=== PATIENT | female | born 1955 | race Caucasian/White ===

== ENCOUNTER 2022-11-21 10:38 | Outpatient (OUT) | payer MEDICARE, SELFPAY ==
[2022-11-21 11:11] LABS: Bilirubin Urine NEGATIVE (NEGATIVE); Blood Urine NEGATIVE (NEGATIVE); Clarity Urine CLEAR (CLEAR); Color Urine YELLOW (YELLOW); Glucose Urine UA NEGATIVE (NEGATIVE); Ketones Urine NEGATIVE (NEGATIVE); Leukocyte Esterase Urine NEGATIVE (NEGATIVE); Nitrite Urine NEGATIVE (NEGATIVE); Protein Urine NEGATIVE (NEG/TRACE); Specific Gravity Urine >=1.030 (1.005-1.025); Urobilinogen Urine 0.2 EU/dL (0.2-1.0); pH Urine 5.5 (5.0-9.0)
[2022-11-21 11:23] LABS: Microalbumin Urine Random 1.6 mg/dL (<=30.0)
[2022-11-21 11:30] LABS: Basophils Percent Auto 0.2 % (0.2-2.0); Eosinophils Absolute Auto 0.2 10^3/uL (0.0-0.7); Eosinophils Percent Auto 1.7 % (0.9-7.0); Hematocrit 41.3 % (36.0-48.0); Hemoglobin 13.3 g/dL (12.0-16.0); Immature Granulocytes Abs Auto 0.09 10^3/uL (0.00-0.03); Lymphocytes Absolute Auto 2.1 10^3/uL (1.2-3.8); Lymphocytes Percent Auto 22.1 % (20.5-60.0); Mean Corpuscular HGB Conc 32.2 g/dL (29.9-35.2); Mean Corpuscular Hemoglobin 29.4 pg (26.7-34.0); Mean Corpuscular Volume 91.4 fL (81.0-99.0); Mean Platelet Volume 10.3 fL (9.5-13.5); Monocytes Percent Auto 11.1 % (1.7-12.0); Neutrophils Percent Auto 63.9 % (43.0-75.0); Platelet Count 273 10^3/uL (150-450); Red Blood Count 4.52 10^6/uL (4.20-5.40); Red Cell Distribution Width 14.5 % (11.0-15.0); White Blood Count 9.4 10^3/uL (4.0-11.0)
[2022-11-21 11:54] LABS: Alanine Aminotransferase 32 U/L (14-59); Albumin Globulin Ratio 1.1; Albumin Level 3.5 g/dL (3.4-5.0); Alkaline Phosphatase 73 U/L (46-116); Anion Gap 9.8; Aspartate Amino Transferase 21 U/L (15-37); BUN Creatinine Ratio 21.2; Bilirubin Total 0.4 mg/dL (0.2-1.0); Calcium 8.8 mg/dL (8.5-10.1); Carbon Dioxide 30.5 mmol/L (21.0-32.0); Chloride 105 mmol/L (98-107); Estimated GFR (African America >60 (>=60); Estimated GFR (Non-African Ame >60 (>=60); Globulin 3.3 g/dL; Glucose 88 mg/dL (74-106); Potassium 4.3 mmol/L (3.5-5.1); Sodium 141 mmol/L (136-145); Total Protein 6.8 g/dL (6.4-8.2)
== END 2022-11-21 10:39 ==
LOC: LAB 10:42
PROVIDERS: PCP Internal Medicine; Visit Provider Internal Medicine
DX: N17.9 Acute kidney failure, unspecified (principal); Z98.84 Bariatric surgery status
CPT/HCPCS: 36415; 80053; 81003; 82043; 85025

== ENCOUNTER 2022-12-11 12:19 | Outpatient (OUT) | payer MEDICARE, SELFPAY ==
[2022-12-11 16:02] LABS: Basophils Percent Auto 0.3 % (0.2-2.0); Eosinophils Absolute Auto 0.2 10^3/uL (0.0-0.7); Eosinophils Percent Auto 1.7 % (0.9-7.0); Hematocrit 41.8 % (36.0-48.0); Hemoglobin 13.3 g/dL (12.0-16.0); Immature Granulocytes Abs Auto 0.23 10^3/uL (0.00-0.03); Immature Granulocytes Pct Auto 2.2 % (0.0-0.5); Lymphocytes Percent Auto 19.3 % (20.5-60.0); Mean Corpuscular HGB Conc 31.8 g/dL (29.9-35.2); Mean Corpuscular Hemoglobin 29.2 pg (26.7-34.0); Mean Corpuscular Volume 91.9 fL (81.0-99.0); Mean Platelet Volume 10.7 fL (9.5-13.5); Monocytes Percent Auto 9.4 % (1.7-12.0); Neutrophils Absolute Auto 7.1 10^3/uL (1.4-6.5); Neutrophils Percent Auto 67.1 % (43.0-75.0); Platelet Count 321 10^3/uL (150-450); Red Blood Count 4.55 10^6/uL (4.20-5.40); Red Cell Distribution Width 14.9 % (11.0-15.0); White Blood Count 10.6 10^3/uL (4.0-11.0)
[2022-12-11 16:10] LABS: Erythrocyte Sedimentation Rate 14 mm/hr (<=30)
[2022-12-11 17:07] LABS: Alanine Aminotransferase 21 U/L (14-59); Albumin Level 3.6 g/dL (3.4-5.0); Alkaline Phosphatase 72 U/L (46-116); Anion Gap 10.2; Aspartate Amino Transferase 21 U/L (15-37); BUN Creatinine Ratio 14.7; Bilirubin Total 0.4 mg/dL (0.2-1.0); Calcium 8.4 mg/dL (8.5-10.1); Chloride 106 mmol/L (98-107); Estimated GFR (African America >60 (>=60); Estimated GFR (Non-African Ame 50 (>=60); Globulin 3.5 g/dL; Glucose 98 mg/dL (74-106); Potassium 4.2 mmol/L (3.5-5.1); Sodium 141 mmol/L (136-145); Total Protein 7.1 g/dL (6.4-8.2)
[2022-12-11 17:11] LABS: C Reactive Protein <0.2 mg/dL (<=1.0)
== END 2022-12-11 12:20 | disposition home or self-care (01) ==
LOC: LAB 12:22
PROVIDERS: PCP Internal Medicine
DX: M31.5 Giant cell arteritis with polymyalgia rheumatica (principal); R76.0 Raised antibody titer; Z79.899 Other long term (current) drug therapy
CPT/HCPCS: 36415; 80053; 85025; 85652; 86140

== ENCOUNTER 2023-05-29 10:08 | Outpatient (OUT) | payer MEDICARE, SELFPAY ==
[2023-05-29 10:38] LABS: Basophils Percent Auto 0.1 % (0.2-2.0); Eosinophils Absolute Auto 0.2 10^3/uL (0.0-0.7); Eosinophils Percent Auto 2.4 % (0.9-7.0); Hematocrit 38.2 % (36.0-48.0); Hemoglobin 11.7 g/dL (12.0-16.0); Immature Granulocytes Abs Auto 0.08 10^3/uL (0.00-0.03); Immature Granulocytes Pct Auto 0.9 % (0.0-0.5); Lymphocytes Absolute Auto 2.4 10^3/uL (1.2-3.8); Lymphocytes Percent Auto 26.4 % (20.5-60.0); Mean Corpuscular HGB Conc 30.6 g/dL (29.9-35.2); Mean Corpuscular Hemoglobin 30.2 pg (26.7-34.0); Mean Corpuscular Volume 98.7 fL (81.0-99.0); Monocytes Absolute Auto 0.9 10^3/uL (0.3-0.8); Monocytes Percent Auto 10.1 % (1.7-12.0); Neutrophils Absolute Auto 5.5 10^3/uL (1.4-6.5); Neutrophils Percent Auto 60.1 % (43.0-75.0); Platelet Count 331 10^3/uL (150-450); Red Blood Count 3.87 10^6/uL (4.20-5.40); Red Cell Distribution Width 13.9 % (11.0-15.0); White Blood Count 9.2 10^3/uL (4.0-11.0)
[2023-05-29 11:13] LABS: Percent Iron Saturation 16.3 %
[2023-05-29 11:17] LABS: Alanine Aminotransferase 41 U/L (14-59); Albumin Level 3.5 g/dL (3.4-5.0); Alkaline Phosphatase 55 U/L (46-116); Anion Gap 12.4; Aspartate Amino Transferase 26 U/L (15-37); BUN Creatinine Ratio 22.8; Bilirubin Total 0.3 mg/dL (0.2-1.0); Calcium 8.7 mg/dL (8.5-10.1); Carbon Dioxide 32.5 mmol/L (21.0-32.0); Chloride 107 mmol/L (98-107); Estimated GFR (African America 53 (>=60); Estimated GFR (Non-African Ame 43 (>=60); Globulin 3.4 g/dL; Glucose 77 mg/dL (74-106); Potassium 3.9 mmol/L (3.5-5.1); Sodium 148 mmol/L (136-145); Total Protein 6.9 g/dL (6.4-8.2)
[2023-06-02 04:06] LABS: Vitamin B6, Plasma 16.3 ug/L (3.4-65.2)
== END 2023-05-29 10:09 | disposition home or self-care (01) ==
LOC: LAB 10:10
PROVIDERS: PCP Internal Medicine; Visit Provider Nurse Practitioner Family
DX: M31.5 Giant cell arteritis with polymyalgia rheumatica (principal); R76.0 Raised antibody titer; Z79.899 Other long term (current) drug therapy; Z98.84 Bariatric surgery status
CPT/HCPCS: 36415; 80053; 82306; 82607; 82728; 83540; 83550; 84207; 85025; 85652; 86140

== ENCOUNTER 2023-05-29 10:11 | Outpatient (OUT) | payer MEDICARE, SELFPAY ==
[2023-05-29 10:56] LABS: C Reactive Protein <0.50 mg/dL (<=0.50)
[2023-05-29 11:07] LABS: Erythrocyte Sedimentation Rate 37 mm/hr (<=30)
== END 2023-05-29 10:12 | disposition home or self-care (01) ==
PROVIDERS: PCP Internal Medicine; Visit Provider Registered Nurse
DX: M31.5 Giant cell arteritis with polymyalgia rheumatica (principal); R76.0 Raised antibody titer; Z79.899 Other long term (current) drug therapy
CPT/HCPCS: 36415; 85652; 86140

== ENCOUNTER 2023-11-20 06:46 | Outpatient (OUT) | payer MEDICARE, SELFPAY ==
[2023-11-20 07:08] LABS: Erythrocyte Sedimentation Rate 28 mm/hr (<=30)
[2023-11-20 07:22] LABS: C Reactive Protein 0.59 mg/dL (<=0.50)
== END 2023-11-20 06:47 | disposition home or self-care (01) ==
LOC: LAB 06:47
PROVIDERS: PCP Internal Medicine; Visit Provider Registered Nurse
DX: M31.5 Giant cell arteritis with polymyalgia rheumatica (principal); R76.0 Raised antibody titer; Z79.899 Other long term (current) drug therapy
CPT/HCPCS: 36415; 85652; 86140

== ENCOUNTER 2023-12-05 09:58 | Outpatient (OUT) | payer MEDICARE, SELFPAY ==
--- OUTSIDE RECORDS SUMMARY | 2023-12-05 10:08 | XMS_ITS | CCD ---
Author Organization [facility] Care Team Providers Care Reeling Operator Name Role Phone Jorge Luis Enriquez Unavailable MD Tamia France Primary Care Provider MD Tamia France Attending Provider TAMIA FRANCE Primary Care Unavailable JOSUÉ WOLFE Referring Unavailable JOSUÉ WOLFE Referring Unavailable TAMIA FRANCE Primary Care Unavailable JOSUÉ WOLFE Attending Unavailable TAMIA FRANCE Primary Care Unavailable MD Jorge Luis Enriquez Attending Provider [phone] JESUS, DR CANTRELL Primary Care Unavailable MISC, DR MONTOYA Attending Unavailable MISC, DR MONTOYA Consulting Unavailable MISC, DR MONTOYA Admitting Unavailable JESUS, DR CANTRELL Primary Care Unavailable MISC, DR MONTOYA Attending Unavailable MISC, DR MONTOYA Consulting Unavailable MISC, DR MONTOYA Admitting Unavailable JESUS, DR CANTRELL Attending Unavailable HILL, DR CANTRELL Consulting Unavailable HILL, DR CANTRELL Primary Care Unavailable HILL, DR CANTRELL Admitting Unavailable Tamia France MD Primary Care Provider MD Tamia France Primary Care Provider [phone] MD Tamia France Attending Provider MD Jorge Luis Enriquez Attending Provider MD Tamia France Primary Care Provider [phone] MD Tamia France Attending Provider MD Jorge Luis Enriquez Attending Provider Self, Referral Attending Provider Unavailable MD Tamia France Primary Care Provider MEG Palomares Attending Provider Tamia France MD Primary Care Provider Jr. Kalen Ramírez DO Unavailable Kaila Zaman DO Unavailable [phone] MD Tamia France Primary Care Provider MEG Palomares Attending Provider [phone] DO Gomez Hannah Emergency Provider MD Tamia France Attending Provider MD Tamia France Referring Provider [phone] MD Tamia France Primary Care Provider MD Jorge Luis Enriquez Attending Provider Tamia France Primary Care Unavailable Jesus, Tamia Attending Unavailable Hill, Tamia Referring Unavailable Hill, Tamia Admitting Unavailable Jorge Luis Enriquez Attending Unavailable Hill, Tamia Primary Care Unavailable Mina, Jorge Luis Admitting Unavailable Mina, Jorge Luis Admitting Unavailable Mina, Jorge Luis Attending Unavailable Hill, Tamia Primary Care Unavailable Gomez Hannah Admitting Unavailable Gomez Hannah Attending Unavailable Jesus, Tamia Primary Care Unavailable Self, Referral Admitting Unavailable Self, Referral Attending Unavailable Jesus, Tamia Primary Care Unavailable RisaliYessenia chi Admitting Unavailable Yessenia Palomares Attending Unavailable Hill, Tamia Primary Care Unavailable Hill, Tamia Attending Unavailable Hill, Tamia Admitting Unavailable Hill, Tamia Primary Care Unavailable RADHA SAPP Attending Unavailable HILL, TAMIA L Referring Unavailable HILL, TAMIA L Referring Unavailable DIDION, CANDY Metcalf Attending Unavailable WENGERD, COLTEN Attending Unavailable HILL, TAMIA L Referring Unavailable BROUSE, BETI Christiansen Attending Unavailable HILL, TAMIA L Referring Unavailable TESMONDGEORGE Attending Unavailable JUDD ROSS Attending Unavailable SATHISH SHIELDS Attending Unavailable HILL, TAMIA L Referring Unavailable BROUSE, BETI Christiansen Attending Unavailable HILL, TAMIA L Referring Unavailable GUDUY GRIFFIN Attending Unavailable HILL, TAMIA L Referring Unavailable WENGERD, COLTEN Attending Unavailable HILL, TAMIA L Referring Unavailable BROUSE, BETI Christiansen Attending Unavailable HILL, TAMIA L Referring Unavailable PETITTIRHONDA Attending Unavailable RADHA SAPP Attending Unavailable HILL, TAMIA L Referring Unavailable DIDION, CANDY Metcalf Attending Unavailable BROUSE, BETI Christiansen Attending Unavailable HILL, TAMIA L Referring Unavailable WENGERD, COLTEN Attending Unavailable HILL, TAMIA L Referring Unavailable DEREKABDULLAHI OMER Attending Unavailable HILL, TAMIA L Referring Unavailable HILL, TAMIA L Attending Unavailable HILL, TAMIA L Referring Unavailable Medications Current Medications Medication Drug Class(es) Dates Sig (Normalized) Sig (Original) ALPRAZolam 0.25 mg oral tablet (20 sources) Benzodiazepine Start: 11-22-2019 take 0.25 mg by mouth three times daily Alprazolam Active 0.25 MG PO Three times daily November 22, 2019 12:00am take 1 tablet by erin th every twenty-four hours Xanax 0.25 MG 1 tablet Orally once a day Active Comment on above: Take 0.25 mg by mout h three times daily as needed. Ascorbate Calcium-Bioflavonoid (10 sources) Vitamin C Start: 10-30-2017 take 500-550 mg by mouth once daily Ascorbate Calcium-Bioflavonoid (Colleen-C With Bioflavonoids) 500-200 mg Tablet Active 500 - 550 MG PO Daily October 29, 2017 11:00pm Start: 10-30-2017 take 500-550 mg by m outh once daily Ascorbate Calcium-Bioflavonoid (Colleen-C With Bioflavonoids) 500-200 mg Tablet Active 500 - 550 MG PO Daily October 30, 2017 12:00am ascorbic acid/bi oflavonoids (COLLEEN C ORAL) Take by mouth. 0 Active Comment on above: Take by mouth. 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 60 tablet 11 07/03/2023 08/02/2023 Active 24 hr buPROPion hydrochloride 300 mg extended release oral tablet (20 sources) Aminoketone Start: 05-15-20 17 End: 10-31-19 18 take 300 mg by mouth once daily Bupropion Hcl Active 300 MG PO Daily October 30, 2017 12:00am buPROPion HCl 30 0 mg Daily Active Comment on above: Take 300 mg by mouth once daily. Hnx-J1-Zkr53-Zinc-C op-Josiah-Bor (18 sources) Start: 10-30-2017 take 1 tablet by mouth once daily Snw-L1-Lji09-Zinc- Ekv-Icmh-Twc Active 1 TAB PO Daily October 29, 2017 11:00pm Start: 10-30-2017 End: 10-30-2017 Xgm-U8-[id number]-Aqxn-Bsf-Tiof-L or Discontinued TABLET October 29, 2017 11:00pm October 30, 2017 1:59pm Start: 10-30-2017 take 1 tablet by erin th once daily Zyd-D3-Tmn05Ahl54-Lizl-Aan-Gfsg-Jec Active 1 TAB PO Daily October 30, 2017 12:00am Start: 10-30-2017 End: 10-30-2017 Wrg-O4-[id number]-Kzlo-Wfs-Jifm-E or Discontinued TABLET October 30, 2017 12:00am October 30, 2017 2:59pm Calcium + D 500-1000-40 MG-U NT-MCG (13 sources) Calcium + D 500- 1000-40 MG-UNT-MCG Orally Active Calcium Carbonate-Vit D-Min (CALTRATE 600+D PLUS MINERALS PO) (3 sources) Calcium Carbonat e-Vit D-Min (CALTRATE 600+D PLUS MINERALS PO) Take by mouth. 0 Active cephalexin 500 mg oral capsule (2 sources) Cephalosporin Antibacterial Start: End: take 1 capsule by mouth in the morning cephalexin (Keflex) 500 MG capsule Indications: Acute cystitis with hematuria Take 1 capsule (500 mg) by mouth in the morning and 1 capsule (500 mg) before bedtime. Do all this for 5 days. 10 capsule 0 07/27/2023 08/01/2023 Active cholecalciferol 0.025 mg oral tablet (3 sources) Vitamin D cholecalciferol (Vitamin D3) 25 MCG (1000 UT) tablet 1 (one) time each day at the same time. 0 Active 1 ml denosumab 60 mg/ml prefilled syringe (20 sources) RANK Ligand Inhibitor Start: Denosumab (Prolia) 60 mg/mL Syringe Active 60 MG SUBCUT EVERY 6 MONTHS April 30, 2021 1:00am Colleen-C 500-550 MG (13 sources) Colleen-C 500-550 MG Orally Active ezetimibe 10 mg oral tablet (1 source) Dietary Cholesterol Absorption Inhibitor Start: 10-07-2023 take 10 mg by mouth once daily Ezetimibe Active 10 MG PO Daily October 07, 2023 12:00am gabapentin 300 mg oral capsule (20 sources) Anti-epileptic Agent Start: 03-18-2023 End: 09-09-2023 take 300 mg by mouth three times daily Gabapentin Active 300 MG PO Three times daily September 09, 2023 10:36am Start: 10-03-2021 End: 10-07-2023 take 300 mg by mouth once daily Gabapentin Active 300 MG PO Daily September 09, 2023 10:36am Comment on above: Take by mouth. lisinopril 10 mg oral tablet (4 sources) Angiotensin Converting Enzyme Inhibitor Start: 10-07-2023 take 10 mg by mouth once daily Lisinopril Active 10 MG PO Daily October 07, 2023 12:00am Start: 04-24-2023 take 1 tablet by erin th once daily in the morning lisinopril 10 MG tablet Indications: Primary hypertension (CMS/HCC) TAKE 1 TABLET BY MOUTH EVERY DAY IN THE MORNING 90 tablet 4 04/24/2023 Active Multiple Vitamins-Minerals (PRESERVISION AREDS 2 PO) (3 sources) Multiple Vitamins-Minerals (PRESERVISION AREDS 2 PO) 1 (one) time each day at the same time. 0 Active omeprazole 40 mg delayed release oral capsule (20 sources) Proton Pump Inhibitor Start: 024 take 40 mg by mouth once daily Omeprazole Active 40 MG PO Daily 30 30 September 22, 2023 12:00am Start: 03-18-2023 End: 09-22-2023 take 40 mg by mouth twice daily Omeprazole Discontinued 40 MG PO 2 times daily March 18, 2023 12:00am September 22, 2023 8:54am Start: 12-01-2018 End: 04-09-2022 Omeprazole Discontinued 40 M G PO As Directed December 01, 2019 2:12pm April 09, 2022 6:47am Start: 11-30-2018 End: 04-09-2022 take 40 mg by mouth twice daily Omeprazole Discontinued 40 MG PO Twice daily 180 November 30, 2018 12:00am December 01, 2019 2:12pm predniSONE 5 mg oral tablet (20 sources) Start: 12-09-2022 take 7.5 mg by mouth in the morning predniSONE (Deltasone) 5 MG tablet Take 7.5 mg by mouth in the morning. 0 12/09/2022 Active Start: 02-25-2022 predniSONE (DE LTASONE) 1 mg tablet Start: 11-12-2018 take 5 mg by mouth once daily Prednisone Active 5 MG PO Daily November 12, 2018 12:00am Start: 11-12-2018 take 10 mg by mouth once daily Prednisone Active 10 MG PO Daily November 12, 2018 12:00am Start: 11-12-2018 take 3 mg by mouth once daily Prednisone Active 3 MG PO Daily November 12, 2018 12:00am take 1 tablet by erin th once daily predniSONE 2 MG 1 tablet Orally Once a day for 30 day(s) Active Dl730-Pwin-Gqdjj Acid ( Multi) 27-800 mg-mcg Tablet (9 sources) Start: 10-30-2017 take 1 tablet by mouth once daily Wy980-Guwj-Lpzsy Acid ( Multi) 27-800 mg-mcg Tablet Active 1 TAB PO Daily October 29, 2017 11:00pm Start: 10-30-2017 take 1 tablet by erin th once daily Hb608-Vsrs-Tjydp Acid ( Multi) 27-800 mg-mcg Tablet Active 1 TAB PO Daily October 30, 2017 12:00am Vitamins 0.8 MG (13 sources) take 1 tablet by mouth once cristel y Vitamins 0.8 MG 1 tablet Orally Once a day Active PreserVision AREDS 2+Multi V it - (13 sources) PreserVision ARE DS 2+Multi Vit - Orally Active rosuvastatin calcium 10 mg oral tablet (3 sources) HMG-CoA Reductase Inhibitor Start: 05-12-2023 End: 11-08-2023 take 1 tablet by mouth at bedtime rosuvastatin (Crestor) 10 MG tablet Indications: Mixed hyperlipidemia (CMS/HCC) Take 1 tablet (10 mg) by mouth at bedtime. 30 tablet 5 05/12/2023 11/08/2023 Active Vit C,S-Bi-Hgjkc-Lutein -Zeaxan (Preservision Areds-2) 140-200-18-1 ov-sqgq-xx-mg Capsule (9 sources) Start: 10-30-2017 take 1 tablet by mouth once daily Vit C,C-Wi-Yepmc-Lutein- Zeaxan (Preservision Areds-2) 094-437-16-1 rb-nqag-wc-mg Capsule Active 1 TAB PO Daily October 29, 2017 11:00pm Start: 10-30-2017 take 1 tablet by erin th once daily Vit C,N-Tu-Ppubx-Lutein-Zeaxan (Preservision Areds-2) 059-780-28-1 uy-boqh-md-mg Capsule Active 1 TAB PO Daily October 30, 2017 12:00am Vitamin B-12 1000 MCG (2 sources) take 1 tablet by mouth once daily Vitamin B-12 1000 MCG 1 tablet Orally Once a day Active vitamin B12 (20 sources) Vitamin B12 Start: 08-12-2017 take 1 tablet by mouth once daily Cyanocobalamin (Vitamin B-12) (Vitamin B-12) 500 mcg Tablet Active 1 TAB PO Daily August 12, 2017 1:00am Start: 08-12-2017 take 1 tablet by erin th once daily Cyanocobalamin (Vitamin B-12) (Vitamin B-12) 500 mcg Tablet Active 1 TAB PO Daily August 12, 2017 1:00am Start: 02-16-2010 take 1 tablet under the tongue once daily CYANOCOBALAMIN (VITAMIN B-12) 1,000 MCG SUBLINGUAL TAB Take one(1) tablet daily. 0 02/16/2010 Active take 1 tablet by erin th every twenty-four hours Vitamin B-12 1000 MCG 1 tablet Orally Once a day Active Comment on above: Take one(1) tablet d aily. Completed/Discontinued Medications Medication Drug Class(es) Dates Sig (Normalized) Sig (Original) acetaminophen 325 mg / oxyCODONE hydrochloride 5 mg oral tablet (18 sources) Opioid Agonist Start: 12-01-2019 End: 12-01-2019 take 1 tablet by mouth every four to six hours Oxycodone-Acetamino phen (Percocet) 5-325 mg Tablet Discontinued 1 TAB PO EVERY 4-6 HOURS December 01, 2019 12:00am December 01, 2019 2:12pm Start: 05-15-2017 End: 06-28-2019 take 1 tablet by mouth every four to six hours Oxycodone-Acetaminophen (Percocet) 5-325 mg Tablet Discontinued 1 TAB PO EVERY 4-6 HOURS May 15, 2017 1:00am June 28, 2019 7:24am calcium carbonate 1500 mg / cholecalciferol 800 unt chewable tablet (10 sources) Vitamin D Start: 08-12-2017 End: 10-01-2017 take 1 tablet by mouth twice daily Calcium Carbonate-Vitamin D3 (Caltrate 600 Plus D) 600 mg (1,500 mg)-800 unit Tablet,Chewable Discontinued 1 TAB PO Twice daily August 12, 2017 1:00am October 01, 2017 9:58am Start: 02-16-2010 calcium carbon ate/vitamin d3(CALCIUM 600 + D(3) 600 MG (1,500)-200 UNIT TAB) Take one(1) tablet twice daily. 0 02/16/2010 Active Comment on above: Take one(1) tablet t wice daily. diclofenac sodium 0.01 mg/mg topical gel (9 sources) Nonsteroidal Anti-inflammatory Drug Start: 05-15-20 17 End: 10-02-19 18 Diclofenac Sodium Discontinued 1 APPLIC TOPICAL Daily May 15, 2017 1:00am October 01, 2017 9:58am estrogens, conjugated (longterm) 0.625 mg/ml vaginal cream (9 sources) Estrogen Start: 08-12-19 18 End: 10-02-19 18 Conjugated Estrogens Discontinued 0.625 MG Twice a Week August 12, 2017 1:00am October 01, 2017 9:58am folic acid 1 mg oral tablet (20 sources) Start: 11-13-19 End: 10-07-19 24 take 1 mg by mouth once daily Folic Acid Discontinued 1 MG PO Daily November 12, 2018 12:00am October 07, 2023 7:25am hydrocortisone 10 mg/ml / neomycin 3.5 mg/ml / polymyxin b 26607 unt/ml otic suspension (11 sources) Aminoglycoside Antibacterial, Polymyxin-class Antibacterial, Corticosteroid Start: 11-08-19 Ejhvfpcd-Ewbpoviby-X C 3.5-03912-7 3 drops right ear Three times a day for 7 days October, Not-Taking Start: 11-07-2021 methotrexate 2.5 mg oral tablet (20 sources) Folate Analog Metabolic Inhibitor Start: 11-12-2018 End: 10-07-2023 take 2.5 mg by mouth every week Methotrexate Sodium Discontinued 2.5 MG PO every week November 12, 2018 12:00am October 07, 2023 7:26am PNV Comb No.59/Iron/FA/DHA (-DHA ORAL) (1 source) PNV Comb No.59/Iron/FA/DHA (-DHA ORAL) Take by mouth. 0 Active Comment on above: Take by mouth. solifenacin succinate 10 mg oral tablet (9 sources) Cholinergic Muscarinic Antagonist Start: 05-15-2017 End: 08-12-2017 take 1 tablet by mouth once daily Solifenacin (Vesicare) 10 mg Tablet Discontinued 10 MG PO Daily May 15, 2017 1:00am August 12, 2017 11:09am traMADol hydrochloride 50 mg oral tablet (14 sources) Opioid Agonist Start: 01-04-2020 traMADol (ULTR AM) 50 mg tablet Take by mouth. 0 01/04/2020 Active Comment on above: Take by mouth. vit C/E/Zn/coppr/lutein/ zeaxan (PRESERVISION AREDS-2 ORAL) (1 source) vit C/E/Zn/coppr/lutei n/zeaxan (PRESERVISION AREDS-2 ORAL) Take by mouth. 0 Active Comment on above: Take by mouth. Problems Active Problems Problem Classification Problem Date Documented Da te Episodic/Chronic Abdominal pain (16 sources) Epigastric pain; Translations: [Epigastric pain] Onset: 09-07-2023 09-07-2023 Episodic Acute cerebrovascular disease (3 sources) Cerebral infarction due to thrombosis of middle cerebral artery; Translations: [Cerebral infarction due to thrombosis of left middle cerebral artery] Onset: 04-24-2023 07-07-2023 Chronic Anxiety disorders (6 sources) Generalized anxiety disorder; Translations: [Generalized anxiety disorder] Onset: 10-21-2022 Resolved: 05-28-2023 10-21-2022 Chronic Cancer of other female genital organs (1 source) Carcinoma in situ of vagina; Translations: [Carcinoma in situ of vagina] Onset: 01-23-2010 01-23-2010 Chronic Diabetes mellitus without complication (1 source) Diabetes mellitus; Translations: [Type 2 diabetes mellitus without complications] 02-16-2010 Chronic Disorders of lipid metabolism (4 sources) Hyperlipidemia; Translations: [Hyperlipidemia, unspecified] Onset: 04-01-2023 02-16-2010 Chronic Diverticulosis and diverticulitis (13 sources) Diverticular disease of colon; Translations: [Diverticulosis of intestine, part unspecified, without perforation or abscess without bleeding] Chronic Endometriosis (1 source) Endometriosis (clinical); Translations: [Endometriosis, unspecified] 02-16-2010 Chronic Gastroduodenal ulcer (except hemorrhage) (20 sources) Gastrojejunal ulcer; Translations: [Gastrojejunal ulcer, unspecified as acute or chronic, without hemorrhage or perforation] 01-27-2019 Chronic Genitourinary symptoms and ill-defined conditions (2 sources) Dysuria; Translations: [Dysuria] 07-27-2023 Episodic Hemorrhoids (13 sources) Hemorrhoids; Translations: [Unspecified hemorrhoids] Episodic Immunizations and screening for infectious disease (1 source) Raised antibody titer; Translations: [RAISED ANTIBODY TITER] Onset: 10-17-2022 Episodic Mood disorders (7 sources) Depressive disorder; Translations: [Depression] Onset: 10-21-2022 Resolved: 05-28-2023 02-16-2010 Chronic Osteoarthritis (15 sources) Unilateral primary osteoarthritis, left hip; Translations: [Localized, primary osteoarthritis] Onset: 12-30-2006 Resolved: 11-22-2022 Chronic Osteoporosis (9 sources) Age-related osteoporosis without current pathological fracture; Translations: [Senile osteoporosis] Onset: 12-31-2021 Resolved: 11-22-2022 10-21-2022 Chronic Other aftercare (1 source) 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; Translations: [OTH ARMED GUARD CURRENT DRUG THERAPY] Onset: 10-17-2022 Episodic Other circulatory disease (3 sources) History of cerebrovascular accident; Translations: [Personal history of transient ischemic attack (TIA), and cerebral infarction without residual deficits] Onset: 05-28-2023 05-28-2023 Episodic Other connective tissue disease (1 source) Polymyalgia rheumatica; Translations: [PMR (polymyalgia rheumatica) ([facility])] Onset: 02-26-2022 Chronic Other connective tissue disease (4 sources) Polymyalgia rheumatica; Translations: [Polymyalgia rheumatica] Onset: 10-21-2022 02-26-2022 Chronic Other connective tissue disease (1 source) Pain in right hand; Translations: [Bilateral hand pain] Onset: 02-26-2022 Episodic Other connective tissue disease (1 source) Pain in left hand; Translations: [Bilateral hand pain] Onset: 02-26-2022 Episodic Other connective tissue disease (1 source) Pain of bilateral hands; Translations: [Pain in right hand] 02-26-2022 Episodic Other gastrointestinal disorders (13 sources) Diarrhea; Translations: [Diarrhea, unspecified] Episodic Other gastrointestinal disorders (13 sources) Swollen abdomen; Translations: [Abdominal distension (gaseous)] Episodic Other gastrointestinal disorders (13 sources) History of bypass of stomach; Translations: [Bariatric surgery status] Episodic Other nervous system disorders (15 sources) Chronic pain; Translations: [Other chronic pain] 09-09-2023 Chronic Other nervous system disorders (11 sources) Other chronic pain; Translations: [Other chronic pain] Onset: 05-28-2021 Resolved: 02-07-2022 Chronic Other nervous system disorders (1 source) Other chronic pain; Translations: [Other chronic pain] Onset: 03-18-2023 Chronic Other non-traumatic joint disorders (1 source) Pain in right shoulder; Translations: [Pain of both shoulder joints] Onset: 02-26-2022 Episodic Other non-traumatic joint disorders (1 source) Pain in left shoulder; Translations: [Pain of both shoulder joints] Onset: 02-26-2022 Episodic Other non-traumatic joint disorders (1 source) Pain in right hip; Translations: [Hip pain, bilateral] Onset: 02-26-2022 Episodic Other non-traumatic joint disorders (1 source) Pain in left hip; Translations: [Hip pain, bilateral] Onset: 02-26-2022 Episodic Other non-traumatic joint disorders (1 source) Bilateral shoulder joint pain; Translations: [Pain in right shoulder] 02-26-2022 Episodic Other nutritional; endocrine; and metabolic disorders (13 sources) Body mass index 25-29 - overweight; Translations: [Body mass index (BMI) 28.0-28.9, adult] Episodic Spondylosis; intervertebral disc disorders; other back problems (20 sources) Lumbosacral spondylosis without myelopathy; Translations: [Spondylosis without myelopathy or radiculopathy, lumbosacral region] Onset: 05-28-2021 Resolved: 05-28-2023 Chronic Spondylosis; intervertebral disc disorders; other back problems (11 sources) Low back pain; Translations: [Other low back pain] Onset: 10-21-2022 10-21-2022 Episodic Systemic lupus erythematosus and connective tissue disorders (4 sources) Giant cell arteritis with polymyalgia rheumatica; Translations: [GIANT CELL ARTERIT POLYMYALG RHEUM] Onset: 10-11-2022 Chronic Unclassified (1 source) Cerebral infarction due to unspecified occlusion or stenosis of left vertebral artery; Translations: [Cerebral infarction due to unspecified occlusion or stenosis of left vertebral artery] Onset: 06-14-2023 Unclassified (1 source) Encounter for screening mammogram for malignant neoplasm of breast; Translations: [Encounter for screening mammogram for malignant neoplasm of breast] Onset: 04-22-2023 Urinary tract infections (2 sources) Acute cystitis; Translations: [Acute cystitis with hematuria] 07-27-2023 Episodic Past or Other Problems Problem Classification Problem Date Documented Da te Episodic/Chronic Cardiac dysrhythmias (1 source) Palpitations; Translations: [Palpitations] Onset: 06-14-2023 Episodic Diabetes mellitus without complication (1 source) Hyperglycemia, unspecified; Translations: [HYPERGLYCEMIA UNSPECIFIED] Onset: 12-31-2021 Episodic Joint disorders and dislocations; trauma-related (1 source) Tear of lateral meniscus of knee; Translations: [Other tear of lateral meniscus, current injury, unspecified knee, initial encounter] Onset: 03-17-2007 03-17-2007 Episodic Menopausal disorders (3 sources) Atrophy of vagina; Translations: [Postmenopausal atrophic vaginitis] Onset: 10-21-2022 Resolved: 11-22-2022 11-22-2022 Chronic Nonmalignant breast conditions (3 sources) Fibrocystic disease of breast; Translations: [Diffuse cystic mastopathy of unspecified breast] Onset: 10-21-2022 Resolved: 11-22-2022 11-22-2022 Chronic Other bone disease and musculoskeletal deformities (1 source) Other specified disorders of bone density and structure, unspecified site; Translations: [OTH D/O BONE DEN STRUCT UNS SITE] Onset: 06-13-2022 Episodic Other connective tissue disease (3 sources) History of total hip arthroplasty; Translations: [Presence of left artificial hip joint] Onset: 09-03-2022 Resolved: 06-01-2023 06-01-2023 Chronic Other connective tissue disease (1 source) Enthesopathy of hip region; Translations: [Other specified enthesopathies of unspecified lower limb, excluding foot] Onset: 12-30-2006 12-30-2006 Episodic Other connective tissue disease (3 sources) Pain in limb; Translations: [Pain in unspecified limb] Onset: 10-21-2022 Resolved: 11-22-2022 11-22-2022 Episodic Other gastrointestinal disorders (1 source) Bariatric surgery status; Translations: [BARIATRIC SURGERY STATUS] Onset: 12-31-2021 Episodic Other gastrointestinal disorders (3 sources) History of bariatric surgical procedure; Translations: [Bariatric surgery status] Onset: 11-22-2022 11-22-2022 Episodic Other nervous system disorders (3 sources) Carpal tunnel syndrome; Translations: [Carpal tunnel syndrome, unspecified upper limb] Onset: 10-21-2022 Resolved: 11-22-2022 11-22-2022 Chronic Other nervous system disorders (3 sources) General unsteadiness; Translations: [Unsteadiness on feet] Onset: 04-24-2023 04-24-2023 Episodic Other nervous system disorders (3 sources) Paresthesia of hand ; Translations: [Paresthesia of skin] Onset: 10-21-2022 Resolved: 11-22-2022 11-22-2022 Episodic Other screening for suspected conditions (not mental disorders or infectious disease) (4 sources) Encounter for screening for lipoid disorders; Translations: [ENC SCREENING FOR LIPOID DISORDERS] Onset: 12-28-2021 Episodic Unclassified (9 sources) Other low back pain; Translations: [Other low back pain] Unclassified (9 sources) Other low back pain M54.59 Onset: 05-28-2021 Resolved: 02-07-2022 Results Test Name Value Interpretation Reference Range Facility Activated partial thrombopla stin time (aPTT) in platelet poor plasma by coagulation aOrdered By: PROVIDER TEMP on 09-07-2023 aPTT Coag (PPP) [Time] 30.0 s 25.1-36.5 [facility] Comment on above: A hematocrit value g reater than 55% may lead to inaccurate results in coagulation testing. Patients having hematocrit values >55% require a special collection tube for coagulation studies. Please contact the laboratory at [phone] for redraw instructions. Alanine aminotransferase [En zymatic activity/volume] in Serum or PlasmaOrdered By: PROVIDER TEMP on 09-07-2023 ALT [Catalytic activity/Vol] 40 U/L 7-52 [facility] Albumin [Mass/volume] in Ser um or Plasma by Bromocresol green (BCG) dye binding methoOrdered By: PROVIDER TEMP on 09-07-2023 Albumin BCG dye [Mass/Vol] 4.8 g/dL 3.5-5.7 [facility] Alkaline phosphatase [Enzyma tic activity/volume] in Serum or PlasmaOrdered By: PROVIDER TEMP on 09-07-2023 ALP [Catalytic activity/Vol] 59 U/L 34-104 [facility] Aspartate aminotransferase [ Enzymatic activity/volume] in Serum or PlasmaOrdered By: PROVIDER TEMP on 09-07-2023 AST [Catalytic activity/Vol] 34 U/L 13-39 [facility] Automated erythrocytes count in urine sediment (number/area)Ordered By: PROVIDER TEMP on 09-07-2023 RBC Auto (Urine sed) [#/Area] 3-4 [HPF] 0-4 [facility] Automated leukocytes count i n urine sediment (number/area)Ordered By: PROVIDER TEMP on 09-07-2023 WBC Auto (Urine sed) [#/Area] 3-4 [HPF] 0-4 [facility] Basophils Auto (Bld) [#/Vol] Ordered By: PROVIDER TEMP on 09-07-2023 Basophils (Bld) [#/Vol] 0.0 10*3/uL 0.0-0.2 [facility] Basophils/100 WBC Auto (Bld) Ordered By: PROVIDER TEMP on 09-07-2023 Basophils/100 WBC (Bld) 0.3 % . [facility] Bilirubin Test strip Ql (U)O rdered By: PROVIDER TEMP on 09-07-2023 Bilirubin Ql (U) Negative Negative [facility] Bilirubin.total [Mass/volume ] in Serum or PlasmaOrdered By: PROVIDER TEMP on 03-24-2024 Bilirubin [Mass/Vol] 0.4 mg/dL 0.3-1.[address] [facility] CT abdomen pelvis w conon CT abdomen pelvis w con [facility] [address] [place] [address] [place], [place] [id number] CT Scan Report Signed Patient: Ameena Bae MR#: [id number] : 1955 Acct:[id number] Age/Sex: 68 / F ADM Date: 09/07/23 Loc: ER Room: Type: [facility] ER Attending Dr: Copies to: DO VALDO Arvizu, PROVIDER Ordering Provider: VALDO PROVIDER Date of Service: 09/07/23 CT/CT abdomen pelvis w con: PAIN CT Abdomen and Pelvis withcontrast TECHNIQUE: Axial imaging with 2-D reconstruction.90 cc of Isovue-300. The CT exam was performed using one or more the following dose reduction techniques: Automated exposure control, adjustment of the MA and/or Kv according to patient size, or use of the iterative reconstruction technique. COMPARISON: None History: Bilateral flank pain with radiation into the abdomen. LIMITATIONS: None LOWER THORAX Unremarkable LIVER: Unremarkable GALLBLADDER: Cholecystectomy clips identified. BILE DUCTS: No dilatation SPLEEN: Unremarkable PANCREAS: Unremarkable ADRENAL GLANDS: Unremarkable KIDNEYS:focal renal scarring. No focal renal lesion. No nephrolithiasis or obstructive uropathy. AORTA: No abdominal aortic aneurysm identified. RETROPERITONEUM: No significant retroperitoneal abnormalities identified. MESENTERY:Unremarkable SMALL BOWEL: The small bowel loops are nondistended. Gastric bypass changes. APPENDIX: The appendix is not seen. No pericecal inflammatory changes identified. COLON: Distal colonic diverticulosis. URINARY BLADDER: Urinary bladder is unremarkable. REPRODUCTIVE SYSTEM: The uterus is absent. PNEUMOPERITONEUM: None PERITONEAL FLUID:None BONY STRUCTURES: Bilateral hip arthroplasties. Limited assessment of the pelvis secondary to streak artifact. Lumbar fixation hardware. ABDOMINAL WALL: Unremarkable CT/CT abdomen pelvis w con IMPRESSION: No acute findings. Distal colonic diverticulosis. Limited assessment of the inferior portion of the pelvis. Impression dictated by: Samir Tucker M.D.09/07/2023 1:48 PM Dictation Location: [place] [address] Transcribed By: [facility] 09/07/23 1348 Dictated By: Samir Tucker DO 09/07/23 1341 Signed By: 09/07/23 1348 Normal [facility] Calcium [Mass/volume] in Ser um or PlasmaOrdered By: PROVIDER TEMP on 09-07-2023 Calcium [Mass/Vol] 9.6 mg/dL 8.6-10.3 [facility] Carbon dioxide, total [Moles /volume] in Serum or PlasmaOrdered By: PROVIDER TEMP on 09-07-2023 CO2 [Moles/Vol] 29.9 mmol/L 21.0-31.0 [facility] Chloride [Moles/volume] in S rolando or PlasmaOrdered By: PROVIDER TEMP on 09-07-2023 Chloride [Moles/Vol] 105 mmol/L 98-[address] [facility] Color Auto (U)Ordered By: [place] OVIDER TEMP on 09-07-2023 Color (U) Dark yellow Yellow [facility] Complete Blood Count Auto Di ffon 09-07-2023 Basophils (Bld) [#/Vol] 0.0 10*3/uL Normal 0.0-0.2 [facility] Comment on above: Result Comment: PERF ORMED BY: [facility] [address] [place] [address] PATHOLOGIST FLUX TUBE ATTENDANT FRANK DUQUE M.D. Performed By: #### C MP, FIB-C, CBC, PT, PTT, ADDONUAPLUS, DDIMER, LIPASE ####[address] Basophils/100 WBC (Bld) 0.3 % Normal . [facility] Comment on above: Performed By: #### C MP, FIB-C, CBC, PT, PTT, ADDONUAPLUS, DDIMER, LIPASE ####[address] Eosinophils (Bld) [#/Vol] 0.2 10*3/uL Normal 0.0-0.45 [facility] Comment on above: Performed By: #### C MP, FIB-C, CBC, PT, PTT, ADDONUAPLUS, DDIMER, LIPASE ####[address] Eosinophils/100 WBC (Bld) 2.2 % Normal . [facility] Comment on above: Performed By: #### C MP, FIB-C, CBC, PT, PTT, ADDONUAPLUS, DDIMER, LIPASE ####[address] Erythrocyte distribution width (RBC) [Ratio] 14.7 % Normal 11.9-15.3 [facility] Comment on above: Performed By: #### C MP, FIB-C, CBC, PT, PTT, ADDONUAPLUS, DDIMER, LIPASE ####[address] Hematocrit (Bld) [Volume fraction] 41.7 % Normal 34.0-46.4 [facility] Comment on above: Performed By: #### C MP, FIB-C, CBC, PT, PTT, ADDONUAPLUS, DDIMER, LIPASE ####[address] Hemoglobin (Bld) [Mass/Vol] 13.4 g/dL Normal 11.8-15.4 [facility] Comment on above: Performed By: #### C MP, FIB-C, CBC, PT, PTT, ADDONUAPLUS, DDIMER, LIPASE ####[address] Lymphocytes (Bld) [#/Vol] 1.7 10*3/uL Normal 1.00-4.8 [facility] Comment on above: Performed By: #### C MP, FIB-C, CBC, PT, PTT, ADDONUAPLUS, DDIMER, LIPASE ####[address] Lymphocytes/100 WBC (Bld) 17.6 % Normal . [facility] Comment on above: Performed By: #### C MP, FIB-C, CBC, PT, PTT, ADDONUAPLUS, DDIMER, LIPASE ####[address] MCH (RBC) [Entitic mass] 30.0 pg Normal 24.7-34.3 [facility] Comment on above: Performed By: #### C MP, FIB-C, CBC, PT, PTT, ADDONUAPLUS, DDIMER, LIPASE ####[address] MCV (RBC) [Entitic vol] 93.3 fL Normal 80-100 [facility] Comment on above: Performed By: #### C MP, FIB-C, CBC, PT, PTT, ADDONUAPLUS, DDIMER, LIPASE ####[address] Mean Corpuscular HGB Conc 32.2 g/dL Normal 32.0-35.0 [facility] Comment on above: Performed By: #### C MP, FIB-C, CBC, PT, PTT, ADDONUAPLUS, DDIMER, LIPASE ####[address] Monocytes (Bld) [#/Vol] 0.9 10*3/uL High 0.0-0.8 [facility] Comment on above: Performed By: #### C MP, FIB-C, CBC, PT, PTT, ADDONUAPLUS, DDIMER, LIPASE ####[address] Monocytes/100 WBC (Bld) 17.82 % Normal 0.00-20.00 [facility] Comment on above: Performed By: #### C MP, FIB-C, CBC, PT, PTT, ADDONUAPLUS, DDIMER, LIPASE ####[address] Monocytes/100 WBC (Bld) 9.7 % Normal . [facility] Comment on above: Performed By: #### C MP, FIB-C, CBC, PT, PTT, ADDONUAPLUS, DDIMER, LIPASE ####[address] Neutrophils (Bld) [#/Vol] 6.9 10*3/uL Normal 1.8-7.7 [facility] Comment on above: Performed By: #### C MP, FIB-C, CBC, PT, PTT, ADDONUAPLUS, DDIMER, LIPASE ####[address] Neutrophils/100 WBC (Bld) 70.2 % Normal . [facility] Comment on above: Performed By: #### C MP, FIB-C, CBC, PT, PTT, ADDONUAPLUS, DDIMER, LIPASE ####[address] NRBC% 0.0 /100{WBC} Normal 0-0.5 [facility] Comment on above: Performed By: #### C MP, FIB-C, CBC, PT, PTT, ADDONUAPLUS, DDIMER, LIPASE ####[address] Platelet mean volume (Bld) [Entitic vol] 8.2 fL Normal 6.3-10.7 [facility] Comment on above: Performed By: #### C MP, FIB-C, CBC, PT, PTT, ADDONUAPLUS, DDIMER, LIPASE ####[address] Platelets (Bld) [#/Vol] 278 10*3/uL Normal 150-450 [facility] Comment on above: Performed By: #### C MP, FIB-C, CBC, PT, PTT, ADDONUAPLUS, DDIMER, LIPASE ####[address] RBC (Bld) [#/Vol] 4.47 10*6/uL Normal 3.60-5.00 [facility] Comment on above: Performed By: #### C MP, FIB-C, CBC, PT, PTT, ADDONUAPLUS, DDIMER, LIPASE ####[address] WBC (Bld) [#/Vol] 9.8 10*3/uL Normal 3.8-11.6 [facility] Comment on above: Performed By: #### C MP, FIB-C, CBC, PT, PTT, ADDONUAPLUS, DDIMER, LIPASE ####[facility] Comprehensive Metabolic Pane smith 09-07-2023 Albumin [Mass/Vol] 4.8 g/dL Normal 3.5-5.7 [facility] Comment on above: Performed By: #### C MP, FIB-C, CBC, PT, PTT, ADDONUAPLUS, DDIMER, LIPASE #### [address] Albumin/Globulin [Mass ratio] 2.0 {ratio} Normal [facility] Comment on above: Performed By: #### C MP, FIB-C, CBC, PT, PTT, ADDONUAPLUS, DDIMER, LIPASE #### [address] ALP [Catalytic activity/Vol] 59 U/L Normal 34-104 [facility] Comment on above: Performed By: #### C MP, FIB-C, CBC, PT, PTT, ADDONUAPLUS, DDIMER, LIPASE #### [address] ALT [Catalytic activity/Vol] 40 U/L Normal 7-52 [facility] Comment on above: Performed By: #### C MP, FIB-C, CBC, PT, PTT, ADDONUAPLUS, DDIMER, LIPASE #### [address] Anion gap [Moles/Vol] 8.7 mmol/L Normal 6.0-15.0 [facility] Comment on above: Performed By: #### C MP, FIB-C, CBC, PT, PTT, ADDONUAPLUS, DDIMER, LIPASE #### [address] AST [Catalytic activity/Vol] 34 U/L Normal 13-39 [facility] Comment on above: Performed By: #### C MP, FIB-C, CBC, PT, PTT, ADDONUAPLUS, DDIMER, LIPASE #### [address] Bilirubin [Mass/Vol] 0.4 mg/dL Normal 0.3-1.0 [facility] Comment on above: Performed By: #### C MP, FIB-C, CBC, PT, PTT, ADDONUAPLUS, DDIMER, LIPASE #### [address] Calcium [Mass/Vol] 9.6 mg/dL Normal 8.6-10.3 [facility] Comment on above: Performed By: #### C MP, FIB-C, CBC, PT, PTT, ADDONUAPLUS, DDIMER, LIPASE #### [address] Chloride [Moles/Vol] 105 mmol/L Normal 98-107 [facility] Comment on above: Performed By: #### C MP, FIB-C, CBC, PT, PTT, ADDONUAPLUS, DDIMER, LIPASE #### [address] CO2 [Moles/Vol] 29.9 mmol/L Normal 21.0-31.0 [facility] Comment on above: Performed By: #### C MP, FIB-C, CBC, PT, PTT, ADDONUAPLUS, DDIMER, LIPASE #### [address] Creatinine [Mass/Vol] 1.11 mg/dL Normal 0.60-1.20 [facility] Comment on above: Performed By: #### C MP, FIB-C, CBC, PT, PTT, ADDONUAPLUS, DDIMER, LIPASE #### [address] GFR/1.73 sq M.predicted MDRD (S/P/Bld) [Vol rate/Area] 54.142 mL/min/{1.73_m2} Normal [facility] Comment on above: Performed By: #### C MP, FIB-C, CBC, PT, PTT, ADDONUAPLUS, DDIMER, LIPASE #### [address] Globulin (S) [Mass/Vol] 2.4 g/dL Normal [facility] Comment on above: Performed By: #### C MP, FIB-C, CBC, PT, PTT, ADDONUAPLUS, DDIMER, LIPASE #### [address] Glucose [Mass/Vol] 92 mg/dL Normal 70-100 [facility] Comment on above: Result Comment: [facility] Glucose Reference Range is dependent on time and content of last meal. Glucose of more than 200 mg/dL in a nonstressed, ambulatory subject supports the diagnosis of Diabetes Mellitus. ADA recommended reference range Performed By: #### C MP, FIB-C, CBC, PT, PTT, ADDONUAPLUS, DDIMER, LIPASE #### [address] Potassium [Moles/Vol] 3.6 mmol/L Normal 3.5-5.1 [facility] Comment on above: Performed By: #### C MP, FIB-C, CBC, PT, PTT, ADDONUAPLUS, DDIMER, LIPASE #### [address] Protein [Mass/Vol] 7.2 g/dL Normal 6.4-8.9 [facility] Comment on above: Performed By: #### C MP, FIB-C, CBC, PT, PTT, ADDONUAPLUS, DDIMER, LIPASE #### [address] Sodium [Moles/Vol] 140 mmol/L Normal 136-145 [facility] Comment on above: Performed By: #### C MP, FIB-C, CBC, PT, PTT, ADDONUAPLUS, DDIMER, LIPASE #### [address] Urea nitrogen [Mass/Vol] 19 mg/dL Normal 7-25 [facility] Comment on above: Performed By: #### C MP, FIB-C, CBC, PT, PTT, ADDONUAPLUS, DDIMER, LIPASE #### [place] [address] [place] Creatinine [Mass/volume] in Serum or PlasmaOrdered By: PROVIDER TEMHugo on 09-07-2023 Creatinine [Mass/Vol] 1.11 mg/dL 0.60-1.20 [facility] D-Dimer High Sensitivityon 0 09-07-2023 D-Dimer High Sensitivity 247 ng/mL High 0-243 [facility] Comment on above: Result Comment: The reference range for D-dimer is <243 ng/mL D-dimer units. D-dimer results must be used in conjunction with a clinical pretest probability (PTP) assessment model for deep vein thrombosis (DVT) and pulmonary embolism (PE). Results <230 ng/mL d-dimer units can be used as a negative predictor in patients with low or moderate probability for DVT/PE. Results above the exclusion threshold of 230 ng/ml D-dimer units for DVT/PE may indicate the need for further diagnostic testing. D-Dimer can be increased in hospitalized patients due to co-morbid conditions. A hematocrit value greater than 55% may lead to inaccurate results in coagulation testing. Patients having hematocrit values >55% require a special collection tube for coagulation studies. Please contact the laboratory at [phone] for redraw instructions. PERFORMED BY: [facility] [address] [place] [address] PATHOLOGIST FLUX TUBE ATTENDANT FRANK DUQUE M.D. Performed By: #### C MP, FIB-C, CBC, PT, PTT, ADDONUAPLUS, DDIMER, LIPASE #### [facility] [address] Dipstick and Microscopicon 0 09-07-2023 Appearance (U) Clear Normal Clear [facility] Comment on above: Order Comment: Name Collection Type:: Clean-Voided Midstream Performed By: #### C MP, FIB-C, CBC, PT, PTT, ADDONUAPLUS, DDIMER, LIPASE ####[facility] [id number] Bacteria,Urine None Seen Normal None Seen [facility] Comment on above: Order Comment: Name Collection Type:: Clean-Voided Midstream Performed By: #### C MP, FIB-C, CBC, PT, PTT, ADDONUAPLUS, DDIMER, LIPASE ####[place] [id number] [place] [address] [facility] Bilirubin,Urine Negative Normal Negative [facility] Comment on above: Order Comment: Name Collection Type:: Clean-Voided Midstream Performed By: #### C MP, FIB-C, CBC, PT, PTT, ADDONUAPLUS, DDIMER, LIPASE ####[address] [address] [facility] Color (U) Dark Yellow Critically abnormal Yellow [facility] Comment on above: Order Comment: Name Collection Type:: Clean-Voided Midstream Performed By: #### C MP, FIB-C, CBC, PT, PTT, ADDONUAPLUS, DDIMER, LIPASE ####[place] [id number] [facility] Glucose Ql (U) Normal Normal Normal [facility] Comment on above: Order Comment: Name Collection Type:: Clean-Voided Midstream Performed By: #### C MP, FIB-C, CBC, PT, PTT, ADDONUAPLUS, DDIMER, LIPASE ####[place] [id number] [facility] Hyaline Casts,Urine 0-8 Normal 0-8 [facility] Comment on above: Order Comment: Name Collection Type:: Clean-Voided Midstream Result Comment: PERF ORMED BY: [facility] [address] [place] [address] PATHOLOGIST FLUX TUBE ATTENDANT FRANK DUQUE M.D. Performed By: #### C MP, FIB-C, CBC, PT, PTT, ADDONUAPLUS, DDIMER, LIPASE ####[place] [id number] [facility] Ketones Ql (U) Trace High Negative [facility] Comment on above: Order Comment: Name Collection Type:: Clean-Voided Midstream Performed By: #### C MP, FIB-C, CBC, PT, PTT, ADDONUAPLUS, DDIMER, LIPASE ####[place] [id number] [facility] Leukocyte esterase Test strip Ql (U) 1+ High Negative [facility] Comment on above: Order Comment: Name Collection Type:: Clean-Voided Midstream Performed By: #### C MP, FIB-C, CBC, PT, PTT, ADDONUAPLUS, DDIMER, LIPASE ####[address] Nitrite,Urine Negative Normal Negative [facility] Comment on above: Order Comment: Name Collection Type:: Clean-Voided Midstream Performed By: #### C MP, FIB-C, CBC, PT, PTT, ADDONUAPLUS, DDIMER, LIPASE ####[address] Occult Blood,Urine Negative Normal Negative [facility] Comment on above: Order Comment: Name Collection Type:: Clean-Voided Midstream Result Comment: PERF ORMED BY: [facility] [address] [place] [address] PATHOLOGIST FLUX TUBE ATTENDANT FRANK DUQUE M.D. Performed By: #### C MP, FIB-C, CBC, PT, PTT, ADDONUAPLUS, DDIMER, LIPASE ####[place] [id number] [facility] pH (U) 5.5 [pH] Normal 5.0-9.0 [facility] Comment on above: Order Comment: Name Collection Type:: Clean-Voided Midstream Performed By: #### C MP, FIB-C, CBC, PT, PTT, ADDONUAPLUS, DDIMER, LIPASE ####[place] [id number] [facility] Protein,Urine Trace High Negative [facility] Comment on above: Order Comment: Name Collection Type:: Clean-Voided Midstream Performed By: #### C MP, FIB-C, CBC, PT, PTT, ADDONUAPLUS, DDIMER, LIPASE ####[address] RBC,Urine 3-4 Normal 0-4 [facility] Comment on above: Order Comment: Name Collection Type:: Clean-Voided Midstream Performed By: #### C MP, FIB-C, CBC, PT, PTT, ADDONUAPLUS, DDIMER, LIPASE ####[address] Specificy [place],Urine 1.023 Normal 1.001-1.03 0 [facility] Comment on above: Order Comment: Name Collection Type:: Clean-Voided Midstream Performed By: #### C MP, FIB-C, CBC, PT, PTT, ADDONUAPLUS, DDIMER, LIPASE ####[address] Squamous Epithelial Cell,Urine 0-1 Normal 0-2 [facility] Comment on above: Order Comment: Name Collection Type:: Clean-Voided Midstream Performed By: #### C MP, FIB-C, CBC, PT, PTT, ADDONUAPLUS, DDIMER, LIPASE ####[address] Urobilinogen,Urine Normal Normal Normal [facility] Comment on above: Order Comment: Name Collection Type:: Clean-Voided Midstream Performed By: #### C MP, FIB-C, CBC, PT, PTT, ADDONUAPLUS, DDIMER, LIPASE ####[address] WBC,Urine 3-4 Normal 0-4 [facility] Comment on above: Order Comment: Name Collection Type:: Clean-Voided Midstream Performed By: #### C MP, FIB-C, CBC, PT, PTT, ADDONUAPLUS, DDIMER, LIPASE ####[address] Eosinophils Auto (Bld) [#/Vo l]Ordered By: PROVIDER TEMP on 09-07-2023 Eosinophils (Bld) [#/Vol] 0.2 10*3/uL 0.0-0.45 [facility] Eosinophils/100 WBC Auto (Bl d)Ordered By: PROVIDER TEMP on 09-07-2023 Eosinophils/100 WBC (Bld) 2.2 % . [facility] Erythrocyte distribution wid th Auto (RBC) [Ratio]Ordered By: PROVIDER TEMP on 09-07-2023 Erythrocyte distribution width (RBC) [Ratio] 14.7 % 11.9-15.3 [facility] Fibrin D-dimer [Presence] in Platelet poor plasma by Latex agglutinationOrdered By: PROVIDER TEMP on 09-07-2023 Fibrin D-dimer LA Ql (PPP) 247 ng/mL 0-243 [facility] Comment on above: The reference range for D-dimer is <243 ng/mL D-dimer units.D-dimer results must be used in conjunction with a clinicalpretest probability (PTP) assessment model for deep veinthrombosis (DVT) and pulmonary embolism (PE). Results <230ng/mL d-dimer units can be used as a negative predictor inpatients with low or moderate probability for DVT/PE.Results above the exclusion threshold of 230 ng/ml D-dimerunits for DVT/PE may indicate the need for furtherdiagnostic testing.D-Dimer can be increased in hospitalized patients due toco-morbid conditions.A hematocrit value greater than 55% may lead to inaccurate results in coagulation testing. Patients having hematocrit values >55% require a special collection tube for coagulation studies. Please contact the laboratory at [phone] for redraw instructions. Fibrinogenon 09-07-2023 Fibrinogen 377 mg/dL Normal 200-393 [facility] Comment on above: Result Comment: A he matocrit value greater than 55% may lead to inaccurate results in coagulation testing. Patients having hematocrit values >55% require a special collection tube for coagulation studies. Please contact the laboratory at [phone] for redraw instructions. Performed By: #### C MP, FIB-C, CBC, PT, PTT, ADDONUAPLUS, DDIMER, LIPASE #### [address] Fibrinogen [Mass/volume] in Platelet poor plasma by Coagulation assayOrdered By: PROVIDER TEMP on 09-07-2023 Fibrinogen Coag (PPP) [Mass/Vol] 377 mg/dL 200-393 [facility] Comment on above: A hematocrit value g reater than 55% may lead to inaccurate results in coagulation testing. Patients having hematocrit values >55% require a special collection tube for coagulation studies. Please contact the laboratory at [phone] for redraw instructions. Globulin Calc (S) [Mass/Vol] Ordered By: PROVIDER TEMP on 09-07-2023 Globulin (S) [Mass/Vol] 2.4 g/dL [facility] Glucose [Mass/volume] in Ser um or PlasmaOrdered By: PROVIDER TEMP on 09-07-2023 Glucose [Mass/Vol] 92 mg/dL 70-100 [facility] Comment on above: ADA recommended refe rence rangeRandom Glucose Reference Range is dependent on time and content of last meal. Glucose of more than 200 mg/dL in a nonstressed, ambulatory subject supports the diagnosis of Diabetes Mellitus. Hematocrit Auto (Bld) [Volum e fraction]Ordered By: PROVIDER TEMP on 09-07-2023 Hematocrit (Bld) [Volume fraction] 41.7 % 34.0-46.4 [facility] Hemoglobin [Mass/volume] in BloodOrdered By: PROVIDER TEMP on 09-07-2023 Hemoglobin (Bld) [Mass/Vol] 13.4 g/dL 11.8-15.4 [facility] INR in Platelet poor plasma by Coagulation assayOrdered By: PROVIDER TEMP on 09-07-2023 INR Coag (PPP) [Relative time] 1.0 {INR} [facility] Comment on above: INR Therapeutic Rang e A) Pre- and Peroperative OAT started two weeks before surgery. NOT HIP SURGERY: 1.5 - 2.5 HIP SURGERY: 2 - 3B) Primary and secondary prevention of venous THROMBOSIS: 2 - 3C) Active venous thrombosis, pulmonary embolismand prevention of recurrent venous thrombosis: 2 - 3D) Prevention of arterial thromboembolismincluding patients with mechanical heart valves: 3 - 4.5 Ketones Auto test strip (U) [Mass/Vol]Ordered By: PROVIDER TEMP on 09-07-2023 Ketones (U) [Mass/Vol] Trace Negative [facility] - UrinalysisOrder ed By: PROVIDER TEMP on 09-07-2023 Hyaline casts LM Ql (Urine sed) 0-8 [LPF] 0-8 [facility] Leukocytes [#/volume] correc anita for nucleated erythrocytes in Blood by Automated counOrdered By: PROVIDER TEMP on 09-07-2023 WBC corrected for nucl RBC Auto (Bld) [#/Vol] 9.8 10*3/uL 3.8-11.6 [facility] Lipaseon 09-07-2023 Lipase [Catalytic activity/Vol] 56.0 U/L Normal 11.0-82.0 [facility] Comment on above: Result Comment: PERF ORMED BY: [place] [address] PATHOLOGIST FLUX TUBE ATTENDANT FRANK DUQUE M.D. Performed By: #### C MP, FIB-C, CBC, PT, PTT, ADDONUAPLUS, DDIMER, LIPASE #### [facility] [address] Lipase [Enzymatic activity/v olume] in Serum or PlasmaOrdered By: PROVIDER TEMP on 09-07-2023 Lipase [Catalytic activity/Vol] 56.0 U/L 11.0-82.0 [facility] Lymphocytes Auto (Bld) [#/Vo l]Ordered By: PROVIDER TEMP on 09-07-2023 Lymphocytes (Bld) [#/Vol] 1.7 10*3/uL 1.00-4.8 [facility] Lymphocytes/100 WBC Auto (Bl d)Ordered By: PROVIDER TEMP on 09-07-2023 Lymphocytes/100 WBC (Bld) 17.6 % . [facility] MCH Auto (RBC) [Entitic mass ]Ordered By: PROVIDER TEMP on 09-07-2023 MCH (RBC) [Entitic mass] 30.0 pg 24.7-34.3 [facility] MCHC Auto (RBC) [Mass/Vol]Or dered By: PROVIDER TEMP on 09-07-2023 MCHC (RBC) [Mass/Vol] 32.2 g/dL 32.0-35.0 [facility] MCV Auto (RBC) [Entitic vol] Ordered By: PROVIDER TEMP on 09-07-2023 MCV (RBC) [Entitic vol] 93.3 fL 80-100 [facility] Monocyte distribution width [Entitic volume] in Blood by AutomatedOrdered By: PROVIDER TEMP on 09-07-2023 Monocyte distribution width Auto (Bld) [Entitic vol] 17.82 % 0.00-20.00 [facility] Monocytes Auto (Bld) [#/Vol] Ordered By: PROVIDER TEMP on 09-07-2023 Monocytes (Bld) [#/Vol] 0.9 10*3/uL 0.0-0.8 [facility] Monocytes/100 WBC Auto (Bld) Ordered By: PROVIDER TEMP on 09-07-2023 Monocytes/100 WBC (Bld) 9.7 % . [facility] Neutrophils Auto (Bld) [#/Vo l]Ordered By: PROVIDER TEMP on 09-07-2023 Neutrophils (Bld) [#/Vol] 6.9 10*3/uL 1.8-7.7 [facility] Neutrophils/100 WBC Auto (Bl d)Ordered By: PROVIDER TEMP on 09-07-2023 Neutrophils/100 WBC (Bld) 70.2 % . [facility] Nitrite Test strip Ql (U)Ord ered By: PROVIDER TEMP on 09-07-2023 Nitrite Ql (U) Negative Negative [facility] No Panel InformationOrdered By: PROVIDER TEMP on 09-07-2023 Estimated GFR (CKD-EPI) 54.142 mL/Min [facility] Creatinine Clearance (Chem N/A [facility] Nucleated erythrocytes [Pres ence] in Blood by Automated countOrdered By: PROVIDER TEMP on 09-07-2023 Nucleated RBC Auto Ql (Bld) 0.0 /100{WBC} 0-0.5 [facility] Partial Thromboplastin Timeo n 09-07-2023 aPTT Coag (Bld) [Time] 30.0 s Normal 25.1-36.5 [facility] Comment on above: Result Comment: A he matocrit value greater than 55% may lead to inaccurate results in coagulation testing. Patients having hematocrit values >55% require a special collection tube for coagulation studies. Please contact the laboratory at [phone] for redraw instructions. Performed By: #### C MP, FIB-C, CBC, PT, PTT, ADDONUAPLUS, DDIMER, LIPASE #### [facility] [address] [place] [address] Platelet mean volume Auto (B ld) [Entitic vol]Ordered By: PROVIDER TEMP on 09-07-2023 Platelet mean volume (Bld) [Entitic vol] 8.2 fL 6.3-10.7 [facility] Platelets Auto (Bld) [#/Vol] Ordered By: PROVIDER TEMP on 09-07-2023 Platelets (Bld) [#/Vol] 278 10*3/uL 150-450 [facility] Potassium [Moles/volume] in Serum or PlasmaOrdered By: PROVIDER TEMP on 09-07-2023 Potassium [Moles/Vol] 3.6 mmol/L 3.5-5.1 [facility] Protein Auto test strip (U) [Mass/Vol]Ordered By: PROVIDER TEMP on 09-07-2023 Protein (U) [Mass/Vol] Trace mg/dL Negative [facility] Protein [Mass/volume] in Ser um or PlasmaOrdered By: PROVIDER TEMP on 09-07-2023 Protein [Mass/Vol] 7.2 g/dL 6.4-8.9 [facility] Prothrombin Time INRon 09-06 INR Coag (PPP) [Relative time] 1.0 {INR} Normal [facility] Comment on above: Result Comment: INR Therapeutic Range A) Pre- and Peroperative OAT started two weeks before surgery. NOT HIP SURGERY: 1.5 - 2.5 HIP SURGERY: 2 - 3 B) Primary and secondary prevention of venous THROMBOSIS: 2 - 3 C) Active venous thrombosis, pulmonary embolism and prevention of recurrent venous thrombosis: 2 - 3 D) Prevention of arterial thromboembolism including patients with mechanical heart valves: 3 - 4.5 Performed By: #### C MP, FIB-C, CBC, PT, PTT, ADDONUAPLUS, DDIMER, LIPASE #### [facility] [address] PT Coag (PPP) [Time] 11.2 s Normal 9.0-12.9 [facility] Comment on above: Result Comment: A he matocrit value greater than 55% may lead to inaccurate results in coagulation testing. Patients having hematocrit values >55% require a special collection tube for coagulation studies. Please contact the laboratory at [phone] for redraw instructions. Performed By: #### C MP, FIB-C, CBC, PT, PTT, ADDONUAPLUS, DDIMER, LIPASE #### [facility] [address] [place] [id number] [facility] Prothrombin time (PT)Ordered By: PROVIDER TEMP on 09-07-2023 PT Coag (PPP) [Time] 11.2 s 9.0-12.[address] [facility] Comment on above: A hematocrit value g reater than 55% may lead to inaccurate results in coagulation testing. Patients having hematocrit values >55% require a special collection tube for coagulation studies. Please contact the laboratory at [phone] for redraw instructions. RBC Auto (Bld) [#/Vol]Ordere d By: PROVIDER TEMP on 09-07-2023 RBC (Bld) [#/Vol] 4.47 10*6/uL 3.60-5.00 [facility] Serum or plasma albumin/glob ulin mass ratioOrdered By: PROVIDER TEMP on 09-07-2023 Albumin/Globulin [Mass ratio] 2.0 {ratio} [facility] Serum or plasma anion gap de terminationOrdered By: PROVIDER TEMP on 09-07-2023 Anion gap [Moles/Vol] 8.7 mmol/L 6.0-15.0 [facility] Sodium [Moles/volume] in Ser um or PlasmaOrdered By: PROVIDER TEMP on 09-07-2023 Sodium [Moles/Vol] 140 mmol/L 136-145 [facility] Specific gravity Auto test s trip (U) [Rel density]Ordered By: PROVIDER TEMP on 09-07-2023 Specific gravity (U) [Rel density] 1.023 1.001-1.03 0 [facility] Squamous epithelial cells de tection in urine sediment by light microscopyOrdered By: PROVIDER TEMP on 09-07-2023 Epithelial cells.squamous LM Ql (Urine sed) 0-1 [HPF] 0-2 [facility] Urea nitrogen [Mass/volume] in Serum or PlasmaOrdered By: PROVIDER TEMP on 09-07-2023 Urea nitrogen [Mass/Vol] 19 mg/dL 7-25 [facility] Urine bacteria detection by automated methodOrdered By: PROVIDER TEMP on 09-07-2023 Bacteria Auto Ql (U) None seen None Seen [facility] Urine clarity by refractomet ry automatedOrdered By: PROVIDER TEMP on 09-07-2023 Clarity Refractometry automated (U) Clear Clear [facility] Urine glucose measurement by automated test strip (mass/volume)Ordered By: PROVIDER TEMP on 09-07-2023 Glucose Auto test strip (U) [Mass/Vol] Normal mg/dL Normal [facility] Urine hemoglobin detection b y automated test stripOrdered By: PROVIDER TEMP on 09-07-2023 Hemoglobin Auto test strip Ql (U) Negative Negative [facility] Urine leukocyte esterase det ection by automated test stripOrdered By: PROVIDER TEMP on 09-07-2023 Leukocyte esterase Auto test strip Ql (U) 1+ Negative [facility] Urobilinogen Auto test strip (U) [Mass/Vol]Ordered By: PROVIDER TEMP on 09-07-2023 Urobilinogen (U) [Mass/Vol] Normal mg/dL Normal [facility] WBC Auto (Bld) [#/Vol]Ordere d By: PROVIDER TEMP on 09-07-2023 WBC (Bld) [#/Vol] 9.8 10*3/uL 3.8-11.6 [facility] pH Auto test strip (U)Ordere d By: PROVIDER TEMP on 09-07-2023 pH (U) 5.5 [pH] 5.0-9.0 [facility] No Panel Informationon 07-29 ACINETOBACTER BAUMANII 0 NO [facility] ACINETOBACTER BAUMANII Not detected [facility] ACT, ADÁN, LEWIS, ACC GROUPS 0 PPM [facility] ACT, ADÁN, LEWIS, ACC GROUPS Not detected [facility] JUDI ALBICANS, PARAPSILOSIS, TROPICALIS 0 [facility] JUDI ALBICANS, PARAPSILOSIS, TROPICALIS Not detected [facility] JUDI GLABRATA 0 [facility] JUDI GLABRATA Not detected [facility] JUDI KRUSEI 0 [facility] JUDI KRUSEI Not detected [facility] CITROBACTER FREUNDII 0 [facility] CITROBACTER FREUNDII Not detected NO [facility] CTX-M1 (15), M2 (2), M9 (9), M8-25 GROUPS 0 PPM [facility] CTX-M1 (15), M2 (2), M9 (9), M8-25 GROUPS Not detected [facility] DFR (A1, A5), SUL (1,2) 0 PPM [facility] DFR (A1, A5), SUL (1,2) Not detected [facility] ENTEROBACTER AEROGENES, CLOACAE 0 [facility] ENTEROBACTER AEROGENES, CLOACAE Not detected [facility] ENTEROCOCCUS FAECALIS, FAECIUM 0 [facility] ENTEROCOCCUS FAECALIS, FAECIUM Not detected [facility] ERMB, C; MEFA 0 PPM [facility] ERMB, C; MEFA Not detected [facility] ESCHERICHIA COLI 25.381 Abnormal [facility] ESCHERICHIA COLI Detected Abnormal [facility] IMP, NDM, VIM GROUPS 0 PPM [facility] IMP, NDM, VIM GROUPS Not detected [facility] Interpretation and review of laboratory results Abnormal [facility] KLEBSIELLA PNEUMONIAE, OXYTOCA 0 [facility] KLEBSIELLA PNEUMONIAE, OXYTOCA Not detected [facility] MECA 0 PPM [facility] MECA Not detected [facility] MORGANELLA MORGANII 0 [facility] MORGANELLA MORGANII Not detected [facility] OXA-48, 51 0 PPM [facility] OXA-48, 51 Not detected [facility] PROTEUS MIRABILIS, VULGARIS 0 [facility] PROTEUS MIRABILIS, VULGARIS Not detected [facility] PSEUDOMONAS AERUGINOSA 0 [facility] PSEUDOMONAS AERUGINOSA Not detected [facility] QNR A1, A2, B2 0 PPM [facility] QNR A1, A2, B2 Not detected [facility] SERRATIA MARCESCENS 0 [facility] SERRATIA MARCESCENS Not detected [facility] SHV, KPC GROUPS 0 PPM [facility] SHV, KPC GROUPS Not detected [facility] STAPHYLOCOCCUS AUREUS 0 [facility] STAPHYLOCOCCUS AUREUS Not detected [facility] STAPHYLOCOCCUS EPIDERMIDIS, HAEMOLYTICUS, LUGDUNENSIS, SAPROPHYTICUS (URINA 0 [facility] STAPHYLOCOCCUS EPIDERMIDIS, HAEMOLYTICUS, LUGDUNENSIS, SAPROPHYTICUS (URINA Not detected [facility] STREPTOCOCCUS AGALACTIAE (GROUP B STREP) 0 [facility] STREPTOCOCCUS AGALACTIAE (GROUP B STREP) Not detected [facility] STREPTOCOCCUS PYOGENES (GROUP A STREP) 0 [facility] STREPTOCOCCUS PYOGENES (GROUP A STREP) Not detected [facility] TET B, TET M 0 PPM [facility] TET B, TET M Not detected [facility] Davina, VanB 0 PPM [facility] Davina, VanB Not detected [facility] Laboratory - Chemistry and C hemistry - challengeon 07-27-2023 Bilirubin Ql (U) Negative [facility] Glucose [Mass/Vol] Negative [facility] Ketones Ql (U) Negative [facility] pH (U) 6.0 [pH] [facility] Specific gravity (U) [Rel density] 1.015 [facility] Urobilinogen (U) [Mass/Vol] Negative [facility] Laboratory - Hematology and Cell countson 07-27-2023 Hemoglobin Ql (U) 3+ [facility] Laboratory - Urinalysison Nitrite Ql (U) Negative [facility] Protein Ql (U) 2+ [facility] No Panel Informationon 07-27 Interpretation and review of laboratory results Abnormal [facility] LEUKOCYTES 3+ [facility] CA holter monitor recordingo n 06-18-2023 CA holter monitor recording [facility] [place] [address] Holter Monitor Report Signed Patient: Ameena Bae MR#: [id number] : 1955 Acct:[id number] Age/Sex: 68 / F ADM Date: 06/14/23 Loc: Room: Type: [facility] Attending Dr: Yessenia WEAVER Copies to: GERMAN Lagunas MD Ordering Provider: Yessenia Palomares NP Date of Service: 06/14/23 CA/CA holter monitor recording: Palpitations, i63.21 ORDERING: MEG Lagunas CLINICAL INFORMATION: Palpitation. The patient underwent 24-hour Holter monitoring for complaints of palpitation. The following observations were made: 1. Rhythm is sinus with heart rates ranging between 49 and 121 beats per minute. The average heart rate is 77 beats per minute. The longest pause was 1.5 seconds. 2. There were 141 ventricular ectopic beats noted. These were isolated beats and there were no couplets or runs. 3. There were 50 supraventricular ectopic beats noted. They were predominantly isolated beats, although there was one 3-beat run of SVT at a rate of 140 beats per minute. 4. On one occasion, the patient complained of chest heaviness. Rhythm is sinus and there was an isolated PVC noted. Correlation is suggested. Transcribed By: FAMILIA 06/18/23 2690 Dictated By: Jovany Olea MD 06/18/23 1045 Signed By: 06/19/23 0953 Normal [facility] MM screening mammo BI w/CADo n 04-22-2023 MM screening mammo BI w/CAD [facility] [place] [address] [place] [address] Mammography Report Signed Patient: Ameena Bae MR#: [id number] : 1955 Acct:[id number] Age/Sex: 67 / F ADM Date: 04/22/23 Loc: [place] Room: Type: [facility] Attending Dr: Referral Self Copies to: Tamia France MD SELF,REFERRAL Ordering Provider: SELF,REFERRAL Date of Service: 04/22/23 MM/MM screening mammo BI w/CAD: SCREENING BILATERAL Screening Full Field digital mammogram with 3-D imaging. Full field digital CC and MLO imaging performed. CAD utilized. COMPARISON: 02/19/2022 HISTORY: Annual screening BREAST COMPOSITION: The breast is almost entirely fatty. BENIGN BREAST CALCIFICATIONS: Present VASCULAR CALCIFICATIONS: Present DEVELOPING ARCHITECTURAL DISTORTION: None DEVELOPING BREAST NODULE: None DEVELOPING MALIGNANT CALCIFICATIONS: None AXILLARY LYMPH NODES: Normal POSTSURGICAL CHANGES: None MM/MM screening mammo BI w/CAD IMPRESSION: No mammographic evidence of malignancy. Routine follow-up recommended in one year. RESULT CODE: 2 Benign Findings(s) DENSITY CODE: 1 (<25% glandular) FOLLOW UP: 1YR THE FALSE-NEGATIVE RATE OF MAMMOGRAPHY IS APPROXIMATELY 10%. IMAGING OF A PALPABLE ABNORMALITY MUST BE BASED ON CLINICAL GROUNDS. PATIENT WAS ENTERED INTO A REMINDER SYSTEM WITH A TARGET DUE DATE FOR THE NEXT MAMMOGRAM. Impression dictated by: Samir Tucker M.D.04/22/2023 12:52 PM Dictation Location: [facility] Transcribed By: [facility] 04/22/23 1252 Dictated By: Samir Tucker DO 04/22/23 1251 Signed By: 04/22/23 1252 Normal [facility] MR BRAIN W AND WO CONTRAST ( ROUTINE)on 04-09-2023 MR BRAIN W AND WO CONTRAST (ROUTINE) EXAM: MR BRAIN W AND WO CONTRAST (ROUTINE) History: Short episode of slurred speech and facial droop that resolved. Rule out CVA Technique: Multiplanar multisequence MRI of the brain was performed without and with contrast. Comparison: MRI of the brain September 12, 2021 Findings: There are multiple small foci of cortical diffusion restriction of the left posterior frontal lobe and left parietal lobe with associated parenchymal edema. There is thin linear hyperintense T1 signal and postcontrast enhancement within the cortex compatible with cortical laminar necrosis. Areas of hyperintense T2/FLAIR signal within the bilateral supratentorial white matter are nonspecific but are most likely due to chronic small vessel ischemic changes in a patient of this age. Prominence of the sulci and ventricles compatible with mild generalized parenchymal volume loss. No acute hemorrhage, enhancing mass, mass effect, midline shift, or abnormal extra-axial fluid collection. Midline structures are within normal limits. The posterior fossa is within normal limits. No susceptibility artifact is identified on the gradient echo sequence. The major intracranial vascular flow voids are maintained. Cranial nerves 7/8 complexes appear grossly unremarkable. The visualized paranasal sinuses and bilateral mastoid air cells are clear. IMPRESSION: Subacute to chronic ischemia within the posterior left frontal lobe and left parietal lobe. Generalized parenchymal volume loss and nonspecific white matter findings most compatible with chronic small vessel ischemic changes in a patient of this age. ELECTRONICALLY SIGNED BY: Tamia Donald, DO Normal Not Available Calciumon 03-03-2023 Calcium [Mass/Vol] 9.4 mg/dL Normal 8.6-10.3 [facility] Comment on above: Result Comment: PERF ORMED BY: [place] [address] PATHOLOGIST FLUX TUBE ATTENDANT FRANK DUQUE M.D. Performed By: #### C A #### [address] Calcium [Mass/volume] in Ser um or PlasmaOrdered By: Tamia France on 03-03-2023 Calcium [Mass/Vol] 9.4 mg/dL 8.6-10.3 [facility] CBC AUTO DIFFon 10-11-2022 BASO # 0.0 103/ul Normal 0.0-0.1 [facility] Comment on above: Performed By: #### V ITAB6 #### [facility] [address] [address] [address] Bobby Thibodeaux Basophils/100 WBC (Bld) 0.1 % Critically low 0.2-2.0 [facility] Comment on above: Performed By: #### V ITAB6 #### [facility] [address] [place] [address] Dr. Bobby Thibodeaux EO # 0.2 103/ul Normal 0.0-0.7 [facility] Comment on above: Performed By: #### V ITAB6 #### [facility] [address] [place] [address] Dr. Bobby Thibodeaux Eosinophils/100 WBC (Bld) 2.6 % Normal 0.9-7.0 [facility] Comment on above: Performed By: #### V ITAB6 #### [facility] [address] [place] [address] Dr. Bobby Thibodeaux Erythrocyte distribution width (RBC) [Ratio] 13.7 % Normal 11.0-15.0 [facility] Comment on above: Performed By: #### V ITAB6 #### [facility] [address] [place] [address] Dr. Bobby Thibodeaux Hematocrit (Bld) [Volume fraction] 42.2 % Normal 36.0-48.0 [facility] Comment on above: Performed By: #### V ITAB6 #### [facility] [address] [place] [address] Dr. Bobby Thibodeaux Hemoglobin (Bld) [Mass/Vol] 13.3 g/dL Normal 12.0-16.0 [facility] Comment on above: Performed By: #### V ITAB6 #### [facility] [address] [place] [address] Dr. Bobby Thibodeaux IG # 0.03 10e3/ul Normal 0.00-0.03 [facility] Comment on above: Performed By: #### V ITAB6 #### [facility] [address] [place] [address] Dr. Bobby Thibodeaux IG % 0.4 % Normal 0.0-0.5 [facility] Comment on above: Performed By: #### V ITAB6 #### [facility] [address] [place] [address] Dr. Bobby Thibodeaux LYMPH # 1.9 103/ul Normal 1.2-3.8 [facility] Comment on above: Performed By: #### V ITAB6 #### [facility] [address] [place] [address] Dr. Bobby Thibodeaux Lymphocytes/100 WBC (Bld) 26.5 % Normal 20.5-60.0 [facility] Comment on above: Performed By: #### V ITAB6 #### [facility] [address] [place] [address] Dr. Bobby Thibodeaux MANUAL DIFF REQ NO Normal [facility] Comment on above: Performed By: #### V ITAB6 #### [facility] [address] [place] [address] Dr. Bobby Thibodeaux MCH (RBC) [Entitic mass] 29.4 pg Normal 26.7-34.0 [facility] Comment on above: Performed By: #### V ITAB6 #### [facility] [address] [place] [address] Dr. Bobby Thibodeaux MCHC (RBC) [Mass/Vol] 31.5 g/dL Normal 29.9-35.2 [facility] Comment on above: Performed By: #### V ITAB6 #### [facility] [address] [place] [address] Dr. Bobby Thibodeaux MCV (RBC) [Entitic vol] 93.4 fL Normal 81.0-99.0 [facility] Comment on above: Performed By: #### V ITAB6 #### [facility] [address] [place] [address] Dr. Bobby Thibodeaux MONO # 0.6 103/ul Normal 0.3-0.8 [facility] Comment on above: Performed By: #### V ITAB6 #### [facility] [address] [place] [address] Dr. Bobby Thibodeaux Monocytes/100 WBC (Bld) 8.7 % Normal 1.7-12.0 [facility] Comment on above: Performed By: #### V ITAB6 #### [facility] [address] [address] [address] Bobby Thibodeaux NEUT # 4.3 103/ul Normal 1.4-6.5 [facility] Comment on above: Performed By: #### V ITAB6 #### [facility] [address] [place] [address] Dr. Bobby Thibodeaux Neutrophils/100 WBC (Bld) 61.7 % Normal 43.0-75.0 [facility] Comment on above: Performed By: #### V ITAB6 #### [facility] [address] [place] [address] Dr. Bobby Thibodeaux Platelet mean volume (Bld) [Entitic vol] 9.8 fL Normal 9.5-13.5 [facility] Comment on above: Performed By: #### V ITAB6 #### [facility] [address] [place] [address] Dr. Bobby Thbiodeaux PLT 277 103/ul Normal 150-450 [facility] [facility] Comment on above: Performed By: #### V ITAB6 #### [facility] [address] [place] [address] Dr. Bobby Thibodeaux RBC 4.52 106/ul Normal 4.20-5.40 [facility] Comment on above: Performed By: #### V ITAB6 #### [facility] [address] [place] [address] Dr. Bobby Thibodeaux WBC 7.0 103/ul Normal 4.0-11.0 [facility] Comment on above: Performed By: #### V ITAB6 #### [facility] [address] [place] [address] Dr. Bobby Thibodeaux CRPon 10-11-2022 CRP 0.4 mg/dL Normal <=1.0 [facility] Comment on above: Performed By: #### V ITAB6 #### [facility] [address] [place] [address] Dr. Bobby Thibodeaux PROF 14(COMP METB)on 023 Albumin [Mass/Vol] 3.5 g/dL Normal 3.4-5.0 [facility] Comment on above: Performed By: #### V ITAB6 #### [facility] [address] [address] [address] Bobby Thibodeaux Albumin/Globulin [Mass ratio] 1.0 {ratio} Normal [facility] Comment on above: Performed By: #### V ITAB6 #### [facility] [address] [address] [address] Bobby Thibodeaux ALP [Catalytic activity/Vol] 76 U/L Normal 46-116 [facility] Comment on above: Performed By: #### V ITAB6 #### [facility] [address] [address] [address] Bobby Thibodeaux ALT [Catalytic activity/Vol] 24 U/L Normal 14-59 [facility] Comment on above: Performed By: #### V ITAB6 #### [facility] [address] [place] [address] Dr. Bobby Thibodeaux Anion gap [Moles/Vol] 14.0 mmol/L Normal [facility] Comment on above: Performed By: #### V ITAB6 #### [facility] [address] [place] [address] Dr. Bobby Thibodeaux AST [Catalytic activity/Vol] 21 U/L Normal 15-37 [facility] Comment on above: Performed By: #### V ITAB6 #### [facility] [address] [address] [address] Bobby Thibodeaux Bilirubin [Mass/Vol] 0.3 mg/dL Normal 0.2-1.0 [facility] Comment on above: Performed By: #### V ITAB6 #### [facility] [address] [address] [address] Bobby Thibodeaux Calcium [Mass/Vol] 9.3 mg/dL Normal 8.5-10.1 [facility] Comment on above: Performed By: #### V ITAB6 #### [facility] [address] [address] [address] Bobby Thibodeaux Chloride [Moles/Vol] 107 mmol/L Normal 98-107 [facility] Comment on above: Performed By: #### V ITAB6 #### [facility] [address] [address] [address] Bobby Thibodeaux CO2 [Moles/Vol] 29.6 mmol/L Normal 21.0-32.0 [facility] Comment on above: Performed By: #### V ITAB6 #### [facility] [address] [address] [address] Bobby Thibodeaux Creatinine [Mass/Vol] 0.95 mg/dL Normal 0.55-1.02 [facility] Comment on above: Performed By: #### V ITAB6 #### [facility] [address] [address] [address] Bobby Thibodeaux EGFR-AF CYMRAES >60 Normal >=60 [facility] Comment on above: Performed By: #### V ITAB6 #### [facility] [address] [address] [address] Bobby Thibodeaux EGFR-NON AF CYMRAES 59 mL/min/1.73m2 Critically low >=60 [facility] Comment on above: Performed By: #### V ITAB6 #### [facility] [address] [address] [address] Bobby Thibodeaux Globulin (S) [Mass/Vol] 3.4 g/dL Normal [facility] Comment on above: Performed By: #### V ITAB6 #### [facility] [address] [address] [address] Bobby Thibodeaux Glucose [Mass/Vol] 87 mg/dL Normal 74-106 [facility] Comment on above: Performed By: #### V ITAB6 #### [facility] [address] [address] [address] Bobby Thibodeaux Potassium [Moles/Vol] 4.6 mmol/L Normal 3.5-5.1 [facility] Comment on above: Performed By: #### V ITAB6 #### [facility] [address] [place] [address] Dr. Bobby Thibodeaux Protein [Mass/Vol] 6.9 g/dL Normal 6.4-8.2 [facility] Comment on above: Performed By: #### V ITAB6 #### [facility] [address] [address] [address] Bobby Thibodeaux Sodium [Moles/Vol] 146 mmol/L Critically high 136-145 [facility] Comment on above: Performed By: #### V ITAB6 #### [facility] [address] [place] [address] Dr. Bobby Thibodeaux Urea nitrogen [Mass/Vol] 16.0 mg/dL Normal 7.0-18.0 [facility] Comment on above: Performed By: #### V ITAB6 #### [facility] [address] [place] [address] Dr. Bobby Thibodeaux Urea nitrogen/Creatinine [Mass ratio] 16.8 mg/mg Normal [facility] Comment on above: Performed By: #### V ITAB6 #### [facility] [address] [place] [address] Dr. Bobby Thibodeaux SED [facility] 2022 SED RATE 24 mm/hr Normal <=30 [facility] Comment on above: Performed By: #### S EDR #### [facility] [address] [place] [address] Dr. Bobby Thibodeaux HEMOGRAM AND PLATELon 2021 Hematocrit (Bld) [Volume fraction] 38.5 % Normal 36.0-48.0 [facility] Comment on above: Performed By: #### H H #### [facility] [address] [place] [address] Dr. Bobby Thibodeaux Hemoglobin (Bld) [Mass/Vol] 12.4 g/dL Normal 12.0-16.0 [facility] Comment on above: Performed By: #### H H #### [facility] [address] [place] [address] Dr. Bobby Thibodeaux MCH (RBC) [Entitic mass] 31.9 pg Normal 26.7-34.0 [facility] Comment on above: Performed By: #### H H #### [facility] [address] [place] [address] Dr. Bobby Thibodeaux MCHC (RBC) [Mass/Vol] 32.2 g/dL Normal 29.9-35.2 [facility] Comment on above: Performed By: #### H H #### [facility] [address] [address] [address] Bobby Thibodeaux MCV (RBC) [Entitic vol] 99.0 fL Normal 81.0-99.0 [facility] Comment on above: Performed By: #### H H #### [facility] [address] [address] [address] Bobby Thibodeaux PLT 290 103/ul Normal 150-450 [facility] Comment on above: Performed By: #### H H #### [facility] [address] [address] [address] Bobby Thibodeaux RBC 3.89 106/ul Critically low 4.20-5.40 [facility] Comment on above: Performed By: #### H H #### [facility] [address] [place] [address] Dr. Bobby Thibodeaux WBC 8.0 103/ul Normal 4.0-11.0 [facility] Comment on above: Performed By: #### H H #### [facility] [address] [place] [address] Dr. Bobby Thibodeaux VITAMIN D 25 OHon 06-05-2022 VIT D 25-OH 66.3 ng/mL Normal [facility] Comment on above: Performed By: #### V ITAB6 #### [facility] [address] [place] [address] Dr. Bobby Thibodeaux VIT D RANGES SEE BELOW Normal [facility] Comment on above: Result Comment: <20 ng/mL Vit D deficient 20 - <30 ng/mL Vit D insufficient 30 - 100 ng/mL Vit D sufficient >100 ng/mL Potential Toxicity Performed By: #### V ITAB6 #### [facility] [address] [place] [address] Dr. Bobby Thibodeaux ANDERSON BY IFA WITH REFLEXon Nuclear Ab IF (S) [Titer] Negative Normal Negative [facility] Comment on above: Order Comment: Speci men Type: BLOOD SPECIMEN Ordering Facility: [facility] Address: [address] [place] [place] [phone] Result Comment: Anti -nuclear antibody test is used as an aid in diagnosis of systemic autoimmune diseases. Where positive and clinically warranted, follow-up using disease-specific testing is recommended. Low positive titers are not uncommon with advanced age, certain chronic infections, and malignancies among others. Test methodology: Indirect fluorescence immunoassay (IFA) using HEp-2 cells. Performed By: #### A NAIFR #### [facility] CLIA [id number] [address] [place], [place] [id number] [facility] CNOVon 02-26-2022 CNOV Office Visit ([facility] ) -- AMEENA BAE ([id number]) 1955 F Date Time Provider Department 02/26/22 8:00 AM JOSUÉ WOLFE During your visit today, we recorded the following information about you: Pulse Blood pressure Weight 66/minute 142/78 74.4 kg Josué Wolfe MD 02/27/2022 7:53 AM Signed Rheumatology CONSULTATION Referring Provider: Tamia France MD Date of Service: 02/26/2022 Gender: female Ethnicity: White Age: [age] year old Chief Complaint: New Patient and PMR (Second Opinion) Last Rheumatology visit: None at [facility] Ameena Bae is a 66 year old White female who presents on 02/26/2022 for in person visit for evaluation of New Patient and PMR (Second Opinion). Onset of symptoms began 2017. Ameena is RF negative - 9 (02/26/2022). There are no rheumatoid nodules present. She does not have any joint swelling. She reports morning stiffness and that it lasts for about 60 minutes . Morning stiffness Duration 02/26/2022 Minutes 60 HISTORY OF PRESENT ILLNESS NEW CONSULT February 26, 2022 Second Opinion Mrs. Bae is a very nice 66 y.o. lady seen at the request of her PCP for Second Opinion on PMR She is accompanied by her spouse Trevor Patient is under the care of an outside Energy Auditor, Dr. Canelo Villarreal in [place]; States they are seeking second opinion and is concerned as is still on prednisone, going into 5th yr and still on the prednisone and because of that has had to be on Prolia for osteoporosis. States her PCP recommended she sees me. She was diagnosed with Polymyalgia Rheumatica by her outside Energy Auditor. States he also told her that it could possibly be some rheumatoid starting She has history of osteoarthroses multiple jts, s/p rt THR from advanced, bone on bone osteoarthroses, DDD and spinal stenosis. Reports has spinal stenosis, and sometimes gets LE/calf pains after walking, describes pseudoclaudication Onset: little over 4 yrs ago States were camping, could not sit or lay down, shoulders were hurting, and left the camp Denies infections or tick or insect bite Saw her PCP who diagnosed her with Polymyalgia Rheumatica and referred to Rheumatology Main symptoms: shoulders across and the deltoids, back from hips up, hip pains, groin and lateral aspect, describing pelvic girdle. States had labs, and inflammation markers were elevated. I do not have records of that. 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 Pain was same with mvt and activity Denies jt swelling Am stiffness was all day Currently reports: Hips pain and states many times feels pain/ache in hands and shoulders, still notices, but is tolerable States has noticed soreness in the MCP's and PIP's, b/l, sometimes if doing too much feels it in wrists Does not report episodes of ulnar styloid involvement Denies current headaches, vision loss or blindness or scalp tenderness. Denies jaw tongue or limb claudication. Reports that rest is better than use and mvt of jts, of all, shoulders, back, hips, hands/wrists Am stiffness: yes, about an hour , back and states the hands and wrists resolve within half an hour Jt swelling: none Denies neck pains Reports chronic LB pains, sees Spine Surgeon and Pain Mgt. She is s/p spine surgery for scoliosis, L2-5 States will be having RFA for her back 03/26/2022 States her surgeon told her to avoid another surgery Denies having had PT Denies having had for the back Has not had x-rays of her shoulders Treatment to date : prednisone 3 mg daily (tapered on Friday), prior to that was on 4 mg daily States started on 40 mg daily and tapered over the yrs; When tapers to 2-3 mg daily, would flare. So she tapers by alternating (4 mg every other day with 3 mg for example, before taper from 4 to 3 mg) When flares dose is incr to 10 mg daily for 3-4 wks then tapers from there. Has been on prednisone since 2018; States she feels her current taper has been working methotrexate 25 mg/wk (every Fri), oral: I don't really feel different with it and denies benefit to jt pains, stiffness or with helping her taper the pred better. States has been on methotrexate for about 3 yrs Takes folic acid daily Reports well tolerate Denies any infections Giant Cell Arteritis ROS: States had on rt upper side, pointing to upper evangelical, about 6-8 months ago and her special needs nanny increased her dose to 10 mg daily and then tapered again. States the MUNOZ's resolve with incr pred dose. Has not had anymore MUNOZ's. States her eye would water at the time; reported pain pressure behind her eye; States saw her housing management representative and was told he did not see any concerning findings. States was gwendolyn (more content not included)... Normal [facility] CRP SerPl-mCncon 02-26-2022 CRP [Mass/Vol] mg/L Normal <0.9 [facility] Comment on above: Order Comment: Michael paul Type: BLOOD SPECIMEN Ordering Facility: [facility] Address: [address] [place] [phone] Performed By: #### 1 157-5, 1987-10 #### [facility] CLIA [id number] [address] [place] [address] [place] Cyclic citrullinated peptide IgG Qnon 02-26-2022 CCP ANTIBODY IGG QUALITATIVE Negative Normal Negative [facility] Comment on above: Order Comment: Michael paul Type: BLOOD SPECIMEN Ordering Facility: [facility] Address: [address] [place] [address] Performed By: #### 3 3935-8 #### [facility] CLIA [id number] [address] [place] [address] [place] ESR Westergren method (Bld) [Velocity]on 02-26-2022 ESR (Bld) [Velocity] 5 mm/h Normal 0-20 [facility] Comment on above: Order Comment: Speci men Type: BLOOD SPECIMENOrdering Facility: [facility] Address: [address] [place] [address] Performed By: #### 4 537-7 ####[facility] [id number] [place] [address] [place] HBV core Ab Ser Qlon 022 HBV core Ab Ql (S) Negative Normal Negative [facility] Comment on above: Order Comment: Speci men Type: BLOOD SPECIMEN Ordering Facility: [facility] Address: [address] [place] [address] Result Comment: No e vidence of current or past infection with Hepatitis B virus. Should recent infection be suspected, repeat testing may be considered 3-4 weeks after this draw. Performed By: #### 2 2322-2, 55632-1, 50804-8 #### [facility] CLIA [id number] [address] [place] [address] [place] HBV surface Ab IA Ql (S)on 0 02-26-2022 HBV surface Ag Ql (S) Negative Normal Negative [facility] Comment on above: Order Comment: Speci men Type: BLOOD SPECIMEN Ordering Facility: [facility] Address: [address] [place] [address] Performed By: #### 2 2322-2, 09021-2, 29979-8 #### [facility] CLIA [id number] [address] [place] [address] [place] HBV surface Ab Ser Qlon 02-14 HBV surface Ab Ql (S) Negative Normal Negative [facility] Comment on above: Order Comment: Michael paul Type: BLOOD SPECIMEN Ordering Facility: [facility] Address: [address] [place] [address] Result Comment: No e vidence of antibodies to Hepatitis B surface antigen. Performed By: #### 2 2322-2, 71448-7, 20642-9 #### [facility] CLIA [id number] [address] [place] [address] [place] HCV Ab Ser Qlon 02-26-2022 HCV Ab Ql (S) Negative Normal Negative [facility] Comment on above: Order Comment: Michael paul Type: BLOOD SPECIMENOrdering Facility: [facility] Address: [address] [place] [address] Result Comment: The result suggests no evidence of active infection with Hepatitis C virus. Should recent infection be suspected, repeat testing may be considered 4-6 weeks after this draw. Performed By: #### 1 6128-1 ####[facility] [id number] [address] [place] No Panel Informationon 02-26 [facility] Rheumatoid fact SerPl-aCncon 02-26-2022 Rheumatoid factor Qn [IU]/mL Normal <16 [facility] Comment on above: Order Comment: Michael paul Type: BLOOD SPECIMEN Ordering Facility: [facility] Address: [address] [place] [address] Performed By: #### 1 1572-5, 1987-10 #### [facility] CLIA [id number] [address] [place] [address] [place] XR HAND 3V PA/LAT/OBL BILon 02-26-2022 XR HAND 3V PA/LAT/OBL TERESO * * *Final Report* * * DATE OF EXAM: Feb 26 2022 10:47AM LNX [id number] - XR HAND 3V PA/LAT/OBL TERESO / PROCEDURE REASON: multiple diagnoses * * * * Physician Interpretation * * * * EXAMINATION: XR HAND 3V PA/LAT/OBL TERESO HISTORY: Chronic bilateral hand pain. No trauma. history of arthritis Bilateral hand pain Bilateral hand pain . TECHNIQUE: XR HAND 3V PA/LAT/OBL TERESO Laterality: BILATERAL Number of different views (projections): 3 each M: XB_1 COMPARISON: None RESULT: Left: No acute fracture. No dislocation. Mild degenerative changes with sclerosis and small osteophytes most pronounced at the first CMC joint and radiocarpal articulation. No bony erosions. Right: No acute fracture. No dislocation. Mild degenerative changes most pronounced at the first CMC joint and radiocarpal articulation with sclerosis and small osteophytes. No bony erosions. IMPRESSION: No acute radiographic findings. Mild degenerative changes, as described. Nuclear Medicine Officer: [facility] Transcribe Date/Time: Feb 27 2022 10:03A Dictated by : JOHN CHÁVEZ MD This examination was interpreted and the report reviewed and electronically signed by: JOHN CHÁVEZ MD on Feb 27 2022 10:04AM EST [id number] Normal [place] XR SHOULDER 2V AP/TRUE AP LT on 02-26-2022 XR SHOULDER 2V AP/TRUE AP LT * * *Final Report* * * DATE OF EXAM: Feb 26 2022 10:47AM [id number] [id number] - XR SHOULDER 2V AP/TRUE AP LT / PROCEDURE REASON: multiple diagnoses * * * * Physician Interpretation * * * * EXAMINATION: XR SHOULDER 2V AP/TRUE AP LT, XR SHOULDER 2V AP/TRUE AP RT HISTORY: Chronic Left shoulder pain. No trauma. history of arthritis (accession [id number]), Chronic Right shoulder pain. No trauma. history of arthritis (accession [id number]) PMR (polymyalgia rheumatica) (HCC) Pain of both shoulder joints Pain of both shoulder joints . TECHNIQUE: XR SHOULDER 2V AP/TRUE AP LT, XR SHOULDER 2V AP/TRUE AP RT Laterality: LEFT (accession [id number]), RIGHT (accession [id number]) Number of different views (projections): 3 (accession [id number]), 2 (accession [id number]) M: XB_1 COMPARISON: None RESULT: Left: No acute fracture. No dislocation. Moderate degenerative change present with sclerosis and small osteophytes involving the glenohumeral joint space and AC joint. No bony erosions. Right: No acute fracture. No dislocation. Moderate degenerative change present with sclerosis and small osteophytes involving the glenohumeral joint space and AC joint. No bony erosions. IMPRESSION: No acute radiographic findings. Moderate degenerative changes. Nuclear Medicine Officer: RIMMA Transcribe Date/Time: Feb 27 2022 10:05A Dictated by : JOHN CHÁVEZ MD This examination was interpreted and the report reviewed and electronically signed by: JOHN CHÁVEZ MD on Feb 27 2022 10:06AM EST [id number] Normal [place] XR SHOULDER 2V AP/TRUE AP RT on 02-26-2022 XR SHOULDER 2V AP/TRUE AP RT * * *Final Report* * * DATE OF EXAM: Feb 26 2022 10:47AM LNX [id number] - XR SHOULDER 2V AP/TRUE AP RT / PROCEDURE REASON: multiple diagnoses * * * * Physician Interpretation * * * * EXAMINATION: XR SHOULDER 2V AP/TRUE AP LT, XR SHOULDER 2V AP/TRUE AP RT HISTORY: Chronic Left shoulder pain. No trauma. history of arthritis (accession [id number]), Chronic Right shoulder pain. No trauma. history of arthritis (accession [id number]) PMR (polymyalgia rheumatica) ([facility]) Pain of both shoulder joints Pain of both shoulder joints . TECHNIQUE: XR SHOULDER 2V AP/TRUE AP LT, XR SHOULDER 2V AP/TRUE AP RT Laterality: LEFT (accession [id number]), RIGHT (accession [id number]) Number of different views (projections): 3 (accession [id number]), 2 (accession [id number]) M: XB_1 COMPARISON: None RESULT: Left: No acute fracture. No dislocation. Moderate degenerative change present with sclerosis and small osteophytes involving the glenohumeral joint space and AC joint. No bony erosions. Right: No acute fracture. No dislocation. Moderate degenerative change present with sclerosis and small osteophytes involving the glenohumeral joint space and AC joint. No bony erosions. IMPRESSION: No acute radiographic findings. Moderate degenerative changes. Nuclear Medicine Officer: [facility] Transcribe Date/Time: Feb 27 2022 10:05A Dictated by : JOHN CHÁVEZ MD This examination was interpreted and the report reviewed and electronically signed by: JOHN CHÁVEZ MD on Feb 27 2022 10:06AM EST [id number] Normal [place] cCP IgG SerPl-aCncon 022 Cyclic citrullinated peptide IgG Qn <15 Normal <20 [place] Comment on above: Order Comment: Speci men Type: BLOOD SPECIMEN Ordering Facility: [facility] Address: [address] [place] [address] Performed By: #### 3 3935-8 #### [facility] CLIA [id number] [address] [place] [address] [facility] VITAMIN B1 (THIAMINE)on 12-15 Vit. B1, Whole Blood 144.4 nmol/L Normal 66.5-200.0 [facility] Comment on above: Performed By: #### V ITAB6 #### [facility] [address] [place] [address] Dr. Bobby Thibodeaux VITAMIN B6on 01-01-2022 Vitamin B6 10.5 ug/L Normal 3.4-65.2 [facility] Comment on above: Result Comment: Defi ciency: <3.4 Marginal: 3.4 - 5.1 Adequate: >5.1 Performed By: #### V ITAB6 #### [facility] [address] [place] [address] Dr. Bobby Thibodeaux CBC AUTO DIFFon 12-28-2021 BASO # 0.0 103/ul Normal 0.0-0.1 [facility] Comment on above: Performed By: #### C BC #### [facility] [address] [place] [address] Dr. Bobby Thibodeaux Basophils/100 WBC (Bld) 0.3 % Normal 0.2-2.0 [facility] Comment on above: Performed By: #### C BC #### [facility] [address] [place] [address] Dr. Bobby Thibodeaux EO # 0.2 103/ul Normal 0.0-0.7 [facility] Comment on above: Performed By: #### C BC #### [facility] [address] [place] [address] Dr. Bobby Thibodeaux Eosinophils/100 WBC (Bld) 2.8 % Normal 0.9-7.0 [facility] Comment on above: Performed By: #### C BC #### [facility] [address] [place] [address] Dr. Bobby Thibodeaux Erythrocyte distribution width (RBC) [Ratio] 14.0 % Normal 11.0-15.0 [facility] Comment on above: Performed By: #### C BC #### [facility] [address] [place] [address] Dr. Bobby Thibodeaux Hematocrit (Bld) [Volume fraction] 38.6 % Normal 36.0-48.0 [facility] Comment on above: Performed By: #### C BC #### [facility] [address] [place] [address] Dr. Bobby Thibodeaux Hemoglobin (Bld) [Mass/Vol] 12.5 g/dL Normal 12.0-16.0 [facility] Comment on above: Performed By: #### C BC #### [facility] [address] [place] [address] Dr. Bobby Thibodeaux IG # 0.05 10e3/ul Critically high 0.00-0.03 [facility] Comment on above: Performed By: #### C BC #### [facility] [address] [place] [address] Dr. Bobby Thibodeaux IG % 0.7 % Critically high 0.0-0.5 [facility] Comment on above: Performed By: #### C BC #### [facility] [address] [place] [address] Dr. Bobby Thibodeaux LYMPH # 1.6 103/ul Normal 1.2-3.8 [facility] Comment on above: Performed By: #### C BC #### [facility] [address] [place] [address] Dr. Bobby Thibodeaux Lymphocytes/100 WBC (Bld) 22.2 % Normal 20.5-60.0 [facility] Comment on above: Performed By: #### C BC #### [facility] [address] [place] [address] Dr. Bobby Thibodeaux MANUAL DIFF REQ NO Normal [facility] Comment on above: Performed By: #### C BC #### [facility] [address] [place] [address] Dr. Bobby Thibodeaux MCH (RBC) [Entitic mass] 32.0 pg Normal 26.7-34.0 [facility] Comment on above: Performed By: #### C BC #### [facility] [address] [place] [address] Dr. Bobby Thibodeaux MCHC (RBC) [Mass/Vol] 32.4 g/dL Normal 29.9-35.2 [facility] Comment on above: Performed By: #### C BC #### [facility] [address] [place] [address] Dr. Bobby Thibodeaux MCV (RBC) [Entitic vol] 98.7 fL Normal 81.0-99.0 [facility] Comment on above: Performed By: #### C BC #### [facility] [address] [place] [address] Dr. Bobby Thibodeaux MONO # 0.6 103/ul Normal 0.3-0.8 [facility] Comment on above: Performed By: #### C BC #### [facility] [address] [place] [address] Dr. Bobby Thibodeaux Monocytes/100 WBC (Bld) 8.3 % Normal 1.7-12.0 [facility] Comment on above: Performed By: #### C BC #### [facility] [address] [place] [address] Dr. Bobby Thibodeaux NEUT # 4.7 103/ul Normal 1.4-6.5 [facility] Comment on above: Performed By: #### C BC #### [facility] [address] [place] [address] Dr. Bobby Thibodeaux Neutrophils/100 WBC (Bld) 65.7 % Normal 43.0-75.0 [facility] Comment on above: Performed By: #### C BC #### [facility] [address] [place] [address] Dr. Bobby Thibodeaux Platelet mean volume (Bld) [Entitic vol] 9.6 fL Normal 9.5-13.5 [facility] Comment on above: Performed By: #### C BC #### [facility] [address] [place] [address] Dr. Bobby Thibodeaux PLT 243 103/ul Normal 150-450 [facility] Comment on above: Performed By: #### C BC #### [facility] [address] [place] [address] Dr. Bobby Thibodeaux RBC 3.91 106/ul Critically low 4.20-5.40 [facility] Comment on above: Performed By: #### C BC #### [facility] [address] [place] [address] Dr. Bobby Thibodeaux WBC 7.2 103/ul Normal 4.0-11.0 [facility] Comment on above: Performed By: #### C BC #### [facility] [address] [place] [address] Dr. Bobby Thibodeaux FERRITINon 12-28-2021 Ferritin [Mass/Vol] 115.0 ng/mL Normal 8.0-252.0 [facility] Comment on above: Performed By: #### V ITAD, FERR, FETIBC, B12FOL #### [facility] [address] [place] [address] Dr. Bobby Thibodeaux IRON AND TIBCon 12-28-2021 % SATURATION 30.2 % Normal [facility] Comment on above: Performed By: #### V ITAD, FERR, FETIBC, B12FOL #### [facility] [address] [place] [address] Dr. Bobby Thibodeaux Iron [Mass/Vol] 78.0 ug/dL Normal 50.0-170.0 [facility] Comment on above: Performed By: #### V ITAD, FERR, FETIBC, B12FOL #### [facility] [address] [place] [address] Dr. Bobby Thibodeaux TIBC DIRECT 258.0 ug/dL Normal 250.0-450. 0 [facility] Comment on above: Performed By: #### V ITAD, FERR, FETIBC, B12FOL #### [facility] [address] [address] [address] Bobby Thibodeaux LIPID PROFILEon 12-28-2021 CHOL-HDL RATIO NORM SEE BELOW Normal [facility] Comment on above: Result Comment: 3.3 - 4.4 LOW RISK 4.4 - 7.1 AVERAGE RISK 7.1 - 11.0 MODERATE RISK >11.0 HIGH RISK Performed By: #### C MP, LIPID #### [facility] [address] [address] [address] Bobby Thibodeaux Cholesterol [Mass/Vol] 190 mg/dL Normal <=200 [facility] Comment on above: Performed By: #### C MP, LIPID #### [facility] [address] [address] [address] Bobby Thibodeaux Cholesterol in HDL [Mass/Vol] 71 mg/dL Critically high 40-60 [facility] Comment on above: Performed By: #### C MP, LIPID #### [facility] [address] [address] [address] Bobby Thibodeaux Cholesterol in LDL [Mass/Vol] 98.0 mg/dL Normal [facility] Comment on above: Performed By: #### C MP, LIPID #### [facility] [address] [address] [address] Bobby Thibodeaux Cholesterol.total/Chol esterol in HDL [Mass ratio] 2.7 {ratio} Normal [facility] Comment on above: Performed By: #### C MP, LIPID #### [facility] [address] [address] [address] Bobby Thibodeaux HDL NORMAL > or = 60 mg/dl - LO W CARDIOVASCULAR RISK <40 mg/dl - HIGH CARDIOVASCULAR RISK Normal [facility] Comment on above: Performed By: #### C MP, LIPID #### [facility] [address] [address] [address] Bobby Thibodeaux LDL CALC NORMAL SEE BELOW Normal [facility] Comment on above: Result Comment: <100 mg/dl OPTIMAL 100 - 129 mg/dl NEAR OR ABOVE OPTIMAL 130 - 159 mg/dl BORDERLINE HIGH 160 - 189 mg/dl HIGH >190 mg/dl VERY HIGH Performed By: #### C MP, LIPID #### [facility] [address] [place] [address] Dr. Bobby Thibodeaux Triglyceride [Mass/Vol] 105 mg/dL Normal <=150 [facility] Comment on above: Performed By: #### C MP, LIPID #### [facility] [address] [place] [address] Dr. Bobby Thibodeaux VLDL CALC 21.0 mg/dL Normal [facility] Comment on above: Performed By: #### C MP, LIPID #### [facility] [address] [place] [address] Dr. Bobby Thibodeaux PROF 14(COMP METB)on 022 Albumin [Mass/Vol] 3.5 g/dL Normal 3.4-5.0 [facility] Comment on above: Performed By: #### C MP, LIPID #### [facility] [address] [place] [address] Dr. Bobby Thibodeaux Albumin/Globulin [Mass ratio] 1.2 {ratio} Normal [facility] Comment on above: Performed By: #### C MP, LIPID #### [facility] [address] [place] [address] Dr. Bobby Thibodeaux ALP [Catalytic activity/Vol] 57 U/L Normal 46-116 [facility] Comment on above: Performed By: #### C MP, LIPID #### [facility] [address] [place] [address] Dr. Bobby Thibodeaux ALT [Catalytic activity/Vol] 39 U/L Normal 14-59 [facility] Comment on above: Performed By: #### C MP, LIPID #### [facility] [address] [place] [address] Dr. Bobby Thibodeaux Anion gap [Moles/Vol] 10.9 mmol/L Normal [facility] Comment on above: Performed By: #### C MP, LIPID #### [facility] [address] [place] [address] Dr. Bobby Thibodeaux AST [Catalytic activity/Vol] 33 U/L Normal 15-37 [facility] Comment on above: Performed By: #### C MP, LIPID #### [facility] [address] [place] [address] Dr. Bobby Thibodeaux Bilirubin [Mass/Vol] 0.5 mg/dL Normal 0.2-1.0 [facility] Comment on above: Performed By: #### C MP, LIPID #### [facility] [address] [place] [address] Dr. Bobby Thibodeaux Calcium [Mass/Vol] 8.9 mg/dL Normal 8.5-10.1 [facility] Comment on above: Performed By: #### C MP, LIPID #### [facility] [address] [place] [address] Dr. Bobby Thibodeaux Chloride [Moles/Vol] 107 mmol/L Normal 98-107 [facility] Comment on above: Performed By: #### C MP, LIPID #### [facility] [address] [place] [address] Dr. Bobby Thibodeaux CO2 [Moles/Vol] 30.0 mmol/L Normal 21.0-32.0 [facility] Comment on above: Performed By: #### C MP, LIPID #### [facility] [address] [place] [address] Dr. Bobby Thibodeaux Creatinine [Mass/Vol] 1.02 mg/dL Normal 0.55-1.02 [facility] Comment on above: Performed By: #### C MP, LIPID #### [facility] [address] [place] [address] Dr. Bobby Thibodeaux EGFR-AF CYMRAES >60 Normal >=60 [facility] Comment on above: Performed By: #### C MP, LIPID #### [facility] [address] [place] [address] Dr. Bobby Thibodeaux EGFR-NON AF CYMRAES 54 mL/min/1.73m2 Critically low >=60 [facility] Comment on above: Performed By: #### C MP, LIPID #### [facility] [address] [place] [address] Dr. Bobby Thibodeaux Globulin (S) [Mass/Vol] 2.9 g/dL Normal [facility] Comment on above: Performed By: #### C MP, LIPID #### [facility] [address] [address] [address] Bobby Thibodeaux Glucose [Mass/Vol] 83 mg/dL Normal 74-106 [facility] Comment on above: Performed By: #### C MP, LIPID #### [facility] [address] [place] [address] Dr. Bobby Thibodeaux Potassium [Moles/Vol] 3.9 mmol/L Normal 3.5-5.1 [facility] Comment on above: Performed By: #### C MP, LIPID #### [facility] [address] [place] [address] Dr. Bobby Thibodeaux Protein [Mass/Vol] 6.4 g/dL Normal 6.4-8.2 [facility] Comment on above: Performed By: #### C MP, LIPID #### [facility] [address] [place] [address] Dr. Bobby Thibodeaux Sodium [Moles/Vol] 144 mmol/L Normal 136-145 [facility] Comment on above: Performed By: #### C MP, LIPID #### [facility] [address] [place] [address] Dr. Bobby Thibodeaux Urea nitrogen [Mass/Vol] 20.0 mg/dL Critically high 7.0-18.0 [facility] Comment on above: Performed By: #### C MP, LIPID #### [facility] [address] [place] [address] Dr. Bobby Thibodeaux Urea nitrogen/Creatinine [Mass ratio] 19.6 mg/mg Normal [facility] Comment on above: Performed By: #### C MP, LIPID #### [facility] [address] [place] [address] Dr. Bobby Thibodeaux VIT B12 AND FOLATEon 022 Cobalamin (Vitamin B12) [Mass/Vol] 1137.0 pg/mL Critically high 193.0-986. 0 [facility] Comment on above: Performed By: #### V ITAD, FERR, FETIBC, B12FOL #### [facility] [address] [place], [place] [address] Dr. Bobby Thibodeaux FOLATE 25.80 ng/mL Normal 8.60-58.90 [facility] Comment on above: Performed By: #### V ITAD, FERR, FETIBC, B12FOL #### [facility] [address] [place], [place] [address] Dr. Bobby Thibodeaux VITAMIN D 25 OHon 12-28-2021 VIT D 25-OH 77.4 ng/mL Normal [facility] Comment on above: Performed By: #### V ITAD, FERR, FETIBC, B12FOL #### [facility] [address] [place], [place] [address] Dr. Bobby Thibodeaux VIT D RANGES SEE BELOW Normal [facility] Comment on above: Result Comment: <20 ng/mL Vit D deficient 20 - <30 ng/mL Vit D insufficient 30 - 100 ng/mL Vit D sufficient >100 ng/mL Potential Toxicity Performed By: #### V ITAD, FERR, FETIBC, B12FOL #### [facility] [address] [place], [place] [address] Dr. Bobby Thibodeaux MRI Wrist w/o Righton 2021 MRI Wrist w/o Right HISTORY: Fall with w rist pain. Technique: Routine MRI of the right wrist Comparison: Radiographs 07/23/2021 RESULT: Bone Marrow: There is no evidence of fracture, bone bruise or osteonecrosis. Ligaments: The scapholunate ligament and lunotriquetral ligament appear to be intact. Triangular Fibrocartilage: Degenerative central perforations, otherwise appears intact. Cartilage: Mild degenerative changes with scattered tiny osteophytes. Scattered tiny cysts. Tendons: Increase fluid within the second extensor compartment, consistent with tenosynovitis. Visualized tendons appear intact. Nerves: The visualized portions of the median and ulnar nerves appear to be within normal limits. Joint Fluid and Synovium: There is a physiological quantity of joint fluid. No evidence of synovitis. Other: No other significant abnormality. IMPRESSION: No evidence for fracture. Tenosynovitis involving the second extensor compartment. Mild osteoarthritis. Report reported and signed by Carlos Floyd on 08/09/2021 1404 Normal [facility] [employer] Consent for COVID Vaccineon 06-01-2021 SARS-CoV-2 (COVID-19) RNA HUBER+probe Ql (Unsp spec) [id number]:127 Normal [facility] Consent for Treatmenton 05-16 Consent for Treatment [id number]#[id number]:127 Normal [facility] Coding Summary.on 04-25-2021 Coding Summary. CD:[id number] Gh0bWw +PGhlYWQ+DP4KDQKxN50jrJHam Y4SG2yBBD5PMEAOLLUBOF2JPU5 pnSE3QOkdZ8JlbnQf ArlzdNOcAX17ZWa7JUO9bLmzQL fqoU9xgNJqI9h6MtKmMO06aW66 HZmwHUYzGmJ9EnLxvekbrHFs G5saSeGmaICbCqy+PHRhYmxlIH dvRWAxCZptDKPhUfWztOtqDI2a Ft1hVVNlZRDtvHutmXOzDxGa a4viVMStIBqqLA2ebQfwV0KtnG C1EBKpp7t3Wy87fKR+PHRkIHN0 cUqnDOkaa672ZlNkv0kpTUN0 vAGeHOwcNCY8M72pq1T5GMDfES UbUYT9rGA4xE2toCutzwmkG9Wn bBPmWpM5SAN7wHHxgT5zkFfc qzkcwD5oSre+P55TRF7SDQUFIC 3VCxs9N8OnTtkryFU+EH32CRIw QB15wNIsvAKwe3jtjWp3AeTi ZFYnLRF0iPtqMPkit9ZyAIByL7 0ldXGsy9C6RUXoeGfohEEqRjXs jRQ8mL5xIDjncatpl5yuyqyf Nvswx3nsfz08bQ12U19nVJaeYD SlLPQ1ITDnLPXtrPirrk5kcO0f Ii8+JElyb2brs3alqYu6SjUg PZQrkyWewVxtZSB1w9TgSz36Y0 AzzKemx6KmAcy0gh65cTOxl8L0 jBG4QNdzCGGemG5oWOecJfH6 KKIlYuXayG64kLBnKIyfIq7wxA gwyVcxRW0oAKNqouzzJRDvzG7y TIOodOYqbVchUV8zMHWhdkwj u448QgKaXIM1OGBnpNJuA0LnmE 5cPpRiSXKnUUHnU3JqaNBlWMvv L775WUupNnW6BWCjolVzY6Ww IPWffZtkXzO1o9F9Nq6Xk9Qcup emGLG1VTygWONeExQxCsYvQzU4 J5GeThi3WQXhdYyeTZ8wE0Io CNZijebozmowgRX0BLItWNGwsV 15sXLaFOvmSp5kz9U5g630ASBe HTXrrS66Dj2erIxrNSGqbKWC oZ2iwpipg8cvlobkDeOdAVDfVF c4ZRt4ZYRtbQtzTkXzDAF6LqA1 KJU7xUSrzW9ywSpaurnevE1u Oyc+E22cmZ1vZHD3BDX5gynpID GysnZrDC06MG56U9JsZprbcVIm bGU+FRUqykIfkBljPC0nSgCk g3uhz4FsZHtnY9TuNEYeRZdnIb o6ERHvAFT0yYB1eX5rTTUfFWaa s6M4dBX7N4JdhyPzdw6ps1ze GQJtRAdnL35aoLCeq8E9MVZafE Z4SCVtyFmvEbRcfS53Mtd+PGNv eZndd5NbWeymu8jqw9tdjKh6 FdRhCWTkfbTjwQaaHWG9e3LyYv 89H80kMZrrOQEmNSXmIAJfRRPg dAwhud9uhT2gYl2+PGNvbCB3 oTE7iU9cVOXpDeA8ZMikQ130Dj HmiXWtByuuh0xby0ncsMt3OoXv LVBosxLiwGjwVBK4j0GxQh90 S84uEVtfYIDrSZLnRURkGDYzvE vxcc1mmD8tYr6+JQ2xo4glaj86 kE95bGC+WYAgQHH1rXvtKQxn IARyhN4oSMimRqI5MZNePvChsU 97sYXmSYsgVi5eoQldgAgkZP7g GWVhhmhga463ToZmt0tmFQFg mATcIDruMQZ3P13nd9G2UCFnTP FeRKM3mYA9pW9irGjnwcogmYGh lTzxvvEylFdkWHduQEeaA848 IHRvcDsnPlBhdGllbnQgTmFtZT b8P7NwRmg7VRUwiJsnLL1siINv ATgkVh4flMzjcZvzXR7vVZUn rasxn110AdVvo8xcGLQswAQcDK hwDUO9N81cw2R9GKZqBQLfQMH0 lHB0oO4fgFtzvocghPYrzNcl fuXcaInlBZbrWWxgQ293TFGwzB xfZxHqebUjCMVdrUG9ZY95KU49 aDIhh3A9mQG0D9CtBNZzvgqv pwzaiFY4WNHjWCQyzM19Xg5owA awBw8rCBUuWYG5XWBjnAYgP0Zz hE1zDpQgQPZdWTSmG1ItaQXn TXmaD222SYhdPgO5TTNoueTiO2 IbMNKweWwjBgP4x7H1Jy7YP5E2 YF80HG22gBMhb7J1aYI3G3Oz XTThpevservugQU5LQXaHQSklA 71Pi0yjSfgRq9oDEBrZKK9SCRj uOVkJ6RehW1mDoXoPCAvFTWd S2HocJKlXArmL186IKugEsW9KB HrbcErH8TfBPOvbRvuVsH7s0R4 Iz6JXRz8XU95NU76nHYaa0U1 fJO4Z9KuMPQqhobuhlnujAP7YQ MwDUKpzK57Yz6izMsjEq0eKEJu PDJ1LELvqVVyX2CkyF6tTzVn LGViJIKkV9AakQYvRBajX420IK ptNpF0AXUqwcNtO7ApMYZstDqk MhY0c7C5Pe5GJHGmPK37XHF4 dST8BP86IP61W3FjHyqxwGFqgS U+PHRhYmxlIHdpZHRoPScxMDAl CpQsxXhnWV6bJt3qNYYqZEKn qBlinTKiNhDlv2tuNDQxWHnfOV 3cnHduP1QpcQJ8JZPhz7r7Ms50 T08wO0HonWV+FAHyjFE9yBM0 iO2rRmGsSlR2GQypZ597MkVyvI XqKkdtv4haz8thcMu6FmO6TFIc rfDzvGzkQNC2f6WzSz88O98g IHdpZHRoPSIxNSUiIHZhbGlnbj 1taO4eLa4+ZQJcgZG4lCF8vC8o AwNvUpK8EEtmQ425TmZmcJRd Fwuum0pgr7fofRk2FoVzJIQywk NcuScrIUG7y4BlXh80B7YygOvp b9NqBzf0vu73mWSyy5T7fPY4 K4VkVKMrwduxiIDrpNcmPP2hDG PkifanYHNjkU8dMPLbG8e6DaXy EuJ4APlwX9TsrrX3QIJgcCIj GBxcDJX0A22ta8J1DVTgWIDyLZ F4dFR0jO1agKwcnhxpnALjhFgu scCkjNimJBmwHAixK714TOBp fHidXYLquS4gDDNhjGUlkEqjJG 4wNTBpbjsnPkhBTUFOTiwgTUFS MFhEDtVVYO44JE03wSSbd4I3 jAM6M2EvZNIgpopqpyrdgZI2QV GhAXDjzV37eVEbPMqyGe4qe5I8 i030KYPwKNVenK19Nx4siAmt PGFexVZEjG5cwokhv9mcarqvPu KfIBWkNNy6LGh6CFFpwMseLaFp HIN9NrO6HAW2kRKftS5piKfe kklwlS8jQxi+AVHeQmqoTPw7FB wvdGQ+PLCyPYM2eYgvGGmnFFCw bC2lIKAjS0u9UmLjZyI6MKgq I3TqCECueawzDf65oF9xPxKjQw V6PSbuT6KpeoS7ALTfzDTlICei RCL4F64lz3Q2GLYjRHRsNFA6 pSX0qY1mlUtmppumiYMeyEdvej SgpVwnCPjuIHwaN356NYOgcJht YeF8WJjlXJMuGB43FJ99tZVo h5L2mYJ8F0XaGKLslunugymzpQ W5DKBcOVYnsG65eVAsVInzFp7a c1R3c388RGLhFBZlvR69Vl0c xZcqMDLhkZAAuY7hhzyou3aqug pzDlToEWOsJGq0UOb1HZVvpOld ZqCwDXD4EgF6QYK6cQZseS6d cGacexbrlT2uOsr+RmVtYWxlPC 29QT50tCWnj8M7wOX6H2GrPKRl evfuizyovGW5SYEqACRdmJ80 bSQxEJfxVn8ad1K8w579DRWxON SyfE92Sm8kjIetQLSmmBZOmR9s qbyru8zrnmffDtAcJMTwXIv7 NFj2GCLvbQgfJePgSGE0PkF8UJ R4hJWskM1ydPjgweyuxJ9bMcr+ ShLdjZUvcW6lNJ36LM13X3Oj PjwvdGFibGU+PHRhYmxlIHdpZH NhMQdxTEQuPdEepGoyRY4zRr8o ZLPkTTTgvLmqsXZoQqItd3di BZBrCXyiQC5iqMjiI7FhiAJ3EN Pvj3q9Dw38I50fJ4SixLH+PGNv oID3tHJ0xC1aNkYcUcP1SAlz J816TlDrbEZlRuaea7xbd7mepC g1ZpKdXXEqadHwkEvkRVX4i4Lo Yc24G87nTRrsMUWxRBZwAXGn VLOttJbaxc0knX2jSy5+PGNvbC I8yTN1oG3gPmLcJlP0CComX382 LoEfsFIxQsvnZ43pD9HzoKJ+ IODpBqi3ZKZxsKleIT8rpUBmNT zyQo9vZRN9NbCuVjEoBLciH2Nt RCVrtxtlktgwqEL9GMDgNRNk uG80Yn0drIwcIv2lVXKlCJZ9VW RosPMiV9SunM0mAaKfIDKzCIJw W5HqqBTmHAwoA004QOijJmT3 DQDqbfNmS4RnCZVyeRszMzF6q2 D7Tv1AoGygiJEmQS7dWiZwSFn9 Q5EcGpk7BGWayDdoZO0fkXRc TKdmSp0pkRbdmNpcCH5vCQOpdb rpi193LrIfl0geASGrzJFfVPrj RFI3K36sa3R4CETcGENrGZR9 bFE0qU4clIooxatykJXhpGdrum RtiKurKGoePJbpN990LCYkyDlp GcYOAba8L0YnSlb3BDXkdXuv FQ3kuVUwTBncTr6joKjtzUziXJ 0bWMOpzrzjf076ErWxs6zlAAMn eZXvXWncKZV5G82xl1P3OVMl IVVqPSD2fSN3dN5cdSpndaieeO KmmReckzRfoLzcEYxdLJfwU925 PIAjtKyjWc6PYuk1O4HgNbe0 CGJmxWlnXV0pfYIoGJuzYs8icY tkrGwdGX4vLVIyunuys096ZgTc l7lkWOCptLYvYIyvLBT1Z78l k8X9DWGsEXAoNLQ3kRP2hN8orA lnbjogbGVmdDsgdmVydGljYWwt MTjuZ150HCBnqZpxJyDooFJr OjwvdGQ+ZM63ft86R2BgXjhqSj q3OOOwMUF1pIW3fK1gHUFtDIfu i9Y4nMV2L0HiqbJfog8hc9ia YXBz (more content not included)... Normal [facility] Vital Signs Date Time Vital Sign Value Performing Clinician Facility 10-07-2023 08:38-0400 Diastolic blood pressure 52 mm[Hg] MD Tamia France Work Phone: [facility] 10-07-2023 08:38-0400 Heart rate 74 /min MD Tamia France Work Phone: [facility] 10-07-2023 08:38-0400 Respiratory rate 18 /min MD Tamia France Work Phone: [facility] 10-07-2023 08:38-0400 SaO2% (BldA) [Mass fraction] 98 % MD Tamia France Work Phone: [facility] 10-07-2023 08:38-0400 Systolic blood pressure 116 mm[Hg] MD Tamia France Work Phone: [facility] 10-07-2023 07:47-0400 Inhaled oxygen flow rate 3 L/min MD Tamia France Work Phone: [facility] 10-07-2023 07:07-0400 Body height 162.56 cm MD Tamia France Work Phone: [facility] 10-07-2023 07:07-0400 Body weight 0.15 kg MD Tamia France Work Phone: [facility] 09-10-2023 13:47-0400 Diastolic blood pressure 70 mm[Hg] MD Tamia France Work Phone: [facility] 09-10-2023 13:47-0400 Heart rate 92 /min MD Tamia France Work Phone: [facility] 09-10-2023 13:47-0400 Systolic blood pressure 144 mm[Hg] MD Tamia France Work Phone: [facility] 07-27-2023 12:09-0500 Body mass index (BMI) [Ratio] 27.12 kg/m2 George Tesmiranda SONG Work Phone: [facility] 07-27-2023 12:09-0500 Body temperature 97.5 [degF] George Hogue DO Work Phone: [facility] 07-27-2023 12:09-0500 Body weight 71.67 kg Georgemary Hogue DO Work Phone: [facility] 07-27-2023 12:09-0500 Diastolic blood pressure 80 mm[Hg] George Hogue DO Work Phone: [facility] 07-27-2023 12:09-0500 Heart rate 97 /min George Hogue DO Work Phone: [facility] 07-27-2023 12:09-0500 SaO2% (BldA) [Mass fraction] 99 % George Tesmiranda Work Phone: [facility] 07-27-2023 12:09-0500 Systolic blood pressure 116 mm[Hg] George Estellemiranda SONG Work Phone: [facility] 03-18-2023 10:36-0400 Diastolic blood pressure 64 mm[Hg] MD Tamia France Work Phone: [facility] 03-18-2023 10:36-0400 Heart rate 68 /min MD Tamia France Work Phone: [facility] 03-18-2023 10:36-0400 Respiratory rate 16 /min MD Tamia France Work Phone: [facility] 03-18-2023 10:36-0400 SaO2% (BldA) [Mass fraction] 97 % MD Tamia France Work Phone: [facility] 03-18-2023 10:36-0400 Systolic blood pressure 132 mm[Hg] MD Tamia France Work Phone: [facility] 03-18-2023 09:56-0400 Inhaled oxygen flow rate 3 L/min MD Tamia France Work Phone: [facility] 03-18-2023 09:31-0400 Body height 162.56 cm MD Tamia France Work Phone: [facility] 03-18-2023 09:31-0400 Body weight 72.12 kg MD Tamia France Work Phone: [facility] 03-12-2023 13:34-0400 Diastolic blood pressure 87 mm[Hg] MD Tamia France Work Phone: [facility] 03-12-2023 13:34-0400 Heart rate 65 /min MD Tamia France Work Phone: [facility] 03-12-2023 13:34-0400 Systolic blood pressure 144 mm[Hg] MD Tamia France Work Phone: [facility] 01-02-2023 10:45-0400 Body height 162.56 cm Jorge Luis Enriquez Other [facility] Other 01-02-2023 10:45-0400 Body mass index (BMI) [Ratio] 27.12 kg/m2 Jorge Luis Enriquez Other [facility] Other 01-02-2023 10:45-0400 Body weight 71.67 kg Jorge Luis Enriquez Other [facility] Other 04-09-2022 08:30-0400 Diastolic blood pressure 65 mm[Hg] MD Tamia France Work Phone: [facility] 04-09-2022 08:30-0400 Heart rate 78 /min MD Tamia France Work Phone: [facility] 04-09-2022 08:30-0400 Respiratory rate 16 /min MD Tamia France Work Phone: [facility] 04-09-2022 08:30-0400 SaO2% (BldA) [Mass fraction] 98 % MD Tamia France Work Phone: [facility] 04-09-2022 08:30-0400 Systolic blood pressure 111 mm[Hg] MD Tamia France Work Phone: [facility] 04-09-2022 07:44-0400 Inhaled oxygen flow rate 3 L/min MD Tamia France Work Phone: [facility] 04-09-2022 06:44-0400 Body height 162.56 cm MD Tamia France Work Phone: [facility] 04-09-2022 06:44-0400 Body weight 72.12 kg MD Tamia France Work Phone: [facility] 03-26-2022 08:20-0400 Diastolic blood pressure 78 mm[Hg] MD Tamia France Work Phone: [facility] 03-26-2022 08:20-0400 Heart rate 76 /min MD Tamia France Work Phone: [facility] 03-26-2022 08:20-0400 Respiratory rate 16 /min MD Tamia France Work Phone: [facility] 03-26-2022 08:20-0400 SaO2% (BldA) [Mass fraction] 96 % MD aTmia France Work Phone: [facility] 03-26-2022 08:20-0400 Systolic blood pressure 125 mm[Hg] MD Tamia France Work Phone: [facility] 03-26-2022 07:40-0400 Inhaled oxygen flow rate 3 L/min MD Tamia France Work Phone: [facility] 03-26-2022 06:49-0400 Body height 162.56 cm MD Tamia France Work Phone: [facility] 03-26-2022 06:49-0400 Body weight 72.57 kg MD Tamia France Work Phone: [facility] 11-06-2021 14:00-0400 Body height 162.56 cm Jorge Luis Horaner Other [facility] Other 11-06-2021 14:00-0400 Body mass index (BMI) [Ratio] 26.43 kg/m2 Jorge Luis Felter Other [facility] Other 11-06-2021 14:00-0400 Body weight 69.85 kg Jorge Luis Felter Other [facility] Other 05-28-2021 11:15-0500 Body height 162.56 cm Jorge Luis Felter Other [facility] Other 05-28-2021 11:15-0500 Body mass index (BMI) [Ratio] 27.8 kg/m2 Jorge Luis Felter Other [facility] Other 05-28-2021 11:15-0500 Body weight 73.48 kg Jorge Luis Felter Other [facility] Other Encounters Encounter Date Encounter Type Care Provider Facility Start: 10-22-2023 End: 10-22-2023 ambulatory TAMIA FRANCE Not Available Start: 10-07-2023 End: 10-07-2023 ambulatory Jorge Luis Enriquez Facility:[facility] Start: 10-07-2023 Non-patient / Non-visit MD Tamia France Work Phone: [facility] Work Phone: Start: 10-07-2023 End: 10-07-2023 Admission to same day surgery center MD Tamia France Work Phone: [facility] Work Phone: Start: 10-07-2023 End: 10-07-2023 ambulatory MD Tamia France Work Phone: [facility] Work Phone: Start: 10-06-2023 End: 10-06-2023 ambulatory RADHA Barrera BAUER Not Available Start: 09-16-2023 End: 09-16-2023 ambulatory RHONDA MESAREID Not Available Start: 09-11-2023 End: 09-11-2023 ambulatory MD Tamia France Work Phone: [facility] Work Phone: Start: 09-11-2023 End: 09-11-2023 Patient encounter procedure MD Tamia France Work Phone: [facility] Work Phone: Start: 09-10-2023 ambulatory Tamia France Facility:[facility] Start: 09-10-2023 Registered Recurring MD Tamia France Work Phone: [facility]-Infusion Therapy - O/P Work Phone: Start: 09-07-2023 End: 09-07-2023 Emergency department patient visit Gomez Hannah Facility:[facility] Start: 09-07-2023 End: 09-07-2023 Emergency department patient visit MD Tamia France Work Phone: [facility]-Emergency Room Work Phone: Start: 08-02-2023 End: 08-02-2023 ambulatory JUDD ROSS Not Available Start: 07-27-2023 Bamboo flowsheet George jean DO Work Phone: [facility] Start: 07-27-2023 Bamboo flowsheet George jean DO Work Phone: [facility] Start: 07-27-2023 End: 07-27-2023 ambulatory EGORGE HOGUE Not Available Start: 07-27-2023 End: 07-27-2023 Office outpatient visit 25 minutes George Hogue DO Work Phone: [facility] Comment on above: Acute cystitis with hematuria (Primary Dx); Dysuria Start: 07-09-2023 End: 07-09-2023 ambulatory TAMIA FRANCE Not Available Start: 07-03-2023 End: 07-03-2023 ambulatory RADHA SAPP Not Available Start: 06-14-2023 End: 06-14-2023 ambulatory Yessenia Risaliti Facility:[facility] Start: 06-14-2023 End: 06-14-2023 ambulatory MD Tamia France Work Phone: [facility] Work Phone: Start: 06-14-2023 End: 06-14-2023 Patient encounter procedure MD Tamia France Work Phone: [facility]Electrodiagnostics Work Phone: Start: 06-03-2023 End: 06-03-2023 ambulatory TAMIA FRANCE Not Available Start: 05-21-2023 End: 05-21-2023 ambulatory ABDULLAHI REED Not Available Start: 05-19-2023 End: 05-19-2023 ambulatory BETI RUELAS Not Available Start: 05-13-2023 End: 05-13-2023 ambulatory DUY REILLY Not Available Start: 05-12-2023 End: 05-12-2023 ambulatory BETI RUELAS [facility] Other Start: 05-12-2023 Telephone encounter Jorge Luis [facility] [place] Start: 05-05-2023 End: 05-05-2023 ambulatory SATHISH SHIELDS Not Available Start: 05-01-2023 End: 05-01-2023 ambulatory COLTEN REED Not Available Start: 04-29-2023 End: 04-29-2023 ambulatory COLTEN REED Not Available Start: 04-28-2023 End: 04-28-2023 ambulatory BETI RUELAS Not Available Start: 04-22-2023 End: 04-22-2023 ambulatory Referral Self Facility:[facility] Start: 04-22-2023 End: 04-22-2023 ambulatory MD Tamia France Work Phone: [facility] Work Phone: Start: 04-22-2023 End: 04-22-2023 Patient encounter procedure MD Tamia France Work Phone: [facility] Work Phone: Start: 04-01-2023 End: 04-01-2023 ambulatory Jorge Luis Enriquez Other [facility] Other Start: 04-01-2023 Office outpatient visit 15 minutes Jorge Luis Enriquez [facility] [place] Start: 03-18-2023 (Procedure) Short Jorge Luis Enriquez [facility] Start: 03-18-2023 End: 03-18-2023 ambulatory Jorge Luis Enriquez Facility:[facility] Start: 03-18-2023 End: 03-18-2023 Admission to same day surgery center MD Tamia France Work Phone: [facility] Work Phone: Start: 03-18-2023 End: 03-18-2023 ambulatory MD Tamia France Work Phone: [facility] Work Phone: Start: 03-12-2023 Registered Recurring MD Tamia France Work Phone: [facility]Infusion Therapy - [facility] Work Phone: Start: 03-10-2023 End: 03-10-2023 ambulatory Jorge Luis Enriquez Other [facility] Other Start: 03-10-2023 Office outpatient visit 25 minutes Jorge Luis Enriquez [facility] [place] Start: 03-03-2023 End: 03-03-2023 ambulatory Tamia France Facility:[facility] Start: 03-03-2023 End: 03-03-2023 ambulatory MD Tamia France Work Phone: [facility] Work Phone: Start: 03-03-2023 End: 03-03-2023 Patient encounter procedure MD Tamia France Work Phone: [facility] [place] Work Phone: Start: 01-02-2023 End: 01-02-2023 ambulatory Jorge Luis Enriquez Other [facility] Other Start: 01-02-2023 Office outpatient visit 15 minutes Jorge Luis Enriquez [facility] [place] Start: 10-11-2022 End: 10-12-[address] TAMIA FRANCE Facility:[facility] Start: 06-05-2022 End: 06-06-[address] TAMIA FRANCE Facility:[facility] Start: 04-24-2022 End: 04-24-2022 ambulatory Jorge Luis Enriquez Other [facility] Other Start: 04-24-2022 Office outpatient visit 25 minutes Jorge Luis Enriquez [facility] [place] Start: 04-24-2022 Telephone encounter Jorge Luis [facility] Start: 04-09-2022 (Procedure) Ember Enriquez [facility] Start: 04-09-2022 End: 04-09-2022 Admission to same day surgery center MD Tamia France Work Phone: [facility] Start: 04-09-2022 End: 04-09-2022 ambulatory MD Tamia France Work Phone: [facility] Work Phone: Start: 03-26-2022 (Procedure) Ember Enriquez [facility] Start: 03-26-2022 End: 03-26-2022 Admission to same day surgery center MD Tamia France Work Phone: [facility] Start: 03-26-2022 End: 03-26-2022 ambulatory MD Tamia France Work Phone: [facility] Work Phone: Start: 02-26-2022 End: 02-26-2022 Subsequent hospital visit by physician Xr [facility] Comment on above: PMR (polymyalgia rhe umatica) ([facility]) [M35.3] Start: 02-26-2022 End: 02-27-2022 ambulatory TAMIA FRANCE Facility:[facility] Start: 02-19-2022 End: 02-19-2022 Patient encounter procedure MD Tamia France Work Phone: [facility] Start: 02-07-2022 End: 02-07-2022 ambulatory Jorge Luis Enriquez Other [facility] Other Start: 02-07-2022 Office outpatient visit 25 minutes Jorge Luis Enriquez [facility] [place] Start: 12-28-2021 End: 12-29-[address] TAMIA FRANCE Facility: Start: 11-06-2021 End: 11-06-2021 ambulatory Jorge Luis Enriquez Other [facility] Other Start: 11-06-2021 Office outpatient visit 25 minutes Jorge Luis Horaner [facility] [place] Start: 10-03-2021 End: 10-03-2021 ambulatory Jorge Luis Enriquez Other [facility] Other Start: 10-03-2021 Office outpatient visit 25 minutes Jorge Luis Felter [facility] [place] Start: 05-28-2021 End: 05-28-2021 ambulatory Jorge Luis Enriquez Other [facility] Other Start: 05-28-2021 Office outpatient visit 25 minutes Jorge Luis Horaner [facility] [place] Procedures Date Procedure Procedure Detail Performing Clinician Start: 10-07-2023 Radiofrequency destruction of peripheral nerve MD Tamia France Work Phone: Start: 09-07-2023 Computed tomography of abdomen and pelvis with contrast MD Tamia France Work Phone: Start: 07-27-2023 URINARY TRACT INFECTION (HTRX) George Hogue DO Work Phone: Start: 07-27-2023 Urnls dip stick/tablet rgnt auto w/o microscopy George Hogue DO Work Phone: Start: 04-22-2023 Screening mammography of bilateral breasts MD Tamia France Work Phone: Start: 03-18-2023 Radiofrequency destruction of peripheral nerve MD Tamia France Work Phone: Start: 10-21-2022 End: 11-22-2022 H/O: hysterectomy Status post hysterectomy George Hogue DO Work Phone: Start: 04-09-2022 Radiofrequency destruction of peripheral nerve MD Tamia France Work Phone: Start: 03-26-2022 Radiofrequency destruction of peripheral nerve MD Tamai France Work Phone: Start: 02-26-2022 Radex shoulder complete minimum 2 views Josué Wolfe MD Work Phone: Start: 02-19-2022 End: 02-19-2022 Screening mammography of bilateral breasts MD Tamia France Work Phone: Start: 11-30-2018 Colonoscopy George Hogue DO Work Phone: Plan of Treatment Date Care Activity Detail Author Start: 11-30-2028 Screening for malignant neoplasm of colon [facility] Start: 04-15-2024 End: 04-15-2024 Patient encounter procedure 04/15/2024 10:15 AM EDT Office Visit [facility] [address] [place] [phone] Kaila Zaman DO [address] [place] [address] [facility] Start: 03-20-2024 Medicare Annual Wellness (AWV) Medicare Annual Wellness (AWV) [facility] Start: 12-10-2023 End: 12-10-2023 Patient encounter procedure 12/10/2023 10:15 AM EDT Office Visit [facility] [address] [place] [phone] Tamia France MD [address] [place] [address] [facility] Start: 10-07-2023 [facility] Start: 10-06-2023 End: 10-06-2023 Patient encounter procedure 10/06/2023 12:00 PM EDT Office Visit [facility] [address] [place] [phone] Radha Sapp MD [address] [facility] [address] [id number] [facility] Start: 03-18-2023 [facility] Start: 02-19-2023 Screening for malignant neoplasm of breast Mammogram [facility] Start: 02-14-2023 Influenza vaccination INFLUENZA (#1) [facility] Start: 06-16-2022 ADVANCE DIRECTIVE DISCUSSION ADVANCE DIRECTIVE DISCUSSION [facility] Start: 04-09-2022 [facility] Start: 03-26-2022 [facility] Start: 02-21-2022 COVID-19 VACCINE (5 - Booster for Moderna series) COVID-19 VACCINE (5 - Booster for Moderna series) [facility] Start: 2020 BONE DENSITY BONE DENSITY [facility] Start: 2000 COLOGUARD (FIT-DNA) COLOGUARD (FIT-DNA) [facility] Start: 2000 Colonoscopy COLONOSCOPY [facility] Start: 2000 COLORECTAL CANCER SCREENING COLORECTAL CANCER SCREENING [facility] Start: [address] COLONOGRAPHY [facility] Start: 2000 FECAL OCCULT BLOOD FECAL OCCULT BLOOD [facility] Start: 2000 SIGMOIDOSCOPY SIGMOIDOSCOPY [facility] Start: 1995 Mammography MAMMOGRAM [facility] Start: 1974 SHINGRIX VACCINE (1 of 2) SHINGRIX VACCINE (1 of 2) [facility] Start: 1974 Urine microalbumin profile DTAP,TDAP,TD (1 - Tdap) [facility] Start: 1973 ANNUAL PCP TEAM CHRONIC DISEASE VISIT ANNUAL PCP TEAM CHRONIC DISEASE VISIT [facility] Start: 1973 Hepatitis B surface antibody level LDL CHOLESTEROL [facility] Start: 1965 3 comp foot exam completed DIABETIC FOOT EXAM [facility] Start: 1965 Hepatitis B screening URINE ALBUMIN:CREATININE RATIO [facility] Start: 1965 Hepatitis C antibody, confirmatory test DILATED RETINAL EXAM [facility] Start: 1961 PNEUMOCOCCAL: 65+ (1 - PCV) PNEUMOCOCCAL: 65+ (1 - PCV) [facility] Start: 1960 Hemoglobin A1c/Hemoglobin.total in Blood HBA1C [facility] Start: 1955 Screening for malignant neoplasm of colon [facility] Patient Education [facility] Work Phone: Patient referral [facility] Work Phone: Immunizations Immunization Date Immunization Notes Care Provider Marry lee 04-18-2023 zoster vaccine recombinant A nthony Lennie DO Work Phone: [facility] 04-07-2023 Influenza, Seasonal, Quadrivalent, Adjuvanted George Hogue DO Work Phone: [facility] 02-14-2023 zoster vaccine recombinant A nthony Estellemond DO Work Phone: [facility] 11-25-2022 Pneumococcal Conjuga te PCV 20 George Lennie DO Work Phone: [facility] 03-20-2021 influenza, high dose seasonal, preservative-free George Hogue DO Work Phone: [facility] 04-10-2020 influenza, injectabl e, quadrivalent, preservative free George Hogue DO Work Phone: [facility] 04-24-2019 influenza, injectabl e, quadrivalent, contains preservative George Hogue DO Work Phone: [facility] 04-28-2017 seasonal influenza, intradermal, preservative free George Hogue DO Work Phone: [facility] 04-12-2016 influenza virus vacc ine, split virus (incl. purified surface antigen) George Hogue DO Work Phone: [facility] 04-16-2014 seasonal influenza, intradermal, preservative free George Hogue DO Work Phone: [facility] 07-02-2010 pneumococcal polysaccharide vaccine, 23 valent George Hogue DO Work Phone: [facility] 04-09-2001 pneumococcal polysaccharide vaccine, 23 valent George Hogue DO Work Phone: [facility] Payers Date Payer Category Payer Self-pay [id number] 2023 Self-pay [id number] 2022 Medicare [id number] 2020 Medicare [id number]. [id number] 2006 Unknown [employer] BLUE CARD PPO OOS [id number] 2006-Present [phone] [facility] [id number] [place] [address] PPO [id number] 1959 Blue Cross Blue Shield [id number] 2.16.840.1.152384.19 1959 Medicare [id number] 2.16.840.1.846193.19 1959 Medicare [id number] 1955 Unknown [id number] 2.16.840.1.417485.3.579.2.59 3 1955 Unknown [id number] 2.16.840.1.322525.3.579.2.59 3 1955 Unknown [id number] 2.16.840.1.222650.3.579.2.59 3 1955 Unknown [id number] 2.16.840.1.354569.3.579.2.12 59 1955 Unknown [id number] 2.16.840.1.180420.3.579.2.12 59 1955 Unknown [id number] 2.16.840.1.186638.3.579.2.12 59 1955 Unknown [id number] 2.16.840.1.415780.3.579.2.12 59 1955 Unknown [id number] 2.16.840.1.702267.3.579.2.12 59 1955 Unknown [id number] 2.16.840.1.373245.3.579.2.12 59 1955 Unknown [id number] 2.16.840.1.332784.3.579.2.12 59 1955 Unknown [id number] 2.16.840.1.455619.3.579.2.12 59 1955 Unknown [id number] 2.16.840.1.844194.3.579.2.12 59 1955 Unknown [id number] 2.16.840.1.141699.3.579.2.12 59 1955 Unknown [id number] 2.16.840.1.745711.3.579.2.12 59 1955 Unknown [id number] 2.16.840.1.271254.3.579.2.12 59 1955 Unknown [id number] 2.16.840.1.561710.3.579.2.12 59 1955 Unknown [id number] 2.16.840.1.507680.3.579.2.12 59 1955 Unknown [id number] 2.16.840.1.845710.3.579.2.12 59 1955 Unknown [id number] 2.16.840.1.548932.3.579.2.12 59 1955 Unknown [id number] 2.16.840.1.410178.3.579.2.12 59 1955 Unknown [id number] 2.16.840.1.011815.3.579.2.12 59 Unknown [employer] BC/BS [id number] Unknown [id number] 2.16.840.1.074713.3.579.2.53 1 Unknown [id number] 2.16.840.1.622741.3.579.2.53 1 Unknown [id number] 2.16.840.1.249499.3.579.2.53 1 Unknown [id number] 2.16.840.1.887626.3.579.2.53 1 Unknown [id number] 2.16.840.1.207463.3.579.2.53 1 Unknown [id number] 2.16.840.1.791856.3.579.2.53 1 Unknown [id number] 2.16.840.1.082448.3.579.2.53 1 Social History Date Type Detail Facility Unknown if ever smoked [facility] Other Start: 11-25-2022 End: 07-09-2023 Sex Assigned At [facility] Other Start: 2021 End: 09-07-2023 Tobacco smoking status RIIS Ex-smoker (finding) [facility] Start: 1955 Sex Assigned At Female F [facility] End: 10-20-2006 History of tobacco use Current smoker [facility] End: 10-20-2006 History of tobacco use Cigarette Smoker [facility] Start: 02-15-2011 End: 11-25-2022 Cigarettes smoked current (pack per day) - Reported 1.5 [facility] Start: 02-15-2011 End: 11-22-2022 Tobacco use and exposure Smokeless tobacco non-user [facility] Start: 01-06-2015 End: 07-27-2023 Alcohol intake Current drinker of alcohol (finding) [facility] Start: 1955 Sex Assigned At Not on file [facility] Start: 02-16-2022 End: 02-26-2022 Exposure to SARS-CoV-2 (event) Not sure [facility] Start: 12-27-2022 Alcohol Comment 6+ drinks carlos hly. Caffine intake: 1-2 cups per day [facility] Medical Equipment Procedure Code Equipment Code Equipment Origin al Text Equipment Identifier Dates [employer] FDA Start: 08-19-2017 [employer] HAL[employer] FDA Start: 08-19-2017 [employer] HAL[employer] FDA Start: 08-19-2017 [employer] HAL[employer] FDA Start: 08-19-2017 [employer] HAL[employer] FDA Start: 08-19-2017 [employer] HAL[employer] FDA Start: 08-19-2017 [employer] HAL[employer] FDA Start: 08-19-2017 OB[employer] HAL[employer] FDA Start: 08-19-2017 [employer] FDA Start: 08-19-2017 Goals Date Patient Goal Desired Activity /State Clinical Notes 07-12-2010 to 10-07-2023 George Hogue, DO - 07/27/2023 11:50 AM EST Note Date & Type Note Facility 10-07-2023 Procedure note [facility] 07-27-2023 History of Present illness Narrative HPI: Historian of HPI: patient Ameena Bae is a 68 y.o. female who presents today to the Urgent Care with the following complaints and denials which have been present for 3 day(s) C/O Denies Symptom Comments [x] [] Dysuria [] [x] hematuria [x] [] Urinary frequency [] [x] Urinary incontinence [x] [] Urinary urgency [] [x] Genital itching [] [x] Genital discharge [] [x] Back pain [] [x] Abd pain Additional Comments: pt has not taken any OTC medications ROS: A complete system ROS was performed and negative aside from the pertinent positives noted in the HPI and PE. IH Testing: An In-House UA has been obtianed: Collected by clean catch REFERENCE RANGE Leukocytes: 3+ Nitrite: Negative Protein: Negative PH: 6.0 Blood: 3+ Specific [place]: 1.015 Ketone: Negative Glucose: Negative Neg Neg Neg - Trace mg/dl 5.0-8.0 Neg 1.005-1.030 Neg Neg EXAMINATION: General: No acute distress. Awake and conversant. Eyes: Normal conjunctiva, anicteric. No discharge. CV: RRR without murmurs, rubs or gallops Respiratory: Respirations are non-labored. Lungs are clear to auscultation. Abdomen: soft, nontender, nondistended, no guarding or rebound. Back: b/l flanks nontender to palpation, negative miah's punch b/l Skin: No rashes or ulcers. Psych: Alert and oriented. Cooperative. Appropriate mood and affect. MSK: Moving all extremities appropriately. Extremities: No edema, clubbing or cyanosis. Neuro: Nonfocal 1. Acute cystitis with hematuria - cephalexin (Keflex) 500 MG capsule; Take 1 capsule (500 mg) by mouth in the morning and 1 capsule (500 mg) before bedtime. Do all this for 5 days. Dispense: 10 capsule; Refill: 0 Advised pt of dx and tx plan. Medications instructions and potential adverse effects discussed. Advised to finish whole course of abx even if the s/s improve. Recommended supportive care including pushing po fluids. Advised to return to care either PCP, UC or ER if s/s worsen, persist or develops fevers, chills, back/flank pain, inability to tolerate PO intake, n/v, urinary retention. F/u with PCP within next 7-10 days. 2. Dysuria - URINALYSIS ANALYZER TEST - URINARY TRACT INFECTION (HTRX) documented in this encounter 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 She attributes this to a recent right sacral lateral radiofrequency ablation. We will continue to monitor her symptoms in this region. In the meantime she will continue taking Gabapentin 300 mg once at bedtime. This medication was refilled today. Anatomy of spine discussed in detail with patient in regard to patients condition. Overall, patient believes their pain is reasonably well controlled, and she agrees with our treatment plan. Mar, Other chronic pain (ICD-10 - G89.29) Mar, Other Above note writ ten by Maurice Cook LPN, Cosmetologist. Edited and approved by Dr. Jorge Luis Enriquez MD. 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 She shows notable pain consistent with degenerative changes of the lumbar spine. Patient is a reasonable candidate for repeat right sacral lateral radiofrequency ablation. Risks and benefits of procedure explained to patient; patient verbalizes understanding. Patient was informed this procedure is no longer covered under insurance and would be [id number]. She wishes to proceed and self pay for this procedure. Anatomy of spine discussed in detail with patient in regard to patients condition. Feb, Other chronic pain (ICD-10 - G89.29) Feb, Other Above note writ ten by Maurice Cook LPN, Cosmetologist. Edited and approved by Dr. Jorge Luis Enriquez MD. [facility] Other 11-09-2022 Evaluation note* Encounter Date Diagnosis Assessment Notes Treatment Notes Treatment Clinical Notes Apr, Lumbosacral spondylosis without myelopathy (ICD-10 - M47.817) Patient is voicing minimal complaints of pain at this time. She attributes this to a recent sacrolateral radiofrequency ablation. We will continue to monitor her symptoms in this region. Anatomy of spine discussed in detail with patient in regards to patients condition. Overall, patient believes their pain is reasonably well controlled and she is in agreement with our treatment plan. Apr, Other low back pain (ICD-10 - M54.59) She continues to have need for her current Tramadol regimen, up to two times daily as needed for breakthrough pain and Gabapentin 300 mg once at night. Risks and side effects of this medication was discussed in detail with the patient who voiced understanding. An OARRS report was processed and reviewed. Also, an opioid risk assessment being completed without concerns. She denies any significant opioid related side effects and appears to be compliant with this medication. The patient was counseled and educated regarding the risks and benefits of boilermaker assembly and erection opioid use. She understands the associated risks with this medication and agrees that it provides reasonable benefit in regard to her pain control and level of function. This medication was refilled today. Anatomy of spine discussed in detail with patient in regard to patients condition. Apr, Other chronic pain (ICD-10 - G89.29) Apr, Other Above note writ ten by Maurice Cook LPN, Cosmetologist. Edited and approved by Dr. Jorge Luis Enriquez MD. [facility] Other 11-09-2022 Evaluation note* Encounter Date Diagnosis Assessment Notes Treatment Notes Treatment Clinical Notes Apr, Other low back pain (ICD-10 - M54.59) Apr, Lumbosacral spondylosis without myelopathy (ICD-10 - M47.817) [facility] Other 09-13-2022 NoteHNO ID: [id number] Author: RT Anyi(Aretha) Service: ? Author Type: Technologist Type: Progress Notes Filed: 02/26/2022 10:59 AM Note Text: Radiology Service Progress Note PATIENT NAME: Ameena Bae DATE OF SERVICE: February 26, 2022 TIME: 10:58 AM PATIENT IDENTITY VERIFICATION COMPLETED USING TWO (2) IDENTIFIERS: Name and Date of confirmed by patient verbally. FALL SCREENING: Has the patient had 2 falls in the last year or 1 fall with injury or currently using an Ambulatory Assistive Device (Walker, Cane, Wheelchair, Crutches, etc.)? No PATIENT GENDER DATA: Female. status: : No status: NO. PATIENT RELEVANT IMPLANT DATA REVIEWED: Not Applicable RADIOLOGY DEPARTMENT: General X-ray: Exam(s) Completed: Upper Extremity X-Ray(s): Shoulder, AP / TRUE AP bilateral and Hand, bilateral PERIPHERAL IV DATA: Not applicable SIGNED BY: RT Anyi(R) February 26, 2022 10:58 [facility]09-13-2022 NoteHNO ID: [id number] Author: Josué Wolfe MD Service: ? Author Type: Physician Type: Progress Notes Filed: 02/27/2022 7:53 AM Note Text: Rheumatology CONSULTATION Referring Provider: Tamia France MD Date of Service: 02/26/2022 Gender: female Ethnicity: White Age: [age] year old Chief Complaint: New Patient and PMR (Second Opinion) Last Rheumatology visit: None at [facility] Ameena Bae is a 66 year old White female who presents on 02/26/2022 for in person visit for evaluation of New Patient and PMR (Second Opinion). Onset of symptoms began 2017. Ameena is RF negative - 9 (02/26/2022). There are no rheumatoid nodules present. She does not have any joint swelling. She reports morning stiffness and that it lasts for about 60 minutes . Morning stiffness Duration 02/26/2022 Minutes 60 HISTORY OF PRESENT ILLNESS NEW CONSULT February 26, 2022 Second Opinion Mrs. Bae is a very nice 66 y.o. lady seen at the request of her PCP for Second Opinion on PMR She is accompanied by her spouse Trevor Patient is under the care of an outside Energy Auditor, Dr. Canelo Villarreal in [place]; States they are seeking second opinion and is concerned as is still on prednisone, going into 5th yr and still on the prednisone and because of that has had to be on Prolia for osteoporosis. States her PCP recommended she sees me. She was diagnosed with Polymyalgia Rheumatica by her outside Energy Auditor. States he also told her that it could possibly be some rheumatoid starting She has history of osteoarthroses multiple jts, s/p rt THR from advanced, bone on bone osteoarthroses, DDD and spinal stenosis. Reports has spinal stenosis, and sometimes gets LE/calf pains after walking, describes pseudoclaudication Onset: little over 4 yrs ago States were camping, could not sit or lay down, shoulders were hurting, and left the camp Denies infections or tick or insect bite Saw her PCP who diagnosed her with Polymyalgia Rheumatica and referred to Rheumatology Main symptoms: shoulders across and the deltoids, back from hips up, hip pains, groin and lateral aspect, describing pelvic girdle. States had labs, and inflammation markers were elevated. I do not have records of that. 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 Pain was same with mvt and activity Denies jt swelling Am stiffness was all day Currently reports: Hips pain and states many times feels pain/ache in hands and shoulders, still notices, but is tolerable States has noticed soreness in the MCP's and PIP's, b/l, sometimes if doing too much feels it in wrists Does not report episodes of ulnar styloid involvement Denies current headaches, vision loss or blindness or scalp tenderness. Denies jaw tongue or limb claudication. Reports that rest is better than use and mvt of jts, of all, shoulders, back, hips, hands/wrists Am stiffness: yes, about an hour , back and states the hands and wrists resolve within half an hour Jt swelling: none Denies neck pains Reports chronic LB pains, sees Spine Surgeon and Pain Mgt. She is s/p spine surgery for scoliosis, L2-5 States will be having RFA for her back 03/26/2022 States her surgeon told her to avoid another surgery Denies having had PT Denies having had for the back Has not had x-rays of her shoulders Treatment to date : prednisone 3 mg daily (tapered on Friday), prior to that was on 4 mg daily States started on 40 mg daily and tapered over the yrs; When tapers to 2-3 mg daily, would flare. So she tapers by alternating (4 mg every other day with 3 mg for example, before taper from 4 to 3 mg) When flares dose is incr to 10 mg daily for 3-4 wks then tapers from there. Has been on prednisone since 2018; States she feels her current taper has been working methotrexate 25 mg/wk (every Fri), oral: I don't really feel different with it and denies benefit to jt pains, stiffness or with helping her taper the pred better. has been on methotrexate for about 3 yrs Takes folic acid daily Reports well tolerate Denies any infections Giant Cell Arteritis ROS: had on rt upper side, pointing to upper evangelical, about 6-8 months ago and her special needs nanny increased her dose to 10 mg daily and then tapered again. States the MUNOZ's resolve with incr pred dose. Has not had anymore MUNOZ's. States her eye would water at the time; reported pain pressure behind her eye; saw her housing management representative and was told he did not see any concerning findings. was told had early cataract, but did not have glaucoma and told her retina was healthy. At that time, was having scalp tenderness at the top, denies vision loss or changes, denies jaw/tongue or successful balloon [employer] etc. limb claudication, no fe (more content not included)...[place] 02-07-2022 Evaluation note* Encounter Date Diagnosis Assessment Notes Treatment Notes Treatment Clinical Notes Jan, Lumbosacral spondylosis without myelopathy (ICD-10 - M47.817) Jan, Other low back pain (ICD-10 - M54.59) We discussed treatment options for the patient's persistent low bilateral sided lumbar/gluteal pain. She shows notable pain consistent with the sacroiliac joint. She has failed multiple previous conservative treatment options. Given location of pain and exam findings, patient is a candidate for repeat sacrolateral radiofrequency ablation, which we will proceed with. Risks and benefits of procedure explained to patient; patient verbalizes understanding. She continues to have need for her current Tramadol regimen, up to two times daily as needed for breakthrough pain and Gabapentin 300 mg once at night. Risks and side effects of this medication was discussed in detail with the patient who voiced understanding. An OARRS report was processed and reviewed. Also, an opioid risk assessment being completed without concerns. She denies any significant opioid related side effects and appears to be compliant with this medication. The patient was counseled and educated regarding the risks and benefits of prison opioid use. She understands the associated risks with this medication and agrees that it provides reasonable benefit in regard to her pain control and level of function. This medication was refilled today. Anatomy of spine discussed in detail with patient in regard to patients condition. Jan, Other chronic pain (ICD-10 - G89.29) Jan, Other Above note writ ten by Maurice Cook LPN, Cosmetologist. Edited and approved by Dr. Jorge Luis Enriquez MD. [employer] [facility] Other 05-24-2022 Evaluation note* Encounter Date Diagnosis Assessment Notes Treatment Notes Treatment Clinical Notes October, Lumbosacral spondylosis without myelopathy (ICD-10 - M47.817) October, Other low back pain (ICD-10 - M54.59) Patient has been doing reasonably well lately, she continues to have need for her current Tramadol regimen, up to two times daily as needed for breakthrough pain and Gabapentin 300 mg once at night. Risks and side effects of this medication was discussed in detail with the patient who voiced understanding. An OARRS report was processed and reviewed. Also, an opioid risk assessment being completed without concerns. She denies any significant opioid related side effects and appears to be compliant with this medication. The patient was counseled and educated regarding the risks and benefits of prison opioid use. She understands the associated risks with this medication and agrees that it provides reasonable benefit in regard to her pain control and level of function. This medication was refilled today. Anatomy of spine discussed in detail with patient in regard to patients condition. We will follow up with patient in three months, sooner if needed. October, Other chronic pain (ICD-10 - G89.29) October, Other Above note writ ten by Maurice Cook LPN, Cosmetologist. Edited and approved by Dr. Jorge Luis Enriquez MD. [employer] [facility] Other 04-20-2022 Evaluation note* Encounter Date Diagnosis Assessment Notes Treatment Notes Treatment Clinical Notes Sep, Lumbosacral spondylosis without myelopathy (ICD-10 - M47.817) Sep, Other low back pain (ICD-10 - M54.59) Patient has been doing reasonably well lately, she continues to have need for her current Tramadol regimen, up to two times daily as needed for breakthrough pain. Given some of her pain symptoms and difficulty sleeping at night due to pain, we will plan on trialing Gabapentin 300 mg once at night. Risks and side effects of this medication was discussed in detail with the patient who voiced understanding. An OARRS report was processed and reviewed. Also, an opioid risk assessment being completed without concerns. She denies any significant opioid related side effects and appears to be compliant with this medication. The patient was counseled and educated regarding the risks and benefits of boilermaker assembly and erection opioid use. She understands the associated risks with this medication and agrees that it provides reasonable benefit in regard to her pain control and level of function. This medication was refilled today. Anatomy of spine discussed in detail with patient in regard to patients condition. We will follow up with patient in one month, sooner if needed. Sep, Other chronic pain (ICD-10 - G89.29) Sep, Other Above note writ ten by Maurice Cook LPN, Cosmetologist. Edited and approved by Dr. Jorge Luis Enriquez MD. [place] [employer] Other 02-07-2022 NoteHISTORY: Bone density screening. COMPARISON: None PROCEDURE: Imaging of the lumbar spine and bilateral hips was obtained for bone density evaluation. FINDINGS: REGION BMD (g/cm??) YOUNG ADULT T-SCORE AGE-MATCHED Z-SCORE LEFT FOREARM 1/3 0.535 -2.6 -0.9 RIGHT FOREARM 1/3 0.623 -1.2 0.6 LEFT HIP???neck 0.740 -1.0 0.4 The mean BMD and corresponding T-score listed above indicate: Osteoporosis and thus places the patient at a significant increased risk for fracture. Recommend follow-up exam in 1 year, sooner as clinically necessary. Comment: The T-score is the primary focus of the interpretation of a patient???s bone mineral density measurement. The T-score is the number of standard deviations and individual is above or below the mean value for a young female having normal bone mass. The WHO defines osteoporosis based on the T-score value: +1.0 to -0.9 : Normal bone mass -1.0 to -2.5 : Osteopenia and thus may be at future risk of fracture. -2.6 to -5.0 : Osteoporosis and at significantly increased risk of fracture. IMPRESSION: OSTEOPOROSIS : RECOMMEND ONE YEAR FOLLOW-UP. Report reported and signed by Estela Dean Jules on 07/23/2021 [id number] Evaluation note* Encounter Date Diagnosis Assessment Notes Treatment Notes Treatment Clinical Notes May, Lumbosacral spondylosis without myelopathy (ICD-10 - M47.817) May, Other low back pain (ICD-10 - M54.59) Patient denies any complaints of pain at this time. She attributes this to recent bilateral sacroiliac radiofrequency ablations. We will continue to monitor and proceed with future alternative treatment as needed. In the meantime, patient has continued need for Tramadol 50 mg up to two times daily as needed. An OARRS report was processed and reviewed. Also, an opioid risk assessment being completed without concerns. She denies any significant opioid related side effects and appears to be compliant with this medication. The patient was counseled and educated regarding the risks and benefits of prison opioid use. She understands the associated risks with this medication and agrees that it provides reasonable benefit in regards to her pain control and level of function. This medication was refilled today. Anatomy of spine discussed in detail with patient in regards to patients condition. Overall, patient is doing well and in agreement with our treatment plan. May, Other chronic pain (ICD-10 - G89.29) May, Other Above note writ ten by Wesley Espinal MA, Cosmetologist. Edited and approved by Dr. Jorge Luis Enriquez MD. [facility] Other 01-27-2011 History of Past illness Narrative* Problem Noted Date Diagnosed Date Resolved Date Vaginal dysplasia 07/12/2010 documented as of this encounter (statuses as of 01/24/2023) [facility] available[facility] Work Phone: Evaluation noteNo InformationNort [employer] Other Evaluation noteNort [employer] Other Evaluation note* Diagnosis PMR (polymyalgia rheumatica) (HCC) Polymyalgia rheumatica Pain of both shoulder joints Bilateral hand pain Pain in limb [facility] Acute cystitis with hematuria- Primary Dysuria documented in this encounter [facility] HealthcareEvaluation note* Diagnosis Onset Date Resolution Status Degenerative joint disease of sacroiliac joint acute Other chronic pain acute Other low back pain acute [facility] Work Phone: History general Narrative - Reported* Type Description Date Medical History anxiety Medical History depression Medical History Polymyalgia Rheumatica Surgical History gastric bypass 2007 Surgical History laminectomy Surgical History hysterectomy Surgical History colonoscopy Surgical History wisdom teeth Surgical History tonsillectomy Surgical History back surgery 01/2014 Surgical History RT hip replacement 03/2016 Surgical History lower back nerve ablation- Dr. Enriquez 12-21-2018 Surgical History EGD-Healed marginal ulcer s/p g atric bypass 06/28/2019 Surgical History left wrist surgery 01/2021 Hospitalization History see above [facility] Other History general Narrative - ReportedNort [employer] Other Reason for referral (narrative)* Diagnostic Procedure Only (Routine) - Closed Specialty Diagnoses / Procedures Referred By Contac t Referred To Contact XR IMAGING Diagnoses Bilateral hand pain Procedures XR HAND GENERAL 3V PA/LAT/OBL BILATERAL RADEX HAND MINIMUM 3 VIEWS Josué Wolfe MD [address] [place] [address] Xr Imaging Referral ID Status Reason Start Date Expiration Date V isits Requested Visits Authorized [id number] Closed Auto-Generate d Referral 02/26/2022 03/28/2023 1 1 * Diagnostic Procedure Only (Routine) - Closed Specialty Diagnoses / Procedures Referred By Contac t Referred To Contact XR IMAGING Diagnoses PMR (polymyalgia rheumatica) (HCC) Pain of both shoulder joints Procedures XR SHOULDER [id number] AP/TRUE AP RIGHT RADEX SHOULDER COMPLETE MINIMUM 2 VIEWS Josué Wolfe MD [address] [place] [address] Xr Imaging Referral ID Status Reason Start Date Expiration Date V isits Requested Visits Authorized [id number] Closed Auto-Generate d Referral 02/26/2022 03/28/2023 1 1 * Diagnostic Procedure Only (Routine) - Closed Specialty Diagnoses / Procedures Referred By Contac t Referred To Contact XR IMAGING Diagnoses PMR (polymyalgia rheumatica) (HCC) Pain of both shoulder joints Procedures XR SHOULDER LIMITED 2V AP/TRUE AP LEFT RADEX SHOULDER COMPLETE MINIMUM 2 VIEWS Josué Wolfe MD [address] [place] [address] Xr Imaging Referral ID Status Reason Start Date Expiration Date V isits Requested Visits Authorized [id number] Closed Auto-Generate d Referral 02/26/2022 03/28/2023 1 1 [facility] Narrative* Diagnostic Procedure Only (Routine) - Closed Specialty Diagnoses / Procedures Referred By Contac t Referred To Contact XR IMAGING Diagnoses Bilateral hand pain Procedures XR HAND GENERAL 3V PA/LAT/OBL BILATERAL RADEX HAND MINIMUM 3 VIEWS Josué Wolfe MD [address] [place] [address] Xr Imaging Referral ID Status Reason Start Date Expiration Date V isits Requested Visits Authorized [id number] Closed Auto-Generate d Referral 02/26/2022 03/28/2023 1 1 [facility] Summary Purpose Family History No Family History Records Found Relationship Condition Age at Onset Recorded Date/T rikki father Malignant neoplasm Unknown brother Malignant neoplasm Unknown Not Specified Malignant neoplasm Unknown Relationship Condition Age at Onset Recorded Date/T rikki father Malignant neoplasm Unknown brother Malignant neoplasm Unknown Not Specified Malignant neoplasm Unknown brother Unknown father Unknown Malignant neoplasm Unknown family member Unknown Not Specified Unknown Relationship Condition Age at Onset Recorded Date/T rikki father Malignant neoplasm Unknown Malignant neoplasm of lung Unknown brother Malignant neoplasm Unknown Not Specified Malignant neoplasm Unknown brother Unknown father Unknown Malignant neoplasm Unknown family member Unknown Not Specified Unknown Advance Directives No Advanced Directives Records Found Advance Directive Response Recorded Date/ Time Advance Directives Yes April 2:42pm Advance Directive Response Recorded Date/ Time Advance Directives Yes April 1:42pm Chief Complaint and Reason for Visit Chief Complaint Z12.39 Chief Complaint Z12.39 Back Pain Chief Complaint Z12.39 Back Pain Back Pain Chief Complaint M81.0 Chief Complaint M81.0 M81.0. Back Pain Chief Complaint M81.0 M81.0. Back Pain Screening Chief Complaint Back Pain Screening I63.21 R00.2 Chief Complaint I63.21 R00.2 back and abd pain M81.0. 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 dical Specialist DATE CREATED AUTHOR AUTHOR'S ORGANIZ ATION 09/11/2021 [place] [facility] DATE CREATED AUTHOR AUTHOR'S ORGANIZ ATION 03/12/2022 [place] DATE CREATED AUTHOR AUTHOR'S ORGANIZ ATION 10/18/2022 [facility] DATE CREATED AUTHOR AUTHOR'S ORGANIZ ATION 10/14/2023 [facility] y[facility] DATE CREATED AUTHOR AUTHOR'S ORGANIZ ATION 10/24/[address] [facility] dical Specialists EPIC REASON FOR VISIT (unrecogniz ed section and content) FOLLOW UP AFTER TERESO SI RFASM ED REFILL6 MONTH FOLLOW UPMED REFILLLEFT SACRAL LATERAL BRANCH RFA L5 S1 S2 S3/VWRIGHT SACRAL LATERAL BRANCH RFA L5 S1 S2 S3/VWF/U TERESO SACRAL LATERAL BRANCH RFANo InformationBACK PAINRIGHT SACRAL LATERAL BRANCH RFA L5 S1 S2 S3 /VWF/U RIGHT SACARAL LATERAL BRANCH RFANo Information Care Teams (unrecognized sec tion and content) Team Status: Active Member Role Status Dates Tamia France MD Primary Care Provider Active Team Status: Inactive Member Role Status Dates Tamia France MD Primary Care Provider Active Referral Self Attending Provider Active Team Status: Active Member Role Status Dates Tamia France MD Primary Care Provider, Attending Prov ider Active Team Status: Inactive Member Role Status Dates Tamia France MD Primary Care Provider, Attending Prov ider Active Team Status: Inactive Member Role Status Dates Tamia France MD Primary Care Provider Active Jorge Luis Enriquez MD Attending Provider Active Reeling Operator Relationship Specialty Start Date End Date Tamia France MD [address] [place] [address] PCP - General 11/11/01 Team Status: Inactive Member Role Status Dates Tamia France MD Primary Care Provider Active Yessenia Palomares NP-C Attending Provider Active Reeling Operator Relationship Specialty Start Date End Date Tamia France MD [address] [place] [address] PCP - General Internal Medicine 11/07/22 Jr. Kalen Ramírez, DO [address] [place] [address] Consulting Physician Orthopaedic Surgery 11/25/22 Kaila Zaman, DO [address] [place] [address] Consulting Physician Obstetrics and Gynecology 11/25/22 Reeling Operator Relationship Specialty Start Date End Date Tamia France MD [address] [place] [address] PCP - General Internal Medicine 11/07/22 Jr. Kalen Ramírez, [address] [place] [address] Consulting Physician Orthopaedic Surgery 11/25/22 Kaila Zaman DO [address] [place] [address] Consulting Physician Obstetrics and Gynecology 6/12/23 Team Status: Inactive Member Role Status Dates Tamia Hill , MD Primary Care Provider Active St art: June 14, 2023 End: June 14, 2023 MEG Lagunas Attending Provider Active S tart: June 14, 2023 End: June 14, 2023 Team Status: Inactive Member Role Status Lola France MD Primary Care Provider Active St art: September 07, 2023 End: September 07, 2023 Gomez Hannah DO Emergency Provider Active Start: September 07, 2023 End: September 07, 2023 Team Status: Active Member Role Status Lola France MD Primary Care Provide r, Attending Provider, Referring Provider Active Start: September 10, 2023 Team Status: Inactive Member Role Status Lola France MD Primary Care Provider Active St art: September 11, 2023 End: September 11, 2023 Jorge Luis Enriquez MD Attending Provider Active Sta rt: September 11, 2023 End: September 11, 2023 Team Status: Inactive Member Role Status Lola France MD Primary Care Provider Active St art: October 07, 2023 End: October 07, 2023 Jorge Luis Enriquez MD Attending Provider Active Sta rt: October 07, 2023 End: October 07, 2023 Team Status: Active Member Role Status Lola France MD Primary Care Provider Active St art: October 07, 2023 Jorge Luis Enriquez MD Attending Provider, Other Provider Active Start: October 07, 2023 Goals (unrecognized section and content) Goals may be documented in a n alternate section Source Comments (unrecognize d section and content) In the event this informatio n is protected by the Federal Confidentiality of Alcohol and Drug Abuse Patient Records regulations: The Federal rules restrict any use of the information to criminally investigate or prosecute any alcohol or drug abuse patient.[facility] FOR RECORDS PERTAINING TO PATIENTS WHO ARE OR HAVE BEEN ENROLLED IN A CHEMICAL DEPENDENCY/SUBSTANCEABUSE PROGRAM, SOME INFORMATION MAY BE OMITTED. This clinical summary was aggregated from multiple sources. Caution should be exercised in using it in the provision of clinical care. This summary normalizes information from multiple sources, and as a consequence, information in this document may materially change the coding, format and clinical context of patient data. In addition, data may be omitted in some cases. CLINICAL DECISIONS SHOULD BE BASED ON THE PRIMARY CLINICAL RECORDS. [facility] [employer] [facility]. provides no warranty or guarantee of the accuracy or completeness of information in this document.
[2023-12-05 11:23] LABS: Anion Gap 12.2; BUN Creatinine Ratio 17.2; Calcium 9.4 mg/dL (8.5-10.1); Carbon Dioxide 29.5 mmol/L (21.0-32.0); Chloride 106 mmol/L (98-107); Estimated GFR (African America 50 (>=60); Estimated GFR (Non-African Ame 41 (>=60); Glucose 85 mg/dL (74-106); Potassium 4.7 mmol/L (3.5-5.1); Sodium 143 mmol/L (136-145)
== END 2023-12-05 09:59 | disposition home or self-care (01) ==
LOC: LAB 09:59
PROVIDERS: PCP Internal Medicine; Visit Provider Nurse Practitioner Family
DX: Z79.899 Other long term (current) drug therapy (principal)
CPT/HCPCS: 36415; 80048

== ENCOUNTER 2024-01-29 09:16 | Outpatient (OUT) | payer MEDICARE, SELFPAY ==
[2024-01-29 10:22] LABS: Bilirubin Urine NEGATIVE (NEGATIVE); Blood Urine NEGATIVE (NEGATIVE); Clarity Urine CLEAR (CLEAR); Color Urine YELLOW (YELLOW); Glucose Urine UA NEGATIVE (NEGATIVE); Ketones Urine NEGATIVE (NEGATIVE); Leukocyte Esterase Urine TRACE (NEGATIVE); Nitrite Urine NEGATIVE (NEGATIVE); Protein Urine NEGATIVE (NEG/TRACE); Specific Gravity Urine >=1.030 (1.005-1.025); Urobilinogen Urine 0.2 EU/dL (0.2-1.0); pH Urine 5.5 (5.0-9.0)
[2024-01-29 10:30] LABS: Bacteria Urine TRACE #/HPF (NONE SEEN); Cast Seen? NONE SEEN #/LPF (NONE SEEN); Crystals Seen? None Seen #/HPF (None Seen); Mucus Urine SMALL (NONE SEEN); RBC Urine 0-2 #/HPF (0-2); Squamous Epithelial Cell Urine FEW #/LPF (NONE/RARE)
[2024-01-29 10:41] LABS: Creatinine Urine Random 151.54 mg/dL (20.00-300.00); Microalbumin Urine Random <1.3 mg/dL (<=30.0)
[2024-01-29 11:00] LABS: Alanine Aminotransferase 37 U/L (14-59); Albumin Globulin Ratio 1.2; Albumin Level 3.6 g/dL (3.4-5.0); Alkaline Phosphatase 84 U/L (46-116); Anion Gap 10.5; Aspartate Amino Transferase 30 U/L (15-37); BUN Creatinine Ratio 20.2; Bilirubin Total 0.2 mg/dL (0.2-1.0); Calcium 8.5 mg/dL (8.5-10.1); Carbon Dioxide 29.4 mmol/L (21.0-32.0); Chloride 104 mmol/L (98-107); Estimated GFR (African America >60 (>=60); Estimated GFR (Non-African Ame 53 (>=60); Globulin 3.1 g/dL; Glucose 93 mg/dL (74-106); Potassium 3.9 mmol/L (3.5-5.1); Sodium 140 mmol/L (136-145); Total Protein 6.7 g/dL (6.4-8.2)
[2024-01-30 15:10] LABS: Free Lambda Lt Chains,S 14.8 mg/L (5.7-26.3); Immunoglobulin A, Qn, Serum 157 mg/dL (87-352); Immunoglobulin G, Qn, Serum 569 mg/dL (586-1602); Immunoglobulin M, Qn, Serum 55 mg/dL (26-217); Kappa/Lambda Ratio,S 1.76 (0.26-1.65)
[2024-02-02 13:09] LABS: Antinuclear Antibodies, IFA Negative (.)
== END 2024-01-29 09:17 | disposition home or self-care (01) ==
LOC: LAB 09:19
PROVIDERS: PCP Internal Medicine; Visit Provider Nurse Practitioner Family
DX: N17.9 Acute kidney failure, unspecified (principal); Z98.84 Bariatric surgery status
CPT/HCPCS: 36415; 80053; 81001; 82043; 82570; 83521; 86038

== ENCOUNTER 2025-01-29 08:30 | Outpatient (OUT) | payer MEDICARE, SELFPAY ==
--- OUTSIDE RECORDS SUMMARY | 2025-01-27 09:30 | XMS_ITS | Encounter Summary ---
Author Organization [facility] Address [id number] [address] [place] [address] Care Team Providers Care Penciller Name Role Phone Maurice Lee MD Primary Care Provider [phone] Encounter Details Date Type Department Care Team (Late st Contact Info) Description 01/27/2025 9:30 AM EDT Telemedicine [facility] Neurology, A Department of [facility] [address] [facility] [address] [place] [address] Social History Tobacco Use Types Packs/Day Years Used Date Smoking Tobacco: Former Cigarettes Smokeless Tobacco: Never Comments:quit 12 years Alcohol Use Standard Drinks/Week Comments Not Currently 0 (1 standard drink = 0.6 oz pur e alcohol) weekly [facility] Utilities Answer Date Recorded In the past 12 months has Ap[employer], gas, oil, or water [employer] threatened to shut off services in your home? No 04/24/2024 AUDIT-C Answer Date Recorded Q1: How often do you have a drink containing alc ohol? Monthly or less 04/24/2024 Q2: How many drinks containi ng alcohol do you have on a typical day when you are drinking? 1 or 2 04/24/2024 Q3: How often do you have si x or more drinks on one occasion? Never 04/24/2024 PHQ-2 Answer Date Recorded Total Score 2 08/05/2024 PRAPARE - Transportation Answer Date Re corded In the past 12 months, has l ack of transportation kept you from medical appointments or from getting medications? No 02/2024 In the past 12 months, has l ack of transportation kept you from meetings, work, or from getting things needed for daily living? No 04/24/2024 Housing Instability Answer Date Recorde d Are you worried or concerned that in the next two months you may not have stable housing that you own, rent or stay in as a part of a household? No 04/24/2024 Childcare Answer Date Recorded Childcare Unknown 11/25/2018 Employment Answer Date Recorded Employment Unknown 11/25/2018 Hunger Screening Answer Date Recorded Within the past 12 months we worried whether our food would run out before we got money to buy more. Never True 08/05/2024 Within the past 12 months th e food we bought just didn't last and we didn't have money to get more. Never True 08/05/2024 Purpose - Life Answer Date Recorded Purpose and direction in life Unknown Comments No Sex and Gender Information Value Date Recorded Sex Assigned at Not on file Legal Sex Female 3:25 PM EDT Gender Identity Not on file Sexual Orientation Not on file documented as of this encounter Patient Instructions * Patient Instructions* Chula Jacobson MD - 01/27/2025 9:30 AM EDT Continue eliquis, would recommend against stopping it in the near future. documented in this encounter Plan of Treatment Not on file documented as of this encounter Goals Goal Patient Goal Type Associated Problems Recent Progress Patient-Stated? Author <enter goal here> General Yes Romeo Valentino, TATIANA Note: Evaluation of progress towards goal: Patient will discharge to inpatient rehab. - Romeo Valentino RN 04/25/24 10:18 AM documented as of this encounter Visit Diagnoses Not on filedocumented in this encounter Additional Health Concerns Assessment Noted Time PHQ-9 Depression Total Score: 2 08/05/19 10:39 AM EST documented as of this encounter Care Teams Penciller Relationship Specialty Start Date End Date Maurice Lee MD [address] [place] [address], [address] [place] [address] PCP - General 05/07/16 documented as of this encounter
--- OUTSIDE RECORDS SUMMARY | 2025-01-29 08:36 | XMS_ITS | Clinical Summary ---
Author Organization [facility] Address [address] [place] [address] Care Team Providers Care Business Support Associate Name Role Phone Maurice Lee MD Primary Care Provider [phone] Allergies No known active allergies Medications Cobalamine Combinations (B-12) 100-5000 MCG SL SUBL 1 Tab by Sublingual route daily. 500 mcg daily. Active CALCIUM CARBONATE-VITAMIN D (CALTRATE 600+D) 600-400 MG-UNIT PO TABS take 1 Tab by mouth 2 times daily. Active Bioflavonoid Products (TOMMY C PO) take 1 Tab by mouth Daily. Active [place]-3 Fatty Acids (FISH OIL) 1000 MG PO CAPSIndications:Maln utrition following gastrointestinal surgery,NIDDM (non-insulin dependent diabetes mellitus),Hyperchole steremia take 1 Cap by mouth Daily. Active Vit-DSS-Fe Cbn-FA (VIRT-MERRILL GT) 90-1 MG Tab take 1 tablet by mouth daily. 30 tablet 0 10/06/19 16 Active Active Problems Problem Noted Date Diagnosed Date NIDDM (non-insulin dependent diabetes mellitus) Hypercholesteremia Family History Medical History Relation Name Comments Cancer- Other Brother throat Hypertension Brother Lung Cancer Father Heart Disease - Other Mother Hypertension Mother Diabetes Other Relation Name Status Comments Brother Father Mother Other Social History Tobacco Use Types Packs/Day Years Used Date Smoking Tobacco: Never Alcohol Use Standard Drinks/Week Comments Yes 0 (1 standard drink = 0.6 oz pur e alcohol) rarely Comments No Sex and Gender Information Value Date Recorded Sex Assigned at Not on file Legal Sex Female 4:58 PM EST Gender Identity Not on file Sexual Orientation Not on file Last Filed Vital Signs Vital Sign Reading Time Taken Comments Blood Pressure 126/74 07/07/2013 11:29 AM EST Pulse 69 07/07/2013 11:29 AM EST Temperature 36.5 C (97.7 F) 05/13/2012 11:22 AM EST Respiratory Rate 16 07/07/2013 11:29 AM EST Oxygen Saturation - - Inhaled Oxygen Concentration - - Weight 66.3 kg (146 lb 1.6 oz) 07/07/2013 11:29 AM EST Height 162.6 cm (5' 4 ) 05/13/2012 11:22 AM EST Body Mass Index 25.08 05/13/2012 11:22 AM EST Plan of Treatment Health Maintenance Due Date Last Done Comments DEXA SCAN DISCUSSION 1955 HEPATITIS C VIRUS SCREENING 1955 TETANUS 1955 TDAP (ADULT) 1974 CERVICAL CANCER SCREENING DISCUSSION 1976 MAMMOGRAM SCREENING DISCUSSION 1995 PNEUMOCOCCAL VACCINE SERIES (1 of 1 - PCV) 2005 ZOSTER (SHINGLES) VACCINE (1 of 2) 2005 COLORECTAL CANCER SCREENING DISCUSSION 04/07/2010 04/07/2009 LIPID SCREENING 07/07/2018 07/07/2013, 04/17, 03/20/2011, Additional history exists COVID-19 VACCINE (1 - 2023-25 season) 2024 INFLUENZA VACCINE (#1) 2025 RSV VACCINE (1 - 1-dose 75+ series) 2030 HEP B VACCINE Aged Out No longer elig ible based on patient's age to complete this topic Procedures Procedure Name Priority Date/Time Associated Diagnosis Comments LIPID PANEL W CALCULATED LDL Routine 07/07/2013 12:41 PM EST Malnutrition following gastrointestinal surgery Hypercholesteremia S/P gastric bypass COLONOSCOPY Routine 04/07/2009 11:30 AM EDT from Last 3 Months or Most Recently Relevant to Health Maintenance Results * LIPID PANEL W CALCULATED LDL (07/07/2013 12:41 PM EST) CHOLESTEROL 186 <200 mg/dL [facility] TRIGLYCERIDES-TR IGE 98 <150 mg/dL [facility] HDL CHOLESTEROL 67 >60.0 mg/dL [facility] LDL CHOLESTEROL, CALCULATED 99 0 - 99 mg/dL [facility] Comment: [<100 mg/dL: Optimal] [100-129 mg/dL: Near Optimal] [130-159 mg/dL: Borderline High] [160-189 mg/dL: High] [>189 mg/dL: Very High] CHOLESTEROL, TOTAL/HDL 2.8 <4.5 [facility] Comment:[<4.5: Low risk] NON-HDL CHOLESTEROL (CHOL-HDL) 119 <130 mg/dL [facility] 07/07/2013 12:4 1 PM EST 07/07/2013 3:26 PM EST Sabina Wolf DRUM STOCK CLERK-AIRPORT OPERATIONS DUTY MANAGER CHEMISTRY ORDERA BLES Final Result Performing Organization Address City/State/[facility] Co de Phone Number [facility] [address] [place] [address] * COLONOSCOPY (04/07/2009 11:30 AM EDT) URL GI Anatomical Region Laterality Modality Other 04/07/2009 11:3 0 AM EDT Narrative 04/07/2009 12:07 PM EDT Gastroenterology Patient Name: Ameena Bae Gender: F Procedure Date: 04/07/2009 11:30 AM Date of : 1955 Age: 53 Admit Type: Outpatient Room: [place] [address] Note Status: Finalized Attending MD: Carlos Alberto Ernst M.D. Procedure: Colonoscopy Indications: Epigastric abdominal pain Providers: Carlos Alberto Ernst M.D. (Doctor), Dana Meehan, RN (Nurse) Referring MD: Natalia Mota AIRPORT OPERATIONS DUTY MANAGER Medicines: Fentanyl IV 100 mcgs, Midazolam IV 5 mgs Complications: No immediate complications Requesting Provider: Procedure: - The risks and benefits of the procedure and the sedation options and risks were discussed with the patient. All questions were answered and informed consent was obtained. - Patient identification and proposed procedure were verified prior to the procedure by the physician. The procedure was verified in the procedure room. - The anesthesia plan was to use moderate sedation/analgesia (conscious sedation). After I obtained informed consent, the scope was passed under direct vision. Throughout the procedure, the patient's blood pressure, pulse, and oxygen saturations were monitored continuously. The Colonoscope was introduced through the anus and advanced to the terminal ileum, with identification of the ileocecal valve. The colonoscopy was performed without difficulty. Findings: The perianal exam was abnormal. Findings include thrombosed internal hemorrhoids and non-thrombosed external hemorrhoids. The colon (entire examined portion) appeared normal. Impression: - Thrombosed internal hemorrhoids. Non-thrombosed external hemorrhoids. - The colon is normal. Recommendation: - The findings and recommendations were discussed with the patient. CPT Code(s): 58044, Colonoscopy, flexible, proximal to splenic flexure; diagnostic, with or without collection of specimen(s) by brushing or washing, with or without colon decompression (separate procedure) ICD Code(s): 455.3, External hemorrhoids without mention of complication 455.1, Internal thrombosed hemorrhoids 789.06, Abdominal pain, epigastric CPT? 2007 [employer]. All Rights Reserved. No fee schedules, basic units, relative values or related listings are included in CPT. [facility] does not directly or indirectly practice medicine or dispense medical services. [facility] assumes no liability for data contained or not contained herein. CPT is a registered trademark of the [employer]. The codes documented in this report are preliminary and upon industrial engineering technician review may be revised to meet current compliance requirements. Attending Participation: Attending MD present for entire case. Carlos Alberto Ernst M.D. Signed Date: 04/07/2009 12:07 PM Number of Addenda: 0 This report has been signed electronically. Note initiated on 04/07/2009 11:32 AM Natalia Mota DRUM STOCK CLERK-AIRPORT OPERATIONS DUTY MANAGER GI/BRONCH PROCEDURE ORD ERABLES Final Result from Last 3 Months or Most Recently Relevant to Health Maintenance [facility] Care Teams Business Support Associate Relationship Specialty Start Date End Date Maurice Lee MD [address] [place] [address] PCP - General 03/04/08
--- OUTSIDE RECORDS SUMMARY | 2025-01-29 08:36 | XMS_ITS | Encounter Summary ---
Author Organization [facility] Address [address] [place] [address] Care Team Providers Care Assembly Stock Supervisor Name Role Phone Maurice Lee MD Primary Care Provider [phone] Source Comments In the event this information is protected by the Federal Confidentiality of Alcohol and Drug AbusePatient Records regulations: The Federal rules restrict any use of the information to criminally investigate or prosecute any alcohol or drug abuse patient.[facility] Encounter Details Date Type Department Care Team (Late st Contact Info) Description 11/13/2024 Telephone [facility] Provider Adult [address] [place] [id number] Leonid Melaraor, TRU [address] [place] [address] Social History Tobacco Use Types Packs/Day Years Used Date Smoking Tobacco: Former Cigarettes 1.5 28 0 06/16/1978 - 06/16/2006 Smokeless Tobacco: Never Alcohol Use Standard Drinks/Week Comments Yes 0 (1 standard drink = 0.6 oz pure alcohol) rare/ when out to dinner will have 1 glass of sangria PHQ-2 Answer Date Recorded PHQ-2 score 0 11/03/2024 Area Deprivation Index Answer Date Bridger rded National Score (1-100), lower number is lower ri sk 65 09/24/2024 State Score (1-10), lower number is lower risk 4 09/24/2024 Data from: https://www.neighborhoodatlas.medicine.[facility]/. Last address used for calculation [address] 09/24/2024 Comments No Sex and Gender Information Value Date Recorded Sex Assigned at Not on file Legal Sex Female 9:50 AM EST Gender Identity Not on file Sexual Orientation Not on file documented as of this encounter Plan of Treatment Upcoming Encounters Date Type Department Care Team (Late st Contact Info) Description 04/18/2025 1:15 PM EST Office Visit Orthopaedics [address] [place] [address] Trevor June DPM [address] [place] [address] 3 month f/u documented as of this encounter Visit Diagnoses Diagnosis S/P foot surgery, left- Primary documented in this encounter Care Teams Assembly Stock Supervisor Relationship Specialty Start Date End Date Maurice Lee MD [address] [place] [address] PCP - General 11/11/01 documented as of this encounter
--- OUTSIDE RECORDS SUMMARY | 2025-01-29 08:36 | XMS_ITS | Encounter Summary ---
Author Organization [facility] Address [address] [facility] [place] [address] Care Team Providers Care Roofing Apprentice Name Role Phone Maurice Lee MD Primary Care Provider [phone] Jr. Kalen Ramírez DO Unavailable [phone] Kaila Zaman DO Unavailable Moody Barbosa MD Unavailable Tony Sapp MD Unavailable [phone] Canelo Villarreal MD Unavailable [phone] Encounter Details Date Type Department Care Team (Late st Contact Info) Description 06/02/2023 Orders Only [facility] [place] [facility] [address] [facility] [place] [address] A, Unknown Practice [address] [place], [place] [address] Social History Tobacco Use Types Packs/Day Years Used Date Smoking Tobacco: Former Cigarettes Q uit: 10/20/2006 Smokeless Tobacco: Never Alcohol Use Standard Drinks/Week Comments Yes 3 (1 standard drink = 0.6 oz pure alcohol) 6+ drinks monthly. Caffine intake: 1-2 cups per day PHQ-2 Answer Date Recorded Patient Health Questionnaire-2 Score 0 11/25/2022 Comments Unknown Sex and Gender Information Value Date Recorded Sex Assigned at Not on file Legal Sex Female 6:53 PM EDT Gender Identity Not on file Sexual Orientation Not on file Occupation Industry Job Start Date Job End Date [employer], Retired Not on file Not on file Not on file documented as of this encounter Plan of Treatment Upcoming Encounters Date Type Department Care Team (Late st Contact Info) Description 01/31/2025 9:45 AM EDT Office Visit [facility] [place] [facility] [address] [facility] [address] [place] [address] 02/04/2025 10:30 AM EDT Office Visit [facility] [place] [facility] [address] [facility] [address] [place] [address] Tony Sapp MD [address] [facility] [address] [phone] documented as of this encounter Procedures Procedure Name Priority Date/Time Associated Diagnosis Comments SCANNED LABS Routine 05/29/2023 2:19 PM EST documented in this encounter Results * SCANNED LABS (05/29/2023 2:19 PM EST) us Unknown Practice A LAB CHG PERFORMABLES Final Re sult documented in this encounter Visit Diagnoses Not on filedocumented in this encounter Care Teams Roofing Apprentice Relationship Specialty Start Date End Date Maurice Lee MD [address] [facility] [address] [place] [address] PCP - General Internal Medicine 11/07/22 Jr. Kalen Ramírez DO [address] [place] [address] [address] [place] [address] Consulting Physician Orthopaedic Surgery 11/25/22 Kaila Zaman DO [address] [email or web address] [address] [place] [address] Consulting Physician Obstetrics and Gynecology 11/25/22 Moody Barbosa MD [address] [place] [address] Referring Physician Gastroenterology 01/05/24 Tony Sapp MD [address] [place] [address] Referring Physician Neurology 01/19/24 Canelo Villarreal MD [address] [place] [address] Referring Physician Rheumatology 01/19/24 Maikel Castillo Optometry 01/19/24 documented as of this encounter
--- OUTSIDE RECORDS SUMMARY | 2025-01-29 08:36 | XMS_ITS | Encounter Summary ---
Author Organization [facility] Address [address] [facility] [place] [address] Care Team Providers Care Telecom Network Manager Name Role Phone Maurice Lee MD Primary Care Provider [phone] Jr. Kalen Ramírez DO Unavailable [phone] Kaila Zaman DO Unavailable [phone] Moody Barbosa MD Unavailable Tony Sapp MD Unavailable [phone] Canelo Villarreal MD Unavailable [phone] Encounter Details Date Type Department Care Team (Late st Contact Info) Description 05/29/2023 Orders Only [facility] [place] [facility] [address] [facility] [address] A, Unknown Practice [address] [place], [place] [phone] Social History Tobacco Use Types Packs/Day Years [...] [address] [facility] [address] [place] [address] 02/04/2025 10:30 AM EDT Office Visit [facility] [place] [facility] [address] [facility] [address] [place] [address] Tony Sapp MD [address] [facility] [address] [phone] documented as of this encounter Procedures Procedure Name Priority Date/Time Associated Diagnosis Comments SCANNED LABS Routine 05/29/2023 11:20 AM EST documented in this encounter Results * SCANNED LABS (05/29/2023 11:20 AM EST) us Unknown Practice A LAB CHG PERFORMABLES Final Re sult documented in this encounter Visit Diagnoses Not on filedocumented in this encounter Care Teams Telecom Network Manager Relationship Specialty Start Date End Date Maurice Lee MD [address] [facility] [address] [place] [address] PCP - General Internal Medicine 11/07/22 Jr. Kalen Ramírez DO [address] [place] [address] [address] [place] [address] Consulting Physician Orthopaedic Surgery 11/25/22 Kaila Zaman DO [address] [facility] [address] [place] [address] Consulting Physician Obstetrics and Gynecology 11/25/22 Moody Barbosa MD [address] [place] [address] Referring Physician Gastroenterology 01/05/24 Tony Sapp MD [address] [place] [address] Referring Physician Neurology 01/19/24 Canelo Villarreal MD [address] [place] [address] Referring Physician Rheumatology 01/19/24 Maikel Castillo Optometry 01/19/24 documented as of this encounter
--- OUTSIDE RECORDS SUMMARY | 2025-01-29 08:36 | XMS_ITS | Encounter Summary ---
Author Organization [facility] Address [address] [facility] [place] [address] Care Team Providers Care Protein Specialist Name Role Phone Maurice Lee MD Primary Care Provider Jr. Kalen Ramírez DO Unavailable [phone] Kaila Zaman DO Unavailable [phone] Moody Barbosa MD Unavailable Tony Sapp MD Unavailable [phone] Canelo Villarreal MD Unavailable [phone] Encounter Details Date Type Department Care Team (Late st Contact Info) Description 04/22/2023 Orders Only [facility] [place] [facility] [address] [facility] [place] [address] A, Unknown Practice [address] [place], [place] [phone] Social History Tobacco Use Types Packs/Day Years [...] file Not on file Not on file COVID-19 Exposure Response Date Recorded In the last 10 days, have cristi u been in contact with someone who was confirmed or suspected to have Coronavirus/COVID-19? No / Unsure 04/23/2023 10:44 AM EST documented as of this encounter Miscellaneous Notes * Result Encounter Note - EMMIE Monsalve - 04/22/2023 4:32 PM EST Please call pt and let her know her mammogram looked good, plan to repeat in 1 year. documented in this encounter Plan of Treatment Upcoming Encounters Date Type Department Care Team (Late st Contact Info) Description 01/31/2025 9:45 AM EDT Office Visit [facility] [place] [facility] [address] [facility] [address] [place] [address] 02/04/2025 10:30 AM EDT Office Visit [facility] [place] [facility] [address] [facility] [address] [place] [address] Tony Sapp MD 53[address] [facility] [address] [address] documented as of this encounter Procedures Procedure Name Priority Date/Time Associated Diagnosis Comments MAMMO 3D,BILATERAL SCREENING MAMMOGRAM WITH TOMOSY Routine 04/22/2023 4:32 PM EST documented in this encounter Results * MAMMO 3D,BILATERAL SCREENING MAMMOGRAM WITH TOMOSY (04/22/2023 4:32 PM EST) Anatomical Region Laterality Modality Radiographic Shanita ging us Unknown Practice A IMG XR PROCEDURES Final Resul t documented in this encounter Visit Diagnoses Not on filedocumented in this encounter Care Teams Protein Specialist Relationship Specialty Start Date End Date Maurice Lee MD [address] [place] [address] PCP - General Internal Medicine 11/07/22 Jr. Kalen Ramírez DO [address] [place] [address] Consulting Physician Orthopaedic Surgery 11/25/22 Kaila Zaman DO [address] [place] [address] Consulting Physician Obstetrics and Gynecology 11/25/22 Moody Barbosa MD [address] [place] [address] Referring Physician Gastroenterology 01/05/24 Tony Sapp MD [address] [place] [address] Referring Physician Neurology 01/19/24 Canelo Villarreal MD [address] [place] [phone] Referring Physician Rheumatology 01/19/24 Maikel Castillo Optometry 01/19/24 documented as of this encounter
--- OUTSIDE RECORDS SUMMARY | 2025-01-29 08:36 | XMS_ITS | Encounter Summary ---
Author Organization [facility] Address [address] [facility] [place] [address] Care Team Providers Care Medical Center Representative Name Role Phone Maurice Lee MD Primary Care Provider [phone] Jr. Kalen Ramírez DO Unavailable Kaila Zaman DO Unavailable Moody Barbosa MD Unavailable Tony Sapp MD Unavailable [phone] Canelo Villarreal MD Unavailable [phone] Encounter Details Date Type Department Care Team (Late st Contact Info) Description 03/31/2023 [facility] [address] [facility] [address] [place] [address] Maurice Lee MD [address] [facility] 230 [place] [address] Social History Tobacco Use Types Packs/Day Years Used Date Smoking Tobacco: Former Cigarettes Q uit: 10/20/2006 Smokeless Tobacco: Never Tobacco Cessation:Counseling Given: Not Answered Alcohol Use Standard Drinks/Week Comments Yes 3 [...] Recorded In the last 10 days, have yo u been in contact with someone who was confirmed or suspected to have Coronavirus/COVID-19? No / Unsure 04/02/2023 8:07 PM EDT documented as of this encounter Plan of Treatment Upcoming Encounters Date Type Department Care Team (Late st Contact Info) Description 01/31/2025 9:45 AM EDT Office Visit [facility] [place] [facility] [address] [facility] 230 [place] [address] 02/04/2025 10:30 AM EDT Office Visit [facility] [address] [facility] [address] [place] [address] Tony Sapp MD 5[address] [facility] [address] [address] documented as of this encounter Visit Diagnoses Not on filedocumented in this encounter Care Teams Medical Center Representative Relationship Specialty Start Date End Date Maurice Lee MD [address] [facility] 230 [place] [address] PCP - General Internal Medicine 11/07/22 Jr. Kalen Ramírez DO [address] [place] [address] 150 [place] [address] Consulting Physician Orthopaedic Surgery 11/25/22 Kaila Zaman DO [address] [facility] [address] [place] [address] Consulting Physician Obstetrics and Gynecology 11/25/22 Moody Barbosa MD [address] [facility] 210 [place] [address] Referring Physician Gastroenterology 01/05/24 Tony Sapp MD [address] [place] [address] Referring Physician Neurology 01/19/24 Canelo Villarreal MD [address] [facility] [address] [place] [address] Referring Physician Rheumatology 01/19/24 Maikel Castillo Optometry 01/19/24 documented as of this encounter
--- OUTSIDE RECORDS SUMMARY | 2025-01-29 08:36 | XMS_ITS | Encounter Summary ---
Author Organization [facility] Address [address] [facility] [place] [address] Care Team Providers Care Vamp Marker Name Role Phone Maurice Lee MD Primary Care Provider [phone] Jr. Kalen Ramírez DO Unavailable [phone] Kaila Zaman DO Unavailable [phone] Moody Barbosa MD Unavailable Tony Sapp MD Unavailable [phone] Canelo Villarreal MD Unavailable [phone] Reason for Visit * Reason Onset Date Comments Med Refill 01/25/2025 Encounter Details Date Type Department Care Team (Late st Contact Info) Description 01/25/[address] [facility] Internal Medicine [address] [facility] 230 [place] [address] Amber Crowder LPN Moderate major depression (HCC) Social History Tobacco Use Types Packs/Day Years Used Date Smoking Tobacco: Former Cigarettes 1.5 15 Q uit: 10/20/2006 Smokeless Tobacco: Never Alcohol Use Standard Drinks/Week Comments Not Currently 3 (1 standard drink = 0.6 oz pure alcohol) 6+ drinks monthly. Caffine intake: 1-2 cups per day PHQ-2 Answer Date Recorded Patient Health Questionnaire-2 Score 6 01/14/2025 Comments Unknown Sex and Gender Information Value Date Recorded Sex Assigned at Not on file Legal Sex Female 6:53 PM EDT Gender Identity Not on file Sexual Orientation Not on file Occupation Industry Job Start Date Job End Date [employer], Retired Not on file Not on file Not on file documented as of this encounter Miscellaneous Notes * Telephone Encounter - Amber Crowder LPN - 01/25/2025 9:07 AM EDT Pt called saying she can't find her Abilify. ( I don't think she ever picked up the new dose and the pharmacy isn't open to ask) new RX sent to [facility] documented in this encounter Plan of Treatment Upcoming Encounters Date Type Department Care Team (Late st Contact Info) Description 01/31/2025 9:45 AM EDT Office Visit [facility] [place] [facility] [address] [email or web address] 230 [place] [address] 02/04/2025 10:30 AM EDT [facility] [address] [facility] [address] [place] [address] Tony Sapp MD [address] [facility] [address] [address] documented as of this encounter Visit Diagnoses Diagnosis Moderate major depression (HCC) Major depressive disorder, single episode, moderate documented in this encounter Care Teams Vamp Marker Relationship Specialty Start Date End Date Maurice Lee MD [address] [facility] 230 [place] [address] PCP - General Internal Medicine 11/07/22 Jr. Kalen Ramírez DO [address] [place] [address] 150 [place] [address] Consulting Physician Orthopaedic Surgery 11/25/22 Kaila Zaman DO [address] [facility] 210 [place] [address] Consulting Physician Obstetrics and Gynecology 11/25/22 Moody Barbosa MD [address] [place] [address] [place] [address] Referring Physician Gastroenterology 01/05/24 Tony Sapp MD [address] [place] [address] Referring Physician Neurology 01/19/24 Canelo Villarreal MD [address] [facility] [address] [place] [address] Referring Physician Rheumatology 01/19/24 Maikel Castillo Optometry 01/19/24 documented as of this encounter
--- OUTSIDE RECORDS SUMMARY | 2025-01-29 08:36 | XMS_ITS | Encounter Summary ---
Author Organization [facility] Address [address] [place] [address] Care Team Providers Care Log Handling Equipment Operator Name Role Phone Maurice Lee MD Primary Care Provider [phone] Source Comments In the event this information is protected by the Federal Confidentiality of Alcohol and Drug AbusePatient Records regulations: The Federal rules restrict any use of the information to criminally investigate or prosecute any alcohol or drug abuse patient.[facility] Reason for Visit * Reason Comments Radiology XR Encounter Details Date Type Department Care Team (Late st Contact Info) Description 02/26/2022 Radiology Radiology [address] [place] [address] Ryan Workman, (R) Radiology XR Social History Tobacco Use Types Packs/Day Years Used Date Smoking Tobacco: Former Cigarettes 1.5 28 0 06/16/1978 - 06/16/2006 Smokeless Tobacco: Never Alcohol Use Standard Drinks/Week Comments Yes 0 (1 standard drink = 0.6 oz pur e alcohol) Comments No Sex and Gender Information Value Date Recorded Sex Assigned at Not on file Legal Sex Female 9:50 AM EST Gender Identity Not on file Sexual Orientation Not on file COVID-19 Exposure Response Date Recorded In the last 10 days, have yo u been in contact with someone who was confirmed or suspected to have Coronavirus/COVID-19? No / Unsure 02/26/2022 10:16 AM EDT documented as of this encounter Progress Notes * Ryan Workman RT(R) - 02/26/2022 10:58 AM EDT Radiology Service Progress Note PATIENT NAME: Danyell Bae DATE OF SERVICE: February 26, 2022 TIME: 10:58 AM PATIENT IDENTITY VERIFICATION COMPLETED USING TWO (2) IDENTIFIERS: Name and Date of confirmedby patient verbally. FALL SCREENING: Has the patient had 2 falls in the last year or 1 fall with injury or currently using an Ambulatory Assistive Device (Walker, Cane, Wheelchair, Crutches, etc.)? No PATIENT GENDER DATA: Female. status: : No status: NO. PATIENT RELEVANT IMPLANT DATA REVIEWED: Not Applicable RADIOLOGY DEPARTMENT: General X-ray: Exam(s) Completed: Upper Extremity X- Ray(s): Shoulder, AP / TRUE AP bilateral and Hand, bilateral PERIPHERAL IV DATA: Not applicable SIGNED BY: RT Anyi(R) February 26, 2022 10:58 AM documented in this encounter Plan of Treatment Upcoming Encounters Date Type Department Care Team (Late st Contact Info) Description 04/18/2025 1:15 PM EST Office Visit Orthopaedics [address] [place] [address] Trevor June DPM [address] [place] [address] 3 month f/u documented as of this encounter Visit Diagnoses Not on filedocumented in this encounter Care Teams Log Handling Equipment Operator Relationship Specialty Start Date End Date Maurice Lee MD [address] [facility] [address] [place] [address] PCP - General 11/11/01 documented as of this encounter
--- OUTSIDE RECORDS SUMMARY | 2025-01-29 08:36 | XMS_ITS | Encounter Summary ---
Author Organization [facility] Address [address] [facility] [place] [address] Care Team Providers Care Electrical Engineering Teacher Name Role Phone Maurice Lee MD Primary Care Provider [phone] Jr. Kalen Ramírez DO Unavailable [phone] Kaila Zaman DO Unavailable Moody Barbosa MD Unavailable Tony Sapp MD Unavailable [phone] Canelo Villarreal MD Unavailable [phone] Encounter Details Date Type Department Care Team (Late st Contact Info) Description 12/24/2023 Orders Only [facility] [address] [facility] [place] [address] A, Unknown Practice [address] [place], [place] [id number] Social History Tobacco Use Types Packs/Day Years [...] [place] [facility] [address] [place] [address] [place] [address] 02/04/2025 10:30 AM EDT Office Visit [facility] [place] [facility] [address] [place] [address] [place] [address] Tony Sapp MD [address] [facility] [address] [id number] documented as of this encounter Procedures Procedure Name Priority Date/Time Associated Diagnosis Comments ESOPHAGOSCOPY Routine 12/24/2023 1:23 PM EDT documented in this encounter Results * Esophagoscopy (12/24/2023 1:23 PM EDT) Anatomical Region Laterality Modality Endoscopy us Unknown Practice A ENDOSCOPY PROCEDURE ORDERABLE S Final Result documented in this encounter Visit Diagnoses Not on filedocumented in this encounter Care Teams Electrical Engineering Teacher Relationship Specialty Start Date End Date Maurice Lee MD [address] [place] [address] [place] [address] PCP - General Internal Medicine 11/07/22 Jr. Kalen Ramírez DO [address] [facility] 150 [place] [address] Consulting Physician Orthopaedic Surgery 11/25/22 Kaila Zaman DO [address] [place] [address] [place] [address] Consulting Physician Obstetrics and Gynecology 11/25/22 Moody Barbosa MD [address] [place] [address] [place] [address] Referring Physician Gastroenterology 01/05/24 Tony Sapp MD [address] [place] [address] Referring Physician Neurology 01/19/24 Canelo Villarreal MD [address] [facility] [address] [place] [address] Referring Physician Rheumatology 01/19/24 Maikel Castillo Optometry 01/19/24 documented as of this encounter
--- OUTSIDE RECORDS SUMMARY | 2025-01-29 08:36 | XMS_ITS | Encounter Summary ---
Author Organization [employer] Address [id number] [address] [place] [address] Care Team Providers Care Tower Excavator Operator Name Role Phone Maurice Lee MD Primary Care Provider [phone] Reason for Visit * Reason Onset Date Comments Med Refill 02/17/2024 Encounter Details Date Type Department Care Team (Late st Contact Info) Description 02/17/2024 Refill [facility] Orthopaedics [address] [place] [address] Joselo Voss CMA 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 (Primary Dx) Social History Tobacco Use Types Packs/Day Years Used Date Smoking Tobacco: Former Cigarettes Smokeless Tobacco: Never Comments:quit 12 years Alcohol Use Standard Drinks/Week Comments Yes 0 (1 standard drink = 0.6 oz pur e alcohol) weekly Housing Instability Answer Date Recorde d Are you worried or concerned that in the next two months you may not have stable housing that you own, rent or stay in as a part of a household? No 07/17/2022 Childcare Answer Date Recorded Childcare Unknown 11/25/2018 Employment Answer Date Recorded Employment Unknown 11/25/2018 Hunger Screening Answer Date Recorded Within the past 12 months we worried whether our food would run out before we got money to buy more. Never True 07/17/2022 Within the past 12 months th e food we bought just didn't last and we didn't have money to get more. Never True 07/17/2022 Purpose - Life Answer Date Recorded Purpose and direction in life Unknown Comments No Sex and Gender Information Value Date Recorded Sex Assigned at Not on file Legal Sex Female 3:25 PM EDT Gender Identity Not on file Sexual Orientation Not on file documented as of this encounter Miscellaneous Notes * Telephone Encounter - DION Rivera - 02/17/2024 9:57 AM EDT Already filled documented in this encounter Plan of Treatment Not on file documented as of this encounter Visit Diagnoses Diagnosis 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- Primary documented in this encounter Care Teams Tower Excavator Operator Relationship Specialty Start Date End Date Maurice Lee MD [address] [place] [address], [address] [place] [address] PCP - General 05/07/16 documented as of this encounter
--- OUTSIDE RECORDS SUMMARY | 2025-01-29 08:36 | XMS_ITS ---
Author Organization [employer] Address [id number] [address] [place] [address] Care Team Providers Care Attendant Child Activity Name Role Phone Maurice Lee MD Primary Care Provider [phone] Active Problems Problem Noted Date Diagnosed Date Osteoarthritis of hip 01/07/2025 Osteoarthritis 01/07/2025 Osteoarthritis 01/07/2025 Osteoarthritis of hip 01/07/2025 Type 2 diabetes mellitus 01/07/2025 Overview (01/07/2025): Type II Hyperlipidemia 01/07/2025 Hypercholesteremia 01/07/2025 Endometriosis 01/07/2025 Depression 01/07/2025 Arthralgia of hip 01/07/2025 Aftercare following joint replacement surgery Stroke 07/22/2024 Paroxysmal SVT (supraventricular tachycardia) Mixed hyperlipidemia 07/22/2024 Abnormal EKG 07/22/2024 Cerebrovascular accident (CVA), unspecified mech anism 04/24/2024 Acute pain of right shoulder 04/19/2024 Acute pain of left shoulder 04/19/2024 Globus sensation 02/04/2024 Dysphagia 02/04/2024 Dyspepsia 02/04/2024 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 02/04/2024 Other low back pain 10/06/2023 Marginal ulcer 10/06/2023 Degenerative joint disease of sacroiliac joint 0 10/06/2023 Pure hypercholesterolemia 04/01/2023 Degenerative disc disease, lumbar 03/06/2023 Aftercare following left hip joint replacement s urgery 03/06/2023 Lumbosacral radiculopathy at L3 03/06/2023 Multilevel degenerative disc disease 10/21/2022 Moderate major depression 10/21/2022 Generalized anxiety disorder 10/21/2022 Age-related osteoporosis wit hout current pathological fracture 10/21/2022 Status post total hip replacement, left 09/04/19 23 Arthritis 03/28/2022 Primary osteoarthritis of left knee 03/28/2022 PMR (polymyalgia rheumatica) 02/27/2022 DDD (degenerative disc disease), lumbosacral Spinal stenosis of lumbosacral region 02/27/2022 Primary osteoarthritis involving multiple joints 02/27/2022 Chondrocalcinosis of left knee 02/27/2022 Overview (01/07/2025): Outside x-rays 2017 Polymyalgia rheumatica 06/16/2017 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 Past Treatment and Therapy Plans No past plan information found. Lifetime Dose Tracking * Chemical Lifetime Dose Automatic Entry Manual Entr y Fluoroscopy 698 mGy 0 mGy 698 mGy
--- OUTSIDE RECORDS SUMMARY | 2025-01-29 08:36 | XMS_ITS | Encounter Summary ---
Author Organization [facility] Address [address] [facility] [place] [address] Care Team Providers Care Cupola Patcher Name Role Phone Maurice Lee MD Primary Care Provider [phone] Jr. Kalen Ramírez DO Unavailable [phone] Kaila Zaman DO Unavailable [phone] Moody Barbosa MD Unavailable Tony Sapp MD Unavailable [phone] Canelo Villarreal MD Unavailable [phone] Encounter Details Date Type Department Care Team (Late st Contact Info) Description 11/20/2023 Orders Only [facility] [place] [facility] [address] [facility] [place] [address] A, Unknown Practice [address] [place], [place] [id number] Social History Tobacco Use Types Packs/Day Years [...] Medicine [address] [place] [address] [place] [address] 02/04/2025 10:30 AM EDT Office Visit [facility] [place] [facility] [address] [place] [address] [place] [address] Tony Sapp MD [address] [facility] [address] [address] documented as of this encounter Procedures Procedure Name Priority Date/Time Associated Diagnosis Comments SED RATE BY MODIFIED WESTERGREN Routine 11/20/2023 9:51 AM EDT C-REACTIVE PROTEIN Routine 11/20/2023 9:51 AM EDT documented in this encounter Results * C-reactive protein (11/20/2023 9:51 AM EDT) Blood Venous blood specimen / Unknown Unknown Practice A LAB BLOOD ORDERABLES Final Re sult * Sedimentation rate, automated (11/20/2023 9:51 AM EDT) Blood Venous blood specimen / Unknown us Unknown Practice A LAB BLOOD ORDERABLES Final Re sult documented in this encounter Visit Diagnoses Not on filedocumented in this encounter Care Teams Cupola Patcher Relationship Specialty Start Date End Date Maurice Lee MD [address] [place] [address] [place] [address] PCP - General Internal Medicine 11/07/22 Jr. Kalen Ramírez DO [address] [place] [address] [address] [place] [address] Consulting Physician Orthopaedic Surgery 11/25/22 Kaila Zaman DO [address] [place] [address] [place] [address] Consulting Physician Obstetrics and Gynecology 11/25/22 Moody Barbosa MD [address] [place] [address] [place] [address] Referring Physician Gastroenterology 01/05/24 Tony Sapp MD [address] [place] [address] Referring Physician Neurology 01/19/24 Canelo Villarreal MD [address] [place] [address] Referring Physician Rheumatology 01/19/24 Maikel Castillo Optometry 01/19/24 documented as of this encounter
--- OUTSIDE RECORDS SUMMARY | 2025-01-29 08:36 | XMS_ITS | Clinical Summary ---
Author Organization [employer] tem Address [id number] [address] [place] [address] Care Team Providers Care Cane Flume Watchman Name Role Phone Maurice Lee MD Primary Care Provider [phone] Allergies No known active allergies Medications buPROPion XL (WELLBUTRIN XL) 300 mg 24 hr tabletIndicatio ns:anxiety with depression Take 1 tablet (300 mg total) by mouth in the morning. Indications: anxiousness associated with depression. Active CALCIUM CARBONATE/VITAM IN D3 (CALTRATE 600 + D ORAL) Take by mouth. A ctive CYANOCOBALAMIN, VITAMIN B-12, (VITAMIN B-12 ORAL) Take by mouth. Activ e CHOLECALCIFEROL , VITAMIN D3, (VITAMIN D3 ORAL) Take by mouth. Activ e gabapentin (NEURONTIN) 300 mg capsule Take 1 capsule (300 mg total) by mouth nightly. 2 Active ALPRAZolam (XANAX) 0.25 mg tabletIndicatio ns:anxiety Take 1 tablet (0.25 mg total) by mouth every 8 (eight) hours as needed Indications: anxious. 2 Active omeprazole (PriLOSEC) 40 mg capsule Take 1 capsule (40 mg total) by mouth in the morning and 1 capsule (40 mg total) before bedtime. Active CEPHalexin (KEFLEX) 500 mg capsuleIndicati ons: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,Afterca re following right hip joint replacement surgery Take 4 capsules one hour prior to dental procedure 12 capsule 2 5 01/15/20 Active Problems Problem Noted Date Diagnosed Date [...] Status post total hip replacement, left 09/04/19 Arthritis 03/28/2022 Primary osteoarthritis of left knee [...] 12/14 Enthesopathy of hip region 12/30/2006 Anxiety Encounters Date Type Department Care Team Description 01/27/2025 9:30 AM EDT Telemedicine [facility] Neurology, A Department of [facility] [address] [place] [address] 01/07/2025 Refill [facility] Orthopaedics [address] [place] [address] Umm Otoole 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 (Primary Dx); Aftercare following right hip joint replacement surgery 12/01/2024 Telephone [facility] Neu[facility], A Department of [facility] [address] [place] [phone] Irene Ambrocio RN from Last 3 Months Immunizations Immunization Administration Dates Next Due Covid-19,mrna, Lnp-s, Pf, 50 mcg/0.5ml 12+ Seasonal 04/07/2024 Influenza (IM) Preservative Free 04/20/2015 Influenza High Dose Preservative Free IM 021 Influenza Split Preservative Free ID 04/28/2017 Influenza Vaccine, Quadrivalent, Adjuvanted 03/17 Influenza, Im Trivalent Preservative 04/12/2016, 04/16/2014,04/14/2013 Influenza, Injectable, Quadrivalent 04/24/2019,1 ,03/21/2017 Influenza, Injectable, quadrivalent (PF) 022,04/10/2020 Influenza, Trivalent, Adjuvanted 04/07/2024 Pneumococcal Conjugate 20-valent 11/25/2022 Pneumococcal Polysaccharide 07/02/2010, 1 RSV, bivalent, protein subun it RSVpreF, diluent reconstituted, 0.5 mL, PF 04/07/2024 Zoster Vaccine Recombinant 04/18/2023,02/14/2023 Family History Medical History Relation Name Comments Cancer Brother 1 Cancer Brother 2 Lung cancer Father Anesthesia problems Neg Hx Relation Name Status Comments Brother 1 Brother 2 Father Social History Tobacco Use Types Packs/Day Years Used Date Smoking Tobacco: Former Cigarettes Smokeless Tobacco: Never Tobacco Cessation:Counseling Given: Not Answered Comments:quit 12 years Alcohol Use Standard Drinks/Week Comments Not Currently 0 (1 standard drink = 0.6 oz pur e alcohol) weekly [employer] Answer Date Recorded In the past 12 months has th e [employer], gas, oil, or water [employer] threatened to shut off services in your [...] Sign Reading Time Taken Comments Blood Pressure 161/69 08/05/2024 10:37 AM EST Pulse 78 08/05/2024 10:37 AM EST Temperature 37.1 C (98.8 F) 04/29/2024 3:20 PM EST Respiratory Rate 17 04/29/2024 8:03 AM EST Oxygen Saturation 97% 04/29/2024 3:20 PM EST Inhaled Oxygen Concentration - - Weight 63 kg (139 lb) 08/05/2024 10:37 AM EST Height 162.6 cm (5' 4 ) 04/26/2024 12:00 AM EST Body Mass Index 23.86 04/26/2024 12:00 AM EST Plan of Treatment Health Maintenance Due Date Last Done Comments Diabetic Ophthalmology Exam 1955 Statin Use: Cardiovascular 1955 Statin Use: Diabetic 1955 Diabetic Foot Exam 1973 DTaP,Tdap and Td Vaccines (1 - Tdap) 1974 Fall Risk Screening 2020 COVID-19 Vaccine (2023-2 5 season) 2024 04/07/2024, 04/07/2023, 04/22/2022, Additional history exists Influenza Vaccine 02/14/2025 04/07/2024, , 04/01/2022, Additional history exists Tobacco Screening 04/24/2025 04/24/2024 Adult BMI Screening 08/05/2025 08/05/2024 Depression Screening 08/05/2025 08/05/2024 Zoster (Shingles) Vaccine Completed 04/18/2023, 06/2022 Goals Goal Patient Goal Type Associated Problems Recent Progress Patient-Stated? Author <enter goal here> General Yes Romeo Valentino RN Note: Evaluation of progress towards goal: Patient will discharge to inpatient rehab. - Romeo Valentino RN 04/25/24 10:18 AM Medical Devices Implanted Type Area Yield Clerk Device Identifier Shelf Expiration Date Model / Serial / Lot Bearing Hip 38mm 28mm C Vivacit-E Lum Strl Lf - [id number] Implanted:Qt y: 1 on 07/17/2022 by Oneil Yen MD at [facility] Bearing Left: Hip [employer] 02/03/2027 [id number] / / [id number] Shell Actb 48mm Hip Lmt 3 Hl Fin Por G7 C Hmsphr Os - [id number] Implanted:Qt y: 1 on 07/17/2022 by Oneil Yen MD at [facility] Orthopedic Implant Left: Hip [employer] [id number] 04/24/2032 [id number] / / [id number] Liner Actb 38mm C Cocr 2 Mbl G7 Hip - [id number] Implanted:Qt y: 1 on 07/17/2022 by Oneil Yen MD at [facility] Orthopedic Implant Left: Hip [employer] [id number] 05/20/2032 [id number] / / [id number] Stem Fem 142mm 11mm 133d Hi Os Tpr Tprlk Pps Ti Hip Prft Rdc - [id number] Implanted:Qt y: 1 on 07/17/2022 by Oneil Yen MD at [facility] Orthopedic Implant Left: Hip [employer] [id number] 04/08/2032 [id number] / / [id number] Sleeve Hip -3mm Os Tpr G7 Blx D Opt Ti Centering Ty 1 Rpl [id number] - [id number] Implanted:Qt y: 1 on 07/17/2022 by Oneil Yen MD at [facility] Orthopedic Implant Left: Hip [employer] 10/04/2031 [id number] / / [id number] Head Fem 28mm Blx D Opt Hip Rpl 650-8235 - [id number] Implanted:Qt y: 1 on 07/17/2022 by Oneil Yen MD at [facility] Other Implant Left: Hip [employer] 02/14/2032 [id number] / / [id number] Insurance [employer] MEDICARE Advance Directives * Full Code (Latest Code Status on File) Date Activated Date Inactivated Comments 07/15/2022 2:13 PM 07/17/2022 6:42 PM Care Teams Cane Flume Watchman Relationship Specialty Start Date End Date Maurice Lee MD [address] [place] [address], [address] [place] [address] PCP - General 05/07/16
--- OUTSIDE RECORDS SUMMARY | 2025-01-29 08:36 | XMS_ITS | Clinical Summary ---
Author Organization [facility] Address [address] [place] [id number] Care Team Providers Care Clinical Support Specialist Name Role Phone Maurice Lee MD Primary Care Provider [phone] Allergies No known active allergies Medications calcium carbonate/chely min d3(CALCIUM 600 + D(3) 600 MG (1,500)-200 UNIT TAB) Take one(1) tablet twice daily. 0 02/17/20 10 Active CYANOCOBALAMIN (VITAMIN B-12) 1,000 MCG SUBLINGUAL TAB Take one(1) tablet daily. 0 02/17/20 10 Active ALPRAZolam (XANAX) 0.25 mg tablet Take 0.25 mg by mouth three times daily as needed. 01/30/20 22 Active folic acid 1 mg tablet 12/23/19 22 Active ascorbic acid/bioflavon oids (TOMMY C ORAL) Take by mouth. Activ e vit C/E/Zn/coppr/l utein/zeaxan (PRESERVISION AREDS-2 ORAL) Take by mouth. A ctive PNV Comb No.59/Iron/FA/ DHA (-DHA ORAL) Take by mouth. Activ e apixaban (ELIQUIS) 5 mg tab(s) Take 5 mg by mouth two times a day. Active Cholecalcifero l, Vitamin D3, 25 mcg (1,000 unit) cap Take 1,000 Units by mouth once daily. Active ezetimibe (ZETIA) 10 mg tablet Take 10 mg by mouth once daily. 06/03/20 24 Active omeprazole (PRILOSEC) 40 mg capsule Take 40 mg by mouth two times a day. Active buPROPion XL (WELLBUTRIN XL) 300 mg 24 hr tablet Take 300 mg by mouth. 02/17/20 24 Active denosumab (PROLIA) 60 mg/mL Inject 60 mg subcutaneously once every 6 months. Active cyclobenzaprin e (FLEXERIL) 10 mg tablet TAKE 1 TABLET BY MOUTH THREE TIMES A DAY NEEDED FOR MUSCLE SPASM 90 tablet 12/30/19 25 025 Active Problems Problem Noted Date Diagnosed Date Hemiparesis of left nondominant side 01/11/2025 Left foot drop 01/11/2025 Foot contracture, left 01/11/2025 Difficulty walking 01/11/2025 Former smoker 07/22/2024 Assessment & Plan (10/05/2024 11:06 AM EDT): Assessment: 1.5 packs/day, for 28 years. Quit 06/16/2006. 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 PMR (polymyalgia rheumatica) 02/27/2022 Chondrocalcinosis of left knee 02/27/2022 Overview (02/27/2022): Outside x-rays 2016 Primary osteoarthritis involving multiple joints 02/27/2022 DDD (degenerative disc disease), lumbosacral Spinal stenosis of lumbosacral region 02/27/2022 History of gastric bypass 12/31/2021 Assessment & Plan (10/06/2024 8:39 AM EDT): Assessment: History of Gastric Bypass in 2007 Body mass index is 24.22 kg/m . Severe vaginal dysplasia 01/23/2010 Tear of lateral cartilage or meniscus of knee, c urrent 03/17/2007 Enthesopathy of hip region 12/30/2006 OA (OSTEOARTHRITIS) LOCALIZED, PRIMARY( [place]) 12/30/2006 Endometriosis Arthritis Hyperlipidemia Depression Assessment & Plan (10/05/2024 11:28 AM EDT): Assessment: stable on medication Denies any suicidal ideation Diabetes Overview (02/16/2010): Type II Resolved Problems Problem Noted Date Diagnosed Date Resolved Date Vaginal dysplasia 07/12/2010 Encounters Date Type Department Care Team Description 01/11/2025 1:15 PM EDT Office Visit Podiatry [address] [place] [address] Trevor June DPM History of CVA (cerebrovascular accident) (Primary Dx); Left foot drop; Foot contracture, left; Hemiparesis of left nondominant side, unspecified hemiparesis etiology (HCC); Difficulty walking 01/11/2025 Travel 12/21/2024 Refill Orthopaedics [address] [place] [address] Trevor June DPM Refill Request 11/30/2024 3:15 PM EDT Office Visit Podiatry [address] [place] [address] Trevor June DPM Post-operative state (Primary Dx) 11/30/2024 3:00 PM EDT Office Visit Orthopaedics [address] [place] [address] Post-operative state (Primary Dx) 11/28/2024 Get Medical Advice Orthopaedics [address] [place] [phone] Trevor June DPM Pain 11/25/2024 1:15 PM EDT Office Visit Orthopaedics [address] [place] [phone] Trevor June DPM Post-operative state (Primary Dx) 11/25/2024 1:13 PM EDT - 11/25/2024 11:59 PM EDT Hospital Encounter Radiology [address] [place] [address] Post-operative state [Z98.890] Discharge Disposition: Home 11/25/2024 1:00 PM EDT Office Visit Orthopaedics [address] [place] [phone] Post-operative state (Primary Dx) 11/25/2024 Radiology Radiology [address] [place] [address] Charleen Berry, RT(R) Radiology XR 11/25/2024 Orders Only Orthopaedics [address] [place] [address] Trevor June DPM Post-operative state (Primary Dx) 11/13/2024 Telephone [facility] Provider Adult [address] [place] [address] Dustin Melara DPM 11/11/2024 Refill Orthopaedics [address] [place] [address] Trevor June DPM Refill Request 11/10/2024 3:00 PM EDT Office Visit Orthopaedics [address] [place] [address] Sobeida, Cast Tech Post-operative state (Primary Dx) 11/10/2024 3:00 PM EDT Office Visit Orthopaedics [address] [place] [address] Trevor June DPM Post-operative state (Primary Dx) 11/10/2024 Travel 11/03/2024 Travel from Last 3 Months Family History Medical History Relation Comments Cancer Brother Squamous cell sk in cancer Cancer Father Lung cancer Relation Status Comments Brother Father Social History Tobacco Use Types Packs/Day Years Used Date Smoking Tobacco: Former Cigarettes 1.5 28 0 06/16/1978 - 06/16/2006 Smokeless Tobacco: Never Tobacco Cessation:Counseling Given: Not Answered Alcohol Use Standard Drinks/Week Comments Yes 0 [...] is lower risk 4 09/24/2024 Data from: https://www.neighborhoodatlas.medicine.[facility].edu/. Last address used for calculation [address] 09/24/2024 Comments No Sex and Gender Information Value Date Recorded Sex Assigned at Not on file Legal Sex Female 9:50 AM EST Gender Identity Not on file Sexual Orientation Not on file Last Filed Vital Signs Vital Sign Reading Time Taken Comments Blood Pressure 128/59 10/20/2024 2:40 PM EDT Pulse 91 10/20/2024 2:40 PM EDT Temperature 36.7 C (98 F) 10/20/2024 2:06 PM EDT Respiratory Rate 16 10/20/2024 2:06 PM EDT Oxygen Saturation 96% 10/20/2024 2:4 0 PM EDT Inhaled Oxygen Concentration - - Weight 64 kg (141 lb 1.5 oz) 10/06/2024 8:05 AM EDT actual weight Height 162.6 cm (5' 4 ) 10/06/2024 8:05 AM EDT Body Mass Index 24.22 10/06/2024 8:05 AM EDT Plan of Treatment Upcoming Encounters Date Type Department Care Team (Late st Contact Info) Description 04/18/2025 1:15 PM EST Office Visit Orthopaedics [address] [place] [address] Trevor June DPM [address] [place] [address] 3 month f/u Health Maintenance Due Date Last Done Comments Diabetic Foot Exam 1965 Dilated Retinal Exam 1965 Urine Albumin:Creatinine Ratio 1965 Annual PCP Team Chronic Dise ase Visit 1973 Anxiety Screening 1973 LDL Cholesterol 1973 DTaP,Tdap,Td Vaccine (1 - Tdap) 1974 CT Colonography 2000 Cologuard (FIT-DNA) 2000 Fecal Occult Blood 2000 Sigmoidoscopy 2000 Colonoscopy 12/01/2019 11/30/2018 Colorectal Cancer Screening 12/01/2019 Mammogram Screening 02/19/2023 02/19/2022, 10/18/2020, 07/19/2019, Additional history exists Advance Directive Discussion 06/16/2024 Medicare Advantage Annual Wellness Visit 06/16/2024 HbA1C 10/22/2024 04/24/2024 Influenza Vaccine (#1) 2025 4, 04/07/2023, 04/01/2022, Additional history exists Cervical Cancer Screening Discontinued 2011, 02/15/2011, 08/31/2010 Hepatitis C Screening Completed 02/26/2022, 022 Pneumococcal Vaccine: 50+ Completed 2022, 07/02/2010, 04/09/2001 Shingrix Vaccine Completed 04/18/2023, 02/14/2023 Bone Density Screening Completed , 07/23/2021, 02/02/2019 RSV Vaccine Completed 04/07/2024 Medical Devices Implanted Type Area Senior Business Process Analyst Device Identifier Shelf Expiration Date Model / Serial / Lot Tenodensis Graft Sizing Kit [id number] Implanted:Qty: 1 on 10/20/2024 by Trevor June DPM at [facility] Implant Left: Bone - Foot [employer] 05/15/2029 [id number] / [id number] / [id number] Fhl Implant System 6.25mm Implanted:Qty: 1 on 10/20/2024 by Trevor June DPM at [facility] Implant Left: Bone - Foot [employer] 04/26/2028 [id number]- CP / [id number]- CP / [id number] Procedures Procedure Name Priority Date/Time Associated Diagnosis Comments PHOTO FOOT LEFT DORSAL 01/11/2025 1:59 PM EDT PHOTO FOOT LEFT PLANTAR 11/30/2024 3:18 PM EDT PHOTO ANKLE LEFT MEDIAL 11/30/2024 3:17 PM EDT PHOTO ANKLE LEFT LATERAL 11/30/2024 3:16 PM EDT PHOTO ANKLE LEFT ANTERIOR 11/30/2024 3:16 PM EDT XR FOOT GENERAL 3V AP/LAT/OBL LEFT Routine 11/25/2024 1:28 PM EDT Post-operative state HEPATITIS C ANTIBODY IA WITH CONFIRMATION Routine 02/26/2022 10:27 AM EDT PMR (polymyalgia rheumatica) (HCC) Pain of both shoulder joints Hip pain, bilateral Bilateral hand pain PAP FLUID VAGINAL VAULT DIAGNOSTIC Routine 09/25/2011 1:35 PM EDT Severe vaginal dysplasia Lichen sclerosus from Last 3 Months or Most Recently Relevant to Health Maintenance Results * PHOTO FOOT LEFT DORSAL (01/11/2025 1:59 PM EDT) Anatomical Region Laterality Modality Other 01/11/2025 1:59 PM EDT [facility] Provider IMAGES Final Result * PHOTO FOOT LEFT PLANTAR (11/30/2024 3:18 PM EDT) Anatomical Region Laterality Modality Other 11/30/2024 3:18 PM EDT [facility] Provider IMAGES Final Result * PHOTO ANKLE LEFT MEDIAL (11/30/2024 3:17 PM EDT) Anatomical Region Laterality Modality Other 11/30/2024 3:17 PM EDT [facility] Provider IMAGES Final Result * PHOTO ANKLE LEFT LATERAL (11/30/2024 3:16 PM EDT) Anatomical Region Laterality Modality Other 11/30/2024 3:16 PM EDT [facility] Provider IMAGES Final Result * PHOTO ANKLE LEFT ANTERIOR (11/30/2024 3:16 PM EDT) Anatomical Region Laterality Modality Other 11/30/2024 3:16 PM EDT [facility] Provider IMAGES Final Result * XR FOOT GENERAL 3V AP/LAT/OBL LEFT (11/25/2024 1:28 PM EDT) Anatomical Region Laterality Modality Foot Other 11/25/2024 1:28 PM EDT Impressions 11/30/2024 3:56 PM EDT IMPRESSION: Postoperative changes related to second toe arthrodesis Teletypesetter Operator: RIMMA Transcribe Date/Time: Nov 30 2024 3:53P Dictated by : HODA OLIVEIRA MD This examination was interpreted and the report reviewed and electronically signed by: HODA OLIVEIRA MD on Nov 30 2024 3:54PM EST Narrative 11/30/2024 3:56 PM EDT * * *Final Report* * * DATE OF EXAM: Nov 25 2024 1:28PM [id number] - XR FOOT 3V AP/LAT/OBL LT / PROCEDURE REASON: Post-operative state * * * * Physician Interpretation * * * * HISTORY: . Correction hammer toe deformity second toe with proximal interphalangeal joint arthrodesis TECHNIQUE: XR FOOT 3V AP/LAT/OBL LT Laterality: LEFT Number of different views (projections): 3 COMPARISON: October 24, 2024 RESULT: Changes of prior fifth metatarsal head resection. No acute fracture or dislocation. There has been interval with PIP arthrodesis. An orthopedic K wire traverses the second DIP, PIP and MTP joint. Joint spaces are preserved. Posterior calcaneal enthesophyte and foci of mineralization in the distal Achilles tendon. No soft tissue swelling. No other significant abnormality. Procedure Note Provider, [facility] - 11/30/2024 * * *Final Report* * * DATE OF EXAM: Nov 25 2024 1:28PM [id number] - XR FOOT 3V AP/LAT/OBL LT / PROCEDURE REASON: Post-operative state * * * * Physician Interpretation * * * * HISTORY: . Correction hammer toe deformity second toe with proximal interphalangeal joint arthrodesis TECHNIQUE: XR FOOT 3V AP/LAT/OBL LT Laterality: LEFT Number of different views (projections): 3 COMPARISON: October 24, 2024 RESULT: Changes of prior fifth metatarsal head resection. No acute fracture or dislocation. There has been interval with PIP arthrodesis. An orthopedic K wire traverses the second DIP, PIP and MTP joint. Joint spaces are preserved. Posterior calcaneal enthesophyte and foci of mineralization in the distal Achilles tendon. No soft tissue swelling. No other significant abnormality. IMPRESSION IMPRESSION: Postoperative changes related to second toe arthrodesis Teletypesetter Operator: RIMMA Transcribe Date/Time: Nov 30 2024 3:53P Dictated by : HODA OLIVEIRA MD This examination was interpreted and the report reviewed and electronically signed by: HODA OLIVEIRA MD on Nov 30 2024 3:54PM EST us Trevor June DPM RAD-PAMA Final Result * HEP C AB IA W/CONF SCRN (02/26/2022 10:27 AM EDT) Pathologist [facility] Hep C Antibody IA Negative Negative 02/26/2022 5:53 PM EDT [facility] Comment:The result suggests no evidence of active infection with Hepatitis C virus. Should recent infection be suspected, repeat testing may be considered 4-6 weeks after this draw. Blood BLOOD SPECIMEN / Unknown Venipuncture / Unknown 02/26/2022 10:27 AM EDT 02/26/2022 10:29 AM EDT Josué Pham MD LABORATORY Final Resul t [facility] [address] [place] [address], [place] * PAP FLUID VAGINAL VAULT DIAGNOSTIC (09/25/2011 1:35 PM EDT) Pathologist [facility] Canal Tender Specimen #: [id number] Submitting Physician: DEMETRIUS GARCIA ([id number]) SPECIMEN SUBMITTED A: VAGINAL VAULT,DIAGNOSTIC, FLUID FINAL DIAGNOSIS A. VAGINAL VAULT,DIAGNOSTIC, FLUID Satisfactory for interpretation. Negative for intraepithelial lesion or malignancy. This specimen has been analyzed by the [facility] System (DWNLD), an automated imaging and review system, which assists the laboratory in evaluating cells on ThinPrep Pap tests. Following automated imaging, selected echols from every slide are reviewed by a medicare biller. SHUBHAM Marr (ASCP) (Electronic Signature) CLINICAL DATA HIST MALIGNANCY Date of Last Menstrual Period: Hysterectomy Additional Testing: Reflex HPV testing for ASCUS STAINS A: VAGINAL VAULT,DIAGNOSTIC, FLUID THIN PREP CORRECTION LIEUTENANT x 1 Janessa Olguin M.D., Commercial Center Manager : 1955 (Age: 56) F Date of Report: 10/03/2011 Date of Procedure: 09/25/2011 Date of Receipt: 09/25/2011 Submitted by: DEMETRIUS GARCIA ([id number]) Location: A81 Test performed by: [facility], [address] [place] [address] CYTOLOGY Specimen from uterine cervix (specimen) VAGINAL SWAB / Unknown 09/25/2011 1:35 PM EDT 09/25/2011 3:01 PM EDT Demetrius Garcia MD CYTOLOGY Final Result Performing Organization Address City/State/[facility] de Phone Number CYTOLOGY from Last 3 Months or Most Recently Relevant to Health Maintenance Insurance [facility] MEDICARE ADVANTAGE PPO Care Teams Clinical Support Specialist Relationship Specialty Start Date End Date Maurice Lee MD [address] [place] [address] [facility] - General 11/11/01
--- OUTSIDE RECORDS SUMMARY | 2025-01-29 08:36 | XMS_ITS | Encounter Summary ---
Author Organization [facility] Address [address] [place] [address] Care Team Providers Care Correctional Treatment Specialist Name Role Phone Maurice Lee MD Primary Care Provider [phone] Jessica Christian MA Unavailable Unavailable Jr. Kalen Ramírez DO Unavailable [phone] Kaila Zaman DO Unavailable [phone] Moody Barbosa MD Unavailable Tony Sapp MD Unavailable [phone] Canelo Villarreal MD Unavailable [phone] Encounter Details Date Type Department Care Team (Late st Contact Info) Description 11/21/2022 Orders Only [facility] [address] [address] [place] [address] Provider, MD Vanessa [address] [place] [address] Social History Tobacco Use Types Packs/Day Years Used Date Smoking Tobacco: Former Cigarettes PHQ-2 Answer Date Recorded Patient Health Questionnaire-2 [...] suspected to have Coronavirus/COVID-19? No / Unsure 11/18/2022 10:23 AM EDT documented as of this encounter Functional Status * Over the past 2 weeks, how often have you been bothered by any of the following problems? Question Answer Date of Assessment Author Little interest or pleasure in doing things Not at all 11/22/2022 3:16 PM EDT Marylou Burk L PN Feeling down, depressed, or hopeless Not at all 11/22/2022 3:16 PM EDT Marylou Burk L PN Patient Health Questionnaire -2 Score 0 11/22/2022 3:16 PM EDT Marylou Burk L PN documented as of this encounter Plan of Treatment Upcoming Encounters Date Type Department Care Team (Late st Contact Info) Description 01/31/2025 9:45 AM EDT Office Visit [facility] [address] [place] [address] 02/04/2025 10:30 AM EDT Office Visit [facility] [address] [place] [address] Tony Sapp MD 2081 [facility] [address] [id number] documented as of this encounter Procedures Procedure Name Priority Date/Time Associated Diagnosis Comments SCANNED LABS Routine 11/21/2022 1:06 PM EDT documented in this encounter Results * SCANNED LABS (11/21/2022 1:06 PM EDT) us Historical Provider LAB CHG PERFORMABLES Edit ed Result - Final documented in this encounter Visit Diagnoses Not on filedocumented in this encounter Care Teams Correctional Treatment Specialist Relationship Specialty Start Date End Date Maurice Lee MD [address] [place] [address] PCP - General Internal Medicine 11/07/22 Jessica Christian MA Consulting Physician Internal Medicine 11/25/22 3 Jr. Kalen Ramírez DO [address] [facility] 150 [place] [address] Consulting Physician Orthopaedic Surgery 11/25/22 Kaila Zaman DO [address] [place] [address] Consulting Physician Obstetrics and Gynecology 11/25/22 Moody Barbosa MD [address] [place] [address] Referring Physician Gastroenterology 01/05/24 Tony Sapp MD [address] [place] [address] Referring Physician Neurology 01/19/24 Canelo Villarreal MD [address] Professional [address] [place] [address] Referring Physician Rheumatology 01/19/24 Maikel Castillo Optometry 01/19/24 documented as of this encounter
--- OUTSIDE RECORDS SUMMARY | 2025-01-29 08:36 | XMS_ITS | Encounter Summary ---
Author Organization [facility] Address [address] [facility] [place] [address] Care Team Providers Care Marketing Proposal Specialist Name Role Phone Maurice Lee MD Primary Care Provider [phone] Jr. Kalen Ramírez DO Unavailable [phone] Kaila Zaman DO Unavailable [phone] Moody Barbosa MD Unavailable Tony Sapp MD Unavailable [phone] Canelo Villarreal MD Unavailable Encounter Details Date Type Department Care Team (Late st Contact Info) Description 03/19/2023 Abstract [facility] [place] [facility] [address] [facility] [address] [place] [address] Kaila Zaman DO [address] [facility] [address] [place] [address] Social History Tobacco Use Types Packs/Day Years [...] [place] [facility] [address] [facility] 230 [place] [address] 02/04/2025 10:30 AM EDT Office Visit [facility] [place] [facility] [address] [facility] [address] [place] [address] Tony Sapp MD 5346 [facility] [address] [address] documented as of this encounter Visit Diagnoses Not on filedocumented in this encounter Care Teams Marketing Proposal Specialist Relationship Specialty Start Date End Date Maurice Lee MD [address] [facility] 230 [place] [address] PCP - General Internal Medicine 11/07/22 Jr. Kalen Ramírez DO [address] [place] [address] Consulting Physician Orthopaedic Surgery 11/25/22 Kaila Zaman DO [address] [facility] 210 [place] [address] Consulting Physician Obstetrics and Gynecology 11/25/22 Moody Barbosa MD [address] [facility] 210 [place] [address] Referring Physician Gastroenterology 01/05/24 Tony Spap MD [address] [place] [address] Referring Physician Neurology 01/19/24 Canelo Villarreal MD [address] [facility] Professional building [address] [place] [address] Referring Physician Rheumatology 01/19/24 Maikel Castillo Optometry 01/19/24 documented as of this encounter
--- OUTSIDE RECORDS SUMMARY | 2025-01-29 08:36 | XMS_ITS | Encounter Summary ---
Author Organization [facility] Address [id number] [address] [place] [address] Care Team Providers Care Vp Software Engineering Name Role Phone Maurice Lee MD Primary Care Provider [phone] Encounter Details Date Type Department Care Team (Late st Contact Info) Description 04/25/2024 Orders Only [facility] [address] [place] [phone] Transcribe, Orders Support User Pain (Primary Dx) Social History Tobacco Use Types Packs/Day Years Used Date Smoking Tobacco: Former Cigarettes Smokeless Tobacco: Never Comments:quit 12 years Alcohol Use Standard Drinks/Week Comments Not Currently 0 (1 standard drink = 0.6 oz pur e alcohol) weekly C Utilities Answer Date Recorded In the past 12 months has [employer], gas, oil, or water [employer] threatened to shut off services in your [...] 04/24/2024 PHQ-2 Answer Date Recorded Total Score 0 04/24/2024 PRAPARE - Transportation Answer Date Re corded [...] got money to buy more. Never True 04/24/2024 Within the past 12 months th e food we bought just didn't last and we didn't have money to get more. Never True 04/24/2024 Purpose - Life Answer Date Recorded Purpose and direction in life Unknown Comments No Sex and Gender Information Value Date Recorded Sex Assigned at Not on file Legal Sex Female 3:25 PM EDT Gender Identity Not on file Sexual Orientation Not on file documented as of this encounter Mental Status * Question Answer Entry Date Author Overall Cognitive Status WFL 04/26/2024 10:46 AM EST Minoo Bonilla, PT * Question Answer Entry Date Author Overall Cognitive Status X 04/25/2024 9:19 AM EST Chelo Rangel CCC-QUILL CLEANING MACHINE OPERATOR documented in this encounter Plan of Treatment Not on file documented as of this encounter Goals Goal Patient Goal Type Associated Problems Recent Progress Patient-Stated? Author <enter goal here> General Yes Romeo Valentino, TATIANA Note: Evaluation of progress towards goal: Patient will discharge to inpatient rehab. - Romeo Valentino RN 04/25/24 10:18 AM documented as of this encounter Results * X-ray chest 1 view (04/24/2024 4:10 PM EST) us Scanning Provider External IMG DIAGNOSTIC IMAGIN G ORDERABLES Final Result * CT angiogram carotid (04/24/2024 4:00 PM EST) us Scanning Provider External IMG CT ORDERABLES Fin al Result * CT brain without contrast (04/24/2024 3:10 PM EST) us Scanning Provider External IMG CT ORDERABLES Fin al Result documented in this encounter Visit Diagnoses Diagnosis Pain- Primary Generalized pain documented in this encounter Additional Health Concerns Assessment Noted Time PHQ-9 Depression Total Score: 0 04/24/20 24 9:37 PM EST documented as of this encounter Care Teams Vp Software Engineering Relationship Specialty Start Date End Date Maurice Lee MD [address] [place] [address], [address] [place] [address] PCP - General 05/07/16 documented as of this encounter
--- OUTSIDE RECORDS SUMMARY | 2025-01-29 08:36 | XMS_ITS | Encounter Summary ---
Author Organization [facility] Address [address] [facility] [place] [address] Care Team Providers Care Ammunition And Explosives Handler Name Role Phone Maurice Lee MD Primary Care Provider [phone] Jr. Kalen Ramírez DO Unavailable Kaila Zaman DO Unavailable Moody Barbosa MD Unavailable Tony Sapp MD Unavailable [phone] Canelo Villarreal MD Unavailable Encounter Details Date Type Department Care Team (Late st Contact Info) Description 06/25/2024 Orders Only [facility] [place] [facility] [address] [facility] [place] [phone] Unallocated, Noms Provider, [address] [place] [address] Social History Tobacco Use Types Packs/Day Years Used Date Smoking Tobacco: Former Cigarettes 1.5 15 Q uit: 10/20/2006 Smokeless Tobacco: Never Alcohol Use Standard Drinks/Week Comments Not Currently 3 (1 standard drink = 0.6 oz pure alcohol) 6+ drinks monthly. Caffine intake: 1-2 cups per day PHQ-2 Answer Date Recorded Patient Health Questionnaire-2 Score 0 01/19/2024 Comments Unknown Sex and Gender Information Value [...] [address] [place] [address] 02/04/2025 10:30 AM EDT Office Visit [facility] [place] [facility] [address] [place] [address] Tony Sapp MD [address] [facility] [address] [place] [address] documented as of this encounter Procedures Procedure Name Priority Date/Time Associated Diagnosis Comments CBC WITH AUTO DIFFERENTIAL Routine 06/01/2024 9:38 AM EST BASIC METABOLIC PANEL Routine 06/01/2024 9:38 AM EST URINE CULTURE Routine 05/25/2024 9:32 AM EST URINALYSIS, MANUAL ONLY Routine 05/25/20 9:32 AM EST XR HIP 2 OR 3 VW LEFT Routine 05/21/2024 9:47 AM EST HEMOGLOBIN A1C Routine 05/08/2024 9:30 AM EST US VENOUS DUPLEX BILATERAL Routine 04/30/2024 9:44 AM EST documented in this encounter Results * CBC auto differential (06/01/2024 9:38 AM EST) Blood Venous blood specimen / Unknown us Noms Provider Unallocated MD LAB BLOOD ORDERABLE S Final Result * Basic metabolic panel (06/01/2024 9:38 AM EST) Blood Venous blood specimen / Unknown us Noms Provider Unallocated MD LAB BLOOD ORDERABLE S Final Result * Urinalysis, manual only (05/25/2024 9:32 AM EST) Urine Urine specimen obtained by clean catch procedure / Unknown us Noms Provider Unallocated MD LAB URINE ORDERABLE S Final Result * URINE CULTURE (05/25/2024 9:32 AM EST) us Noms Provider Unallocated MD LAB BLOOD ORDERABLE S Final Result * XR hip left 2 or 3 views (05/21/2024 9:47 AM EST) Anatomical Region Laterality Modality Lower Extremities, Hip Left Radiograp hic Imaging us Noms Provider Unallocated MD IMG XR PROCEDURES F inal Result * Hemoglobin A1c (05/08/2024 9:30 AM EST) Blood Venous blood specimen / Unknown us Noms Provider Unallocated MD LAB BLOOD ORDERABLE S Final Result * US VENOUS DUPLEX BILATERAL (04/30/2024 9:44 AM EST) Anatomical Region Laterality Modality Radiographic Shanita ging us Noms Provider Unallocated MD IMG XR PROCEDURES F inal Result documented in this encounter Visit Diagnoses Not on filedocumented in this encounter Care Teams Ammunition And Explosives Handler Relationship Specialty Start Date End Date Maurice Lee MD [address] [place] [address] PCP - General Internal Medicine 11/07/22 Jr. Kalen Ramírez DO [address] [place] [address] [address] [place] [address] Consulting Physician Orthopaedic Surgery 11/25/22 Kaila Zaman DO [address] [place] [address] Consulting Physician Obstetrics and Gynecology 11/25/22 Moody Barbosa MD [address] [place] [address] Referring Physician Gastroenterology 01/05/24 Tony Sapp MD [address] [place] [address] Referring Physician Neurology 01/19/24 Canelo Villarreal MD [address] Professional [address] 1 [place] [address] Referring Physician Rheumatology 01/19/24 Maikel Castillo Optometry 01/19/24 documented as of this encounter
--- OUTSIDE RECORDS SUMMARY | 2025-01-29 08:36 | XMS_ITS | Encounter Summary ---
Author Organization [facility] Address [address] [facility] [place] [address] Care Team Providers Care Boss Dyer Name Role Phone Maurice Lee MD Primary Care Provider Jr. Kalen Ramírez DO Unavailable [phone] Kaila Zaman DO Unavailable [phone] Moody Barbosa MD Unavailable Tony Sapp MD Unavailable [phone] Canelo Villarreal MD Unavailable [phone] Encounter Details Date Type Department Care Team (Late st Contact Info) Description 06/19/2023 [facility] [address] [facility] [place] [phone] A, Unknown Practice [address] [place], [place] [phone] Social History Tobacco Use Types Packs/Day Years [...] Medicine [address] [place] [address] 02/04/2025 10:30 AM EDT Office Visit [facility] [place] [facility] [address] [place] [address] Tony Sapp MD [address] [facility] [address] [address] [place], [place] [phone] documented as of this encounter Procedures Procedure Name Priority Date/Time Associated Diagnosis Comments HOLTER MONITOR 48 HOUR Routine 06/14/2023 10:18 AM EST documented in this encounter Results * Holter monitor 48 hour (06/14/2023 10:18 AM EST) Anatomical Region Laterality Modality Other us Unknown Practice [facility] PROCEDURE S Final Result documented in this encounter Visit Diagnoses Not on filedocumented in this encounter Care Teams Boss Dyer Relationship Specialty Start Date End Date Maurice Lee MD [address] [place] [address] PCP - General Internal Medicine 11/07/22 Jr. Kalen Ramírez DO 112 [facility] 150 [place] [address] Consulting Physician Orthopaedic Surgery 11/25/22 Kaila Zaman DO [address] [place] [address] Consulting Physician Obstetrics and Gynecology 11/25/22 Moody Barbosa MD [address] [place] [address] Referring Physician Gastroenterology 01/05/24 Tony Sapp MD [address] [place] [address] Referring Physician Neurology 01/19/24 Canelo Villarreal MD [address] Professional [address] [place] [address] Referring Physician Rheumatology 01/19/24 Maikel Castillo Optometry 01/19/24 documented as of this encounter
--- OUTSIDE RECORDS SUMMARY | 2025-01-29 08:36 | XMS_ITS | Encounter Summary ---
Author Organization [facility] Address [id number] [address] [place] [address] Care Team Providers Care Gear Room Keeper Name Role Phone Maurice Lee MD Primary Care Provider [phone] Encounter Details Date Type Department Care Team (Late st Contact Info) Description 02/17/2024 Orders Only [facility] [address] [place] [address] Joselo Voss CMA Aftercare following [...] as of this encounter Plan of Treatment Not on file documented as of this encounter Visit Diagnoses Diagnosis 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- Primary documented in this encounter Care Teams Gear Room Keeper Relationship Specialty Start Date End Date Maurice Lee MD [address] [place] [address], [address] [place] [address] PCP - General 05/07/16 documented as of this encounter
--- OUTSIDE RECORDS SUMMARY | 2025-01-29 08:36 | XMS_ITS | Encounter Summary ---
Author Organization [facility] Address [id number] [address] [place] [address] Care Team Providers Care Repairer Auto Clocks Name Role Phone Maurice Lee MD Primary Care Provider [phone] Encounter Details Date Type Department Care Team (Late st Contact Info) Description 04/26/2024 Orders Only [facility] [address] [place] [phone] External, Scanning Provider Pain (Primary Dx) Social History Tobacco Use Types Packs/Day Years Used Date Smoking Tobacco: Former Cigarettes Smokeless Tobacco: Never Comments:quit 12 years Alcohol Use Standard Drinks/Week Comments Not Currently 0 (1 standard drink = 0.6 oz pur e alcohol) weekly [facility] Utilities Answer Date Recorded In the past 12 months has [employer], gas, oil, or water [employer] threatened to shut off services in your [...] medical appointments or from getting medications? No 11/0 02/2024 In the past 12 months, has [...] Status WFL 04/26/2024 10:46 AM EST Minoo Bonilla PT documented in this encounter Plan of Treatment Not on file documented as of this encounter Goals Goal Patient Goal Type Associated Problems Recent Progress Patient-Stated? Author <enter goal here> General Yes Rmoeo Valentino RN Note: Evaluation of progress towards goal: Patient will discharge to inpatient rehab. - Romeo Valentino RN 04/25/24 10:18 AM documented as of this encounter Results * CT angiogram head (04/24/2024 4:05 PM EST) us Scanning Provider External IMG CT ORDERABLES Fin al Result documented in this encounter Visit Diagnoses Diagnosis Pain- Primary Generalized pain documented in this encounter Additional Health Concerns Assessment Noted Time PHQ-9 Depression Total Score: 0 04/24/20 9:37 PM EST documented as of this encounter Care Teams Repairer Auto Clocks Relationship Specialty Start Date End Date Maurice Lee MD [address] [place] [address], [address] [place] [address] PCP - General 05/07/16 documented as of this encounter
--- OUTSIDE RECORDS SUMMARY | 2025-01-29 08:36 | XMS_ITS | Encounter Summary ---
Author Organization [facility] Address [address] [place] [address] Care Team Providers Care Termite Exterminator Name Role Phone Maurice Lee MD Primary Care Provider [phone] Jr. Kalen Ramírez DO Unavailable Kaila Zaman DO Unavailable Moody Barbosa MD Unavailable Tony Sapp MD Unavailable Canelo Villarreal MD Unavailable [phone] Encounter Details Date Type Department Care Team (Late st Contact Info) Description 12/06/2022 Abstract [facility] [address] [place] [address] Canelo Cedillo, PA [address] [place] [address] Social History Tobacco Use Types Packs/Day Years [...] suspected to have Coronavirus/COVID-19? No / Unsure 12/07/2022 9:42 AM EDT documented as of this encounter Plan of Treatment Upcoming Encounters Date Type Department Care Team (Late st Contact Info) Description 01/31/2025 9:45 AM EDT Office Visit [facility] [place] [facility] [address] [facility] [address] [place] [address] 02/04/2025 10:30 AM EDT Office Visit [facility] [address] [facility] 310 [place] [address] Tony Sapp MD 5344 [facility] [address] [address] documented as of this encounter Visit Diagnoses Not on filedocumented in this encounter Care Teams Termite Exterminator Relationship Specialty Start Date End Date Maurice Lee MD [address] [facility] 230 [place] [address] PCP - General Internal Medicine 11/07/22 Jr. Kalen Ramírez DO [address] [place] [address] [address] [place] [address] Consulting Physician Orthopaedic Surgery 11/25/22 Kaila Zaman DO [address] [place] [address] Consulting Physician Obstetrics and Gynecology 11/25/22 Moody Barbosa MD [address] [place] [address] Referring Physician Gastroenterology 01/05/24 Tony Sapp MD [address] [place] [address] Referring Physician Neurology 01/19/24 Canelo Villarreal MD [address] Professional [address] [place] [address] Referring Physician Rheumatology 01/19/24 Maikel Castillo Optometry 01/19/24 documented as of this encounter
--- OUTSIDE RECORDS SUMMARY | 2025-01-29 08:36 | XMS_ITS | Encounter Summary ---
Author Organization [facility] Address [address] [place] [address] Care Team Providers Care Patent Chemist Name Role Phone Maurice Lee MD Primary Care Provider [phone] Jr. Kalen Ramírez DO Unavailable Kaila Zaman DO Unavailable [phone] Moody Barbosa MD Unavailable Tony Sapp MD Unavailable [phone] Canelo Villarreal MD Unavailable [phone] Reason for Visit * Reason Onset Date Comments Med Refill 01/25/2025 Encounter Details Date Type Department Care Team (Late st Contact Info) Description 01/25/2025 Refill [facility] Internal Medicine [address] [facility] [address] [place] [address] Yessenia Palomares, STADIUM MANAGER [address] [facility] [address] [place] [address] Moderate major depression (HCC) Social History Tobacco [...] Visit [facility] [place] [facility] [address] [facility] 230 [place] [address] 02/04/2025 10:30 AM EDT Office Visit [facility] [place] [facility] [address] [facility] [address] [place] [address] Tony Sapp MD 7606 [facility] [address] [id number] documented as of this encounter Visit Diagnoses Diagnosis Moderate major depression (HCC) Major depressive disorder, single episode, moderate documented in this encounter Care Teams Patent Chemist Relationship Specialty Start Date End Date Maurice Lee MD [address] [facility] 230 [place] [address] PCP - General Internal Medicine 11/07/22 Jr. Kalen Ramírez DO [address] [place] [address] Consulting Physician Orthopaedic Surgery 11/25/22 Kaila Zaman DO [address] [facility] [address] [place] [address] Consulting Physician Obstetrics and Gynecology 11/25/22 Moody Barbosa MD [address] [facility] [address] [place] [address] Referring Physician Gastroenterology 01/05/24 Tony Sapp MD [address] [place] [address] Referring Physician Neurology 01/19/24 Canelo Villarreal MD [address] Professional [address] 1 [place] [address] Referring Physician Rheumatology 01/19/24 Maikel Castillo Optometry 01/19/24 documented as of this encounter
--- OUTSIDE RECORDS SUMMARY | 2025-01-29 08:36 | XMS_ITS | Encounter Summary ---
Author Organization [facility] Address [id number] [address] [place] [address] Care Team Providers Care Tooling Engineering Tech Name Role Phone Maurice Lee MD Primary Care Provider [phone] Encounter Details Date Type Department Care Team (Late st Contact Info) Description 02/19/2023 Orders Only [facility] [address] [place] [address] Мария Snyder CMA Aftercare following left hip joint replacement [...] on file documented as of this encounter Results * X-ray hip left 2-3 views with or without pelvis (03/06/2023 8:18 AM EDT) Anatomical Region Laterality Modality Hip Left Computed Radiogr aphy 03/06/2023 12:5 8 PM EDT Narrative 03/06/2023 12:58 PM EDT CLINICAL INFORMATION: 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 TECHNIQUE: XR HIP LT 2-3 VIEWS W OR WO PELVIS 2 views of the hip were obtained. Patient status post total hip arthroplasty. Alignment appears anatomic. Hardware is intact. No fracture or loosening. IMPRESSION: Satisfactory postoperative hip. Finalized by Roverto Sánchez MD on 03/06/2023 12:58 PM Procedure Note Roverto Sánchez MD - 03/06/2023 CLINICAL INFORMATION: 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 TECHNIQUE: XR HIP LT 2-3 VIEWS W OR WO PELVIS 2 views of the hip were obtained. Patient status post total hiparthroplasty. Alignment appears anatomic. Hardware is intact. No fractureor loosening. IMPRESSION: Satisfactory postoperative hip. Finalized by Roverto Sánchez MD on 03/06/2023 12:58 PM us Oneil Yen MD IMG DIAGNOSTIC IMAGING ORDERABLE S Final Result documented in this encounter Visit Diagnoses Diagnosis 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- Primary 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 documented in this encounter Care Teams Tooling Engineering Tech Relationship Specialty Start Date End Date Maurice Lee MD [address] [place] [address], [address] [place] [address] PCP - General 05/07/16 documented as of this encounter
--- OUTSIDE RECORDS SUMMARY | 2025-01-29 08:37 | XMS_ITS | Encounter Summary ---
Author Organization [facility] Address [address] [facility] [place] [address] Care Team Providers Care Pleating Machine Operator Name Role Phone Maurice Lee MD Primary Care Provider [phone] Jr. Kalen Ramírez DO Unavailable Kaila Zaman DO Unavailable Moody Barbosa MD Unavailable Tony Sapp MD Unavailable [phone] Canelo Villarreal MD Unavailable Encounter Details Date Type Department Care Team (Late st Contact Info) Description 08/12/2024 Orders Only [facility] [address] [facility] [place] [place] [phone] Unallocated, Noms Provider, [address] [place] [address] Social History Tobacco Use Types Packs/Day Years [...] Medicine [address] [place] [address] 02/04/2025 10:30 AM EDT Office Visit [facility] [place] [facility] [address] [place] [address] Tony Sapp MD [address] [facility] [address] [address] documented as of this encounter Procedures Procedure Name Priority Date/Time Associated Diagnosis Comments CT SPINE CERVICAL W/O CONTRAST Routine 07/22/2024 11:[address] HEAD OR BRAIN W/ & W/O CONTRAST Routine 07/22/2024 11:[address] SPINE CERVICAL W/O CONTRAST Routine 07/12/2024 11:41 AM EST XR SACRUM AND COCCYX MIN 2 VIEWS Routine 07/12/2024 11:39 AM EST documented in this encounter Results * CT SPINE CERVICAL W/O CONTRAST (07/22/2024 11:48 AM EST) Anatomical Region Laterality Modality Radiographic Shanita ging us Noms Provider Unallocated MD IMG XR PROCEDURES F inal Result * CT HEAD OR BRAIN W/ & W/O CONTRAST (07/22/2024 11:42 AM EST) Anatomical Region Laterality Modality Radiographic Shanita ging us Noms Provider Unallocated MD IMG XR PROCEDURES F inal Result * CT SPINE CERVICAL W/O CONTRAST (07/12/2024 11:41 AM EST) Anatomical Region Laterality Modality Radiographic Shanita ging us Noms Provider Unallocated MD IMG XR PROCEDURES F inal Result * XR SACRUM AND COCCYX MIN 2 VIEWS (07/12/2024 11:39 AM EST) Anatomical Region Laterality Modality Radiographic Shanita ging us Noms Provider Unallocated MD PAINTING XR PROCEDURES F inal Result documented in this encounter Visit Diagnoses Not on filedocumented in this encounter Care Teams Pleating Machine Operator Relationship Specialty Start Date End Date Maurice Lee MD [address] [place] [address] PCP - General Internal Medicine 11/07/22 Jr. Kalen Ramírez DO [address] [facility] [address] [place] [address] Consulting Physician Orthopaedic Surgery 11/25/22 Kaila Zaman DO [address] [place] [address] Consulting Physician Obstetrics and Gynecology 11/25/22 Moody Barbosa MD [address] [place] [address] Referring Physician Gastroenterology 01/05/24 Tony Sapp MD [address] [place] [address] Referring Physician Neurology 01/19/24 Canelo Villarreal MD [address] [place] [phone] Referring Physician Rheumatology 01/19/24 Maikel Castillo Optometry 01/19/24 documented as of this encounter
--- OUTSIDE RECORDS SUMMARY | 2025-01-29 08:37 | XMS_ITS | Encounter Summary ---
Author Organization [facility] Address [address] [place] [address] Phone Care Team Providers Care Restorative Aide Name Role Phone Maurice Lee MD Primary Care Provider [phone] Encounter Details Date Type Department Care Team (Late st Contact Info) Description 06/01/2024 Scanned Document [facility] [address] [place] [phone] Scanning, Generic Provider Social History Tobacco Use Types Packs/Day Years Used Date Smoking Tobacco: Never Assessed Comments Unknown Sex and Gender Information Value Date Recorded Sex Assigned at Not on file Legal Sex Female 10:31 AM EST Gender Identity Not on file Sexual Orientation Not on file documented as of this encounter Plan of Treatment Upcoming Encounters Date Type Department Care Team (Late Contact Info) Description 03/23/2025 10:00 AM EDT Office Visit [facility] [address] [facility] [address] [place] [phone] Kimmie Gaines MD [address] [facility] [address] [place] [address] documented as of this encounter Visit Diagnoses Not on filedocumented in this encounter Care Teams Restorative Aide Relationship Specialty Start Date End Date Maurice Lee MD [address] [place] [address] PCP - General Internal Medicine 07/22/24 documented as of this encounter
--- OUTSIDE RECORDS SUMMARY | 2025-01-29 08:37 | XMS_ITS | Clinical Summary ---
Author Organization [facility] Address [address] [place] [address] Care Team Providers Care Minesweeping Officer Name Role Phone Maurice Lee MD Primary Care Provider [phone] Jr. Kalen Ramírez DO Unavailable [phone] Kaila Zaman DO Unavailable [phone] Moody Barbosa MD Unavailable Tony Sapp MD Unavailable [phone] Canelo Villarreal MD Unavailable [phone] Allergies No known active allergies Medications Multiple Vitamins-Minerals (PRESERVISION AREDS 2 PO) 1 (one) time each day at the same time. Active cyanocobalamin (Vitamin B-12) 500 MCG tablet 1 (one) time each day at the same time. Active cholecalciferol (Vitamin D3) 25 MCG (1000 UT) tablet 1 (one) time each day at the same time. Active Calcium Carbonate-Vit D-Min (CALTRATE 600+D PLUS MINERALS PO) Take by mouth. Active denosumab (Prolia) 60 MG/ML solution prefilled syringeIndications:Age- related osteoporosis without current pathological fracture Inject 1 mL (60 mg) under the skin every 6 (six) months. 1 mL 1 023 Active omeprazole (PriLOSEC) [address] capsule Take 40 mg by mouth in the morning and 40 mg in the evening. Take before meals. Active cyclobenzaprine (Flexeril) 5 MG tabletIndications:Neck pain Take 1 tablet (5 mg) by mouth 3 (three) times a day as needed for muscle spasms 30 tablet 025 Active apixaban (Eliquis) 5 MG tabletIndications:Histo ry of CVA (cerebrovascular accident) Take 1 tablet (5 mg) by mouth in the morning and 1 tablet (5 mg) before bedtime. 60 tablet 5 025 Active ezetimibe (Zetia) 10 MG tabletIndications:Pure hypercholesterolemia TAKE 1 TABLET BY MOUTH DAILY 90 tablet 3 025 Active ALPRAZolam (Xanax) 0.25 MG tabletIndications:Gener alized anxiety disorder Take 1 tablet (0.25 mg) by mouth 3 (three) times a day as needed for anxiety 60 tablet 2 025 Active buPROPion XL (Wellbutrin XL) 150 MG 24 hr tabletIndications:Moder ate major depression (HCC) Take 1 tablet (150 mg) by mouth in the morning. Do not crush, chew, or split. 30 tablet 3 025 2024 Active ARIPiprazole (Abilify) 5 MG tabletIndications:Moder ate major depression (HCC) Take 1 tablet (5 mg) by mouth Daily 30 tablet 3 025 2024 Active buPROPion XL (Wellbutrin XL) 300 MG 24 hr tabletIndications:Gener alized anxiety disorder TAKE 1 TABLET (300 MG) BY MOUTH 1 (ONE) TIME EACH DAY AT THE SAME TIME. 90 tablet 3 024 2024 Discontinued ALPRAZolam (Xanax) 0.25 MG tabletIndications:Gener alized anxiety disorder Take 1 tablet (0.25 mg) by mouth 3 (three) times a day as needed for anxiety 60 tablet 2 025 2024 Discontinued(R eorder) buPROPion XL (Wellbutrin XL) 300 MG 24 hr tabletIndications:Gener alized anxiety disorder TAKE 1 TABLET (300 MG) BY MOUTH 1 (ONE) TIME EACH DAY AT THE SAME TIME. 90 tablet 3 025 2024 Discontinued(T herapy completed) ARIPiprazole (Abilify) 2 MG tabletIndications:Moder ate major depression (HCC) Take 1 tablet (2 mg) by mouth Daily for 7 days 7 tablet 025 2024 Discontinued ARIPiprazole (Abilify) 5 MG tabletIndications:Moder ate major depression (HCC) Take 1 tablet (5 mg) by mouth Daily Do not start before January 21, 2025. 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 02/04/2024 Globus sensation 02/04/2024 Dyspepsia 02/04/2024 Marginal ulcer 10/06/2023 Degenerative joint disease of sacroiliac joint 0 10/06/2023 History of CVA (cerebrovascular accident) 2022 Pure hypercholesterolemia 04/01/2023 History of bariatric surgery 11/22/2022 Age-related osteoporosis wit hout current pathological fracture 10/21/2022 Generalized anxiety disorder 10/21/2022 Moderate major depression 10/21/2022 Multilevel degenerative disc disease 10/21/2022 Polymyalgia rheumatica ([facility]) 10/21/2022 Primary osteoarthritis involving multiple joints 02/27/2022 Resolved Problems Problem Noted Date Diagnosed Date Resolved Date Acute right MCA stroke 12/27/202412/27 Anxiety 04/01/2023 05/28/2023 Depression 04/01/2023 05/28/2023 Degenerative disc disease, lumbar 03/06/2023 05/28/2023 Carpal tunnel syndrome 10/21/202211/22 CMC arthritis 10/21/2022 11/22/2022 Fibrocystic breast changes 10/21/2022 0 11/22/2022 Osteoporosis 10/21/2022 11/22/2022 Pain in limb 10/21/2022 11/22/2022 Paresthesias in right hand 10/21/2022 0 11/22/2022 Primary osteoarthritis of left hip 10/21/2022 11/22/2022 Status post hysterectomy 10/21/202202/2023 Vaginal atrophy 10/21/2022 11/22/2022 Status post total hip replacement, left 09/03/2022 06/01/2023 Encounters Date Type Department Care Team Description 01/25/2025 Refill [facility] [address] [place] [address] Yessenia Palomares, GERMAN Moderate major depression (HCC) 01/25/2025 Refill [facility] [address] [place] [phone] Amber Crowder LPN Moderate major depression (HCC) 01/14/2025 10:45 AM EDT Office Visit [facility] [address] [place] [phone] Yessenia Palomares NP Moderate major depression (HCC) (Primary Dx); History of CVA (cerebrovascular accident) 01/14/2025 Travel 01/09/2025 Refill [facility] [address] [place] [address] Maurice Lee MD Generalized anxiety disorder 01/07/2025 Refill [facility] [address] [place] [phone] Amber Crowder LPN Generalized anxiety disorder 01/07/2025 Telephone [facility] [address] [place] [address] Amber Crowder LPN 01/06/2025 Refill [facility] [address] [place] [address] Zenaida Frazier LPN Generalized anxiety disorder 12/28/2024 10:45 AM EDT Office Visit [facility] [address] [place] [address] Yessenia Palomares NP Cervicalgia (Primary Dx); Primary osteoarthritis involving multiple joints 12/28/2024 Travel 12/16/2024 Refill [facility] [place] [facility] [address] [place] [address] Maurice Lee MD Pure hypercholesterolemia 11/25/2024 Clinisync Result Encounter [facility] External Department Unsolicited Provider, Generic External Data 11/02/2024 Refill [facility] [place] [facility] [address] [place] [address] Amber Crowder LPN Generalized anxiety disorder from Last 3 Months Immunizations Immunization Administration Dates Next Due Influenza, High Dose Seasonal, Preservative Free 03/20/2021 Influenza, Seasonal, Quadrivalent, Adjuvanted Influenza, Split (incl. purified surface antigen ) 04/12/2016 Influenza, injectable, quadrivalent 04/24/2019 Influenza, injectable, quadrivalent, preservativ e free 04/10/2020 Influenza, seasonal, intradermal, preservative f ree 04/28/2017,04/16/2014 Pneumococcal Conjugate PCV 20 11/25/2022 Pneumococcal Polysaccharide PPSV23 07/02/2010, Zoster, Recombinant 04/18/2023,02/14/2023 Family History Medical History Relation Name Comments Cancer Brother 1 Maurice Ríos Cancer Brother 2 Wolfgang Ríos Cancer Father George Ríos Lung cancer Father George Ríos Cancer Mother Minoo Ríos Heart disease Mother Minoo Ríos Hypertension Mother Minoo Ríos Relation Name Status Comments Brother 1 Maurice Ríos Brother 2 Wolfgang Ríos Father George Ríos Mother Minoo Ríos Social History Tobacco Use Types Packs/Day Years Used Date Smoking Tobacco: Former Cigarettes 1.5 15 Q uit: 10/20/2006 Smokeless Tobacco: Never Tobacco Cessation:Counseling Given: Not Answered Alcohol Use Standard Drinks/Week Comments Not Currently [...] file Not on file Not on file Last Filed Vital Signs Vital Sign Reading Time Taken Comments Blood Pressure 132/82 01/14/2025 10:37 AM EDT Pulse 94 01/14/2025 10:37 AM EDT Temperature 36.3 C (97.3 F) 03/11/2024 2:43 PM EDT Respiratory Rate - - Oxygen Saturation 99% 01/14/2025 10:37 AM EDT Inhaled Oxygen Concentration - - Weight 63 kg (139 lb) 01/14/2025 10:37 AM EDT Height 162.6 cm (5' 4 ) 12/28/2024 10:41 AM EDT Body Mass Index 23.86 12/28/2024 10:41 AM EDT Plan of Treatment Upcoming Encounters Date Type Department Care Team (Late st Contact Info) Description 01/31/2025 9:45 AM EDT Office Visit [facility] [address] [facility] [address] [place] [phone] 02/04/2025 10:30 AM EDT Office Visit [facility] [address] [facility] [address] [place] [address] Tony Sapp MD [address] [facility] [address] [place] [id number] Health Maintenance Due Date Last Done Comments CT Colonography 1955 FIT-DNA 1955 FIT 1955 FOBT 1955 Sigmoidoscopy 1955 Medicare Annual Wellness (AWV) 03/20/2024 03/20/2023 , 06/18/2021 Mammogram 04/22/2024 04/22/2023, 11/2021, 10/18/2020, Additional history exists Influenza Vaccine (#1) 2025 , 04/07/2023, 03/20/2021, Additional history exists Colonoscopy 11/30/2028 11/30/2018, 04/07/2009 Colorectal Cancer Screening 11/30/2028 Pneumococcal Vaccine: 65+ Years Completed 11/25/2022, 07/02/2010, 04/09/2001 Procedures Procedure Name Priority Date/Time Associated Diagnosis Comments XR FOOT 3V AP/LAT/OBL LT 11/25/2024 1:28 PM EDT MAMMO 3D,BILATERAL SCREENING MAMMOGRAM WITH TOMOSY Routine 04/22/2023 4:32 PM EST COLONOSCOPY Routine 11/30/2018 12:00 PM EDT from Last 3 Months or Most Recently Relevant to Health Maintenance Results * XR FOOT 3V AP/LAT/OBL LT (11/25/2024 1:28 PM EDT) Anatomical Region Laterality Modality Other 11/25/2024 1:28 PM EDT Narrative 11/30/2024 3:56 PM EDT * * [...] soft tissue swelling. No other significant abnormality. IMPRESSION: Postoperative changes related to second toe arthrodesis Commodity Merchant: RIMMA Transcribe Date/Time: Nov 30 2024 3:53P Dictated by : HODA OLIVEIRA MD This examination was interpreted and the report reviewed and electronically signed by: HODA OLIVEIRA MD on Nov 30 2024 3:54PM EST [id number]^SI^ACN Procedure Note Radiology, Radiologist, - 11/30/2024 * * *Final Report* * [...] soft tissue swelling. No other significant abnormality. IMPRESSION: Postoperative changes related to second toe arthrodesis Commodity Merchant: RIMMA Transcribe Date/Time: Nov 30 2024 3:53P Dictated by : HODA OLIVEIRA MD This examination was interpreted and the report reviewed and electronically signed by: HODA OLIVEIRA MD on Nov 30 2024 3:54PM EST [id number]^SI^ACN us Generic External Data Provider [facility] Final Result * MAMMO 3D,BILATERAL SCREENING MAMMOGRAM WITH TOMOSY (04/22/2023 4:32 PM EST) Anatomical Region Laterality Modality Radiographic Shanita ging us Unknown Practice A IMG XR PROCEDURES Final Resul t * Colonoscopy (11/30/2018 12:00 PM EDT) Anatomical Region Laterality Modality Endoscopy 11/30/2018 12:0 0 PM EDT Narrative 11/30/2018 12:00 PM EDT PERFORMED [facility] LOCATION:[id number] hemorrhods, diverticulosis Procedure Note CONVERSION, GENERIC - 10/30/2022 PERFORMED [facility] LOCATION:[id number] hemorrhods, diverticulosis Maurice Lee MD ENDOSCOPY PROCEDURE ORDERABLES Final Result from Last 3 Months or Most Recently Relevant to Health Maintenance Insurance [employer] MEDICARE Care Teams Minesweeping Officer Relationship Specialty Start Date End Date Maurice Lee MD [address] [place] [address] PCP - General Internal Medicine 11/07/22 Jr. Kalen Ramírez DO [address] [place] [address] [address] [place] [address] Consulting Physician Orthopaedic Surgery 11/25/22 Kaila Zaman DO [address] [place] [address] Consulting Physician Obstetrics and Gynecology 11/25/22 Moody Barbosa MD [address] [place] [address] Referring Physician Gastroenterology 01/05/24 Tony Sapp MD [address] [place] [address] Referring Physician Neurology 01/19/24 Canelo Villarreal MD [address] [place] [phone] Referring Physician Rheumatology 01/19/24 Maikel Castillo Optometry 01/19/24
--- OUTSIDE RECORDS SUMMARY | 2025-01-29 08:37 | XMS_ITS | Encounter Summary ---
Author Organization [facility] Address [address] [place] [address] Phone Care Team Providers Care Business Management Specialist Name Role Phone Maurice Lee MD Primary Care Provider [phone] Encounter Details Date Type Department Care Team (Late st Contact Info) Description 06/29/2024 Scanned Document [facility] [address] [place] [phone] Scanning, Generic Provider Social History Tobacco Use [...] Care Team (Late st Contact Info) Description 03/23/2025 10:00 AM EDT Office Visit [facility] [address] [facility] [address] [place] [phone] Kimmie Gaines MD [address] [facility] [address] [place] [address] documented as of this encounter Visit Diagnoses Not on filedocumented in this encounter Care Teams Business Management Specialist Relationship Specialty Start Date End Date Maurice Lee MD [address] [place] [address] PCP - General Internal Medicine 07/22/24 documented as of this encounter
--- OUTSIDE RECORDS SUMMARY | 2025-01-29 08:37 | XMS_ITS | CCD ---
Author Organization [facility] Care Team Providers Care Third Rigger Name Role Phone Trip Enriquez Unavailable MD Tamia France Primary Care Provider [phone] MD Tamia France Attending Provider MD Trip Enriquez Attending Provider EDILMA, DR CANTRELL Primary Care Unavailable MISC, DR MONTOYA Attending Unavailable MISC, DR MONTOYA Consulting Unavailable MISC, DR MONTOYA Admitting Unavailable EDILMA, DR CANTRELL Primary Care Unavailable MISC, DR MONTOYA Attending Unavailable MISC, DR MONTOYA Consulting Unavailable MISC, DR MONTOYA Admitting Unavailable HILL, DR CANTRELL Attending Unavailable HILL, DR CANTRELL Consulting Unavailable HILL, DR CANTRELL Primary Care Unavailable HILL, DR CANTRELL Admitting Unavailable Tamia France MD Primary Care Provider [phone] MD Tamia France Primary Care Provider MD Tamia France Attending Provider [phone] MD Trip Enriquez Attending Provider MD Tamia France Primary Care Provider [phone] MD Tamia France Attending Provider MD Trip Enriquez Attending Provider Self, Referral Attending Provider Unavailable MD Tamia France Primary Care Provider [phone] MEG [place] Attending Provider [phone] Tamia France MD Primary Care Provider [phone] Jr. Kalen Ramírez DO Unavailable Kaila Zaman DO Unavailable MD Tamia France Primary Care Provider GERMAN [place]-Veronica Casas Attending Provider DO Gomez Ceron Emergency Provider MD Tamia France Attending Provider [phone] MD Tamia France Referring Provider MD Edilma Tamia Primary Care Provider MD Trip Enriquez Attending Provider [phone] MD Tamia France Primary Care Provider MD Tamia France Primary Care Provider [phone] MD Moody Barbosa Attending Provider [phone] MD Tamia France Primary Care Provider MD Trip Enriquez Attending Provider Familia MARTINEZ, Moody Unavailable Senait MARTINEZ, Tony Barrera Unavailable Cherelle MARTINEZ, Canelo Pacheco Unavailable [phone] TAMIA FRANCE Primary Care Physician [phone] Trevor Biswas Attending Unavailable Trevor Biswas Attending Unavailable PROVIDER, UNKNOWN Attending Unavailable PROVIDER, UNKNOWN Admitting Unavailable Edilma MARTINEZ, Tamia Primary Care Provider [phone] Tamia France MD Attending Provider Tamia France MD Referring Provider Trace Laughlin MD Admit Provider Trace Laughlin MD Attending Provider Donell SIMPSON, Sakshi Other Provider Unavailable Dustin SIMPSON, Shama Other Provider Unavailable aCsper SIMPSON, Paola Other Provider Unavailable Aidan SIMPSON, Makayla Other Provider Unavailable Sim RNBarbara Other Provider Unavailable Isabel Chairez MD Other Provider Luciana Hughes DO Other Provider Yusef Pereira MD Other Provider [phone] Manish Soliman DO Other Provider [phone] Kumar Roth MD Other Provider Krystal Andres MD Other Provider Mandi Kim DO Other Provider Lawrence MARTINEZ, Jonathan Other Provider Unavailable Parvin Santo APRN Other Provider Rony Diaz MD Other Provider Charlie Whitfield MD Other Provider Home MARTINEZ, Boyd Other Provider Kym Correia MD Other Provider Ravenmercedesmagdaleno DOMandi Other Provider Nay Maloney MD Other Provider Taylor MARTINEZ, Naun Other Provider Lincoln CONCRETE POURER-C, Rosa Stiles Other Provider Jens Szymanski APRN Other Provider Unavailable Deshawn MARTINEZ, Kyler Pacheco Other Provider Mega MARTINEZ, Godwin Other Provider Johnson Lucio MD Other Provider Zee MARTINEZ, Cassy Other Provider Unavailable Neto Tomlinson MD Other Provider Harriett Troncoso DO Other Provider OsmanEver bray DO Other Provider Juani Whalen APRN Other Provider Fawad Benavidez DO Other Provider [phone] Camille MARTINEZ, Mechelle Christiansen Other Provider Fanny Espinal APRN Other Provider Raiza Bauer APRN Other Provider Bartolo Ford MD Other Provider Carlos Champion MD Other Provider Sarwat Hernandez DO Other Provider Brysonsridhar SONG Yahamlet Other Provider Lucio MD, Dayo P Other Provider Darrell MARTINEZ, Jhonathan Arriaga Other Provider Мария Moralez APRN Other Provider Pablo MARTINEZ, Bernice Other Provider Garry Meza MD Other Provider Kelsea SIMPSON, Federica Other Provider Unavailable Bonnie MARTINEZ, Gonzalo Hays Attending Provider [phone] Edilma MARTINEZ, Tamia Davis Primary Care Provider Edilma MARTINEZ, Tamia Primary Care Provider [phone] Nancy Galvez DO Emergency Provider [phone] Edilma MARTINEZ, Tamia Buenrostro Primary Care Provider Boyd Bhat MD Other Provider Unavailable Lenard Chatterjee APRN Emergency Provider [phone] EDILMA, TAMIA Tea Referring Unavailable HILL, TAMIA L Primary Care Unavailable HILL, TAMIA L Referring Unavailable HILL, TAMIA L Primary Care Unavailable HILL, TAMIA L Referring Unavailable HILL, TAMIA L Primary Care Unavailable HILL, TAMIA L Referring Unavailable HILL, TAMIA L Primary Care Unavailable HILL, TAMIA L Referring Unavailable HILL, TAMIA L Primary Care Unavailable KIMMIE BEAVER Referring Unavailable HILL, TAMIA AGNES Primary Care Unavailable KIMMIE EBAVER Referring Unavailable HILL, TAMIA AGNES Primary Care Unavailable Edilma MARTINEZ, Tamia Buenrostro Primary Care Provider Familia MARTINEZ, Imad Unavailable KIMMIE BEAVER Attending Unavailable HILL, TAMIA AGNES Primary Care Unavailable Familia MARTINEZ, Imad Unavailable TREVOR LANCASTER Attending Unavailable HILL, TAMIA AGNES Primary Care Unavailable SELF Referring Unavailable TREVOR LANCASTER Referring Unavailable HILL, TAMIA AGNES Primary Care Unavailable SLADE, TREVOR Referring Unavailable SLADE, TREVOR Attending Unavailable HILL, TAMIA AGNES Primary Care Unavailable SLADE, TREVOR Referring Unavailable HILL, TAMIA AGNES Primary Care Unavailable SLADE, TREVOR Attending Unavailable SLADE, TREVOR Referring Unavailable SLADE, TREVOR Admitting Unavailable HILL, TAMIA AGNES Primary Care Unavailable SLADE, TREVOR Referring Unavailable SLADE, TREVOR Attending Unavailable HILL, TAMIA AGNES Primary Care Unavailable SELF Referring Unavailable SLADE, TREVOR Attending Unavailable HILL, TAMIA AGNES Primary Care Unavailable SLADE, TREVOR Referring Unavailable HILL, TAMIA AGNES Primary Care Unavailable SLADE, TREVOR Attending Unavailable SLADE, TREVOR Referring Unavailable HILL, TAMIA AGNES Primary Care Unavailable SLADE, TREVOR Referring Unavailable [facility] Primary Care Unavailable TREVOR LANCASTER Attending Unavailable SELF Referring Unavailable [facility] Primary Care Unavailable SELF Referring Unavailable [facility] Primary Care Unavailable SELF Referring Unavailable [facility], [facility] Primary Care Unavailable SELF Referring Unavailable [facility] Primary Care Unavailable [facility] Tamia [facility] Care Unavailable Trace Laughlin Admitting Unavailable Trace Laughlin Attending Unavailable Sakshi Marley Consulting Unavailable Shama Chan Consulting Unavailable Paola Shirley Consulting Unavailable Makayla Bermudez Consulting Unavailable Barbara Montemayor Consulting Unavailable Isabel Chairez Consulting Unavailable Luciana Hughes Consulting Unavailable Yusef Pereira Consulting Unavailable Manish Soliman Consulting UnavailKumar Humphries Consulting Unavailable Krystal Andres Consulting Unavailable Mandi Kim Consulting Unavailable Jonathan Bravo Consulting Unavailable Parvin Santo Consulting UnavailRony Sibley Consulting Unavailable Charlie Whitfield Consulting Unavailable Boyd Bhat Consulting Unavailable Kym Correia Consulting Unavailable Mandi Louise Consulting Unavailable Nay Maloney Consulting Unavailable Naun Vazquez Consulting Unavailable Rosa Stark Consulting Unavailable Jens Szymanski Consulting Unavailable Kyler Hess Consulting UnavailGodwin Schafer Consulting Unavailable Johnson Lucio Consulting Unavailable Cassy Koch Consulting Unavailable Neto Tomlinson Consulting Unavailable Harriett Troncoso Consulting Unavailable Ever Brewer Consulting Unavailable Juani Whalen Consulting Unavailable Fawad Benavidez Consulting Unavailable Mechelle Obrien Consulting Unavailable Fanny Espinal Consulting Unavailable Raiza Bauer Consulting Unavailable Liliana Alastephanie Consulting Unavailable Carlos Champion Consulting Unavailable Sarwat Hernandez Consulting Unavailable Phan Massey Consulting Unavailable Dayo Lucio Consulting Unavailable Jhonathan Ramírez Consulting Unava windyable Мария Moralez Consulting Unavailable Bernice Shah Consulting Unavailable Garry Meza Consulting Unavailable Federica Enamorado Consulting Unavailable Nancy Galvez Admitting Unavailable [facility] Tamia Primary Care Unavailable Nancy Galvez Attending Unavailable [facility] Tamia Primary Care Unavailable Lenard Chatterjee Attending Unavailable Lenard Chatterjee Admitting Unavailable Hill, Tamia Primary Care Unavailable Truman, Trace Attending Unavailable Truman, Trace Admitting Unavailable Hill, Tamia Primary Care Unavailable Bonnie, Gonzalo Hays Attending Unavailable Bonnie, Gonzalo Hays Admitting Unavailable Hill, Tamia Admitting Unavailable Hill, Tamia Primary Care Unavailable Hill, Tamia Attending Unavailable Hill, Tamia Referring Unavailable Hill, Tamia Primary Care Unavailable Risaliti, Cheryl Attending Unavailable Risaliti, Cheryl Admitting Unavailable Felter, Trip Attending Unavailable Felter, Trip Admitting Unavailable Hill, Tamia Primary Care Unavailable RISALITI, CHERYL R Attending Unavailable RISALITI, CHERYL R Attending Unavailable REJI, GORDON Davis Attending Unavailable HILL, TAMIA L Referring Unavailable REJI, GORDON Davis Referring Unavailable SOLOMON, MANDI Milan Attending Unavailable RISALITI, CHERYL R Attending Unavailable RISALITI, CHERYL R Attending Unavailable RISALITI, CHERYL R Referring Unavailable SAPP, TONY Barrera Attending Unavailable SOLOMON, MANDI Milan Attending Unavailable SOLOMON, MANDI Milan Referring Unavailable SOLOMON, MANDI Milan Attending Unavailable RISALITI, CHERYL Carias Attending Unavailable RISALITI, CHERYL R Referring Unavailable HILL, TAMIA L Referring Unavailable MARCIO, EAGLE Pacheco Attending Unavailable DIDION, MARILOU Davis Attending Unavailable DIDION, MARILOU Davis Referring Unavailable FINNERAN, DANIELA Attending Unavailable HILL, TAMIA L Referring Unavailable RISALITI, CHERYL R Attending Unavailable HILL, TAMIA L Referring Unavailable BONNIE, GONZALO F Admitting Unavailable BONNIE, GONZALO F Attending Unavailable TREVOR BISWAS Referring Unavailable HILL, TAMIA L Primary Care Unavailable MARIA DEL CARMEN PELAYO Consulting UnavailTREVIN [place] Referring Unavailable HILL, TAMIA L Primary Care Unavailable GHARAIBEH, KHALED Referring Unavailable HILL, TAMIA L Primary Care Unavailable GHARAIBEH, KHALED Referring Unavailable HILL, TAMIA L Primary Care Unavailable HILL, TAMIA L Referring Unavailable HILL, TAMIA L Primary Care Unavailable Medications Current Medications Medication Drug Class(es) Dates Sig (Normalized) Sig (Original) acetaminophen 500 mg oral tablet (9 sources) Start: 06-01-2024 End: 07-23-2024 take 1 tablet by mouth every six hours as needed for pain Acetaminophen 500 mg Tablet Active 500 MG PO Q6H as needed for Pain 0 June 01, 2024 12:00am acetaminophen 325 mg / HYDROcodone bitartrate 5 mg oral tablet (13 sources) Opioid Agonist Start: 09-20-2024 End: 12-28-2024 take 1-2 tablets by mouth every six hours for pain HYDROcodone-acetamin ophen ([place]) 5-325 MG tablet Indications: Primary osteoarthritis involving multiple joints Take 1-2 tablets by mouth every 6 (six) hours if needed for moderate pain 42 tablet 10/15/2024 12/28/2024 Discontinued (Therapy completed) acetaminophen 325 mg / oxyCODONE hydrochloride 5 mg oral tablet (20 sources) Opioid Agonist Start: 10-20-2024 End: 10-27-2024 take 1 tablet by mouth every six hours as needed for pain oxyCODONE-acetaminop hen (PERCOCET) 5-325 mg tablet Indications: pain Take 1 tablet by mouth every 6 hours as needed for pain for up to 7 days. 28 tablet 10/20/2024 10/27/2024 Active Start: 12-01-2019 End: 12-01-2019 take 1 tablet by mouth every four to six hours as needed for pain Oxycodone-Acetaminophen (Percocet) 5-325 mg Tablet Discontinued 1 TAB PO EVERY 4-6 HOURS as needed for Pain November 30, 2019 11:00pm December 01, 2019 1:12pm Start: 05-15-2017 End: 06-28-2019 take 1 tablet by mouth every four to six hours as needed for pain Oxycodone-Acetaminophen (Percocet) 5-325 mg Tablet Discontinued 1 TAB PO EVERY 4-6 HOURS as needed for Pain May 15, 2017 12:00am June 28, 2019 6:24am ALPRAZolam 0.25 mg oral tablet (20 sources) Benzodiazepine Start: 06-01-2024 take 1 tablet by mouth twice daily as needed for anxiety Alprazolam 0.25 mg Tablet Active 0.25 MG PO BID@0900,1400 as needed for Anxiety 0 June 01, 2024 12:00am Start: 01-29-2022 take 1 tablet by erin th every eight hours as needed ALPRAZolam (XANAX) 0.25 mg tablet Indications: anxiety Take 1 tablet (0.25 mg total) by mouth every 8 (eight) hours as needed Indications: anxious. 01/29/2022 Active Start: 11-22-2019 End: 07-24-2025 take 1 tablet by mouth three times daily as needed for anxiety ALPRAZolam (Xanax) 0.25 MG tablet Indications: Generalized anxiety disorder Take 1 tablet (0.25 mg) by mouth 3 (three) times a day as needed for anxiety 60 tablet 2 01/06/2025 Active take 1 tablet by erin th every twenty-four hours Xanax 0.25 MG 1 tablet Orally once a day Active Comment on above: Take 0.25 mg by mout h three times daily as needed. apixaban 5 mg oral tablet (20 sources) Factor Xa Inhibitor Start: 04-29-20 End: 10-28-19 take 1 tablet by mouth in the morning apixaban (Eliquis) 5 MG tablet Indications: History of CVA (cerebrovascular accident) Take 1 tablet (5 mg) by mouth in the morning and 1 tablet (5 mg) before bedtime. 60 tablet 5 09/13/2024 Active ARIPiprazole 5 mg oral tablet (4 sources) Atypical Antipsychotic Start: 01-22-20 End: 05-21-20 ARIPiprazole (Abilify) 5 MG tablet Indications: Moderate major depression (HCC) Take 1 tablet (5 mg) by mouth Daily Do not start before January 21, 2025. 30 tablet 3 01/21/2025 05/21/2025 Active Start: 01-14-2025 End: 01-21-2025 take 1 tablet by mouth once daily ARIPiprazole (Abilify) 2 MG tablet Indications: Moderate major depression (HCC) Take 1 tablet (2 mg) by mouth Daily for 7 days 7 tablet 01/14/2025 01/21/2025 Active ascorbate calcium-bioflavonoid (Colleen-C with Bioflavonoids) 1,000-200 mg tablet (6 sources) take 1 tablet by mouth in the morning ascorbate calcium-bioflavonoid (Colleen-C with Bioflavonoids) 1,000-200 mg tablet Take 1 tablet by mouth early in the morning.. Active aspirin 81 mg delayed release oral tablet (20 sources) Platelet Aggregation Inhibitor, Nonsteroidal Anti-inflammatory Drug Start : 07-13 take 1 tablet by mouth once daily in the morning Aspirin Low Dose 81 MG EC tablet Indications: Slurred speech TAKE 1 TABLET BY MOUTH EVERY DAY IN THE MORNING 90 tablet 4 07/13/2024 Active Start: 04-24-2023 take 1 tablet by erin th once daily in the morning [facility] Aspirin Low Dose 81 MG EC tablet Indications: Slurred speech TAKE 1 TABLET BY MOUTH EVERY MORNING 90 tablet 4 04/24/2023 Active Start: 07-17-2022 aspirin 81 mg Indications: Primary osteoarthritis of left hip 1 tab twice daily at 7:00 A.M. and 7:00 P.M. 84 tablet 07/17/2022 Active End: 07-23-2024 take 1 tablet by mouth once daily in the morning ASPIRIN 81 PO Take 1 tablet by mouth Daily in the Morning 07/23/2024 Discontinued (Therapy completed) take 1 tablet by erin th once daily in the morning ASPIRIN 81 PO Take 1 tablet by mouth Daily in the Morning Active baclofen 10 mg oral tablet (6 sources) gamma-Aminobutyric Acid-ergic Agonist Start: 04-29-2024 End: 06-18-2024 take 1 tablet by mouth three times daily as needed for muscle spasms baclofen (LIORESAL) 10 mg tablet Indications: TIA (transient ischemic attack) Take 1 tablet (10 mg total) by mouth 3 (three) times a day as needed for muscle spasms for up to 30 days. 45 tablet 05/19/2024 06/18/2024 Active Bioflavonoid Products (COLLEEN C PO) (14 sources) Bioflavonoid Products (COLLEEN C PO) Orally Active Bioflavonoid Pro ducts (COLLEEN C PO) Orally 0 Active biotin 10 mg oral tablet (14 sources) Start: 08-26-2023 take 1 tablet by mouth in the morning Biotin Maximum Strength 52461 MCG tablet Take 1 tablet by mouth in the morning. 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 60 tablet 11 07/03/2023 08/02/2023 Active 24 hr buPROPion hydrochloride 150 mg extended release oral tablet (20 sources) Aminoketone Start: 01-14-2025 End: 2025 take 1 tablet by mouth every twenty-four hours in the morning buPROPion XL (Wellbutrin XL) 150 MG 24 hr tablet Indications: Moderate major depression (HCC) Take 1 tablet (150 mg) by mouth in the morning. Do not crush, chew, or split. 30 tablet 3 01/14/2025 2025 Active Start: 01-10-2025 End: 01-14-2025 take 1 tablet by mouth once daily buPROPion XL (Wellbutrin XL) 300 MG 24 hr tablet Indications: Generalized anxiety disorder TAKE 1 TABLET (300 MG) BY MOUTH 1 (ONE) TIME EACH DAY AT THE SAME TIME. 90 tablet 3 01/10/2025 01/14/2025 Discontinued (Therapy completed) Start: 02-17-2024 take 1 tablet by erin th every twenty-four hours buPROPion XL (WELLBUTRIN XL) 300 mg 24 hr tablet Take 300 mg by mouth. 02/17/2024 Active Start: 11-09-2021 End: 10-06-2024 take 1 tablet by mouth once daily buPROPion XL (Wellbutrin XL) 300 MG 24 hr tablet Indications: Generalized anxiety disorder TAKE 1 TABLET (300 MG) BY MOUTH 1 (ONE) TIME EACH DAY AT THE SAME TIME. 90 tablet 3 02/17/2024 Active Start: 05-15-2017 End: 10-30-2017 take 1 tablet by mouth once daily buPROPion XL (Wellbutrin XL) 300 MG 24 hr tablet Indications: Generalized anxiety disorder (CMS/HCC) TAKE 1 TABLET (300 MG) BY MOUTH 1 (ONE) TIME EACH DAY AT THE SAME TIME. 90 tablet 3 02/17/2024 Active buPROPion HCl 30 0 mg Daily Active Comment on above: Take 300 mg by mouth once daily. [id number]-Zinc-C op-Josiah-Bor (20 sources) Start: 10-30-2017 take 1 tablet by mouth once daily Wti-[id number]-Zinc- Vvy-Byqk-Yrw Active 1 TAB PO Daily October 29, 2017 11:00pm Start: 10-30-2017 End: 10-30-2017 [id number]-Mwb-Ovve-I or Discontinued TABLET October 29, 2017 11:00pm October 30, 2017 1:59pm Start: 10-30-2017 take 1 tablet by erin th once daily [id number]-Obeu-Hyj-Rnqi-Ysx Active 1 TAB PO Daily October 30, 2017 12:00am Start: 10-30-2017 End: 10-30-2017 [id number]-Hmeo-Emr-Jryi-O or Discontinued TABLET October 30, 2017 12:00am October 30, 2017 2:59pm Calcium (6 sources) Phosphate Binder, Calcium Start: 10-30-2017 take 1 tablet by mouth once daily [id number]-Fyyk-Zyv-Veji-Mwn 600 mg calcium- 800 unit-50 mg Tablet Active 1 TAB PO Daily October 29, 2017 11:00pm Start: 10-30-2017 End: 10-30-2017 Lmy-B7-[id number]-Elst-Nub-Vetu-C or 600 mg calcium- 800 unit-50 mg Tablet Discontinued TABLET October 29, 2017 11:00pm October 30, 2017 1:59pm Calcium + D 500-1000-40 MG-U NT-MCG (13 sources) Calcium + D 500- 1000-40 MG-UNT-MCG Orally Active Calcium Carbonate / vitamin D3 (14 sources) take 1 tablet by erin th once daily calcium carbonate/vitamin D3 (CALTRATE WITH VITAMIN D3 ORAL) Take 1 tablet by mouth once daily. Active CALCIUM CARBONAT E/VITAMIN D3 (CALTRATE 600 + D ORAL) Take by mouth. Active Calcium Carbonate-Vit D-Min (CALTRATE 600+D PLUS MINERALS PO) (20 sources) Calcium Carbonat e-Vit D-Min (CALTRATE 600+D PLUS MINERALS PO) Take by mouth. Active Calcium Carbonat e-Vit D-Min (CALTRATE 600+D PLUS MINERALS PO) Take by mouth. 0 Active camphor 40 mg/ml / menthol 100 mg/ml / methyl salicylate 300 mg/ml topical cream (3 sources) Start: 06-01-2024 Camphor-Methyl Salicyl-Menthol (Muscle Rub Ultra-Strength) 4-30-10 % cream Active 1 APPLIC TOPICAL Three times daily as needed for pain 113 June 01, 2024 12:00am cephalexin 500 mg oral capsule (4 sources) Cephalosporin Antibacterial Start: 01-10-2025 End: 01-14-2025 CEPHalexin (KEFLEX) 500 mg capsule Indications: 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 , Aftercare following right hip joint replacement surgery Take 4 capsules one hour prior to dental procedure 12 capsule 2 01/10/2025 01/14/2025 Active Start: 02-17-2024 End: 02-17-2024 take 4 capsules by mouth once, then take 4 capsules by mouth every hour CEPHalexin (KEFLEX) 500 mg capsule Indications: Aftercare following right hip joint replacement surgery Take 4 capsules (2,000 mg total) by mouth once for 1 dose. Take four capsules one hour prior to dental procedure. 12 capsule 02/17/2024 02/17/2024 Active Start: 07-27-2023 End: 08-01-2023 take 1 capsule by mouth in the morning cephalexin (Keflex) 500 MG capsule Indications: Acute cystitis with hematuria Take 1 capsule (500 mg) by mouth in the morning and 1 capsule (500 mg) before bedtime. Do all this for 5 days. 10 capsule 0 07/27/2023 08/01/2023 Active cholecalciferol 0.025 mg oral capsule (20 sources) Vitamin D Start: 04-29-2024 take 1 capsule by mouth once daily Cholecalciferol (Vitamin D3) (Vitamin D3) 25 mcg (1,000 unit) capsule Active 25 MCG PO Daily April 29, 2024 12:00am cholecalciferol (Vitamin D3) 25 MCG (1000 UT) tablet 1 (one) time each day at the same time. Active take 1 capsule by mouth once kylee ly Cholecalciferol, Vitamin D3, 25 mcg (1,000 unit) cap Take 1,000 Units by mouth once daily. Active take 1 tablet by mouth once cristel y cholecalciferol (Vitamin D3) 50 MCG (2000 UT) tablet Take 1 tablet (50 mcg) by mouth once daily. Active CHOLECALCIFEROL, VITAMIN D3, (VITAMIN D3 ORAL) (8 sources) CHOLECALCIFEROL, VITAMIN D3, (VITAMIN D3 ORAL) Take by mouth. Active CYANOCOBALAMIN, VITAMIN B-12, (VITAMIN B-12 ORAL) (8 sources) CYANOCOBALAMIN, VITAMIN B-12, (VITAMIN B-12 ORAL) Take by mouth. Active cyclobenzaprine hydrochloride 10 mg oral tablet (20 sources) Muscle Relaxant Start: 11-24-19 End: 01-29-20 take 1 tablet by mouth every eight hours as needed cyclobenzaprine (FLEXERIL) 10 mg tablet TAKE 1 TABLET BY MOUTH THREE TIMES A DAY NEEDED FOR MUSCLE SPASM 90 tablet 12/29/2024 01/28/2025 Active Start: 11-13-2024 End: 11-27-2024 take 1 tablet by mouth twice daily as needed cyclobenzaprine (FLEXERIL) 10 mg tablet Indications: S/P foot surgery, left Take 1 tablet by mouth two times a day as needed for up to 14 days. 28 tablet 11/13/2024 11/27/2024 Active Start: 10-20-2024 End: 11-10-2024 take 1 tablet by mouth every eight hours as needed cyclobenzaprine (FLEXERIL) 10 mg tablet Take 1 tablet by mouth three times a day as needed for muscle spasm. 20 tablet 1 10/20/2024 11/10/2024 Discontinued Start: 08-11-2024 take 1 tablet by erin three times daily as needed for muscle spasms cyclobenzaprine (Flexeril) 5 MG tablet Indications: Neck pain Take 1 tablet (5 mg) by mouth 3 (three) times a day as needed for muscle spasms 30 tablet 08/11/2024 Active Start: 07-12-2024 take 1 tablet by erin twice daily as needed Cyclobenzaprine 5 mg tablet Active 5 MG PO Twice daily as needed for muscle cramp July 12, 2024 12:00am Start: 04-02-2024 End: 04-09-2024 take 1 tablet by mouth in the morning, then take 1 tablet by mouth in the evening, then take 1 tablet by mouth at bedtime cyclobenzaprine (Flexeril) 10 MG tablet Indications: Acute pain of right shoulder , Acute pain of left shoulder , Spasm of muscle of lower back Take 1 tablet (10 mg) by mouth in the morning and 1 tablet (10 mg) in the evening and 1 tablet (10 mg) before bedtime. Do all this for 7 days. 20 tablet 04/02/2024 Active 1 ml denosumab 60 mg/ml prefilled syringe (20 sources) RANK Ligand Inhibitor Start: 04-30-2021 End: 04-29-2024 denosumab (Prolia) 60 MG/ML solution prefilled syringe Indications: Age-related osteoporosis without current pathological fracture Inject 1 mL (60 mg) under the skin every 6 (six) months. 1 mL 1 01/07/2023 Active Colleen-C 500-550 MG (13 sources) Colleen-C 500-550 MG Orally Active ezetimibe 10 mg oral tablet (20 sources) Dietary Cholesterol Absorption Inhibitor Start: 12-16-2024 take 1 tablet by mouth once daily ezetimibe (Zetia) 10 MG tablet Indications: Pure hypercholesterolemia TAKE 1 TABLET BY MOUTH DAILY 90 tablet 3 12/16/2024 Active Start: 10-07-2023 End: 11-30-2024 take 1 tablet by mouth once daily ezetimibe (Zetia) 10 MG tablet Indications: Pure hypercholesterolemia TAKE 1 TABLET BY MOUTH DAILY 90 tablet 3 12/16/2024 Active folic acid 1 mg oral tablet (20 sources) Start: 11-12-2018 End: 10-07-2023 folic acid 1 mg tablet 12/22/2021 Active gabapentin 300 mg oral capsule (20 sources) Anti-epileptic Agent Start: 06-01-2024 take 1 capsule by mouth at bedtime Gabapentin 100 mg Capsule Active 100 MG PO Bedtime 90 June 01, 2024 12:00am Start: 10-03-2021 End: 12-28-2024 take 1 capsule by mouth at bedtime gabapentin (Neurontin) 300 MG capsule Take 300 mg by mouth at bedtime 08/09/2024 12/28/2024 Discontinued (Therapy completed) Start: 10-03-2021 End: 10-05-2024 take 1 capsule by mouth at bedtime gabapentin (Neurontin) 300 MG capsule Take 300 mg by mouth at bedtime 08/09/2024 Active Comment on above: Take by mouth. lidocaine 0.04 mg/mg medicated patch (2 sources) Antiarrhythmic, Amide Local Anesthetic Start: 07-12-19 apply 1 dose topically once daily as needed for pain Lidocaine 4 % adhesive patch,medicated Active 1 PATCH TOPICAL Daily as needed for pain July 12, 2024 12:00am methocarbamol 500 mg oral tablet (5 sources) Muscle Relaxant Start: 06-01-20 End: 06-23-19 25 take 1 tablet by mouth every six hours as needed for muscle spasms Methocarbamol 500 mg Tablet Active 500 MG PO Q6H as needed for Muscle Spasm 120 June 01, 2024 12:00am Multiple Vitamins-Minerals (PRESERVISION AREDS 2 PO) (20 sources) Multiple Vitamins-Minerals (PRESERVISION AREDS 2 PO) 1 (one) time each day at the same time. Active Multiple Vitamin s-Minerals (PRESERVISION AREDS 2 PO) 1 (one) time each day at the same time. 0 Active omeprazole 40 mg delayed release oral capsule (20 sources) Proton Pump Inhibitor Start: 06-23-2024 take 1 capsule by mouth twice daily Omeprazole 40 mg capsule,delayed release(DR/EC) Active 40 MG PO Twice daily 60 June 23, 2024 12:00am Start: 01-01-2024 End: 06-01-2024 take 1 capsule by mouth twice daily Omeprazole 40 mg capsule,delayed release(DR/EC) Discontinued 40 MG PO Twice daily 60 January 01, 2024 7:01am June 01, 2024 9:29am Start: 09-22-2023 End: 01-01-2024 take 1 capsule by mouth once daily Omeprazole 40 mg capsule,delayed release(DR/EC) Discontinued 40 MG PO Daily 30 September 21, 2023 11:00pm January 01, 2024 7:03am Start: 03-18-2023 End: 09-22-2023 take 1 capsule by mouth twice daily Omeprazole 40 mg Capsule,Delayed Release(Dr/Ec) Discontinued 40 MG PO 2 times daily March 17, 2023 11:00pm September 22, 2023 7:54am Start: 12-01-2018 End: 04-09-2022 Omeprazole Discontinued 40 M G PO As Directed December 01, 2019 2:12pm April 09, 2022 6:47am Start: 11-30-2018 End: 04-09-2022 Omeprazole 40 mg capsule,del ayed release(DR/EC) Discontinued 40 MG PO As Directed December 01, 2019 1:12pm April 09, 2022 5:47am pantoprazole 40 mg delayed release oral tablet (3 sources) Proton Pump Inhibitor Start: 06-01-2024 take 1 tablet by mouth twice daily Pantoprazole 40 mg Tablet,Delayed Release (Dr/Ec) Active 40 MG PO Twice daily 60 June 01, 2024 12:00am PNV Comb No.59/Iron/FA/DHA (-DHA ORAL) (20 sources) PNV Comb No.59/Iron/FA/DHA (-DHA ORAL) Take by mouth. Active PNV Comb No.59/I patty/FA/DHA (-DHA ORAL) Take by mouth. 0 Active Comment on above: Take by mouth. predniSONE 20 mg oral tablet (20 sources) Start: 04-02-2024 predniSONE (Deltasone) 20 MG tablet Indications: Acute pain of right shoulder , Acute pain of left shoulder Take two tablets once a day for 5 days 10 tablet 04/02/2024 Active Start: 12-09-2022 take 7.5 mg by mouth in the morning predniSONE (Deltasone) 5 MG tablet Take 7.5 mg by mouth in the morning. 0 12/09/2022 Active Start: 02-25-2022 End: 10-05-2024 predniSONE (DELTASONE) 1 mg tablet 02/25/2022 10/05/2024 Discontinued Start: 11-12-2018 End: 04-29-2024 take 3 mg by mouth once daily Prednisone 10 mg tablet Discontinued 3 MG PO Daily November 11, 2018 11:00pm April 29, 2024 5:33pm Start: 11-12-2018 take 3 mg by mouth once daily Prednisone Active 3 MG PO Daily November 12, 2018 12:00am Start: 11-12-2018 take 4 mg by mouth once daily Prednisone Active 4 MG PO Daily November 12, 2018 12:00am Start: 11-12-2018 take 5 mg by mouth once daily Prednisone Active 5 MG PO Daily November 12, 2018 12:00am Start: 11-12-2018 take 10 mg by mouth once daily Prednisone Active 10 MG PO Daily November 12, 2018 12:00am take 2 tablets by mo ut once daily predniSONE (Deltasone) 1 MG tablet Take 2 tablets by mouth Daily Active take 3 tablets by mo uth once daily predniSONE (Deltasone) 1 MG tablet Take 3 tablets by mouth Daily Active take 1 tablet by erin th once daily predniSONE 2 MG 1 tablet Orally Once a day for 30 day(s) Active vit 91/iron/folic/d gutierrez ( + DHA ORAL) (6 sources) take 1 tablet by mouth in the morning vit 91/iron/folic/dha ( + DHA ORAL) Take 1 tablet by mouth early in the morning.. Active Vitamins 0.8 MG (13 sources) take 1 [...] bedtime. 30 tablet 5 05/12/2023 11/08/2023 Active vit A/vit C/vit E/zinc/copper (PRESERVISION AREDS ORAL) (6 sources) take 1 tablet by mouth once daily vit A/vit C/vit E/zinc/copper (PRESERVISION AREDS ORAL) Take 1 tablet by mouth once daily. Active vit C/E/Zn/coppr/lutein /zeaxan (PRESERVISION AREDS-2 ORAL) (20 sources) vit C/E/Zn/coppr/lutein/ zeaxan (PRESERVISION AREDS-2 ORAL) Take by mouth. Active vit C/E/Zn/coppr /lutein/zeaxan (PRESERVISION AREDS-2 ORAL) Take by mouth. 0 Active Comment on above: Take by mouth. Vitamin B-12 1000 MCG (2 sources) take [...] 1 TAB PO Daily August 12, 2017 12:00am Start: 08-12-2017 take 1 tablet by erin th once daily Cyanocobalamin (Vitamin B-12) (Vitamin B-12) 500 mcg Tablet Active 1 TAB PO Daily August 12, 2017 1:00am Start: 02-16-2010 take 1 tablet under the tongue once daily CYANOCOBALAMIN (VITAMIN B-12) 1,000 MCG SUBLINGUAL TAB Take one(1) tablet daily. 0 02/16/2010 Active take 1 tablet by erin th every other day cyanocobalamin (Vitamin B-12) 500 mcg tablet Take 1 tablet (500 mcg) by mouth every other day. Active take 1 tablet by erin th every twenty-four hours Vitamin B-12 1000 MCG 1 tablet Orally Once a day Active Comment on above: Take one(1) tablet d aily. Completed/Discontinued Medications Medication Drug Class(es) Dates Sig (Normalized) Sig (Original) ascorbic acid 500 mg chewable tablet (6 sources) Vitamin C End: 07-23-2024 take 1 tablet by mouth once daily ascorbic acid (Vitamin C) 500 MG tablet Take 500 mg by mouth Daily 07/23/2024 Discontinued (Therapy completed) Ascorbate Calcium-Bioflavono id (20 sources) Vitamin C Start: 10-30-2017 End: 04-29-2024 take 500-550 mg by mouth once daily Ascorbate Calcium-Bioflavonoi d (Colleen-C With Bioflavonoids) 500-200 mg Tablet Discontinued 500 - 550 MG PO Daily October 29, 2017 11:00pm April 29, 2024 5:33pm Start: 10-30-2017 take 500-550 mg by m [...] oflavonoids (COLLEEN C ORAL) Take by mouth. Active ascorbic acid/bi oflavonoids (COLLEEN C ORAL) Take by mouth. 0 Active Comment on above: Take by mouth. betamethasone 3 mg/ml / betamethasone acetate 3 mg/ml injectable suspension (4 sources) Corticosteroid Start: 09-28-2024 End: 09-28-2024 betamethasone acetate-betamethasone sodium phosphate (Celestone) injection 3 mg Start: 09-28-2024 End: 09-28-2024 3 mg, Intra-articular, Once PRN Procedure, Starting on Fri09/28/24 at 1049, For 1 dose calcium carbonate 1500 mg / cholecalciferol 800 unt chewable tablet (20 sources) Vitamin D Start: 08-12-2017 End: 10-01-2017 take 1 tablet by mouth twice daily Calcium Carbonate-Vitamin D3 (Caltrate 600 Plus D) 600 mg (1,500 mg)-800 unit Tablet,Chewable Discontinued 1 TAB PO Twice daily August 12, 2017 12:00am October 01, 2017 8:58am Start: 02-16-2010 calcium carbon ate/vitamin d3(CALCIUM 600 + D(3) 600 MG (1,500)-200 UNIT TAB) Take one(1) tablet twice daily. 0 02/16/2010 Active Comment on above: Take one(1) tablet t wice daily. diclofenac sodium 0.01 mg/mg topical gel (18 sources) Nonsteroidal Anti-inflammatory Drug Start: 05-15-2017 End: 10-01-2017 Diclofenac Sodium 1 % gel Discontinued 1 APPLIC TOPICAL Daily as needed for knee pain May 15, 2017 12:00am October 01, 2017 8:58am estrogens, conjugated ([facility]) 0.625 mg/ml vaginal cream (18 sources) Estrogen Start: 08-12-2017 End: 10-01-2017 Conjugated Estrogens 0.625 mg/gram cream Discontinued 0.625 MG Twice a Week August 12, 2017 12:00am October 01, 2017 8:58am hydrocortisone 10 mg/ml / neomycin 3.5 mg/ml / polymyxin b 45450 unt/ml otic suspension (11 sources) Aminoglycoside Antibacterial, Polymyxin-class Antibacterial, Corticosteroid Start: 11-07-2021 Aatfoyvt-Tisqjuaaw-VW [id number] 3 drops right ear Three times a day for 7 days October, Not-Taking Start: 11-07-2021 lisinopril 10 mg oral tablet (19 sources) Angiotensin Converting Enzyme Inhibitor Start: 04-24-2023 End: 04-29-2024 take 1 tablet by mouth once daily Lisinopril 10 mg tablet Discontinued 10 MG PO Daily October 06, 2023 11:00pm April 29, 2024 5:33pm methotrexate 2.5 mg oral tablet (20 sources) Folate Analog Metabolic Inhibitor Start: 11-12-2018 End: 10-05-2024 methotrexate 2.5 mg tablet 12/07/2021 10/05/2024 Discontinued [id number]-Nbfye Acid ( Multi) 27-800 mg-mcg Tablet (18 sources) Start: 10-30-2017 End: 04-29-2024 take 1 tablet by mouth once daily Xp582-Ppug-Nqyea Acid ( Multi) 27-800 mg-mcg Tablet Discontinued 1 TAB PO Daily October 29, 2017 11:00pm April 29, 2024 5:33pm Start: 10-30-2017 take 1 tablet by erin th once daily Al286-Zxgz-Yceur Acid ( Multi) 27-800 mg-mcg Tablet Active 1 TAB PO Daily October 29, 2017 11:00pm Start: 10-30-2017 take 1 tablet by erin th once daily Mu519-Pymq-Cxtdc Acid ( Multi) 27-800 mg-mcg Tablet Active 1 TAB PO Daily October 30, 2017 12:00am regadenoson (Lexiscan) injection 0.4 mg (1 source) Start: 08-12-2024 End: 08-12-2024 0.4 mg, intravenous, Once, On Naomie 08/12/24 at 1400, For 1 dose solifenacin succinate 10 mg oral tablet (18 sources) Cholinergic Muscarinic Antagonist Start: 05-15-2017 End: 08-12-2017 take 1 tablet by mouth once daily Solifenacin (Vesicare) 10 mg Tablet Discontinued 10 MG PO Daily May 15, 2017 12:00am August 12, 2017 10:09am Tc-99m tetrofosmin (Myoview) injection 10 millicurie (1 source) Start: 08-12-2024 End: 08-12-2024 10 millicurie, intravenous, Once in imaging, Starting on Naomie 08/12/24 at 1300, For 1 dose, Administer 45 to 90 minutes prior to imaging unless otherwise indicated. Tc-99m tetrofosmin (Myoview) injection 30 millicurie (1 source) Start: 08-12-2024 End: 08-12-2024 30 millicurie, intravenous, Once in imaging, Starting on Naomie 08/12/24 at 1444, For 1 dose, Administer 45 to 90 minutes prior to imaging unless otherwise indicated. traMADol hydrochloride 50 mg oral tablet (20 sources) Opioid Agonist Start: 01-04-2020 End: 10-06-2024 traMADol (ULTRAM) 50 mg tablet Take by mouth. 01/04/2020 10/06/2024 Discontinued (Course of therapy completed) Start: 01-04-2020 traMADol (ULTR AM) 50 mg tablet Take by mouth. 0 01/04/2020 Active Comment on above: Take by mouth. Vit C,Y-Eq-Ztqps-Lutein -Zeaxan (Preservision Areds-2) [id number] ii-mdre-tj-mg Capsule (18 sources) Start: 10-30-2017 End: 04-29-2024 take 1 tablet by mouth once daily Vit C,Z-Ok-Ppnza-Lutein-Pauly janina (Preservision Areds-2) 101-572-84-1 ic-ukjb-pn-mg Capsule Discontinued 1 TAB PO Daily October 29, 2017 11:00pm April 29, 2024 5:33pm Start: 10-30-2017 take 1 tablet by erin th once daily Vit C,X-Qw-Irgif-Lutein-Zeaxan (Preservision Areds-2) [phone] md-rzam-ry-mg Capsule Active 1 TAB PO Daily October 29, 2017 11:00pm Start: 10-30-2017 take 1 tablet by erin th once daily Vit C,G-Nt-Ldmcj-Lutein-Zeaxan (Preservision Areds-2) [id number] cv-zakk-ou-mg Capsule Active 1 TAB PO Daily October 30, 2017 12:00am Problems Active Problems Problem Classification Problem Date Documented Da te Episodic/Chronic Acquired foot deformities (6 sources) Tailor's bunion of left foot; Translations: [Bunionette of left foot] Onset: 5 09-24-2024 Episodic Acute cerebrovascular disease (20 sources) Cerebral infarction due to thrombosis of middle cerebral artery; Translations: [Cerebral infarction due to thrombosis of left middle cerebral artery] Onset: 3 Resolved: 5 07-07-2023 Chronic Anxiety disorders (20 sources) Generalized anxiety disorder; Translations: [Generalized anxiety disorder] Onset: 3 Resolved: 3 10-21-2022 Chronic Cancer of other female genital organs (20 sources) Carcinoma in situ of vagina; Translations: [Carcinoma in situ of vagina] Onset: 0 01-23-2010 Chronic Cardiac dysrhythmias (12 sources) Paroxysmal supraventricular tachycardia; Translations: [Paroxysmal SVT (supraventricular tachycardia)] Onset: 5 07-22-2024 Chronic Diabetes mellitus without complication (20 sources) Diabetes mellitus; Translations: [Type 2 diabetes mellitus without complications] Onset: 5 02-16-2010 Chronic Disorders of lipid metabolism (20 sources) Hyperlipidemia; Translations: [Hyperlipidemia, unspecified] Onset: 3 02-16-2010 Chronic Diverticulosis and diverticulitis (13 sources) Diverticular disease of colon; Translations: [Diverticulosis of intestine, part unspecified, without perforation or abscess without bleeding] Chronic E Codes: Fall (4 sources) Fall; Translations: [Unspecified fall, initial encounter] 07-12-2024 Episodic Endometriosis (20 sources) Endometriosis (clinical); Translations: [Endometriosis, unspecified] Onset: 5 02-16-2010 Chronic Gastroduodenal ulcer (except hemorrhage) (20 sources) Gastrojejunal ulcer; Translations: [Gastrojejunal ulcer, unspecified as acute or chronic, without hemorrhage or perforation] Onset: 4 01-27-2019 Chronic Genitourinary symptoms and ill-defined conditions (2 sources) Dysuria; Translations: [Dysuria] 07-27-2023 Episodic Gout and other crystal arthropathies (20 sources) Chondrocalcinosis of joint of left knee; Translations: [Other chondrocalcinosis, left knee] Onset: 2 02-27-2022 Chronic Hemorrhoids (13 sources) Hemorrhoids; Translations: [Unspecified hemorrhoids] Episodic Immunizations and screening for infectious disease (1 source) Raised antibody titer; Translations: [RAISED ANTIBODY TITER] Onset: Episodic Inflammation; infection of eye (except that caused by tuberculosis or sexually transmitteddisease) (2 sources) Viral conjunctivitis; Translations: [Viral conjunctivitis, unspecified] 03-11-2024 Episodic Late effects of cerebrovascular disease (3 sources) 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; Translations: [Hemiplegia and hemiparesis following unspecified cerebrovascular disease affecting left non-dominant side] Onset: 5 09-24-2024 Chronic Mood disorders (20 sources) Depressive disorder; Translations: [Depression] Onset: 3 Resolved: 3 02-16-2010 Chronic Mood disorders (8 sources) Mood disorders; Translations: [Depression, unspecified depression type] Onset: 0 Resolved: 5 04-24-2024 Osteoarthritis (20 sources) Unilateral primary osteoarthritis, left hip; Translations: [Localized, primary osteoarthritis] Onset: 7 Resolved: 3 Chronic Osteoporosis (20 sources) Age-related osteoporosis without current pathological fracture; Translations: [Senile osteoporosis] Onset: 2 Resolved: 3 10-21-2022 Chronic Other acquired deformities (4 sources) Contracture of joint of left foot; Translations: [Contracture, left foot] Onset: 5 09-24-2024 Chronic Other acquired deformities (1 source) Contracture, left foot; Translations: [Foot contracture, left] Onset: 5 Chronic Other aftercare (11 sources) Patient encounter status; Translations: [Aftercare following joint replacement surgery] Onset: 3 03-06-2023 Chronic Other aftercare (1 source) Other [facility] (current) drug therapy; Translations: [OTH [facility] CURRENT DRUG THERAPY] Onset: 3 Episodic Other aftercare (1 source) Taking high risk medication; Translations: [Other medical terminologist (current) drug therapy] 07-22-2024 Episodic Other aftercare (2 sources) Patient encounter status; Translations: [Other medical terminologist (current) drug therapy] 07-26-2024 Episodic Other aftercare (2 sources) Removal of sutures done; Translations: [Encounter for removal of sutures] 07-30-2024 Episodic Other circulatory disease (20 sources) History of cerebrovascular accident; Translations: [Personal history of transient ischemic attack (TIA), and cerebral infarction without residual deficits] Onset: 3 05-28-2023 Episodic Other circulatory disease (10 sources) History of transient ischemic attack; Translations: [Personal history of transient ischemic attack (TIA), and cerebral infarction without residual deficits] Onset: 5 07-22-2024 Episodic Other congenital anomalies (2 sources) Left metatarsus adductus; Translations: [Congenital metatarsus adductus, left foot] 09-24-2024 Chronic Other connective tissue disease (20 sources) Polymyalgia rheumatica; Translations: [Polymyalgia rheumatica] Onset: 8 02-26-2022 Chronic Other connective tissue disease (2 sources) Polymyalgia rheumatica; Translations: [Polymyalgia rheumatica (Multi)] Onset: 5 Chronic Other connective tissue disease (1 source) Pain of bilateral hands; Translations: [Pain in right hand] 02-26-2022 Episodic Other connective tissue disease (2 sources) Pain of right upper arm; Translations: [Pain in right upper arm] 08-11-2024 Episodic Other connective tissue disease (6 sources) Pain in right thumb; Translations: [Pain in right finger(s)] 09-10-2024 Episodic Other connective tissue disease (2 sources) Deformity of lower limb; Translations: [Contracture of muscle, left lower leg] 09-24-2024 Episodic Other connective tissue disease (1 source) Contracture of muscle, left lower leg; Translations: [Gastrocnemius equinus of left lower extremity] Onset: 5 Episodic Other diseases of bladder and urethra (10 sources) Neurogenic bladder; Translations: [Neuromuscular dysfunction of bladder, unspecified] Onset: 5 06-22-2024 Chronic Other diseases of bladder and urethra (4 sources) Neuromuscular dysfunction of bladder, unspecified; Translations: [Neurogenic bladder NOS] Onset: 4 06-02-2024 Chronic Other gastrointestinal disorders (13 sources) Diarrhea; Translations: [Diarrhea, unspecified] Episodic Other gastrointestinal disorders (13 sources) Swollen abdomen; Translations: [Abdominal distension (gaseous)] Episodic Other injuries and conditions due to external causes (1 source) Injury of head; Translations: [Unspecified injury of head, initial encounter] 07-22-2024 Episodic Other lower respiratory disease (18 sources) Dyspnea; Translations: [Dyspnea, unspecified] Onset: 4 12-08-2023 Episodic Other nervous system disorders (20 sources) Chronic pain; Translations: [Other chronic pain] 09-09-2023 Chronic Other nervous system disorders (20 sources) Other chronic pain; Translations: [Other chronic pain] Onset: 1 Resolved: 2 Chronic Other nervous system disorders (4 sources) Difficulty walking; Translations: [Difficulty in walking, not elsewhere classified] Onset: 5 09-24-2024 Chronic Other nervous system disorders (1 source) Difficulty in walking, not elsewhere classified; Translations: [Difficulty walking] Onset: 5 Chronic Other nervous system disorders (1 source) Other acute postprocedural pain; Translations: [Post-op pain] Onset: 5 Episodic Other non-traumatic joint disorders (1 source) Bilateral shoulder joint pain; Translations: [Pain in right shoulder] 02-26-2022 Episodic Other non-traumatic joint disorders (2 sources) Decreased range of shoulder movement; Translations: [Stiffness of unspecified shoulder, not elsewhere classified] 08-11-2024 Episodic Other non-traumatic joint disorders (1 source) Pain in unspecified hip; Translations: [Pain in joint, pelvic region and thigh] Onset: 5 01-07-2025 Episodic Other nutritional; endocrine; and metabolic disorders (13 sources) Body mass index 25-29 - overweight; Translations: [Body mass index (BMI) 28.0-28.9, adult] Episodic Other skin disorders (2 sources) Localized swelling of right hand; Translations: [Localized swelling, mass and lump, right upper limb] 08-11-2024 Episodic Paralysis (14 sources) Left hemiplegia; Translations: [Hemiplegia, unspecified affecting left nondominant side] Onset: 4 06-22-2024 Chronic Residual codes; unclassified (8 sources) Body mass index 20-24 - normal; Translations: [Body mass index (BMI) 24.0-24.9, adult] Onset: 5 07-22-2024 Episodic Residual codes; unclassified (4 sources) Body mass index (BMI) 24.0-24.9, adult; Translations: [Body mass index (BMI) 24.0-24.9, adult] Onset: 5 Episodic Residual codes; unclassified (2 sources) Pain; Translations: [Pain, unspecified] 09-24-2024 Episodic Residual codes; unclassified (11 sources) Postoperative state; Translations: [Other specified postprocedural states] 10-26-2024 Episodic Residual codes; unclassified (1 source) Other specified postprocedural states; Translations: [Post-operative state] Onset: 5 Episodic Spondylosis; intervertebral disc disorders; other back problems (20 sources) Lumbosacral spondylosis without myelopathy; Translations: [Spondylosis without myelopathy or radiculopathy, lumbosacral region] Onset: 1 Resolved: 3 Chronic Systemic lupus erythematosus and connective tissue disorders (4 sources) Giant cell arteritis with polymyalgia rheumatica; Translations: [GIANT CELL ARTERIT POLYMYALG RHEUM] Onset: 3 Chronic Transient cerebral ischemia (3 sources) Transient cerebral ischemia; Translations: [Transient cerebral ischemic attack, unspecified] Onset: 4 06-28-2024 Chronic Unclassified (2 sources) Body mass index 20-24 - normal 07-22-2024 Unclassified (1 source) Congenital metatarsus adductus, left foot; Translations: [Metatarsus adductus of left foot] Onset: 5 Urinary tract infections (2 sources) Acute cystitis; Translations: [Acute cystitis with hematuria] 07-27-2023 Episodic Past or Other Problems Problem Classification Problem Date Documented Da te Episodic/Chronic Abdominal pain (20 sources) Epigastric pain; Translations: [Epigastric pain] Onset: 02-04-2024 09-07-2023 Episodic Administrative/social admission (9 sources) Impaired mobility; Translations: [Other reduced mobility] Onset: 04-29-2024 06-22-2024 Episodic Diabetes mellitus without complication (1 source) Hyperglycemia, unspecified; Translations: [HYPERGLYCEMIA UNSPECIFIED] Onset: 12-31-2021 Episodic Joint disorders and dislocations; trauma-related (20 sources) Tear of lateral meniscus of knee; Translations: [Other tear of lateral meniscus, current injury, unspecified knee, initial encounter] Onset: 03-17-2007 03-17-2007 Episodic Menopausal disorders (20 sources) Atrophy of vagina; Translations: [Postmenopausal atrophic vaginitis] Onset: 10-21-2022 Resolved: 11-22-2022 11-22-2022 Chronic Nonmalignant breast conditions (20 sources) Fibrocystic disease of breast; Translations: [Diffuse cystic mastopathy of unspecified breast] Onset: 10-21-2022 Resolved: 11-22-2022 11-22-2022 Chronic Open wounds of head; neck; and trunk (4 sources) Scalp laceration; Translations: [Laceration without foreign body of scalp, initial encounter] Onset: 07-22-2024 07-22-2024 Episodic Other bone disease and musculoskeletal deformities (1 source) Other specified disorders of bone density and structure, unspecified site; Translations: [OTH D/O BONE DEN STRUCT UNS SITE] Onset: 06-13-2022 Episodic Other circulatory disease (5 sources) Personal history of transient ischemic attack (TIA), and cerebral infarction without residual deficits; Translations: [Personal history of transient ischemic attack (TIA), and cerebral infarction without residual deficits] Onset: 07-22-2024 Episodic Other connective tissue disease (20 sources) History of total hip arthroplasty; Translations: [Presence of left artificial hip joint] Onset: 09-03-2022 Resolved: 06-01-2023 06-01-2023 Chronic Other connective tissue disease (20 sources) Enthesopathy of hip region; Translations: [Other specified enthesopathies of unspecified lower limb, excluding foot] Onset: 12-30-2006 12-30-2006 Episodic Other connective tissue disease (20 sources) Pain in limb; Translations: [Pain in unspecified limb] Onset: 10-21-2022 Resolved: 11-22-2022 11-22-2022 Episodic Other female genital disorders (20 sources) Dysplasia of vagina; 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, unspecified] Resolved: 07-12-2010 07-12-2010 Episodic Other gastrointestinal disorders (20 sources) History of bypass of stomach; Translations: [Bariatric surgery status] Onset: 12-31-2021 10-05-2024 Episodic Other gastrointestinal disorders (2 sources) Bariatric surgery status; Translations: [BARIATRIC SURGERY STATUS] Onset: 12-31-2021 Episodic Other gastrointestinal disorders (20 sources) History of bariatric surgical procedure; Translations: [Bariatric surgery status] Onset: 11-22-2022 11-22-2022 Episodic Other gastrointestinal disorders (20 sources) Dysphagia; Translations: [Dysphagia, unspecified] Onset: 02-04-2024 12-08-2023 Episodic Other gastrointestinal disorders (8 sources) Dysphagia, unspecified; Translations: [Dysphagia, unspecified] Onset: 04-29-2024 12-08-2023 Episodic Other injuries and conditions due to external causes (1 source) Other specified injuries of head, initial encounter; Translations: [Other specified injuries of head, initial encounter] Onset: 07-12-2024 Episodic Other nervous system disorders (20 sources) Carpal tunnel syndrome; Translations: [Carpal tunnel syndrome, unspecified upper limb] Onset: 10-21-2022 Resolved: 11-22-2022 11-22-2022 Chronic Other nervous system disorders (3 sources) General unsteadiness; Translations: [Unsteadiness on feet] Onset: 04-24-2023 04-24-2023 Episodic Other nervous system disorders (20 sources) Paresthesia of hand ; Translations: [Paresthesia of skin] Onset: 10-21-2022 Resolved: 11-22-2022 11-22-2022 Episodic Other nervous system disorders (1 source) Other lack of coordination; Translations: [Other lack of coordination] Onset: 10-04-2024 Episodic Other non-traumatic joint disorders (20 sources) Pain in right shoulder; Translations: [Pain in joint, shoulder region] Onset: 04-19-2024 04-02-2024 Episodic Other non-traumatic joint disorders (20 sources) Pain in left shoulder; Translations: [Pain in joint, shoulder region] Onset: 04-19-2024 04-02-2024 Episodic Other screening for suspected conditions (not mental disorders or infectious disease) (20 sources) Encounter for screening for lipoid disorders; Translations: [Cardiovascular measurement - finding] Onset: 12-28-2021 Episodic Other upper respiratory disease (20 sources) Feeling of lump in throat; Translations: [Globus sensation] Onset: 02-04-2024 12-08-2023 Episodic Residual codes; unclassified (2 sources) Pain, unspecified; Translations: [Pain, unspecified] Onset: 04-25-2024 Episodic Residual codes; unclassified (1 source) Other specified health status; Translations: [Other specified health status] Onset: 04-29-2024 Episodic Screening and history of mental health and substance abuse codes (20 sources) Ex-smoker; Translations: [Personal history of nicotine dependence] Onset: 07-22-2024 07-22-2024 Episodic Spondylosis; intervertebral disc disorders; other back problems (20 sources) Low back pain; Translations: [Other low back pain] Onset: 02-27-2022 10-21-2022 Episodic Unclassified (9 sources) Other low back pain; Translations: [Other low back pain] Unclassified (9 sources) Other low back pain M54.59 Onset: 05-28-2021 Resolved: 02-07-2022 Unclassified (1 source) Cardiovascular measurement - finding 06-29-2024 Unclassified (6 sources) Onset: 07-22-2024 07-22-2024 Unclassified (2 sources) Acute pain of right shoulder 08-11-2024 Results Test Name Value Interpretation Reference Range Facility [facility] 01-11-2025 CNOV Office Visit (PDAVON ) -- DELORIS BAE ([id number]) 1955 F Date Time Provider Department 01/11/25 1:15 PM TREVOR LANCASTER During your visit today, we recorded the following information about you: Trevor Lancaster DPM 01/11/2025 2:11 PM Signed Deloris Bae 69 year old female January 11, 2025 Pain Scales: Verbal (Numeric Rating or Visual Analog Scale) Pain Level: 0 Pain Location: Foot-Left Description: Tenderness Duration Amount of Time: 12 Duration Units: Weeks (post op) Frequency: Intermittent Comments: She is here for a 12 week post op of the left foot. Surgery performed on 10/20/24. HPI: Patient presents for postop follow up. Patient has been doing well with minimal discomfort. Denies nausea, vomiting, fever, chills, sweats, shortness of breath. No new complaints. Wearing regular street shoes today Use cane O: No pain out of proportion. Calf soft nontender, no signs of Deep Venous thrombosis. Good range of motion of the ankle and midfoot. Anterior tibial tendon transfer functioning well Gait with significant improvement / near neutral Steppage gait with drop foot ,however, significant improvement from pre operative A: Progressing well post operative Z86.73 History of CVA (cerebrovascular accident) (primary encounter diagnosis) M21.372 Left foot drop M24.575 Foot contracture, left G81.94 Hemiparesis of left nondominant side, unspecified hemiparesis etiology (HCC) R26.2 Difficulty walking P: activity as tolerated if no symptoms with or without CAM walker boot Medically necessary for custom ankle foot orthosis (AFO) Type of brace or insert requested: custom ankle foot orthosis (AFO) with hinge ankle dorsiflexion assist How it will help with ADL (activities of daily living) : brace will provide mechanical support and assist with ambulation and ADL (activities of daily living) specifically will help patient to community ambulate Length of time needed for durable medical equipment device : Medically necessary Duration of Need for custom ankle foot orthosis : LIFETIME Diagnosis codes that support the medically necessity of brace: Z86.73 History of CVA (cerebrovascular accident) (primary encounter diagnosis) M21.372 Left foot drop M24.575 Foot contracture, left G81.94 Hemiparesis of left nondominant side, unspecified hemiparesis etiology (HCC) R26.2 Difficulty walking I gave out my personal mobile telephone number [phone] to call at anytime if needed Trevor Lancaster DPM Referring Provider: TREVOR LANCASTER [[id number]] Allergies As of Date: 01/11/2025 (No Known Allergies) Date Reviewed: 01/11/2025 Reviewed by: Jose Roberts OCCA - Fully Assessed Reason for Visit: Established Patient [175] Post Op [174] Primary Visit Diagnosis:History of CVA (cerebrovascular accident) [Z86.73] Other Visit Diagnoses:Left foot drop [M21.372] Foot contracture, left [M24.575] Hemiparesis of left nondominant side, unspecified hemiparesis etiology (HCC) [G81.94] Difficulty walking [R26.2] Order(s):CONSULT TO ORTHOTIC/PROSTHETIC [[id number]] Order #: [id number] Prescriptions as of 01/11/2025 - cyclobenzaprine (FLEXERIL) 10 mg tablet TAKE 1 TABLET BY MOUTH THREE TIMES A DAY NEEDED FOR MUSCLE SPASM - Cholecalciferol, Vitamin D3, 25 mcg (1,000 unit) cap Take 1,000 Units by mouth once daily. - ezetimibe (ZETIA) 10 mg tablet Take 10 mg by mouth once daily. - omeprazole (PRILOSEC) 40 mg capsule Take 40 mg by mouth two times a day. - buPROPion XL (WELLBUTRIN XL) 300 mg 24 hr tablet Take 300 mg by mouth. - denosumab (PROLIA) 60 mg/mL Inject 60 mg subcutaneously once every 6 months. - apixaban (ELIQUIS) 5 mg tab(s) Take 5 mg by mouth two times a day. - ALPRAZolam (XANAX) 0.25 mg tablet Take 0.25 mg by mouth three times daily as needed. - folic acid 1 mg tablet - ascorbic acid/bioflavonoids (COLLEEN C ORAL) Take by mouth. - vit C/E/Zn/coppr/lutein/zeaxan (PRESERVISION AREDS-2 ORAL) Take by mouth. - PNV Comb No.59/Iron/FA/DHA (-DHA ORAL) Take by mouth. - calcium carbonate/vitamin d3(CALCIUM 600 + D(3) 600 MG (1,500)-200 UNIT TAB) Take one(1) tablet twice daily. - CYANOCOBALAMIN (VITAMIN B-12) 1,000 MCG SUBLINGUAL TAB Take one(1) tablet daily. Problem List As Of Date 01/11/2025 Noted Resolved ENTHESOPATHY OF HIP [M76.899] 12/30/2006 OA (OSTEOARTHRITIS) LOCALIZED, PRIMARY( Lower L*12/30/2006 TEAR LAT MENISC KNEE-CURRENT [S83.289A] 03/17/2007 Severe Vaginal Dysplasia [D07.2] 01/23/2010 Endometriosis [N80.9] Vaginal dysplasia [N89.3] 07/12/2010 Arthritis [M19.90] Hyperlipidemia [E78.5] Depression [F32.A] Diabetes [E11.9] PMR (polymyalgia rheumatica) ([facility]) [M35.3] 02/27/2022 Chondrocalcinosis of left knee [M11.262] 02/27/2022 Primary osteoarthritis involving multiple joint*02/27/2022 DDD (degenerative disc disease), lumbosacral [M*02/27/[address] (more content not included)... [facility] CNOVon 11-30-2024 CNOV Office Visit (PDAVON ) -- DELORIS BAE ([id number]) 1955 F Date Time Provider Department 11/30/24 3:15 PM TREVOR LANCASTER During your visit today, we recorded the following information about you: Trevor Lancaster DPM 11/30/2024 3:47 PM Signed This 69 year old female presents today for post-op visit. Deloris Christiansen Catalino Date of service: November 30, 2024 HPI: Patient presents for postop follow up. Short leg neutral fiberglass cast removed Patient has been doing well with minimal discomfort. Denies nausea, vomiting, fever, chills, sweats, shortness of breath. No new complaints. O: Neurovascular status is grossly intact. Surgical site without signs of infection, no dehisence. Minimal residual edema consistent with surgical intervention. Incisions healed. No pain out of proportion. Alignment good. ROM as expected. Calf soft nontender, no signs of Deep Venous thrombosis. See Epic photo uploaded today: November 30, 2024 A: Progressing well post op P: Continue protective measures with support. Fit and dispense tall CAM walker boot to allow very limited weight bearing. I discussed with the patient home rehabilitation Will begin formal physical therapy in 6 weeks Return to the office in 6 weeks for reevaluation or sooner should problems arise. Call if any problems arise prior to next visit. I gave out my personal mobile telephone number [phone] to call at anytime if needed. Instructed that if I am not available should contact the solutions operator block breaker operator or go to the emergency room. Trevor Lancaster D.P.M. Referring Provider: TREVRO LANCASTER [[id number]] Allergies As of Date: 11/30/2024 (No Known Allergies) Date Reviewed: 11/10/2024 Reviewed by: Jose Roberts OCCA - Fully Assessed Primary Visit Diagnosis:Post-operative state [Z98.890] Prescriptions as of 11/30/2024 - cyclobenzaprine (FLEXERIL) 10 mg tablet Take 1 tablet by mouth three times a day as needed for muscle spasm. - Cholecalciferol, Vitamin D3, 25 mcg (1,000 unit) cap Take 1,000 Units by mouth once daily. - ezetimibe (ZETIA) 10 mg tablet Take 10 mg by mouth once daily. - omeprazole (PRILOSEC) 40 mg capsule Take 40 mg by mouth two times a day. - buPROPion XL (WELLBUTRIN XL) 300 mg 24 hr tablet Take 300 mg by mouth. - denosumab (PROLIA) 60 mg/mL Inject 60 mg subcutaneously once every 6 months. - apixaban (ELIQUIS) 5 mg tab(s) Take 5 mg by mouth two times a day. - ALPRAZolam (XANAX) 0.25 mg tablet Take 0.25 mg by mouth three times daily as needed. - folic acid 1 mg tablet - ascorbic acid/bioflavonoids (COLLEEN C ORAL) Take by mouth. - vit C/E/Zn/coppr/lutein/zeaxan (PRESERVISION AREDS-2 ORAL) Take by mouth. - PNV Comb No.59/Iron/FA/DHA (-DHA ORAL) Take by mouth. - calcium carbonate/vitamin d3(CALCIUM 600 + D(3) 600 MG (1,500)-200 UNIT TAB) Take one(1) tablet twice daily. - CYANOCOBALAMIN (VITAMIN B-12) 1,000 MCG SUBLINGUAL TAB Take one(1) tablet daily. Problem List As Of Date 11/30/2024 Noted Resolved ENTHESOPATHY OF HIP [M76.899] 12/30/2006 OA (OSTEOARTHRITIS) LOCALIZED, PRIMARY( Lower L*12/30/2006 TEAR LAT MENISC KNEE-CURRENT [S83.289A] 03/17/2007 Severe Vaginal Dysplasia [D07.2] 01/23/2010 Endometriosis [N80.9] Vaginal dysplasia [N89.3] 07/12/2010 Arthritis [M19.90] Hyperlipidemia [E78.5] Depression [F32.A] Diabetes [E11.9] PMR (polymyalgia rheumatica) ([facility]) [M35.3] 02/27/2022 Chondrocalcinosis of left knee [M11.262] 02/27/2022 Primary osteoarthritis involving multiple joint*02/27/2022 DDD (degenerative disc disease), lumbosacral [M*02/27/2022 Spinal stenosis of lumbosacral region [M48.07] 02/27/2022 Former smoker [Z87.891] 07/22/2024 History of CVA (cerebrovascular accident) [Z86.*05/28/2023 History of gastric bypass [Z98.84] 12/31/2021 Encounter Status:Closed by TREVOR LANCASTER on 11/30/24 [facility] CNOV Office Visit (ORAVON ) -- DELORIS BAE ([id number]) 1955 F Date Time Provider Department 11/30/24 3:00 PM CAST TECH SADE ORAVON During your visit today, we recorded the following information about you: Trip Carlson OCCA 11/30/2024 3:36 PM Signed PT ASSESSMENT - CASTING ROOM Deloris presents for cast removal and Application of boot. Examined by Dr. Lancaster. Ermelinda with David Johnson/Krissy applied pneumatic aircast walker to Left leg. Device will be billed by David Johnson/Krissy. Patient has been instructed in Care of boot. SARAH Porras Referring Provider: TREVOR LANCASTER [[id number]] Allergies As of Date: 11/30/2024 (No Known Allergies) Date Reviewed: 11/10/2024 Reviewed by: Jose Roberts OCCA - Fully Assessed Primary Visit Diagnosis:Post-operative state [Z98.890] Prescriptions as of 11/30/2024 - cyclobenzaprine (FLEXERIL) 10 mg tablet Take 1 tablet by mouth three times a day as needed for muscle spasm. - Cholecalciferol, Vitamin D3, 25 mcg (1,000 unit) cap Take 1,000 Units by mouth once daily. - ezetimibe (ZETIA) 10 mg tablet Take 10 mg by mouth once daily. - omeprazole (PRILOSEC) 40 mg capsule Take 40 mg by mouth two times a day. - buPROPion XL (WELLBUTRIN XL) 300 mg 24 hr tablet Take 300 mg by mouth. - denosumab (PROLIA) 60 mg/mL Inject 60 mg subcutaneously once every 6 months. - apixaban (ELIQUIS) 5 mg tab(s) Take 5 mg by mouth two times a day. - ALPRAZolam (XANAX) 0.25 mg tablet Take 0.25 mg by mouth three times daily as needed. - folic acid 1 mg tablet - ascorbic acid/bioflavonoids (COLLEEN C ORAL) Take by mouth. - vit C/E/Zn/coppr/lutein/zeaxan (PRESERVISION AREDS-2 ORAL) Take by mouth. - PNV Comb No.59/Iron/FA/DHA (-DHA ORAL) Take by mouth. - calcium carbonate/vitamin d3(CALCIUM 600 + D(3) 600 MG (1,500)-200 UNIT TAB) Take one(1) tablet twice daily. - CYANOCOBALAMIN (VITAMIN B-12) 1,000 MCG SUBLINGUAL TAB Take one(1) tablet daily. Problem List As Of Date 11/30/2024 Noted Resolved ENTHESOPATHY OF HIP [M76.899] 12/30/2006 OA (OSTEOARTHRITIS) LOCALIZED, PRIMARY( Lower L*12/30/2006 TEAR LAT MENISC KNEE-CURRENT [S83.289A] 03/17/2007 Severe Vaginal Dysplasia [D07.2] 01/23/2010 Endometriosis [N80.9] Vaginal dysplasia [N89.3] 07/12/2010 Arthritis [M19.90] Hyperlipidemia [E78.5] Depression [F32.A] Diabetes [E11.9] PMR (polymyalgia rheumatica) (HCC) [M35.3] 02/27/2022 Chondrocalcinosis of left knee [M11.262] 02/27/2022 Primary osteoarthritis involving multiple joint*02/27/2022 DDD (degenerative disc disease), lumbosacral [M*02/27/2022 Spinal stenosis of lumbosacral region [M48.07] 02/27/2022 Former smoker [Z87.891] 07/22/2024 History of CVA (cerebrovascular accident) [Z86.*05/28/2023 History of gastric bypass [Z98.84] 12/31/2021 Encounter Status:Closed by TRIP CARLSON on 11/30/24 [facility] XR FOOT 3V AP/LAT/OBL LTon 0 11-30-2024 * * *Final Report* * * DATE [...] Postoperative changes related to second toe arthrodesis Fiber Optics Supervisor: RIMMA Transcribe Date/Time: Nov 30 2024 3:53P Dictated by : HODA OLIVEIRA MD This examination was interpreted and the report reviewed and electronically signed by: HODA OLIVEIRA MD on Nov 30 2024 3:54PM EST [id number] [facility], Radiologi MD vivian - 11/30/2024 * * *Final Report* * [...] Postoperative changes related to second toe arthrodesis Fiber Optics Supervisor: RIMMA Transcribe Date/Time: Nov 30 2024 3:53P Dictated by : HODA OLIVEIRA MD This examination was interpreted and the report reviewed and electronically signed by: HODA OLIVEIRA MD on Nov 30 2024 3:54PM EST [id number] [facility] XR FOOT 3V AP/LAT/OBL LTOrde red By: Radiologist Radiology on 11-30-2024 [facility] Office Visit (AMIRAH ) -- DELORIS BAE ([id number]) 1955 F Date Time Provider Department 11/25/24 1:15 PM TREVOR LANCASTER During your visit today, we recorded the following information about you: Trevor Lancaster DPM 11/25/2024 1:45 PM Signed This 69 year old female presents today for post-op visit. Date of service: November 25, 2024 No chief complaint on file. /Pain Level: 4 Pain Location: Foot-Left Description: Aching, Cramping, Pulsating, Spasm, Tenderness Duration Units: Days Frequency: Continuous Intervention/Comfort measure: Medication, Reposition, Relaxation Comments: Elevates HPI: Patient presents for postop follow up. Patient has been doing well with minimal discomfort. Denies nausea, vomiting, fever, chills, sweats, shortness of breath. No new complaints. O: Neurovascular status is grossly intact. Surgical site without signs of infection, no dehisence. Moderate residual edema consistent with surgical intervention. Incisions well coapted. No pain out of proportion. Alignment good. ROM as expected. Calf soft nontender, no signs of Deep Venous thrombosis. A: Progressing well post op P: Continue protective measures with support. K-wire second toe removed NWB cast applied with cast shoe to allow very limited weight bearing. Return to the office in 3 weeks for reevaluation or sooner should problems arise. Call if any problems arise prior to next visit. Probable convert to CAM walker boot and begin physical therapy next visit I gave out my personal mobile telephone number [phone] to call at anytime if needed. Instructed that if I am not available should contact the solutions operator block breaker operator or go to the emergency room. Trevor Lancaster D.P.M. Referring Provider: SELF [[id number]] Allergies As of Date: 11/25/2024 (No Known Allergies) Date Reviewed: 11/10/2024 Reviewed by: Jose Roberts OCCA - Fully Assessed Primary Visit Diagnosis:Post-operative state [Z98.890] Order(s):XR FOOT GENERAL 3V AP/LAT/OBL LEFT [[id number]] Order #: [id number] FUTURE Prescriptions as of 11/25/2024 - cyclobenzaprine (FLEXERIL) 10 mg tablet Take 1 tablet by mouth three times a day as needed for muscle spasm. - cyclobenzaprine (FLEXERIL) 10 mg tablet Take 1 tablet by mouth two times a day as needed for up to 14 days. - Cholecalciferol, Vitamin D3, 25 mcg (1,000 unit) cap Take 1,000 Units by mouth once daily. - ezetimibe (ZETIA) 10 mg tablet Take 10 mg by mouth once daily. - omeprazole (PRILOSEC) 40 mg capsule Take 40 mg by mouth two times a day. - buPROPion XL (WELLBUTRIN XL) 300 mg 24 hr tablet Take 300 mg by mouth. - denosumab (PROLIA) 60 mg/mL Inject 60 mg subcutaneously once every 6 months. - apixaban (ELIQUIS) 5 mg tab(s) Take 5 mg by mouth two times a day. - ALPRAZolam (XANAX) 0.25 mg tablet Take 0.25 mg by mouth three times daily as needed. - folic acid 1 mg tablet - ascorbic acid/bioflavonoids (COLLEEN C ORAL) Take by mouth. - vit C/E/Zn/coppr/lutein/zeaxan (PRESERVISION AREDS-2 ORAL) Take by mouth. - PNV Comb No.59/Iron/FA/DHA (-DHA ORAL) Take by mouth. - calcium carbonate/vitamin d3(CALCIUM 600 + D(3) 600 MG (1,500)-200 UNIT TAB) Take one(1) tablet twice daily. - CYANOCOBALAMIN (VITAMIN B-12) 1,000 MCG SUBLINGUAL TAB Take one(1) tablet daily. Problem List As Of Date 11/25/2024 Noted Resolved ENTHESOPATHY OF HIP [M76.899] 12/30/2006 OA (OSTEOARTHRITIS) LOCALIZED, PRIMARY( Lower L*12/30/2006 TEAR LAT MENISC KNEE-CURRENT [S83.289A] 03/17/2007 Severe Vaginal Dysplasia [D07.2] 01/23/2010 Endometriosis [N80.9] Vaginal dysplasia [N89.3] 07/12/2010 Arthritis [M19.90] Hyperlipidemia [E78.5] Depression [F32.A] Diabetes [E11.9] PMR (polymyalgia rheumatica) ([facility]) [M35.3] 02/27/2022 Chondrocalcinosis of left knee [M11.262] 02/27/2022 Primary osteoarthritis involving multiple joint*02/27/2022 DDD (degenerative disc disease), lumbosacral [M*02/27/2022 Spinal stenosis of lumbosacral region [M48.07] 02/27/2022 Former smoker [Z87.891] 07/22/2024 History of CVA (cerebrovascular accident) [Z86.*05/28/2023 History of gastric bypass [Z98.84] 12/31/2021 Encounter Status:Closed by TREVOR LANCASTER on 11/25/24 [facility] CN Office Visit ([facility] ) -- DELORIS BAE ([id number]) 1955 F Date Time Provider Department 11/25/24 1:00 PM CAST [facility] During your visit today, we recorded the following information about you: Jose Roberts OCCA 11/25/2024 1:59 PM Signed Applied a short leg weight bearing cast to the left leg. Instruction given on care. Patient will follow up as scheduled/prn. SARAH Carolina Referring Provider: SELF [200] Allergies As of Date: 11/25/2024 (No Known Allergies) Date Reviewed: 11/10/2024 Reviewed by: Jose Roberts OCCA - Fully Assessed Primary Visit Diagnosis:Post-operative state [Z98.890] Prescriptions as of 11/25/2024 - cyclobenzaprine (FLEXERIL) 10 mg tablet Take 1 tablet by mouth three times a day as needed for muscle spasm. - cyclobenzaprine (FLEXERIL) 10 mg tablet Take 1 tablet by mouth two times a day as needed for up to 14 days. - Cholecalciferol, Vitamin D3, 25 mcg (1,000 unit) cap Take 1,000 Units by mouth once daily. - ezetimibe (ZETIA) 10 mg tablet Take 10 mg by mouth once daily. - omeprazole (PRILOSEC) 40 mg capsule Take 40 mg by mouth two times a day. - buPROPion XL (WELLBUTRIN XL) 300 mg 24 hr tablet Take 300 mg by mouth. - denosumab (PROLIA) 60 mg/mL Inject 60 mg subcutaneously once every 6 months. - apixaban (ELIQUIS) 5 mg tab(s) Take 5 mg by mouth two times a day. - ALPRAZolam (XANAX) 0.25 mg tablet Take 0.25 mg by mouth three times daily as needed. - folic acid 1 mg tablet - ascorbic acid/bioflavonoids (COLLEEN C ORAL) Take by mouth. - vit C/E/Zn/coppr/lutein/zeaxan (PRESERVISION AREDS-2 ORAL) Take by mouth. - PNV Comb No.59/Iron/FA/DHA (-DHA ORAL) Take by mouth. - calcium carbonate/vitamin d3(CALCIUM 600 + D(3) 600 MG (1,500)-200 UNIT TAB) Take one(1) tablet twice daily. - CYANOCOBALAMIN (VITAMIN B-12) 1,000 MCG SUBLINGUAL TAB Take one(1) tablet daily. Problem List As Of Date 11/25/2024 Noted Resolved ENTHESOPATHY OF HIP [M76.899] 12/30/2006 OA (OSTEOARTHRITIS) LOCALIZED, PRIMARY( Lower L*12/30/2006 TEAR LAT MENISC KNEE-CURRENT [S83.289A] 03/17/2007 Severe Vaginal Dysplasia [D07.2] 01/23/2010 Endometriosis [N80.9] Vaginal dysplasia [N89.3] 07/12/2010 Arthritis [M19.90] Hyperlipidemia [E78.5] Depression [F32.A] Diabetes [E11.9] PMR (polymyalgia rheumatica) ([facility]) [M35.3] 02/27/2022 Chondrocalcinosis of left knee [M11.262] 02/27/2022 Primary osteoarthritis involving multiple joint*02/27/2022 DDD (degenerative disc disease), lumbosacral [M*02/27/2022 Spinal stenosis of lumbosacral region [M48.07] 02/27/2022 Former smoker [Z87.891] 07/22/2024 History of CVA (cerebrovascular accident) [Z86.*05/28/2023 History of gastric bypass [Z98.84] 12/31/2021 Encounter Status:Closed by JOSE ROBERTS on 11/25/24 [facility] XR FOOT 3V AP/LAT/OBL LTon 0 11-25-2024 XR FOOT 3V AP/LAT/OBL LT * * *Final Report* * * [...] Postoperative changes related to second toe arthrodesis Fiber Optics Supervisor: RIMMA Transcribe Date/Time: Nov 30 2024 3:53P Dictated by : HODA OLIVEIRA MD This examination was interpreted and the report reviewed and electronically signed by: HODA OLIVEIRA MD on Nov 30 2024 3:54PM EST [id number] [facility] -- DELORIS BAE ([id number]) 1955 F Date Time Provider Department 11/10/24 3:00 PM CAST ALEJANDRO ZAMBRANO During your visit today, we recorded the following information about you: Evens Mckeon Cast Tech 11/10/2024 4:10 PM Signed Patient in today for scheduled appointment. Cast removed. Left leg cleansed with sea-clens and debrisoft. Examined by Dr. Lancaster. Applied A Short Leg Non-Weightbearing Cast to the left leg. Instructions on cast care given. A large Cast Shoe was dispensed for protection only. Will f/u as scheduled/prn. SHUBHAM Duarte Referring Provider: SELF [200] Allergies As of Date: 11/10/2024 (No Known Allergies) Date Reviewed: 11/10/2024 Reviewed by: Jose Roberts OCCA - Fully Assessed Primary Visit Diagnosis:Post-operative state [Z98.890] Prescriptions as of 11/10/2024 - cyclobenzaprine (FLEXERIL) 10 mg tablet Take 1 tablet by mouth three times a day as needed for muscle spasm. - Cholecalciferol, Vitamin D3, 25 mcg (1,000 unit) cap Take 1,000 Units by mouth once daily. - ezetimibe (ZETIA) 10 mg tablet Take 10 mg by mouth once daily. - omeprazole (PRILOSEC) 40 mg capsule Take 40 mg by mouth two times a day. - buPROPion XL (WELLBUTRIN XL) 300 mg 24 hr tablet Take 300 mg by mouth. - denosumab (PROLIA) 60 mg/mL Inject 60 mg subcutaneously once every 6 months. - apixaban (ELIQUIS) 5 mg tab(s) Take 5 mg by mouth two times a day. - ALPRAZolam (XANAX) 0.25 mg tablet Take 0.25 mg by mouth three times daily as needed. - folic acid 1 mg tablet - ascorbic acid/bioflavonoids (COLLEEN C ORAL) Take by mouth. - vit C/E/Zn/coppr/lutein/zeaxan (PRESERVISION AREDS-2 ORAL) Take by mouth. - PNV Comb No.59/Iron/FA/DHA (-DHA ORAL) Take by mouth. - calcium carbonate/vitamin d3(CALCIUM 600 + D(3) 600 MG (1,500)-200 UNIT TAB) Take one(1) tablet twice daily. - CYANOCOBALAMIN (VITAMIN B-12) 1,000 MCG SUBLINGUAL TAB Take one(1) tablet daily. Problem List As Of Date 11/10/2024 Noted Resolved ENTHESOPATHY OF HIP [M76.899] 12/30/2006 OA (OSTEOARTHRITIS) LOCALIZED, PRIMARY( Lower L*12/30/2006 TEAR LAT MENISC KNEE-CURRENT [S83.289A] 03/17/2007 Severe Vaginal Dysplasia [D07.2] 01/23/2010 Endometriosis [N80.9] Vaginal dysplasia [N89.3] 07/12/2010 Arthritis [M19.90] Hyperlipidemia [E78.5] Depression [F32.A] Diabetes [E11.9] PMR (polymyalgia rheumatica) (HCC) [M35.3] 02/27/2022 Chondrocalcinosis of left knee [M11.262] 02/27/2022 Primary osteoarthritis involving multiple joint*02/27/2022 DDD (degenerative disc disease), lumbosacral [M*02/27/2022 Spinal stenosis of lumbosacral region [M48.07] 02/27/2022 Former smoker [Z87.891] 07/22/2024 History of CVA (cerebrovascular accident) [Z86.*05/28/2023 History of gastric bypass [Z98.84] 12/31/2021 Encounter Status:Closed by EVENS MCKEON on 11/10/24 [facility] Office Visit (FRANKIEM ) -- DELORIS BAE ([id number]) 1955 F Date Time Provider Department 11/10/24 3:00 PM TREVOR LANCASTER During your visit today, we recorded the following information about you: Trevor Lancaster DPM 11/10/2024 4:24 PM Addendum This 69 year old female presents today for post-op visit. Date of service: November 10, 2024 Patient presents with: Left Foot - Established Patient, Post Op /Pain Scales: Verbal (Numeric Rating or Visual Analog Scale) Pain Level: 1 Pain Location: Foot-Left Description: Spasm Duration Amount of Time: 3 Duration Units: Weeks (post op) Frequency: Intermittent Intervention/Comfort measure: Medication (cast) Comments: She is here for a 3 week post op of the left foot. Surgery performed on 10/20/24. HPI: Patient presents for postop follow up. Patient has been doing well with minimal discomfort. Denies nausea, vomiting, fever, chills, sweats, shortness of breath. Complains of cramps Improved with Cyclobenzaprine ( Flexeril ) 10mg O: Surgical site without signs of infection, no dehisence. Moderate residual edema consistent with surgical intervention. Incisions well coapted. No pain out of proportion. ROM as expected. Calf soft nontender, no signs of Deep Venous thrombosis. Anterior tibial tendon transfer appears to be working with active ROM (Range of Motion) LEFT ANKLE A: Progressing well post op P: Continue protective measures with support. Sutures removed NWB neutral cast applied with cast shoe to allow very limited weight bearing. Return to the office in 2 weeks for planned cast change reevaluation or sooner should problems arise. Call if any problems arise prior to next visit. Rx Cyclobenzaprine ( Flexeril ) 10mg Side effects of medication discussed, warned of risks I gave out my personal mobile telephone number [phone] to call at anytime if needed. Instructed that if I am not available should contact the solutions operator block breaker operator or go to the emergency room. Trevor Lancaster D.P.M. Trevor Lancaster DPM 11/10/2024 4:25 PM Signed Addended by: TREVOR LANCASTER on: 11/10/2024 04:25 PM Modules accepted: Orders Referring Provider: SELF [200] Allergies As of Date: 11/10/2024 (No Known Allergies) Date Reviewed: 11/10/2024 Reviewed by: Jose Roberts OCCA - Fully Assessed Reason for Visit: Established Patient [175] Post Op [174] Primary Visit Diagnosis:Post-operative state [Z98.890] Prescriptions as of 11/10/2024 - Cholecalciferol, Vitamin D3, 25 mcg (1,000 unit) cap Take 1,000 Units by mouth once daily. - ezetimibe (ZETIA) 10 mg tablet Take 10 mg by mouth once daily. - omeprazole (PRILOSEC) 40 mg capsule Take 40 mg by mouth two times a day. - buPROPion XL (WELLBUTRIN XL) 300 mg 24 hr tablet Take 300 mg by mouth. - denosumab (PROLIA) 60 mg/mL Inject 60 mg subcutaneously once every 6 months. - apixaban (ELIQUIS) 5 mg tab(s) Take 5 mg by mouth two times a day. - ALPRAZolam (XANAX) 0.25 mg tablet Take 0.25 mg by mouth three times daily as needed. - folic acid 1 mg tablet - ascorbic acid/bioflavonoids (COLLEEN C ORAL) Take by mouth. - vit C/E/Zn/coppr/lutein/zeaxan (PRESERVISION AREDS-2 ORAL) Take by mouth. - PNV Comb No.59/Iron/FA/DHA (-DHA ORAL) Take by mouth. - calcium carbonate/vitamin d3(CALCIUM 600 + D(3) 600 MG (1,500)-200 UNIT TAB) Take one(1) tablet twice daily. - CYANOCOBALAMIN (VITAMIN B-12) 1,000 MCG SUBLINGUAL TAB Take one(1) tablet daily. Problem List As Of Date 11/10/2024 Noted Resolved ENTHESOPATHY OF HIP [M76.899] 12/30/2006 OA (OSTEOARTHRITIS) LOCALIZED, PRIMARY( Lower L*12/30/2006 TEAR LAT MENISC KNEE-CURRENT [S83.289A] 03/17/2007 Severe Vaginal Dysplasia [D07.2] 01/23/2010 Endometriosis [N80.9] Vaginal dysplasia [N89.3] 07/12/2010 Arthritis [M19.90] Hyperlipidemia [E78.5] Depression [F32.A] Diabetes [E11.9] PMR (polymyalgia rheumatica) ([facility]) [M35.3] 02/27/2022 Chondrocalcinosis of left knee [M11.262] 02/27/2022 Primary osteoarthritis involving multiple joint*02/27/2022 DDD (degenerative disc disease), lumbosacral [M*02/27/2022 Spinal stenosis of lumbosacral region [M48.07] 02/27/2022 Former smoker [Z87.891] 07/22/2024 History of CVA (cerebrovascular accident) [Z86.*05/28/2023 History of gastric bypass [Z98.84] 12/31/2021 Prescriptions ordered this encounter Disp Refills Start End CYCLOBENZAPRINE 10 MG TABLET 90 t* 0 11/10/2024 11/10/2024 Route: PO Sig: Take 1 tablet by mouth three times a day as needed for muscle spasm. Medications Discontinued During This Encounter Prescriptions - cyclobenzaprine (FLEXERIL) 10 mg tablet (Discontinued) Take 1 tablet by mouth three times a day as needed for muscle spasm. - cyclobenzaprine (FLEXERIL) 10 mg tablet (Discontinued) Take 1 tablet by mouth three times a day as needed for muscle spasm. Encount (more content not included)... Normal [facility] 10-28-2024 DANIA Telephone (BELIA) -- DELORIS BAE ([id number]) 1955 F Date Time Provider Department 10/28/24 TREVOR LANCASTER During your visit today, we recorded the following information about you: Trevor Lancaster DPM 10/28/2024 4:58 PM Signed Patient requests additional pain medication Rx sent for post operative pain medication Trevor Lancaster DPM Allergies As of Date: 10/28/2024 (No Known Allergies) Date Reviewed: 10/28/2024 Reviewed by: Mela Lomeli RN - Fully Assessed Primary Visit Diagnosis:Post-operative state [Z98.890] Order(s):HYDROcodone-aceta minophen (NORCO) 5-325 mg per tabletTake 1 tablet by mouth every 6 hours as needed for pain for up to 7 days.Disp: 28 tabletRfl: 0 Prescriptions as of 10/28/2024 - HYDROcodone-acetaminophen (NORCO) 5-325 mg per tablet Take 1 tablet by mouth every 6 hours as needed for pain for up to 7 days. - cyclobenzaprine (FLEXERIL) 10 mg tablet Take 1 tablet by mouth three times a day as needed for muscle spasm. - Cholecalciferol, Vitamin D3, 25 mcg (1,000 unit) cap Take 1,000 Units by mouth once daily. - ezetimibe (ZETIA) 10 mg tablet Take 10 mg by mouth once daily. - omeprazole (PRILOSEC) 40 mg capsule Take 40 mg by mouth two times a day. - buPROPion XL (WELLBUTRIN XL) 300 mg 24 hr tablet Take 300 mg by mouth. - denosumab (PROLIA) 60 mg/mL Inject 60 mg subcutaneously once every 6 months. - apixaban (ELIQUIS) 5 mg tab(s) Take 5 mg by mouth two times a day. - ALPRAZolam (XANAX) 0.25 mg tablet Take 0.25 mg by mouth three times daily as needed. - folic acid 1 mg tablet - ascorbic acid/bioflavonoids (COLLEEN C ORAL) Take by mouth. - vit C/E/Zn/coppr/lutein/zeaxan (PRESERVISION AREDS-2 ORAL) Take by mouth. - PNV Comb No.59/Iron/FA/DHA (-DHA ORAL) Take by mouth. - calcium carbonate/vitamin d3(CALCIUM 600 + D(3) 600 MG (1,500)-200 UNIT TAB) Take one(1) tablet twice daily. - CYANOCOBALAMIN (VITAMIN B-12) 1,000 MCG SUBLINGUAL TAB Take one(1) tablet daily. Problem List As Of Date 10/28/2024 Noted Resolved ENTHESOPATHY OF HIP [M76.899] 12/30/2006 OA (OSTEOARTHRITIS) LOCALIZED, PRIMARY( Lower L*12/30/2006 TEAR LAT MENISC KNEE-CURRENT [S83.289A] 03/17/2007 Severe Vaginal Dysplasia [D07.2] 01/23/2010 Endometriosis [N80.9] Vaginal dysplasia [N89.3] 07/12/2010 Arthritis [M19.90] Hyperlipidemia [E78.5] Depression [F32.A] Diabetes [E11.9] PMR (polymyalgia rheumatica) ([facility]) [M35.3] 02/27/2022 Chondrocalcinosis of left knee [M11.262] 02/27/2022 Primary osteoarthritis involving multiple joint*02/27/2022 DDD (degenerative disc disease), lumbosacral [M*02/27/2022 Spinal stenosis of lumbosacral region [M48.07] 02/27/2022 Former smoker [Z87.891] 07/22/2024 History of CVA (cerebrovascular accident) [Z86.*05/28/2023 History of gastric bypass [Z98.84] 12/31/2021 Prescriptions ordered this encounter Disp Refills Start End HYDROCODONE 5 MG-ACETAMINOPHEN 325 M* 28 t* 0 10/28/2024 11/04/2024 Route: ORAL Sig: Take 1 tablet by mouth every 6 hours as needed for pain for up to 7 days. Medications Discontinued During This Encounter Prescriptions - HYDROcodone-acetaminophen (NORCO) 5-325 mg per tablet (Discontinued) Take 1 tablet by mouth every 6 hours as needed for pain. Encounter Status:Closed by TREVOR LANCASTER on 10/28/24 [facility] CNPN Telephone (PDAVON) -- DELORIS BAE ([id number]) 1955 F Date Time Provider Department 10/28/24 TREVOR LANCASTER PDAYIMI During your visit today, we recorded the following information about you: Mela Lomeli RN 10/28/2024 9:36 AM Signed Patient calling. She is out of Percocet now and the pain is terrible. States that Tylenol doesn't touch the pain. Flexeril helps the muscle spasms/cramps, she only has 4 of those left. Cast seems fine. She asks for a refill of pain medication as well as flexeril. Pharmacy and nkda verified. Cell, detailed message please Karol Unger RN 10/28/2024 2:31 PM Signed Pt called to follow up on below. Made aware that office is still waiting for Provider to respond. No further needs raised. Pj JoseSARAH 10/29/2024 9:39 AM Signed Provider notified yesterday and medication refilled. Allergies As of Date: 10/28/2024 (No Known Allergies) Date Reviewed: 10/28/2024 Reviewed by: Mela Lomeli RN - Fully Assessed Reason for Visit: Patient Update - Pain [Other] Prescriptions as of 10/29/2024 - HYDROcodone-acetaminophen (NORCO) 5-325 mg per tablet Take 1 tablet by mouth every 6 hours as needed for pain for up to 7 days. - cyclobenzaprine (FLEXERIL) 10 mg tablet Take 1 tablet by mouth three times a day as needed for muscle spasm. - Cholecalciferol, Vitamin D3, 25 mcg (1,000 unit) cap Take 1,000 Units by mouth once daily. - ezetimibe (ZETIA) 10 mg tablet Take 10 mg by mouth once daily. - omeprazole (PRILOSEC) 40 mg capsule Take 40 mg by mouth two times a day. - buPROPion XL (WELLBUTRIN XL) 300 mg 24 hr tablet Take 300 mg by mouth. - denosumab (PROLIA) 60 mg/mL Inject 60 mg subcutaneously once every 6 months. - apixaban (ELIQUIS) 5 mg tab(s) Take 5 mg by mouth two times a day. - ALPRAZolam (XANAX) 0.25 mg tablet Take 0.25 mg by mouth three times daily as needed. - folic acid 1 mg tablet - ascorbic acid/bioflavonoids (COLLEEN C ORAL) Take by mouth. - vit C/E/Zn/coppr/lutein/zeaxan (PRESERVISION AREDS-2 ORAL) Take by mouth. - PNV Comb No.59/Iron/FA/DHA (-DHA ORAL) Take by mouth. - calcium carbonate/vitamin d3(CALCIUM 600 + D(3) 600 MG (1,500)-200 UNIT TAB) Take one(1) tablet twice daily. - CYANOCOBALAMIN (VITAMIN B-12) 1,000 MCG SUBLINGUAL TAB Take one(1) tablet daily. Problem List As Of Date 10/28/2024 Noted Resolved ENTHESOPATHY OF HIP [M76.166] 12/30/2006 OA (OSTEOARTHRITIS) LOCALIZED, PRIMARY( Lower L*12/30/2006 TEAR LAT MENISC KNEE-CURRENT [S83.289A] 03/17/2007 Severe Vaginal Dysplasia [D07.2] 01/23/2010 Endometriosis [N80.9] Vaginal dysplasia [N89.3] 07/12/2010 Arthritis [M19.90] Hyperlipidemia [E78.5] Depression [F32.A] Diabetes [E11.9] PMR (polymyalgia rheumatica) (HCC) [M35.3] 02/27/2022 Chondrocalcinosis of left knee [M11.262] 02/27/2022 Primary osteoarthritis involving multiple joint*02/27/2022 DDD (degenerative disc disease), lumbosacral [M*02/27/2022 Spinal stenosis of lumbosacral region [M48.07] 02/27/2022 Former smoker [Z87.891] 07/22/2024 History of CVA (cerebrovascular accident) [Z86.*05/28/2023 History of gastric bypass [Z98.84] 12/31/2021 Encounter Status:Closed by JOSE ROBERTS on 10/29/24 [facility] CNOVon 10-26-2024 CNOV Office Visit (SUKI ) -- DELORIS BAE ([id number]) 1955 F Date Time Provider Department 10/26/24 1:30 PM CAST TECH SADE COHN During your visit today, we recorded the following information about you: Trip Carlson OCCA 10/26/2024 3:54 PM Signed PT ASSESSMENT - CASTING ROOM Deloris presents for Application of cast. Padding applied to pin in left 2nd toe. Applied short leg cast: to Left leg non-weight bearing Patient has been instructed in Care of cast. SARAH Porras Referring Provider: SELF [200] Allergies As of Date: 10/26/2024 (No Known Allergies) Date Reviewed: 10/26/2024 Reviewed by: Jose Roberts OCCA - Fully Assessed Primary Visit Diagnosis:Post-operative state [Z98.890] Prescriptions as of 10/26/2024 - cyclobenzaprine (FLEXERIL) 10 mg tablet Take 1 tablet by mouth three times a day as needed for muscle spasm. - oxyCODONE-acetaminophen (PERCOCET) 5-325 mg tablet Take 1 tablet by mouth every 6 hours as needed for pain for up to 7 days. - Cholecalciferol, Vitamin D3, 25 mcg (1,000 unit) cap Take 1,000 Units by mouth once daily. - ezetimibe (ZETIA) 10 mg tablet Take 10 mg by mouth once daily. - omeprazole (PRILOSEC) 40 mg capsule Take 40 mg by mouth two times a day. - HYDROcodone-acetaminophen (NORCO) 5-325 mg per tablet Take 1 tablet by mouth every 6 hours as needed for pain. - buPROPion XL (WELLBUTRIN XL) 300 mg 24 hr tablet Take 300 mg by mouth. - denosumab (PROLIA) 60 mg/mL Inject 60 mg subcutaneously once every 6 months. - apixaban (ELIQUIS) 5 mg tab(s) Take 5 mg by mouth two times a day. - ALPRAZolam (XANAX) 0.25 mg tablet Take 0.25 mg by mouth three times daily as needed. - folic acid 1 mg tablet - ascorbic acid/bioflavonoids (COLLEEN C ORAL) Take by mouth. - vit C/E/Zn/coppr/lutein/zeaxan (PRESERVISION AREDS-2 ORAL) Take by mouth. - PNV Comb No.59/Iron/FA/DHA (-DHA ORAL) Take by mouth. - calcium carbonate/vitamin d3(CALCIUM 600 + D(3) 600 MG (1,500)-200 UNIT TAB) Take one(1) tablet twice daily. - CYANOCOBALAMIN (VITAMIN B-12) 1,000 MCG SUBLINGUAL TAB Take one(1) tablet daily. Problem List As Of Date 10/26/2024 Noted Resolved ENTHESOPATHY OF HIP [M76.899] 12/30/2006 OA (OSTEOARTHRITIS) LOCALIZED, PRIMARY( Lower L*12/30/2006 TEAR LAT MENISC KNEE-CURRENT [S83.289A] 03/17/2007 Severe Vaginal Dysplasia [D07.2] 01/23/2010 Endometriosis [N80.9] Vaginal dysplasia [N89.3] 07/12/2010 Arthritis [M19.90] Hyperlipidemia [E78.5] Depression [F32.A] Diabetes [E11.9] PMR (polymyalgia rheumatica) (HCC) [M35.3] 02/27/2022 Chondrocalcinosis of left knee [M11.262] 02/27/2022 Primary osteoarthritis involving multiple joint*02/27/2022 DDD (degenerative disc disease), lumbosacral [M*02/27/2022 Spinal stenosis of lumbosacral region [M48.07] 02/27/2022 Former smoker [Z87.891] 07/22/2024 History of CVA (cerebrovascular accident) [Z86.*05/28/2023 History of gastric bypass [Z98.84] 12/31/2021 Encounter Status:Closed by TRIP CARLSON on 10/26/24 [facility] CNOV Office Visit (PDAVON ) -- DELORIS BAE ([id number]) 1955 F Date Time Provider Department 10/26/24 1:15 PM TREVOR LANCASTER During your visit today, we recorded the following information about you: Trevor Lancaster DPM 10/26/2024 1:43 PM Signed This 69 year old female presents today for post-op visit. Date of service: October 26, 2024 Patient presents with: Left Foot - Established Patient, Post Op /Pain Scales: Verbal (Numeric Rating or Visual Analog Scale) Pain Level: 4 Pain Location: Foot-Left Description: Throbbing Duration Amount of Time: 1 Duration Units: Weeks (post op) Frequency: Continuous Intervention/Comfort measure: Medication Comments: She is here for a 1 week post op of the left foot. Surgery performed on 10/20/24. HPI: Patient presents for postop follow up. Patient has been doing well with minimal discomfort. Denies nausea, vomiting, fever, chills, sweats, shortness of breath. No new complaints. O: Surgical site without signs of infection, no dehisence. Moderate residual edema consistent with surgical intervention. Incisions well coapted. No pain out of proportion. Alignment good. ROM as expected. Calf soft nontender, no signs of Deep Venous thrombosis. A: Progressing well post op P: Continue protective measures with support. New sterile dressings applied NWB cast applied with cast shoe to allow very limited weight bearing. Return to the office in 2 weeks for reevaluation or sooner should problems arise. Call if any problems arise prior to next visit. I gave out my personal mobile telephone number [phone] to call at anytime if needed. Instructed that if I am not available should contact the solutions operator block breaker operator or go to the emergency room. Trevor Lancaster D.P.M. Referring Provider: SELF [200] Allergies As of Date: 10/26/2024 (No Known Allergies) Date Reviewed: 10/26/2024 Reviewed by: Jose Roberts OCCA - Fully Assessed Reason for Visit: Established Patient [175] Post Op [174] Primary Visit Diagnosis:Post-operative state [Z98.890] Prescriptions as of 10/26/2024 - cyclobenzaprine (FLEXERIL) 10 mg tablet Take 1 tablet by mouth three times a day as needed for muscle spasm. - oxyCODONE-acetaminophen (PERCOCET) 5-325 mg tablet Take 1 tablet by mouth every 6 hours as needed for pain for up to 7 days. - Cholecalciferol, Vitamin D3, 25 mcg (1,000 unit) cap Take 1,000 Units by mouth once daily. - ezetimibe (ZETIA) 10 mg tablet Take 10 mg by mouth once daily. - omeprazole (PRILOSEC) 40 mg capsule Take 40 mg by mouth two times a day. - HYDROcodone-acetaminophen (NORCO) 5-325 mg per tablet Take 1 tablet by mouth every 6 hours as needed for pain. - buPROPion XL (WELLBUTRIN XL) 300 mg 24 hr tablet Take 300 mg by mouth. - denosumab (PROLIA) 60 mg/mL Inject 60 mg subcutaneously once every 6 months. - apixaban (ELIQUIS) 5 mg tab(s) Take 5 mg by mouth two times a day. - ALPRAZolam (XANAX) 0.25 mg tablet Take 0.25 mg by mouth three times daily as needed. - folic acid 1 mg tablet - ascorbic acid/bioflavonoids (COLLEEN C ORAL) Take by mouth. - vit C/E/Zn/coppr/lutein/zeaxan (PRESERVISION AREDS-2 ORAL) Take by mouth. - PNV Comb No.59/Iron/FA/DHA (-DHA ORAL) Take by mouth. - calcium carbonate/vitamin d3(CALCIUM 600 + D(3) 600 MG (1,500)-200 UNIT TAB) Take one(1) tablet twice daily. - CYANOCOBALAMIN (VITAMIN B-12) 1,000 MCG SUBLINGUAL TAB Take one(1) tablet daily. Problem List As Of Date 10/26/2024 Noted Resolved ENTHESOPATHY OF HIP [M76.899] 12/30/2006 OA (OSTEOARTHRITIS) LOCALIZED, PRIMARY( Lower L*12/30/2006 TEAR LAT MENISC KNEE-CURRENT [S83.289A] 03/17/2007 Severe Vaginal Dysplasia [D07.2] 01/23/2010 Endometriosis [N80.9] Vaginal dysplasia [N89.3] 07/12/2010 Arthritis [M19.90] Hyperlipidemia [E78.5] Depression [F32.A] Diabetes [E11.9] PMR (polymyalgia rheumatica) ([facility]) [M35.3] 02/27/2022 Chondrocalcinosis of left knee [M11.262] 02/27/2022 Primary osteoarthritis involving multiple joint*02/27/2022 DDD (degenerative disc disease), lumbosacral [M*02/27/2022 Spinal stenosis of lumbosacral region [M48.07] 02/27/2022 Former smoker [Z87.891] 07/22/2024 History of CVA (cerebrovascular accident) [Z86.*05/28/2023 History of gastric bypass [Z98.84] 12/31/2021 Encounter Status:Closed by TREVOR LANCASTER on 10/26/24 Normal [facility] TISS PATH BX REPORTon 2024 AP DISCLAIMER [facility] Comment on above: Laboratory Developed Test (LDT) Disclaimer: Performance characteristics of immunohistochemical, immunofluorescent, and chromogenic in-situ hybridization tests have been determined by the performing laboratory within [facility] Pathology and Laboratory Medicine Department ([facility], [facility], [facility], [facility], [facility], [facility], or [facility]) in a manner consistent with CLIA requirements. One or more of these tests may not have been cleared or approved by the FDA. [facility] is regulated under CLIA as qualified to perform high-complexity testing. These tests are used for clinical purposes. These should not be regarded as investigational or for research. Positive and negative controls stain appropriately. [facility] CASE REPORT [facility] Comment on above: Surgical Pathology R eport Case: [id number] Authorizing Provider: Trevor Lancaster DPM Collected: 10/20/2024 12:30 PM Ordering Location: Ambulatory Surgery Received: 10/20/2024 03:19 PM Pathologist: Luz Elena Rojas MD Specimen: Bone and Soft Tissue, left foot [facility] CLINICAL HISTORY [facility] Comment on above: Pre-op diagnosis: Hemiparesis of left nondominant side as late effect of cerebrovascular disease, unspecified cerebrovascular disease type (HCC) [I69.954] Foot contracture, left [M24.575] Gastrocnemius equinus of left lower extremity [M62.462] 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 Bone, left fifth metatarsal head, excision: - Osteocartilaginous tissue with degenerative changes. at 1206 EDT [facility] FINAL PERFORMING LAB [facility] Comment on above: Diagnostic interpret ation performed at: [facility], [facility], Desk [place] [address] CLIA# [id number] National Sales Associate: Pepito Thayer MD [facility] GROSS DESCRIPTION [facility] Comment on above: A. Bone and Soft Tis joanna Received in formalin labeled left foot is an irregularly-shaped, firm bone excision measuring 1.5 x 0.9 x 0.5 cm. The external surface is markedly roughened. The cut surfaces are hobbs and trabeculated. Entirely submitted in cassette A1 after light decalcification in formic acid. [facility] October 21, 2024 9:56 AM Gross examination performed at [facility], [address] [place] [address] Specimen Type: TISSU E SPECIMEN Ordering Facility: [facility] Address: [address] [place] [address] Original Ordering Provider: TREVOR JEROME [facility] ANE POSTPROC EVALon 025 ANE POSTPROC EVAL HNO ID: [id number] Author: EVERETT SAMUEL MD Service: Anesthesiology Author Type: Physician Type: Anesthesia Postprocedure Evaluation Filed: 10/20/2024 15:12 Note Text: POST ANESTHESIA EVALUATION NOTE : 1955 Procedure Summary Date: 10/20/24 Room / Location: [address] Anesthesia Start: 1154 Anesthesia Stop: 1404 Procedures: TRANSFER TENDON EXTREMITY LOWER (Left: Foot) RECESSION GASTROCNEMIUS (Left: Foot) OSTECTOMY COMPLETE EXCISION METATARSAL HEAD FIFTH (Left: Foot) CAPSULOTOMY MIDFOOT WITH TENDON LENGTHENING (Left: Foot) Diagnosis: Hemiparesis of left nondominant side as late effect of cerebrovascular disease, unspecified cerebrovascular disease type (HCC) Foot contracture, left Gastrocnemius 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 Difficulty walking Tailor's bunion of left foot (Hemiparesis of left nondominant side as late effect of cerebrovascular disease, unspecified cerebrovascular disease type (HCC) [I69.954]) (Foot contracture, left [M24.575]) (Gastrocnemius equinus of left lower extremity [M62.462]) (Metatarsus adductus of left foot [Q66.222]) (Difficulty walking [R26.2]) (Tailor's bunion of left foot [M21.622]) Surgeons: Trevor Lancaster DPM Responsible Provider: Everett Samuel MD Anesthesia Type: general ASA Status: 3 Anesthesia Type: general Airway Type: LMA Last Vitals Vitals Value Taken Time BP 128/59 10/20/24 1440 Temp 36.7 ?C (98 ?F) 10/20/24 1406 Pulse 91 10/20/24 1448 Resp 16 10/20/24 1406 SpO2 97 % 10/20/24 1448 Vitals shown include unfiled device data. Post Anesthesia Patient Status Patient Evaluation: PACU. PACU/ICU Patient Condition: stable. Anticipated Disposition: phase 2 then home. Neurological Status: aware and responsive. Pulmonary Status: breathing comfortably on room air Airway Control: returned to baseline unsupported. Cardiovascular Status: stable. Pain Management: clinically adequate - multimodal analgesia pain management approach Postoperative Hydration: acceptable. Intraoperative Events: no significant anesthesia events Recommendation: continue current plan of care. Anesthesia Observations No Documentation SIGNATURE: Everett Samule MD PATIENT NAME: Deloris Bae DATE: October 20, 2024 TIME: 3:12 PM CSN: [id number] [facility] ANES PRE-OPon 10-20-2024 ANES PRE-OP HNO ID: [id number] Author: EVERETT SAMEUL MD Service: Anesthesiology Author Type: Physician Type: Anesthesia Preprocedure Evaluation Filed: 10/20/2024 09:45 Note Text: ANESTHESIOLOGY DAY OF SURGERY NOTE : 1955 Procedure Information Date/Time: 10/20/24 1030 Procedures: TRANSFER TENDON EXTREMITY LOWER (Left: Foot) RECESSION GASTROCNEMIUS (Left: Foot) OSTECTOMY COMPLETE EXCISION METATARSAL HEAD FIFTH (Left: Foot) CAPSULOTOMY MIDFOOT WITH TENDON LENGTHENING (Left: Foot) Location: [place] [address] / [facility] Surgeons: Trevor Lancaster DPM Estimated body mass index is 24.22 kg/m? as calculated from the following: Height as of 10/06/24: 162.6 cm (5' 4 ). Weight as of 10/06/24: 64 kg (141 lb 1.5 oz). Most recent hematocrit and potassium results: Hematocrit 37.7 02/16/2010 Potassium 4.6 02/16/2010 Relevant Problems NEURO-PSYCH (+) History of CVA (cerebrovascular accident) Other (+) Arthritis (+) Primary osteoarthritis involving multiple joints I - PHYSICAL EVALUATION AIRWAY Patient intubated: No. Tracheostomy tube not present Mallampati: II. TM distance: >3 FB. Neck ROM: full ROM without neurological symptoms. Mouth opening: adequate. Short neck: no. Thick neck: no DENTAL Dental findings: teeth intact. Additional exam findings: no II - ANESTHESIA PLAN ASA Score: 3 Anesthetic Plan: general Airway type: ETT NPO Status: adequate Anesthetic plan additional comments: Pop/Adductor PSR. Beta Juan Monitoring Plan Monitoring plan: Standard ASA. Post Procedure Analgesic Plan Postoperative analgesic plan: parenteral or oral opioids, multimodal analgesia and peripheral nerve block. Informed Consent Anesthetic risks, benefits, alternatives, personnel and consent discussed: yes. Patient / Responsible Libertarian agrees to proceed: yes Patient / Surrogate agrees to blood products: yes DNR status not reviewed with patient and/or family prior to surgery. Significant changes in the patient condition since the History and Physical, not otherwise documented in primary service progress note: no. Potential Anesthesia issues that may suggest increased risk of complications or contraindication to planned procedure: none. Vitals Value Taken Time BP 146/65 10/20/24 0933 Pulse Resp 16 10/20/24932 Temp 36.4 ?C (97.5 ?F) 10/20/24 09 SpO2 98 % 10/20/24932 Facility-Administered Medications as of 10/20/2024 Medication Dose Route Frequency lidocaine (PF) 10 mg/mL (1 %) 1-2 mg injection (XYLOCAINE) 0.1-0.2 mL INTRADERMAL PRN lactated ringers iv infusion 5-30 mL/hr INTRAVENOUS CONTINUOUS NaCl 0.9% iv flush bag 20 mL INTRAVENOUS PRN ceFAZolin 2 g in dextrose (iso-osmotic) 50 mL (ANCEF,KEFZOL) 2 g INTRAVENOUS Pre-Op Once Outpatient Medications as of 10/20/2024 Medication Sig buPROPion XL (WELLBUTRIN XL) 300 mg 24 hr tablet Take 300 mg by mouth. ezetimibe (ZETIA) 10 mg tablet Take 10 mg by mouth once daily. HYDROcodone-acetaminophen (NORCO) 5-325 mg per tablet Take 1 tablet by mouth every 6 hours as needed for pain. apixaban (ELIQUIS) 5 mg tab(s) Take 5 mg by mouth two times a day. ALPRAZolam (XANAX) 0.25 mg tablet Take 0.25 mg by mouth three times daily as needed. folic acid 1 mg tablet ascorbic acid/bioflavonoids (COLLEEN C ORAL) Take by mouth. vit C/E/Zn/coppr/lutein/zeaxan (PRESERVISION AREDS-2 ORAL) Take by mouth. PNV Comb No.59/Iron/FA/DHA (-DHA ORAL) Take by mouth. calcium carbonate/vitamin d3(CALCIUM 600 + D(3) 600 MG (1,500)-200 UNIT TAB) Take one(1) tablet twice daily. CYANOCOBALAMIN (VITAMIN B-12) 1,000 MCG SUBLINGUAL TAB Take one(1) tablet daily. I have interviewed and examined the patient. I have reviewed the medical record and/or the pre-anesthesia evaluation, pertinent labs, and test results. This contains updated information obtained within 48 hours of Surgery/Procedure. SIGNATURE: Everett Samuel MD PATIENT NAME: Deloris Bae DATE: October 20, 2024 TIME: 9:44 AM CSN: [id number] [facility] BRIEF OP NOTon 10-20-2024 BRIEF OP NOT HNO ID: [id number] Author: TREVOR LANCASTER DPM Service: Podiatry Author Type: Physician Type: Brief Op Note Filed: 10/20/2024 13:57 Note Text: BRIEF OPERATIVE / PROCEDURE NOTE LOG ID: [id number] SURGERY/PROCEDURE DATE: 10/20/2024 INCISION/PROCEDURE START TIME: 12:17 PM INCISION CLOSE/PROCEDURE END TIME: 1:52 PM SURGEON(S)/PROCEDURALIST(S ) AND PAN PUSHER(S): Surgeons and Role: * Trevor Lancaster DPM - Primary * Ashely Hicks DPM - Resident - Assisting * Dutsin Melara DPM - Resident - Assisting No Additional Staff SURGERY/PROCEDURE(S): LEFT ANKLE lower extremity Gastrocnemius recession Resection fifth metatarsal head Correction hammer toe deformity second toe with proximal interphalangeal joint arthrodesis Mid tarsal joint talo navicular joint posterior tibial tendon and plantar calcaneal navicular ( spring ) ligament Deep tendon transfer anterior tibial tendon to tarsal cuboid ANESTHESIA: [facility] - Other FINDINGS: consistent with pre operative diagnosis ESTIMATED BLOOD LOSS: minimal - less than 30 mls SPECIMENS: bone and soft tissue fifth metatarsal head COMPLICATIONS: None IMPLANTS: Implant Name Type Inv. Item Serial No. Corporate Administrator Lot No. LRB No. Used Action TENODENSIS GRAFT SIZING KIT [id number] Implant [id number] Kaleidoscope [id number] Left 1 Implanted FHL IMPLANT SYSTEM 6.25MM Implant [id number] Kaleidoscope [id number] Left 1 Implanted CLOSURE TECHNIQUE: Primary PRE-OP/PRE-PROCEDURE DIAGNOSIS: LEFT lower extremity gastrocnemius equinus , Hemiparesis involving LEFT side, muscle imbalance, hammer toe second toe , prominence of bone fifth metatarsal head, equino varus foot and ankle POST-OP/POST-PROCEDURE DIAGNOSIS: Same as Preop SIGNATURE: Trevor Lancaster DPM PATIENT NAME: Deloris Bae DATE: October 20, 2024 TIME: 1:35 PM [facility] OPERATIVE NOon 10-20-2024 OPERATIVE NO HNO ID: [id number] Author: TREVOR LANCASTER DPM Service: Podiatry Author Type: Physician Type: Operative Report Filed: 10/20/2024 18:01 Note Text: OPERATIVE/PROCEDURE REPORT LOG ID: [id number] SURGERY/PROCEDURE DATE: 10/20/2024 INCISION/PROCEDURE START TIME: 12:17 PM INCISION CLOSE/PROCEDURE END TIME: 1:52 PM SURGEON(S)/PROCEDURALIST(S ) AND PAN PUSHER(S): Surgeons and Role: * Trevor Lancaster DPM - Primary * Ashely Hicks DPM - Resident - Assisting * Dustin Melara DPM - Resident - Assisting No Additional Staff SURGERY/PROCEDURE(S): LEFT ANKLE lower extremity Gastrocnemius recession Resection fifth metatarsal head Correction hammer toe deformity second toe with proximal interphalangeal joint arthrodesis Mid tarsal joint talo navicular joint posterior tibial tendon and plantar calcaneal navicular ( spring ) ligament Transfer anterior tibial tendon to tarsal cuboid ANESTHESIA: [facility] - Other SURGERY/PROCEDURE DETAILS: The patient was identified in the preoperative holding area. The correct operative site was marked and the consent was confirmed. A multidisciplinary huddle was completed to ensure preparedness for the upcoming procedure. The patient was brought to the operating room by anesthesia staff. All monitors were applied per anesthesia. All dependent bony prominences were carefully padded. Popliteal and distal femoral / saphenous nerve regional local anesthetic block per anesthesia After induction with general anesthesia the skin was formally prepped with Hibiclens and the patient was draped in the standard sterile fashion. A supplemental local field block was performed to the LEFT ankle utilizing approximately 10ccs of a 1:1 mix of 2% Lidocaine plain and 0.5% Marcaine plain. Prophylaxis was obtained with IV antibiotic administered within 30 minutes prior to the incision. A multidisciplinary timeout was called to confirm the patient's name and date of , procedure to be performed, correct operative site and laterality, all necessary equipment in the room, proper radiographic images, and delivery of perioperative antibiotics/medications. No tourniquet was utilized. All procedures LEFT lower extremity : Farzana type gastrocnemius recession: The hip was flexed and externally rotated with the knee extended to allow for visualization of the posterior lower leg. Attention was directed just distal to the myotendinous junction of the gastrocnemius aponeurosis. A vertical linear 2 cm incision was made with a #15 blade medial from midline. Utilizing a Mosquito hemostat blunt dissection was carried to the level of the paratenon of the gastrocnemius aponeurosis. The paratenon was incised with Metzenbaum scissors and from medial to lateral from the underlying aponeurosis. A blunt retractor was then passed from medial to lateral deep to the paratenon protecting the more superficial neurovascular structures and in particular preventing injury to the sural nerve. The gastrocnemius aponeurosis was then hooked lateral and pulled medial with a Ragnell retractor. The gastrocnemius aponeurosis was fully visualized and placed under tension with knee extension and ankle dorsiflexed. The gastrocnemius aponeurosis was then incised with a #15 blade creating a Farzana type gastrocnemius recession. Underlying soleus muscle was easily visualized. Excellent hemostasis noted. Following the gastrocnemius recession there appeared to be significant reduction in the mechanical stress on the mid foot. Dorsiflexion of the ankle with the knee extended revealed significant improvement of the ankle joint range of motion from negative 15 degrees to approximately 10 degrees positive dorsiflexion. The skin was closed with 4-0 Monocryl. Range of motion of the ankle revealed no evidence of adhesion. The wound was dressed with a small occlusive adhesive dressing. Correction tailors bunion resection prominence of bone distal fifth metatarsal Attention was directed to the lateral aspect of the fifth metatarsophalangeal joint of foot. A lateral incision was made with #15 blade. Dissection was carried deep. Great care was taken to prevent injury to underlying neurovascular structures. Capsular tissue was incised distal fifth metatarsal. Prominent bone, lateral fifth metatarsal head was resected with sagittal bone saw, rongeur and smoothed with Reciprocating rasp plantar. Good clinical and radiographic alignment was noted. No residual plantar prominence of bone noted. Wounds were irrigated. Capsular tissue was repaired with 4-0 Vicryl suture. Skin was closed with 4-0 Monocryl. Correction Hammer second toe LEFT foot Attention was directed to the operative toe. Linear dorsal incision was performed with a #15 scalpel blade at the level of the proximal interphalangeal joint. Dissection was carried deep through skin and subcutaneous tissue. Great care was taken to prevent injur (more content not included)... [facility] Pathology biopsy report Marcos (Tiss)on 10-20-2024 AP DISCLAIMER [facility] Comment on above: Order Comment: Speci men Type: TISSUE SPECIMEN Ordering Facility: [facility] Address: [address] [place] [address] Result Comment: Carmen nguyen Developed Test (LDT) Disclaimer: Performance characteristics of immunohistochemical, immunofluorescent, and chromogenic in-situ hybridization tests have been determined by the performing laboratory within [facility] and Laboratory Medicine Department ([facility], [facility], [facility], [facility], [facility], [facility], or [facility]) in a manner consistent with CLIA requirements. One or more of these tests may not have been cleared or approved by the FDA. [facility] is regulated under CLIA as qualified to perform high-complexity testing. These tests are used for clinical purposes. These should not be regarded as investigational or for research. Positive and negative controls stain appropriately. Performed By: #### 6 6121-5 #### [facility] CLIA [id number] [address] [place] [address] [place] CASE REPORT [facility] Comment on above: Order Comment: Speci men Type: TISSUE SPECIMEN Ordering Facility: [facility] Address: [address] [place] [address] Result Comment: [facility] Pathology Report Case: [id number] Authorizing Provider: Trevor Lancaster DPM Collected: 10/20/2024 12:30 PM Ordering Location: Ambulatory Surgery Received: 10/20/2024 03:19 PM Pathologist: Luz Elena Rojas MD Specimen: Bone and Soft Tissue, left foot Performed By: #### 6 6121-5 #### [facility] CLIA [id number] [address] [place] [address] STATES OF [facility] CLINICAL HISTORY Normal [facility] Comment on above: Order Comment: Speci humberto Type: TISSUE SPECIMEN Ordering Facility: [facility] Address: [address] [place] [address] Result Comment: Pre- op diagnosis: Hemiparesis of left nondominant side as late effect of cerebrovascular disease, unspecified cerebrovascular disease type (HCC) [I69.954] Foot contracture, left [M24.575] Gastrocnemius equinus of left lower extremity [M62.462] Metata rsus adductus of left foot [Q66.222] Difficulty walking [R26.2] Tailor's bunion of left foot [M21.622] Performed By: #### 6 6121-5 #### [facility] CLIA [id number] [address] [place] [address] FINAL DIAGNOSIS [facility] Comment on above: Order Comment: Speci men Type: TISSUE SPECIMEN Ordering Facility: [facility] Address: [address] [place] [address] Result Comment: A. B one, left fifth metatarsal head, excision: - Osteocartilaginous tissue with degenerative changes. at 1206 EDT Performed By: #### 6 6121-5 #### [facility] CLIA [id number] [address] [place] [address] OF [place] FINAL PERFORMING LAB Normal [facility] Comment on above: Order Comment: Speci men Type: TISSUE SPECIMEN Ordering Facility: [facility] Address: [address] [place] [address] Result Comment: Diag nostic interpretation performed at: [facility], [address] [place] [address] CLIA# [id number] National Sales Associate: Pepito Thayer MD Performed By: #### 6 6121-5 #### [facility] CLIA [id number] [address] [place] [address] STATES OF [place] GROSS DESCRIPTION [facility] Comment on above: Order Comment: Speci men Type: TISSUE SPECIMEN Ordering Facility: [facility] Address: [address] [place] [address] Result Comment: A. B one and Soft Tissue Received in formalin labeled left foot is an irregularly-shaped, firm bone excision measuring 1.5 x 0.9 x 0.5 cm. The external surface is markedly roughened. The cut surfaces are hobbs and trabeculated. Entirely submitted in cassette A1 after light decalcification in formic acid. KIMANI October 21, 2024 9:56 AM Gross examination performed at [facility], [address] [place] [address] Performed By: #### 6 6121-5 #### [facility] CLIA [id number] [address] [place] [address] [place] HISTORY PHYSICALon HISTORY PHYSICAL HNO ID: [id number] Author: MONICA LUU APRN.DISPLAYER MERCHANDISE Service: ? Author Type: Nurse Practitioner Type: H&P Filed: 10/06/2024 08:47 Note Text: [facility] HISTORY AND PHYSICAL EXAMINATION SERVICE DATE: 10/06/2024 SERVICE TIME: 8:11 AM PRIMARY CARE PHYSICIAN: Tamia France MD REASON FOR VISIT: Deloris Bae is a 69 year old female who is scheduled for Left - TRANSFER TENDON EXTREMITY LOWER Left - RECESSION GASTROCNEMIUS Left - OSTECTOMY COMPLETE EXCISION METATARSAL HEAD FIFTH Left - CAPSULOTOMY MIDFOOT WITH TENDON LENGTHENING at the request of Dr. Trevor Lancaster for consultation. My final recommendation will be communicated back to the requesting physician by way of shared medical record or letter. Assessment Patient has the following medical conditions which may affect kelsey-operative course: Former smoker Assessment: 1.5 packs/day, for 28 years. Quit 06/16/2006. History of CVA (cerebrovascular accident) Assessment: (04/2024) for ischemic stroke secondary to cryptogenic. History of gastric bypass Assessment: History of Gastric Bypass in 2007 Body mass index is 24.22 kg/m?. Depression Assessment: stable on medication Denies any suicidal ideation I - PHYSICAL EVALUATION AIRWAY Patient intubated: No. Tracheostomy tube not present Mallampati: I. TM distance: >3 FB. Neck ROM: full ROM without neurological symptoms. Mouth opening: adequate. Short neck: no. Thick neck: no Tinoco present: no Lip Bite Test: II Microretrognathia/Micronag thia/Recessed Chin: No DENTAL Dental findings: teeth intact. Additional comments: Permanent bridge upper . II - ANESTHESIA PLAN Anesthetic plan additional comments: *PACC/TCI - anesthesia choice. Beta Juan Monitoring Plan Post Procedure Analgesic Plan ANESTHESIA FINDINGS: Intubation History: No history of difficult intubation. No abnormal airway history Significant Anesthesia Considerations: none Airway History: No history of difficult airway No abnormal airway history Montaño Activity Status Index: METS: Walk indoors, such as around the house (1.75 METs) Do light work around the house, such as dusting or washing dishes (2.70 METs) Take care of self; that is eating, dressing, bathing, using the toilet (2.75 METs) Walk a block or two on level ground (2.75 METs) Do moderate work around the house, such as vacuuming, sweeping floors, or carrying in groceries (3.50 METs) Climb a flight of stairs or walk up a hill (5.50 METs) DASI Score: 18.95 Patient denies any chest pain or undue shortness of breath with the above physical activity. Clinical Frailty Scale: 3. Well, with treated comorbid disease STOP-Bang Score: Patient over 50 years old Denies snoring loudly Denies feeling tired, fatigued, or sleepy during the daytime Has not been observed to stop breathing or choking/gasping during sleep Denies having high blood pressure BMI less than or equal to 35 kg/m2 Does not have a large neck Non-male patient STOP-Bang Score: 1 [id number] Score: Age: 65-74 Sex: female CHF history: No Hypertension history: No Stroke/TIA/thromboembolism history: Yes Vascular disease history: No Diabetes history: No [id number] Score: 4 ARISCAT Score: Age: 51-80 Preoperative SpO2: >=96% Respiratory infection in the last month: No Preoperative anemia: Yes Surgical incision: peripheral Duration of surgery: 2-3 hrs Emergency procedure: No ARISCAT Score: 30 Prepared for surgery: This patient is optimally prepared for surgery. Patient was told by Dr. Beaver to stop Eliquis two days Prior to surgery CONSULTS: Patient does not require consults for optimization at this time. The Following Tests/Procedures Have Been Initiated: Labs not indicated per PACC protocol, EKG not indicated per PACC protocol Planned Anesthetic: Per anesthesia choice Subjective CHIEF COMPLAINT: Left foot pain HPI: 69 year old female with left foot pain that has been ongoing for months. Patient is s/p CVA with partial hemiparesis and states she has left foot contracture with difficulty walking and difficulty wearing AFO . Patient states pain is 7/10 REVIEW OF SYSTEMS: PAIN ASSESSMENT: Pain Pain Level: 0 Pain Location: Foot-Left General: No weight loss, malaise or fevers. Neuro: Positive for CVA with left hemiparesis 04/2024 Respiratory: Positive for Tobacco Use 1.5 packs/day, for 28 years. Quit 06/16/2006., Negative for No history of current cough or dyspnea, or pneumonia in the past 6 weeks. No history of respiratory/pulmonary symptoms or problems Cardiovascular: No history of HTN requiring medication, no history of angina, CHF, NC, cardiac surgery or stents. Denies rest pain, gangrene or revascularization/amputati on for PVD. No history of cardiovascular symptoms or problems. GI: No history of GI symptoms or problems. No history of es (more content not included)... [facility] Basic metabolic 1998 panelon 10-05-2024 Calcium [Mass/Vol] 9.6 mg/dL 8.7 - 10. 3 mg/dL [facility] Chloride [Moles/Vol] 104 mmol/L 96 - 10 6 mmol/L [facility] CO2 [Moles/Vol] 24 mmol/L 20 - 29 mmol/L [facility] Creatinine [Mass/Vol] 0.8 mg/dL 0.57 - 1.00 mg/dL [facility] GFR/1.73 sq M.predicted among non-blacks MDRD (S/P/Bld) [Vol rate/Area] 80 mL/min/{1.73_m2} 59 - PINF mL/min/1.7 3 [facility] Glucose [Mass/Vol] 89 mg/dL 70 - 99 mg/dL [facility] Potassium [Moles/Vol] 4.5 mmol/L 3.5 - 5.2 mmol/L [facility] Sodium [Moles/Vol] 141 mmol/L 134 - 144 mmol/L [facility] Urea nitrogen [Mass/Vol] 18 mg/dL 8 - 27 mg/dL [facility] Urea nitrogen/Creatinine [Mass ratio] 23 mg/mg 12 - 28 [facility] No Panel Informationon 10-05 Performed at: 01 - L [facility] [address], [address], [place], [place] [id number] Leadership Coach: Modesta Gerardo MD, Phone: [phone] [facility] Specimen Status Reporton Clindamycin Disk diffusion (KB) [[facility]] Comment [facility] Comment on above: Tavon Carter BMP8 De fault Tavon BONE8 Default A hand-written panel/profile was received from your office. In accordance with the [facility] Ambiguous Test Code Policy dated December 2002, we have completed your order by using the closest currently or formerly recognized AMA panel. We have assigned Basic Metabolic Panel (8), Test Code #001748 to this request. If this is not the testing you wished to receive on this specimen, please contact the [facility] Client Inquiry/Technical Services Department to clarify the test order. We appreciate your business. No Panel Informationon 09-28 Merary Espinal MA 09/14 2:03 PM S Inj/Asp: Aretha gerard MCP on 09/28/2024 10:49 AM Indications: diagnostic evaluation Details: 25 G needle, ultrasound-guided Medications: 3 mg betamethasone acetate-betamethasone sodium phosphate 6 (3-3) MG/ML Outcome: tolerated well, no immediate complications Consent was given by the patient. [facility] 09-24-2024 [facility] Office Visit (LOORRM ) -- DELORIS BAE ([id number]) 1955 F Date Time Provider Department 09/24/24 10:30 AM TREVOR [facility]CA[facility] During your visit today, we recorded the following information about you: Trevor Lancaster DPM 09/24/2024 2:39 PM Signed Patient Visit for Deloris Bae 1955 69 year old female SUBJECTIVE: Chief Complaint: Patient presents with: Left Foot - New Pain Scales: Verbal (Numeric Rating or Visual Analog Scale) Pain Level: (6 to 8) Pain Location: Foot-Left Description: Sharp Duration Amount of Time: (UNKNOWN, QUITE AWHILE) Duration Units: Unknown Frequency: Intermittent (MOST OF THE TIME) Intervention/Comfort measure: Splinting Additional HPI: LEFT FOOT contracture with difficulty walking and difficulty wearing AFO (Ankle Foot Orthosis) status post CVA (Cerebral Vascular Accident - Stroke) with partial Hemiparesis PCP: Tamia France MD PAST MEDICAL HISTORY Diagnosis Date Arthritis Depression Diabetes (HCC) Type II Endometriosis Enthesopathy of hip region 12/30/2006 Hyperlipidemia Severe vaginal dysplasia 01/23/2010 Tear of lateral cartilage or meniscus of knee, current 03/17/2007 Vaginal dysplasia Current Outpatient Medications Medication Sig apixaban (ELIQUIS) 5 mg tab(s) Take 5 mg by mouth two times a day. gabapentin (NEURONTIN) 300 mg capsule Take by mouth. ALPRAZolam (XANAX) 0.25 mg tablet Take 0.25 mg by mouth three times daily as needed. folic acid 1 mg tablet methotrexate 2.5 mg tablet predniSONE (DELTASONE) 1 mg tablet traMADol (ULTRAM) 50 mg tablet Take by mouth. buPROPion XL (WELLBUTRIN XL) 300 mg 24 hr tablet Take 300 mg by mouth once daily. ascorbic acid/bioflavonoids (COLLEEN C ORAL) Take by mouth. vit C/E/Zn/coppr/lutein/zeaxan (PRESERVISION AREDS-2 ORAL) Take by mouth. PNV Comb No.59/Iron/FA/DHA (-DHA ORAL) Take by mouth. calcium carbonate/vitamin d3(CALCIUM 600 + D(3) 600 MG (1,500)-200 UNIT TAB) Take one(1) tablet twice daily. CYANOCOBALAMIN (VITAMIN B-12) 1,000 MCG SUBLINGUAL TAB Take one(1) tablet daily. No current facility-administered medications for this visit. ALLERGIES No Known Allergies PAST SURGICAL HISTORY Procedure Laterality Date APPENDECTOMY 1971 BACK SURGERY HX 2000 CHOLECYSTECTOMY 1981 DANDC, DIAG AND/OR THERAPEUTIC 1987 x2 DESTR LES VAGINA SIMPLE ANY METH 02/23/10 Performed by WENDY SHARMA at [facility] GASTRIC BYPASS 2007 KNEE ARTHROSCOPY 2006 LASER VAGINA LESION EXTEN LIGATE FALLOPIAN TUBE PAST SURGICAL HISTORY OF 2007 Finger surgery REDUCTION OF LARGE BREAST 1979 REMOVE VAGINA WALL, PARTIAL 02/23/10 Performed by WENDY SHARMA at [facility] TONSILLECTOMY HX 1971 TOTAL ABDOM HYSTERECTOMY 1988 and RSO FAMILY HISTORY Problem Relation Age of Onset Cancer Father Lung cancer Cancer Brother Squamous cell skin cancer Social History Tobacco Use Smoking status: Former Current packs/day: 0.00 Average packs/day: 1.5 packs/day for 28.0 years (42.0 ttl pk-yrs) Types: Cigarettes Start date: 06/16/1978 Quit date: 06/16/2006 Years since quittin.2 Smokeless tobacco: Never Substance Use Topics Alcohol use: Yes Tobacco Use: 1.5 packs/day, for 28 years. Quit 06/16/2006. Types: Cigarettes REVIEW OF SYSTEMS: The remainder of the ROS was reviewed with the patient and is negative except as noted. OBJECTIVE: General: Pleasant in no acute distress Lower extremity exam: Vascular exam: Normal vascular exam, palpable pluses with brisk capillary fill Neurological exam: gross epicritic sensation intact LEFT lower extremity loss of motor function peroneals Dermatological exam: Normal exam without rashes or lesions of skin. No evidence of evidence of petechiae, purpura, telangiectasia Musculoskeletal exam: Prominence of bone distal fifth metatarsal LEFT FOOT Diminished plantar adipose thin fat pad Medial midfoot contracture , posterior tibial tendon 5/5 Loss of motor function peroneals Anterior tibial tendon 4+/5 Gastrocnemius equinus LABS: Most recent labs reviewed LABORATORY STUDIES: Recent Labs 02/26/22 1027 WSR 5 CRP <0.3 CCPABG <15 RF <10 X-ray evidence of previous fifth metatarsal head resection Metatarsus adductus ASSESSMENT: I69.954 Hemiparesis of left nondominant side as late effect of cerebrovascular disease, unspecified cerebrovascular disease type (HCC) (primary encounter diagnosis) M24.575 Foot contracture, left M62.462 Gastrocnemius equinus of left lower extremity Q66.222 Metatarsus adductus of left foot R26.2 Difficulty walking M21.622 Tailor's bunion of left foot PLAN: Explained to the patient etiology and treatment plan. Treatment options discussed at length Risks Benefits Alternatives relative to procedure discussed Surgical Plan: LEFT FOOT Anterior tibial tendon transfer to tarsa (more content not included)... Normal [facility] Zhang 09-24-2024 [facility] Telephone ([facility] -- DELORIS BAE ([id number]) 1955 F Date Time Provider Department 09/24/24 TREVOR LANCASTER During your visit today, we recorded the following information about you: Henna Coleman 09/24/2024 5:04 PM Signed ----- Message from Trevor Lancaster DPM sent at 09/24/2024 2:39 PM EDT ----- ASSESSMENT: I69.954 Hemiparesis of left nondominant side as late effect of cerebrovascular disease, unspecified cerebrovascular disease type (HCC) (primary encounter diagnosis) M24.575 Foot contracture, left M62.462 Gastrocnemius equinus of left lower extremity Q66.222 Metatarsus adductus of left foot R26.2 Difficulty walking M21.622 Tailor's bunion of left foot PLAN: Explained to the patient etiology and treatment plan. Treatment options discussed at length Risks Benefits Alternatives relative to procedure discussed Surgical Plan: LEFT FOOT Anterior tibial tendon transfer to tarsal cuboid 40312 Mid tarsal joint tenotomy and capsulotomy posterior tibial tendon 27379 Gastrocnemius recession 10294 Partial excision bone fifth metatarsal head LEFT 63579 Popliteal and distal femoral / saphenous nerve regional local anesthetic block General anesthesia Supine 2.5 hour Special equipment needed Arthrex endobutton or equivalent for anterior tibial tendon transfer to tarsal cuboid Tendon passer Henna Coleman 09/27/2024 11:47 AM Signed Spoke to patient and she is scheduled for surgery of left foot with Dr. Lancaster for his soonest opening of 10/20/24. She would like sooner, so is on our surgical wait list in case a cancellation opens a sooner opportunity. Henna Coleman 09/27/2024 12:04 PM Signed Allergies As of Date: 09/24/2024 (No Known Allergies) Date Reviewed: 02/26/2022 Reviewed by: Rod Figueroa MA - Fully Assessed Reason for Visit: Surgical Followup [104] Prescriptions as of 09/27/2024 - apixaban (ELIQUIS) 5 mg tab(s) Take 5 mg by mouth two times a day. - gabapentin (NEURONTIN) 300 mg capsule Take by mouth. - ALPRAZolam (XANAX) 0.25 mg tablet Take 0.25 mg by mouth three times daily as needed. - folic acid 1 mg tablet - methotrexate 2.5 mg tablet - predniSONE (DELTASONE) 1 mg tablet - traMADol (ULTRAM) 50 mg tablet Take by mouth. - buPROPion XL (WELLBUTRIN XL) 300 mg 24 hr tablet Take 300 mg by mouth once daily. - ascorbic acid/bioflavonoids (COLLEEN C ORAL) Take by mouth. - vit C/E/Zn/coppr/lutein/zeaxan (PRESERVISION AREDS-2 ORAL) Take by mouth. - PNV Comb No.59/Iron/FA/DHA (-DHA ORAL) Take by mouth. - calcium carbonate/vitamin d3(CALCIUM 600 + D(3) 600 MG (1,500)-200 UNIT TAB) Take one(1) tablet twice daily. - CYANOCOBALAMIN (VITAMIN B-12) 1,000 MCG SUBLINGUAL TAB Take one(1) tablet daily. Problem List As Of Date 09/24/2024 Noted Resolved ENTHESOPATHY OF HIP [M76.899] 12/30/2006 OA (OSTEOARTHRITIS) LOCALIZED, PRIMARY( Lower L*12/30/2006 TEAR LAT MENISC KNEE-CURRENT [S83.289A] 03/17/2007 Severe Vaginal Dysplasia [D07.2] 01/23/2010 Endometriosis [N80.9] Vaginal dysplasia [N89.3] 07/12/2010 Arthritis [M19.90] Hyperlipidemia [E78.5] Depression [F32.A] Diabetes [E11.9] PMR (polymyalgia rheumatica) ([facility]) [M35.3] 02/27/2022 Chondrocalcinosis of left knee [M11.262] 02/27/2022 Primary osteoarthritis involving multiple joint*02/27/2022 DDD (degenerative disc disease), lumbosacral [M*02/27/2022 Spinal stenosis of lumbosacral region [M48.07] 02/27/2022 Encounter Status:Closed by HENNA COLEMAN on 09/24/24 Normal [facility] No Panel InformationOrdered By: Radiologist Radiology on 09-24-2024 [facility] [employer] Work Phone: XR FOOT 3V AP/LAT/OBL LTon 0 09-24-2024 * * *Final Report* * * DATE OF EXAM: Sep 24 2024 10:04AM LZX 5336 - XR FOOT 3V AP/LAT/OBL LT / PROCEDURE REASON: Pain * * * * Physician Interpretation * * * * HISTORY: Pain . TECHNIQUE: XR FOOT 3V AP/LAT/OBL LT Laterality: LEFT Number of different views (projections): 3 COMPARISON: None available. RESULT: Changes of prior fifth metatarsal head resection. No acute fracture or dislocation. Joint spaces are preserved. Posterior calcaneal enthesophyte and foci of mineralization in the distal Achilles tendon. No soft tissue swelling. No other significant abnormality. IMPRESSION: No acute findings. Fiber Optics Supervisor: RIMMA Transcribe Date/Time: Sep 24 2024 11:11A Dictated by : CORINNE MAYNARD MD This examination was interpreted and the report reviewed and electronically signed by: CORINNE MAYNARD MD on Sep 24 2024 11:12AM EST [id number] [facility], Radiologi MD vivian - 09/24/2024 * * *Final Report* * * DATE OF EXAM: Sep 24 2024 10:04AM LZX 5336 - XR FOOT 3V AP/LAT/OBL LT / PROCEDURE REASON: Pain * * * * Physician Interpretation * * * * HISTORY: Pain . TECHNIQUE: XR FOOT 3V AP/LAT/OBL LT Laterality: LEFT Number of different views (projections): 3 COMPARISON: None available. RESULT: Changes of prior fifth metatarsal head resection. No acute fracture or dislocation. Joint spaces are preserved. Posterior calcaneal enthesophyte and foci of mineralization in the distal Achilles tendon. No soft tissue swelling. No other significant abnormality. IMPRESSION: No acute findings. Fiber Optics Supervisor: [employer] Transcribe Date/Time: Sep 24 2024 11:11A Dictated by : CORINNE MAYNARD MD This examination was interpreted and the report reviewed and electronically signed by: CORINNE MAYNARD MD on Sep 24 2024 11:12AM EST [id number]^ACN [facility] XR FOOT 3V AP/LAT/OBL LT * * *Final Report* * * DATE OF EXAM: Sep 24 2024 10:04AM LZX 5336 - XR FOOT 3V AP/LAT/OBL LT / PROCEDURE REASON: Pain * * * * Physician Interpretation * * * * HISTORY: Pain . TECHNIQUE: XR FOOT 3V AP/LAT/OBL LT Laterality: LEFT Number of different views (projections): 3 COMPARISON: None available. RESULT: Changes of prior fifth metatarsal head resection. No acute fracture or dislocation. Joint spaces are preserved. Posterior calcaneal enthesophyte and foci of mineralization in the distal Achilles tendon. No soft tissue swelling. No other significant abnormality. IMPRESSION: No acute findings. Fiber Optics Supervisor: RIMMA Transcribe Date/Time: Sep 24 2024 11:11A Dictated by : CORINNE MAYNARD MD This examination was interpreted and the report reviewed and electronically signed by: CORINNE MAYNARD MD on Sep 24 2024 11:12AM EST [id number] Normal [facility] Radiology Study observation (narrative) [facility] XR Foot - left AP and Latera l and obliqueon 09-24-2024 IMPRESSION: No acute findings. Fiber Optics Supervisor: [facility] Transcribe Date/Time: Sep 24 2024 11:11A Dictated by : CORINNE MAYNARD MD This examination was interpreted and the report reviewed and electronically signed by: CORINNE MAYNARD MD on Sep 24 2024 11:12AM EST DIVISION OF RADIOLOGY * * *Final Report* * * DATE OF EXAM: Sep 24 2024 10:04AM LZX 5336 - XR FOOT 3V AP/LAT/OBL LT / PROCEDURE REASON: Pain * * * * Physician Interpretation * * * * HISTORY: Pain . TECHNIQUE: XR FOOT 3V AP/LAT/OBL LT Laterality: LEFT Number of different views (projections): 3 COMPARISON: None available. RESULT: Changes of prior fifth metatarsal head resection. No acute fracture or dislocation. Joint spaces are preserved. Posterior calcaneal enthesophyte and foci of mineralization in the distal Achilles tendon. No soft tissue swelling. No other significant abnormality. DIVISION OF RADIOLOGY [facility]24 * * *Final Report* * * DATE OF EXAM: Sep 24 2024 10:04AM LZX 5336 - XR FOOT 3V AP/LAT/OBL LT / PROCEDURE REASON: Pain * * * * Physician Interpretation * * * * HISTORY: Pain . TECHNIQUE: XR FOOT 3V AP/LAT/OBL LT Laterality: LEFT Number of different views (projections): 3 COMPARISON: None available. RESULT: Changes of prior fifth metatarsal head resection. No acute fracture or dislocation. Joint spaces are preserved. Posterior calcaneal enthesophyte and foci of mineralization in the distal Achilles tendon. No soft tissue swelling. No other significant abnormality. IMPRESSION IMPRESSION: No acute findings. Fiber Optics Supervisor: [facility] Transcribe Date/Time: Sep 24 2024 11:11A Dictated by : CORINNE MAYNARD MD This examination was interpreted and the report reviewed and electronically signed by: CORINNE MAYNARD MD on Sep 24 2024 11:12AM EST [facility] Radiology Study observation (narrative) [facility] MR SHOULDER RIGHT WO IV CONT RASTon 09-21-2024 MR SHOULDER RIGHT WO IV CONTRAST EXAMINATION/TECHNIQUE: MR SHOULDER RIGHT WO IV CONTRAST HISTORY: Right shoulder pain with decreased range of motion. Multiple falls. Denies prior right shoulder surgery. COMPARISON: Radiograph 08/11/2024. RESULT: Some limitations from motion. Rotator Cuff Tendons: There appears to be full-thickness tearing near the junction of distal supraspinatus and subscapularis near insertions, probably involving the anterior fibers of supraspinatus and some superior fibers of subscapularis, with other intact appearing other fibers of supraspinatus and subscapularis, with underlying tendinosis. Mild tendinosis involving infraspinatus, without tear. Teres minor appears intact. Long Head Biceps Tendon: Appears intact with mild intra-articular tendinosis. Muscle: Muscle bulk and signal intensity are within normal limits. Labrum: Areas of fraying and/or tearing. Bones and Marrow: No evidence of fracture or bone marrow replacing process. Glenohumeral Joint: No measurable full-thickness chondral defect. No joint effusion. Some thickening of the joint capsule with increased signal, associated with adhesive capsulitis. Acromioclavicular Joint: Mild to moderate degenerative changes. Undersurface osteophytes. Other: Mild subacromial-subdeltoid bursal thickening/fluid. IMPRESSION: Rotator cuff tendinosis with findings suspicious for full-thickness tearing near the junction of distal supraspinatus and subscapularis. ELECTRONICALLY SIGNED BY: Carlos Floyd MD Normal Not Available Comment on above: Order Comment: B/L t otal hips Back surgery- 2 cages [facility] Heart Perfusion W stress and W radionuclide Jamison 08-12-2024 Normal Lexiscan Myov iew cardiac perfusion stress test. No evidence of ischemia or myocardial infarction by perfusion imaging. Normal left ventricular systolic function, ejection fraction 69%. No previous study available for comparison. Signed by: Lyric Villatoro 08/12/2024 5:27 PM Dictation workstation: [id number] MMODAL Interpreted By: Lyric Villatoro, and Hanna Costa STUDY: MYOCARDIAL PERFUSION STRESS TEST WITH LEXISCAN Performing facility: [facility], [address] [place] [address], [address], [address] Provider: Kim[facility] Beaver MD, [facility] PCP: Dr. Josh France Supervising provider: Lyric Villatoro MD INDICATION: ,R94.31 Abnormal electrocardiogram (ECG) (EKG),I63.9 Cerebral infarction, unspecified,Z86.73 Personal history of transient ischemic attack (TIA), and cerebral infarction without residual deficits,E78.2 Mixed hyperlipidemia,Z68.24 Body mass index (BMI) 24.0-24.9, adult HISTORY: Gender: F; Age: 69 y/o ; Height: HT 162.6 cm cm; Weight: WT 63.594 kg kg. Abnormal EKG; CVA TIA MHLD Quit smoking 18 years ago. COMPARISON: No comparison. ACCESSION NUMBER(S): [id number] ORDERING CLINICIAN: KIMMIE BEAVER TECHNIQUE: ONE DAY protocol. Stress injection: Date:08-12-24, 31.6 mCi of Myoview IV 20 seconds after rapid injection of Lexiscan. Rest injection: Date: 08-12-24, 11.4 mCi of Myoview IV at rest. The patient had a rapid injection of 0.4 mg of Lexiscan IV over 10 seconds. Imaging was performed by gated tomographic technique. Reason for Lexiscan: uses walker/cane STRESS TEST DATA: Resting heart rate was 73 BPM. Resting blood pressure was 128/78 mmHg. Peak blood pressure was 126/76 mmHg. Peak heart rate was 109 BPM. TEST TERMINATED DUE TO: Protocol completed FINDINGS: STRESS TEST RESULTS: Resting electrocardiogram revealed normal sinus rhythm. There were no significant ischemic ECG changes or dysrhythmias. The patient did not have chest pains/symptoms during procedure. There was a normal recovery phase. IMAGING RESULTS: Image quality was good. Rest and stress tomographic images were reviewed and revealed normal perfusion without evidence of ischemia, myocardial infarction, or left ventricular dilatation with stress. Overall left ventricular systolic function appeared to be normal without regional wall motion abnormalities. Ejection fraction was 69%. TID is 0.9 and is normal. There were no evidence of attenuation artifact. MMODAL Lyric Villatoro MD - 08/12/2024 Interpreted By: Lyric Villatoro and Giannuzzi Michael STUDY: MYOCARDIAL PERFUSION STRESS TEST WITH LEXISCAN Performing facility: [facility], [address] [place] [address], [address], [address] Provider: Kimmie Beaver MD, FACC PCP: Dr. Josh France Supervising provider: Lyric Villatoro MD INDICATION: ,R94.31 Abnormal electrocardiogram (ECG) (EKG),I63.9 Cerebral infarction, unspecified,Z86.73 Personal history of transient ischemic attack (TIA), and cerebral infarction without residual deficits,E78.2 Mixed hyperlipidemia,Z68.24 Body mass index (BMI) 24.0-24.9, adult HISTORY: Gender: F; Age: 69 y/o ; Height: HT 162.6 cm cm; Weight: WT 63.594 kg kg. Abnormal EKG; CVA TIA MHLD Quit smoking 18 years ago. COMPARISON: No comparison. ACCESSION NUMBER(S): [id number] ORDERING CLINICIAN: KIMMIE BEAVER TECHNIQUE: ONE DAY protocol. Stress injection: Date:08-12-24, 31.6 mCi of Myoview IV 20 seconds after rapid injection of Lexiscan. Rest injection: Date: 08-12-24, 11.4 mCi of Myoview IV at rest. The patient had a rapid injection of 0.4 mg of Lexiscan IV over 10 seconds. Imaging was performed by gated tomographic technique. Reason for Lexiscan: uses walker/cane STRESS TEST DATA: Resting heart rate was 73 BPM. Resting blood pressure was 128/78 mmHg. Peak blood pressure was 126/76 mmHg. Peak heart rate was 109 BPM. TEST TERMINATED DUE TO: Protocol completed FINDINGS: STRESS TEST RESULTS: Resting electrocardiogram revealed normal sinus rhythm. There were no significant ischemic ECG changes or dysrhythmias. The patient did not have chest pains/symptoms during procedure. There was a normal recovery phase. IMAGING RESULTS: Image quality was good. Rest and stress tomographic images were reviewed and revealed normal perfusion without evidence of ischemia, myocardial infarction, or left ventricular dilatation with stress. Overall left ventricular systolic function appeared to be normal without regional wall motion abnormalities. Ejection fraction was 69%. TID is 0.9 and is normal. There were no evidence of attenuation artifact. IMPRESSION: Normal Lexiscan Myoview cardiac perfusion stress test. No evidence of ischemia or myocardial infarction by perfusion imaging. Normal left ventricular systolic function, ejection fraction 69%. No previous study available for comparison. Signed by: Lyric Villatoro 08/12/2024 5:27 PM Dictation workstation: [id number] [facility] Work Phone: Radiology Study observation (narrative) [facility] Work Phone: NM Heart Perfusion W stress and W radionuclide IVOrdered By: Lyric Villatoro on 08-12-2024 [facility] Work Phone: NUCLEAR STRESS TESTon 2024 NUCLEAR STRESS TEST Interpreted By: Lyric Villatoro and Giannuzzi Michael STUDY: MYOCARDIAL PERFUSION STRESS TEST WITH LEXISCAN Performing facility: [facility], [address] [place] [address], [address], [place] [id number] [facility] Provider: Kimmie Beaver MD, [facility] PCP: Dr. Josh France Supervising provider: Lyric Villatoro MD INDICATION: ,R94.31 Abnormal electrocardiogram (ECG) (EKG),I63.9 Cerebral infarction, unspecified,Z86.73 Personal history of transient ischemic attack (TIA), and cerebral infarction without residual deficits,E78.2 Mixed hyperlipidemia,Z68.24 Body mass index (BMI) 24.0-24.9, adult HISTORY: Gender: F; Age: 69 y/o ; Height: HT 162.6 cm cm; Weight: WT 63.594 kg kg. Abnormal EKG; CVA TIA MHLD Quit smoking 18 years ago. COMPARISON: No comparison. ACCESSION NUMBER(S): [id number] ORDERING CLINICIAN: KIMMIE BEAVER TECHNIQUE: ONE DAY protocol. Stress injection: Date:08-12-24, 31.6 mCi of Myoview IV 20 seconds after rapid injection of Lexiscan. Rest injection: Date: 08-12-24, 11.4 mCi of Myoview IV at rest. The patient had a rapid injection of 0.4 mg of Lexiscan IV over 10 seconds. Imaging was performed by gated tomographic technique. Reason for Lexiscan: uses walker/cane STRESS TEST DATA: Resting heart rate was 73 BPM. Resting blood pressure was 128/78 mmHg. Peak blood pressure was 126/76 mmHg. Peak heart rate was 109 BPM. TEST TERMINATED DUE TO: Protocol completed FINDINGS: STRESS TEST RESULTS: Resting electrocardiogram revealed normal sinus rhythm. There were no significant ischemic ECG changes or dysrhythmias. The patient did not have chest pains/symptoms during procedure. There was a normal recovery phase. IMAGING RESULTS: Image quality was good. Rest and stress tomographic images were reviewed and revealed normal perfusion without evidence of ischemia, myocardial infarction, or left ventricular dilatation with stress. Overall left ventricular systolic function appeared to be normal without regional wall motion abnormalities. Ejection fraction was 69%. TID is 0.9 and is normal. There were no evidence of attenuation artifact. IMPRESSION: Normal Lexiscan Myoview cardiac perfusion stress test. No evidence of ischemia or myocardial infarction by perfusion imaging. Normal left ventricular systolic function, ejection fraction 69%. No previous study available for comparison. Signed by: Lyric Villatoro 08/12/2024 5:27 PM Dictation workstation: [id number] [facility] NUCLEAR STRESS TEST EXERCISE (CARD)on 08-12-2024 Source Facility: [facility] Interpreted By: Lyric Villatoro and Giannuzzi Michael STUDY: MYOCARDIAL PERFUSION STRESS TEST WITH LEXISCAN Performing facility: [facility], [address] [place] [address], [address], [place] [address] [facility] Provider: Kimmie Beaver MD, FACC PCP: Dr. Josh France Supervising provider: Lyric Villatoro MD INDICATION: ,R94.31 Abnormal electrocardiogram (ECG) (EKG),I63.9 Cerebral infarction, unspecified,Z86.73 Personal history of transient ischemic attack (TIA), and cerebral infarction without residual deficits,E78.2 Mixed hyperlipidemia,Z68.24 Body mass index (BMI) 24.0-24.9, adult HISTORY: Gender: F; Age: 69 y/o ; Height: HT 162.6 cm cm; Weight: WT 63.594 kg kg. Abnormal EKG; CVA TIA MHLD Quit smoking 18 years ago. COMPARISON: No comparison. ACCESSION NUMBER(S): [id number] ORDERING CLINICIAN: KIMMIE BEAVER TECHNIQUE: ONE DAY protocol. Stress injection: Date:08-12-24, 31.6 mCi of Myoview IV 20 seconds after rapid injection of Lexiscan. Rest injection: Date: 08-12-24, 11.4 mCi of Myoview IV at rest. The patient had a rapid injection of 0.4 mg of Lexiscan IV over 10 seconds. Imaging was performed by gated tomographic technique. Reason for Lexiscan: uses walker/cane STRESS TEST DATA: Resting heart rate was 73 BPM. Resting blood pressure was 128/78 mmHg. Peak blood pressure was 126/76 mmHg. Peak heart rate was 109 BPM. TEST TERMINATED DUE TO: Protocol completed FINDINGS: STRESS TEST RESULTS: Resting electrocardiogram revealed normal sinus rhythm. There were no significant ischemic ECG changes or dysrhythmias. The patient did not have chest pains/symptoms during procedure. There was a normal recovery phase. IMAGING RESULTS: Image quality was good. Rest and stress tomographic images were reviewed and revealed normal perfusion without evidence of ischemia, myocardial infarction, or left ventricular dilatation with stress. Overall left ventricular systolic function appeared to be normal without regional wall motion abnormalities. Ejection fraction was 69%. TID is 0.9 and is normal. There were no evidence of attenuation artifact. IMPRESSION: Normal Lexiscan Myoview cardiac perfusion stress test. No evidence of ischemia or myocardial infarction by perfusion imaging. Normal left ventricular systolic function, ejection fraction 69%. No previous study available for comparison. Signed by: Lyric Villatoro 08/12/2024 5:27 PM Dictation workstation: [id number] Radiology, Radiologi MD vivian - 08/12/2024 Source Facility: [facility] Interpreted By: Lyric Villatoro and Giannuzzi Michael STUDY: MYOCARDIAL PERFUSION STRESS TEST WITH LEXISCAN Performing facility: [facility], [address] , [address], [place] [address] [facility] Provider: Kimmie Beaver MD, FACC PCP: Dr. Josh France Supervising provider: Lyric Villatoro MD INDICATION: ,R94.31 Abnormal electrocardiogram (ECG) (EKG),I63.9 Cerebral infarction, unspecified,Z86.73 Personal history of transient ischemic attack (TIA), and cerebral infarction without residual deficits,E78.2 Mixed hyperlipidemia,Z68.24 Body mass index (BMI) 24.0-24.9, adult HISTORY: Gender: F; Age: 69 y/o ; Height: HT 162.6 cm cm; Weight: WT 63.594 kg kg. Abnormal EKG; CVA TIA MHLD Quit smoking 18 years ago. COMPARISON: No comparison. ACCESSION NUMBER(S): [id number] ORDERING CLINICIAN: KIMMIE BEAVER TECHNIQUE: ONE DAY protocol. Stress injection: Date:08-12-24, 31.6 mCi of Myoview IV 20 seconds after rapid injection of Lexiscan. Rest injection: Date: 08-12-24, 11.4 mCi of Myoview IV at rest. The patient had a rapid injection of 0.4 mg of Lexiscan IV over 10 seconds. Imaging was performed by gated tomographic technique. Reason for Lexiscan: uses walker/cane STRESS TEST DATA: Resting heart rate was 73 BPM. Resting blood pressure was 128/78 mmHg. Peak blood pressure was 126/76 mmHg. Peak heart rate was 109 BPM. TEST TERMINATED DUE TO: Protocol completed FINDINGS: STRESS TEST RESULTS: Resting electrocardiogram revealed normal sinus rhythm. There were no significant ischemic ECG changes or dysrhythmias. The patient did not have chest pains/symptoms during procedure. There was a normal recovery phase. IMAGING RESULTS: Image quality was good. Rest and stress tomographic images were reviewed and revealed normal perfusion without evidence of ischemia, myocardial infarction, or left ventricular dilatation with stress. Overall left ventricular systolic function appeared to be normal without regional wall motion abnormalities. Ejection fraction was 69%. TID is 0.9 and is normal. There were no evidence of attenuation artifact. IMPRESSION: Normal Lexiscan Myoview cardiac perfusion stress test. No evidence of ischemia or myocardial infarction by perfusion imaging. Normal left ventricular systolic function, ejection fraction 69%. No previous study available for comparison. Signed by: Lyric Villatoro 08/12/2024 5:27 PM Dictation workstation: [id number] [facility] Radiology Study observation (narrative) [facility] NUCLEAR STRESS TEST EXERCISE (CARD)Ordered By: Radiologist Radiology on 08-12-2024 [facility] [employer] Work Phone: XR HAND 1-2 VIEWS RIGHTon XR HAND 1-2 VIEWS RIGHT EXAM: XR HAND 1-2 VIEWS RIGHT REASON FOR STUDY: Fall COMPARISON: None FINDINGS: 2 views The bones are demineralized. Osseous alignment of the hand is anatomic. There is an acute fracture with cortical buckling along the distal shaft of the thumb proximal phalanx. Soft tissue swelling of the proximal thumb is seen. IMPRESSION: Acute buckling fracture of the proximal phalanx of the thumb Dictated on: 08/11/2024 1:29 PM This report has been electronically signed and approved by the interpreting Radiologist. Normal Not Available XR HUMERUS RIGHTon XR HUMERUS RIGHT EXAM: XR HUMERUS RIG HT REASON FOR STUDY: Fall three weeks ago landing on right side, right arm soreness COMPARISON: None FINDINGS: 3 views Alignment: Appropriate Joint spaces: Preserved Fractures: None Soft Tissues: There is some soft tissue swelling at the olecranon. IMPRESSION: Mild olecranon soft tissue swelling. No visible humerus fracture. Dictated on: 08/11/2024 1:31 PM This report has been electronically signed and approved by the interpreting Radiologist. Normal Not Available XR SHOULDER 2+ VIEWS RIGHTon 08-11-2024 XR SHOULDER 2+ VIEWS RIGHT EXAM: XR SHOULDER 2+ VIEWS RIGHT REASON FOR STUDY: Fall three weeks ago landing on right side, right arm soreness COMPARISON: None FINDINGS: 4 views Alignment: Appropriate Joint spaces: Glenohumeral joint is maintained. There is joint space narrowing of the acromioclavicular joint with soft tissue calcifications and capsular hypertrophy superiorly. Fractures: None Soft Tissues: Minimal calcifications in the region of the distal rotator cuff are visible. There are several smooth round calcified granulomas in the visible right lung. IMPRESSION: AC joint capsular hypertrophy suggested. Minimal calcific tendinopathy suggested. Dictated on: 08/11/2024 1:27 PM This report has been electronically signed and approved by the interpreting Radiologist. Normal Not Available CT cervical spine wo conon 0 07-22-2024 CT cervical spine wo con [facility] Main [place] [id number] CT Scan Report Signed Patient: Deloris Bae MR#: [id number] : 1955 Acct:[id number] Age/Sex: 69 / F ADM Date: 07/22/24 Loc: ER Room: Type: [facility] ER Attending Dr: Copies to: Lenard Chatterjee APRN Ordering Provider: Lenard Chatterjee APRN Date of Service: 07/22/24 CT/CT cervical spine wo con: fall CT Cervical Spine withoutcontrast TECHNIQUE: Axial imaging with 2-D and 3-D reconstruction. The CT exam was performed using one or more the following dose reduction techniques: Automated exposure control, adjustment of the MA and/or Kv according to patient size, or use of the iterative reconstruction technique. COMPARISON: None HISTORY: Fell backwards. Head injury. POST SURGERY CHANGES: None BONY ALIGNMENT: Straightening with mild degenerative listhesis BONY SPINAL CANAL: Patent central bony canal FRACTURE: None BONY LESIONS: None SOFT TISSUES: Unremarkable DEGENERATIVE CHANGES: Considerable multilevel spondylosis and facet degeneration. LUNG APICES: Unremarkable ADDITIONAL FINDINGS: Atherosclerosis. CT/CT cervical spine wo con IMPRESSION: No acute process Impression dictated by: Samir Tucker M.D.07/22/2024 3:33 PM Dictation Location: [place] [address] Transcribed By: [facility] 07/22/24 1533 Dictated By: Samir Tucker DO 07/22/24 1531 Signed By: 07/22/24 1533 Normal [facility] CT head/brain wo conon 07-22 CT head/brain wo con [facility] Main [address] [address] [address] Scan Report Signed Patient: Deloris Bae MR#: [id number] : 1955 Acct:[id number] Age/Sex: 69 / F ADM Date: 07/22/24 Loc: ER Room: Type: REG ER Attending Dr: Copies to: Lenard Chatterjee APRN Ordering Provider: Lenard Chatterjee APRN Date of Service: 07/22/24 CT/CT head/brain wo con: fall backward, anticoag Unenhanced head CT TECHNIQUE: Contiguous axial imaging of the head. The CT exam was performed using one or more the following dose reduction techniques: Automated exposure control, adjustment of the MA and/or Kv according to patient size, or use of the iterative reconstruction technique. COMPARISON: 07/12/2024 HISTORY: Fell backwards. Head injury. Patient on blood thinners. VENTRICLES: Within normal limits ATROPHY: Diffuse atrophy BRAIN PARENCHYMA: Decreased density of the white matter is most consistent with chronic small vessel disease. Redemonstration of remote left posterior infarction. HEMORRHAGE: None HERNIATION: No mass effect or herniation INFARCTION: No recent vascular distribution infarction is seen. EXTRA-AXIAL FLUID COLLECTIONS None MIDBRAIN: Unremarkable CORNELIA: Unremarkable MEDULLA: Unremarkable SINUSES: Unremarkable ORBITS: Grossly unremarkable MASTOIDS: Unremarkable BONY STRUCTURES Intact ADDITIONAL FINDINGS: CT/CT head/brain wo con IMPRESSION: No acute findings. Impression dictated by: Samir Tucker M.D.07/22/2024 3:30 PM Dictation Location: [place] [address] Transcribed By: [facility] 07/22/24 1530 Dictated By: Samir Tucker DO 07/22/24 1526 Signed By: 07/22/24 1530 Normal [facility] ECG 12 Leadon 07-22-2024 ECG revealed normal sinus rhythm, cannot rule out anterior myocardial infarction undetermined age, abnormal ECG [facility] Work Phone: CT cervical spine wo conon 0 07-12-2024 CT cervical spine wo con [place] [address] CT Scan Report Signed Patient: Deloris Bae MR#: [id number] : 1955 Acct:[id number] Age/Sex: 69 / F ADM Date: 07/12/24 Loc: ER Room: Type: PRE ER Attending Dr: Copies to: Gomez Ceron DO TEMP, PROVIDER Ordering Provider: Gomez Ceron DO Date of Service: 07/12/24 CT/CT cervical spine wo con: fall ([id number]) CT/CT head/brain wo con: fall Unenhanced head CT TECHNIQUE: Contiguous axial imaging of the head. The CT exam was performed using one or more the following dose reduction techniques: Automated exposure control, adjustment of the MA and/or Kv according to patient size, or use of the iterative reconstruction technique. COMPARISON: None HISTORY: Head injury. Patient on blood thinners. VENTRICLES: Within normal limits ATROPHY: Diffuse atrophy BRAIN PARENCHYMA: Decreased density of the white matter is most consistent with chronic small vessel disease. Remote left posterior infarction. HEMORRHAGE: None HERNIATION: No mass effect or herniation INFARCTION: No recent vascular distribution infarction is seen. EXTRA-AXIAL FLUID COLLECTIONS None MIDBRAIN: Unremarkable CORNELIA: Unremarkable MEDULLA: Unremarkable SINUSES: Unremarkable ORBITS: Grossly unremarkable MASTOIDS: Unremarkable BONY STRUCTURES Intact ADDITIONAL FINDINGS: CT/CT head/brain wo con IMPRESSION: No acute findings. CT Cervical Spine withoutcontrast TECHNIQUE: Axial imaging with 2-D and 3-D reconstruction. The CT exam was performed using one or more the following dose reduction techniques: Automated exposure control, adjustment of the MA and/or Kv according to patient size, or use of the iterative reconstruction technique. COMPARISON: None HISTORY: As above POST SURGERY CHANGES: None BONY ALIGNMENT: Straightening with mild degenerative listhesis BONY SPINAL CANAL: Patent central bony canal FRACTURE: None BONY LESIONS: None SOFT TISSUES: Unremarkable DEGENERATIVE CHANGES: Extensive C4-T1 spondylosis. Multilevel facet degeneration. LUNG APICES: Unremarkable ADDITIONAL FINDINGS: IMPRESSION: No acute process Impression dictated by: Samir Tucker M.D.07/12/2024 4:39 PM Dictation Location: [place] [address] Transcribed By: [facility] 07/12/24 2702 Dictated By: Samir Tucker DO 07/12/24 1630 Signed By: 07/12/24 163 Normal [facility] ECG 12 lead ECGon 07-12-2024 ECG 12 lead ECG [facility] [address] Electrocardiograph Report Signed Patient: Deloris Bae MR#: [id number] : 1955 Acct:[id number] Age/Sex: 69 / F ADM Date: 07/12/24 Loc: ER Room: Type: PRE ER Attending Dr: Ordering Provider: Nancy Galvez DO Date of Service: 07/12/24 ECG/ECG 12 lead ECG: Fall Copies to: Test Reason : Blood Pressure : 186/81 mmHG Vent. Rate : 90 BPM Atrial Rate : 90 BPM P-R Int : 122 ms QRS Dur : 80 ms QT Int : 366 ms P-R-T Axes : 75 0 60 degrees QTcB Int : 447 ms Normal sinus rhythm Confirmed by Gomez CERON DO ([id number]) on 07/12/2024 6:24:07 PM Referred By: Electronically Signed By: Gomez CERON DO Transcribed By: MUS Signed By Gomez Ceron DO 0 07/12/24 1824 Normal [facility] X-ray reportOrdered By: Rod Tucker on 07-12-2024 Study report [facility] [address] XRay Report Signed Patient: Deloris Bae MR#: [id number] : 1955 Acct:[id number] Age/Sex: 69 / F ADM Date: 5 Loc: ER Room: Type: PRE ER Attending Dr: Copies to: Gomez Ceron DO TEMP, PROVIDER~ Ordering Provider: Gomez Ceron DO Date of Service: 07/12/24 XR/XR lumbar spine 2-3V*: Fall ([id number]) XR/XR sacrum coccyx min 2V: Fall 2 views Lumbar Spine HISTORY: Fell. Back pain. COMPARISON: None POSTSURGICAL CHANGES: Lumbar fixation. No hardware failure. Bilateral hip arthroplasties upper abdominal surgical clips BONY ALIGNMENT: Adequate HYPERMOBILITY:No bending imaging. LISTHESIS:None FRACTURE: None DEGENERATIVE CHANGES: Extensive L5-S1 spondylosis. Extensive L5-3 spondylosis. SOFT TISSUES: Unremarkable BONY MINERALIZATION:Adequate XR/XR lumbar spine 2-3V* IMPRESSION: No acute fracture 4 views of sacrum and coccyx No sacral fracture. Extensive SI joint degeneration. Postsurgical change. IMPRESSION: No acute displaced fracture. Impression dictated by: Samir Tucker M.D.07/12/2024 4:43 PM Dictation Location: [employer] Transcribed By: BRANDEN 07/12/24 1643 Dictated By: Samir Tucker DO 07/12/24 1639 Signed By: 07/12/24 1643 [facility] XR sacrum coccyx min 2Von XR sacrum coccyx min 2V [facility] [place] [address] [place] [address] XRay Report Signed Patient: Deloris Bae MR#: [id number] : 1955 Acct:[id number] Age/Sex: 69 / F ADM Date: 07/12/24 Loc: ER Room: Type: PRE ER Attending Dr: Copies to: Gomez Ceron DO TEM, PROVIDER Ordering Provider: Gomez Ceron DO Date of Service: 07/12/24 XR/XR lumbar spine 2-3V*: Fall ([id number]) XR/XR sacrum coccyx min 2V: Fall 2 views Lumbar Spine HISTORY: Fell. Back pain. COMPARISON: None POSTSURGICAL CHANGES: Lumbar fixation. No hardware failure. Bilateral hip arthroplasties upper abdominal surgical clips BONY ALIGNMENT: Adequate HYPERMOBILITY:No bending imaging. LISTHESIS:None FRACTURE: None DEGENERATIVE CHANGES: Extensive L5-S1 spondylosis. Extensive L5-3 spondylosis. SOFT TISSUES: Unremarkable BONY MINERALIZATION:Adequate XR/XR lumbar spine 2-3V* IMPRESSION: No acute fracture 4 views of sacrum and coccyx No sacral fracture. Extensive SI joint degeneration. Postsurgical change. IMPRESSION: No acute displaced fracture. Impression dictated by: Samir Tucker M.D.07/12/2024 4:43 PM Dictation Location: [employer] Transcribed By: BRANDEN 07/12/24 1643 Dictated By: Samir Tucker DO 07/12/24 1639 Signed By: 07/12/24 1643 Normal [facility] 25-hydroxyvitamin D3 [Mass/V ol]on 06-27-2024 25-hydroxyvitamin D [Mass/Vol] 49.8 ng/mL 30.0 - 100.0 ng/mL [facility] Comment on above: Vitamin D deficiency has been defined by the [place] of [employer] and an Endocrine Society practice guideline as a level of serum 25-OH vitamin D less than 20 ng/mL (1,2). The Endocrine Society went on to further define vitamin D insufficiency as a level between 21 and 29 ng/mL (2). 1. IOM ([place] of Medicine). 2010. Dietary reference intakes for calcium and D. [place]: The [employer]. 2. Sukhjinder MF, Ankita RUFFIN, Mee GUTIERREZ, et al. Evaluation, treatment, and prevention of vitamin D deficiency: an Endocrine Society clinical practice guideline. JCEM. 2010; 96(7):1911-30. ANAon 06-27-2024 Nuclear Ab Ql (S) Negative Negative [facility] CBC W Auto Differential pane l (Bld)on 06-27-2024 Basophils (Bld) [#/Vol] 0 10*3/uL [facility] Basophils/100 WBC (Bld) 0 % Not Estab. [facility] Eosinophils (Bld) [#/Vol] 0.3 10*3/uL [facility] Eosinophils/100 WBC (Bld) 4 % Not Estab. [facility] Erythrocyte distribution width (RBC) [Ratio] 13 % 11.7 - 15.4 % [facility] Hematocrit (Bld) [Volume fraction] 39.2 % 34.0 - 46.6 % [facility] Hemoglobin (Bld) [Mass/Vol] 12.7 g/dL 11.1 - 15.9 g/dL [facility] Immature granulocytes (Bld) [#/Vol] 0 10*3/uL [facility] Immature granulocytes/100 WBC (Bld) 0 % Not Estab. [facility] Lymphocytes (Bld) [#/Vol] 2.4 10*3/uL [facility] Lymphocytes/100 WBC (Bld) 33 % Not Estab. [facility] MCH (RBC) [Entitic mass] 28.6 pg 26.6 - 33.0 pg [facility] MCHC (RBC) [Mass/Vol] 32.4 g/dL 31.5 - 35.7 g/dL [facility] MCV (RBC) [Entitic vol] 88 fL 79 - 97 fL [facility] Monocytes (Bld) [#/Vol] 0.8 10*3/uL [facility] Monocytes/100 WBC (Bld) 11 % Not Estab. [facility] Neutrophils (Bld) [#/Vol] 3.9 10*3/uL [facility] Neutrophils/100 WBC (Bld) 52 % Not Estab. [facility] Platelets (Bld) [#/Vol] 374 10*3/uL [facility] RBC (Bld) [#/Vol] 4.44 10*6/uL [facility] WBC (Bld) [#/Vol] 7.4 10*3/uL [facility] Comprehensive metabolic pane smith 06-27-2024 Albumin [Mass/Vol] 4.3 g/dL 3.9 - 4.9 g/dL [facility] ALP [Catalytic activity/Vol] 57 U/L [facility] ALT [Catalytic activity/Vol] 15 U/L [facility] AST [Catalytic activity/Vol] 23 U/L [facility] Bilirubin [Mass/Vol] 0.3 mg/dL 0.0 - 1 .2 mg/dL [facility] Calcium [Mass/Vol] 9.5 mg/dL 8.7 - 10. 3 mg/dL [facility] Chloride [Moles/Vol] 107 mmol/L High 96 - 10 6 mmol/L [facility] CO2 [Moles/Vol] 24 mmol/L 20 - 29 mmol/L [facility] Creatinine [Mass/Vol] 0.97 mg/dL 0.57 - 1.00 mg/dL [facility] GFR/1.73 sq M.predicted among non-blacks MDRD (S/P/Bld) [Vol rate/Area] 63 mL/min/{1.73_m2} 59 - PINF mL/min/1.7 3 [facility] Globulin (S) [Mass/Vol] 2.2 g/dL 1.5 - 4.5 g/dL [facility] Glucose [Mass/Vol] 85 mg/dL 70 - 99 mg/dL [facility] Potassium [Moles/Vol] 4.4 mmol/L 3.5 - 5.2 mmol/L [facility] Protein [Mass/Vol] 6.5 g/dL 6.0 - 8.5 g/dL [facility] Sodium [Moles/Vol] 145 mmol/L High 134 - 144 mmol/L [facility] Urea nitrogen [Mass/Vol] 13 mg/dL 8 - 27 mg/dL [facility] Urea nitrogen/Creatinine [Mass ratio] 13 mg/mg 12 - 28 [facility] Lipid 1996 panelon Cholesterol [Mass/Vol] 176 mg/dL 100 - 199 mg/dL [facility] Cholesterol in HDL [Mass/Vol] 59 mg/dL 39 - PINF mg/dL [facility] Cholesterol in LDL [Mass/Vol] 94 mg/dL 0 - 99 mg/dL [facility] Cholesterol in VLDL [Mass/Vol] 23 mg/dL 5 - 40 mg/dL [facility] Triglyceride [Mass/Vol] 133 mg/dL 0 - 149 mg/dL [facility] No Panel Informationon 06-27 Interpretation and review of laboratory results Abnormal [facility] Performed at: [address] [id number] Leadership Coach: Roverto Rodriguez PhD, Phone: [phone] [facility] Specimen Status Reporton Clindamycin Disk diffusion (KB) [[facility]] Comment [facility] Comment on above: Ambig Abbrev CMP14 D efault Ambig Abbrev CMP14 Default A hand-written panel/profile was received from your office. In accordance with the [facility] Ambiguous Test Code Policy dated December 2002, we have completed your order by using the closest currently or formerly recognized AMA panel. We have assigned Comprehensive Metabolic Panel (14), Test Code #265849 to this request. If this is not the testing you wished to receive on this specimen, please contact the [facility] Client Inquiry/Technical Services Department to clarify the test order. We appreciate your business. Ambig Abbrev LP Default Ambig Abbrev LP Default A hand-written panel/profile was received from your office. In accordance with the [facility] Ambiguous Test Code Policy dated December 2002, we have completed your order by using the closest currently or formerly recognized AMA panel. We have assigned Lipid Panel, Test Code #976022 to this request. If this is not the testing you wished to receive on this specimen, please contact the [facility] Client Inquiry/Technical Services Department to clarify the test order. We appreciate your business. Vitamin B12on 06-27-2024 Cobalamin (Vitamin B12) [Mass/Vol] 1958 pg/mL High 232 - 1245 pg/mL [facility] Vitamin B6on 06-27-2024 Pyridoxal phosphate [Mass/Vol] 14.6 ug/L 3.4 - 65.2 ug/L [facility] Comment on above: Deficiency: <3.4 Marginal: 3.4 - 5.1 Adequate: >5.1 Test(s) 705309-Wzrol in B6 was developed and its performance characteristics determined by [facility]. It has not been cleared or approved by the Food and Drug Administration. Performed at: - [facility] [address] [id number] Leadership Coach: Ciaran Esparza MD, Phone: [phone] [employer] [place] Event [employer] Technician Monitorin judy 06-24-2024 [place] Event [employer] Checkout Technician Monitoring [facility] [address] Cardiac Event Monitor Signed Patient: Deloris Bae MR#: [id number] : 1955 Acct:[id number] Age/Sex: 69 / F ADM Date: 06/02/24 Loc: Room: Type: [facility] Attending Dr: Gonzalo Nicole MD Copies to: MD Gonzalo Montgomery MD Ordering Provider: Gonzalo Nicole MD Date of Service: 06/02/24 [place] Event [facility] Monitoring: stroke,unspecified REFERRING PHYSICIAN: Gonzalo Nicole MD REASON FOR STUDY: Unexplained stroke. PROCEDURE: The patient underwent 14-day event monitor. Baseline rhythm sinus with average heart rate of 84 beats per minute, ranging from 57 up to 133 beats per minute. Rare premature atrial contractions and premature ventricular contractions were noted. Several brief runs of narrow complex tachycardia, suggestive of possible atrial tachycardia or SVT, longest was 16 beats. No atrial fibrillation was seen. No patient symptoms were reported. CONCLUSION: 1. Normal sinus rhythm. 2. Rare isolated ventricular and supraventricular ectopic beats. 3. A few very brief runs of narrow complex tachycardia suggestive of atrial tachycardia or supraventricular tachycardia, longest 16 beats. 4. No atrial fibrillation. 5. No symptoms entered by the patient. Transcribed By: NTS 06/25/24 0642 Dictated By: Lyric Villatoro MD 06/24/24 1441 Signed By: 06/25/24 1452 Normal [facility] Basic Metabolic Panelon 12- Anion gap [Moles/Vol] 11.1 mmol/L Normal 6.0-15.0 [facility] Comment on above: Performed By: #### C UU, ADDONUAPLUS #### [address] Calcium [Mass/Vol] 8.6 mg/dL Normal 8.6-10.3 [facility] [facility] Comment on above: Performed By: #### C UU, ADDONUAPLUS #### [address] Chloride [Moles/Vol] 107 mmol/L Normal 98-107 [facility] Comment on above: Performed By: #### C UU, ADDONUAPLUS #### [address] CO2 [Moles/Vol] 25.6 mmol/L Normal 21.0-31.0 [facility] Comment on above: Performed By: #### C UU, ADDONUAPLUS #### [address] Creatinine [Mass/Vol] 0.87 mg/dL Normal 0.60-1.20 [facility] Comment on above: Performed By: #### C UU, ADDONUAPLUS #### [place] [address] [place] Creatinine Clr Calc Pharmacy 59.10 Normal [facility] Comment on above: Result Comment: PERF ORMED BY: [place] [address] PATHOLOGIST MARITIME ENGINEER CLAUDIA SKY M.D. Performed By: #### C UU, ADDONUAPLUS #### [place] [address] [place] GFR/1.73 sq M.predicted MDRD (S/P/Bld) [Vol rate/Area] mL/min/{1.73_m2} Normal [facility] Comment on above: Performed By: #### C LAURENT ADDONUAPLUS #### [address] Glucose [Mass/Vol] 92 mg/dL Normal 70-100 [facility] Comment on above: Result Comment: [facility] Glucose Reference Range is dependent on time and content of last meal. Glucose of more than 200 mg/dL in a nonstressed, ambulatory subject supports the diagnosis of Diabetes Mellitus. ADA recommended reference range Performed By: #### C UCate ADDONUAPLUS #### [address] Potassium [Moles/Vol] 3.7 mmol/L Normal 3.5-5.1 [facility] Comment on above: Performed By: #### Veronica MANCILLA, ADDONUAPLUS #### [address] Sodium [Moles/Vol] 140 mmol/L Normal 136-145 [facility] Comment on above: Performed By: #### C LAURENT, ADDONUAPLUS #### [address] Urea nitrogen [Mass/Vol] 18 mg/dL Normal 7-25 [facility] Comment on above: Performed By: #### Veronica UCate, ADDONUAPLUS #### [place] [address] [place] Basophils Auto (Bld) [#/Vol] Ordered By: Amelie Childress on 06-01-2024 Basophils (Bld) [#/Vol] Automated basophil count 0.0-0.2 [facility] Basophils/100 WBC Auto (Bld) Ordered By: Amelie Childress on 06-01-2024 Basophils/100 WBC (Bld) Automated basophil % . [facility] Calcium [Mass/volume] in Ser um or PlasmaOrdered By: Amelie Childress on 06-01-2024 Calcium [Mass/Vol] Calcium [Mass/volume ] in Serum or Plasma 8.6-10.3 [facility] Carbon dioxide, total [Moles /volume] in Serum or PlasmaOrdered By: Amelie Childress on 06-01-2024 CO2 [Moles/Vol] Carbon dioxide, tota l [Moles/volume] in Serum or Plasma 21.0-31.0 [facility] Chloride [Moles/volume] in S [place] or PlasmaOrdered By: Amelie Childress on 06-01-2024 Chloride [Moles/Vol] Chloride [Moles/vol ume] in Serum or Plasma 98-107 [facility] Complete Blood Count Auto Di ffon 06-01-2024 Basophils (Bld) [#/Vol] 0.0 10*3/uL Normal 0.0-0.2 [facility] Comment on above: Result Comment: PERF ORMED BY: [address] [place] [address] PATHOLOGIST MARITIME ENGINEER CLAUDIA SKY M.D. Performed By: #### C UU, ADDONUAPLUS #### [address] Basophils/100 WBC (Bld) 0.3 % Normal . [facility] Comment on above: Performed By: #### C UU, ADDONUAPLUS #### [address] Eosinophils (Bld) [#/Vol] 0.3 10*3/uL Normal 0.0-0.45 [facility] Comment on above: Performed By: #### C UU, ADDONUAPLUS #### [address] Eosinophils/100 WBC (Bld) 5.2 % Normal . [facility] Comment on above: Performed By: #### C UU, ADDONUAPLUS #### [address] Erythrocyte distribution width (RBC) [Ratio] 15.4 % High 11.9-15.3 [facility] Comment on above: Performed By: #### C UU, ADDONUAPLUS #### [address] Hematocrit (Bld) [Volume fraction] 30.8 % Low 34.0-46.4 [facility] Comment on above: Performed By: #### C UU, ADDONUAPLUS #### [address] Hemoglobin (Bld) [Mass/Vol] 10.1 g/dL Low 11.8-15.4 [facility] Comment on above: Performed By: #### C UU, ADDONUAPLUS #### [address] Lymphocytes (Bld) [#/Vol] 1.8 10*3/uL Normal 1.00-4.8 [facility] Comment on above: Performed By: #### C UU, ADDONUAPLUS #### [address] Lymphocytes/100 WBC (Bld) 28.6 % Normal . [facility] Comment on above: Performed By: #### C UU, ADDONUAPLUS #### [address] MCH (RBC) [Entitic mass] 28.8 pg Normal 24.7-34.3 [facility] Comment on above: Performed By: #### C UU, ADDONUAPLUS #### [address] MCV (RBC) [Entitic vol] 87.8 fL Normal 80-100 [facility] Comment on above: Performed By: #### C UU, ADDONUAPLUS #### [address] Mean Corpuscular HGB Conc 32.9 g/dL Normal 32.0-35.0 [facility] Comment on above: Performed By: #### C UU, ADDONUAPLUS #### [address] Monocytes (Bld) [#/Vol] 1.0 10*3/uL High 0.0-0.8 [facility] Comment on above: Performed By: #### C UU, ADDONUAPLUS #### [address] Monocytes/100 WBC (Bld) 15.6 % Normal . [facility] Comment on above: Performed By: #### C UU, ADDONUAPLUS #### [address] Neutrophils (Bld) [#/Vol] 3.1 10*3/uL Normal 1.8-7.7 [facility] Comment on above: Performed By: #### C UU, ADDONUAPLUS #### [address] Neutrophils/100 WBC (Bld) 50.3 % Normal . [facility] Comment on above: Performed By: #### C UU, ADDONUAPLUS #### [address] NRBC% 0.0 /100{WBC} Normal 0-0.5 [facility] Comment on above: Performed By: #### C UU, ADDONUAPLUS #### [address] Platelet mean volume (Bld) [Entitic vol] 8.4 fL Normal 6.3-10.7 [facility] Comment on above: Performed By: #### C UU, ADDONUAPLUS #### [address] Platelets (Bld) [#/Vol] 263 10*3/uL Normal 150-450 [facility] Comment on above: Performed By: #### C UU, ADDONUAPLUS #### [address] RBC (Bld) [#/Vol] 3.52 10*6/uL Low 3.60-5.00 [facility] Comment on above: Performed By: #### C UU, ADDONUAPLUS #### [place] [address] WBC (Bld) [#/Vol] 6.2 10*3/uL Normal 3.8-11.6 [facility] Comment on above: Performed By: #### C UU, ADDONUAPLUS #### [facility] [address] Creatinine [Mass/volume] in Serum or PlasmaOrdered By: Amelie Childress on 06-01-2024 Creatinine [Mass/Vol] Creatinine [Mass/v olume] in Serum or Plasma 0.60-1.20 [facility] Eosinophils Auto (Bld) [#/Vo l]Ordered By: Amelie Childress on 06-01-2024 Eosinophils (Bld) [#/Vol] Automated eosinophil count 0.0-0.45 [facility] Eosinophils/100 WBC Auto (Bl d)Ordered By: Amelie Childress on 06-01-2024 Eosinophils/100 WBC (Bld) Automated eosinophil % . [facility] Erythrocyte distribution wid th Auto (RBC) [Ratio]Ordered By: Amelie Childress on 06-01-2024 Erythrocyte distribution width (RBC) [Ratio] Erythrocyte distribution width [Ratio] by Automated count High 11.9-15.3 [facility] Glucose [Mass/volume] in Ser um or PlasmaOrdered By: Amelie Childress on 06-01-2024 Glucose [Mass/Vol] Glucose [Mass/volume ] in Serum or Plasma 70-100 [facility] Comment on above: ADA recommended refe rence rangeRandom Glucose Reference Range is dependent on time and content of last meal. Glucose of more than 200 mg/dL in a nonstressed, ambulatory subject supports the diagnosis of Diabetes Mellitus. Hematocrit Auto (Bld) [Volum e fraction]Ordered By: Amelie Childress on 06-01-2024 Hematocrit (Bld) [Volume fraction] Hematocrit [Volume Fraction] of Blood by Automated count Low 34.0-46.4 [facility] Hemoglobin [Mass/volume] in BloodOrdered By: Amelie Childress on 06-01-2024 Hemoglobin (Bld) [Mass/Vol] Hemoglobin [Mass/volume] in Blood Low 11.8-15.4 [facility] Leukocytes [#/volume] correc anita for nucleated erythrocytes in Blood by Automated counOrdered By: Amelie Childress on 06-01-2024 WBC corrected for nucl RBC Auto (Bld) [#/Vol] Leukocytes [#/volume] corrected for nucleated erythrocytes in Blood by Automated coun 3.8-11.6 [facility] Lymphocytes Auto (Bld) [#/Vo l]Ordered By: Amelie Childress on 06-01-2024 Lymphocytes (Bld) [#/Vol] Lymphocytes [#/volume] in Blood by Automated count 1.00-4.8 [facility] Lymphocytes/100 WBC Auto (Bl d)Ordered By: Amelie Childress on 06-01-2024 Lymphocytes/100 WBC (Bld) Lymphocytes/100 leukocytes in Blood by Automated count . [facility] MCH Auto (RBC) [Entitic mass ]Ordered By: Amelie Childress on 06-01-2024 MCH (RBC) [Entitic mass] MCH [Entitic mass] by Automated count 24.7-34.3 [facility] MCHC Auto (RBC) [Mass/Vol]Or dered By: Amelie Childress on 06-01-2024 MCHC (RBC) [Mass/Vol] MCHC [Mass/volume] by Automated count 32.0-35.0 [facility] MCV Auto (RBC) [Entitic vol] Ordered By: Amelie Chidlress on 06-01-2024 MCV (RBC) [Entitic vol] MCV [Entitic volume] by Automated count 80-100 [facility] Monocytes Auto (Bld) [#/Vol] Ordered By: Amelie Childress on 06-01-2024 Monocytes (Bld) [#/Vol] Automated blood monocyte count High 0.0-0.8 [facility] Monocytes/100 WBC Auto (Bld) Ordered By: Amelie Childress on 06-01-2024 Monocytes/100 WBC (Bld) Automated monocyte % . [facility] Neutrophils Auto (Bld) [#/Vo l]Ordered By: Amelie Childress on 06-01-2024 Neutrophils (Bld) [#/Vol] Neutrophils [#/volume] in Blood by Automated count 1.8-7.7 [facility] Neutrophils/100 WBC Auto (Bl d)Ordered By: Amelie Childress on 06-01-2024 Neutrophils/100 WBC (Bld) Automated neutrophil % . [facility] No Panel InformationOrdered By: Amelie Childress on 06-01-2024 Estimated GFR (CKD-EPI) > 60.0 mL/Min [facility] Creatinine Clearance (Chem 59.10 [facility] Nucleated erythrocytes [Pres ence] in Blood by Automated countOrdered By: Amelie Childress on 06-01-2024 Nucleated RBC Auto Ql (Bld) Nucleated erythrocytes [Presence] in Blood by Automated count 0-0.5 [facility] Platelet mean volume Auto (B ld) [Entitic vol]Ordered By: Amelie Childress on 06-01-2024 Platelet mean volume (Bld) [Entitic vol] Platelet mean volume [Entitic volume] in Blood by Automated count 6.3-10.7 [facility] Platelets Auto (Bld) [#/Vol] Ordered By: Amelie Childress on 06-01-2024 Platelets (Bld) [#/Vol] Platelets [#/volume] in Blood by Automated count 150-450 [facility] Potassium [Moles/volume] in Serum or PlasmaOrdered By: Amelie Childress on 06-01-2024 Potassium [Moles/Vol] Potassium [Moles/v olume] in Serum or Plasma 3.5-5.1 [facility] RBC Auto (Bld) [#/Vol]Ordere d By: Amelie Childress on 06-01-2024 RBC (Bld) [#/Vol] Erythrocytes [#/volu me] in Blood by Automated count Low 3.60-5.00 [facility] Serum or plasma anion gap de terminationOrdered By: Amelie Childress on 06-01-2024 Anion gap [Moles/Vol] Serum or plasma an ion gap determination 6.0-15.0 [facility] Sodium [Moles/volume] in Ser um or PlasmaOrdered By: Amelie Childress on 06-01-2024 Sodium [Moles/Vol] Sodium [Moles/volume ] in Serum or Plasma 136-145 [facility] Urea nitrogen [Mass/volume] in Serum or PlasmaOrdered By: Amelie Childress on 06-01-2024 Urea nitrogen [Mass/Vol] Urea nitrogen [Mass/volume] in Serum or Plasma 7-25 [facility] WBC Auto (Bld) [#/Vol]Ordere d By: Amelie Childress on 06-01-2024 WBC (Bld) [#/Vol] Leukocytes [#/volume ] in Blood by Automated count 3.8-11.6 [facility] Appearance of UrineOrdered B y: Fanny Espinal on 05-25-2024 Appearance (U) Urine appearance Clear [facility] Bacteria [Presence] in Urine by AutomatedOrdered By: Fanny Espinal on 05-25-2024 Bacteria Auto Ql (U) Bacteria [Presence] in Urine by Automated None Seen [facility] Bilirubin Test strip Ql (U)O rdered By: Fanny Espinal on 05-25-2024 Bilirubin Ql (U) Bilirubin.total [Pre sence] in Urine by Test strip Negative [facility] Color Auto (U)Ordered By: Elijah Espinal on 05-25-2024 Color (U) Color of Urine by Auto Yellow Fi relaFormerly [facility] Dipstick and Microscopicon 1 07-26-2023 Appearance (U) Clear Normal Clear [facility] Comment on above: Order Comment: Name Collection Type:: Voided Performed By: #### C UU, ADDONUAPLUS #### [facility] [address] [place] [address] [place] Bacteria,Urine Rare Normal None Seen [facility] Comment on above: Order Comment: Name Collection Type:: Voided Performed By: #### C UU, ADDONUAPLUS #### [facility] [address] [place] [address] [place] Bilirubin,Urine Negative Normal Negative [facility] Comment on above: Order Comment: Name Collection Type:: Voided Performed By: #### C UU, ADDONUAPLUS #### [facility] [address] [place] [address] [place] Color (U) Colorless Normal Yellow [facility] Comment on above: Order Comment: Name Collection Type:: Voided Performed By: #### C UU, ADDONUAPLUS #### [place] [address] [place] Glucose Ql (U) Normal Normal Normal [facility] Comment on above: Order Comment: Name Collection Type:: Voided Performed By: #### C UU, ADDONUAPLUS #### [place] [address] [place] Hyaline Casts,Urine 0 [LPF] Normal 0-8 [facility] Comment on above: Order Comment: Name Collection Type:: Voided Result Comment: PERF ORMED BY: [place] [address] PATHOLOGIST MARITIME ENGINEER CLAUDIA SKY M.D. Performed By: #### C UU, ADDONUAPLUS #### [address] Ketones Ql (U) Negative Normal Negative [facility] Comment on above: Order Comment: Name Collection Type:: Voided Performed By: #### C UU, ADDONUAPLUS #### [place] [address] [place] Leukocyte esterase Test strip Ql (U) 2+ High Negative [facility] Comment on above: Order Comment: Name Collection Type:: Voided Performed By: #### C UU, ADDONUAPLUS #### [place] [address] [place] Nitrite,Urine Negative Normal Negative [facility] Comment on above: Order Comment: Name Collection Type:: Voided Performed By: #### C UU, ADDONUAPLUS #### [place] [address] [place] Occult Blood,Urine Negative Normal Negative [facility] Comment on above: Order Comment: Name Collection Type:: Voided Result Comment: PERF ORMED BY: [place] [address] PATHOLOGIST MARITIME ENGINEER CLAUDIA SKY M.D. Performed By: #### C UU, ADDONUAPLUS #### [address] pH (U) 6.0 [pH] Normal 5.0-9.0 [facility] Comment on above: Order Comment: Name Collection Type:: Voided Performed By: #### C UU, ADDONUAPLUS #### [address] Protein,Urine Negative Normal Negative [facility] Comment on above: Order Comment: Name Collection Type:: Voided Performed By: #### C UU, ADDONUAPLUS #### [address] RBC,Urine 1 [HPF] Normal 0-4 [facility] Comment on above: Order Comment: Name Collection Type:: Voided Performed By: #### C UU, ADDONUAPLUS #### [address] Specificy [place],Urine 1.011 Normal 1.001-1.03 0 [facility] Comment on above: Order Comment: Name Collection Type:: Voided Performed By: #### C UU, ADDONUAPLUS #### [address] Squamous Epithelial Cell,Urine 1 [HPF] Normal 0-2 [facility] Comment on above: Order Comment: Name Collection Type:: Voided Performed By: #### C UU, ADDONUAPLUS #### [address] Urobilinogen,Urine Normal Normal Normal [facility] Comment on above: Order Comment: Name Collection Type:: Voided Performed By: #### C UU, ADDONUAPLUS #### [address] WBC,Urine 5 [HPF] High 0-4 [facility] Comment on above: Order Comment: Name Collection Type:: Voided Performed By: #### C UU, ADDONUAPLUS #### [address] Epithelial cells.squamous [# /area] in Urine sediment by Automated countOrdered By: Fanny Espinal on 05-25-2024 Epithelial cells.squamous Auto (Urine sed) [#/Area] Epithelial cells.squamous [#/area] in Urine sediment by Automated count 0-2 [facility] Erythrocytes [#/area] in Uri ne sediment by Automated countOrdered By: Fanny Espinal on 05-25-2024 RBC Auto (Urine sed) [#/Area] Erythrocytes [#/area] in Urine sediment by Automated count 0-4 [facility] Glucose [Mass/volume] in Uri ne by Test stripOrdered By: Fanny Espinal on 05-25-2024 Glucose Test strip (U) [Mass/Vol] Glucose [Mass/volume] in Urine by Test strip Normal [facility] Hemoglobin Test strip Ql (U) Ordered By: Fanny Espinal on 05-25-2024 Hemoglobin Ql (U) Hemoglobin [Presence ] in Urine by Test strip Negative [facility] Hyaline casts [#/area] in Ur ine sediment by Automated countOrdered By: Fanny Espinal on 05-25-2024 Hyaline casts Auto (Urine sed) [#/Area] Hyaline casts [#/area] in Urine sediment by Automated count 0-8 [facility] Ketones Test strip Ql (U)Ord ered By: Fanny Espinal on 05-25-2024 Ketones Ql (U) Ketones [Presence] i n Urine by Test strip Negative [facility] Leukocyte esterase [Presence ] in Urine by Test stripOrdered By: Fanny Espinal on 05-25-2024 Leukocyte esterase Test strip Ql (U) Leukocyte esterase [Presence] in Urine by Test strip High Negative [facility] Leukocytes [#/area] in Urine sediment by Automated countOrdered By: Fanny Espinal on 05-25-2024 WBC Auto (Urine sed) [#/Area] Leukocytes [#/area] in Urine sediment by Automated count High 0-4 [facility] Nitrite Test strip Ql (U)Ord ered By: Fanny Espinal on 05-25-2024 Nitrite Ql (U) Nitrite [Presence] i n Urine by Test strip Negative [facility] Protein Test strip (U) [Mass /Vol]Ordered By: Fanny Espinal on 05-25-2024 Protein (U) [Mass/Vol] Protein [Mass/vol ume] in Urine by Test strip Negative [facility] Specific gravity Test strip (U) [Rel density]Ordered By: Fanny Espinal on 05-25-2024 Specific gravity (U) [Rel density] Specific gravity of Urine by Test strip 1.001-1.03 0 [facility] Urine Cultureon 05-25-2024 Bacteria identified Cx Nom (U) <10,000 colonies/ml mixed bacterial skin contaminants including mixed gram negative bacilli - 2 Days PERFORMED BY: [place] [address] PATHOLOGIST MARITIME ENGINEER CLAUDIA SKY M.D. Normal [facility] Comment on above: Performed By: #### C UU, ADDONUAPLUS #### [address] Urine cultureOrdered By: Shahrzad Duncan on 05-25-2024 Bacteria identified Cx Nom (U) Urine culture [facility] Urobilinogen Test strip (U) [Mass/Vol]Ordered By: Fanny Espinal on 05-25-2024 Urobilinogen (U) [Mass/Vol] Urobilinogen [Mass/volume] in Urine by Test strip Normal [facility] pH Test strip (U)Ordered By: Fanny Espinal on 05-25-2024 pH (U) pH of Urine by Test strip 5.0-9.0 [facility] Basic Metabolic Panelon Anion gap [Moles/Vol] 8.7 mmol/L Normal 6.0-15.0 [facility] Comment on above: Performed By: #### B MP, CBC #### [facility] [address] [place] [address] Calcium [Mass/Vol] 8.2 mg/dL Low 8.6-10.3 [facility] Comment on above: Performed By: #### B MP, CBC #### [address] Chloride [Moles/Vol] 108 mmol/L High 98-107 [facility] Comment on above: Performed By: #### B MP, CBC #### [place] [address] [place] CO2 [Moles/Vol] 25.6 mmol/L Normal 21.0-31.0 [facility] Comment on above: Performed By: #### B MP, CBC #### [address] Creatinine [Mass/Vol] 0.88 mg/dL Normal 0.60-1.20 [facility] Comment on above: Performed By: #### B MP, CBC #### [place] [address] [place] Creatinine Clr Calc Pharmacy 58.39 Normal [facility] Comment on above: Result Comment: PERF ORMED BY: [place] [address] PATHOLOGIST MARITIME ENGINEER CLAUDIA SKY M.D. Performed By: #### B MP, CBC #### [place] [address] [place] GFR/1.73 sq M.predicted MDRD (S/P/Bld) [Vol rate/Area] mL/min/{1.73_m2} Normal [facility] Comment on above: Performed By: #### B MP, CBC #### [place] [address] [place] Glucose [Mass/Vol] 127 mg/dL High 70-100 [facility] Comment on above: Result Comment: [place] Glucose Reference Range is dependent on time and content of last meal. Glucose of more than 200 mg/dL in a nonstressed, ambulatory subject supports the diagnosis of Diabetes Mellitus. ADA recommended reference range Performed By: #### B MP, CBC #### [place] [address] [place] Potassium [Moles/Vol] 4.3 mmol/L Normal 3.5-5.1 [facility] Comment on above: Performed By: #### B MP, CBC #### [place] [address] [place] Sodium [Moles/Vol] 138 mmol/L Normal 136-145 [facility] Comment on above: Performed By: #### B MP, CBC #### [address] Urea nitrogen [Mass/Vol] 20 mg/dL Normal 7-25 [facility] Comment on above: Performed By: #### B MP, CBC #### [address] Complete Blood Count Auto Di ffon 05-24-2024 Basophils (Bld) [#/Vol] 0.0 10*3/uL Normal 0.0-0.2 [facility] Comment on above: Result Comment: PERF ORMED BY: [place] [address] PATHOLOGIST MARITIME ENGINEER CLAUDIA SKY M.D. Performed By: #### B MP, CBC #### [address] Basophils/100 WBC (Bld) 0.3 % Normal . [facility] Comment on above: Performed By: #### B MP, CBC #### [address] Eosinophils (Bld) [#/Vol] 0.3 10*3/uL Normal 0.0-0.45 [facility] Comment on above: Performed By: #### B MP, CBC #### [address] Eosinophils/100 WBC (Bld) 5.9 % Normal . [facility] Comment on above: Performed By: #### B MP, CBC #### [address] Erythrocyte distribution width (RBC) [Ratio] 15.6 % High 11.9-15.3 [facility] Comment on above: Performed By: #### B MP, CBC #### [address] Hematocrit (Bld) [Volume fraction] 30.9 % Low 34.0-46.4 [facility] Comment on above: Performed By: #### B MP, CBC #### [address] Hemoglobin (Bld) [Mass/Vol] 10.0 g/dL Low 11.8-15.4 [facility] Comment on above: Performed By: #### B MP, CBC #### [address] Lymphocytes (Bld) [#/Vol] 2.0 10*3/uL Normal 1.00-4.8 [facility] Comment on above: Performed By: #### B MP, CBC #### [address] Lymphocytes/100 WBC (Bld) 35.6 % Normal . [facility] Comment on above: Performed By: #### B MP, CBC #### [address] MCH (RBC) [Entitic mass] 28.9 pg Normal 24.7-34.3 [facility] Comment on above: Performed By: #### B MP, CBC #### [address] MCV (RBC) [Entitic vol] 89.0 fL Normal 80-100 [facility] Comment on above: Performed By: #### B MP, CBC #### [address] Mean Corpuscular HGB Conc 32.4 g/dL Normal 32.0-35.0 [facility] Comment on above: Performed By: #### B MP, CBC #### [address] Monocytes (Bld) [#/Vol] 0.9 10*3/uL High 0.0-0.8 [facility] Comment on above: Performed By: #### B MP, CBC #### [address] Monocytes/100 WBC (Bld) 15.5 % Normal . [facility] Comment on above: Performed By: #### B MP, CBC #### [address] [place] [address] [place] Neutrophils (Bld) [#/Vol] 2.4 10*3/uL Normal 1.8-7.7 [facility] Comment on above: Performed By: #### B MP, CBC #### [place] [address] [place] Neutrophils/100 WBC (Bld) 42.7 % Normal . [facility] Comment on above: Performed By: #### B MP, CBC #### [address] NRBC% 0.1 /100{WBC} Normal 0-0.5 [facility] Comment on above: Performed By: #### B MP, CBC #### [address] Platelet mean volume (Bld) [Entitic vol] 8.2 fL Normal 6.3-10.7 [facility] Comment on above: Performed By: #### B MP, CBC #### [place] [address] [place] Platelets (Bld) [#/Vol] 267 10*3/uL Normal 150-450 [facility] Comment on above: Performed By: #### B MP, CBC #### [place] [address] [place] RBC (Bld) [#/Vol] 3.47 10*6/uL Low 3.60-5.00 [facility] Comment on above: Performed By: #### B MP, CBC #### [place] [address] [place] WBC (Bld) [#/Vol] 5.6 10*3/uL Normal 3.8-11.6 [facility] Comment on above: Performed By: #### B MP, CBC #### [place] [address] [place] Glucose Glucometer (BldC) [M ass/Vol]Ordered By: Trace Laughlin on 05-24-2024 Glucose [Mass/Vol] Capillary blood gluc ose measurement by glucometer (mass/volume) [facility] Comment on above: Random Glucose Refer ence Range is dependent on time and content of last meal. Glucose of more than 200 mg/dL in a nonstressed, ambulatory subject supports the diagnosis of Diabetes Mellitus. Glucose Poct Glucometerson 1 07-25-2023 Glucose [Mass/Vol] 147 mg/dL Normal [facility] Comment on above: Result Comment: [place] om Glucose Reference Range is dependent on time and content of last meal. Glucose of more than 200 mg/dL in a nonstressed, ambulatory subject supports the diagnosis of Diabetes Mellitus. PERFORMED BY: [place] [address] PATHOLOGIST MARITIME ENGINEER CLAUDIA SKY M.D. Performed By: #### C UU ADDONUAPLUS #### [address] Basic Metabolic Panelon 12-0 Anion gap [Moles/Vol] 8.5 mmol/L Normal 6.0-15.0 [facility] Comment on above: Performed By: #### C UU, ADDONUAPLUS #### [address] Calcium [Mass/Vol] 8.4 mg/dL Low 8.6-10.3 [facility] Comment on above: Performed By: #### C UU, ADDONUAPLUS #### [place] [address] [place] Chloride [Moles/Vol] 111 mmol/L High 98-107 [facility] Comment on above: Performed By: #### C UU, ADDONUAPLUS #### [place] [address] [place] CO2 [Moles/Vol] 25.4 mmol/L Normal 21.0-31.0 [facility] Comment on above: Performed By: #### C UU, ADDONUAPLUS #### [place] [address] [place] Creatinine [Mass/Vol] 0.85 mg/dL Normal 0.60-1.20 [facility] Comment on above: Performed By: #### C UU, ADDONUAPLUS #### [place] [address] [place] Creatinine Clr Calc Pharmacy 60.49 Normal [facility] Comment on above: Result Comment: PERF ORMED BY: [place] [address] PATHOLOGIST MARITIME ENGINEER CLAUDIA SKY M.D. Performed By: #### C UU, ADDONUAPLUS #### [place] [address] [place] GFR/1.73 sq M.predicted MDRD (S/P/Bld) [Vol rate/Area] mL/min/{1.73_m2} Normal [facility] Comment on above: Performed By: #### C UU, ADDONUAPLUS #### [place] [address] [place] Glucose [Mass/Vol] 98 mg/dL Normal 70-100 [facility] Comment on above: Result Comment: [place] Glucose Reference Range is dependent on time and content of last meal. Glucose of more than 200 mg/dL in a nonstressed, ambulatory subject supports the diagnosis of Diabetes Mellitus. ADA recommended reference range Performed By: #### C UCate ADDONUAPLUS #### [place] [address] [place] Potassium [Moles/Vol] 3.9 mmol/L Normal 3.5-5.1 [facility] Comment on above: Performed By: #### C UU ADDONUAPLUS #### [place] [address] [place] Sodium [Moles/Vol] 141 mmol/L Normal 136-145 [facility] Comment on above: Performed By: #### C UU ADDONUAPLUS #### [place] [address] [place] Urea nitrogen [Mass/Vol] 13 mg/dL Normal 7-25 [facility] Comment on above: Performed By: #### C UU ADDONUAPLUS #### [facility] [address] Complete Blood Count Auto Di ffon 05-22-2024 Basophils (Bld) [#/Vol] 0.0 10*3/uL Normal 0.0-0.2 [facility] Comment on above: Result Comment: PERF ORMED BY: [place] [address] PATHOLOGIST MARITIME ENGINEER CLAUDIA SKY M.D. Performed By: #### C UU, ADDONUAPLUS #### [address] Basophils/100 WBC (Bld) 0.3 % Normal . [facility] Comment on above: Performed By: #### C UU, ADDONUAPLUS #### [address] Eosinophils (Bld) [#/Vol] 0.2 10*3/uL Normal 0.0-0.45 [facility] Comment on above: Performed By: #### C UU, ADDONUAPLUS #### [address] Eosinophils/100 WBC (Bld) 4.3 % Normal . [facility] Comment on above: Performed By: #### C UU, ADDONUAPLUS #### [address] Erythrocyte distribution width (RBC) [Ratio] 15.9 % High 11.9-15.3 [facility] Comment on above: Performed By: #### C UU, ADDONUAPLUS #### [address] Hematocrit (Bld) [Volume fraction] 31.7 % Low 34.0-46.4 [facility] Comment on above: Performed By: #### C UU, ADDONUAPLUS #### [address] Hemoglobin (Bld) [Mass/Vol] 10.3 g/dL Low 11.8-15.4 [facility] Comment on above: Performed By: #### C UU, ADDONUAPLUS #### [address] Lymphocytes (Bld) [#/Vol] 1.9 10*3/uL Normal 1.00-4.8 [facility] Comment on above: Performed By: #### C UU, ADDONUAPLUS #### [address] Lymphocytes/100 WBC (Bld) 37.6 % Normal . [facility] Comment on above: Performed By: #### C UU, ADDONUAPLUS #### [address] MCH (RBC) [Entitic mass] 29.1 pg Normal 24.7-34.3 [facility] Comment on above: Performed By: #### C UU, ADDONUAPLUS #### [address] MCV (RBC) [Entitic vol] 89.3 fL Normal 80-100 [facility] Comment on above: Performed By: #### C UU, ADDONUAPLUS #### [address] Mean Corpuscular HGB Conc 32.6 g/dL Normal 32.0-35.0 [facility] Comment on above: Performed By: #### C UU, ADDONUAPLUS #### [address] Monocytes (Bld) [#/Vol] 0.8 10*3/uL Normal 0.0-0.8 [facility] Comment on above: Performed By: #### C UU, ADDONUAPLUS #### [address] Monocytes/100 WBC (Bld) 15.8 % Normal . [facility] Comment on above: Performed By: #### C UU, ADDONUAPLUS #### [address] Neutrophils (Bld) [#/Vol] 2.1 10*3/uL Normal 1.8-7.7 [facility] Comment on above: Performed By: #### C UU, ADDONUAPLUS #### [address] Neutrophils/100 WBC (Bld) 42.0 % Normal . [facility] Comment on above: Performed By: #### C UU, ADDONUAPLUS #### [address] NRBC% 0.1 /100{WBC} Normal 0-0.5 [facility] Comment on above: Performed By: #### C UU, ADDONUAPLUS #### [address] Platelet mean volume (Bld) [Entitic vol] 8.1 fL Normal 6.3-10.7 [facility] Comment on above: Performed By: #### C UU, ADDONUAPLUS #### [address] Platelets (Bld) [#/Vol] 288 10*3/uL Normal 150-450 [facility] Comment on above: Performed By: #### C UU, ADDONUAPLUS #### [address] RBC (Bld) [#/Vol] 3.55 10*6/uL Low 3.60-5.00 [facility] Comment on above: Performed By: #### C UU, ADDONUAPLUS #### [address] WBC (Bld) [#/Vol] 4.9 10*3/uL Normal 3.8-11.6 [facility] Comment on above: Performed By: #### C UU, ADDONUAPLUS #### [place] [address] [place] Dipstick and Microscopicon 1 07-22-2023 Appearance (U) Clear Normal Clear [facility] Comment on above: Order Comment: Name Collection Type:: Clean-Voided Midstream Performed By: #### C UU, ADDONUAPLUS #### [address] Bacteria,Urine None Seen Normal None Seen [facility] Comment on above: Order Comment: Name Collection Type:: Clean-Voided Midstream Performed By: #### C UU, ADDONUAPLUS #### [address] Bilirubin,Urine Negative Normal Negative [facility] Comment on above: Order Comment: Name Collection Type:: Clean-Voided Midstream Performed By: #### C UU, ADDONUAPLUS #### [address] Color (U) Light-Yellow Normal Yellow [facility] Comment on above: Order Comment: Name Collection Type:: Clean-Voided Midstream Performed By: #### C UU, ADDONUAPLUS #### [address] Glucose Ql (U) Normal Normal Normal [facility] Comment on above: Order Comment: Name Collection Type:: Clean-Voided Midstream Performed By: #### C UU, ADDONUAPLUS #### [address] Hyaline Casts,Urine 0 [LPF] Normal 0-8 [facility] Comment on above: Order Comment: Name Collection Type:: Clean-Voided Midstream Performed By: #### C UU, ADDONUAPLUS #### [address] Ketones Ql (U) Negative Normal Negative [facility] Comment on above: Order Comment: Name Collection Type:: Clean-Voided Midstream Performed By: #### C UU, ADDONUAPLUS #### [address] Leukocyte esterase Test strip Ql (U) 4+ High Negative [facility] Comment on above: Order Comment: Name Collection Type:: Clean-Voided Midstream Performed By: #### C UU, ADDONUAPLUS #### [place] [address] [place] Mucus,Urine Rare Normal [facility] Comment on above: Order Comment: Name Collection Type:: Clean-Voided Midstream Result Comment: PERF ORMED BY: [place] [address] PATHOLOGIST MARITIME ENGINEER CLAUDIA SKY M.D. Performed By: #### C UU, ADDONUAPLUS #### [address] Nitrite,Urine Negative Normal Negative [facility] Comment on above: Order Comment: Name Collection Type:: Clean-Voided Midstream Performed By: #### C UU, ADDONUAPLUS #### [address] Occult Blood,Urine Trace High Negative [facility] Comment on above: Order Comment: Name Collection Type:: Clean-Voided Midstream Result Comment: PERF ORMED BY: [place] [address] PATHOLOGIST MARITIME ENGINEER CLAUDIA SKY M.D. Performed By: #### C UU, ADDONUAPLUS #### [address] pH (U) 5.5 [pH] Normal 5.0-9.0 [facility] Comment on above: Order Comment: Name Collection Type:: Clean-Voided Midstream Performed By: #### C UU, ADDONUAPLUS #### [place] [address] [place] Protein,Urine Negative Normal Negative [facility] Comment on above: Order Comment: Name Collection Type:: Clean-Voided Midstream Performed By: #### C UU, ADDONUAPLUS #### [address] RBC,Urine 5 [HPF] High 0-4 [facility] Comment on above: Order Comment: Name Collection Type:: Clean-Voided Midstream Performed By: #### C UU, ADDONUAPLUS #### [facility] [address] [place] [address] Specificy [place],Urine 1.017 Normal 1.001-1.03 0 [facility] Comment on above: Order Comment: Name Collection Type:: Clean-Voided Midstream Performed By: #### C UU, ADDONUAPLUS #### [facility] [address] [place] [address] Squamous Epithelial Cell,Urine 1 [HPF] Normal 0-2 [facility] Comment on above: Order Comment: Name Collection Type:: Clean-Voided Midstream Performed By: #### C UU, ADDONUAPLUS #### [address] Urobilinogen,Urine Normal Normal Normal [facility] Comment on above: Order Comment: Name Collection Type:: Clean-Voided Midstream Performed By: #### C UU, ADDONUAPLUS #### [address] WBC CLUMP, Urine Few High None Seen [facility] Comment on above: Order Comment: Name Collection Type:: Clean-Voided Midstream Performed By: #### C UU, ADDONUAPLUS #### [address] WBC,Urine 50 [HPF] High 0-4 [facility] Comment on above: Order Comment: Name Collection Type:: Clean-Voided Midstream Performed By: #### C UU, ADDONUAPLUS #### [address] Leukocyte clumps [Presence] in Urine by AutomatedOrdered By: Trace Laughlin on 05-21-2024 Leukocyte clumps Auto Ql (U) Leukocyte clumps [Presence] in Urine by Automated High None Seen [facility] Mucus [Presence] in Urine by AutomatedOrdered By: Trace Laughlin on 05-21-2024 Mucus Auto Ql (U) Mucus [Presence] in Urine by Automated [facility] Urine Cultureon 05-21-2024 Bacteria identified Cx Nom (U) No Growth 2 Days PERFORMED BY: [place] [address] PATHOLOGIST MARITIME ENGINEER CLAUDIA SKY M.D. Normal [facility] Comment on above: Performed By: #### C UU, HANNA #### [address] Urine cultureOrdered By: Kurt Laughlin on 05-21-2024 Bacteria identified Cx Nom (U) Urine culture [facility] XR hip LT min 2V(w/wo pelvis )*on 05-21-2024 XR hip LT min 2V(w/wo pelvis)* [facility] [place] [address] [place] [address] XRay Report Signed Patient: Deloris Bae MR#: [id number] : 1955 Acct:[id number] Age/Sex: 69 / F ADM Date: 04/29/24 Loc: Room: [address] [place] [address] Type: ADM IN Attending Dr: Trace Laughlin MD Copies to: LEO Montes MD Ordering Provider: Amelie Childress APRN Date of Service: 05/21/24 XR/XR hip LT min 2V(w/wo pelvis)*: fall, left hip pain 2 views left plain film COMPARISON: None HISTORY: Fell. Left hip pain. ACUTE FINDINGS: None DEGENERATIVE CHANGE: Unremarkable SOFT TISSUE FINDINGS: Unremarkable JOINT EFFUSION: None POSTOP CHANGES: Adequate left hip arthroplasty hardware. BONY MINERALIZATION: Adequate XR/XR hip LT min 2V(w/wo pelvis)* IMPRESSION: Uncomplicated left hip arthroplasty. No acute displaced fracture. Impression dictated by: Samir Tucker M.D.05/21/2024 8:47 PM Dictation Location: [place] [address] Transcribed By: [facility] 05/21/242046 Dictated By: Samir Tucker DO 05/21/242045 Signed By: 05/21/242046 Normal [facility] Basic Metabolic Panelon 11-2 Anion gap [Moles/Vol] 9.0 mmol/L Normal 6.0-15.0 [facility] Comment on above: Performed By: #### B MP, CBC #### [address] Calcium [Mass/Vol] 7.9 mg/dL Low 8.6-10.3 [facility] Comment on above: Performed By: #### B MP, CBC #### [address] Chloride [Moles/Vol] 111 mmol/L High 98-107 [facility] Comment on above: Performed By: #### B MP, CBC #### [address] CO2 [Moles/Vol] 25.9 mmol/L Normal 21.0-31.0 [facility] Comment on above: Performed By: #### B MP, CBC #### [address] Creatinine [Mass/Vol] 0.86 mg/dL Normal 0.60-1.20 [facility] Comment on above: Performed By: #### B MP, CBC #### [place] [address] [place] Creatinine Clr Calc Pharmacy 60.63 Normal [facility] Comment on above: Result Comment: PERF ORMED BY: [place] [address] PATHOLOGIST MARITIME ENGINEER CLAUDIA SKY M.D. Performed By: #### B MP, CBC #### [address] GFR/1.73 sq M.predicted MDRD (S/P/Bld) [Vol rate/Area] mL/min/{1.73_m2} Normal [facility] Comment on above: Performed By: #### B MP, CBC #### [address] Glucose [Mass/Vol] 73 mg/dL Normal 70-100 [facility] Comment on above: Result Comment: [place] Glucose Reference Range is dependent on time and content of last meal. Glucose of more than 200 mg/dL in a nonstressed, ambulatory subject supports the diagnosis of Diabetes Mellitus. ADA recommended reference range Performed By: #### B MP, CBC #### [address] Potassium [Moles/Vol] 3.9 mmol/L Normal 3.5-5.1 [facility] Comment on above: Performed By: #### B MP, CBC #### [place] [address] [place] Sodium [Moles/Vol] 142 mmol/L Normal 136-145 [facility] Comment on above: Performed By: #### B MP, CBC #### [address] Urea nitrogen [Mass/Vol] 14 mg/dL Normal 7-25 [facility] Comment on above: Performed By: #### B MP, CBC #### [place] [address] [place] Dipstick and Microscopicon 1 07-11-2023 Appearance (U) Turbid Critically abnormal Clear [facility] Comment on above: Order Comment: Name Collection Type:: Clean-Voided Midstream Performed By: #### C UU, ADDONUAPLUS #### [place] [address] [place] Bacteria,Urine 1+ High None Seen [facility] Comment on above: Order Comment: Name Collection Type:: Clean-Voided Midstream Performed By: #### C UU, ADDONUAPLUS #### [place] [address] [place] Bilirubin,Urine Negative Normal Negative [facility] Comment on above: Order Comment: Name Collection Type:: Clean-Voided Midstream Performed By: #### C UU, ADDONUAPLUS #### [place] [address] [place] Color (U) Yellow Normal Yellow [facility] Comment on above: Order Comment: Name Collection Type:: Clean-Voided Midstream Performed By: #### C UU, ADDONUAPLUS #### [place] [address] [place] Glucose Ql (U) Normal Normal Normal [facility] Comment on above: Order Comment: Name Collection Type:: Clean-Voided Midstream Performed By: #### C UU, ADDONUAPLUS #### [place] [address] [place] Hyaline Casts,Urine None Normal 0-8 [facility] Comment on above: Order Comment: Name Collection Type:: Clean-Voided Midstream Performed By: #### C UU, ADDONUAPLUS #### [address] Ketones Ql (U) Negative Normal Negative [facility] Comment on above: Order Comment: Name Collection Type:: Clean-Voided Midstream Performed By: #### C UU, ADDONUAPLUS #### [address] Leukocyte esterase Test strip Ql (U) 4+ High Negative [facility] Comment on above: Order Comment: Name Collection Type:: Clean-Voided Midstream Performed By: #### C UU, ADDONUAPLUS #### [place] [address] [place] Mucus,Urine 3+ Critically abnormal [facility] Comment on above: Order Comment: Name Collection Type:: Clean-Voided Midstream Result Comment: PERF ORMED BY: [place] [address] PATHOLOGIST MARITIME ENGINEER CLAUDIA SKY M.D. Performed By: #### C UU, ADDONUAPLUS #### [place] [address] [place] Nitrite,Urine Positive High Negative [facility] Comment on above: Order Comment: Name Collection Type:: Clean-Voided Midstream Performed By: #### C UU, ADDONUAPLUS #### [address] Occult Blood,Urine 1+ High Negative [facility] Comment on above: Order Comment: Name Collection Type:: Clean-Voided Midstream Result Comment: PERF ORMED BY: [place] [id number] PATHOLOGIST MARITIME ENGINEER CLAUDIA SKY M.D. Performed By: #### C UU, ADDONUAPLUS #### [address] pH (U) 6.0 [pH] Normal 5.0-9.0 [facility] Comment on above: Order Comment: Name Collection Type:: Clean-Voided Midstream Performed By: #### C UU, ADDONUAPLUS #### [address] Protein (U) [Mass/Vol] 50 mg/dL High Negative [facility] Comment on above: Order Comment: Name Collection Type:: Clean-Voided Midstream Performed By: #### C UU, ADDONUAPLUS #### [address] RBC,Urine 50 [HPF] High 0-4 [facility] Comment on above: Order Comment: Name Collection Type:: Clean-Voided Midstream Performed By: #### C UU, ADDONUAPLUS #### [address] Specificy [place],Urine 1.017 Normal 1.001-1.03 0 [facility] Comment on above: Order Comment: Name Collection Type:: Clean-Voided Midstream Performed By: #### C UU, ADDONUAPLUS #### [address] Urobilinogen,Urine Normal Normal Normal [facility] Comment on above: Order Comment: Name Collection Type:: Clean-Voided Midstream Performed By: #### C UU, ADDONUAPLUS #### [address] WBC CLUMP, Urine Many High None Seen [facility] Comment on above: Order Comment: Name Collection Type:: Clean-Voided Midstream Performed By: #### C UU, ADDONUAPLUS #### [address] WBC,Urine Innumerable High 0-4 [facility] Comment on above: Order Comment: Name Collection Type:: Clean-Voided Midstream Performed By: #### C KASSIE MANCILLAPLUS #### [address] Urine Cultureon 05-11-2024 Bacteria identified Cx Nom (U) ORGANISM: Escherichia coli (O:ESCCOL) [place] Count >100,000 Aerobic SETH Charge (NMIC56) SUSCEPTIBILITY ORGANISM: O:ESCCOL ANTIBIOTIC INTERPRETATION SETH Amikacin S <16 Amoxacillin/K Clavulanate S <8 Ampicillin S <8 Ampicillin/Sulbactam S <4 Aztreonam S <4 Cefazolin S <2 Cefepime S <2 Ceftazidime S <1 Ceftazidime/Avibactam S <4 Ceftolozane/Tazobactam S <2 Ceftriaxone S <1 Cefuroxime S <4 Ciprofloxacin S <0.25 Ertapenem S <0.5 Gentamicin S <2 Levofloxacin S <0.5 Meropenem S <1 Meropenem/Vaborbactam S <2 Nitrofurantoin S <32 Piperacillin/Tazobactam S <8 Tetracycline S <4 Tigecycline S <2 Tobramycin S <2 Trimethoprim/Sulfamethoxaz ole S <0.5 S = SUSCEPTIBLE I = INTERMEDIATE R = RESISTANT BLANK = DATA NOT AVAILABLE, OR DRUG NOT ADVISABLE OR TESTED R* = RESISTANCE DUE TO EXTENDED SPECTRUM BETA-LACTAMASES ESBL = EXTENDED SPECTRUM BETA-LACTAMASE TFG = THYMIDINE-DEPENDENT STRAIN ROB = BETA-LACTAMASE POSITIVE IB = INDUCIBLE BETA-LACTAMASE. APPEARS IN PLACE OF 'S' WITH SPECIES KNOWN TO POSSESS INDUCIBLE BETA-LACTAMASES. POTENTIALLY THEY MAY BECOME RESISTANT TO ALL B-LACTAM DRUGS. PERFORMED BY: [place] [address] PATHOLOGIST MARITIME ENGINEER CLAUDIA Adame [facility] Comment on above: Performed By: #### C SHAYNE MANCILLAONUAPLUS #### [facility] [address] [place], [place] [id number] [facility] Urine cultureOrdered By: Kurt Laughlin on 05-11-2024 Bacteria identified Cx Nom (U) Escherichia coli Abnormal [facility] US venous duplex LE LTon US venous duplex LE LT [facility] [place] [address] [place] [address] Ultrasound Report Signed Patient: Deloris Bae MR#: [id number] : 1955 Acct:[id number] Age/Sex: 68 / F ADM Date: 04/29/24 Loc: Room: [address] [place] [address] Type: ADM IN Attending Dr: Trace Laughlin MD Ordering Provider: Amelie Childress APRN Date of Service: 05/09/24 US/US venous duplex LE LT: swelling Copies to: LEO Montes MD LEFT LOWER EXTREMITY VENOUS DUPLEX INDICATION: Left leg edema. Unilateral left lower extremity venous duplex Doppler study was obtained utilizing B-mode, color- flow and spectral Doppler. FINDINGS: The left common femoral, femoral, and popliteal veins showed adequate compressibility, color-flow and augmentation. The left posterior tibial and peroneal veins were compressible, as well as proximal greater saphenous vein. The contralateral right common femoral vein was compressible with color-flow and augmentation. US/US venous duplex LE LT IMPRESSION: NO EVIDENCE OF DEEP VENOUS THROMBOSIS IN THE LEFT LOWER EXTREMITY. NO SUPERFICIAL THROMBOPHLEBITIS WAS NOTED. Impression dictated by: Canelo Schwartz MD05/10/2024 2:56 PM Dictation Location: [facility] Tech: Liane Bains Transcribed By: BRANDEN 05/10/241455 Dictated By: Canelo Schwartz MD 05/10/241455 Signed By: 05/10/241455 Normal [facility] Basic Metabolic Panelon 04-17 Anion gap [Moles/Vol] 9.4 mmol/L Normal 6.0-15.0 [facility] Comment on above: Performed By: #### B MP, CBC #### [address] Calcium [Mass/Vol] 7.8 mg/dL Low 8.6-10.3 [facility] [facility] Comment on above: Performed By: #### B MP, CBC #### [address] Chloride [Moles/Vol] 109 mmol/L High 98-107 [facility] Comment on above: Performed By: #### B MP, CBC #### [address] CO2 [Moles/Vol] 27.9 mmol/L Normal 21.0-31.0 [facility] Comment on above: Performed By: #### B MP, CBC #### [address] Creatinine [Mass/Vol] 0.87 mg/dL Normal 0.60-1.20 [facility] Comment on above: Performed By: #### B MP, CBC #### [address] Creatinine Clr Calc Pharmacy 58.84 Normal [facility] Comment on above: Result Comment: PERF ORMED BY: [place] [address] PATHOLOGIST MARITIME ENGINEER CLAUDIA SKY M.D. Performed By: #### B MP, CBC #### [address] GFR/1.73 sq M.predicted MDRD (S/P/Bld) [Vol rate/Area] mL/min/{1.73_m2} Normal [facility] Comment on above: Performed By: #### B MP, CBC #### [address] Glucose [Mass/Vol] 81 mg/dL Normal 70-100 [facility] Comment on above: Result Comment: [place] Glucose Reference Range is dependent on time and content of last meal. Glucose of more than 200 mg/dL in a nonstressed, ambulatory subject supports the diagnosis of Diabetes Mellitus. ADA recommended reference range Performed By: #### B MP, CBC #### [address] Potassium [Moles/Vol] 4.3 mmol/L Normal 3.5-5.1 [facility] Comment on above: Performed By: #### B MP, CBC #### [address] Sodium [Moles/Vol] 142 mmol/L Normal 136-145 [facility] Comment on above: Performed By: #### B MP, CBC #### [address] Urea nitrogen [Mass/Vol] 17 mg/dL Normal 7-25 [facility] Comment on above: Performed By: #### B MP, CBC #### [address] Complete Blood Count Auto Di ffon 05-09-2024 Basophils (Bld) [#/Vol] 0.0 10*3/uL Normal 0.0-0.2 [facility] Comment on above: Result Comment: PERF ORMED BY: [place] [address] PATHOLOGIST MARITIME ENGINEER CLAUDIA SKY M.D. Performed By: #### B MP, CBC #### [address] Basophils/100 WBC (Bld) 0.3 % Normal . [facility] Comment on above: Performed By: #### B MP, CBC #### [place] [address] [place] Eosinophils (Bld) [#/Vol] 0.3 10*3/uL Normal 0.0-0.45 [facility] Comment on above: Performed By: #### B MP, CBC #### [address] Eosinophils/100 WBC (Bld) 4.9 % Normal . [facility] Comment on above: Performed By: #### B MP, CBC #### [place] [address] [place] Erythrocyte distribution width (RBC) [Ratio] 14.5 % Normal 11.9-15.3 [facility] Comment on above: Performed By: #### B MP, CBC #### [address] Hematocrit (Bld) [Volume fraction] 31.9 % Low 34.0-46.4 [facility] Comment on above: Performed By: #### B MP, CBC #### [address] Hemoglobin (Bld) [Mass/Vol] 10.3 g/dL Low 11.8-15.4 [facility] Comment on above: Performed By: #### B MP, CBC #### [address] Lymphocytes (Bld) [#/Vol] 1.9 10*3/uL Normal 1.00-4.8 [facility] Comment on above: Performed By: #### B MP, CBC #### [address] Lymphocytes/100 WBC (Bld) 27.7 % Normal . [facility] Comment on above: Performed By: #### B MP, CBC #### [address] MCH (RBC) [Entitic mass] 28.4 pg Normal 24.7-34.3 [facility] Comment on above: Performed By: #### B MP, CBC #### [address] MCV (RBC) [Entitic vol] 88.3 fL Normal 80-100 [facility] Comment on above: Performed By: #### B MP, CBC #### [address] Mean Corpuscular HGB Conc 32.1 g/dL Normal 32.0-35.0 [facility] Comment on above: Performed By: #### B MP, CBC #### [address] Monocytes (Bld) [#/Vol] 1.0 10*3/uL High 0.0-0.8 [facility] Comment on above: Performed By: #### B MP, CBC #### [address] Monocytes/100 WBC (Bld) 15.2 % Normal . [facility] Comment on above: Performed By: #### B MP, CBC #### [address] Neutrophils (Bld) [#/Vol] 3.5 10*3/uL Normal 1.8-7.7 [facility] Comment on above: Performed By: #### B MP, CBC #### [address] Neutrophils/100 WBC (Bld) 51.9 % Normal . [facility] Comment on above: Performed By: #### B MP, CBC #### [address] NRBC% 0.0 /100{WBC} Normal 0-0.5 [facility] Comment on above: Performed By: #### B MP, CBC #### [address] Platelet mean volume (Bld) [Entitic vol] 7.3 fL Normal 6.3-10.7 [facility] Comment on above: Performed By: #### B MP, CBC #### [place] [address] [place] Platelets (Bld) [#/Vol] 535 10*3/uL High 150-450 [facility] Comment on above: Performed By: #### B MP, CBC #### [place] [address] [place] RBC (Bld) [#/Vol] 3.62 10*6/uL Normal 3.60-5.00 [facility] Comment on above: Performed By: #### B MP, CBC #### [address] WBC (Bld) [#/Vol] 6.7 10*3/uL Normal 3.8-11.6 [facility] Comment on above: Performed By: #### B MP, CBC #### [facility] [address] [place] [address] A1C with Estimated Average G tommyn 05-08-2024 Glucose [Mass/Vol] 128 mg/dL Normal [facility] Comment on above: Result Comment: PERF ORMED BY: [place] [address] PATHOLOGIST MARITIME ENGINEER CLAUDIA SKY M.D. Performed By: #### C UU, ADDONUAPLUS #### [address] HbA1c (Bld) [Mass fraction] 6.1 % High 4.3-5.6 [facility] Comment on above: Result Comment: Incr eased risk for diabetes: 5.7 - 6.4 diabetes: >6.4 glycemic control for adults with diabetes: <7.0 Performed By: #### C UU, ADDONUAPLUS #### [address] Blood estimated average gluc ose determination by estimation from glycated hemoglobinOrdered By: Juani Whalen on 05-08-2024 Average glucose Estimated from glycated hemoglobin (Bld) [Mass/Vol] Glucose mean value [Mass/volume] in Blood Estimated from glycated hemoglobin [facility] Hemoglobin A1c/Hemoglobin.to home in BloodOrdered By: Juani Whalen on 05-08-2024 HbA1c (Bld) [Mass fraction] Hemoglobin A1c percentage High 4.3-5.[address] [facility] Comment on above: Increased risk for d iabetes: 5.7 - 6.4diabetes: >6.4glycemic control for adults with diabetes: <7.0 US venous duplex LE on US venous duplex [facility] Main [place] [address] [place] [address] Ultrasound Report Signed Patient: Deloris Bae MR#: [id number] : 1955 Acct:[id number] Age/Sex: 68 / F ADM Date: 04/29/24 Loc: Room: 4E1372-7 Type: ADM IN Attending Dr: Trace Laughlin MD Ordering Provider: Trace Laughlin MD Date of Service: 04/30/24 US/US venous duplex LE LT: pain,spasms r/o DVT Copies to: Trace Laughlin MD LEFT LOWER EXTREMITY VENOUS DUPLEX INDICATION: Left leg pain Unilateral left lower extremity venous duplex Doppler study was obtained utilizing B-mode, color- flow and spectral Doppler. FINDINGS: The left common femoral, femoral, and popliteal veins showed adequate compressibility, color-flow and augmentation. The left posterior tibial and peroneal veins were compressible, as well as proximal greater saphenous vein. The contralateral right common femoral vein was compressible with color-flow and augmentation. US/US venous duplex LE LT IMPRESSION: NO EVIDENCE OF DEEP VENOUS THROMBOSIS IN THE LEFT LOWER EXTREMITY. NO SUPERFICIAL THROMBOPHLEBITIS WAS NOTED. Impression dictated by: Samir Peck M.D.05/04/2024 3:54 PM Dictation Location: [place] [address] Tech: Liane Bains Transcribed By: BRANDEN 05/04/241553 Dictated By: Samir Peck MD 05/04/241553 Signed By: 05/04/241553 Normal [facility] Basic Metabolic Panelon 04-16 Anion gap [Moles/Vol] 13.0 mmol/L Normal 6.0-15.0 Th e [facility] Comment on above: Performed By: #### C KASSIE MANCILLAPLUS #### [facility] [address] [place] [address] [place] Calcium [Mass/Vol] 8.9 mg/dL Normal 8.6-10.3 [facility] Comment on above: Performed By: #### C KASSIE MANCILLAPLUS #### [facility] [address] [place] [id number] [place] Chloride [Moles/Vol] 99 mmol/L Normal 98-107 [facility] Comment on above: Performed By: #### KASSIE KAISERPLUS #### [address] CO2 [Moles/Vol] 25.2 mmol/L Normal 21.0-31.0 [facility] Comment on above: Performed By: #### C UU, ADDONUAPLUS #### [address] Creatinine [Mass/Vol] 1.06 mg/dL Normal 0.60-1.20 [facility] Comment on above: Performed By: #### C UU, ADDONUAPLUS #### [address] Creatinine Clr Calc Pharmacy 48.29 Normal [facility] Comment on above: Result Comment: PERF ORMED BY: [place] [address] PATHOLOGIST MARITIME ENGINEER CLAUDIA SKY M.D. Performed By: #### C UU ADDONUAPLUS #### [address] Estimated GFR 57.221 mL/Min Normal [facility] Comment on above: Performed By: #### C UU ADDONUAPLUS #### [address] Glucose [Mass/Vol] 147 mg/dL High 70-100 [facility] Comment on above: Result Comment: [place] Glucose Reference Range is dependent on time and content of last meal. Glucose of more than 200 mg/dL in a nonstressed, ambulatory subject supports the diagnosis of Diabetes Mellitus. ADA recommended reference range Performed By: #### C UU, ADDONUAPLUS #### [address] Potassium [Moles/Vol] 4.2 mmol/L Normal 3.5-5.1 [facility] Comment on above: Performed By: #### C UU, ADDONUAPLUS #### [address] Sodium [Moles/Vol] 133 mmol/L Low 136-145 [facility] Comment on above: Performed By: #### C LAURENT ADDONUAPLUS #### [facility] [address] Urea nitrogen [Mass/Vol] 41 mg/dL High 01-07 [facility] Comment on above: Performed By: #### C SHAYNE MANCILLAONUAPLUS #### [facility] [address] [place] [address] ECG 12 lead ECGon 05-02-2024 ECG 12 lead ECG [facility] Main [place] [address] [place] [address] Electrocardiograph Report Signed Patient: Deloris Bae MR#: [id number] : 1955 Acct:[id number] Age/Sex: 68 / F ADM Date: 04/29/24 Loc: Room: [address] [place] [address] Type: ADM IN Attending Dr: Trace Laughlin MD Ordering Provider: Trace Laughlin MD Date of Service: 05/02/24 ECG/ECG 12 lead ECG: qt check Copies to: Test Reason : Blood Pressure : */* mmHG Vent. Rate : 98 BPM Atrial Rate : 98 BPM P-R Int : 116 ms QRS Dur : 100 ms QT Int : 350 ms P-R-T Axes : 5 62 29 degrees QTcB Int : 446 ms Normal sinus rhythm Normal ECG When compared with ECG of 12-Aug-2017 09:54, Vent. rate has increased by 33 bpm Confirmed by LYRIC VILLATORO MD ([id number]) on 05/02/2024 12:24:39 PM Referred By: Electronically Signed By: LYRIC VILLATORO MD Transcribed By: MUS Signed By Lyric Villatoro MD 1 07/02/23 1224 Normal [facility] Alanine aminotransferase [En zymatic activity/volume] in Serum or PlasmaOrdered By: Trace Laughlin on 04-30-2024 ALT [Catalytic activity/Vol] Alanine aminotransferase [Enzymatic activity/volume] in Serum or Plasma [facility] Albumin [Mass/volume] in Ser um or Plasma by Bromocresol green (BCG) dye binding methoOrdered By: Trace Laughlin on 04-30-2024 Albumin BCG dye [Mass/Vol] Albumin [Mass/volume] in Serum or Plasma by Bromocresol green (BCG) dye binding metho 3.5-5.7 [facility] Alkaline phosphatase [Enzyma tic activity/volume] in Serum or PlasmaOrdered By: Trace Laughlin on 04-30-2024 ALP [Catalytic activity/Vol] Alkaline phosphatase [Enzymatic activity/volume] in Serum or Plasma 34-104 [facility] Aspartate aminotransferase [ Enzymatic activity/volume] in Serum or PlasmaOrdered By: Trace Laughlin on 04-30-2024 AST [Catalytic activity/Vol] Aspartate aminotransferase [Enzymatic activity/volume] in Serum or Plasma 13-39 [facility] Bilirubin.total [Mass/volume ] in Serum or PlasmaOrdered By: Trace Laughlin on 04-30-2024 Bilirubin [Mass/Vol] Bilirubin.total [Mass/volume] in Serum or Plasma 0.3-1.0 [facility] Comprehensive Metabolic Pane smith 04-30-2024 Albumin [Mass/Vol] 3.8 g/dL Normal 3.5-5.7 [facility] Comment on above: Performed By: #### B MP, CBC #### [address] Albumin/Globulin [Mass ratio] 1.2 {ratio} Normal [facility] Comment on above: Performed By: #### B MP, CBC #### [facility] [address] [place] [id number] [facility] ALP [Catalytic activity/Vol] 43 U/L Normal 34-104 [facility] Comment on above: Performed By: #### B MP, CBC #### [facility] [address] [place] [id number] [place] ALT [Catalytic activity/Vol] 13 U/L Normal 7-52 [facility] Comment on above: Performed By: #### B MP, CBC #### [facility] [address] [place] [id number] [facility] Anion gap [Moles/Vol] 14.3 mmol/L Normal 6.0-15.0 Th e [facility] Comment on above: Performed By: #### B MP, CBC #### [facility] [address] [place] [address] AST [Catalytic activity/Vol] 21 U/L Normal 13-39 [facility] Comment on above: Performed By: #### B MP, CBC #### [address] Bilirubin [Mass/Vol] 0.7 mg/dL Normal 0.3-1.0 [facility] Comment on above: Performed By: #### B MP, CBC #### [address] Calcium [Mass/Vol] 9.0 mg/dL Normal 8.6-10.3 [facility] Comment on above: Performed By: #### B LOVE, CBC #### [address] Chloride [Moles/Vol] 96 mmol/L Low 98-107 [facility] Comment on above: Performed By: #### B LOVE, CBC #### [address] CO2 [Moles/Vol] 25.0 mmol/L Normal 21.0-31.0 [facility] Comment on above: Performed By: #### B LOVE, CBC #### [address] Creatinine [Mass/Vol] 0.82 mg/dL Normal 0.60-1.20 [facility] Comment on above: Performed By: #### B LOVE, CBC #### [address] Creatinine Clr Calc Pharmacy 61.51 Normal [facility] Comment on above: Performed By: #### B MP, CBC #### [address] GFR/1.73 sq M.predicted MDRD (S/P/Bld) [Vol rate/Area] mL/min/{1.73_m2} Normal [facility] Comment on above: Performed By: #### B MP, CBC #### [address] Globulin (S) [Mass/Vol] 3.1 g/dL Normal [facility] Comment on above: Performed By: #### B MP, CBC #### [address] Glucose [Mass/Vol] 132 mg/dL High 70-100 [facility] Comment on above: Result Comment: [facility] Glucose Reference Range is dependent on time and content of last meal. Glucose of more than 200 mg/dL in a nonstressed, ambulatory subject supports the diagnosis of Diabetes Mellitus. ADA recommended reference range Performed By: #### B MP, CBC #### [address] Potassium [Moles/Vol] 4.3 mmol/L Normal 3.5-5.1 [facility] Comment on above: Performed By: #### B MP, CBC #### [address] Protein [Mass/Vol] 6.9 g/dL Normal 6.4-8.9 [facility] Comment on above: Performed By: #### B MP, CBC #### [address] Sodium [Moles/Vol] 131 mmol/L Low 136-145 [facility] Comment on above: Performed By: #### B MP, CBC #### [address] Urea nitrogen [Mass/Vol] 23 mg/dL Normal 7-25 [facility] Comment on above: Performed By: #### B MP, CBC #### [address] Erythrocyte morphology findi ng [Identifier] in BloodOrdered By: Trace Laughlin on 04-30-2024 RBC morphology finding Nom (Bld) RBC morphology Normal [facility] Globulin Calc (S) [Mass/Vol] Ordered By: Trace Laughlin on 04-30-2024 Globulin (S) [Mass/Vol] Serum globulin measurement by calculation (mass/volume) [facility] Platelet adequacy [Presence] in Blood by Light microscopyOrdered By: Trace Laughlin on 11-15-2024 Platelets LM Ql (Bld) Platelet adequacy [Presence] in Blood by Light microscopy Normal [facility] Platelet morphology finding [Identifier] in BloodOrdered By: Trace Laughlin on 04-30-2024 Platelet morphology finding Nom (Bld) Platelet morphology finding [Identifier] in Blood Normal [facility] Prealbuminon 04-30-2024 Prealbumin [Mass/Vol] 10.8 mg/dL Low 17.0-34.0 [facility] Comment on above: Result Comment: PERF ORMED BY: [place] [address] PATHOLOGIST MARITIME ENGINEER CLAUDIA SKY M.D. Performed By: #### B MP, CBC #### [facility] [address] [place] [address] Prealbumin [Mass/volume] in Serum or PlasmaOrdered By: Trace Laughlin on 04-30-2024 Prealbumin [Mass/Vol] Prealbumin [Mass/v olume] in Serum or Plasma Low 17.0-34.0 [facility] Protein [Mass/volume] in Ser um or PlasmaOrdered By: Trace Laughlin on 04-30-2024 Protein [Mass/Vol] Protein [Mass/volume ] in Serum or Plasma 6.4-8.9 [facility] Scan and CBCon 04-30-2024 Basophils (Bld) [#/Vol] 0.0 10*3/uL Normal 0.0-0.2 [facility] Comment on above: Result Comment: PERF ORMED BY: [place] [address] PATHOLOGIST MARITIME ENGINEER CLAUDIA SKY M.D. Performed By: #### B MP, CBC #### [facility] [address] [place] [address] [place] Basophils/100 WBC (Bld) 0.2 % Normal . [facility] Comment on above: Performed By: #### B MP, CBC #### [facility] [address] [place] [address] [place] Eosinophils (Bld) [#/Vol] 0.0 10*3/uL Normal 0.0-0.45 [facility] Comment on above: Performed By: #### B MP, CBC #### [place] [address] [place] Eosinophils/100 WBC (Bld) 0.2 % Normal . [facility] Comment on above: Performed By: #### B MP, CBC #### [address] Erythrocyte distribution width (RBC) [Ratio] 14.2 % Normal 11.9-15.3 [facility] Comment on above: Performed By: #### B MP, CBC #### [address] Hematocrit (Bld) [Volume fraction] 37.3 % Normal 34.0-46.4 [facility] Comment on above: Performed By: #### B MP, CBC #### [address] Hemoglobin (Bld) [Mass/Vol] 12.2 g/dL Normal 11.8-15.4 [facility] Comment on above: Performed By: #### B MP, CBC #### [place] [address] [place] Lymphocytes (Bld) [#/Vol] 1.5 10*3/uL Normal 1.00-4.8 [facility] Comment on above: Performed By: #### B MP, CBC #### [address] Lymphocytes/100 WBC (Bld) 13.0 % Normal . [facility] Comment on above: Performed By: #### B MP, CBC #### [address] MCH (RBC) [Entitic mass] 28.8 pg Normal 24.7-34.3 [facility] Comment on above: Performed By: #### B MP, CBC #### [address] MCV (RBC) [Entitic vol] 88.1 fL Normal 80-100 [facility] Comment on above: Performed By: #### B MP, CBC #### [address] Mean Corpuscular HGB Conc 32.7 g/dL Normal 32.0-35.0 [facility] Comment on above: Performed By: #### B MP, CBC #### [address] Monocytes (Bld) [#/Vol] 2.4 10*3/uL High 0.0-0.8 [facility] Comment on above: Performed By: #### B MP, CBC #### [address] Monocytes/100 WBC (Bld) 20.7 % Normal . [facility] Comment on above: Performed By: #### B MP, CBC #### [address] Neutrophils (Bld) [#/Vol] 7.7 10*3/uL Normal 1.8-7.7 [facility] Comment on above: Performed By: #### B MP, CBC #### [address] Neutrophils/100 WBC (Bld) 65.9 % Normal . [facility] Comment on above: Performed By: #### B MP, CBC #### [address] NRBC% 0.0 /100{WBC} Normal 0-0.5 [facility] Comment on above: Performed By: #### B MP, CBC #### [address] Platelet Estimate Normal Normal Normal [facility] Comment on above: Performed By: #### B MP, CBC #### [address] Platelet mean volume (Bld) [Entitic vol] 8.1 fL Normal 6.3-10.7 [facility] Comment on above: Performed By: #### B MP, CBC #### [address] Platelet Morphology Normal Normal Normal [facility] Comment on above: Result Comment: PERF ORMED BY: [place] [address] PATHOLOGIST MARITIME ENGINEER CLAUDIA SKY M.D. Performed By: #### B MP, CBC #### [place] [address] [place] Platelets (Bld) [#/Vol] 312 10*3/uL Normal 150-450 [facility] Comment on above: Performed By: #### B MP, CBC #### [address] RBC (Bld) [#/Vol] 4.23 10*6/uL Normal 3.60-5.00 [facility] Comment on above: Performed By: #### B MP, CBC #### [address] RBC morphology finding Nom (Bld) Normal Normal Normal [facility] Comment on above: Performed By: #### B MP, CBC #### [place] [address] [place] WBC (Bld) [#/Vol] 11.7 10*3/uL High 3.8-11.6 [facility] Comment on above: Performed By: #### B MP, CBC #### [place] [address] [place] Serum or plasma albumin/glob ulin mass ratioOrdered By: Trace Laughlin on 04-30-2024 Albumin/Globulin [Mass ratio] Serum or plasma albumin/globulin mass ratio [facility] BASIC METABOLIC PANLon 04-29 Anion gap [Moles/Vol] 11 mmol/L Normal 5-15 [facility] Comment on above: Performed By: #### C BCA, BMP ####[facility] ([id number] [facility], [address], [place] [address] Calcium [Mass/Vol] 9.6 mg/dL Normal 8.5-10.5 [facility] Comment on above: Performed By: #### C BCA, BMP ####[facility] ([id number] [address], [place] [address] Chloride [Moles/Vol] 98 mmol/L Normal 98-[address] [facility] Comment on above: Performed By: #### C BCA, BMP ####[facility] ([id number] [address], [place] [address] CO2 [Moles/Vol] 26 mmol/L Normal 22-32 [facility] Comment on above: Performed By: #### C BCA, BMP ####[facility] ([id number])[address] [address], [place] [address] Creatinine [Mass/Vol] 0.71 mg/dL Normal 0.40-1.00 [facility] Comment on above: Result Comment: METH OD TRACEABLE TO IDMS STANDARD Performed By: #### C BCA, BMP ####[facility] ([id number] [address], [place] [address] eGFR (CKD-EPI) NON-RACE DEPENDENT >90 Normal >59 [facility] Comment on above: Result Comment: Reported eGFR is based on the CKD-EPI 2020 equation that does not use a race coefficient. Performed By: #### C BCA, BMP ####[facility] ([id number] [address], [place] [address] Glucose [Mass/Vol] 135 mg/dL High 65-99 [facility] Comment on above: Performed By: #### C BCA, BMP ####[facility] ([id number] [address], [place] [address] Potassium [Moles/Vol] 4.3 mmol/L Normal 3.5-5.0 [facility] Comment on above: Performed By: #### C BCA, BMP ####[facility] ([id number])[address], [place] [address] Sodium [Moles/Vol] 135 mmol/L Normal 134-146 [facility] Comment on above: Performed By: #### C MINA, BMP ####[facility] ([id number])[address], [place] [address] Urea nitrogen [Mass/Vol] 21 mg/dL Normal 5-27 [facility] Comment on above: Performed By: #### C MINA, BMP ####[facility] ([id number])[address], [address], [place] [address] CBC AND AUTO DIFFon 04-29-20 24 ABSOLUTE BASOPHIL 0.0 X10E9/L Normal 0.0-0.2 [facility] Comment on above: Performed By: #### C MINA, BMP ####[facility] ([id number])[address], [address], [place] [address] ABSOLUTE NEUTROPHIL 6.2 X10E9/L Normal 1.5-6.[address] [facility] Comment on above: Performed By: #### C MINA, BMP ####[facility] ([id number])[address], [address], [place] [address] Basophils/100 WBC (Bld) 0.3 % Normal [facility] Comment on above: Performed By: #### C MINA, BMP ####[facility] ([id number])[address] [address], [place] [address] Eosinophils (Bld) [#/Vol] 0.0 10*3/uL Normal 0.0-0.4 [facility] Comment on above: Performed By: #### C MINA, BMP ####[facility] ([id number])[address], [address], [place] [address] Eosinophils/100 WBC (Bld) 0.5 % Normal [facility] Comment on above: Performed By: #### C MINA, BMP ####[facility] ([id number])[address], [address] [place] [address] Erythrocyte distribution width (RBC) [Ratio] 15.0 % Normal 11.5-15.0 [facility] Comment on above: Performed By: #### C BCA, BMP ####[facility] ([id number])[address], [address] [place] [address] Hematocrit (Bld) [Volume fraction] 39.3 % Normal 35-47 [facility] Comment on above: Performed By: #### C BCA, BMP ####[facility] ([id number])[address], [address], [place] [address] Hemoglobin (Bld) [Mass/Vol] 13.2 g/dL Normal 11.7-15.5 [facility] Comment on above: Performed By: #### C MINA, BMP ####[facility] ([id number])[address], [address], [place] [address] Lymphocytes (Bld) [#/Vol] 1.4 10*3/uL Normal 1.0-3.5 [facility] Comment on above: Performed By: #### C BCA, BMP ####[facility] ([id number])[address], [address], [place] [address] Lymphocytes/100 WBC (Bld) 14.9 % Normal [facility] Comment on above: Performed By: #### C BCA, BMP ####[facility] ([id number])[address], [address] [place] [address] MCH (RBC) [Entitic mass] 29.7 pg Normal 27-34 [facility] Comment on above: Performed By: #### C BCA, BMP ####[facility] ([id number])[address], [address], [place] [address] MCHC (RBC) [Mass/Vol] 33.6 g/dL Normal 32-36 [facility] Comment on above: Performed By: #### C BCA, BMP ####[facility] ([id number])[address], [address], [place] [address] MCV (RBC) [Entitic vol] 88 fL Normal 80-100 [facility] Comment on above: Performed By: #### C BCA, BMP ####[facility] ([id number])[address], [address] [place] [address] Monocytes (Bld) [#/Vol] 1.5 10*3/uL High 0-0.9 [facility] Comment on above: Performed By: #### C BCA, BMP ####[facility] ([id number])[address] [place] [address] Monocytes/100 WBC (Bld) 16.5 % Normal [facility] Comment on above: Performed By: #### C BCA, BMP ####[facility] ([id number])[address], [address] [place] [address] Neutrophils/100 WBC (Bld) 67.8 % Normal [facility] Comment on above: Performed By: #### C BCA, BMP ####[facility] ([id number])[address], [address], [place] [address] Platelet mean volume (Bld) [Entitic vol] 8.6 fL Normal 7-12 [facility] Comment on above: Performed By: #### C BCA, BMP ####[facility] ([id number])[address], [address], [place] [address] Platelets (Bld) [#/Vol] 305 10*3/uL Normal 150-450 [facility] Comment on above: Performed By: #### C BCA, BMP ####[facility] ([id number])[address], [address] [address] RBC COUNT 4.45 X10E12/L Normal 3.80-5.20 [facility] Comment on above: Performed By: #### C BCA, BMP ####[facility] ([id number])[address], [address], [place] [address] WBC (Bld) [#/Vol] 9.2 10*3/uL Normal 4.0-11.0 [facility] Comment on above: Performed By: #### C BCA, BMP ####[facility] ([id number])[address], [address], [place] [address] BASIC METABOLIC PANLon 04-28 Anion gap [Moles/Vol] 9 mmol/L Normal 5-15 [facility] Comment on above: Performed By: #### B MP, CBCA ####[facility] ([id number])[address], [address] [place] [address] Calcium [Mass/Vol] 9.3 mg/dL Normal 8.5-10.5 [facility] Comment on above: Performed By: #### B MP, CBCA ####[facility] ([id number])[address], [address], [place] [address] Chloride [Moles/Vol] 100 mmol/L Normal 98-[address] [facility] Comment on above: Performed By: #### B MP, CBCA ####[facility] ([id number])[address], [address] [place] [address] CO2 [Moles/Vol] 27 mmol/L Normal 22-32 [facility] Comment on above: Performed By: #### B MP, CBCA ####[facility] ([id number])[address], [address], [place] [address] Creatinine [Mass/Vol] 0.89 mg/dL Normal 0.40-1.00 [facility] Comment on above: Result Comment: METH OD TRACEABLE TO IDMS STANDARD Performed By: #### B NAEL ALEMANA ####[facility] ([id number])[address] [address] GFR/1.73 sq M.predicted among non-blacks MDRD (S/P/Bld) [Vol rate/Area] 71 mL/min/{1.73_m2} Normal >59 [facility] Comment on above: Result Comment: Reported eGFR is based on the CKD-EPI 2020 equation that does not use a race coefficient. Performed By: #### B JERSEY ALEMAN ####[facility] ([id number])[address] [address] [place] [address] Glucose [Mass/Vol] 117 mg/dL High 65-99 [facility] Comment on above: Performed By: #### B LOVE CBCA ####[facility] ([id number])[address] [address] Potassium [Moles/Vol] 3.9 mmol/L Normal 3.5-5.0 [facility] Comment on above: Performed By: #### Charmaine ALEMAN CBCA ####[facility] ([id number])[address] [address] Sodium [Moles/Vol] 136 mmol/L Normal 134-146 [facility] Comment on above: Performed By: #### Charmaine ALEMAN CBCA ####[facility] ([id number])[address] [address] Urea nitrogen [Mass/Vol] 19 mg/dL Normal 5-27 [facility] Comment on above: Performed By: #### Charmaine ALEMAN CBCA ####[facility] ([id number])[address] [address] CBC AND AUTO DIFFon 04-28-20 24 ABSOLUTE BASOPHIL 0.0 X10E9/L Normal 0.0-0.2 [facility] Comment on above: Performed By: #### B MP, CBCA ####[facility] ([id number])[address], [address], [place] [address] ABSOLUTE NEUTROPHIL 4.9 X10E9/L Normal 1.5-6.[address] [facility] Comment on above: Performed By: #### B MP, CBCA ####[facility] ([id number])[address] [address], [place] [address] Basophils/100 WBC (Bld) 0.2 % Normal [facility] Comment on above: Performed By: #### B MP, CBCA ####[facility] ([id number])[address] [address], [place] [address] Eosinophils (Bld) [#/Vol] 0.1 10*3/uL Normal 0.0-0.4 [facility] Comment on above: Performed By: #### B MP, CBCA ####[facility] ([id number])[address] [address] [place] [address] Eosinophils/100 WBC (Bld) 1.7 % Normal [facility] Comment on above: Performed By: #### B MP, CBCA ####[facility] ([id number])[address] [address], [place] [address] Erythrocyte distribution width (RBC) [Ratio] 14.7 % Normal 11.5-15.0 [facility] Comment on above: Performed By: #### B MP, CBCA ####[facility] ([id number])[address] [address] [place] [address], [place] [address] Hematocrit (Bld) [Volume fraction] 40.0 % Normal 35-47 [facility] Comment on above: Performed By: #### B MP, CBCA ####[facility] ([id number])[address] [place] [address] Hemoglobin (Bld) [Mass/Vol] 13.4 g/dL Normal 11.7-15.5 [facility] Comment on above: Performed By: #### B MP, CBCA ####[facility] ([id number])[address], [address] [place] [address] Lymphocytes (Bld) [#/Vol] 1.5 10*3/uL Normal 1.0-3.5 [facility] Comment on above: Performed By: #### B LOVE, CBCA ####[facility] ([id number])[address], [address], [place] [address] Lymphocytes/100 WBC (Bld) 19.7 % Normal [facility] Comment on above: Performed By: #### B LOVE, CBCA ####[facility] ([id number])[address], [address], [place] [address] MCH (RBC) [Entitic mass] 29.8 pg Normal 27-34 [facility] Comment on above: Performed By: #### B LOVE, CBCA ####[facility] ([id number])[address] [address] [place] [address] MCHC (RBC) [Mass/Vol] 33.6 g/dL Normal 32-36 [facility] Comment on above: Performed By: #### B MP, CBCA ####[facility] ([id number])[address] [address], [place] [address] MCV (RBC) [Entitic vol] 89 fL Normal 80-100 [facility] Comment on above: Performed By: #### B MP, CBCA ####[facility] ([id number])[address] [address] [place] [address] Monocytes (Bld) [#/Vol] 1.1 10*3/uL High 0-0.9 [facility] Comment on above: Performed By: #### B MP, CBCA ####[facility] ([id number])[address], [address], [place] [address] Monocytes/100 WBC (Bld) 14.7 % Normal [facility] Comment on above: Performed By: #### B MP, CBCA ####[facility] ([id number])[address], [address], [place] [address] Neutrophils/100 WBC (Bld) 63.7 % Normal [facility] Comment on above: Performed By: #### B MP, CBCA ####[facility] ([id number])[address], [address], [place] [address] Platelet mean volume (Bld) [Entitic vol] 8.0 fL Normal 7-12 [facility] Comment on above: Performed By: #### B MP, CBCA ####[facility] ([id number])[address], [address] [place] [address] Platelets (Bld) [#/Vol] 262 10*3/uL Normal 150-450 [facility] Comment on above: Performed By: #### B MP, CBCA ####[facility] ([id number])[address], [address], [place] [address] RBC COUNT 4.51 X10E12/L Normal 3.80-5.20 [facility] Comment on above: Performed By: #### B MP, CBCA ####[facility] ([id number])[address], [place] [address] WBC (Bld) [#/Vol] 7.8 10*3/uL Normal 4.0-11.0 [facility] Comment on above: Performed By: #### B MP, CBCA ####[facility] ([id number])[address], [place] [address] BASIC METABOLIC PANLon 04-26 Anion gap [Moles/Vol] 13 mmol/L Normal 5-15 [facility] Comment on above: Performed By: #### B MP ####[facility] ([id number])[address] [address], [place] [address] Calcium [Mass/Vol] 9.7 mg/dL Normal 8.5-10.5 [facility] Comment on above: Performed By: #### B MP ####[facility] ([id number])[address] [address] Chloride [Moles/Vol] 104 mmol/L Normal 98-[address] [facility] Comment on above: Performed By: #### B MP ####[facility] ([id number])[address] [address] CO2 [Moles/Vol] 24 mmol/L Normal 22-32 [facility] Comment on above: Performed By: #### B MP ####[facility] ([id number])[address] [address] Creatinine [Mass/Vol] 0.83 mg/dL Normal 0.40-1.00 [facility] Comment on above: Result Comment: METH OD TRACEABLE TO IDMS STANDARD Performed By: #### B MP ####[facility] ([id number])[address] [address] GFR/1.73 sq M.predicted among non-blacks MDRD (S/P/Bld) [Vol rate/Area] 77 mL/min/{1.73_m2} Normal >59 [facility] Comment on above: Result Comment: Reported eGFR is based on the CKD-EPI 2020 equation that does not use a race coefficient. Performed By: #### B MP ####[facility] ([id number])[address] [address] Glucose [Mass/Vol] 95 mg/dL Normal 65-99 [facility] Comment on above: Performed By: #### B MP ####[facility] ([id number])[address], [place] [address] Potassium [Moles/Vol] 4.8 mmol/L Normal 3.5-5.0 [facility] Comment on above: Result Comment: SPEC IMEN HEMOLYZED, RESULTS INCREASED MODERATELY HEMOLYZED Performed By: #### B MP ####[facility] ([id number])[address], [address], [place] [address] Sodium [Moles/Vol] 141 mmol/L Normal 134-146 [facility] Comment on above: Performed By: #### B MP ####[facility] ([id number])[address], [address] [place] [address] Urea nitrogen [Mass/Vol] 15 mg/dL Normal 5-27 [facility] Comment on above: Performed By: #### B MP ####[facility] ([id number])[address], [address] [address] MR BRAIN WO CONTon MR BRAIN WO CONT MR BRAIN WO CONT MR BRAIN WO CONT 04/25/2024 2:10 PM INDICATION: Neuro deficit, acute, stroke suspected COMPARISON: CT perfusion 04/24/2024, CTA 04/24/2024 TECHNIQUE: Multiplanar multisequence MR images of the brain were obtained without intravenous contrast. FINDINGS: BRAIN: Area of predominantly cortical diffusion restriction and increased FLAIR signal of the right high medial frontal cortex, slightly sitting to the right perirolandic region. Cephalization and surrounding increased FLAIR signal of the left parietal lobe. Susceptibility signal and area of encephalomalacia likely due to remote blood products. Additional mild burden of nonspecific focal areas of increased FLAIR signal white matter. Due to chronic small vessel ischemic change. VENTRICLES: Normal ventricular size. VASCULATURE: Decreased left internal carotid artery flow void likely relates to near-complete occlusion seen on prior CT. ORBITS: Unremarkable. PARANASAL SINUSES: Mild paranasal sinus mucosal thickening. TEMPORAL BONE: Well-aerated middle ears and visualized mastoid air cells. SOFT TISSUES: The visualized head and neck soft tissues are unremarkable. OSSEOUS STRUCTURES: Degenerative changes of the visualized upper cervical spine is at least moderate spinal canal stenosis. IMPRESSION: 1. Acute to early subacute cortical ischemia of the high medial right frontal and perirolandic regions. 2. Redemonstration of diminished flow within the intracranial left internal carotid artery. 3. Additional findings as described. THIS REPORT CONTAINS A SIGNIFICANT RESULT AND/OR RECOMMENDATION, WHICH REQUIRES THE ATTENTION OF THE LICENSED CAREGIVER RESPONSIBLE FOR THIS PATIENT. THEREFORE, I SPECIFICALLY DESIGNATED THIS REPORT TO BE TELEPHONED BY THE RADIOLOGY DEPARTMENT. FINDINGS WERE INSTRUCTED TO BE CALLED TO THE CLINICAL SERVICE ON 04/26/2024 AT 4:39 PM. Approved by Resident Yovani Simeon DO on 04/25/2024 5:35 PM Ryan Grover DO have personally reviewed the image(s) and agree with and/or edited the report Finalized by Ryan Chase DO on 04/26/2024 4:39 AM Normal [facility] BASIC METABOLIC PANLon 04-25 Anion gap [Moles/Vol] 8 mmol/L Normal 5-15 [facility] Comment on above: Performed By: #### 2 4331-1SMITHA CBCA #### [facility] ([id number]) [address], [address] [place] [address] Calcium [Mass/Vol] 8.6 mg/dL Normal 8.5-10.5 [facility] Comment on above: Performed By: #### 2 4331-1, SMITHA, CBCA #### [facility] ([id number]) [address], [address] [place] [address] Chloride [Moles/Vol] 109 mmol/L Normal 98-[address] [facility] Comment on above: Performed By: #### 2 4331-1, SMITHA, CBCA #### [facility] ([id number]) [address], [address] [place] [address] CO2 [Moles/Vol] 26 mmol/L Normal 22-32 [facility] Comment on above: Performed By: #### 2 4331-1SMITHA, CBCA #### [facility] ([id number]) [address], [address] [place] [address] Creatinine [Mass/Vol] 0.93 mg/dL Normal 0.40-1.00 [facility] Comment on above: Result Comment: METH OD TRACEABLE TO IDMS STANDARD Performed By: #### 2 4331-1SMITHA CBCA #### [facility] ([id number]) [address], [address] [address] GFR/1.73 sq M.predicted among non-blacks MDRD (S/P/Bld) [Vol rate/Area] 67 mL/min/{1.73_m2} Normal >59 [facility] Comment on above: Result Comment: Reported eGFR is based on the CKD-EPI 2020 equation that does not use a race coefficient. Performed By: #### 2 4331-1SMITHA, CBCA #### [facility] ([id number]) [address], [address] [place] [address] Glucose [Mass/Vol] 94 mg/dL Normal 65-99 [facility] Comment on above: Performed By: #### 2 4331-1SMITHA, CBCA #### [facility] ([id number]) [address], [address] [place] [address] Potassium [Moles/Vol] 3.9 mmol/L Normal 3.5-5.0 [facility] Comment on above: Performed By: #### 2 4331-1, SMITHA, CBCA #### [facility] ([id number]) [address], [address] [place] [address] Sodium [Moles/Vol] 143 mmol/L Normal 134-146 [facility] Comment on above: Performed By: #### 2 4331-1, SMITHA, CBCA #### [facility] ([id number]) [address], [address] [place] [address] Urea nitrogen [Mass/Vol] 18 mg/dL Normal 5-27 [facility] Comment on above: Performed By: #### 2 4331-1, BMP, CBCA #### [facility] ([id number]) [address], [facility] [address] [place] [address] CBC AND AUTO DIFFon 11-20 24 ABSOLUTE BASOPHIL 0.0 X10E9/L Normal 0.0-0.2 [facility] Comment on above: Performed By: #### 2 4331-1, BMP, CBCA #### [facility] ([id number]) [address], [address] [place] [address] ABSOLUTE NEUTROPHIL 4.7 X10E9/L Normal 1.5-6.[address] [facility] Comment on above: Performed By: #### 2 4331-1, BMP, CBCA #### [facility] ([id number]) [address], [address] [place] [address] Basophils/100 WBC (Bld) 0.2 % Normal [facility] Comment on above: Performed By: #### 2 4331-1, BMP, CBCA #### [facility] ([id number]) [address], [address] [place] [address] Eosinophils (Bld) [#/Vol] 0.2 10*3/uL Normal 0.0-0.4 [facility] Comment on above: Performed By: #### 2 4331-1, BMP, CBCA #### [facility] ([id number]) [address], [address] [address] Eosinophils/100 WBC (Bld) 2.8 % Normal [facility] Comment on above: Performed By: #### 2 4331-1, BMP, CBCA #### [facility] ([id number]) [address] [address] Erythrocyte distribution width (RBC) [Ratio] 14.6 % Normal 11.5-15.0 [facility] Comment on above: Performed By: #### 2 4331-1, BMP, CBCA #### [facility] ([id number]) [address] [address] Hematocrit (Bld) [Volume fraction] 35.5 % Normal 35-47 [facility] Comment on above: Performed By: #### 2 4331-1, BMP, CBCA #### [facility] ([id number]) [address] [address] Hemoglobin (Bld) [Mass/Vol] 11.7 g/dL Normal 11.7-15.5 [facility] Comment on above: Performed By: #### 2 4331-1, BMP, CBCA #### [facility] ([id number]) [address] [address] Lymphocytes (Bld) [#/Vol] 1.9 10*3/uL Normal 1.0-3.5 [facility] Comment on above: Performed By: #### 2 4331-1, BMP, CBCA #### [facility] ([id number]) [address] [address] Lymphocytes/100 WBC (Bld) 24.2 % Normal [facility] Comment on above: Performed By: #### 2 4331-1, BMP, CBCA #### [facility] ([id number]) [address] [address] MCH (RBC) [Entitic mass] 29.4 pg Normal 27-34 [facility] Comment on above: Performed By: #### 2 4331-1, BMP, CBCA #### [facility] ([id number]) [address] [place] [address] MCHC (RBC) [Mass/Vol] 33.1 g/dL Normal 32-36 [facility] Comment on above: Performed By: #### 2 4331-1, BMP, CBCA #### [facility] ([id number]) [address], [address] [place] [address] MCV (RBC) [Entitic vol] 89 fL Normal 80-100 [facility] Comment on above: Performed By: #### 2 4331-1, BMP, CBCA #### [facility] ([id number]) [address], [facility] [address] [place] [address] Monocytes (Bld) [#/Vol] 1.0 10*3/uL High 0-0.9 [facility] Comment on above: Performed By: #### 2 4331-1, BMP, CBCA #### [facility] ([id number]) [address], [address] [place] [address] Monocytes/100 WBC (Bld) 12.3 % Normal [facility] Comment on above: Performed By: #### 2 4331-1, BMP, CBCA #### [facility] ([id number]) [address], [address] [place] [address] Neutrophils/100 WBC (Bld) 60.5 % Normal [facility] Comment on above: Performed By: #### 2 4331-1, BMP, CBCA #### [facility] ([id number]) [address], [address] [place] [address] Platelet mean volume (Bld) [Entitic vol] 9.0 fL Normal 7-12 [facility] Comment on above: Performed By: #### 2 4331-1, BMP, CBCA #### [facility] ([id number]) [address], [address] [place] [address] Platelets (Bld) [#/Vol] 230 10*3/uL Normal 150-450 [facility] Comment on above: Performed By: #### 2 4331-1, BMP, CBCA #### [facility] ([id number]) [address], [address] [place] [address] RBC COUNT 3.99 X10E12/L Normal 3.80-5.20 [facility] Comment on above: Performed By: #### 2 4331-1, BMP, CBCA #### [facility] ([id number]) [address], [address] [place] [address] WBC (Bld) [#/Vol] 7.8 10*3/uL Normal 4.0-11.0 [facility] Comment on above: Performed By: #### 2 4331-1, BMP, CBCA #### [facility] ([id number]) [address], [facility] [address] [place] [address] CT Head or Brain w/o Contras ton 04-25-2024 CT Head or Brain w/o Contrast Exam Date/Time: 04/24/2024 15:17 EST Reason for Exam: Neuro deficit, acute, stroke suspected;Stroke Report IMPRESSION: NO ACUTE INTRACRANIAL HEMORRHAGE. EXAMINATION: CT of the brain without contrast HISTORY: Slurred speech. Left arm weakness. COMPARISON: None available TECHNIQUE: Multiple axial images were obtained of the brain from the skull base through the vertex. Multiplanar reformats were obtained. FINDINGS: Prominence of the sulci and ventricles compatible with mild generalized parenchymal volume loss. Ware-white matter differentiation is preserved. Areas of bilateral supratentorial white matter hypoattenuation are nonspecific but most likely due to chronic small vessel ischemic changes in a patient of this age. Left parietal lobe encephalomalacia. No acute hemorrhage or abnormal extra-axial fluid collection. Basal cisterns are patent. No mass effect or midline shift. The visualized paranasal sinuses and mastoid air cells are clear. Calvarium is intact. All CT scans at this facility use dose modulation, iterative reconstruction, and/or weight based dosing when appropriate to reduce radiation dose to as low as reasonably achievable. Ordering Provider: Trevor Biswas FINAL REPORT Dictated: 04/25/2024 7:33 am Tamia Donald DO Signed (Electronic Signature): 04/25/2024 7:33 am Signed by: Tamia Donald DO Transcribed by: PEGGY Technologist: UBALDO Normal [facility] CTA Headon 04-25-2024 CTA Head Exam Date/Time: 04/24/2024 16:19 EST Reason for Exam: NEURO DEFICIT, ACUTE, STROKE SUSPECTED;Other (please specify) Report Please see CTA neck report. Ordering Provider: Trevor Biswas FINAL REPORT Dictated: 04/25/2024 8:11 am Tamia Donald DO Signed (Electronic Signature): 04/25/2024 8:11 am Signed by: Tamia Donald DO Transcribed by: PEGGY Technologist: MARVA Technical Comments GFR (mL/min/1/73m2) 61 Contrast: Isovue 370 Contrast amount in ml's: 100 Normal [facility] CTA Neckon 04-25-2024 CTA Neck Exam Date/Time: 04/24/2024 16:19 EST Reason for Exam: NEURO DEFICIT, ACUTE, STROKE SUSPECTED;Other (please specify) Report IMPRESSION: CTA HEAD: GREATER THAN 70% STENOSIS OF THE LEFT PETROUS AND CAVERNOUS INTERNAL CAROTID ARTERY WITH OCCLUSION OF THE LEFT INTERNAL CAROTID ARTERY AT THE SUPRACLINOID LEVEL. RECONSTITUTION OF FLOW AT THE LEFT INTERNAL CAROTID ARTERY TERMINUS. FOCAL STENOSIS OF A RIGHT M2 BRANCH WITHIN THE SYLVIAN FISSURE WHERE THERE IS A TINY FOCAL CALCIFICATION. THE DEGREE OF STENOSIS CANNOT BE ACCURATELY ASSESS SECONDARY TO THE SMALL SIZE OF THIS VESSEL AND THE CALCIFICATION HOWEVER BLOOD FLOW DISTAL TO THIS STENOSIS IS MAINTAINED. CTA NECK: GRADUAL NARROWING OF THE LEFT INTERNAL CAROTID ARTERY RESULTING IN APPROXIMATELY 60% STENOSIS OF THE DISTAL CERVICAL INTERNAL CAROTID ARTERY. Exam: CT angiography of the head CT angiography of the neck History: Left-sided weakness Technique: Axial images were obtained from the thoracic inlet through the [place] of Mast after administration of intravenous contrast. Multiplanar reformatted images and multiplanar maximum intensity projection images were obtained, as were postprocessed 3-D volume rendered images. Luminal narrowings are estimated using NASCET criteria. Comparison: None available Findings: CTA neck: Normal appearance of the aortic arch and is branches. The bilateral common carotid arteries are of normal course and caliber. There is gradual narrowing of the left internal carotid artery resulting in approximately 60% stenosis of the distal cervical internal carotid artery. Approximately 20% stenosis of the proximal right internal carotid artery. The bilateral external carotid arteries are of normal course and caliber. Report The vertebral arteries are normal in course and caliber. No dissection, high grade stenosis or aneurysm. CTA head: There is greater than 70% stenosis of the left petrous and cavernous internal carotid artery with occlusion of the left internal carotid artery at the supraclinoid level. There is reconstitution of flow at the left internal carotid artery terminus. The right internal carotid artery through the skull base is patent. The left middle cerebral artery through the trifurcation and opercular branches is patent. There is focal stenosis of a right M2 branch within the sylvian fissure where there is a tiny focal calcification. The degree of stenosis cannot be accurately assess secondary to the small size of this vessel and the calcification however blood flow distal to this stenosis is maintained. The basilar artery and posterior cerebellar arteries are patent. origin of the right posterior cerebral artery. The left posterior communicating artery is patent. The bilateral anterior cerebral arteries and anterior communicating artery are patent. No aneurysm or high-grade stenosis. Dural venous sinuses are patent. 8 mm hypodense nodule of the right lobe of the thyroid gland. All CT scans at this facility use dose modulation, iterative reconstruction, and/or weight based dosing when appropriate to reduce radiation dose to as low as reasonably achievable. Ordering Provider: Trevor Biswas FINAL REPORT Dictated: 04/25/2024 8:11 am Tamia Donald DO Signed (Electronic Signature): 04/25/2024 8:11 am Signed by: Tamia Donald DO Transcribed by: PEGGY Technologist: MARVA Technical Comments GFR (mL/min/1/73m2) 61 Contrast: Isovue 370 Contrast amount in ml's: 100 Normal [facility] Glucose Glucometer (dC) [M ass/Vol]on 04-25-2024 Glucose [Mass/Vol] 113 mg/dL High 65-99 [facility] Glucose [Mass/Vol] 90 mg/dL Normal 65-99 [facility] Glucose [Mass/Vol] 108 mg/dL High 65-99 [facility] Lipid 1996 panelon 4 Cholesterol [Mass/Vol] 138 mg/dL Low 150-200 [facility] Comment on above: Performed By: #### 2 4331-1SMITHA CBCA #### [facility] ([id number]) [address], [address] [place] [address] Cholesterol in HDL [Mass/Vol] 51 mg/dL Normal >39 [facility] Comment on above: Result Comment: HDL <40 mg/dL - High Risk HDL > or = 40mg/dL- Desirable HDL >60 mg/dL - Negative Risk Performed By: #### 2 4331-1SMITHA CBCA #### [facility] ([id number]) [address], [address] [place] [address] Cholesterol in LDL [Mass/Vol] 51 mg/dL Normal <130 [facility] Comment on above: Result Comment: LDL <100 mg/dL - Desirable LDL >160 mg/dL - High Risk Performed By: #### 2 4331-1, JERSEY BONE #### [facility] ([id number]) [address], [address] [place] [address] Cholesterol in VLDL [Mass/Vol] 36 mg/dL High 0-30 [facility] Comment on above: Performed By: #### 2 4331-1SMITHA CBCA #### [facility] ([id number]) [address], [address] [place] [address] CHOLESTEROL:HDL 2.7 Normal 1.0-5.0 [facility] Comment on above: Performed By: #### 2 4331-1, SMITHA CBCStephanie #### [facility] ([id number]) [address], [address] [place] [address] Triglyceride [Mass/Vol] 178 mg/dL High 27-150 [facility] Comment on above: Performed By: #### 2 4331-1, BMP, CBCA #### [facility] ([id number]) [address], [address] [place] [address] XR Chest Single Viewon 04-25 XR Chest Single View Exam Date/Time: 04/24/2024 16:13 EST Reason for Exam: Chest pain Report IMPRESSION: NO RADIOGRAPHIC EVIDENCE OF ACUTE INTRATHORACIC PROCESS. EXAM: XR Chest Single View History: Chest pain Technique: Portable AP view of the chest. Comparison: None available Findings: The cardiomediastinal silhouette is within normal limits. No pneumothorax, pleural effusion, or consolidation. No acute osseous abnormality. Ordering Provider: Trevor Bsiwas FINAL REPORT Dictated: 04/25/2024 7:14 am Tamia Donald DO Signed (Electronic Signature): 04/25/2024 7:14 am Signed by: Tamia Donald DO Transcribed by: PEGGY Technologist: KENNEY Technical Comments Radiation Dose: Ka,r in mGy = na DAP = na Normal [facility] ABO/Rhon 04-24-2024 ABO/Rh Positive Invalid Interpretation Code [facility] Comment on above: Performed By: #### 2 [id number] #### [facility] [address] [place] [address] ABO/Rh History Checkon 04-24 ABO/Rh History Check Patient discharged prior Normal [facility] Comment on above: Performed By: #### 1 [id number] #### [facility] [address] [place] [address] ABSCon 04-24-2024 ABSC Gel Interp Negative Normal [facility] Comment on above: Performed By: #### 1 [id number] #### [facility] [address] [place] [address] BASIC METABOLIC PANLon 04-24 Anion gap [Moles/Vol] 9 mmol/L Normal 5-15 [facility] Comment on above: Performed By: #### C MINA HA1C, BMP #### [facility] ([id number]) [address] [address] Calcium [Mass/Vol] 8.8 mg/dL Normal 8.5-10.5 [facility] Comment on above: Performed By: #### C MINA HA1C, BMP #### [facility] ([id number]) [address] [address] Chloride [Moles/Vol] 106 mmol/L Normal 98-[address] [facility] Comment on above: Performed By: #### C MINA HA1C, BMP #### [facility] ([id number]) [address] [address] CO2 [Moles/Vol] 26 mmol/L Normal 22-32 [facility] Comment on above: Performed By: #### C MINA HA1C, BMP #### [facility] ([id number]) [address] [address] Creatinine [Mass/Vol] 0.93 mg/dL Normal 0.40-1.00 [facility] Comment on above: Result Comment: METH OD TRACEABLE TO IDMS STANDARD Performed By: #### C MINA HA1C, BMP #### [facility] ([id number]) [address] [address] GFR/1.73 sq M.predicted among non-blacks MDRD (S/P/Bld) [Vol rate/Area] 67 mL/min/{1.73_m2} Normal >59 [facility] Comment on above: Result Comment: Reported eGFR is based on the CKD-EPI 2020 equation that does not use a race coefficient. Performed By: #### C BCA, HA1C, BMP #### [facility] ([id number]) [address] [place] [address] Glucose [Mass/Vol] 71 mg/dL Normal 65-99 [facility] Comment on above: Performed By: #### C REKHA ENRIQUEZ, BMP #### [facility] ([id number]) [address], [address] [place] [address] Potassium [Moles/Vol] 4.0 mmol/L Normal 3.5-5.0 [facility] Comment on above: Performed By: #### C REKHA ENRIQUEZ, BMP #### [facility] ([id number]) [address], [address] [place] [address] Sodium [Moles/Vol] 141 mmol/L Normal 134-146 [facility] Comment on above: Performed By: #### C REKHA ENRIQUEZ, BMP #### [facility] ([id number]) [address], [address] [place] [address] Urea nitrogen [Mass/Vol] 15 mg/dL Normal 5-27 [facility] Comment on above: Performed By: #### C REKHA ENRIQUEZ, BMP #### [facility] ([id number]) [address], [facility] [address] [place] [address] BLOOD BANKOrdered By: Reina Gómez on 04-24-2024 ABO/Rh Interp Positive Invalid Interpretation Code [facility] BB Subsection ABSC Gel Interp Negative (04/24/24 3:16 PM) Normal [facility] BB Subsection Blood Bank ID#on 04-24-2024 BBID# [id number] Invalid Interpretation Code [facility] Comment on above: Performed By: #### 1 [id number] #### [facility] [address] [place] [address] CBC AND AUTO DIFFon 04-24-20 ABSOLUTE BASOPHIL 0.0 X10E9/L Normal 0.0-0.2 [facility] Comment on above: Performed By: #### C REKHA ENRIQUEZ, BMP #### [facility] ([id number]) [address], [address] [place] [address] ABSOLUTE NEUTROPHIL 4.8 X10E9/L Normal 1.5-6.[address] [facility] Comment on above: Performed By: #### REKHA Martin BCA, BMP #### [facility] ([id number]) [address], [address] [place] [address] Basophils/100 WBC (Bld) 0.3 % Normal [facility] Comment on above: Performed By: #### REKHA Martin BCA, BMP #### [facility] ([id number]) [address], [address] [place] [address] Eosinophils (Bld) [#/Vol] 0.2 10*3/uL Normal 0.0-0.4 [facility] Comment on above: Performed By: #### REKHA Martin BCA, BMP #### [facility] ([id number]) [address], [address] [place] [address] Eosinophils/100 WBC (Bld) 2.9 % Normal [facility] Comment on above: Performed By: #### REKHA Martin BCA BMP #### [facility] ([id number]) [address], [address] [place] [address] Erythrocyte distribution width (RBC) [Ratio] 14.6 % Normal 11.5-15.0 [facility] Comment on above: Performed By: #### REKHA Martin BCA, BMP #### [facility] ([id number]) [address], [address] [place] [address] Hematocrit (Bld) [Volume fraction] 37.6 % Normal 35-47 [facility] Comment on above: Performed By: #### REKHA Martin BCA, BMP #### [facility] ([id number]) [address], [address] [place] [address] Hemoglobin (Bld) [Mass/Vol] 12.6 g/dL Normal 11.7-15.5 [facility] Comment on above: Performed By: #### C REKHA ENRIQUEZ, BMP #### [facility] ([id number]) [address], [address] [place] [address] Lymphocytes (Bld) [#/Vol] 2.2 10*3/uL Normal 1.0-3.5 [facility] Comment on above: Performed By: #### C REKHA ENRIQUEZ, BMP #### [facility] ([id number]) [address], [address] [place] [address] Lymphocytes/100 WBC (Bld) 26.9 % Normal [facility] Comment on above: Performed By: #### C REKHA ENRIQUEZ, BMP #### [facility] ([id number]) [address], [address] [place] [address] MCH (RBC) [Entitic mass] 29.8 pg Normal 27-34 [facility] Comment on above: Performed By: #### C REKHA ENRIQUEZ, BMP #### [facility] ([id number]) [address], [address] [place] [address] MCHC (RBC) [Mass/Vol] 33.6 g/dL Normal 32-36 [facility] Comment on above: Performed By: #### C REKHA ENRIQUEZ, BMP #### [facility] ([id number]) [address], [address] [place] [address] MCV (RBC) [Entitic vol] 89 fL Normal 80-100 [facility] Comment on above: Performed By: #### C REKHA ENRIQUEZ, BMP #### [facility] ([id number]) [address] [place] [address] Monocytes (Bld) [#/Vol] 0.9 10*3/uL Normal 0-0.9 [facility] Comment on above: Performed By: #### C REKHA ENRIQUEZ, BMP #### [facility] ([id number]) [address], [address] [place] [address] Monocytes/100 WBC (Bld) 11.1 % Normal [facility] Comment on above: Performed By: #### REKHA Martin BCA, BMP #### [facility] ([id number]) [address], [address] [place] [address] Neutrophils/100 WBC (Bld) 58.8 % Normal [facility] Comment on above: Performed By: #### REKHA Martin BCA, BMP #### [facility] ([id number]) [address], [address] [place] [address] Platelet mean volume (Bld) [Entitic vol] 8.8 fL Normal 7-12 [facility] Comment on above: Performed By: #### REKHA Martin BCA, BMP #### [facility] ([id number]) [address], [address] [place] [address] Platelets (Bld) [#/Vol] 257 10*3/uL Normal 150-450 [facility] Comment on above: Performed By: #### REKHA Martin BCA, BMP #### [facility] ([id number]) [address] [place] [address] RBC COUNT 4.23 X10E12/L Normal 3.80-5.20 [facility] Comment on above: Performed By: #### REKHA Martin BCA, BMP #### [facility] ([id number]) [address], [address] [place] [address] WBC (Bld) [#/Vol] 8.2 10*3/uL Normal 4.0-11.0 [facility] Comment on above: Performed By: #### REKHA Martin BCA, BMP #### [facility] ([id number]) [address], [address] [place] [address] CBC w/ Auto Diffon 4 Basophils/100 WBC (Bld) 0.7 % Normal 0.0-2.0 [facility] Comment on above: Performed By: #### 2 [id number] #### [facility] [address] [place] [address] Basophils/Leukocytes Auto (Bld) [Pure # fraction] 0.1 E9/L Normal 0.0-0.2 [facility] Comment on above: Performed By: #### 2 [id number] #### [facility] [address] [place] [address] Eosinophils (Bld) [#/Vol] 0.2 E9/L Normal 0.0-0.5 [facility] Comment on above: Performed By: #### 2 [id number] #### [facility] [address] [place] [address] Eosinophils/100 WBC (Bld) 2.6 % Normal 0.0-8.0 [facility] Comment on above: Performed By: #### 2 [id number] #### [facility] [address] [place] [address] Erythrocyte distribution width (RBC) [Ratio] 14.5 % High 10.9-14.2 [facility] Comment on above: Performed By: #### 2 [id number] #### [facility] [address] [place] [address] Hematocrit (Bld) [Volume fraction] 40.3 % Normal 34.0-46.0 [facility] Comment on above: Performed By: #### 2 [id number] #### [facility] [address] [place] [address] Hemoglobin (Bld) [Mass/Vol] 13.4 g/dL Normal 12.0-16.0 [facility] Comment on above: Performed By: #### 2 [id number] #### [facility] [address] [place] [address] Lymphocytes (Bld) [#/Vol] 1.7 E9/L Normal 1.0-4.0 [facility] Comment on above: Performed By: #### 2 [id number] #### [facility] [address] [place] [address] Lymphocytes/100 WBC (Bld) 21.7 % Normal 14.0-50.0 [facility] Comment on above: Performed By: #### 2 101801 #### [facility] [address] [place] [address] MCH (RBC) [Entitic mass] 29.3 pg Normal 27.0-34.0 [facility] Comment on above: Performed By: #### 2 [id number] #### [facility] [address] [place] [address] MCHC (RBC) [Mass/Vol] 33.2 g/dL Normal 31.4-36.0 [facility] Comment on above: Performed By: #### 2 [id number] #### [facility] [address] [place] [address] MCV (RBC) [Entitic vol] 88.4 fL Normal 80.0-100.0 [facility] Comment on above: Performed By: #### 2 955215 #### [facility] [address] [place] [address] Monocytes (Bld) [#/Vol] 0.9 E9/L Normal 0.2-1.0 [facility] Comment on above: Performed By: #### 2 317115 #### [facility] [address] [place] [address] Neutrophils (Bld) [#/Vol] 5.1 E9/L Normal 2.0-7.5 [facility] Comment on above: Performed By: #### 2 [id number] #### [facility] [address] [place] [address] Neutrophils/100 WBC (Bld) 64.0 % Normal 36.0-75.0 [facility] Comment on above: Performed By: #### 2 [id number] #### [facility] [address] [place] [address] Platelet 281.0 E9/L Normal 150.0-500. 0 [facility] Comment on above: Performed By: #### 2 [id number] #### [facility] [address] [place] [address] Platelet mean volume (Bld) [Entitic vol] 8.0 fL Normal 6.4-10.8 [facility] Comment on above: Performed By: #### 2 186454 #### [facility] [address] [place] [address] RBC (Bld) [#/Vol] 4.6 E12/L Normal 4.3-5.9 [facility] Comment on above: Performed By: #### 2 [id number] #### [facility] [address] [place] [address] WBC corrected for nucl RBC Auto (Bld) [#/Vol] 8.0 E9/L Normal 4.0-11.0 [facility] Comment on above: Performed By: #### 2 [id number] #### [facility] [address] [place] [address] CHEMISTRYOrdered By: SYSTEM SYSTEM on 04-24-2024 Albumin [Mass/Vol] 4.3 g/dL Normal 3.3 - 5.0 gm/dL Rem[facility] Albumin/Globulin [Mass ratio] 1.7 {ratio} Normal 1.1 - 2.2 [facility] ALP [Catalytic activity/Vol] 69 [iU]/d Normal 21 - 98 Int._Unit/ L [facility] ALT No additional P-5'-P [Catalytic activity/Vol] 28 [iU]/d Normal 6 - 46 Int._Unit/ L [facility] Anion gap [Moles/Vol] 10 mmol/L Normal 6 - 16 mEq/L [facility] AST [Catalytic activity/Vol] 29 [iU]/d Normal 5 - 43 Int._Unit/ L [facility] Bilirubin [Mass/Vol] 0.3 mg/dL Normal 0.0 - 1 .1 mg/dL [facility] Calcium [Mass/Vol] 9.3 mg/dL Normal 8.9 - 11. 1 mg/dL [facility] Chloride [Moles/Vol] 108 mmol/L Normal 101 - 1 11 mmol/L [facility] CO2 [Moles/Vol] 27 mmol/L Normal 21 - 31 mmol/L [facility] Creatinine [Mass/Vol] 1.0 mg/dL Normal 0.5 - 1.3 mg/dL [facility] eGFR 61 mL/min/1.73 m2 Normal >=59mL/min /1.73 m2 [facility] Globulin (S) [Mass/Vol] 2.5 g/dL Normal 1.4 - 4.0 gm/dL [facility] Glucose [Mass/Vol] 103 mg/dL Normal 55 - 199 mg/dL [facility] Potassium [Moles/Vol] 4.3 mmol/L Normal 3.5 - 5.3 mmol/L [facility] Protein [Mass/Vol] 6.8 g/dL Normal 6.0 - 7.8 gm/dL [facility] Sodium [Moles/Vol] 141 mmol/L Normal 135 - 145 mmol/L [facility] Troponin HS 5.30 pg/mL Low 10.10 - 27.10 pg/mL [facility] Comment on above: Interpretive Data: T he 95% CI (Confidence Interval) PPV (Positive Predictive Value) for myocardial infarction in females is 38 pg/mL, in males 51 pg/mL. The results should be used in conjunction with clinical conditions of myocardial infarction. (Access High Sensitivity Troponin I Instructions For Use, [place], January 2018) Urea nitrogen [Mass/Vol] 19 mg/dL Normal 5 - 21 mg/dL [facility] Urea nitrogen/Creatinine [Mass ratio] 19 mg/mg Normal 10 - 20 [facility] CMPon 04-24-2024 Albumin [Mass/Vol] 4.3 g/dL Normal 3.3-5.0 [facility] Comment on above: Performed By: #### 2 [id number] #### [facility] [address] [place] [address] Albumin/Globulin (S) [Mass conc ratio] 1.7 Normal 1.1-2.2 [facility] Comment on above: Performed By: #### 2 [id number] #### [facility] [address] [place] [address] ALP [Catalytic activity/Vol] 69 Int._Unit/L Normal 21-98 [facility] Comment on above: Performed By: #### 2 [id number] #### [facility] [address] [place] [address] ALT No additional P-5'-P [Catalytic activity/Vol] 28 Int._Unit/L Normal 6-46 [facility] Comment on above: Performed By: #### 2 [id number] #### [facility] [address] [place] [address] Anion gap [Moles/Vol] 10 mmol/L Normal 6-16 [facility] Comment on above: Performed By: #### 2 [id number] #### [facility] [address] [place] [address] AST [Catalytic activity/Vol] 29 Int._Unit/L Normal 5-43 [facility] Comment on above: Performed By: #### 2 [id number] #### [facility] [address] [place] [address] Bilirubin [Mass/Vol] 0.3 mg/dL Normal 0.0-1.1 [facility] Comment on above: Performed By: #### 2 [id number] #### [facility] [address] [place] [address] Calcium [Mass/Vol] 9.3 mg/dL Normal 8.9-11.1 [facility] Comment on above: Performed By: #### 2 [id number] #### [facility] [address] [place] [address] Chloride [Moles/Vol] 108 mmol/L Normal 101-111 [facility] Comment on above: Performed By: #### 2 [id number] #### [facility] [address] [place] [address] CO2 [Moles/Vol] 27 mmol/L Normal 21-31 [facility] Comment on above: Performed By: #### 2 [id number] #### [facility] [address] [place] [address] Creatinine [Mass/Vol] 1.0 mg/dL Normal 0.5-1.3 [facility] Comment on above: Performed By: #### 2 [id number] #### [facility] [address] [place] [address] Globulin (S) [Mass/Vol] 2.5 g/dL Normal 1.4-4.0 [facility] Comment on above: Performed By: #### 2 [id number] #### [facility] [address] [place] [address] Glucose [Mass/Vol] 103 mg/dL Normal 55-199 [facility] Comment on above: Performed By: #### 2 [id number] #### [facility] [address] [place] [address] Potassium [Moles/Vol] 4.3 mmol/L Normal 3.5-5.3 [facility] Comment on above: Performed By: #### 2 [id number] #### [facility] [address] [place] [address] Protein [Mass/Vol] 6.8 g/dL Normal 6.0-7.8 [facility] Comment on above: Performed By: #### 2 [id number] #### [facility] [address] [place] [address] Sodium [Moles/Vol] 141 mmol/L Normal 135-145 [facility] Comment on above: Performed By: #### 2 [id number] #### [facility] [address] [place] [address] Urea nitrogen [Mass/Vol] 19 mg/dL Normal 5-21 [facility] Comment on above: Performed By: #### 2 [id number] #### [facility] [address] [place] [address] Urea nitrogen/Creatinine [Mass ratio] 19 No Units Normal 10-20 [facility] Comment on above: Performed By: #### 2 [id number] #### [facility] [address] [place] [address] COAGULATIONOrdered By: Francine Barboza on 04-24-2024 aPTT Coag (PPP) [Time] 35.6 s Normal 25.1 - 36.5 second(s) [facility] Comment on above: Interpretive Data: P arameter 15 days - 4 weeks 1 - 5 months 6 - 11 months 1 - 5 years 6 - 10 years 11 - 17 years PTT Mean: 35.4 (27.6-45.6) Mean: 33.5 (24.8-40.7) Mean: 32.4 (25.1-40.7) Mean: 31.6 (24.0-39.2) Mean: 31.6 (26.9-38.7) Mean: 31.0 (24.6-38.4) Pediatric Reference ranges were obtained from a study by alyssia Anglin prepared from 1437 samples obtained at 7 different centers using the same coagulation reagent and instrumentation as [facility]. Currently there are no coagulation studies available worldwide for children to 14 days, and no normal ranges. Heparin therapeutic range (represented by Anti-Factor Xa activity of 0.2 - 0.4 U/mL) corresponds to PTT of 56.6 - 109.0 sec. INR Coag (PPP) [Relative time] 0.96 {INR} Invalid Interpretation Code [facility] Comment on above: Interpretive Data: I NR results are specifically intended to assess patients stabilized on long-term Anticoagulation therapy suggested INR s Less Intensive Anticoagulation 2.0 3.0 Conventional Range 3.0 4.5 PT Coag (PPP) [Time] 10.8 s Normal 9.4 - 1 2.5 second(s) [facility] Comment on above: Interpretive Data: 1 5 days - 4 weeks 1 - 5 months 6 -11 months 1-5 years 6-10 years 11 -17 years Mean: 11.2 (9.5-12.6) Mean: 11.0 (9.7-12.8) Mean: 11.0 (9.8-13.0) Mean: 11.3 (9.9-13.4) Mean: 11.7 (10.0-14.6) Mean: 11.8 (10.0 - 14.1) Pediatric Reference ranges were obtained from a study by alyssia Anglin prepared from 1437 samples obtained at 7 different centers using the same coagulation reagent and instrumentation as [facility]. Currently there are no coagulation studies available worldwide for children to 14 days, and no normal ranges. CT BRAIN WO CONTon CT BRAIN WO CONT CT BRAIN WO CONT CLINICAL INFORMATION: Neuro deficit, acute, stroke suspected TECHNIQUE: CT BRAIN WO CONT CT images of the brain were obtained. 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 No obvious acute loss of ware-white differentiation or sulcal effacement. No acute hemorrhage is seen. No mass or midline shift. Few dural based calcifications appreciated. Sinuses are clear. No calvarial abnormality. IMPRESSION: No acute intracranial findings. All CT scans at this facility use dose modulation, iterative reconstruction, and/or weight based dosing when appropriate to reduce radiation dose to as low as reasonably achievable. Finalized by Roverto Sánchez MD on 04/24/2024 6:12 PM [facility] CT CEREBRAL PERF ANALYSISon 04-24-[address] CEREBRAL PERF ANALYSIS CT BRAIN PERFUSION IMAGING: HISTORY: Stroke TECHNIQUE: Axial CT brain perfusion was performed during intravenous administration of 40 mL Omnipaque 350. Postprocessing with RAPID and/or [employer] Via software was used. Specifically, maps of cerebral blood flow, cerebral blood volume, mean transit time and Tmax were calculated by using the perfusion source data. COMPARISON: Noncontrast CT from earlier today. Mild to moderate patient motion. Arterial input function [place] selected: Right MCA Venous outflow function [place]: [place] of sinuses FINDINGS: CT Perfusion Characteristics: CBF<30% volume: 4 mL Tmax>6.0s volume: 30 mL Mismatch volume: 26 mL Mismatch ratio: 7.5 Tmax>4.0s volume: 140 Comment: Low density within the affected left superior parietal distribution more resembles subacute infarct. Acute on chronic difficult to differentiate. Additional prolonged Tmax superior right frontal lobe without evidence of core infarct. IMPRESSION: * Suspected subacute insult superior left parietal lobe and additional small focus of prolonged Tmax superior right frontal lobe without associated core infarct. Note: Perfusion-CT was required in this patient because it: - assesses brain perfusion, - allows to screen for brain ischemia even before morphological damage can be seen, - can confirm or rule out the presence of a large, hemispheric, ischemic stroke and/or look at the presence of at risk tissue. All CT scans at this facility use dose modulation, iterative reconstruction, and/or weight based dosing when appropriate to reduce radiation dose to as low as reasonably achievable. Finalized by Teja Kennedy DO on 04/24/2024 6:35 PM Normal [facility] ED Clinical Summaryon 2023 ED Clinical Summary ED Clinical Summary [place] [id number] ED Clinical Summary Person Information Name: DELORIS BAE Alix/[facility] Age: 68 Years : 1955 Sex: Female Language: Ivorian PCP: TAMIA FRANCE MD Marital Status: Visit Id: Visit Reason: Focal motor weakness; Potential stroke; poss. stroke Speciality: Acuity: 1 Enc Type: Emergency Med Service: Emergency Arrival: 04/24/2024 15:07:09 Discharge: 04/24/2024 17:21:25 LOS: 000 02:14 Checkin: 04/24/2024 15:07:09 Checkout: 04/24/2024 17:21:25 Dispo Type: Short-Term Hosp as IP EVENTS: Event Name Event Status Request Date/Time Start Date/Time Complete Date/Time Arrive Complete 04/24/2024 15:07:09 04/24/2024 15:07:09 04/24/2024 15:07:09 Document Home Meds Request 04/24/2024 15:07:09 Triage Complete 04/24/2024 15:07:09 04/24/2024 15:19:19 04/24/2024 15:19:19 Dr Exam Complete 04/24/2024 15:07:51 04/24/2024 15:07:51 04/24/2024 15:07:51 Registration Complete 04/24/2024 15:07:51 04/24/2024 15:07:54 04/24/2024 15:51:25 Bed Assign Complete 04/24/2024 15:07:54 04/24/2024 15:07:54 04/24/2024 15:07:54 RN Exam Complete 04/24/2024 15:07:54 04/24/2024 15:27:02 04/24/2024 15:27:02 EKG Complete 04/24/2024 15:08:32 04/24/2024 15:47:32 Pending Labs Request 04/24/2024 15:08:32 Blood Collect Request 04/24/2024 15:08:32 Lab Complete 04/24/2024 15:08:32 04/24/2024 15:42:14 Patient Care Request 04/24/2024 15:08:32 CT Complete 04/24/2024 15:08:32 04/24/2024 15:15:47 04/24/2024 15:17:32 X-Ray Complete 04/24/2024 15:08:32 04/24/2024 15:45:10 04/24/2024 16:13:57 RT Request 04/24/2024 15:08:32 Pending Labs Complete 04/24/2024 15:17:31 04/24/2024 15:17:31 04/24/2024 15:42:14 Lab Complete 04/24/2024 15:17:31 04/24/2024 15:17:31 04/24/2024 15:42:14 Patient Care Request 04/24/2024 15:22:13 Patient Care Request 04/24/2024 15:25:58 Patient Care Request 04/24/2024 15:25:59 Pending Labs Request 04/24/2024 15:25:59 Lab Request 04/24/2024 15:25:59 Blood Collect Request 04/24/2024 15:25:59 Pending Labs Complete 04/24/2024 15:26:00 04/24/2024 16:00:01 Meds Admin Complete 04/24/2024 15:26:39 04/24/2024 15:38:48 NPO Request 04/24/2024 15:27:02 Fall Risk Request 04/24/2024 15:27:03 RR Stroke Request 04/24/2024 15:27:03 CT Complete 04/24/2024 15:45:23 04/24/2024 15:49:36 04/24/2024 16:19:33 Reg Complete Request 04/24/2024 15:51:25 Reg Bed Request Complete 04/24/2024 15:51:25 04/24/2024 15:51:25 04/24/2024 15:51:25 Wet Read Complete 04/24/2024 16:13:57 04/24/2024 16:16:37 04/24/2024 16:16:37 Patient Care Request 04/24/2024 16:36:04 Transfer Complete 04/24/2024 16:36:04 04/24/2024 17:21:57 04/24/2024 17:21:57 Discharge Complete 04/24/2024 17:21:57 04/24/2024 17:21:57 04/24/2024 17:21:57 ADDRESS: [id number] [facility] [id number] PHYS DOC NOTES: MEDICAL INFORMATION: Prescriptions Given: PATIENT EDUCATION INFORMATION: Instructions: Follow up: DIAGNOSIS: Stroke Normal [facility] ED Note-Physicianon 04-24-20 ED Note-Physician ED Note-Physician Basic Information Time Seen: Trevor Biswas DO 04/24/2024 15:07 Chief Complaint was watching the [employer] game and said she felt funny and couldn't move her left carlotta History of Present Illness 68 female presents emergency department by EMS with strokelike symptoms. Last known well and symptom onset at 1430. Patient states that she was feeling funny could not feel or move the left side of her body. She is never had this before denies any associated pain no headache no chest pain no abdominal pain with this. No cough fevers no shortness of breath. Patient denies any prior history of stroke. No history of diabetes blood sugar checked by EMS was noncontributory prior to arrival. She is not on any blood thinners no anticoagulation she does take daily baby aspirin. No other aggravating or relieving factors no other associated symptoms no other prior treatments or complaints. Family: Reviewed and noncontributory Social: lives at home Review of systems negative unless otherwise specified in the HPI. Physical Exam Vitals & Measurements T: 36.2 ???C(Oral) HR: 78(Peripheral) RR: 20 BP: 176/78 SpO2: 99% HT: 162.56 cm WT: 71.4 kg BMI: 27.02 General: The patient appears well and in no apparent distress. Patient is resting comfortably on cart. Skin: Warm, dry, no pallor noted. Head: Normocephalic, atraumatic Neck: No JVD Eye: PERRLA, EOMI ENT: Moist mucus membranes Cardiovascular: Regular rate normal peripheral perfusion Respiratory: No respiratory distress no accessory muscle use no obvious audible wheezing Chest Wall: no deformity Musculoskeletal: No external signs of injury no deformity no edema GI: Soft no obvious distention. No rebound or rigidity. No guarding. No tenderness. Neurological: A&O. Please see stroke scale score for full details with patient does have severe weakness and near paralysis to the left arm and left leg she has some left-sided facial droop as well as severe loss of sensation on the left side of the body. Mild dysarthria mild aphasia. Psychiatric: Cooperative and appropriate Medical Decision Making CT read by stat read as no acute pathology. Patient does meet criteria for tenecteplase and this is ordered here in the emergency department. Patient is agreeable to this and does consent to this. She is treated here in the emergency department after no contraindications. Case was discussed with Neurologist from [facility] in [place] and CT angiogram was performed. They did find large vessel occlusion therefore did arrange for transfer by [facility] to [place] for possible intervention. This was discussed with family and they are updated and supportive of this disposition as well. Critical care time 30 minutes exclusive from separate billable procedures Assessment/Plan Stroke (I63.9: Cerebral infarction, unspecified) Orders: tenecteplase, 18 mg = 3.6 mL, Injection, IV Push, Once, Stop date 04/24/24 15:26:00 EST, STAT, Start date 04/24/24 15:26:00 EST, Rapid IV Push over 5 seconds, 04/24/24 15:26:00 EST ABO/Rh ABO/Rh History Check Antibody Screen Bedrest Below the Knee Intermittent Pneumatic Compression Device Blood Bank ID# Cardiac Monitoring CBC w/ Auto Diff Communication Order Communication Order Communication Order Physician to Nursing Communication Order Physician to Nursing Communication Order Physician to Nursing Communication Order Physician to Nursing Communication Order Physician to Nursing Communication Order Physician to Nursing Communication Order Physician to Nursing Comprehensive Metabolic Panel Continuous Pulse Oximetry CT Head or Brain w/o Contrast CTA Head CTA Neck CVA/TIA Inclusion/Exclusion Criteria CVA/TIA Inclusion/Exclusion Criteria Dysphagia Screen ECG 12 Lead Adult eGFR Focused Assessment - Neurological Focused Assessment - Neurological Focused Assessment - Neurological NIH Stroke Scale Notify Provider Vital Signs Obtain consent Oxygen Protocol PT & PTT PTT PTT PTT Rapid Response Form Routine Capillary Glucose POC Saline Lock Insert Stroke Quality Measures Stroke Quality Measures Troponin 0 Hr. UA with Cult Rflx Urinary Catheter Insertion Vital Signs Vital Signs Vital Signs Vital Signs XR Chest Single View Medications Administered Given tenecteplase 50 mg IV Inj, 18 mg, IV Push Disposition Plan Discharge Prescription List Prescriptions No active prescription medications Follow-up No qualifying data available Problem List/Past Medical History Ongoing No qualifying data Historical No qualifying data Medications Inpatient No active inpatient medications Home No active home medications Allergies No Known Allergies Social History Alcohol - Low Risk, 04/24/2024 Substance Abuse - Denies Substance Abuse, 04/24/2024 Tobacco - No Risk, 04/24/2024 Lab Results WBC: 8 E9/L (04/24/24 15:16:00) RBC: 4.6 E12/L (04/24/24 15:16:00) HGB: 13.4 gm/dL (04/24/24 (more content not included)... Normal [facility] Comment on above: Result Comment: Elec tronically Signed By: Trevor Biswas DO\.br\Date and Time Signed: 04/24/24 16:35 EST ED Patient Education Noteon 04-24-2024 ED Patient Education Note ED Patient Education Note Normal [facility] ED Patient Summaryon 024 ED Patient Summary ED Patient Summary [place] [id number] Patient Discharge Instructions Person Information Name: LUCIANO BAEN Елена Age: 68 Years Arrival Date: 04/24/2024 15:07:09 Discharge Diagnosis: Stroke Primary Care Physician: TAMIA FRANEC MD Provider Information Primary Provider: Trevor Biswas DO [employer] Order Filler:None The exam and treatment you received in the Emergency Department were for an urgent problem and are not intended as complete care. It is important that you follow up with a doctor, nurse practitioner, or physician???s assistant federal public defender for ongoing care. If your symptoms become worse or you do not improve as expected and you are unable to reach your usual health care provider, you should return to the Emergency Department. We are available 24 hours a day. DELORIS BAE has been given the following list of patient education materials, prescriptions and follow-up instructions: Follow-up Instructions: In the event that this physician does not participate in your insurance network, please consult with your insurance company to find a nearby participating provider. Patient Education Materials: A MESSAGE TO ALL PATIENTS REGARDING OPIOIDS PRESCRIPTION OPIOIDS: WHAT YOU NEED TO KNOW Prescription opioids can be used to help relieve [id number] pain and are often prescribed following a surgery or injury, or for certain health conditions. These medications can be an important part of the treatment but also come with serious risks. It is important to work with your healthcare provider to make sure you are getting the safest, most effective care. WHAT ARE THE RISKS AND SIDE EFFECTS OF OPIOID USE? Prescription opioids carry serious risks of addiction and overdose, especially with prolonged use. An opioid overdose, often marked by slowed breathing, can cause sudden . The use of prescription opioids can have a number of side effects as well, even when taken as directed: ??? Tolerance???meaning you might need to take more of the medication for the same pain relief ??? Physical dependence???meaning you have symptoms of withdrawal when a medication is stopped ??? Increased sensitivity to pain ??? Constipation ??? Nausea, vomiting, and dry mouth ??? Sleepiness and dizziness ??? Confusion ??? Depression ??? Low levels of testosterone that can result in lower sex drive, energy, and strength ??? Itching and sweating RISKS ARE GREATER WITH: ??? History of drug misuse, substance use disorder, or overdose ??? Mental health conditions (such as depression or anxiety) ??? Sleep apnea ??? Older age (65 years and older) ??? Avoid alcohol while taking prescription opioids. Also, unless specifically advised by your health care provider, medications to avoid include: ??? Benzodiazepines (such as Xanax or Valium) ??? Muscle relaxants (such as Soma or Flexeril) ??? Hypnotics (such as Ambien or Lunesta) ??? Other prescription opioids KNOW YOUR OPTIONS Talk to your health care provider about ways to manage your pain that don???t involve prescription opioids. Some of these options may actually work better and have fewer risks and side effects. Options may include: ??? Pain relievers such as acetaminophen, ibuprofen, and naproxen ??? Some medication that are also used for depression or seizures ??? Physical therapy and exercise ??? Cognitive behavioral therapy, a psychological, goal-directed approach, in which patients learn how to modify physical, behavioral, and emotional triggers of pain and stress. IF YOU ARE PRESCRIBED OPIOIDS FOR PAIN: ??? Never take opioids in greater amounts or more often than prescribed. ??? Follow up with your primary health care provider. o Work together to create a plan on how to manage your pain. o Talk about ways to help manage your pain that don???t involve prescription opioids. o Talk about any and all concerns and side effects. ??? Help prevent misuse and abuse o Never sell or share prescription opioids. o Never use another person???s prescription opioids. ??? Store prescription opioids in a secure place and out of reach of others (this may include visitors, children, friends, and family). ??? Safely dispose of unused prescription opioids: Find your community drug take-back program or your pharmacy mail-back program, or flush them down the toilet, following guidance from the Food and Drug Administration (www.fda.gov/Drugs/Resourc esForYou). ??? Visit www.cdc.gov/drugoverdose to learn about the risks of opioids abuse and overdose. ??? If you believe you may be struggling with addiction, tell your health care management assistant and ask for guidance or call [facility]???S National Helpline at 6-250-636-HELP. v Source: US Department of Health and Human Services/Center for Disease Control & Prevention Sen Dasilva (more content not included)... Normal [facility] Glucose Glucometer (BldC) [M ass/Vol]on 04-24-2024 Glucose [Mass/Vol] 72 mg/dL Normal 65-99 [facility] HEMATOLOGYOrdered By: SYSTEM SYSTEM on 04-24-2024 Basophils/100 WBC (Bld) 0.7 % Normal 0.0 - 2.0 % Remisol Heme Basophils/Leukocytes Auto (Bld) [Pure # fraction] 0.1 E9/L Normal 0.0 - 0.2 E9/L Remisol Heme Eosinophils (Bld) [#/Vol] 0.2 E9/L Normal 0.0 - 0.5 E9/L Remisol Heme Eosinophils/100 WBC (Bld) 2.6 % Normal 0.0 - 8.0 % Remisol Heme Erythrocyte distribution width (RBC) [Ratio] 14.5 % High 10.9 - 14.2 % Remisol Heme Hematocrit (Bld) [Volume fraction] 40.3 % Normal 34.0 - 46.0 % Remisol Heme Hemoglobin (Bld) [Mass/Vol] 13.4 g/dL Normal 12.0 - 16.0 gm/dL Remisol Heme Lymphocytes (Bld) [#/Vol] 1.7 E9/L Normal 1.0 - 4.0 E9/L Remisol Heme Lymphocytes/100 WBC (Bld) 21.7 % Normal 14.0 - 50.0 % Remisol Heme MCH (RBC) [Entitic mass] 29.3 pg Normal 27.0 - 34.0 pg Remisol Heme MCHC (RBC) [Mass/Vol] 33.2 g/dL Normal 31.4 - 36.0 gm/dL Remisol Heme MCV (RBC) [Entitic vol] 88.4 fL Normal 80.0 - 100.0 fL Remisol Heme Monocytes (Bld) [#/Vol] 0.9 E9/L Normal 0.2 - 1.0 E9/L Remisol Heme Monocytes/100 WBC (Bld) 11.0 % Normal 4.0 - 14.0 % Remisol Heme Neutrophils (Bld) [#/Vol] 5.1 E9/L Normal 2.0 - 7.5 E9/L Remisol Heme Neutrophils/100 WBC (Bld) 64.0 % Normal 36.0 - 75.0 % Remisol Heme Platelet 281.0 E9/L Normal 150.0 - 500.0 E9/L Remisol Heme Platelet mean volume (Bld) [Entitic vol] 8.0 fL Normal 6.4 - 10.8 fL Remisol Heme RBC (Bld) [#/Vol] 4.6 E12/L Normal 4.3 - 5.9 E12/L Remisol Heme WBC corrected for nucl RBC Auto (Bld) [#/Vol] 8.0 E9/L Normal 4.0 - 11.0 E9/L Remisol Heme HGB A1C (GLYCO-HGB)on 2023 Glucose [Mass/Vol] 114 mg/dL Normal [facility] Comment on above: Performed By: #### C REKHA ENRIQUEZ, SMITHA #### [facility] ([id number]) [address], [address] [place] [address] HbA1c (Bld) [Mass fraction] 5.6 % Normal 4.4-5.6 [facility] Comment on above: Result Comment: NOTE ADA Guidelines Result HgbA1c Normal : less than 5.7 % Prediabetes : 5.7 % to 6.4 % Diabetes : > 6.4 % Use with caution in patients with abnormal hemoglobin variants as the half-life of red blood cells and in vivo glycation rates are affected. Performed By: #### C REKHA ENRIQUEZ, SMITHA #### [facility] ([id number]) [address], [address] [place] [address] PT & PTTon 04-24-2024 aPTT Coag (PPP) [Time] 35.6 second(s) Normal 25.1-36.5 [facility] Comment on above: Result Comment: Para meter 15 days - 4 weeks 1 - 5 months 6 - 11 months 1 - 5 years 6 - 10 years 11 - 17 years PTT Mean: 35.4 (27.6-45.6) Mean: 33.5 (24.8-40.7) Mean: 32.4 (25.1-40.7) Mean: 31.6 (24.0-39.2) Mean: 31.6 (26.9-38.7) Mean: 31.0 (24.6-38.4) Pediatric Reference ranges were obtained from a study by Morteza Walter et al. prepared from 1437 samples obtained at 7 different centers using the same coagulation reagent and instrumentation as [facility]. Currently there are no coagulation studies available worldwide for children to 14 days, and no normal ranges. Heparin therapeutic range (represented by Anti-Factor Xa activity of 0.2 - 0.4 U/mL) corresponds to PTT of 56.6 - 109.0 sec. Performed By: #### 1 [id number] #### [facility] [address] [place] [address] INR Coag (PPP) [Relative time] 0.96 {INR} Invalid Interpretation Code [facility] Comment on above: Result Comment: INR results are specifically intended to assess patients stabilized on long-term Anticoagulation therapy suggested INR???s ???Less Intensive Anticoagulation??? 2.0 ??? 3.0 Conventional Range 3.0 ??? 4.5 Performed By: #### 1 [id number] #### [facility] [address] [place] [address] PT Coag (PPP) [Time] 10.8 second(s) Normal 9.4-12.5 [facility] Comment on above: Result Comment: 15 d ays - 4 weeks 1 - 5 months 6 -11 months 1- 5 years 6-10 years 11 -17 years Mean: 11.2 (9.5-12.6) Mean: 11.0 (9.7-12.8) Mean: 11.0 (9.8-13.0) Mean: 11.3 (9.9-13.4) Mean: 11.7 (10.0-14.6) Mean: 11.8 (10.0 - 14.1) Pediatric Reference ranges were obtained from a study by Morteza Walter et al. prepared from 1437 samples obtained at 7 different centers using the same coagulation reagent and instrumentation as [facility]. Currently there are no coagulation studies available worldwide for children to 14 days, and no normal ranges. Performed By: #### 1 [id number] #### [facility] [address] [place] [address] Pre-Arrival Noteon 4 Pre-Arrival Note Pre-Arrival Note Pre-Arrival Summary Name: , [facility] Current Date: 04/24/2024 15:16:12 EST Gender: Female Date of : Age: 68 Pre-Arrival Type: EMS ETA: 04/24/2024 15:32:00 EST Primary Care Physician: Presenting Problem: poss stroke Pre-Arrival User: Mary Munoz RN Referring Source: Location: Completion Date/Time: 04/24/2024 15:02:00 [facility] Emergency Department Pre-Hospital Report Form _ Vital Signs: Pre-Hospital Report: Treatment in Route: Response to Treatment: Misc. Issues: Normal [facility] Troponin 0 Hr.on 04-24-2024 Troponin HS 5.30 pg/mL Low 10.10-27.1 0 [facility] Comment on above: Result Comment: The 95% CI (Confidence Interval) PPV (Positive Predictive Value) for myocardial infarction in females is 38 pg/mL, in males 51 pg/mL. The results should be used in conjunction with clinical conditions of myocardial infarction. (Access High Sensitivity Troponin I Instructions For Use, Luisa [employer], January 2018) Performed By: #### 1 [id number] #### [facility] [address] [place] [address] URINALYSISOrdered By: SYSTEM SYSTEM on 04-24-2024 Bilirubin Ql (U) Negative Normal Negativemg /dL [facility] UA Auto SS Clarity (U) Clear (04/24/24 3:47 PM) Normal Clear [facility] UA Auto SS Color (U) Light-Yellow 1 (04/24/24 3:47 PM) Normal Yellow [facility] UA Auto SS Comment on above: Interpretive Data: M icroscopic readings are only performed on those samples that meet specific criteria set forth by [facility]. Glucose Ql (U) Negative Normal Negativemg /dL [facility] UA Auto SS Hemoglobin Auto test strip (U) [Mass/Vol] Negative Normal Negativemg /dL [facility] UA Auto SS Ketones Auto test strip Ql (U) Negative Normal Negativemg /dL [facility] UA Auto SS Leukocyte esterase Auto test strip Ql (U) Negative Normal NegativeLe u/uL [facility] UA Auto SS Nitrite Auto test strip Ql (U) Negative Normal Negativemg /dL [facility] UA Auto SS pH (U) 6.5 *NA* (04/24/24 3:47 PM) Invalid Interpretation Code 5.0 - 9.0 [facility] UA Auto SS Protein Ql (U) Negative Normal Negativemg /dL [facility] UA Auto SS Specific gravity (U) [Rel density] 1.016 *NA* (04/24/24 3:47 PM) Invalid Interpretation Code 1.005 - 1.030 [facility] UA Auto SS Urobilinogen (U) [Mass/Vol] Negative Normal Negativemg /dL [facility] UA Auto SS URINALYSISOrdered By: Reina Gómez on 04-24-2024 UA Spec Desc Catheter (04/24/24 3:47 PM) Normal [facility] UA Auto SS eGFRon 04-24-2024 eGFR 61 mL/min/1.73 m2 Normal >=59 [facility] Comment on above: Performed By: #### 1 [id number] #### [facility] [address] [place] [address] XR SHOULDER 2+ VIEWS BILATER [place] 04-02-2024 XR SHOULDER 2+ VIEWS BILATERAL EXAM: XR BILATERAL SHOULDERS REASON FOR STUDY: Bilateral shoulder pain COMPARISON: None FINDINGS: 4 views of each shoulder Right shoulder: The glenohumeral joint alignment is normal. There is joint space narrowing of the acromioclavicular joint with superior spurring and minimal subacromial spurring. There is no fracture. Couple tiny granulomas are noted in the right upper lobe of the lung. Left shoulder: The glenohumeral joint alignment is normal. There is joint space narrowing of the acromioclavicular joint with superior spurring. There is no fracture. Small granulomas in the left upper lung are noted. IMPRESSION: Mild degenerative changes of the acromioclavicular joints. Dictated on: 04/02/2024 1:33 PM This report has been electronically signed and approved by the interpreting Radiologist. Electronically Signed Carlos Carrillo D.O. 2024-04-02 13:34:20 Normal Not Available DEXA BONE DENSITYon 02-05-20 DEXA BONE DENSITY Region BMD Young-Issa lt Age-Matched Total (g/cm2) (%) T-Score (%) Z-Score L forearm 0.557 80 -2.3 97 -0.3 IMPRESSION: Impression: Comparison made with prior examination of July 23, 2021 percentage change is +4.1%. The mean BMD and corresponding T-score indicated above indicate Low Bone Mass (Osteopenia) Borderline Osteoporosis and places the patient at a mild to moderate increased risk for fracture. There may be a future risk of developing osteoporosis. Region BMD Young-Adult Age-Matched Total (g/cm2) (%) T-Score (%) Z-Score R forearm 0.623 90 -1.2 108 +0.8 Impression: Comparison made with prior examination of July 23, 2021 percentage change is -0.1%. The mean BMD and corresponding T-score indicated above indicate Low Bone Mass (Osteopenia) and places the patient at a mild to moderate increased risk for fracture. There may be a future risk of developing osteoporosis. Comment: The T-score is the primary focus of the interpretation of a patient?s bone mineral density measurement. The T-score is the number of standard deviations an individual is above or below the mean value for a young female having normal bone mass. The WHO defines osteoporosis based on the T-score value? +1.0 to ?0.9: Normal bone mass -1.0 to -2.5: Osteopenia and thus may be at future risk of fracture -2.6 to ?5: Osteoporosis and ?at significantly increased risk of fracture? TRANSCRIBED BY: ELECTRONICALLY SIGNED BY: Trace Baldwin MD Normal Not Available XR CHEST 2 VIEWSon XR CHEST 2 VIEWS TITLE OF EXAM: XR - CHEST 2 VIEWS REASON FOR EXAM: Cough TECHNIQUE: 2 radiographs of the chest. COMPARISON: None FINDINGS: Normal lung expansion. No diffuse pulmonary abnormality. No consolidation. Tiny/subcentimeter nodularity of the mid to upper lungs bilaterally, favored granulomata. No significant effusion or pneumothorax. The cardiomediastinal silhouette is normal. No acute osseous or upper abdominal abnormality. IMPRESSION: No evidence of pneumonia or other acute cardiopulmonary abnormality. DICTATED ON: 01/19/2024 10:20 AM This report has been electronically signed in approved by the interpreting radiologist. Electronically Signed Irvin Guillen M.D. 2024-01-19 10:21:08 Normal Not Available Activated partial thrombopla stin time (aPTT) in platelet poor plasma by coagulation aOrdered By: PROVIDER TEMP on 09-07-2023 aPTT Coag (PPP) [Time] 30.0 s 25.1-36.5 [facility] Comment on above: A hematocrit value g reater than 55% may lead to inaccurate results in coagulation testing. Patients having hematocrit values >55% require a special collection tube for coagulation studies. Please contact the laboratory at [phone] for redraw instructions. Alanine aminotransferase [En zymatic activity/volume] in Serum or PlasmaOrdered By: PROVIDER TEMP on 09-07-2023 ALT [Catalytic activity/Vol] 40 U/L 7-52 [facility] Albumin [Mass/volume] in Ser um or Plasma by Bromocresol green (BCG) dye binding methoOrdered By: PROVIDER TEMP on 09-07-2023 Albumin BCG dye [Mass/Vol] 4.8 g/dL 3.5-5.7 [facility] Alkaline phosphatase [Enzyma tic activity/volume] in Serum or PlasmaOrdered By: PROVIDER TEMP on 09-07-2023 ALP [Catalytic activity/Vol] 59 U/L 34-104 [facility] Aspartate aminotransferase [ Enzymatic activity/volume] in Serum or PlasmaOrdered By: PROVIDER TEMP on 09-07-2023 AST [Catalytic activity/Vol] 34 U/L 13-39 [facility] Automated erythrocytes count in urine sediment (number/area)Ordered By: PROVIDER TEMP on 09-07-2023 RBC Auto (Urine sed) [#/Area] 3-4 [HPF] 0-4 [facility] Automated leukocytes count i n urine sediment (number/area)Ordered By: PROVIDER TEMP on 09-07-2023 WBC Auto (Urine sed) [#/Area] 3-4 [HPF] 0-4 [facility] Basophils Auto (Bld) [#/Vol] Ordered By: PROVIDER TEMP on 09-07-2023 Basophils (Bld) [#/Vol] 0.0 10*3/uL 0.0-0.2 [facility] Basophils/100 WBC Auto (Bld) Ordered By: PROVIDER TEMP on 09-07-2023 Basophils/100 WBC (Bld) 0.3 % . [facility] Bilirubin Test strip Ql (U)O rdered By: PROVIDER TEMP on 09-07-2023 Bilirubin Ql (U) Negative Negative [facility] Bilirubin.total [Mass/volume ] in Serum or PlasmaOrdered By: PROVIDER TEMP on 09-07-2023 Bilirubin [Mass/Vol] 0.4 mg/dL 0.3-1.0 [facility] Calcium [Mass/volume] in Ser um or PlasmaOrdered By: PROVIDER TEMP on 09-07-2023 Calcium [Mass/Vol] 9.6 mg/dL 8.6-10.[address] [facility] Carbon dioxide, total [Moles /volume] in Serum or PlasmaOrdered By: PROVIDER TEMP on 09-07-2023 CO2 [Moles/Vol] 29.9 mmol/L 21.0-31.0 [facility] Chloride [Moles/volume] in S rolando or PlasmaOrdered By: PROVIDER TEMP on 09-07-2023 Chloride [Moles/Vol] 105 mmol/L 98-107 [facility] Color Auto (U)Ordered By: AR OVIDER TEMP on 09-07-2023 Color (U) Dark yellow Yellow [facility] Creatinine [Mass/volume] in Serum or PlasmaOrdered By: PROVIDER TEMP on 09-07-2023 Creatinine [Mass/Vol] 1.11 mg/dL 0.60-1.20 [facility] Eosinophils Auto (Bld) [#/Vo l]Ordered By: PROVIDER TEMP on 09-07-2023 Eosinophils (Bld) [#/Vol] 0.2 10*3/uL 0.0-0.45 [facility] Eosinophils/100 WBC Auto (Bl d)Ordered By: PROVIDER TEMP on 09-07-2023 Eosinophils/100 WBC (Bld) 2.2 % . [facility] Erythrocyte distribution wid th Auto (RBC) [Ratio]Ordered By: PROVIDER TEMP on 09-07-2023 Erythrocyte distribution width (RBC) [Ratio] 14.7 % 11.9-15.3 [facility] Fibrin D-dimer [Presence] in Platelet poor plasma by Latex agglutinationOrdered By: PROVIDER TEMP on 09-07-2023 Fibrin D-dimer LA Ql (PPP) 247 ng/mL 0-243 [facility] Comment on above: The reference range [...] coagulation studies. Please contact the laboratory at [phone] for redraw instructions. Fibrinogen [Mass/volume] in Platelet poor plasma by Coagulation assayOrdered By: PROVIDER TEMP on 09-07-2023 Fibrinogen Coag (PPP) [Mass/Vol] 377 mg/dL 200-393 [facility] Comment on above: A hematocrit value g reater than 55% may lead to inaccurate results in coagulation testing. Patients having hematocrit values >55% require a special collection tube for coagulation studies. Please contact the laboratory at [phone] for redraw instructions. Globulin Calc (S) [Mass/Vol] Ordered By: PROVIDER TEMP on 09-07-2023 Globulin (S) [Mass/Vol] 2.4 g/dL [facility] Glucose [Mass/volume] in Ser um or PlasmaOrdered By: PROVIDER TEMP on 09-07-2023 Glucose [Mass/Vol] 92 mg/dL 70-[address] [facility] Comment on above: ADA recommended refe rence rangeRandom Glucose Reference Range is dependent on time and content of last meal. Glucose of more than 200 mg/dL in a nonstressed, ambulatory subject supports the diagnosis of Diabetes Mellitus. Hematocrit Auto (Bld) [Volum e fraction]Ordered By: PROVIDER TEMP on 09-07-2023 Hematocrit (Bld) [Volume fraction] 41.7 % 34.0-46.4 [facility] Hemoglobin [Mass/volume] in BloodOrdered By: PROVIDER TEMP on 09-07-2023 Hemoglobin (Bld) [Mass/Vol] 13.4 g/dL 11.8-15.4 [facility] INR in Platelet poor plasma by Coagulation assayOrdered By: PROVIDER TEMP on 09-07-2023 INR Coag (PPP) [Relative time] 1.0 {INR} [facility] Comment on above: INR Therapeutic Rang [...] on 09-07-2023 Ketones (U) [Mass/Vol] Trace Negative [facility] - UrinalysisOrder ed By: PROVIDER TEMP on 09-07-2023 Hyaline casts LM Ql (Urine sed) 0-8 [LPF] 0-8 [facility] Leukocytes [#/volume] correc anita for nucleated erythrocytes in Blood by Automated counOrdered By: PROVIDER TEMP on 09-07-2023 WBC corrected for nucl RBC Auto (Bld) [#/Vol] 9.8 10*3/uL 3.8-11.6 [facility] Lipase [Enzymatic activity/v olume] in Serum or PlasmaOrdered By: PROVIDER TEMP on 09-07-2023 Lipase [Catalytic activity/Vol] 56.0 U/L 11.0-82.0 [facility] Lymphocytes Auto (Bld) [#/Vo l]Ordered By: PROVIDER TEMP on 09-07-2023 Lymphocytes (Bld) [#/Vol] 1.7 10*3/uL 1.00-4.8 [facility] Lymphocytes/100 WBC Auto (Bl d)Ordered By: PROVIDER TEMP on 09-07-2023 Lymphocytes/100 WBC (Bld) 17.6 % . [facility] MCH Auto (RBC) [Entitic mass ]Ordered By: PROVIDER TEMP on 09-07-2023 MCH (RBC) [Entitic mass] 30.0 pg 24.7-34.3 [facility] MCHC Auto (RBC) [Mass/Vol]Or dered By: PROVIDER TEMP on 09-07-2023 MCHC (RBC) [Mass/Vol] 32.2 g/dL 32.0-35.0 [facility] MCV Auto (RBC) [Entitic vol] Ordered By: PROVIDER TEMP on 09-07-2023 MCV (RBC) [Entitic vol] 93.3 fL 80-100 [facility] Monocyte distribution width [Entitic volume] in Blood by AutomatedOrdered By: PROVIDER TEMP on 09-07-2023 Monocyte distribution width Auto (Bld) [Entitic vol] 17.82 % 0.00-20.00 [facility] Monocytes Auto (Bld) [#/Vol] Ordered By: PROVIDER TEMP on 09-07-2023 Monocytes (Bld) [#/Vol] 0.9 10*3/uL 0.0-0.8 [facility] Monocytes/100 WBC Auto (Bld) Ordered By: PROVIDER TEMP on 09-07-2023 Monocytes/100 WBC (Bld) 9.7 % . [facility] Neutrophils Auto (Bld) [#/Vo l]Ordered By: PROVIDER TEMP on 09-07-2023 Neutrophils (Bld) [#/Vol] 6.9 10*3/uL 1.8-7.7 [facility] Neutrophils/100 WBC Auto (Bl d)Ordered By: PROVIDER TEMP on 09-07-2023 Neutrophils/100 WBC (Bld) 70.2 % . [facility] Nitrite Test strip Ql (U)Ord ered By: PROVIDER TEMP on 09-07-2023 Nitrite Ql (U) Negative Negative [facility] No Panel InformationOrdered By: PROVIDER TEMP on 09-07-2023 Estimated GFR (CKD-EPI) 54.142 mL/Min [facility] Creatinine Clearance (Chem N/A [facility] Nucleated erythrocytes [Pres ence] in Blood by Automated countOrdered By: PROVIDER TEMP on 09-07-2023 Nucleated RBC Auto Ql (Bld) 0.0 /100{WBC} 0-0.5 [facility] Platelet mean volume Auto (B ld) [Entitic vol]Ordered By: PROVIDER TEMP on 09-07-2023 Platelet mean volume (Bld) [Entitic vol] 8.2 fL 6.3-10.7 [facility] Platelets Auto (Bld) [#/Vol] Ordered By: PROVIDER TEMP on 09-07-2023 Platelets (Bld) [#/Vol] 278 10*3/uL 150-450 [facility] Potassium [Moles/volume] in Serum or PlasmaOrdered By: PROVIDER TEMP on 09-07-2023 Potassium [Moles/Vol] 3.6 mmol/L 3.5-5.1 [facility] Protein Auto test strip (U) [Mass/Vol]Ordered By: PROVIDER TEMP on 09-07-2023 Protein (U) [Mass/Vol] Trace mg/dL Negative [facility] Protein [Mass/volume] in Ser um or PlasmaOrdered By: PROVIDER TEMP on 09-07-2023 Protein [Mass/Vol] 7.2 g/dL 6.4-8.[address] [facility] Prothrombin time (PT)Ordered By: PROVIDER TEMP on 09-07-2023 PT Coag (PPP) [Time] 11.2 s 9.0-12.9 [facility] Comment on above: A hematocrit value g reater than 55% may lead to inaccurate results in coagulation testing. Patients having hematocrit values >55% require a special collection tube for coagulation studies. Please contact the laboratory at [phone] for redraw instructions. RBC Auto (Bld) [#/Vol]Ordere d By: PROVIDER TEMP on 09-07-2023 RBC (Bld) [#/Vol] 4.47 10*6/uL 3.60-5.00 [facility] Serum or plasma albumin/glob ulin mass ratioOrdered By: PROVIDER TEMP on 09-07-2023 Albumin/Globulin [Mass ratio] 2.0 {ratio} [facility] Serum or plasma anion gap de terminationOrdered By: PROVIDER TEMP on 09-07-2023 Anion gap [Moles/Vol] 8.7 mmol/L 6.0-15.0 [facility] Sodium [Moles/volume] in Ser um or PlasmaOrdered By: PROVIDER TEMP on 09-07-2023 Sodium [Moles/Vol] 140 mmol/L 136-[address] [facility] Specific gravity Auto test s trip (U) [Rel density]Ordered By: PROVIDER TEMP on 09-07-2023 Specific gravity (U) [Rel density] 1.023 1.001-1.03 0 [facility] Squamous epithelial cells de tection in urine sediment by light microscopyOrdered By: PROVIDER TEMP on 09-07-2023 Epithelial cells.squamous LM Ql (Urine sed) 0-1 [HPF] 0-2 [facility] Urea nitrogen [Mass/volume] in Serum or PlasmaOrdered By: PROVIDER TEMP on 09-07-2023 Urea nitrogen [Mass/Vol] 19 mg/dL 7-25 [facility] Urine bacteria detection by automated methodOrdered By: PROVIDER TEM on 09-07-2023 Bacteria Auto Ql (U) None seen None Seen [facility] Urine clarity by refractomet ry automatedOrdered By: PROVIDER TEM on 09-07-2023 Clarity Refractometry automated (U) Clear Clear [facility] Urine glucose measurement by automated test strip (mass/volume)Ordered By: PROVIDER TEM on 09-07-2023 Glucose Auto test strip (U) [Mass/Vol] Normal mg/dL Normal [facility] Urine hemoglobin detection b y automated test stripOrdered By: PROVIDER TEM on 09-07-2023 Hemoglobin Auto test strip Ql (U) Negative Negative [facility] Urine leukocyte esterase det ection by automated test stripOrdered By: PROVIDER TEM on 09-07-2023 Leukocyte esterase Auto test strip Ql (U) 1+ Negative [facility] Urobilinogen Auto test strip (U) [Mass/Vol]Ordered By: PROVIDER TEM on 09-07-2023 Urobilinogen (U) [Mass/Vol] Normal mg/dL Normal [facility] WBC Auto (Bld) [#/Vol]Ordere d By: PROVIDER TEMP on 09-07-2023 WBC (Bld) [#/Vol] 9.8 10*3/uL 3.8-11.[address] [facility] pH Auto test strip (U)Ordere d By: PROVIDER TEMP on 09-07-2023 pH (U) 5.5 [pH] 5.0-9.0 [facility] No Panel Informationon 07-29 ACINETOBACTER BAUMANII 0 NO [facility] ACINETOBACTER BAUMANII Not detected [facility] [...] STAPHYLOCOCCUS EPIDERMIDIS, HAEMOLYTICUS, LUGDUNENSIS, SAPROPHYTICUS (URINA 0 [facility] STAPHYLOCOCCUS EPIDERMIDIS, HAEMOLYTICUS, LUGDUNENSIS, SAPROPHYTICUS (URINA Not detected [facility] STREPTOCOCCUS AGALACTIAE (GROUP B STREP) 0 [facility] STREPTOCOCCUS AGALACTIAE (GROUP B STREP) Not [facility] STREPTOCOCCUS PYOGENES (GROUP A STREP) 0 [facility] STREPTOCOCCUS PYOGENES (GROUP A STREP) Not detected [facility] TET B, TET M 0 PPM [facility] Healthcare TET B, TET M Not detected [facility] [place], VanB 0 PPM [facility] [place], VanB Not detected [facility] - Chemistry and C hemistry - challengeon 07-27-2023 Bilirubin Ql (U) Negative [facility] Glucose [Mass/Vol] Negative [facility] Ketones Ql (U) Negative [facility] pH (U) 6.0 [pH] [facility] Specific gravity (U) [Rel density] 1.015 [facility] Urobilinogen (U) [Mass/Vol] Negative [facility] Laboratory - Hematology and Cell countson 07-27-2023 Hemoglobin Ql (U) 3+ [facility] Laboratory - Urinalysison Nitrite Ql (U) Negative [facility] Protein Ql (U) 2+ [facility] No Panel Informationon 07-27 Interpretation and review of laboratory results Abnormal [facility] LEUKOCYTES 3+ [facility] Calcium [Mass/volume] in Ser um or PlasmaOrdered By: Tamia France on 03-03-2023 Calcium [Mass/Vol] 9.4 mg/dL 8.6-10.[address] [facility] CBC AUTO DIFFon 10-11-2022 BASO # 0.0 103/ul Normal 0.0-0.1 [facility] Comment on above: Performed By: #### V [id number] #### [facility] [address] [place] [address] Dr. Bobby Thibodeaux Basophils/100 WBC (Bld) 0.1 % Critically low 0.2-2.0 [facility] Comment on above: Performed By: #### V [id number] #### [facility] [address] [place] [address] Dr. Bobby Thibodeaux EO # 0.2 103/ul Normal 0.0-0.7 [facility] Comment on above: Performed By: #### V [id number] #### [facility] [address] [place] [address] Dr. Bobby Thibodeaux Eosinophils/100 WBC (Bld) 2.6 % Normal 0.9-7.0 [facility] Comment on above: Performed By: #### V [id number] #### [facility] [address] [place] [address] Dr. Bobby Thibodeaux Erythrocyte distribution width (RBC) [Ratio] 13.7 % Normal 11.0-15.0 [facility] Comment on above: Performed By: #### V [id number] #### [facility] [address] [place] [address] Dr. Bobby Thibodeaux Hematocrit (Bld) [Volume fraction] 42.2 % Normal 36.0-48.0 [facility] Comment on above: Performed By: #### V [id number] #### [facility] [address] [place] [address] Dr. Bobby Thibodeaux Hemoglobin (Bld) [Mass/Vol] 13.3 g/dL Normal 12.0-16.0 [facility] Comment on above: Performed By: #### V [id number] #### [facility] [address] [place] [address] Dr. Bobby Thibodeaux IG # 0.03 10e3/ul Normal 0.00-0.03 [facility] Comment on above: Performed By: #### V [id number] #### [facility] [address] [place] [address] Dr. Bobby Thibodeaux IG % 0.4 % Normal 0.0-0.5 [facility] Comment on above: Performed By: #### V [id number] #### [facility] [address] [place] [address] Dr. Bobby Thibodeaux LYMPH # 1.9 103/ul Normal 1.2-3.8 [facility] Comment on above: Performed By: #### V [id number] #### [facility] [address] [place] [address] Dr. Bobby Thibodeaux Lymphocytes/100 WBC (Bld) 26.5 % Normal 20.5-60.0 [facility] Comment on above: Performed By: #### V [id number] #### [facility] [address] [place] [address] Dr. Bobby Thibodeaux MANUAL DIFF REQ NO Normal [facility] Comment on above: Performed By: #### V [id number] #### [facility] [address] [place] [address] Dr. Bobby Thibodeaux MCH (RBC) [Entitic mass] 29.4 pg Normal 26.7-34.0 [facility] Comment on above: Performed By: #### V [id number] #### [facility] [address] [place] [address] Dr. Bobby Thibodeaux MCHC (RBC) [Mass/Vol] 31.5 g/dL Normal 29.9-35.2 [facility] Comment on above: Performed By: #### V [id number] #### [facility] [address] [place] [address] Dr. Bobby Thibodeaux MCV (RBC) [Entitic vol] 93.4 fL Normal 81.0-99.0 [facility] Comment on above: Performed By: #### V [id number] #### [facility] [address] [place] [address] Dr. Bobby Thibodeaux MONO # 0.6 103/ul Normal 0.3-0.8 [facility] Comment on above: Performed By: #### V [id number] #### [facility] [address] [place] [address] Dr. Bobby Thibodeaux Monocytes/100 WBC (Bld) 8.7 % Normal 1.7-12.0 [facility] Comment on above: Performed By: #### V [id number] #### [facility] [address] [place] [address] Dr. Bobby Thibodeaux NEUT # 4.3 103/ul Normal 1.4-6.5 [facility] Comment on above: Performed By: #### V [id number] #### [facility] [address] [place] [address] Dr. Bobby Thibodeaux Neutrophils/100 WBC (Bld) 61.7 % Normal 43.0-75.0 [facility] Comment on above: Performed By: #### V ITAB6 #### [facility] [address] [place] [address] Dr. Bobby Thibodeaux Platelet mean volume (Bld) [Entitic vol] 9.8 fL Normal 9.5-13.5 [facility] Comment on above: Performed By: #### V ITAB6 #### [facility] [address] [place] [address] Dr. Bobby Thibodeaux PLT 277 103/ul Normal 150-450 [facility] Comment on above: Performed By: #### V ITAB6 #### [facility] [address] [place] [address] Dr. Bobby Thibodeaux RBC 4.52 106/ul Normal 4.20-5.40 [facility] Comment on above: Performed By: #### V ITAB6 #### [facility] [address] [place] [address] Dr. Bobby Thibodeaux WBC 7.0 103/ul Normal 4.0-11.0 [facility] Comment on above: Performed By: #### V ITAB6 #### [facility] [address] [place] [address] Dr. Bobby Thibodeaux CRPon 10-11-2022 CRP 0.4 mg/dL Normal <=1.0 [facility] Comment on above: Performed By: #### V ITAB6 #### [facility] [address] [place] [address] Dr. Bobby Thibodeaux PROF 14(COMP METB)on 023 Albumin [Mass/Vol] 3.5 g/dL Normal 3.4-5.0 [facility] Comment on above: Performed By: #### V ITAB6 #### [facility] [address] [place] [address] Dr. Bobby Thibodeaux Albumin/Globulin [Mass ratio] 1.0 {ratio} Normal [facility] Comment on above: Performed By: #### V ITAB6 #### [facility] [address] [place] [address] Dr. Bobby Thibodeaux ALP [Catalytic activity/Vol] 76 U/L Normal 46-116 [facility] Comment on above: Performed By: #### V ITAB6 #### [facility] [address] [address] [address] Bobby Thibodeaux ALT [Catalytic activity/Vol] 24 U/L Normal 14-59 [facility] Comment on above: Performed By: #### V ITAB6 #### [facility] [address] [place] [address] Dr. Bobby Thibodeaux Anion gap [Moles/Vol] 14.0 mmol/L Normal Th [facility] Comment on above: Performed By: #### V ITAB6 #### [facility] [address] [place] [address] Dr. Bobby Thibodeaux AST [Catalytic activity/Vol] 21 U/L Normal 15-37 [facility] Comment on above: Performed By: #### V ITAB6 #### [facility] [address] [place] [address] Dr. Bobby Thibodeaux Bilirubin [Mass/Vol] 0.3 mg/dL Normal 0.2-1.0 [facility] Comment on above: Performed By: #### V ITAB6 #### [facility] [address] [place] [address] Dr. Bobby Thibodeaux Calcium [Mass/Vol] 9.3 mg/dL Normal 8.5-10.1 [facility] Comment on above: Performed By: #### V ITAB6 #### [facility] [address] [place] [address] Dr. Bobby Thibodeaux Chloride [Moles/Vol] 107 mmol/L Normal 98-107 [facility] Comment on above: Performed By: #### V ITAB6 #### [facility] [address] [place] [address] Dr. Bobby Thibodeaux CO2 [Moles/Vol] 29.6 mmol/L Normal 21.0-32.0 [facility] Comment on above: Performed By: #### V ITAB6 #### [facility] [address] [address] [address] Bobby Thibodeaux Creatinine [Mass/Vol] 0.95 mg/dL Normal 0.55-1.02 [facility] Comment on above: Performed By: #### V ITAB6 #### [facility] [address] [address] [address] Bobby Thibodeaux EGFR-AF MALTESE >60 Normal >=60 [facility] Comment on above: Performed By: #### V ITAB6 #### [facility] [address] [address] [address] Bobby Thibodeaux EGFR-NON AF MALTESE 59 mL/min/1.73m2 Critically low >=60 [facility] Comment on above: Performed By: #### V ITAB6 #### [facility] [address] [address] [address] Bobby Thibodeaux Globulin (S) [Mass/Vol] 3.4 g/dL Normal [facility] Comment on above: Performed By: #### V ITAB6 #### [facility] [address] [address] [address] Bobby Thibodeaux Glucose [Mass/Vol] 87 mg/dL Normal 74-106 [facility] Comment on above: Performed By: #### V ITAB6 #### [facility] [address] [address] [address] Bobby Thibodeaux Potassium [Moles/Vol] 4.6 mmol/L Normal 3.5-5.1 [facility] Comment on above: Performed By: #### V ITAB6 #### [facility] [address] [address] [address] Bobby Thibodeaux Protein [Mass/Vol] 6.9 g/dL Normal 6.4-8.2 [facility] Comment on above: Performed By: #### V ITAB6 #### [facility] [address] [address] [address] Bobby Thibodeaux Sodium [Moles/Vol] 146 mmol/L Critically high 136-145 T [facility] Comment on above: Performed By: #### V ITAB6 #### [facility] [address] [place] [address] Dr. Bobby Thibodeaux Urea nitrogen [Mass/Vol] 16.0 mg/dL Normal 7.0-18.0 [facility] Comment on above: Performed By: #### V ITAB6 #### [facility] [address] [place] [address] Dr. Bobby Thibodeaux Urea nitrogen/Creatinine [Mass ratio] 16.8 mg/mg Normal [facility] Comment on above: Performed By: #### V ITAB6 #### [facility] [address] [place] [address] Dr. Bobby Thibodeaux SED RATE [facility] 2022 SED RATE 24 mm/hr Normal <=30 [facility] Comment on above: Performed By: #### S EDR #### [facility] [address] [place] [address] Dr. Bobby Thibodeaux HEMOGRAM AND PLATELon 2021 Hematocrit (Bld) [Volume fraction] 38.5 % Normal 36.0-48.0 [facility] Comment on above: Performed By: #### H H #### [facility] [address] [place] [address] Dr. Bobby Thibodeaux Hemoglobin (Bld) [Mass/Vol] 12.4 g/dL Normal 12.0-16.0 [facility] Comment on above: Performed By: #### H H #### [facility] [address] [place] [address] Dr. Bobby Thibodeaux MCH (RBC) [Entitic mass] 31.9 pg Normal 26.7-34.0 [facility] Comment on above: Performed By: #### H H #### [facility] [address] [place] [address] Dr. Bobby Thibodeaux MCHC (RBC) [Mass/Vol] 32.2 g/dL Normal 29.9-35.2 [facility] Comment on above: Performed By: #### H H #### [facility] [address] [place] [address] Dr. Bobby Thibodeaux MCV (RBC) [Entitic vol] 99.0 fL Normal 81.0-99.0 [facility] Comment on above: Performed By: #### H H #### [facility] [address] [place] [address] Dr. Bobby Thibodeaux PLT 290 103/ul Normal 150-450 [facility] Comment on above: Performed By: #### H H #### [facility] [address] [place] [address] Dr. Bobby Thibodeaux RBC 3.89 106/ul Critically low 4.20-5.40 [facility] Comment on above: Performed By: #### H H #### [facility] [address] [place] [address] Dr. Bobby Thibodeaux WBC 8.0 103/ul Normal 4.0-11.0 [facility] Comment on above: Performed By: #### H H #### [facility] [address] [place] [address] Dr. Bobby Thibodeaux VITAMIN D 25 OHon 06-05-2022 VIT D 25-OH 66.3 ng/mL Normal [facility] Comment on above: Performed By: #### V ITAB6 #### [facility] [address] [place] [address] Dr. Bobby Thibodeaux VIT D RANGES SEE BELOW Normal [facility] Comment on above: Result Comment: <20 ng/mL Vit D deficient 20 - <30 ng/mL Vit D insufficient 30 - 100 ng/mL Vit D sufficient >100 ng/mL Potential Toxicity Performed By: #### V ITAB6 #### [facility] [address] [place] [address] Dr. Bobby Thibodeaux No Panel Informationon 02-26 [facility] VITAMIN B1 (THIAMINE)on 12-15 Vit. B1, Whole Blood 144.4 nmol/L Normal 66.5-200.0 Th [facility] Comment on above: Performed By: #### V ITAB6 #### [facility] [address] [place] [address] Dr. Bobby Thibodeaux VITAMIN B6on 01-01-2022 Vitamin B6 10.5 ug/L Normal 3.4-65.2 [facility] Comment on above: Result Comment: Defi ciency: <3.4 Marginal: 3.4 - 5.1 Adequate: >5.1 Performed By: #### V ITAB6 #### [facility] [address] [place] [address] Dr. Bobby Thibodeaux CBC AUTO DIFFon 12-28-2021 BASO # 0.0 103/ul Normal 0.0-0.1 [facility] Comment on above: Performed By: #### C BC #### [facility] [address] [place] [address] Dr. Bobby Thibodeaux Basophils/100 WBC (Bld) 0.3 % Normal 0.2-2.0 [facility] Comment on above: Performed By: #### C BC #### [facility] [address] [place] [address] Dr. Bobby Thibodeaux EO # 0.2 103/ul Normal 0.0-0.7 [facility] Comment on above: Performed By: #### C BC #### [facility] [address] [place] [address] Dr. Bobby Thibodeaux Eosinophils/100 WBC (Bld) 2.8 % Normal 0.9-7.0 [facility] Comment on above: Performed By: #### C BC #### [facility] [address] [place] [address] Dr. Bobby Thibodeaux Erythrocyte distribution width (RBC) [Ratio] 14.0 % Normal 11.0-15.0 [facility] Comment on above: Performed By: #### C BC #### [facility] [address] [place] [address] Dr. Bobby Thibodeaux Hematocrit (Bld) [Volume fraction] 38.6 % Normal 36.0-48.0 [facility] Comment on above: Performed By: #### C BC #### [facility] [address] [place] [address] Dr. Bobby Thibodeaux Hemoglobin (Bld) [Mass/Vol] 12.5 g/dL Normal 12.0-16.0 [facility] Comment on above: Performed By: #### C BC #### [facility] [address] [place] [address] Dr. Bobby Thibodeaux IG # 0.05 10e3/ul Critically high 0.00-0.03 [facility] Comment on above: Performed By: #### C BC #### [facility] [address] [place] [address] Dr. Bobby Thibodeaux IG % 0.7 % Critically high 0.0-0.5 [facility] Comment on above: Performed By: #### C BC #### [facility] [address] [place] [address] Dr. Bobby Thibodeaux LYMPH # 1.6 103/ul Normal 1.2-3.8 [facility] Comment on above: Performed By: #### C BC #### [facility] [address] [place] [address] Dr. Bobby Thibodeaux Lymphocytes/100 WBC (Bld) 22.2 % Normal 20.5-60.0 [facility] Comment on above: Performed By: #### C BC #### [facility] [address] [place] [address] Dr. Bobby Thibodeaux MANUAL DIFF REQ NO Normal [facility] Comment on above: Performed By: #### C BC #### [facility] [address] [place] [address] Dr. Bobby Thibodeaux MCH (RBC) [Entitic mass] 32.0 pg Normal 26.7-34.0 [facility] Comment on above: Performed By: #### C BC #### [facility] [address] [place] [address] Dr. Bobby Thibodeaux MCHC (RBC) [Mass/Vol] 32.4 g/dL Normal 29.9-35.2 [facility] Comment on above: Performed By: #### C BC #### [facility] [address] [place] [address] Dr. Bobby Thibodeaux MCV (RBC) [Entitic vol] 98.7 fL Normal 81.0-99.0 [facility] Comment on above: Performed By: #### C BC #### [facility] [address] [place] [address] Dr. Bobby Thibodeaux MONO # 0.6 103/ul Normal 0.3-0.8 [facility] Comment on above: Performed By: #### C BC #### [facility] [address] [place] [address] Dr. Bobby Thibodeaux Monocytes/100 WBC (Bld) 8.3 % Normal 1.7-12.0 [facility] Comment on above: Performed By: #### C BC #### [facility] [address] [place] [address] Dr. Bobby Thibodeaux NEUT # 4.7 103/ul Normal 1.4-6.5 [facility] Comment on above: Performed By: #### C BC #### [facility] [address] [place] [address] Dr. Bobby Thibodeaux Neutrophils/100 WBC (Bld) 65.7 % Normal 43.0-75.0 [facility] Comment on above: Performed By: #### C BC #### [facility] [address] [place] [address] Dr. Bobby Thibodeaux Platelet mean volume (Bld) [Entitic vol] 9.6 fL Normal 9.5-13.5 [facility] Comment on above: Performed By: #### C BC #### [facility] [address] [place] [address] Dr. Bobby Thibodeaux PLT 243 103/ul Normal 150-450 [facility] Comment on above: Performed By: #### C BC #### [facility] [address] [place] [address] Dr. Bobby Thibodeaux RBC 3.91 106/ul Critically low 4.20-5.40 [facility] Comment on above: Performed By: #### C BC #### [facility] [address] [place] [address] Dr. Bobby Thibodeaux WBC 7.2 103/ul Normal 4.0-11.0 [facility] Comment on above: Performed By: #### C BC #### [facility] [address] [place] [address] Dr. Bobby Thibodeaux FERRITINon 12-28-2021 Ferritin [Mass/Vol] 115.0 ng/mL Normal 8.0-252.0 [facility] Comment on above: Performed By: #### V ITAD, FERR, FETIBC, B12FOL #### [facility] [address] [place] [address] Dr. Bobby Thibodeaux IRON AND TIBCon 12-28-2021 % SATURATION 30.2 % Normal [facility] Comment on above: Performed By: #### V ITAD, FERR, FETIBC, B12FOL #### [facility] [address] [place] [address] Dr. Bobby Thibodeaux Iron [Mass/Vol] 78.0 ug/dL Normal 50.0-170.0 [facility] Comment on above: Performed By: #### V ITAD, FERR, FETIBC, B12FOL #### [facility] [address] [place] [address] Dr. Bobby Thibodeaux TIBC DIRECT 258.0 ug/dL Normal 250.0-450. 0 [facility] Comment on above: Performed By: #### V ITAD, FERR, FETIBC, B12FOL #### [facility] [address] [place] [address] Dr. Bobby Thibodeaux LIPID PROFILEon 12-28-2021 CHOL-HDL RATIO NORM SEE BELOW Normal [facility] Comment on above: Result Comment: 3.3 - 4.4 LOW RISK 4.4 - 7.1 AVERAGE RISK 7.1 - 11.0 MODERATE RISK >11.0 HIGH RISK Performed By: #### C MP, LIPID #### [facility] [address] [place] [address] Dr. Bobby Thibodeaux Cholesterol [Mass/Vol] 190 mg/dL Normal <=200 [facility] Comment on above: Performed By: #### C MP, LIPID #### [facility] [address] [place] [address] Dr. Bobby Thibodeaux Cholesterol in HDL [Mass/Vol] 71 mg/dL Critically high 40-60 [facility] Comment on above: Performed By: #### C MP, LIPID #### [facility] [address] [place] [address] Dr. Bobby Thibodeaux Cholesterol in LDL [Mass/Vol] 98.0 mg/dL Normal [facility] Comment on above: Performed By: #### C MP, LIPID #### [facility] [address] [place] [address] Dr. Bobby Thibodeaux Cholesterol.total/Chol esterol in HDL [Mass ratio] 2.7 {ratio} Normal [facility] Comment on above: Performed By: #### C MP, LIPID #### [facility] [address] [place] [address] Dr. Bobby Thibodeaux HDL NORMAL > or = 60 mg/dl - LO W CARDIOVASCULAR RISK <40 mg/dl - HIGH CARDIOVASCULAR RISK Normal [facility] Comment on above: Performed By: #### C MP, LIPID #### [facility] [address] [place] [address] Dr. Bobby Thibodeaux LDL CALC NORMAL SEE BELOW Normal [facility] Comment on above: Result Comment: <100 mg/dl OPTIMAL 100 - 129 mg/dl NEAR OR ABOVE OPTIMAL 130 - 159 mg/dl BORDERLINE HIGH 160 - 189 mg/dl HIGH >190 mg/dl VERY HIGH Performed By: #### C MP, LIPID #### [facility] [address] [place] [address] Dr. Bobby Thibodeaux Triglyceride [Mass/Vol] 105 mg/dL Normal <=150 [facility] Comment on above: Performed By: #### C MP, LIPID #### [facility] [address] [place] [address] Dr. Bobby Thibodeaux VLDL CALC 21.0 mg/dL Normal [facility] Comment on above: Performed By: #### C MP, LIPID #### [facility] [address] [place] [address] Dr. Bobby Thibodeaux PROF 14(COMP METB)on 022 Albumin [Mass/Vol] 3.5 g/dL Normal 3.4-5.0 [facility] Comment on above: Performed By: #### C MP, LIPID #### [facility] [address] [place] [address] Dr. Bobby Thibodeaux Albumin/Globulin [Mass ratio] 1.2 {ratio} Normal [facility] Comment on above: Performed By: #### C MP, LIPID #### [facility] [address] [address] [address] Bobby Thibodeaux ALP [Catalytic activity/Vol] 57 U/L Normal 46-116 [facility] Comment on above: Performed By: #### C MP, LIPID #### [facility] [address] [address] [address] Bobby Thibodeaux ALT [Catalytic activity/Vol] 39 U/L Normal 14-59 [facility] Comment on above: Performed By: #### C MP, LIPID #### [facility] [address] [address] [address] Bobby Thibodeaux Anion gap [Moles/Vol] 10.9 mmol/L Normal Th [facility] Comment on above: Performed By: #### C MP, LIPID #### [facility] [address] [place] [address] Dr. Bobby Thibodeaux AST [Catalytic activity/Vol] 33 U/L Normal 15-37 [facility] Comment on above: Performed By: #### C MP, LIPID #### [facility] [address] [place] [address] Dr. Bobby Thibodeaux Bilirubin [Mass/Vol] 0.5 mg/dL Normal 0.2-1.0 [facility] Comment on above: Performed By: #### C MP, LIPID #### [facility] [address] [place] [address] Dr. Bobby Thibodeaux Calcium [Mass/Vol] 8.9 mg/dL Normal 8.5-10.1 [facility] Comment on above: Performed By: #### C MP, LIPID #### [facility] [address] [place] [address] Dr. Bobby Thibodeaux Chloride [Moles/Vol] 107 mmol/L Normal 98-107 [facility] Comment on above: Performed By: #### C MP, LIPID #### [facility] [address] [address] [address] Bobby Thibodeaux CO2 [Moles/Vol] 30.0 mmol/L Normal 21.0-32.0 [facility] Comment on above: Performed By: #### C MP, LIPID #### [facility] [address] [address] [address] Bobby Thibodeaux Creatinine [Mass/Vol] 1.02 mg/dL Normal 0.55-1.02 [facility] Comment on above: Performed By: #### C MP, LIPID #### [facility] [address] [address] [address] Bobby Thibodeaux EGFR-AF MALTESE >60 Normal >=60 [facility] Comment on above: Performed By: #### C MP, LIPID #### [facility] [address] [address] [address] Bobby Thibodeaux EGFR-NON AF MALTESE 54 mL/min/1.73m2 Critically low >=60 [facility] Comment on above: Performed By: #### C MP, LIPID #### [facility] [address] [place] [address] Dr. Bobby Thibodeaux Globulin (S) [Mass/Vol] 2.9 g/dL Normal [facility] Comment on above: Performed By: #### C MP, LIPID #### [facility] [address] [address] [address] Bobby Thibodeaux Glucose [Mass/Vol] 83 mg/dL Normal 74-106 [facility] Comment on above: Performed By: #### C MP, LIPID #### [facility] [address] [address] [address] Bobby Thibodeaux Potassium [Moles/Vol] 3.9 mmol/L Normal 3.5-5.1 [facility] Comment on above: Performed By: #### C MP, LIPID #### [facility] [address] [address] [address] Bobby Thibodeaux Protein [Mass/Vol] 6.4 g/dL Normal 6.4-8.2 [facility] Comment on above: Performed By: #### C MP, LIPID #### [facility] [address] [address] [address] Bobby Thibodeaux Sodium [Moles/Vol] 144 mmol/L Normal 136-145 [facility] Comment on above: Performed By: #### C MP, LIPID #### [facility] [address] [address] [address] Bobby Thibodeaux Urea nitrogen [Mass/Vol] 20.0 mg/dL Critically high 7.0-18.0 [facility] Comment on above: Performed By: #### C MP, LIPID #### [facility] [address] [place] [address] Dr. Bobby Thibodeaux Urea nitrogen/Creatinine [Mass ratio] 19.6 mg/mg Normal [facility] Comment on above: Performed By: #### C MP, LIPID #### [facility] [address] [place] [address] Dr. Bobby Thibodeaux VIT B12 AND FOLATEon 022 Cobalamin (Vitamin B12) [Mass/Vol] 1137.0 pg/mL Critically high 193.0-986. 0 [facility] Comment on above: Performed By: #### V ITAD, FERR, FETIBC, B12FOL #### [facility] [address] [place] [address] Dr. Bobby Thibodeaux FOLATE 25.80 ng/mL Normal 8.60-58.90 [facility] Comment on above: Performed By: #### V ITAD, FERR, FETIBC, B12FOL #### [facility] [address] [place] [address] Dr. Bobby Thibodeaux VITAMIN D 25 OHon 12-28-2021 VIT D 25-OH 77.4 ng/mL Normal [facility] Comment on above: Performed By: #### V ITAD, FERR, FETIBC, B12FOL #### [facility] [address] [place] [address] Dr. Bobby Thibodeaux VIT D RANGES SEE BELOW Normal [facility] Comment on above: Result Comment: <20 ng/mL Vit D deficient 20 - <30 ng/mL Vit D insufficient 30 - 100 ng/mL Vit D sufficient >100 ng/mL Potential Toxicity Performed By: #### V ITAD, FERR, FETIBC, B12FOL #### [facility] [address] [place] [address] Dr. Bobby Thibodeaux MRI Wrist w/o Righton [...] by Carlos Floyd on 08/09/2021 1404 Normal [facility] Specialist Vital Signs Date Time Vital Sign Value Performing Clinician Facility 01-14-2025 10:37-0400 Body mass index (BMI) [Ratio] 23.86 kg/m2 Cheryl Risaliti [employer] Work Phone: [facility] 01-14-2025 10:37-0400 Body weight 63.05 kg Cheryl Risaliti [employer] Work Phone: [facility] 01-14-2025 10:37-0400 Diastolic blood pressure 82 mm[Hg] Cheryl Risaliti [employer] Work Phone: [facility] 01-14-2025 10:37-0400 Heart rate 94 /min Cheryl Risaliti [employer] Work Phone: [facility] 01-14-2025 10:37-0400 SaO2% (BldA) [Mass fraction] 99 % Cheryl Risaliti [employer] Work Phone: [facility] 01-14-2025 10:37-0400 Systolic blood pressure 132 mm[Hg] Cheryl Risaliti [employer] Work Phone: [facility] 12-28-2024 10:41-0400 Body height 162.6 cm Cheryl Risaliti [employer] Work Phone: [facility] 12-28-2024 10:41-0400 Body mass index (BMI) [Ratio] 23.86 kg/m2 Cheryl Risaliti [employer] Work Phone: [facility] 12-28-2024 10:41-0400 Body weight 63.05 kg Cheryl Risaliti [employer] Work Phone: [facility] 12-28-2024 10:41-0400 Diastolic blood pressure 78 mm[Hg] Cheryl Risaliti [employer] Work Phone: [facility] 12-28-2024 10:41-0400 Heart rate 90 /min Cheryl Risaliti [employer] Work Phone: [facility] [facility] 12-28-2024 10:41-0400 SaO2% (BldA) [Mass fraction] 98 % Cheryl Risaliti [employer] Work Phone: [facility] 12-28-2024 10:41-0400 Systolic blood pressure 118 mm[Hg] Cheryl Risaliti [employer]CR[employer]ER Work Phone: [facility] 10-06-2024 08:05-0400 Body height 162.6 cm Pacc 2 Work Phone: [facility] 10-06-2024 08:05-0400 Body mass index (BMI) [Ratio] 24.22 kg/m2 Pacc 2 Work Phone: [facility] 10-06-2024 08:05-0400 Body temperature 98.1 [degF] Pacc 2 Work Phone: [facility] 10-06-2024 08:05-0400 Body weight 64 kg Pacc 2 Work Phone: [facility] Comment on above: actual weight 10-06-2024 08:05-0400 Diastolic blood pressure 83 mm[Hg] Pacc 2 Work Phone: [facility] 10-06-2024 08:05-0400 Heart rate 66 /min Pacc 2 Work Phone: [facility] 10-06-2024 08:05-0400 Respiratory rate 16 /min Pacc 2 Work Phone: [facility] 10-06-2024 08:05-0400 SaO2% (BldA) [Mass fraction] 99 % Pacc 2 Work Phone: [facility] 10-06-2024 08:05-0400 Systolic blood pressure 138 mm[Hg] Pacc 2 Work Phone: [facility] 09-28-2024 10:37-0400 Body height 162.6 cm Mandi Solomon DO Work Phone: [facility] 09-28-2024 10:37-0400 Body mass index (BMI) [Ratio] 24.03 kg/m2 Mandi Solomon DO Work Phone: [facility] 09-28-2024 10:37-0400 Body weight 63.5 kg Mandi Solomon DO Work Phone: [facility] 09-10-2024 09:57-0400 Body height 162.6 cm Mandi Solmoon DO Work Phone: [facility] 09-10-2024 09:57-0400 Body mass index (BMI) [Ratio] 24.03 kg/m2 Mandi Srinivas DO Work Phone: [facility] 09-10-2024 09:57-0400 Body weight 63.5 kg Mandi Solomon DO Work Phone: [facility] 08-12-2024 13:58-0500 Diastolic blood pressure 78 mm[Hg] Jeny 1 [facility] 08-12-2024 13:58-0500 Heart rate 73 /min Jeny 1 [facility] 08-12-2024 13:58-0500 Systolic blood pressure 128 mm[Hg] Jeny 1 [facility] 08-11-2024 10:19-0500 Body mass index (BMI) [Ratio] 24.03 kg/m2 Gordon Mendoza [employer]CR[employer]ER Work Phone: [facility] 08-11-2024 10:19-0500 Body weight 63.5 kg Gordon Mendoza [employer]CR[employer] Work Phone: [facility] 08-11-2024 10:19-0500 Diastolic blood pressure 76 mm[Hg] Gordon Mendoza [employer]CR[employer] P[employer]ER Work Phone: [facility] 08-11-2024 10:19-0500 Heart rate 93 /min Gordon Mendoza [employer]CR[employer] Work Phone: [facility] 08-11-2024 10:19-0500 SaO2% (BldA) [Mass fraction] 96 % Gordon Mendoza [employer]CR[employer]E P[employer]ER Work Phone: [facility] 08-11-2024 10:19-0500 Systolic blood pressure 124 mm[Hg] Gordon Mendoza [employer]CR[employer]E P[employer]ER Work Phone: [facility] 08-05-2024 10:37-0500 Body mass index (BMI) [Ratio] 23.86 kg/m2 Ava Dumont MD Work Phone: [facility] 08-05-2024 10:37-0500 Body weight 63.05 kg Ava Dumont MD Work Phone: [facility] 08-05-2024 10:37-0500 Diastolic blood pressure 69 mm[Hg] Ava Dumont MD Work Phone: [facility] 08-05-2024 10:37-0500 Heart rate 78 /min Ava Dumont MD Work Phone: [facility] 08-05-2024 10:37-0500 Systolic blood pressure 161 mm[Hg] Ava Dumont MD Work Phone: [facility] 07-26-2024 09:30-0500 Body height 162.6 cm Cheryl Risaliti [employer]CR[employer]ER Work Phone: [facility] 07-26-2024 09:30-0500 Body mass index (BMI) [Ratio] 24.29 kg/m2 Cheryl Risaliti [employer]CR[employer] Work Phone: [facility] 07-26-2024 09:30-0500 Body weight 64.18 kg Cheryl Risaliti [employer]CR[employer]E [employer]ER Work Phone: [facility] 07-26-2024 09:30-0500 Diastolic blood pressure 82 mm[Hg] Cheryl Risaliti [employer]CR[employer]ER Work Phone: [facility] 07-26-2024 09:30-0500 Heart rate 81 /min Cheryl Sylviaaliti [employer]CR[employer]ER Work Phone: [facility] 07-26-2024 09:30-0500 SaO2% (BldA) [Mass fraction] 99 % Cheryl Risaliti [employer]CR[employer]E [employer]ER Work Phone: [facility] 07-26-2024 09:30-0500 Systolic blood pressure 140 mm[Hg] Cheryl Risaliti [employer]CR[employer]E P[employer]ER Work Phone: [facility] 07-22-2024 15:00-0500 Body height 162.56 cm Tamia France MD Work Phone: [facility] 07-22-2024 15:00-0500 Body temperature 98.2 [degF] Tamia France MD Work Phone: [facility] 07-22-2024 15:00-0500 Body weight 58.96 kg Tamia France MD Work Phone: [facility] 07-22-2024 15:00-0500 Diastolic blood pressure 79 mm[Hg] Tamia France MD Work Phone: [facility] 07-22-2024 15:00-0500 Heart rate 79 /min Tamia France MD Work Phone: [facility] 07-22-2024 15:00-0500 Respiratory rate 23 /min Tamia France MD Work Phone: [facility] 07-22-2024 15:00-0500 SaO2% (BldA) [Mass fraction] 95 % Tamia France MD Work Phone: [facility] 07-22-2024 15:00-0500 Systolic blood pressure 173 mm[Hg] Tamia France MD Work Phone: [facility] 07-22-2024 09:42-0500 Diastolic blood pressure 80 mm[Hg] Kimmie Beaver MD Work Phone: [facility] 07-22-2024 09:42-0500 Systolic blood pressure 122 mm[Hg] Kimmie Beaver MD Work Phone: [facility] 07-22-2024 09:38-0500 Body height 162.6 cm Kimmie Beaver MD Work Phone: [facility] 07-22-2024 09:38-0500 Body mass index (BMI) [Ratio] 24.07 kg/m2 Kimmie Beaver MD Work Phone: [facility] 07-22-2024 09:38-0500 Body weight 63.59 kg Kimmie Beaver MD Work Phone: [facility] 07-22-2024 09:38-0500 Heart rate 77 /min Kimmie Beaver MD Work Phone: [facility] 07-12-2024 18:34-0500 Diastolic blood pressure 76 mm[Hg] Tamia France MD Work Phone: [facility] 07-12-2024 18:34-0500 Heart rate 82 /min Tamia France MD Work Phone: [facility] 07-12-2024 18:34-0500 Respiratory rate 20 /min Tamia France MD Work Phone: [facility] 07-12-2024 18:34-0500 SaO2% (BldA) [Mass fraction] 99 % Tamia France MD Work Phone: [facility] 07-12-2024 18:34-0500 Systolic blood pressure 146 mm[Hg] Tamia France MD Work Phone: [facility] 07-12-2024 15:55-0500 Body height 162.56 cm Tamia France MD Work Phone: [facility] 07-12-2024 15:55-0500 Body temperature 98.5 [degF] Tamia France MD Work Phone: [facility] 07-12-2024 15:55-0500 Body weight 58.96 kg Tamia France MD Work Phone: [facility] 06-23-2024 13:57-0500 Body height 162.6 cm Cheryl Risaliti [employer]CR[employer]E [employer]ER Work Phone: [facility] 06-23-2024 13:57-0500 Body mass index (BMI) [Ratio] 24.03 kg/m2 Cheryl Risaliti [employer]CR[employer]E [employer]ER Work Phone: [facility] 06-23-2024 13:57-0500 Body weight 63.5 kg Cheryl Risaliti [employer]CR[employer]ER Work Phone: [facility] 06-23-2024 13:57-0500 Diastolic blood pressure 72 mm[Hg] Cheryl Risaliti [employer]CR[employer]ER Work Phone: [facility] 06-23-2024 13:57-0500 Heart rate 73 /min Cheryl Risaliti [employer]CR[employer] Work Phone: [facility] 06-23-2024 13:57-0500 SaO2% (BldA) [Mass fraction] 98 % Cheryl Risaliti [employer]CR[employer]E P[employer]ER Work Phone: [facility] 06-23-2024 13:57-0500 Systolic blood pressure 134 mm[Hg] Cheryl Risaliti [employer]CR[employer]E P[employer]ER Work Phone: [facility] 06-02-2024 06:03-0500 Body temperature 97.8 [degF] Tamia France MD Work Phone: [facility] 06-02-2024 06:03-0500 Diastolic blood pressure 74 mm[Hg] Tamia France MD Work Phone: [facility] 06-02-2024 06:03-0500 Heart rate 72 /min Tamia France MD Work Phone: [facility] 06-02-2024 06:03-0500 Respiratory rate 16 /min Tamia France MD Work Phone: [facility] 06-02-2024 06:03-0500 SaO2% (BldA) [Mass fraction] 97 % Tamia France MD Work Phone: [facility] 06-02-2024 06:03-0500 Systolic blood pressure 138 mm[Hg] Tamia France MD Work Phone: [facility] 06-01-2024 11:35-0500 Body height 162.56 cm Tamia France MD Work Phone: [facility] 05-30-2024 06:38-0500 Body weight 71.3 kg Tamia France MD Work Phone: [facility] 04-24-2024 17:05-0500 Diastolic blood pressure 79 mm[Hg] Trevor Yange [facility] 04-24-2024 17:05-0500 Heart rate 71 /min Trevor Kelli [facility] 04-24-2024 17:05-0500 Mean blood pressure 111 mm[Hg] Trevor Kelli [facility] 04-24-2024 17:05-0500 Respiratory rate 20 /min Trevor Yange [facility] 04-24-2024 17:05-0500 SaO2% (BldA) [Mass fraction] 98 % Trevor Kelli [facility] 04-24-2024 17:05-0500 Systolic blood pressure 175 mm[Hg] Trevor Kelli [facility] 04-24-2024 16:50-0500 Diastolic blood pressure 78 mm[Hg] Trevor Yange [facility] 04-24-2024 16:50-0500 Heart rate 70 /min Trevor Kelli [facility] 04-24-2024 16:50-0500 Mean blood pressure 109 mm[Hg] Trevor Kelli [facility] 04-24-2024 16:50-0500 Respiratory rate 18 /min Trevor Kelli [facility] 04-24-2024 16:50-0500 SaO2% (BldA) [Mass fraction] 99 % Trevor Biswas [facility] 04-24-2024 16:50-0500 Systolic blood pressure 171 mm[Hg] Trevor Biswas [facility] 04-24-2024 16:35-0500 Diastolic blood pressure 81 mm[Hg] Trevor Biswas [facility] 04-24-2024 16:35-0500 Heart rate 77 /min Trevor Biswas [facility] 04-24-2024 16:35-0500 Mean blood pressure 112 mm[Hg] Trevor Biswas [facility] 04-24-2024 16:35-0500 Respiratory rate 18 /min Trevor Biswas [facility] 04-24-2024 16:35-0500 SaO2% (BldA) [Mass fraction] 100 % Trevor Biswas [facility] 04-24-2024 16:35-0500 Systolic blood pressure 175 mm[Hg] Trevor Biswas [facility] 04-24-2024 15:23-0500 gluc 104 mg/dL Trevor Biswas [facility] 04-24-2024 15:16-0500 Body temperature 97.16 [degF] Trevor Biswas [facility] 04-09-2024 11:28-0400 Diastolic blood pressure 69 mm[Hg] Tamia France MD Work Phone: [facility] 04-09-2024 11:28-0400 Heart rate 80 /min Tamia France MD Work Phone: [facility] 04-09-2024 11:28-0400 Systolic blood pressure 140 mm[Hg] Tamia France MD Work Phone: [facility] 04-02-2024 13:13-0400 Diastolic blood pressure 80 mm[Hg] Marilou Heathion [employer] Work Phone: [facility] 04-02-2024 13:13-0400 Heart rate 78 /min Mariloutana Heathion [employer]CR[employer] Work Phone: [facility] 04-02-2024 13:13-0400 SaO2% (BldA) [Mass fraction] 97 % Marilou Heathion [employer]CR[employer]E [employer]ER Work Phone: [facility] 04-02-2024 13:13-0400 Systolic blood pressure 148 mm[Hg] Marilou Heathion [employer]CR[employer]E [employer] Work Phone: [facility] 03-11-2024 14:43-0400 Body mass index (BMI) [Ratio] 24.89 kg/m2 Eaglejany Sharif [employer]CR[employer]E P[employer]ER Work Phone: [facility] 03-11-2024 14:43-0400 Body temperature 97.3 [degF] Eagle Sharif [employer]CRETE P[employer]ER Work Phone: [facility] 03-11-2024 14:43-0400 Body weight 65.77 kg Eagle Sharif [employer]CR[employer]E P[employer]ER Work Phone: [facility] 03-11-2024 14:43-0400 Diastolic blood pressure 80 mm[Hg] Eagle Marcio [employer]CR[employer]ER Work Phone: [facility] 03-11-2024 14:43-0400 Heart rate 81 /min Eagle Sharif [employer]CR[employer]ER Work Phone: [facility] 03-11-2024 14:43-0400 SaO2% (BldA) [Mass fraction] 99 % Eagle Sharif [employer]CR[employer]E P[employer]ER Work Phone: [facility] 03-11-2024 14:43-0400 Systolic blood pressure 130 mm[Hg] Eagle Sharif [employer]CRETE P[employer]ER Work Phone: [facility] 02-24-2024 09:13-0400 Diastolic blood pressure 62 mm[Hg] MD Tamia France Work Phone: [facility] 02-24-2024 09:13-0400 Heart rate 76 /min MD Tamia France Work Phone: [facility] 02-24-2024 09:13-0400 Respiratory rate 18 /min MD Tamia France Work Phone: [facility] 02-24-2024 09:13-0400 SaO2% (BldA) [Mass fraction] 99 % MD Tamia France Work Phone: [facility] 02-24-2024 09:13-0400 Systolic blood pressure 123 mm[Hg] MD Tamia France Work Phone: [facility] 02-24-2024 08:33-0400 Inhaled oxygen flow rate 3 L/min MD Tamia France Work Phone: [facility] 02-24-2024 07:38-0400 Body height 162.56 cm MD Tamia France Work Phone: [facility] 02-24-2024 07:38-0400 Body weight 65.31 kg MD Tamia France Work Phone: [facility] 02-04-2024 10:29-0400 Body height 162.6 cm Tony Sapp MD Work Phone: [facility] 02-04-2024 10:29-0400 Body mass index (BMI) [Ratio] 24.37 kg/m2 Tony Sapp MD Work Phone: [facility] 02-04-2024 10:29-0400 Body weight 64.41 kg Tony Sapp MD Work Phone: [facility] 02-04-2024 10:29-0400 Diastolic blood pressure 64 mm[Hg] Tony Sapp MD Work Phone: [facility] 02-04-2024 10:29-0400 Systolic blood pressure 130 mm[Hg] Tony Sapp MD Work Phone: [facility] 12-24-2023 10:10-0400 Diastolic blood pressure 50 mm[Hg] MD Tamia France Work Phone: [facility] 12-24-2023 10:10-0400 Heart rate 71 /min MD Tamia France Work Phone: [facility] 12-24-2023 10:10-0400 Respiratory rate 20 /min MD Tamia France Work Phone: [facility] 12-24-2023 10:10-0400 SaO2% (BldA) [Mass fraction] 100 % MD Tamia France Work Phone: [facility] 12-24-2023 10:10-0400 Systolic blood pressure 109 mm[Hg] MD Tamia France Work Phone: [facility] 12-24-2023 07:54-0400 Body height 162.56 cm MD Tamia France Work Phone: [facility] 12-24-2023 07:54-0400 Body weight 67.13 kg MD Tamia France Work Phone: [facility] 12-08-2023 13:36-0400 Body height 162.56 cm MD Tamia France Work Phone: [facility] 12-08-2023 13:36-0400 Body mass index (BMI) [Ratio] 25.4 kg/m2 MD Tamia France Work Phone: [facility] 12-08-2023 13:36-0400 Body weight 67.13 kg MD Tamia France Work Phone: [facility] 10-07-2023 08:38-0400 Diastolic blood pressure 52 mm[Hg] MD Tamia France Work Phone: [facility] 10-07-2023 08:38-0400 Heart rate 74 /min MD Tamia France Work Phone: [facility] 10-07-2023 08:38-0400 Respiratory rate 18 /min MD Tamia France Work Phone: [facility] 10-07-2023 08:38-0400 SaO2% (BldA) [Mass fraction] 98 % MD Tamia France Work Phone: [facility] 10-07-2023 08:38-0400 Systolic blood pressure 116 mm[Hg] MD Tamia France Work Phone: [facility] 10-07-2023 07:47-0400 Inhaled oxygen flow rate 3 L/min MD Tamia France Work Phone: [facility] 10-07-2023 07:07-0400 Body height 162.56 cm MD Tamia France Work Phone: [facility] 10-07-2023 07:07-0400 Body weight 0.15 kg MD Tamia France Work Phone: [facility] 09-10-2023 13:47-0400 Diastolic blood pressure 70 mm[Hg] MD Tamia France Work Phone: [facility] 09-10-2023 13:47-0400 Heart rate 92 /min MD Tamia France Work Phone: [facility] 09-10-2023 13:47-0400 Systolic blood pressure 144 mm[Hg] MD Tamia France Work Phone: [facility] 07-27-2023 12:09-0500 Body mass index (BMI) [Ratio] 27.12 kg/m2 George Hogue DO Work Phone: [facility] 07-27-2023 12:09-0500 Body temperature 97.5 [degF] George Hogue DO Work Phone: [facility] 07-27-2023 12:09-0500 Body weight 71.67 kg Geogre Hogue DO Work Phone: [facility] 07-27-2023 12:09-0500 Diastolic blood pressure 80 mm[Hg] George Hogue DO Work Phone: [facility] 07-27-2023 12:09-0500 Heart rate 97 /min George Hogue DO Work Phone: [facility] 07-27-2023 12:09-0500 SaO2% (BldA) [Mass fraction] 99 % George Hogue DO Work Phone: [facility] 07-27-2023 12:09-0500 Systolic blood pressure 116 mm[Hg] George Hogue DO Work Phone: [facility] 03-18-2023 10:36-0400 Diastolic blood pressure 64 mm[Hg] MD Tamia France Work Phone: [facility] 03-18-2023 10:36-0400 Heart rate 68 /min MD Tamia France Work Phone: [facility] 03-18-2023 10:36-0400 Respiratory rate 16 /min MD Tamia France Work Phone: [facility] 03-18-2023 10:36-0400 SaO2% (BldA) [Mass fraction] 97 % MD Tamia France Work Phone: [facility] 03-18-2023 10:36-0400 Systolic blood pressure 132 mm[Hg] MD Tamia France Work Phone: [facility] 03-18-2023 09:56-0400 Inhaled oxygen flow rate 3 L/min MD Tamia France Work Phone: [facility] 03-18-2023 09:31-0400 Body height 162.56 cm MD Tamia France Work Phone: [facility] 03-18-2023 09:31-0400 Body weight 72.12 kg MD Tamia France Work Phone: [facility] 03-12-2023 13:34-0400 Diastolic blood pressure 87 mm[Hg] MD Tamia France Work Phone: [facility] 03-12-2023 13:34-0400 Heart rate 65 /min MD Tamia France Work Phone: [facility] 03-12-2023 13:34-0400 Systolic blood pressure 144 mm[Hg] MD Tamia France Work Phone: [facility] 01-02-2023 10:45-0400 Body height 162.56 cm Trip Erniquez Other [employer] Other 01-02-2023 10:45-0400 Body mass index (BMI) [Ratio] 27.12 kg/m2 Trip Enriquez Other [employer] Other 01-02-2023 10:45-0400 Body weight 71.67 kg Trip Enriquez Other [employer] Other 04-09-2022 08:30-0400 Diastolic blood pressure 65 mm[Hg] MD Tamia France Work Phone: [facility] 04-09-2022 08:30-0400 Heart rate 78 /min MD Tamia France Work Phone: [facility] 04-09-2022 08:30-0400 Respiratory rate 16 /min MD Tamia France Work Phone: [facility] 04-09-2022 08:30-0400 SaO2% (BldA) [Mass fraction] 98 % MD Tamia France Work Phone: [facility] 04-09-2022 08:30-0400 Systolic blood pressure 111 mm[Hg] MD Tamia France Work Phone: [facility] 04-09-2022 07:44-0400 Inhaled oxygen flow rate 3 L/min MD Tamia France Work Phone: [facility] 04-09-2022 06:44-0400 Body height 162.56 cm MD Tamia France Work Phone: [facility] 04-09-2022 06:44-0400 Body weight 72.12 kg MD Tamia France Work Phone: [facility] 03-26-2022 08:20-0400 Diastolic blood pressure 78 mm[Hg] MD Tamia France Work Phone: [facility] 03-26-2022 08:20-0400 Heart rate 76 /min MD Tamia France Work Phone: [facility] 03-26-2022 08:20-0400 Respiratory rate 16 /min MD Tamia France Work Phone: [facility] 03-26-2022 08:20-0400 SaO2% (BldA) [Mass fraction] 96 % MD Tamia France Work Phone: [facility] 03-26-2022 08:20-0400 Systolic blood pressure 125 mm[Hg] MD Tamia France Work Phone: [facility] 03-26-2022 07:40-0400 Inhaled oxygen flow rate 3 L/min MD Tamia France Work Phone: [facility] 03-26-2022 06:49-0400 Body height 162.56 cm MD Tamia France Work Phone: [facility] 03-26-2022 06:49-0400 Body weight 72.57 kg MD Tamia France Work Phone: [facility] 11-06-2021 14:00-0400 Body height 162.56 cm Trip Enriquez Other [employer] Other 11-06-2021 14:00-0400 Body mass index (BMI) [Ratio] 26.43 kg/m2 Trip Enriquez Other [employer] Other 11-06-2021 14:00-0400 Body weight 69.85 kg Trip Enriquez Other [employer] Other 05-28-2021 11:15-0500 Body height 162.56 cm Trip Enriquez Other [employer] Other 05-28-2021 11:15-0500 Body mass index (BMI) [Ratio] 27.8 kg/m2 Trip Enriquez Other [employer] Other 05-28-2021 11:[id number] Body weight 73.48 kg Trip Enriquez Other [employer] Other Encounters Encounter Date Encounter Type Care Provider Facility Start: 01-27-2025 End: 01-27-2025 ambulatory [facility] Start: 01-14-2025 End: 01-14-2025 Office outpatient visit 25 minutes Cheryl Alicea [employer]CR[employer]E [employer]ER Work Phone: [facility] Comment on above: Moderate major depre ssion (HCC) (Primary Dx); History of CVA (cerebrovascular accident) Start: 01-14-2025 End: 01-14-2025 ambulatory CHERYL ALICEA Not Available Start: 01-12-2025 ambulatory [facility] Facility:[facility] Start: 01-11-2025 End: 01-11-2025 ambulatory TREVOR LANCASTER Facility:[facility] Start: 01-11-2025 End: 01-11-2025 Patient encounter procedure Trevor Slade DPM Work Phone: Podiatry Comment on above: History of CVA (cere brovascular accident) (Primary Dx); Left foot drop; Foot contracture, left; Hemiparesis of left nondominant side, unspecified hemiparesis etiology (HCC); Difficulty walking Start: 01-07-2025 End: 01-10-2025 Refill Umm Otoole [facility] Lilian [facility] Comment on above: 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 (Primary Dx); Aftercare following right hip joint replacement surgery Start: 01-06-2025 End: 01-06-2025 Refill Zenaida Frazier LPN [facility] Comment on above: Generalized anxiety disorder Start: 12-28-2024 End: 12-28-2024 Office outpatient visit 25 minutes Cheryl Alicea [employer] Work Phone: [facility] Comment on above: Cervicalgia (Primary Dx); Primary osteoarthritis involving multiple joints Start: 12-28-2024 End: 12-28-2024 ambulatory CHERYL ALICEA Not Available Start: 12-21-2024 End: 12-29-2024 Refill Trevor Lancaster DPM Work Phone: Orthopaedics Comment on above: Refill Request Start: 12-01-2024 End: 12-10-2024 [facility] Start: 11-30-2024 End: 11-30-2024 Patient encounter procedure Cast Alejandro Alcala Work Phone: Orthopaedics Comment on above: Post-operative state (Primary Dx) Start: 11-30-2024 End: 11-30-2024 ambulatory TREVOR LANCASTER Facility:[facility] Start: 11-28-2024 End: 11-30-2024 ambulatory Trevor Lancaster DPM Work Phone: Orthopaedics Comment on above: Pain Start: 11-25-2024 End: 11-30-2024 Clinisync Result Encounter Generic External Data Provider [facility] External Department Unsolicited Start: 11-25-2024 End: 11-30-2024 Clinisync Result Encounter Generic External Data Provider [facility] External Department Unsolicited Start: 11-25-2024 End: 11-25-2024 Subsequent hospital visit by physician [facility] Work Phone: Radiology Comment on above: Post-operative state [Z98.890] Start: 11-25-2024 End: 11-25-2024 Patient encounter procedure Tree Menon RT(R) Radiology Comment on above: Post-operative state (Primary Dx) Start: 11-25-2024 End: 11-25-2024 ambulatory Tree Menon RT(R) Radiology Comment on above: Radiology XR Start: 11-11-2024 End: 11-23-2024 Refill Trevor Lancaster DPM Work Phone: Orthopaedics Comment on above: Refill Request Start: 11-10-2024 End: 11-10-2024 Patient encounter procedure Trevor Lancaster DPM Work Phone: Orthopaedics Comment on above: Post-operative state (Primary Dx) Start: 11-10-2024 End: 11-10-2024 ambulatory SELF Facility:[facility] Start: 11-02-2024 End: 11-02-2024 Refill Amber Crowder LPN [facility] Comment on above: Generalized anxiety disorder (CMS/HCC) Start: 10-28-2024 End: 10-29-2024 Telephone encounter Trevor Lancaster DPM Work Phone: Podiatry Comment on above: Patient Update - David n Start: 10-26-2024 End: 10-26-2024 Patient encounter procedure Trevor Lancaster DPM Work Phone: Podiatry Comment on above: Post-operative state (Primary Dx) Start: 10-26-2024 End: 10-26-2024 ambulatory SELF Facility:[facility] Start: 10-20-2024 End: 10-25-2024 Clinisync Result Encounter Generic External Data Provider [facility] External Department Unsolicited Start: 10-20-2024 End: 10-25-2024 Clinisync Result Encounter Generic External Data Provider [facility] External Department Unsolicited Start: 10-20-2024 End: 10-20-2024 ambulatory TREVOR LANCASTER Facility:[facility] Start: 10-14-2024 End: 10-15-2024 Refill Wesley Thompson MA [facility] IM Comment on above: Primary osteoarthrit is involving multiple joints Start: 10-08-2024 ambulatory [facility] Facility:[facility] Start: 10-06-2024 End: 10-06-2024 Admission to establishment Pac [place] 2 Work Phone: Pre Anesthesia Start: 10-06-2024 End: 10-06-2024 Anesthesia consultation Pac [place] 2 Work Phone: Pre Anesthesia Comment on above: Pre-op evaluation (P rimary Dx); Former smoker; History of CVA (cerebrovascular accident); History of gastric bypass; Depression, unspecified depression type Start: 10-06-2024 End: 10-06-2024 Preprocedural examination done Pac [place] 2 Work Phone: [facility] Work Phone: Start: 10-06-2024 End: 10-06-2024 ambulatory TREVOR LANCASTER Facility:[facility] Start: 10-06-2024 Encounter for other preprocedural examination TREVOR LANCASTER [facility] Start: 10-05-2024 End: 10-05-2024 Orders Only Tamia France MD Work Phone: [facility] External Department Unsolicited Start: 10-04-2024 End: 10-04-2024 ambulatory Tamia France Facility:[facility] Start: 09-28-2024 End: 09-28-2024 Patient encounter procedure Mandi Solomon DO Work Phone: [facility] NB ORTHO Comment on above: Pain of right thumb (Primary Dx); Localized osteoarthritis of right shoulder Start: 09-28-2024 End: 09-29-2024 Refill Wesley Thompson MA [facility] Comment on above: Generalized anxiety disorder (CMS/HCC) Start: 09-27-2024 End: 09-27-2024 Orders Only Trevor Lancaster DPM Work Phone: Orthopaedics Comment on above: Hemiparesis of left nondominant side as late effect of cerebrovascular disease, unspecified cerebrovascular disease type (HCC) (Primary Dx); Foot contracture, left; Gastrocnemius equinus of left lower extremity; Metatarsus adductus of left foot; Difficulty walking; Tailor's bunion of left foot Start: 09-24-2024 End: 09-24-2024 Clinisync Result Encounter Generic External Data Provider N[facility]S External Department Unsolicited Start: 09-24-2024 End: 09-24-2024 Clinisync Result Encounter Generic External Data Provider NOMS External Department Unsolicited Start: 09-24-2024 End: 09-24-2024 Telephone encounter Trevor Lancaster DPЕлена Work Phone: Orthopaedics Comment on above: Surgical Followup Start: 09-24-2024 End: 09-24-2024 Patient encounter procedure Fernie Rios RT(R) Radiology Comment on above: Hemiparesis of left nondominant side as late effect of cerebrovascular disease, unspecified cerebrovascular disease type (HCC) (Primary Dx); Foot contracture, left; Gastrocnemius equinus of left lower extremity; Metatarsus adductus of left foot; Difficulty walking; Tailor's bunion of left foot Start: 09-24-2024 End: 09-24-2024 ambulatory Fernie Rios RT(R) Radiology Comment on above: Radiology XR Start: 09-24-2024 End: 09-24-2024 Subsequent hospital visit by physician Lukas Ny 1 Work Phone: Radiology Comment on above: Pain [R52] Start: 09-21-2024 End: 09-21-2024 ambulatory MANDI SOLOMON Not Available Start: 09-20-2024 End: 09-20-2024 Telephone encounter Amber Crowder LPN [facility] IM Comment on above: Med Refill Start: 09-10-2024 End: 09-10-2024 Bamboo flowsheet Mandi Solomon DO Work Phone: [facility] ORTHO Start: 09-10-2024 End: 09-10-2024 Bamboo flowsheet Mandi Solomon DO Work Phone: [facility] ORTHO Start: 09-10-2024 End: 09-10-2024 Patient encounter procedure Mandi Solomon DO Work Phone: [facility] Comment on above: Pain of right thumb (Primary Dx); Localized osteoarthritis of right shoulder Start: 09-10-2024 End: 09-10-2024 ambulatory MANDI SOLOMON Not Available Start: 08-25-2024 End: 08-25-2024 ambulatory CHERYL R NIXON Not Available Start: 08-17-2024 End: 08-17-2024 Bamboo flowsandreea Solomon DO Work Phone: [facility] ORTHO Start: 08-17-2024 End: 08-17-2024 Bamboo flowsheet Mandi Solomon DO Work Phone: [facility] ORTHO Start: 08-17-2024 End: 08-17-2024 ambulatory MANDI SOLOMON Not Available Start: 08-12-2024 End: 08-12-2024 Clinisync Result Encounter Generic External Data Provider NOMS External Department Unsolicited Start: 08-12-2024 End: 08-12-2024 Clinisync Result Encounter Generic External Data Provider NOMS External Department Unsolicited Start: 08-12-2024 End: 08-12-2024 ambulatory [address] [facility] Start: 08-12-2024 End: 08-12-2024 Subsequent hospital visit by physician Jeny Queen [place] [facility] Comment on above: Abnormal EKG; Cerebrovascular accident (CVA), unspecified mechanism (Multi); History of TIA (transient ischemic attack); Mixed hyperlipidemia; BMI 24.0-24.9, adult Start: 08-11-2024 End: 08-11-2024 Office outpatient visit 25 minutes Gordon Mendoza CONCRETE POURER Work Phone: [facility] Comment on above: Fall, subsequent enc ounter (Primary Dx); Acute pain of right shoulder; Pain in right upper arm; Localized swelling on right hand; Neck pain; Cervical spondylosis; Limited range of motion (ROM) of shoulder Start: 08-11-2024 End: 08-11-2024 ambulatory GORDON MENDOZA Not Available Start: 08-05-2024 End: 08-05-2024 Office outpatient visit 25 minutes Ava Dumont MD Work Phone: [facility] Comment on above: Cerebrovascular acci dent (CVA), unspecified mechanism (CMS- HCC) (Primary Dx) Start: 08-05-2024 End: 08-05-2024 ambulatory [facility] Start: 07-30-2024 End: 07-30-2024 Office outpatient visit 15 minutes Cheryl Alicea CONCRETE POURER Work Phone: [facility] Comment on above: Visit for suture rem oval (Primary Dx); Laceration of scalp without foreign body, subsequent encounter Start: 07-30-2024 End: 07-30-2024 ambulatory CHERYL R RISKYLAH Not Available Start: 07-26-2024 End: 07-26-2024 Office outpatient visit 25 minutes Cheryl Alicea CONCRETE POURER Work Phone: [facility] Comment on above: Pure hypercholestero lemia (CMS/HCC) (Primary Dx); History of CVA (cerebrovascular accident); Moderate major depression (CMS/HCC); Generalized anxiety disorder (CMS/HCC); Polymyalgia rheumatica (CMS/HCC); Primary osteoarthritis involving multiple joints; Age-related osteoporosis without current pathological fracture (CMS/HCC); History of bariatric surgery; Medication management Start: 07-26-2024 End: 07-26-2024 ambulatory CHERYL ALICEA Not Available Start: 07-22-2024 End: 07-22-2024 Emergency department patient visit Tamia France MD Work Phone: [facility] Work Phone: Start: 07-22-2024 End: 07-22-2024 Office consultation new/estab patient 60 min Kimmie Beaver MD Work Phone: [facility] Comment on above: High risk medication use (Primary Dx); Abnormal EKG; Cerebrovascular accident (CVA), unspecified mechanism (Multi); History of TIA (transient ischemic attack); Mixed hyperlipidemia; Polymyalgia rheumatica (Multi); BMI 24.0-24.9, adult; Former smoker Start: 07-22-2024 End: 07-22-2024 Refill Zenaida Frazier LPN [facility] Comment on above: Generalized anxiety disorder (CMS/HCC) Start: 07-21-2024 Registered Recurring Tamia serna MD Work Phone: [facility] Start: 07-12-2024 End: 07-12-2024 Emergency department patient visit Tamia France MD Work Phone: [facility] Work Phone: Start: 07-12-2024 Registered Recurring Tamia serna MD Work Phone: [facility] Start: 06-28-2024 End: 06-29-2024 Orders Only Lauren Leija [facility] Comment on above: Cerebrovascular acci dent (CVA), unspecified mechanism (CMS- HCC); TIA (transient ischemic attack) Start: 06-23-2024 End: 06-23-2024 Office outpatient visit 25 minutes Cheryl Alicea NP Work Phone: [facility] Comment on above: Acute right MCA stro ke (CMS/HCC) (Primary Dx); Impaired mobility; Major depressive disorder, single episode, moderate (HCC) (CMS/HCC); Dysphagia, unspecified type; Generalized anxiety disorder (CMS/HCC); Left hemiplegia (CMS/HCC); Neurogenic bladder Start: 06-23-2024 End: 06-27-2024 Orders Only Cheryl Alicea CONCRETE POURER Work Phone: [facility] External Department Unsolicited Start: 06-23-2024 End: 06-23-2024 ambulatory CHERYL ALICEA Not Available Start: 06-22-2024 Registered Recurring Tamia serna MD Work Phone: [facility] [facility] Start: 06-02-2024 End: 06-02-2024 ambulatory Tamia France MD Work Phone: [facility] Work Phone: Start: 06-02-2024 End: 06-02-2024 Patient encounter procedure Tamia France MD Work Phone: [facility]Electro[facility] Work Phone: Start: 05-30-2024 Non-patient / Non-visit Tamia France MD Work Phone: [facility] Work Phone: Start: 05-24-2024 End: 05-24-2024 Telephone encounter Henna [facility] Comment on above: reschedule appt Start: 05-21-2024 Non-patient / Non-visit Tamia France MD Work Phone: [facility] Work Phone: Start: 05-17-2024 End: 05-19-2024 Refill Lauren Han [facility] Comment on above: TIA (transient ische seth attack) (Primary Dx) Start: 2024 Non-patient / Non-visit Tamia France MD Work Phone: [facility] Work Phone: Start: 05-07-2024 Non-patient / Non-visit Tamia France MD Work Phone: [facility] Work Phone: Start: 04-30-2024 Non-patient / Non-visit Tamia France MD Work Phone: [facility] Work Phone: Start: 04-29-2024 End: 06-02-2024 Evaluation and management of inpatient Tamia France MD Work Phone: [facility] Work Phone: Start: 04-26-2024 ambulatory [facility] Start: 04-25-2024 End: 04-29-2024 Evaluation and management of inpatient [facility] Start: 04-25-2024 ambulatory [facility] Start: 04-24-2024 End: 04-24-2024 ambulatory UNKNOWN PROVIDER [facility] Start: 04-24-2024 End: 04-29-2024 Evaluation and management of inpatient TREVIN [facility] Start: 04-24-2024 End: 04-29-2024 Evaluation and management of inpatient GONZALO Gonzalez [facility] Start: 04-24-2024 End: 04-24-2024 Emergency department patient visit Trevor Biswas [facility] Start: 04-19-2024 End: 04-19-2024 Bamboo flowsheet Daniela Hurtado PT [facility] Start: 04-19-2024 End: 04-19-2024 Bamboo flowsheet Daniela Hurtado PT [facility] Start: 04-19-2024 End: 04-19-2024 ambulatory Daniela Hurtado PT [facility] Comment on above: Acute pain of left s houlder (Primary Dx); Acute pain of right shoulder Start: 04-15-2024 End: 04-16-2024 Refill Wesley Jay DC [facility] Comment on above: Generalized anxiety disorder (CMS/HCC) Start: 04-09-2024 Registered Recurring Tamia serna MD Work Phone: [facility] Work Phone: Start: 04-02-2024 End: 04-02-2024 Office outpatient visit 15 minutes Marilou Medina CONCRETE POURER Work Phone: [facility] IM Comment on above: Acute pain of right shoulder (Primary Dx); Acute pain of left shoulder; Spasm of muscle of lower back; Polymyalgia rheumatica (CMS/HCC) Start: 04-02-2024 End: 04-02-2024 ambulatory MARILOU MEDINA Not Available Start: 03-11-2024 End: 03-11-2024 Office outpatient visit 15 minutes Eagle Sharif CONCRETE POURER Work Phone: [facility] IM Comment on above: Viral conjunctivitis (Primary Dx) Start: 03-11-2024 End: 03-11-2024 ambulatory TAMIA FRANCE Not Available Start: 03-10-2024 End: 03-10-2024 ambulatory MD Tamia France Work Phone: [facility] Work Phone: Start: 03-10-2024 End: 03-10-2024 Patient encounter procedure MD Tamia France Work Phone: [facility] Work Phone: Start: 02-24-2024 Non-patient / Non-visit MD Adarsh France Work Phone: [facility] Work Phone: Start: 02-24-2024 End: 02-24-2024 Admission to same day surgery center MD Tamia France Work Phone: [facility] Work Phone: Start: 02-24-2024 End: 02-24-2024 ambulatory MD Tamia France Work Phone: [facility] Work Phone: Start: 02-17-2024 End: 02-17-2024 Refill Zenaida Frazier ASSOCIATE PROFESSOR OF BIOLOGY [facility] Comment on above: Generalized anxiety disorder (CMS/HCC) Patient Education Start: 02-05-2024 End: 02-05-2024 ambulatory CHERYL R RISALITI Not Available Start: 02-04-2024 End: 02-04-2024 Bamboo flowsheet Tony Sapp MD Work Phone: [facility] Start: 02-04-2024 End: 02-04-2024 Bamboo flowsheet Tony Sapp MD Work Phone: [facility] Start: 02-04-2024 End: 02-04-2024 Office outpatient visit 25 minutes Tony Sapp MD Work Phone: [facility] NEUR Comment on above: Cerebral infarction due to thrombosis of left middle cerebral artery (CMS/HCC) Start: 02-04-2024 End: 02-04-2024 ambulatory TOYN SAPP Not Available Start: 02-02-2024 End: 02-02-2024 ambulatory MD Tamia France Work Phone: [facility] Work Phone: Start: 02-02-2024 End: 02-02-2024 Patient encounter procedure MD Tamia France Work Phone: [facility] Work Phone: Start: 01-19-2024 End: 01-19-2024 ambulatory CHERYL R RISALITI Not Available Start: 01-19-2024 End: 01-19-2024 ambulatory CHERYL R RISALITI Not Available Start: 01-05-2024 End: 01-05-2024 ambulatory MD Tamia France Work Phone: [facility] Work Phone: Start: 01-05-2024 End: 01-05-2024 Patient encounter procedure MD Tamia France Work Phone: [facility] Work Phone: Start: 12-24-2023 Non-patient / Non-visit MD Adarsh France Work Phone: [facility] Work Phone: Start: 12-24-2023 End: 12-24-2023 Admission to same day surgery center MD Tamia France Work Phone: [facility] Work Phone: Start: 12-24-2023 End: 12-24-2023 ambulatory MD Tamia France Work Phone: [facility] Work Phone: Start: 12-08-2023 End: 12-08-2023 ambulatory MD Tamia France Work Phone: [facility] Work Phone: Start: 12-08-2023 End: 12-08-2023 Patient encounter procedure MD Tamia France Work Phone: [facility] Work Phone: Start: 10-07-2023 Non-patient / Non-visit MD Adarsh France Work Phone: [facility] Work Phone: Start: 10-07-2023 End: 10-07-2023 Admission to same day surgery center MD Tamia France Work Phone: [facility] Work Phone: Start: 10-07-2023 End: 10-07-2023 ambulatory MD Tamia France Work Phone: [facility] Work Phone: Start: 09-11-2023 End: 09-11-2023 ambulatory MD Tamia France Work Phone: [facility] Work Phone: Start: 09-11-2023 End: 09-11-2023 Patient encounter procedure MD Tamia France Work Phone: [facility] Work Phone: Start: 09-10-2023 Registered Recurring MD Tamia France Work Phone: [facility] Work Phone: Start: 09-07-2023 End: 09-07-2023 Emergency department patient visit MD Tamia France Work Phone: [facility] Work Phone: Start: 07-27-2023 Bamboo flowsheet George jean DO Work Phone: [facility] Start: 07-27-2023 Bamboo flowsheet George jean DO Work Phone: [facility] Start: 07-27-2023 End: 07-27-2023 Office outpatient visit 25 minutes George Hogue DO Work Phone: [facility] Comment on above: Acute cystitis with hematuria (Primary Dx); Dysuria Start: 06-14-2023 End: 06-14-2023 ambulatory MD Tamia France Work Phone: [facility] Work Phone: Start: 06-14-2023 End: 06-14-2023 Patient encounter procedure MD Tamia France Work Phone: [facility] Work Phone: Start: 05-12-2023 End: 05-12-2023 ambulatory Trip Enriquez Other [employer] Other Start: 05-12-2023 Telephone encounter Trip [facility] Start: 04-22-2023 End: 04-22-2023 ambulatory MD Tamia France Work Phone: [facility] Work Phone: Start: 04-22-2023 End: 04-22-2023 Patient encounter procedure MD Tamia France Work Phone: [facility] Work Phone: Start: 04-01-2023 End: 04-01-2023 ambulatory Trip Enriquez Other [employer] Other Start: 04-01-2023 Office outpatient vi sit 15 minutes Trip Enriquez [facility] [place] Start: 03-18-2023 (Procedure) Short Trip Enriquez [facility] Start: 03-18-2023 End: 03-18-2023 Admission to same day surgery center MD Tamia France Work Phone: [facility] Work Phone: Start: 03-18-2023 End: 03-18-2023 ambulatory MD Tamia France Work Phone: [facility] Work Phone: Start: 03-12-2023 Registered Recurring MD Tamia France Work Phone: [facility] Work Phone: Start: 03-10-2023 End: 03-10-2023 ambulatory Trip Enriquez Other [employer] Other Start: 03-10-2023 Office outpatient vi sit 25 minutes Trip Enriquez [facility] Start: 03-03-2023 End: 03-03-2023 ambulatory MD Tamia France Work Phone: [facility] Work Phone: Start: 03-03-2023 End: 03-03-2023 Patient encounter procedure MD Tamia France Work Phone: [facility] Work Phone: Start: 01-02-2023 End: 01-02-2023 ambulatory Trip Enriquez Other [employer] Other Start: 01-02-2023 Office outpatient vi sit 15 minutes Trip Enriquez [facility] Start: 10-11-2022 End: 10-12-[address] TAMIA FRANCE Facility:[facility] Start: 06-05-2022 End: 06-06-[address] TAMIA FRANCE Facility:[facility] Start: 04-24-2022 End: 04-24-2022 ambulatory Trip Enriquez Other [facility] [employer] Other Start: 04-24-2022 Office outpatient vi sit 25 minutes Trip Enriquez [facility] Start: 04-24-2022 Telephone encounter Trip [facility] Start: 04-09-2022 (Procedure) Short Trip Horansaima [facility] Start: 04-09-2022 End: 04-09-2022 Admission to same day surgery center MD Tamia France Work Phone: [facility] Start: 04-09-2022 End: 04-09-2022 ambulatory MD Tamia France Work Phone: [facility] Work Phone: Start: 03-26-2022 (Procedure) Ember Horansaima [facility] Start: 03-26-2022 End: 03-26-2022 Admission to same day surgery center MD Tamia France Work Phone: [facility] Start: 03-26-2022 End: 03-26-2022 ambulatory MD Tamia France Work Phone: [facility] Work Phone: Start: 02-26-2022 End: 02-26-2022 Subsequent hospital visit by physician Lukas [facility] Comment on above: PMR (polymyalgia rhe umatica) ([facility]) [M35.3] Start: 02-19-2022 End: 02-19-2022 Patient encounter procedure MD Tamia France Work Phone: [facility] Start: 02-07-2022 End: 08-25-2022 ambulatory Trip Enriquez Other [employer] Other Start: 02-07-2022 Office outpatient vi sit 25 minutes Trip Marlinesaima [facility] Start: 12-28-2021 End: 12-29-[address] TAMIA FRANCE Facility:[facility] Start: 11-06-2021 End: 11-06-2021 ambulatory Trip Enriquez Other [employer] Other Start: 11-06-2021 Office outpatient vi sit 25 minutes Trip Marlineer [facility] Start: 10-03-2021 End: 10-03-2021 ambulatory Trip Enriquez Other [employer] Other Start: 10-03-2021 Office outpatient vi sit 25 minutes Trip Felter [facility] Start: 05-28-2021 End: 05-28-2021 ambulatory Trip Enriquez Other [employer] Other Start: 05-28-2021 Office outpatient vi sit 25 minutes Trip Horaner [facility] Procedures Date Procedure Procedure Detail Performing Clinician Start: 01-07-2025 H/O: artificial joint Aftercare following joint replacement surgery Umm Otoole Start: 11-25-2024 XR FOOT 3V AP/LAT/OBL LT Generic Externa l Data Provider Start: 10-20-2024 TISS PATH BX REPORT Generic External Data Provider Start: 10-05-2024 Basic metabolic panel calcium total Tamia France MD Work Phone: Start: 10-05-2024 SPECIMEN STATUS REPORT Tamia France MD Work Phone: Start: 09-28-2024 Arthrocnt aspir&/inj small jt/bursaw/us rec rprt Mandi Solomon DO Work Phone: Start: 09-24-2024 Radex foot complete minimum 3 views Trevor Lancaster DPM Work Phone: Start: 09-24-2024 XR FOOT 3V AP/LAT/OBL LT Generic Externa l Data Provider Start: 08-12-2024 Cv strs tst xers&/or rx cont ecg trcg only Kimmie Beaver MD Work Phone: Start: 08-12-2024 NUCLEAR STRESS TEST EXERCISE (CARD) Generic External Data Provider Start: 08-05-2024 Adult depression screening assessment Ava Dumont MD Work Phone: Start: 07-22-2024 CT cervical spine without contrast Jordan France MD Work Phone: Start: 07-22-2024 CT of head without contrast Tamia France MD Work Phone: Start: 07-22-2024 Ecg routine ecg w/least 12 lds w/i&r Kimmie Beaver MD Work Phone: Start: 07-12-2024 CT cervical spine without contrast Jordan France MD Work Phone: Start: 07-12-2024 CT of head without contrast Tamia France MD Work Phone: Start: 07-12-2024 X-ray of lumbar spine, two or three views Tamia France MD Work Phone: Start: 07-12-2024 X-ray of sacrum and coccyx, two or more views Tamia France MD Work Phone: Start: 06-23-2024 Complete blood count with white cell differential, automated Cheryl Alicea CONCRETE POURER Work Phone: Start: 06-23-2024 Comprehensive metabolic panel Cheryl R Ris aliti CONCRETE POURER Work Phone: Start: 06-23-2024 Lipid panel Cheryl Aretha Cunninghamti CONCRETE POURER Work Phone: Start: 06-23-2024 SPECIMEN STATUS REPORT Cheryl Cunninghamti N P Work Phone: Start: 06-23-2024 Lipid 1996 panel - Serum or Plasma Jeffrey Beaver MD Work Phone: Start: 05-25-2024 Urine culture Tamia France MD Work Phone: Start: 05-21-2024 Plain X-ray of left hip Tamia France MD Work Phone: Start: 05-21-2024 Urine culture Tamia France MD Work Phone: Start: 05-11-2024 Urine culture Tamia France MD Work Phone: Start: 05-09-2024 Duplex scan of lower limb veins Tamia angel MD Work Phone: Start: 04-30-2024 Duplex scan of lower limb veins Tamia angel MD Work Phone: Start: 04-24-2024 Adult depression screening assessment Lauren Heladio HATCHERY MAN Start: 02-24-2024 Radiofrequency destruction of peripheral nerve MD Tamia France Work Phone: Start: 12-24-2023 Esophagogastroduodenoscopy MD Tamia davis Work Phone: Start: 10-07-2023 Radiofrequency destruction of peripheral nerve MD Tamia France Work Phone: Start: 09-07-2023 Computed tomography of abdomen and pelvis with contrast MD Tamia France Work Phone: Start: 07-27-2023 URINARY TRACT INFECTION (HTRX) George Hogue DO Work Phone: Start: 07-27-2023 Urnls dip stick/tablet rgnt auto w/o microscopy George Hogue DO Work Phone: Start: 04-22-2023 End: 04-22-2023 Screening mammography of bilateral breasts MD Tamia France Work Phone: Start: 03-18-2023 Radiofrequency destruction of peripheral nerve MD Tamia France Work Phone: Start: 10-21-2022 End: 11-22-2022 H/O: hysterectomy Status post hysterectomy George Hogue DO Work Phone: Start: 04-09-2022 Radiofrequency destruction of peripheral nerve MD Tamia France Work Phone: Start: 03-26-2022 Radiofrequency destruction of peripheral nerve MD Tamia France Work Phone: Start: 02-26-2022 Radex shoulder complete minimum 2 views Josué Pham MD Work Phone: Start: 02-19-2022 End: 02-19-2022 Screening mammography of bilateral breasts MD Tamia France Work Phone: Start: 11-30-2018 Colonoscopy George Hogue DO Work Phone: Plan of Treatment Date Care Activity Detail Author Start: 06-23-2029 Lipid panel Lipid Panel [facility] Start: 11-30-2028 Screening for malignant neoplasm of colon [facility] Start: 02-04-2026 Screening for osteoporosis Bone Density Scan [facility] Start: 08-05-2025 Adult BMI Screening Adult BMI Screening [facility] Start: 08-05-2025 Depression Screening Depression Screening [facility] Start: 04-26-2025 Adult BMI Screening Adult BMI Screening [facility] Start: 04-24-2025 Depression Screening Depression Screening [facility] Start: 04-24-2025 Tobacco Screening Tobacco Screening [facility] Start: 04-18-2025 End: 04-18-2025 Patient encounter procedure 04/18/2025 1:15 PM EST Office Visit Orthopaedics [address] [place] [address] Trevor Lancaster DPM [address] [place] [address] 3 month f/u Orthopaedics Comment on above: 3 month f/u Start: 03-23-2025 End: 03-23-2025 Patient encounter procedure 03/23/2025 10:00 AM EDT Office Visit [facility] [address] [facility] [address] [place] [address] Kimmie Beaver MD [address] [place] [address] [facility] Start: 02-14-2025 Influenza vaccination [facility] Start: 02-04-2025 End: 02-04-2025 Patient encounter procedure [facility] Start: 01-31-2025 End: 01-31-2025 Patient encounter procedure [facility] Start: 01-27-2025 End: 01-27-2025 Telemedicine consultation with patient 01/27/2025 9:30 AM EDT Telemedicine [facility] Neurology, A Department of [facility] [address] [place] [phone] [facility], A Department of [facility] Start: 01-23-2025 End: 07-26-2025 Basic metabolic 1998 panel - Serum or Plasma Basic metabolic panel Lab Routine History of bariatric surgery Medication management Expected: 01/23/2025 (Approximate), Expires: 07/26/2025 [facility] Work Phone: Comment on above: Expected: 01/23/2025 (Approximate), Expi res: 07/26/2025 Start: 01-18-2025 Medicare Annual Wellness (AWV) Medicare Annual Wellness (AWV) [facility] Start: 01-14-2025 End: 01-14-2025 Patient encounter procedure 01/14/2025 10:45 AM EDT Office Visit [facility] [address] [place] [phone] [facility] Start: 01-11-2025 End: 01-11-2025 Patient encounter procedure 01/11/2025 1:15 PM EDT Office Visit Podiatry [address] [place] [address] Trevor Lancaster DPM [address] [place] [address] \ Post op 6 wks left foot, SX 10/20/24 Podiatry Comment on above: \ Post op 6 wks left foot, SX 10/20/24 Start: 01-03-2025 End: 01-03-2025 Patient encounter procedure 01/03/2025 3:15 PM EDT Office Visit Orthopaedics [address] [place] [address] Trevor Lancaster DPM [address] [place] [address] Post op 12 wks left foot, SX 10/20/24 Orthopaedics Comment on above: Post op 12 wks left foot, SX 10/20/24 Start: 12-20-2024 End: 12-20-2024 Patient encounter procedure 12/20/2024 10:45 AM EDT Office Visit Orthopaedics [address] [place] [address] Trevor Lancaster DPM [address] [place] [address] 3 weeks follow-up/ Post op 6 wks left foot, SX 10/20/24 Orthopaedics Comment on above: 3 weeks follow-up/ Post op 6 wks left fo ot, SX 10/20/24 Start: 12-02-2024 End: 12-02-2024 Patient encounter procedure 12/02/2024 3:15 PM EDT Office Visit Orthopaedics [address] [place] [address] Trevor Lancaster DPM [address] [place] [address] Post op 6 wks left foot, SX 10/20/24 Orthopaedics Comment on above: Post op 6 wks left foot, SX 10/20/24 Start: 11-25-2024 End: 11-25-2024 Patient encounter procedure Orthopaedics Comment on above: Post op 3 wks left foot, SX 10/20/24 LT SLC NWB Post op 6 wks left f oot, SX 10/20/24 Start: 11-10-2024 End: 11-10-2024 Patient encounter procedure 11/10/2024 3:00 PM EDT Office Visit Orthopaedics [address] [place] [address] Trevor Lancaster DPM [address] [place] [address] Post op 3 wks left foot, SX 10/20/24 Orthopaedics Comment on above: Post op 3 wks left foot, SX 10/20/24 Start: 10-26-2024 End: 10-26-2024 Patient encounter procedure 10/26/2024 1:15 PM EDT Office Visit Podiatry [address] [place] [address] Trevor Lancaster DPM [address] [place] [address] Post op left foot, SX 10/20/24 Podiatry Comment on above: Post op left foot, SX 10/20/24 Start: 10-22-2024 Hemoglobin A1c measurement HbA1C [facility] Start: 10-20-2024 End: 10-20-2024 Admission to same day surgery center 10/20/2024 11:50 AM EDT - 10/20/2024 2:40 PM EDT Surgery Ambulatory Surgery [address] [place] [address] Trevor Lancaster DPM [address] [place] [address] TRANSFER TENDON EXTREMITY LOWER Ambulatory Surgery Comment on above: TRANSFER TENDON EXTREMITY LOWER Start: 10-20-2024 End: 10-20-2024 Capsulotomy midfoot w/tendon lengthening CAPSULOTOMY MIDFOOT WITH TENDON LENGTHENING Hemiparesis of left nondominant side as late effect of cerebrovascular disease, unspecified cerebrovascular disease type (HCC) Foot contracture, left Gastrocnemius 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 Difficulty walking Tailor's bunion of left foot 10/20/2024 11:50 AM EDT [facility] Start: 10-20-2024 End: 10-20-2024 Gastrocnemius recession RECESSION GASTROCNEMIUS Hemiparesis of left nondominant side as late effect of cerebrovascular disease, unspecified cerebrovascular disease type (HCC) Foot contracture, left Gastrocnemius 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 Difficulty walking Tailor's bunion of left foot 10/20/2024 11:50 AM EDT [facility] Start: 10-20-2024 End: 10-20-2024 Ostectomy complete 5th metatarsal head OSTECTOMY COMPLETE EXCISION METATARSAL HEAD FIFTH Hemiparesis of left nondominant side as late effect of cerebrovascular disease, unspecified cerebrovascular disease type (HCC) Foot contracture, left Gastrocnemius 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 Difficulty walking Tailor's bunion of left foot 10/20/2024 11:50 AM EDT [facility] Start: 10-20-2024 Subsequent hospital visit by physician Ambulatory Surgery Comment on above: Hemiparesis of left nondominant side as late effect of cerebrovascular disease, unspecified cerebrovascular disease type (HCC) [I69.954], Foot contracture, left [M24.575], Gastrocnemius equinus of left lower extremity [M62.462], Metatarsus adductus of left foot [Q66.222], Difficulty walking [R26.2], Tailor's bunion of left foot [M21.622] Start: 10-20-2024 End: 10-20-2024 Tr/trnspl 1 tdn w[facility] redirion/rerouting dp TRANSFER TENDON EXTREMITY LOWER Hemiparesis of left nondominant side as late effect of cerebrovascular disease, unspecified cerebrovascular disease type (HCC) Foot contracture, left Gastrocnemius 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 Difficulty walking Tailor's bunion of left foot 10/20/2024 11:50 AM EDT [facility] Start: 10-06-2024 Covid-19 Vaccine ( season) Covid-19 Vaccine ( season) [facility] Start: 10-06-2024 Covid-19 Vaccine (8 - Moderna risk season) Covid-19 Vaccine (8 - Moderna risk season) [facility] Start: 10-06-2024 End: 10-06-2024 Anesthesia consultation 10/06/2024 8:20 AM EDT PAT Pre Anesthesia [address] [facility] [place] [address] 2, Pacc [place] [address] [facility] [place] [address] PACC left foot, SX 10/20/24 Pre Anesthesia Comment on above: PACC left foot, SX 10/20/24 Start: 09-28-2024 End: 09-28-2024 Patient encounter procedure 09/28/2024 10:45 AM EDT Office [place] [phone] Mandi Solomon, DO [address] [place] [address] [facility] Start: 09-21-2024 End: 09-21-2024 Professional / ancillary services management 09/21/2024 11:15 AM EDT Ancillary Procedure [facility] MR [address] [place] [phone] [facility] Start: 09-10-2024 End: 09-10-2024 Patient encounter procedure 09/10/2024 10:15 AM EDT Office Visit [facility] [address] [place] [phone] Mandi Solomon, DO [address] [place] [address] Arrived [facility] Comment on above: Arrived Start: 08-17-2024 End: 08-17-2024 Patient encounter procedure [facility] Comment on above: Pain of right thumb (Primary Dx) Start: 08-12-2024 End: 08-12-2024 Patient encounter procedure 08/12/2024 2:15 PM EST Appointment [facility] [address] [facility] [address] [place] [phone] [facility] Start: 08-12-2024 End: 08-12-2024 Patient encounter procedure [facility] Start: 08-05-2024 End: 08-05-2024 Patient encounter procedure 08/05/2024 11:00 AM EST Office Visit [facility] [address] [place] [phone] [facility] Start: 07-30-2024 End: 07-30-2024 Patient encounter procedure 07/30/2024 9:45 AM EST Office Visit [facility] [address] [place] [phone] Cheryl Alicea, CONCRETE POURER [address] [place] [address] [facility] Start: 07-26-2024 End: 07-26-2024 Patient encounter procedure [facility] Start: 07-22-2024 End: 07-22-2026 NM Heart Perfusion W stress and W radionuclide IV Nuclear Stress Test Cardiac Nuclear Medicine Routine Abnormal EKG Cerebrovascular accident (CVA), unspecified mechanism (Multi) History of TIA (transient ischemic attack) Mixed hyperlipidemia BMI 24.0-24.9, adult Expected: 07/22/2024 (Approximate), Expires: 07/22/2026 [facility] Service Area Work Phone: Comment on above: Expected: 07/22/2024 (Approximate), Expi res: 07/22/2026 Start: 06-16-2024 Advance Directive Discussion Advance Directive Discussion [facility] Start: 06-16-2024 Medicare Advantage Annual Wellness Visit Medicare Advantage Annual Wellness Visit [facility] Start: 06-10-2024 End: 06-10-2024 Patient encounter procedure 06/10/2024 2:30 PM EST Office Visit [facility] [address] [place] [phone] Kavya Gar MD [address] [place] [address], [address] [address] [facility] Start: 06-02-2024 [facility] Start: 05-27-2024 End: 05-27-2024 Patient encounter procedure [facility] Start: 05-25-2024 Arrangement of care procedure [facility] Start: 05-04-2024 [facility] Start: 05-03-2024 Arrangement of care procedure [facility] Start: 04-29-2024 Hospital admission [facility] Start: 04-29-2024 Referral to clinical non licensed operator [facility] Start: 04-29-2024 End: 04-29-2024 ambulatory 04/29/2024 7:30 AM EST Treatment [facility] [address] [place] [phone] Daniela Hurtado, PT [facility] Start: 04-26-2024 End: 04-26-2024 ambulatory 04/26/2024 8:00 AM EST Treatment [facility] [address] [place] [address] Randi Locke FLYING SHEAR OPERATOR [address] [place] [address] [facility] Start: 04-23-2024 End: 04-23-2024 ambulatory 04/23/2024 7:30 AM EST Treatment [facility] PT [address] [place] [phone] Daniela Hurtado, PT [facility] Start: 04-22-2024 Screening for malignant neoplasm of breast Mammogram [facility] Start: 04-19-2024 End: 04-19-2024 ambulatory [facility] Comment on above: Acute pain of right shoulder; Acute pain of left shoulder; Spasm of muscle of lower back Start: 04-15-2024 End: 04-15-2024 Patient encounter procedure 04/15/2024 10:15 AM EDT Office Visit [facility] [address] [place] [address] Kaila Zaman, DO [address] [place] [address] [facility] Start: 03-20-2024 Medicare Annual Wellness (AWV) Medicare Annual Wellness (AWV) [facility] Start: 03-06-2024 Adult BMI Screening Adult BMI Screening [facility] Start: 03-06-2024 Tobacco Screening Tobacco Screening [facility] Start: 02-24-2024 [facility] Start: 02-15-2024 COVID-19 Vaccine ( season) COVID-19 Vaccine ( season) [facility] Start: 02-15-2024 Influenza vaccination [facility] Start: 02-05-2024 End: 02-05-2024 Professional / ancillary services management 02/05/2024 10:30 AM EDT Ancillary Procedure [facility] DXA [address] [place] [phone] [facility] Start: 12-24-2023 [facility] Start: 12-10-2023 End: 12-10-2023 Patient encounter procedure 12/10/2023 10:15 AM EDT Office Visit [facility] IM [address] [place] [address] Tamia France MD [address] [place] [address] [facility] Start: 10-07-2023 [facility] Start: 10-06-2023 End: 10-06-2023 Patient encounter procedure 10/06/2023 12:00 PM EDT Office Visit [facility] NEUR [address] [place] [phone] Tony Sapp MD [address] [facility] [address] [address] [facility] Start: 04-11-2023 Administration of varicella zoster vaccine Zoster (Shingles) Vaccine (2 of 2) [facility] Start: 03-18-2023 [facility] Start: 02-19-2023 Screening for malignant neoplasm of breast [facility] Start: 02-14-2023 Influenza vaccination INFLUENZA (#1) [facility] Start: 06-16-2022 ADVANCE DIRECTIVE DISCUSSION ADVANCE DIRECTIVE DISCUSSION [facility] Start: 04-09-2022 [facility] Start: 03-26-2022 [facility] Start: 02-21-2022 COVID-19 VACCINE (5 - Booster for Moderna series) COVID-19 VACCINE (5 - Booster for Moderna series) [facility] Start: 2020 BONE DENSITY BONE DENSITY [facility] Start: 2020 Fall Risk Screening Fall Risk Screening [facility] Start: 12-01-2019 Screening for malignant neoplasm of colon [facility] Start: 09-24-2012 Screening for malignant neoplasm of cervix Cervical Cancer Screening [facility] Start: 2000 COLOGUARD (FIT-DNA) COLOGUARD (FIT-DNA) [facility] Start: 2000 Colonoscopy COLONOSCOPY [facility] Start: 2000 COLORECTAL CANCER SCREENING COLORECTAL CANCER SCREENING [facility] Start: [address] COLONOGRAPHY [facility] Start: 2000 FECAL OCCULT BLOOD FECAL OCCULT BLOOD [facility] Start: 2000 Screening for malignant neoplasm of colon [facility] Start: 2000 SIGMOIDOSCOPY SIGMOIDOSCOPY [facility] Start: 1995 Mammography MAMMOGRAM [facility] Start: 1977 DTaP/Tdap/Td Vaccines (1 - Tdap) DTaP/Tdap/Td Vaccines (1 - Tdap) [facility] Start: 1974 DTaP,Tdap and Td Vaccines (1 - Tdap) DTaP,Tdap and Td Vaccines (1 - Tdap) [facility] Start: 1974 SHINGRIX VACCINE (1 of 2) SHINGRIX VACCINE (1 of 2) [facility] Start: 1974 Urine microalbumin profile [facility] Start: 1973 Adult BMI Follow Up Plan Adult BMI Follow Up Plan [facility] Start: 1973 ANNUAL PCP TEAM CHRONIC DISEASE VISIT ANNUAL PCP TEAM CHRONIC DISEASE VISIT [facility] Start: 1973 Anxiety Screening Anxiety Screening [facility] Start: 1973 Diabetes mellitus screening Diabetes Screening [facility] Start: 1973 Diabetic foot examination Diabetic Foot Exam [facility] Start: 1973 Hepatitis B surface antibody level LDL CHOLESTEROL [facility] Start: 1973 Hepatitis C screening Hepatitis C Screening [facility] Start: 1967 Depression Screening Depression Screening [facility] Start: 1965 3 comp foot exam completed DIABETIC FOOT EXAM [facility] Start: 1965 Diabetic foot examination Diabetic Foot Exam [facility] Start: 1965 Glaucoma screening Dilated Retinal Exam [facility] Start: 1965 Hepatitis B screening URINE ALBUMIN:CREATININE RATIO [facility] Start: 1965 Hepatitis C antibody, confirmatory test DILATED RETINAL EXAM [facility] Start: 1961 PNEUMOCOCCAL: 65+ (1 - PCV) PNEUMOCOCCAL: 65+ (1 - PCV) [facility] Start: 1960 Hemoglobin A1c/Hemoglobin.total in Blood HBA1C [facility] Start: 1955 Glaucoma screening Diabetic Ophthalmology Exam [facility] Start: 1955 Medicare Annual Wellness Visit [facility] Start: 1955 Screening for malignant neoplasm of colon [facility] Gastrocnemius recession RECESSIO N GASTROCNEMIUS Hemiparesis of left nondominant side as late effect of cerebrovascular disease, unspecified cerebrovascular disease type (HCC) Foot contracture, left Gastrocnemius 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 Difficulty walking [facility]ailor's bunion of left foot [facility] Ostectomy complete 5 th metatarsal head OSTECTOMY COMPLETE EXCISION METATARSAL HEAD FIFTH Hemiparesis of left nondominant side as late effect of cerebrovascular disease, unspecified cerebrovascular disease type (HCC) Foot contracture, left Gastrocnemius 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 Difficulty walking Tailor's bunion of left foot [facility] Work Phone: Patient referral [facility] Work Phone: Tr/trnspl 1 tdn w/[facility] redirion/rerouting dp TRANSFER TENDON EXTREMITY LOWER Hemiparesis of left nondominant side as late effect of cerebrovascular disease, unspecified cerebrovascular disease type (HCC) Foot contracture, left Gastrocnemius 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 Difficulty walking Tailor's bunion of left foot [facility] End: 12-25-2025 XR Foot - left AP and Lateral and oblique XR FOOT GENERAL 3V AP/LAT/OBL LEFT Radiology Routine Post-operative state 1 Occurrences starting 11/25/2024 until 12/25/2025 [facility] Work Phone: Comment on above: 1 Occurrences starting 11/25/2024 until 12/25/2025 XR Foot - left AP an d Lateral and oblique XR FOOT GENERAL 3V AP/LAT/OBL LEFT Radiology Routine Post-operative state 11/25/2024 1:28 PM EDT [facility] Work Phone: XR Hand - right 2 Views XR hand 1 or 2 views right Imaging Routine Fall, subsequent encounter Localized swelling on right hand 08/11/2024 11:22 AM EST [facility] XR Humerus - right Views XR dana aaron right Imaging Routine Fall, subsequent encounter Acute pain of right shoulder 08/11/2024 11:22 AM EST [facility] XR Shoulder - right 2 Views XR shoulder 2+ views right Imaging Routine Fall, subsequent encounter Acute pain of right shoulder 08/11/2024 11:22 AM EST [facility] Work Phone: Immunizations Immunization Date Immunization Notes Care Provider Fa [facility] 04-07-2024 Covid-19,mrna, Lnp-s , Pf, 50mcg/0.5ml 12+ Lauren [facility] 04-07-2024 RSV, bivalent, prote in subunit RSVpreF, diluent reconstituted, 0.5 mL, PF [facility] 04-07-2024 Seasonal trivalent influenza vaccine, adjuvanted, preservative free [facility] 04-07-2024 influenza virus vacc ine, unspecified formulation Irene Ambrocio RN [facility] 04-18-2023 zoster vaccine recombinant George Hogue DO Work Phone: [facility] 04-07-2023 Influenza, Seasonal, Quadrivalent, Adjuvanted George Hogue DO Work Phone: [facility] 04-07-2023 influenza virus vacc ine, unspecified formulation Tony Sapp MD Work Phone: [facility] 02-14-2023 zoster vaccine recombinant George Hogue DO Work Phone: [facility] 02-14-2023 zoster vaccine, unspecified formulation Jong OLEA Work Phone: [facility] 11-25-2022 Pneumococcal Conjuga te PCV 20 George Hogue DO Work Phone: [facility] 04-01-2022 influenza, injectabl e, quadrivalent, preservative free [facility] 04-01-2022 influenza virus vacc ine, unspecified formulation Jong OLEA Work Phone: [facility] 04-25-2021 SARS-CoV-2 (COVID-19 ) mRNA-1273 vaccine Trevor Biswas [facility] 03-20-2021 influenza, high dose seasonal, preservative-free George Tesmond DO Work Phone: [facility] 04-10-2020 influenza, injectabl e, quadrivalent, preservative free George Tesmond DO Work Phone: [facility] 04-24-2019 influenza, injectabl e, quadrivalent, contains preservative George Tesmond DO Work Phone: [facility] 03-23-2018 influenza, injectabl e, quadrivalent, contains preservative Lauren Hel[facility] 04-28-2017 seasonal influenza, intradermal, preservative free George Tesmond DO Work Phone: [facility] 03-21-2017 influenza, injectabl e, quadrivalent, contains preservative Lauren Helad[facility] 04-12-2016 influenza virus vacc ine, split virus (incl. purified surface antigen) George Tesmond DO Work Phone: [facility] 04-12-2016 influenza, seasonal, injectable Lauren [facility] 04-20-2015 influenza, seasonal, injectable, preservative free Lauren Helad[facility] 04-16-2014 influenza, seasonal, injectable Lauren [facility] 04-16-2014 seasonal influenza, intradermal, preservative free George Tesmond DO Work Phone: [facility] 04-14-2013 influenza, seasonal, injectable Lauren [facility] 07-02-2010 pneumococcal polysaccharide vaccine, 23 valent George Tesmond DO Work Phone: [facility] 04-09-2001 pneumococcal polysaccharide vaccine, 23 valent George Tesmond DO Work Phone: [facility] Payers Date Payer Category Payer Self-pay [id number] 2023 Self-pay [id number] 2022 Medicare (Managed Care) 1.2. [id number] 2022 Medicare [id number] 2020 Medicare [id number] 2006 Unknown [employer] BLUE CARD PPO OOS [id number] 2006-Present [phone] [address] [place] [address] PPO [id number] 1959 Blue Cross Blue Shield [id number] 2.16.840.1.582899.19 1959 Medicare [id number] 2.16.840.1.730554.19 1959 Medicare [id number] 1955 Unknown [id number] 2.16.840.1.496123.3.579.2.5 1955 Unknown [id number] 2.16.840.1.204111.3.579.2.5 1955 Unknown [id number] 2.16.840.1.626192.3.579.2.5 93 1955 Unknown [id number] 2.16.840.1.082195.3.579.2.7 1955 Unknown [id number] 2.16.840.1.953332.3.579.2.7 1955 Unknown [id number] 2.16.840.1.366906.3.579.2.7 27 1955 Unknown [id number] 2.16.840.1.536664.3.579.2.7 32 1955 Unknown [id number] 2.16.840.1.327304.3.579.2.7 27 1955 Unknown [id number] 2.16.840.1.468802.3.579.2.1 286 1955 Unknown [id number] 2.16.840.1.352795.3.579.2.1 286 1955 Unknown [id number] 2.16.840.1.068562.3.579.2.1 286 1955 Unknown [id number] 2.16.840.1.718727.3.579.2.1 286 1955 Unknown [id number] 2.16.840.1.483198.3.579.2.1 286 1955 Unknown [id number] 2.16.840.1.159470.3.579.2.1 246 1955 Unknown [id number] 2.16.840.1.702056.3.579.2.1 246 1955 Unknown [id number] 2.16.840.1.080296.3.579.2.1 246 1955 Unknown [id number] 2.16.840.1.596836.3.579.2.1 246 1955 Unknown [id number] 2.16.840.1.731114.3.579.2.1 246 1955 Unknown [id number] 2.16.840.1.674920.3.579.2.1 244 1955 Unknown [id number] 2.16.840.1.746213.3.579.2.1 259 1955 Unknown [id number] 2.16.840.1.925018.3.579.2.1 259 1955 Unknown [id number] 2.16.840.1.287922.3.579.2.1 259 1955 Unknown [id number] 2.16.840.1.442133.3.579.2.1 259 1955 Unknown [id number] 2.16.840.1.055673.3.579.2.1 259 1955 Unknown [id number] 2.16.840.1.012034.3.579.2.1 259 1955 Unknown [id number] 2.16.840.1.724253.3.579.2.1 259 1955 Unknown [id number] 2.16.840.1.345391.3.579.2.1 259 1955 Unknown [id number] 2.16.840.1.495095.3.579.2.1 259 1955 Unknown [id number] 2.16.840.1.570102.3.579.2.1 259 1955 Unknown [id number] 2.16.840.1.139810.3.579.2.1 259 1955 Unknown [id number] 2.16.840.1.647840.3.579.2.1 259 1955 Unknown [id number] 2.16.840.1.028126.3.579.2.1 259 1955 Unknown [id number] 2.16.840.1.738936.3.579.2.1 259 1955 Unknown [id number] 2.16.840.1.700539.3.579.2.1 259 1955 Unknown [id number] 2.16.840.1.925900.3.579.2.1 259 1955 Unknown [id number] 2.16.840.1.696609.3.579.2.1 259 1955 Unknown [id number] 2.16.840.1.509928.3.579.2.1 259 1955 Unknown [id number] 2.16.840.1.925534.3.579.2.1 259 1955 Unknown [id number] 2.16.840.1.614067.3.579.2.1 259 1955 Unknown [id number] 2.16.840.1.192214.3.579.2.1 286 1955 Unknown [id number] 2.16.840.1.914002.3.579.2.1 286 1955 Unknown [id number] 2.16.840.1.239385.3.579.2.1 286 1955 Unknown [id number] 2.16.840.1.079405.3.579.2.1 286 1955 Unknown [id number] 2.16.840.1.816256.3.579.2.1 286 1955 Unknown [id number] 2.16.840.1.229031.3.579.2.1 286 Unknown [place] / [id number] Unknown [id number] 2.16.840.1.768800.3.579.2.5 31 Unknown [id number] 2.16.840.1.808135.3.579.2.5 31 Unknown [id number] 2.16.840.1.775800.3.579.2.5 31 Unknown [id number] 2.16.840.1.643863.3.579.2.5 31 Unknown [id number] 2.16.840.1.857653.3.579.2.5 31 Unknown [id number] 2.16.840.1.831528.3.579.2.5 31 Unknown [id number] 2.16.840.1.847392.3.579.2.5 31 Unknown [id number] 2.16.840.1.156982.3.579.2.5 31 Social History Date Type Detail Facility Unknown if ever smoked [facility] [employer] Other Start: 07-09-2023 End: 01-14-[address] [facility] [employer] Other Start: 2021 End: 06-23-2024 Tobacco smoking status MAIS Ex-smoker (finding) [facility] Start: 1955 Sex Assigned At Female F [facility] Start: 06-16-1978 End: 10-20-2006 History of tobacco use Current smoker [facility] Start: 06-16-1978 End: 10-20-2006 History of tobacco use Cigarette Smoker [facility] Start: 02-15-2011 End: 01-14-2025 Cigarettes smoked current (pack per day) - Reported 1.5 [facility] Start: 02-15-2011 End: 06-23-2024 Tobacco use and exposure Smokeless tobacco non-user [facility] Start: 01-06-2015 End: 10-20-2024 Alcohol intake Current drinker of alcohol (finding) [facility] Start: 1955 Sex Assigned At Not on file C [facility] Start: 02-16-2022 End: 08-12-2024 Exposure to SARS-CoV-2 (event) Not sure [facility] Start: 12-27-2022 Alcohol Comment 6+ drinks carlos hly. Caffine intake: 1-2 cups per day [facility] Tobacco smoking status No Smokin g Status Entered [facility] Start: 06-23-2024 End: 01-14-2025 Alcoholic beverage intake Ex-drinker (finding) [facility] Start: 11-29-2015 End: 06-23-2024 Sex Female (finding) [facility] Has the [employer], oil, or water [email or web address] threatened to shut off services in your home in past 12Mo No [facility] How often to you hav e a drink containing alcohol? Monthly or less [facility] How many standard drinks containing alcohol do you have on a typical day? 1 or 2 [facility] [employer] [facility] How often do you hav e 6 or more drinks on 1 occasion? Never [email or web address] Adolescent depressio n screening assessment 0 [facility] [employer] [facility] Start: 03-28-2022 Tobacco Comment quit 12 years [facility] Start: 07-03-2022 Alcohol Comment weekly [facility] Start: 07-12-2024 Tobacco smoking stat us NHIS Never smoked tobacco (finding) [facility] Start: 10-06-2024 Alcohol Comment rare/ when out to dinner will have 1 glass of sangria [facility] Medical Equipment Procedure Code Equipment Code Equipment [...] 08-19-2017 [employer] FDA Start: 08-19-2017 Bearing Hip 38mm 28mm C Vivacit-E Lum Strl Lf - [id number] Start: 07-17-2022 Shell Actb 48mm Hip Lmt 3 Hl Fin Por G7 C Hmsphr Os - [id number] FDA Start: 07-17-2022 Liner Actb 38mm C Cocr 2 Mbl G7 Hip - [id number] ()[id number] , [id number] FDA Start: 07-17-2022 Stem Fem 142mm 1 1mm 133d Hi Os Tpr Tprlk Pps Ti Hip Prft [facility] - [id number] 7)[id number], [id number]_[facility] FDA Start: 07-17-2022 Sleeve Hip -3mm Os Tpr G7 Blx D Opt Ti Centering Ty 1 Rpl [id number] - [id number] Start: 07-17-2022 Head Fem 28mm Bl x D Opt Hip Rpl [id number] - [id number] Start: 07-17-2022 [employer] FDA Start: 08-19-2017 [employer] FDA Start: 08-19-2017 Tenodensis Graft Sizing Kit [id number] Start: 10-20-2024 Fhl Implant Syst em 6.25mm [id number] Start: 10-20-2024 Goals Date Patient Goal Desired Activity /State Personal health goal Comment on above: Formatting of this n ote might be different from the original. Evaluation of progress towards goal: Patient will discharge to inpatient rehab. - Romeo Valentino RN 04/25/24 10:18 AM Personal health goal Comment on above: Formatting of this n ote might be different from the original. Evaluation of progress towards goal: Maximize work with PT at discharge to strengthen L HIP Functional Status Date Assessment Result Facility 01-14-2025 Patient Health Questionnaire 2 item (PHQ-2) [Reported] [facility] 01-14-2025 PHQ-9 quick depressi on assessment panel [Reported.PHQ] [facility] 06-02-2024 Functional status Patient is Pro gressing Toward [facility] Work Phone: 04-24-2024 Functional Status N/A [facility] Mental Status Date Assessment Result Facility 06-02-2024 Cognitive function Cognitive Sta tus Patient at Baseline [facility] Work Phone: Clinical Notes 07-12-2010 to 01-14-2025 Cheryl Alicea NP - 01/14/2025 10:45 AM Trevor Johnson DPM - 01/11/2025 1:52 PM EDTTelephone Encounter - Umm Otoole - 01/07/2025 9:37 AM EDIlan Alicea NP - 12/28/2024 10:45 AM EDT Note Date & Type Note Facility 01-14-2025 History of Present illness Narrative Images from the original note were not included. Deloris Bae is a 69 y.o. female presents with chief complaint of Depression HPI: History of Present Illness The patient is a 69-year-old female who presents today to discuss her depression. Depression She has been experiencing feelings of unhappiness and dissatisfaction with her life for the past few months, which have progressively worsened. She reports a lack of interest in activities she previously enjoyed and expresses a desire to isolate herself. She also mentions feeling down, depressed, and hopeless on a daily basis. Her sleep is generally good, although she struggles with staying asleep more than half of the days. She feels fatigued and low on energy every day and often feels guilty about being a burden to others. She does not have difficulty reading or watching TV and does not exhibit slow movement or speech. She does not endorse suicidal ideation but admits to occasional thoughts of wishing she were not alive, although she has no intention of acting on these thoughts. She has been on bupropion 300 mg for an extended period without any dosage adjustments. She also takes alprazolam as needed for anxiety. - Onset: Past few months. - Duration: Progressive worsening over the past few months. - Character: Feelings of unhappiness, dissatisfaction, lack of interest, desire to isolate, feeling down, depressed, and hopeless. - Alleviating/Aggravating Factors: No dosage adjustments to bupropion; alprazolam as needed for anxiety. - Timing: Daily feelings of depression and hopelessness; struggles with staying asleep more than half of the days. - Severity: Fatigued and low on energy every day; occasional thoughts of wishing she were not alive but no intention of acting on these thoughts. Synopsis [employer] Most Recent Value Past ~4 weeks 01/14/2025 10:00 PHQ 2/9 Trouble falling or staying asleep, or sleeping too much 2 01/14/2025 2 Feeling tired or having little energy 3 01/14/2025 3 Feeling bad about yourself - or that you are a failure or have let yourself or your family down 3 01/14/2025 3 Trouble concentrating on things, such as reading the newspaper or watching television 0 01/14/2025 0 Moving or speaking so slowly that other people could have noticed? Or the opposite - being so fidgety or restless that you have been moving around a lot more than usual. 0 01/14/2025 0 Thoughts that you would be better off or hurting yourself in some way 2 01/14/2025 2 Little interest or pleasure in doing things 3 01/14/2025 3 Feeling down, depressed, or hopeless 3 01/14/2025 3 Patient Health Questionnaire-2 Score 6 01/14/2025 6 Fall and Aftermath She had a stroke in the past. She had a fall in 07/[address] scan of her head, which was normal. She is following up with neurology and has an appointment with Dr. Sapp, neurologist, on 02/04/2025. She also has an appointment with Dr. Celaya, neurologist, this month. She is planning to call Dr. Solomon to set up an appointment to get her shoulder fixed as she did some damage with that fall in her shoulder, tore some ligaments and tendons. - Onset: Fall in 07/2024. - Location: Shoulder. - Character: Damage to shoulder, tore ligaments and tendons. - Alleviating/Aggravating Factors: Planning to call Dr. Solomon to set up an appointment to get her shoulder fixed. - Timing: Follow-up with neurology; appointments with Dr. Sapp and Dr. Celaya this month. Social History: Sleep: She reports mostly good sleep but struggles with staying asleep more than half of the days. I have reviewed and reconciled the history and medication list with the patient today. HISTORIES: PAST MEDICAL HISTORY: Past Medical History: Diagnosis Date Acute right MCA stroke (HCC) 12/27/2024 Degenerative joint disease of sacroiliac joint 10/06/2023 Fibrocystic breast Generalized anxiety disorder 10/21/2022 History of CVA (cerebrovascular accident) 05/28/2023 Marginal ulcer 10/06/2023 Moderate major depression (HCC) 10/21/2022 Multilevel degenerative disc disease Neurogenic bladder 12/27/2024 Osteoporosis Paroxysmal SVT (supraventricular tachycardia) ([facility]) 07/22/2024 Polymyalgia rheumatica ([facility]) 10/21/2022 Primary osteoarthritis involving multiple joints 02/27/2022 Pure hypercholesterolemia 04/01/2023 S/P bariatric surgery SURGICAL HISTORY: Past Surgical History: Procedure Laterality Date APPENDECTOMY 1972 BACK SURGERY 2001 BREAST SURGERY 1980 reduction CARPAL TUNNEL RELEASE CARPAL TUNNEL RELEASE Right 11/22/2022 DR RAMÍREZ CHOLECYSTECTOMY 1982 COLONOSCOPY 2009 COLONOSCOPY 11/30/2018 COLONOSCOPY W/ BIOPSIES EGD 12/24/2023 anastomotic ulcer ESOPHAGOSCOPY / EGD 06/28/2019 FINGER SURGERY 2008 foreign body surgery FINGER SURGERY Left 01/30/2021 [facility] arthroplasty FOOT SURGERY Left 10/20/2024 left transfer tendon lower extremity Dr Lancaster GASTRIC BYPASS 02/2008 HIP ARTHROPLASTY Right 2016 DR. YEN HYSTERECTOMY 1989 JOINT REPLACEMENT 2005 and 2022 hips LUMBAR FUSION 01/2014 3 vertebrae w/ 4 cages NERVE SURGERY ablation, 11/21 & 12/06/2019 OTHER SURGICAL HISTORY 05/16/2017 L4/L5 Nerve Facet Block OTHER SURGICAL HISTORY 08/19/2017 TVT-O OTHER SURGICAL HISTORY 03/2022 RFA L5, S1-S3 REVISION TOTAL HIP ARTHROPLASTY Left 07/17/2022 SPINE SURGERY 01/2014 TONSILLECTOMY 1972 TOTAL ABDOMINAL HYSTERECTOMY 1988 RSO TOTAL HIP ARTHROPLASTY Right 03/2016 TUBAL LIGATION VAGINA SURGERY ablation VAGINECTOMY partial simple vaginectomy & laser SOCIAL HISTORY: Social History Tobacco Use Smoking status: Former Current packs/day: 0.00 Average packs/day: 1.5 packs/day for 15.0 years (22.5 ttl pk-yrs) Types: Cigarettes Quit date: 10/20/2006 Years since quittin.2 Smokeless tobacco: Never Vaping Use Vaping status: Never Used Substance Use Topics Alcohol use: Not Currently Alcohol/week: 3.0 - 4.0 standard drinks of alcohol Comment: 6+ drinks monthly. Caffine intake: 1-2 cups per day Drug use: Never Depression: At risk (01/14/2025) PHQ-2 PHQ-2 Score: 6 FAMILY HISTORY: Family History Problem Relation Name Age of Onset Cancer Mother Minoo Ríos Heart disease Mother Minoo Ríos Hypertension Mother Minoo Ríos Lung cancer Father George Ríos Cancer Father George Ríos Cancer Brother Tamia Ríos Cancer Brother Wolfgang Ríos MEDICATIONS: Current Outpatient Medications Medication Instructions ALPRAZolam (XANAX) 0.25 mg, Oral, 3 times daily PRN apixaban (ELIQUIS) 5 mg, Oral, 2 times daily ARIPiprazole (ABILIFY) 2 mg, Oral, Daily [START ON 01/21/2025] ARIPiprazole (ABILIFY) 5 mg, Oral, Daily buPROPion XL (WELLBUTRIN XL) 150 mg, Oral, Every morning, Do not crush, chew, or split. Calcium Carbonate-Vit D-Min (CALTRATE 600+D PLUS MINERALS PO) Take by mouth. cholecalciferol (Vitamin D3) 25 MCG (1000 UT) tablet Every 24 hours cyanocobalamin (Vitamin B-12) 500 MCG tablet Every 24 hours cyclobenzaprine (FLEXERIL) 5 mg, Oral, 3 times daily PRN denosumab (PROLIA) 60 mg, Subcutaneous, Every 6 months ezetimibe (ZETIA) 10 mg, Oral, Daily Multiple Vitamins-Minerals (PRESERVISION AREDS 2 PO) Every 24 hours omeprazole (PRILOSEC) 40 mg, 2 times daily before meals ALLERGIES: No Known Allergies PHYSICAL EXAM: Visit Vitals BP 132/82 Pulse 94 Wt 139 lb SpO2 99% BMI 23.86 kg/m Smoking Status Former BSA 1.69 m BP Readings from Last 3 Encounters: 01/14/25 132/82 12/28/24 118/78 08/25/24 122/62 Wt Readings from Last 3 Encounters: 01/14/25 139 lb 12/28/24 139 lb 09/28/24 140 lb Physical Exam HENT: Mouth/Throat: Mouth: Mucous membranes are moist. Cardiovascular: Rate and Rhythm: Normal rate and regular rhythm. Heart sounds: No murmur heard. No friction rub. No gallop. Pulmonary: Effort: Pulmonary effort is normal. Breath sounds: Normal breath sounds. Skin: General: Skin is warm and dry. Neurological: Mental Status: She is alert and oriented to person, place, and time. Psychiatric: Mood and Affect: Affect is tearful. Speech: Speech is not rapid and pressured, delayed or slurred. Behavior: Behavior is not agitated, aggressive, withdrawn, hyperactive or combative. Thought Content: Thought content normal. Thought content is not paranoid. Thought content does not include suicidal ideation. Thought content does not include suicidal plan. Results Imaging - CT scan of head: 07/2024, Normal ASSESSMENT AND PLAN: Assessment & Plan 1. Moderate major depression (HCC) (Primary) Depression: Chronic. - Symptoms align with a diagnosis of depression, potentially exacerbated by stroke and subsequent limitations. The patient reports feeling progressively worse over the past few months, with a desire to isolate and lack of interest in activities. Denies suicidal ideation but expresses frequent thoughts of wishing she wasn't here. She informs me she would not do anything to hurt herself as she loves her family and grandchildren too much to do anything like that. - She does not wish to do counseling at this time. - Encouraged to get back to hinduism in person or online. - Suggested getting outside and walking or doing things that she enjoys. She has been isolating more and we discussed she has to break this cycle. - Reduce bupropion dosage to 150 mg. - Introduce aripiprazole at 2 mg daily for 7 days, then increase to 5 mg daily. - Alprazolam to be taken as needed for anxiety. - Counseling and engagement in activities that bring eric recommended. - If any adverse effects from medication or if pt worsening in symptoms I asked that she please contact us or go to ER. - Medication sent to pharmacy. - buPROPion XL (Wellbutrin XL) 150 MG 24 hr tablet; Take 1 tablet (150 mg) by mouth in the morning. Do not crush, chew, or split. Dispense: 30 tablet; Refill: 3 - ARIPiprazole (Abilify) 2 MG tablet; Take 1 tablet (2 mg) by mouth Daily for 7 days Dispense: 7 tablet; Refill: 0 - ARIPiprazole (Abilify) 5 MG tablet; Take 1 tablet (5 mg) by mouth Daily Do not start before January 21, 2025. Dispense: 30 tablet; Refill: 3 2. History of CVA (cerebrovascular accident) Stable. Continue risk factor modification. Follow up with Neurology in [place] and then locally. Follow-up - 01/31/2025. Dr. France was not in the office at time of visit, but was available via real-time, audio/visual technology to supervise patient care. I am following Dr. France's plan of care for the above issues. documented in this encounter [facility] 01-11-2025 Note HNO ID: [id number] Author: TREVOR LANCASTER DPM Service: ? Author Type: Physician Type: Progress Notes Filed: 01/11/2025 14:11 Note Text: Deloris Bae 69 year old female January 11, 2025 Pain Scales: Verbal (Numeric Rating or Visual Analog Scale) Pain Level: 0 Pain Location: Foot-Left Description: Tenderness Duration Amount of Time: 12 Duration Units: Weeks (post op) Frequency: Intermittent Comments: She is here for a 12 week post op of the left foot. Surgery performed on 10/20/24. HPI: Patient presents for postop follow up. Patient has been doing well with minimal discomfort. Denies nausea, vomiting, fever, chills, sweats, shortness of breath. No new complaints. Wearing regular street shoes today Use cane O: No pain out of proportion. Calf soft nontender, no signs of Deep Venous thrombosis. Good range of motion of the ankle and midfoot. Anterior tibial tendon transfer functioning well Gait with significant improvement / near neutral Steppage gait with drop foot ,however, significant improvement from pre operative A: Progressing well post operative Z86.73 History of CVA (cerebrovascular accident) (primary encounter diagnosis) M21.372 Left foot drop M24.575 Foot contracture, left G81.94 Hemiparesis of left nondominant side, unspecified hemiparesis etiology ([facility]) R26.2 Difficulty walking P: activity as tolerated if no symptoms with or without CAM walker boot Medically necessary for custom ankle foot orthosis (AFO) Type of brace or insert requested: custom ankle foot orthosis (AFO) with hinge ankle dorsiflexion assist How it will help with ADL (activities of daily living) : brace will provide mechanical support and assist with ambulation and ADL (activities of daily living) specifically will help patient to community ambulate Length of time needed for durable medical equipment device : Medically necessary Duration of Need for custom ankle foot orthosis : LIFETIME Diagnosis codes that support the medically necessity of brace: Z86.73 History of CVA (cerebrovascular accident) (primary encounter diagnosis) M21.372 Left foot drop M24.575 Foot contracture, left G81.94 Hemiparesis of left nondominant side, unspecified hemiparesis etiology (HCC) R26.2 Difficulty walking I gave out my personal mobile telephone number [phone] to call at anytime if needed Trevor Lancaster DPM [facility] 01-11-2025 History of Present illness Narrative Deloris Bae 69 year old female January 11, 2025 Pain Scales: Verbal (Numeric Rating or Visual Analog Scale) Pain Level: 0 Pain Location: Foot-Left Description: Tenderness Duration Amount of Time: 12 Duration Units: Weeks (post op) Frequency: Intermittent Comments: She is here for a 12 week post op of the left foot. Surgery performed on 10/20/24. HPI: Patient presents for postop follow up. Patient has been doing well with minimal discomfort. Denies nausea, vomiting, fever, chills, sweats, shortness of breath. No new complaints. Wearing regular street shoes today Use cane O: No pain out of proportion. Calf soft nontender, no signs of Deep Venous thrombosis. Good range of motion of the ankle and midfoot. Anterior tibial tendon transfer functioning well Gait with significant improvement / near neutral Steppage gait with drop foot ,however, significant improvement from pre operative A: Progressing well post operative Z86.73 History of CVA (cerebrovascular accident) (primary encounter diagnosis) M21.372 Left foot drop M24.575 Foot contracture, left G81.94 Hemiparesis of left nondominant side, unspecified hemiparesis etiology (HCC) R26.2 Difficulty walking P: activity as tolerated if no symptoms with or without CAM walker boot Medically necessary for custom ankle foot orthosis (AFO) Type of brace or insert requested: custom ankle foot orthosis (AFO) with hinge ankle dorsiflexion assist How it will help with ADL (activities of daily living) : brace will provide mechanical support and assist with ambulation and ADL (activities of daily living) specifically will help patient to community ambulate Length of time needed for durable medical equipment device : Medically necessary Duration of Need for custom ankle foot orthosis : LIFETIME Diagnosis codes that support the medically necessity of brace: Z86.73 History of CVA (cerebrovascular accident) (primary encounter diagnosis) M21.372 Left foot drop M24.575 Foot contracture, left G81.94 Hemiparesis of left nondominant side, unspecified hemiparesis etiology ([facility]) R26.2 Difficulty walking I gave out my personal mobile telephone number [phone] to call at anytime if needed Trevor Lancaster DPM documented in this encounter [facility] 01-07-2025 Miscellaneous Notes Left total hip replacement on 07/17/[address] Yen Patient called, up coming dental appointment on 01/18/2025. Would like pre dental antibiotics sent to [facility] at [address] [place] [address] if they are still needed. documented in this encounter [facility] 01-07-2025 Telephone encounter Note Left total hip replacement on 07/17/[address] Yen Patient called, up coming dental appointment on 01/18/2025. Would like pre dental antibiotics sent to [facility] at [address] [place] [address] if they are still needed. [facility] 12-28-2024 History of Present illness Narrative Images from the original note were not included. Deloris Bae is a 69 y.o. female presents with chief complaint of Neck Pain (Pain began 2-3 weeks ago and is worsening. Pain and difficulty with turning head and looking up. Applying heat worsens pain. Ice is ineffective. ) HPI: History of Present Illness The patient is a 69-year-old female who presents today for acute complaints. Neck Stiffness and Pain She has been experiencing neck stiffness for the past 2 to 3 weeks, which occasionally escalates to severe pain. She reports no headaches or arm weakness. She has not changed her pillow recently and does not spend excessive time looking down at her phone. She reports no tingling sensation or weakness in her hands. She has attempted to alleviate the discomfort with Tylenol, but it has proven ineffective. She has also tried using heat, but it did not provide significant relief. She has been performing stretching exercises on her own. - Onset: Past 2 to 3 weeks. - Duration: Persistent for 2 to 3 weeks. - Character: Neck stiffness occasionally escalating to severe pain. - Alleviating/Aggravating Factors: Tylenol and heat have been ineffective; performing stretching exercises. - Severity: Severe pain occasionally. She mentions a past incident where she fell backwards and subsequently had a CAT scan of her neck, which revealed multilevel arthritis. She has not had another fall since then. Foot and Toe Surgery She reports having had surgery on her foot and toe by Dr. Lancaster at the [facility]. The procedure involved fixing a drop foot condition by adjusting tendons and placing a pin in her toe to prevent curling. She no longer requires a brace for her foot. Social History: Hobbies: Camping PAST SURGICAL HISTORY: Foot and toe surgery by Dr. Lancaster at the [facility] I have reviewed and reconciled the history and medication list with the patient today. HISTORIES: PAST MEDICAL HISTORY: Past Medical History: Diagnosis Date Acute right MCA stroke ([facility]) 12/27/2024 Degenerative joint disease of sacroiliac joint 10/06/2023 Fibrocystic breast Generalized anxiety disorder 10/21/2022 History of CVA (cerebrovascular accident) 05/28/2023 Marginal ulcer 10/06/2023 Moderate major depression ([facility]) 10/21/2022 Multilevel degenerative disc disease Neurogenic bladder 12/27/2024 Osteoporosis Paroxysmal SVT (supraventricular tachycardia) ([facility]) 07/22/2024 Polymyalgia rheumatica ([facility]) 10/21/2022 Primary osteoarthritis involving multiple joints 02/27/2022 Pure hypercholesterolemia 04/01/2023 S/P bariatric surgery SURGICAL HISTORY: Past Surgical History: Procedure Laterality Date APPENDECTOMY 1972 BACK SURGERY 2000 BREAST SURGERY 1980 reduction CARPAL TUNNEL RELEASE CARPAL TUNNEL RELEASE Right 11/22/2022 DR RAMÍREZ CHOLECYSTECTOMY 1982 COLONOSCOPY 2009 COLONOSCOPY 11/30/2018 COLONOSCOPY W/ BIOPSIES EGD 12/24/2023 anastomotic ulcer ESOPHAGOSCOPY / EGD 06/28/2019 FINGER SURGERY 2008 foreign body surgery FINGER SURGERY Left 01/30/2021 [facility] arthroplasty FOOT SURGERY Left 10/20/2024 left transfer tendon lower extremity Dr Lancaster GASTRIC BYPASS 02/2008 HIP ARTHROPLASTY Right 2016 DR. YEN HYSTERECTOMY 1989 JOINT REPLACEMENT 2006 and 2022 hips LUMBAR FUSION 01/2014 3 vertebrae w/ 4 cages NERVE SURGERY ablation, 11/21 & 12/06/2019 OTHER SURGICAL HISTORY 05/16/2017 L4/L5 Nerve Facet Block OTHER SURGICAL HISTORY 08/19/2017 TVT-O OTHER SURGICAL HISTORY 03/2022 RFA L5, S1-S3 REVISION TOTAL HIP ARTHROPLASTY Left 07/17/2022 SPINE SURGERY 01/2014 TONSILLECTOMY 1972 TOTAL ABDOMINAL HYSTERECTOMY 1989 RSO TOTAL HIP ARTHROPLASTY Right 03/2016 TUBAL LIGATION VAGINA SURGERY ablation VAGINECTOMY partial simple vaginectomy & laser SOCIAL HISTORY: Social History Tobacco Use Smoking status: Former Current packs/day: 0.00 Average packs/day: 1.5 packs/day for 15.0 years (22.5 ttl pk-yrs) Types: Cigarettes Quit date: 10/20/2006 Years since quittin.2 Smokeless tobacco: Never Vaping Use Vaping status: Never Used Substance Use Topics Alcohol use: Not Currently Alcohol/week: 3.0 - 4.0 standard drinks of alcohol Comment: 6+ drinks monthly. Caffine intake: 1-2 cups per day Drug use: Never Depression: Not at risk (11/03/2024) Received from [facility] PHQ-2 PHQ-2 score: 0 FAMILY HISTORY: Family History Problem Relation Name Age of Onset Cancer Mother Minoo Ríos Heart disease Mother Minoo Ríos Hypertension Mother Minoo Ríos Lung cancer Father George Ríos Cancer Father George Ríos Cancer Brother Tamia Ríos Cancer Brother Wolfgang Ríos MEDICATIONS: Current Outpatient Medications Medication Instructions ALPRAZolam (XANAX) 0.25 mg, Oral, 3 times daily PRN apixaban (ELIQUIS) 5 mg, Oral, 2 times daily buPROPion XL (WELLBUTRIN XL) 300 mg, Oral, Every 24 hours Calcium Carbonate-Vit D-Min (CALTRATE 600+D PLUS MINERALS PO) Take by mouth. cholecalciferol (Vitamin D3) 25 MCG (1000 UT) tablet Every 24 hours cyanocobalamin (Vitamin B-12) 500 MCG tablet Every 24 hours cyclobenzaprine (FLEXERIL) 5 mg, Oral, 3 times daily PRN denosumab (PROLIA) 60 mg, Subcutaneous, Every 6 months ezetimibe (ZETIA) 10 mg, Oral, Daily Multiple Vitamins-Minerals (PRESERVISION AREDS 2 PO) Every 24 hours omeprazole (PRILOSEC) 40 mg, 2 times daily before meals ALLERGIES: No Known Allergies PHYSICAL EXAM: Visit Vitals BP 118/78 (BP Location: Left arm, Patient Position: Sitting) Pulse 90 Ht 5' 4 Wt 139 lb SpO2 98% BMI 23.86 kg/m Smoking Status Former BSA 1.69 m BP Readings from Last 3 Encounters: 12/28/24 118/78 08/25/24 122/62 08/11/24 124/76 Wt Readings from Last 3 Encounters: 12/28/24 139 lb 09/28/24 140 lb 09/10/24 140 lb Physical Exam Musculoskeletal: Cervical back: Torticollis present. No rigidity. Muscular tenderness present. Decreased range of motion. Skin: General: Skin is warm and dry. Neurological: Mental Status: She is alert and oriented to person, place, and time. Psychiatric: Mood and Affect: Mood normal. Thought Content: Thought content normal. Results Imaging - CAT scan of the neck: Multilevel arthritis ASSESSMENT AND PLAN: Assessment & Plan 1. Cervicalgia (Primary) Neck stiffness: Acute. - CAT scan revealed multilevel arthritis. - Physical therapy recommended for 2 to 4 weeks to improve range of motion. - Apply heat and massage the affected area. - Muscle relaxer to be taken at night to alleviate discomfort. - Ambulatory referral to Physical Therapy; Future 2. Primary osteoarthritis involving multiple joints She is no longer using pain medications. Discussed using Tylenol as needed. Drop foot: Chronic. - Recent surgery to correct drop foot and bunion. - Tendon transfer and pin placement in toe performed by Dr. Lancaster at [facility]. Follow-up - Recheck heart rate due to initial elevated reading. documented in this encounter [facility] 12-01-2024 Miscellaneous Notes Per December 2024 recall, patient is due for a follow up with Vascular fellow. Please call to schedule. Called patient and left Vm Called patient and left VM Called spouse and left VM Patient called in and we scheduled a video appt documented in this encounter [facility] 12-01-2024 Telephone encounter Note Per December 2024 recall, patient is due for a follow up with Vascular fellow. Please call to schedule. [facility] 12-01-2024 Telephone encounter Note Called patient and left Vm [facility] 12-01-2024 Telephone encounter Note Called patient and left VM Called spouse and left VM [facility] 12-01-2024 Telephone encounter Note Patient called in and we scheduled a video appt [facility] 11-30-2024 Note HNO ID: [id number] Author: TREVOR LANCASTER DPM Service: ? Author Type: Physician Type: Progress Notes Filed: 11/30/2024 15:47 Note Text: This 69 year old female presents today for post-op visit. Deloris Bae Date of service: November 30, 2024 HPI: Patient presents for postop follow up. Short leg neutral fiberglass cast removed Patient has been doing well with minimal discomfort. Denies nausea, vomiting, fever, chills, sweats, shortness of breath. No new complaints. O: Neurovascular status is grossly intact. Surgical site without signs of infection, no dehisence. Minimal residual edema consistent with surgical intervention. Incisions healed. No pain out of proportion. Alignment good. ROM as expected. Calf soft nontender, no signs of Deep Venous thrombosis. See Epic photo uploaded today: November 30, 2024 A: Progressing well post op P: Continue protective measures with support. Fit and dispense tall CAM walker boot to allow very limited weight bearing. I discussed with the patient home rehabilitation Will begin formal physical therapy in 6 weeks Return to the office in 6 weeks for reevaluation or sooner should problems arise. Call if any problems arise prior to next visit. I gave out my personal mobile telephone number [phone] to call at anytime if needed. Instructed that if I am not available should contact the solutions operator block breaker operator or go to the emergency room. Trevor Lancaster D.P.M. [facility] 11-30-2024 History of Present illness Narrative This 69 year old female presents today for post-op visit. Deloris Bae Date of service: November 30, 2024 HPI: Patient presents for postop follow up. Short leg neutral fiberglass cast removed Patient has been doing well with minimal discomfort. Denies nausea, vomiting, fever, chills, sweats, shortness of breath. No new complaints. O: Neurovascular status is grossly intact. Surgical site without signs of infection, no dehisence. Minimal residual edema consistent with surgical intervention. Incisions healed. No pain out of proportion. Alignment good. ROM as expected. Calf soft nontender, no signs of Deep Venous thrombosis. See Epic photo uploaded today: November 30, 2024 A: Progressing well post op P: Continue protective measures with support. Fit and dispense tall CAM walker boot to allow very limited weight bearing. I discussed with the patient home rehabilitation Will begin formal physical therapy in 6 weeks Return to the office in 6 weeks for reevaluation or sooner should problems arise. Call if any problems arise prior to next visit. I gave out my personal mobile telephone number [phone] to call at anytime if needed. Instructed that if I am not available should contact the solutions operator block breaker operator or go to the emergency room. Trevor Lancaster D.P.M. documented in this encounter [facility] 11-30-2024 Note HNO ID: [id number] Author: TRIP CARLSON OCCA Service: ? Author Type: Financial Cost Analyst Type: Progress Notes Filed: 11/30/2024 15:36 Note Text: PT ASSESSMENT - CASTING ROOM Deloris presents for cast removal and Application of boot. Examined by Dr. Cann. Wadsworth with [employer] applied pneumatic aircast walker to Left leg. Device will be billed by [employer]. Patient has been instructed in Care of boot. SARAH Porras [facility] 11-30-2024 History of Present illness Narrative PT ASSESSMENT - CASTING ROOM Deloris presents for cast removal and Application of boot. Examined by Dr. Cann. Wadsworth with [employer] applied pneumatic aircast walker to Left leg. Device will be billed by [employer]. Patient has been instructed in Care of boot. SARAH Porras documented in this encounter [facility] 11-30-2024 Telephone encounter Note Called and informed patient is requesting the patient come to [place] for evaluation and possible cast change. [facility] 11-30-2024 Miscellaneous Notes Called and informed patient is requesting the patient come to [place] for evaluation and possible cast change. documented in this encounter [facility] 11-25-2024 Note HNO ID: [id number] Author: JOSE ROBERTS OCCA Service: ? Author Type: Financial Cost Analyst Type: Progress Notes Filed: 11/25/2024 13:59 Note Text: Applied a short leg weight bearing cast to the left leg. Instruction given on care. Patient will follow up as scheduled/prn. SARAH Carolina [facility] 11-25-2024 History of Present illness Narrative Applied a short leg weight bearing cast to the left leg. Instruction given on care. Patient will follow up as scheduled/prn. SARAH Carolina documented in this encounter [facility] 11-25-2024 Note HNO ID: [id number] Author: TREE MENON RT(Aretha) Service: ? Author Type: Technologist Type: Progress Notes Filed: 11/25/2024 13:26 Note Text: Radiology Service Progress Note PATIENT NAME: Deloris Bae DATE OF SERVICE: November 25, 2024 TIME: 1:26 PM PATIENT IDENTITY VERIFICATION COMPLETED USING TWO (2) IDENTIFIERS: Name and Date of confirmed by patient verbally. FALL SCREENING: Has the patient had 2 falls in the last year or 1 fall with injury or currently using an Ambulatory Assistive Device (Walker, Cane, Wheelchair, Crutches, etc.)? Yes, Patient High Risk for Falls What interventions were put in place to prevent falls during this visit? Instructed Patient to Call for Help if Needed, Offered Assistance with Transfers/Clothing, Instructed Patient to Remain Seated (Not on Exam Table) Until Exam, and Increased Observations by Caregivers PATIENT GENDER DATA: Assigned female at . status: : No status: NO. PATIENT RELEVANT IMPLANT DATA REVIEWED: Not Applicable PATIENT PRESENTS WITH AN IMPLANTABLE OR ATTACHED CLERK RATING: No RADIOLOGY DEPARTMENT: General X-ray: Exam(s) Completed: Lower Extremity X-Ray(s): Foot, Left and Wt. Bearing PERIPHERAL IV DATA: Not applicable SIGNED BY: RT Mark(R) November 25, 2024 1:26 PM [facility] 11-25-2024 History of Present illness Narrative Radiology Service Progress Note PATIENT NAME: Deloris Bae DATE OF SERVICE: November 25, 2024 TIME: 1:26 PM PATIENT IDENTITY VERIFICATION COMPLETED USING TWO (2) IDENTIFIERS: Name and Date of confirmed by patient verbally. FALL SCREENING: Has the patient had 2 falls in the last year or 1 fall with injury or currently using an Ambulatory Assistive Device (Walker, Cane, Wheelchair, Crutches, etc.)? Yes, Patient High Risk for Falls What interventions were put in place to prevent falls during this visit? Instructed Patient to Call for Help if Needed, Offered Assistance with Transfers/Clothing, Instructed Patient to Remain Seated (Not on Exam Table) Until Exam, and Increased Observations by Caregivers PATIENT GENDER DATA: Assigned female at . status: : No status: NO. PATIENT RELEVANT IMPLANT DATA REVIEWED: Not Applicable PATIENT PRESENTS WITH AN IMPLANTABLE OR ATTACHED CLERK RATING: No RADIOLOGY DEPARTMENT: General X-ray: Exam(s) Completed: Lower Extremity X-Ray(s): Foot, Left and Wt. Bearing PERIPHERAL IV DATA: Not applicable SIGNED BY: RT Mark(R) November 25, 2024 1:26 PM documented in this encounter [facility] 11-25-2024 Note HNO ID: [id number] Author: TREVOR LANCASTER DPM Service: ? Author Type: Physician Type: Progress Notes Filed: 11/25/2024 13:45 Note Text: This 69 year old female presents today for post-op visit. Date of service: November 25, 2024 No chief complaint on file. /Pain Level: 4 Pain Location: Foot-Left Description: Aching, Cramping, Pulsating, Spasm, Tenderness Duration Units: Days Frequency: Continuous Intervention/Comfort measure: Medication, Reposition, Relaxation Comments: Elevates HPI: Patient presents for postop follow up. Patient has been doing well with minimal discomfort. Denies nausea, vomiting, fever, chills, sweats, shortness of breath. No new complaints. O: Neurovascular status is grossly intact. Surgical site without signs of infection, no dehisence. Moderate residual edema consistent with surgical intervention. Incisions well coapted. No pain out of proportion. Alignment good. ROM as expected. Calf soft nontender, no signs of Deep Venous thrombosis. A: Progressing well post op P: Continue protective measures with support. K-wire second toe removed NWB cast applied with cast shoe to allow very limited weight bearing. Return to the office in 3 weeks for reevaluation or sooner should problems arise. Call if any problems arise prior to next visit. Probable convert to CAM walker boot and begin physical therapy next visit I gave out my personal mobile telephone number [phone] to call at anytime if needed. Instructed that if I am not available should contact the solutions operator block breaker operator or go to the emergency room. Trevor Lancaster D.P.M. [facility] 11-25-2024 History of Present illness Narrative This 69 year old female presents today for post-op visit. Date of service: November 25, 2024 No chief complaint on file. /Pain Level: 4 Pain Location: Foot-Left Description: Aching, Cramping, Pulsating, Spasm, Tenderness Duration Units: Days Frequency: Continuous Intervention/Comfort measure: Medication, Reposition, Relaxation Comments: Elevates HPI: Patient presents for postop follow up. Patient has been doing well with minimal discomfort. Denies nausea, vomiting, fever, chills, sweats, shortness of breath. No new complaints. O: Neurovascular status is grossly intact. Surgical site without signs of infection, no dehisence. Moderate residual edema consistent with surgical intervention. Incisions well coapted. No pain out of proportion. Alignment good. ROM as expected. Calf soft nontender, no signs of Deep Venous thrombosis. A: Progressing well post op P: Continue protective measures with support. K-wire second toe removed NWB cast applied with cast shoe to allow very limited weight bearing. Return to the office in 3 weeks for reevaluation or sooner should problems arise. Call if any problems arise prior to next visit. Probable convert to CAM walker boot and begin physical therapy next visit I gave out my personal mobile telephone number [phone] to call at anytime if needed. Instructed that if I am not available should contact the solutions operator block breaker operator or go to the emergency room. Trevor Lancaster D.P.M. documented in this encounter [facility] 11-11-2024 Telephone encounter Note Prescription Refill Information The patient has been identified by name and date of : Yes Caregiver verified no other encounters exist for this prescription request: Yes Caregiver confirmed with patient/requestor that no other refills are due, in the near future, with this provider at this time: Yes The last office visit in the department: 11/10/24 Does the patient have a future office visit with this provider/department: Yes Requested Prescriptions Pending Prescriptions Disp Refills cyclobenzaprine (FLEXERIL) 10 mg tablet 90 tablet 0 Sig: Take 1 tablet by mouth three times a day as needed for muscle spasm. Lauren Griffin November 11, 2024 10:59 AM [facility] 11-11-2024 Miscellaneous Notes Prescription Refill Information The patient has been identified by name and date of : Yes Caregiver verified no other encounters exist for this prescription request: Yes Caregiver confirmed with patient/requestor that no other refills are due, in the near future, with this provider at this time: Yes The last office visit in the department: 11/10/24 Does the patient have a future office visit with this provider/department: Yes Requested Prescriptions Pending Prescriptions Disp Refills cyclobenzaprine (FLEXERIL) 10 mg tablet 90 tablet 0 Sig: Take 1 tablet by mouth three times a day as needed for muscle spasm. Lauren Griffin November 11, 2024 10:59 AM documented in this encounter [facility] 11-10-2024 Note Addended by: Go LANCASTER on: 11/10/2024 04:25 PM Modules accepted: Orders [facility] 11-10-2024 Miscellaneous Notes Addended by: TREVOR LANCASTER on: 11/10/2024 04:25 PM Modules accepted: Orders documented in this encounter [facility] 11-10-2024 Note HNO ID: [id number] Author: EVENS MCKEON Cast Tech Service: ? Author Type: New Product Trainer Type: Progress Notes Filed: 11/10/2024 16:10 Note Text: Patient in today for scheduled appointment. Cast removed. Left leg cleansed with sea-clens and debrisoft. Examined by Dr. Lancaster. Applied A Short Leg Non-Weightbearing Cast to the left leg. Instructions on cast care given. A large Cast Shoe was dispensed for protection only. Will f/u as scheduled/prn. SHUBHAM Duarte [facility] 11-10-2024 History of Present illness Narrative Patient in today for scheduled appointment. Cast removed. Left leg cleansed with sea-clens and debrisoft. Examined by Dr. Lancaster. Applied A Short Leg Non-Weightbearing Cast to the left leg. Instructions on cast care given. A large Cast Shoe was dispensed for protection only. Will f/u as scheduled/prn. SHUBHAM Duarte documented in this encounter [facility] 11-10-2024 Note HNO ID: [id number] Author: TREVOR LANCASTER DPM Service: ? Author Type: Physician Type: Progress Notes Filed: 11/10/2024 16:24 Note Text: This 69 year old female presents today for post-op visit. Date of service: November 10, 2024 Patient presents with: Left Foot - Established Patient, Post Op /Pain Scales: Verbal (Numeric Rating or Visual Analog Scale) Pain Level: 1 Pain Location: Foot-Left Description: Spasm Duration Amount of Time: 3 Duration Units: Weeks (post op) Frequency: Intermittent Intervention/Comfort measure: Medication (cast) Comments: She is here for a 3 week post op of the left foot. Surgery performed on 10/20/24. HPI: Patient presents for postop follow up. Patient has been doing well with minimal discomfort. Denies nausea, vomiting, fever, chills, sweats, shortness of breath. Complains of cramps Improved with Cyclobenzaprine ( Flexeril ) 10mg O: Surgical site without signs of infection, no dehisence. Moderate residual edema consistent with surgical intervention. Incisions well coapted. No pain out of proportion. ROM as expected. Calf soft nontender, no signs of Deep Venous thrombosis. Anterior tibial tendon transfer appears to be working with active ROM (Range of Motion) LEFT ANKLE A: Progressing well post op P: Continue protective measures with support. Sutures removed NWB neutral cast applied with cast shoe to allow very limited weight bearing. Return to the office in 2 weeks for planned cast change reevaluation or sooner should problems arise. Call if any problems arise prior to next visit. Rx Cyclobenzaprine ( Flexeril ) 10mg Side effects of medication discussed, warned of risks I gave out my personal mobile telephone number [phone] to call at anytime if needed. Instructed that if I am not available should contact the solutions operator block breaker operator or go to the emergency room. Trevor Lancaster D.P.M. [facility] 11-10-2024 History of Present illness Narrative This 69 year old female presents today for post-op visit. Date of service: November 10, 2024 Patient presents with: Left Foot - Established Patient, Post Op /Pain Scales: Verbal (Numeric Rating or Visual Analog Scale) Pain Level: 1 Pain Location: Foot-Left Description: Spasm Duration Amount of Time: 3 Duration Units: Weeks (post op) Frequency: Intermittent Intervention/Comfort measure: Medication (cast) Comments: She is here for a 3 week post op of the left foot. Surgery performed on 10/20/24. HPI: Patient presents for postop follow up. Patient has been doing well with minimal discomfort. Denies nausea, vomiting, fever, chills, sweats, shortness of breath. Complains of cramps Improved with Cyclobenzaprine ( Flexeril ) 10mg O: Surgical site without signs of infection, no dehisence. Moderate residual edema consistent with surgical intervention. Incisions well coapted. No pain out of proportion. ROM as expected. Calf soft nontender, no signs of Deep Venous thrombosis. Anterior tibial tendon transfer appears to be working with active ROM (Range of Motion) LEFT ANKLE A: Progressing well post op P: Continue protective measures with support. Sutures removed NWB neutral cast applied with cast shoe to allow very limited weight bearing. Return to the office in 2 weeks for planned cast change reevaluation or sooner should problems arise. Call if any problems arise prior to next visit. Rx Cyclobenzaprine ( Flexeril ) 10mg Side effects of medication discussed, warned of risks I gave out my personal mobile telephone number [phone] to call at anytime if needed. Instructed that if I am not available should contact the solutions operator block breaker operator or go to the emergency room. Trevor Lancaster D.P.M. documented in this encounter [facility] 11-02-2024 Telephone encounter Note Pt requesting a refill on Alprazolam to [facility] [place] [facility] 11-02-2024 Miscellaneous Notes Pt requesting a refill on Alprazolam to [facility] documented in this encounter [facility] 10-29-2024 Telephone encounter Note Provider notified yesterday and medication refilled. [facility] 10-29-2024 Miscellaneous Notes Provider notified yesterday and medication refilled. Pt called to follow up on below. Made aware that office is still waiting for Provider to respond. No further needs raised. Patient calling. She is out of Percocet now and the pain is terrible. States that Tylenol doesn't touch the pain. Flexeril helps the muscle spasms/cramps, she only has 4 of those left. Cast seems fine. She asks for a refill of pain medication as well as flexeril. Pharmacy and nkda verified. Cell, detailed message please documented in this encounter [facility] 10-28-2024 Telephone encounter Note Patient requests additional pain medication Rx sent for post operative pain medication Trevor Lancaster DPM [facility] 10-28-2024 Miscellaneous Notes Patient requests additional pain medication Rx sent for post operative pain medication Trevor Lancaster DPM documented in this encounter [facility] 10-28-2024 Telephone encounter Note Pt called to follow up on below. Made aware that office is still waiting for Provider to respond. No further needs raised. [facility] 10-28-2024 Telephone encounter Note Patient calling. She is out of Percocet now and the pain is terrible. States that Tylenol doesn't touch the pain. Flexeril helps the muscle spasms/cramps, she only has 4 of those left. Cast seems fine. She asks for a refill of pain medication as well as flexeril. Pharmacy and nkda verified. Cell, detailed message please [facility] 10-26-2024 Note HNO ID: [id number] Author: TRIP CARLSON OCCA Service: ? Author Type: Financial Cost Analyst Type: Progress Notes Filed: 10/26/2024 15:54 Note Text: PT ASSESSMENT - CASTING ROOM Deloris presents for Application of cast. Padding applied to pin in left 2nd toe. Applied short leg cast: to Left leg non-weight bearing Patient has been instructed in Care of cast. SARAH Porras [facility] 10-26-2024 History of Present illness Narrative PT ASSESSMENT - CASTING ROOM Deloris presents for Application of cast. Padding applied to pin in left 2nd toe. Applied short leg cast: to Left leg non-weight bearing Patient has been instructed in Care of cast. SARAH Porras documented in this encounter [facility] 10-26-2024 Note HNO ID: [id number] Author: TREVOR LANCASTER DPM Service: ? Author Type: Physician Type: Progress Notes Filed: 10/26/2024 13:43 Note Text: This 69 year old female presents today for post-op visit. Date of service: October 26, 2024 Patient presents with: Left Foot - Established Patient, Post Op /Pain Scales: Verbal (Numeric Rating or Visual Analog Scale) Pain Level: 4 Pain Location: Foot-Left Description: Throbbing Duration Amount of Time: 1 Duration Units: Weeks (post op) Frequency: Continuous Intervention/Comfort measure: Medication Comments: She is here for a 1 week post op of the left foot. Surgery performed on 10/20/24. HPI: Patient presents for postop follow up. Patient has been doing well with minimal discomfort. Denies nausea, vomiting, fever, chills, sweats, shortness of breath. No new complaints. O: Surgical site without signs of infection, no dehisence. Moderate residual edema consistent with surgical intervention. Incisions well coapted. No pain out of proportion. Alignment good. ROM as expected. Calf soft nontender, no signs of Deep Venous thrombosis. A: Progressing well post op P: Continue protective measures with support. New sterile dressings applied NWB cast applied with cast shoe to allow very limited weight bearing. Return to the office in 2 weeks for reevaluation or sooner should problems arise. Call if any problems arise prior to next visit. I gave out my personal mobile telephone number [phone] to call at anytime if needed. Instructed that if I am not available should contact the solutions operator block breaker operator or go to the emergency room. Trevor Lancaster D.P.M. [facility] 10-26-2024 History of Present illness Narrative This 69 year old female presents today for post-op visit. Date of service: October 26, 2024 Patient presents with: Left Foot - Established Patient, Post Op /Pain Scales: Verbal (Numeric Rating or Visual Analog Scale) Pain Level: 4 Pain Location: Foot-Left Description: Throbbing Duration Amount of Time: 1 Duration Units: Weeks (post op) Frequency: Continuous Intervention/Comfort measure: Medication Comments: She is here for a 1 week post op of the left foot. Surgery performed on 10/20/24. HPI: Patient presents for postop follow up. Patient has been doing well with minimal discomfort. Denies nausea, vomiting, fever, chills, sweats, shortness of breath. No new complaints. O: Surgical site without signs of infection, no dehisence. Moderate residual edema consistent with surgical intervention. Incisions well coapted. No pain out of proportion. Alignment good. ROM as expected. Calf soft nontender, no signs of Deep Venous thrombosis. A: Progressing well post op P: Continue protective measures with support. New sterile dressings applied NWB cast applied with cast shoe to allow very limited weight bearing. Return to the office in 2 weeks for reevaluation or sooner should problems arise. Call if any problems arise prior to next visit. I gave out my personal mobile telephone number [phone] to call at anytime if needed. Instructed that if I am not available should contact the solutions operator block breaker operator or go to the emergency room. Trevor Lancaster D.P.M. documented in this encounter [facility] 10-20-2024 Note HNO ID: [id number] Author: TORI AVERY APRN.ICE HOCKEY COACH Service: Anesthesiology Author Type: Nurse Cocoa Press Operator Type: Anesthesia Procedure Notes Filed: 10/20/2024 12:37 Note Text: ANESTHESIOLOGY PROCEDURE NOTE Airway General Information Procedure Start Time/Medication Administration: 10/20/2024 11:57 AM Procedure End Time: 10/20/2024 11:59 PM Patient location during procedure: OR Staffing ICE HOCKEY COACH: Tori Avery APRN.ICE HOCKEY COACH Performed by: KARSON Indications and Patient Condition Indications for airway management: anesthesia Preoxygenated: yes anesthesia circuit Patient position: sniffing Method: asleep Difficult Mask: No Final Airway Details Final airway type: supraglottic airway Number of attempts at approach: 1 Final Supraglottic Airway: IGEL Size 3 Seal Adequate: yes Airway not difficult SIGNATURE: Tori Avery APRN.CRNA PATIENT NAME: Deloris Bae DATE: October 20, 2024 TIME: 12:37 PM CSN: [id number] [facility] 10-20-2024 Note HNO ID: [id number] Author: EVERETT SAMUEL MD Service: Anesthesiology Author Type: Physician Type: Anesthesia Procedure Notes Filed: 10/20/2024 10:18 Note Text: ANESTHESIOLOGY PROCEDURE NOTE Peripheral Nerve Block General Information Procedure Start Time/Medication Administration: 10/20/2024 10:03 AM Procedure End time: 10/20/2024 10:05 AM Patient location during procedure: OR Timeout Performed Pre-procedure: timeout performed Consent Obtained: Yes Patient identity confirmed: arm band and patient Reason for block: post-op pain management/at surgeon's request Staffing Anesthesiologist: Everett Samuel MD Performed by: anesthesiologist Preparation Sterility Preparation: hand hygiene performed prior to procedure, surgical cap used, mask used, sterile drape used during line insertion, skin prep agent completely dried prior to procedure Site Prep: Chloraprep Pre-Procedure Neuro Exam Location: LLE Sensory: intact Motor: intact Procedure Details Patient Position: supine Monitoring: Pulse OX, EKG and NIBP Block Type Lower Extremity: distal femoral (adductor canal) Laterality: left Injection Technique: single-shot Ultrasound Guided: Yes Image in Chart: yes Local Infiltration: Yes Needle Needle Type: echogenic Needle Gauge: 22 G Needle Length: 100 mm Needle Localization: ultrasound Assessment Injection assessment: negative aspiration, no paresthesia on injection, incremental injection and local visualized surrounding nerve on ultrasound Post-Procedure Neuro Exam Expected Regional Anesthesia: Yes Medications Administered dexamethasone sodium phosphate injection (DECADRON) - peripheral nerve block 3 mg - 10/20/2024 10:03:00 AM ropivacaine (PF) 5 mg/mL (0.5 %) injection (NAROPIN) - peripheral nerve block 15 mL - 10/20/2024 10:03:00 AM SIGNATURE: Everett Samuel MD PATIENT NAME: Deloris Bae DATE: October 20, 2024 TIME: 10:17 AM CSN: [id number] [facility] 10-20-2024 Note HNO ID: [id number] Author: EVERETT SAMUEL MD Service: Anesthesiology Author Type: Physician Type: Anesthesia Procedure Notes Filed: 10/20/2024 10:17 Note Text: ANESTHESIOLOGY PROCEDURE NOTE Peripheral Nerve Block General Information Procedure Start Time/Medication Administration: 10/20/2024 9:57 AM Procedure End time: 10/20/2024 10:02 AM Patient location during procedure: induction room Timeout Performed Pre-procedure: timeout performed Consent Obtained: Yes (via Surgical Consent) Patient identity confirmed: arm band Reason for block: post-op pain management/at surgeon's request Staffing Anesthesiologist: Everett Samuel MD Performed by: anesthesiologist Preparation Sterility Preparation: hand hygiene performed prior to procedure, sterile gloves, drapes, and procedure tray, surgical cap used, mask used, sterile drape used during line insertion, skin prep agent completely dried prior to procedure Site Prep: Chloraprep Pre-Procedure Neuro Exam Location: LLE Sensory: intact Motor: intact Procedure Details Patient Position: supine Monitoring: Pulse OX, NIBP and EKG Block Type Lower Extremity: popliteal Approach: popliteal fossa Laterality: left Injection Technique: single-shot Ultrasound Guided: Yes Image in Chart: yes Local Infiltration: Yes Needle Needle Type: echogenic (Pajunk) Needle Gauge: 21 G Needle Length: 100 mm Needle Localization: ultrasound Assessment Injection assessment: negative aspiration, no paresthesia on injection, incremental injection and local visualized surrounding nerve on ultrasound Post-Procedure Neuro Exam Expected Regional Anesthesia: Yes Medications Administered dexamethasone sodium phosphate injection (DECADRON) - peripheral nerve block 4 mg - 10/20/2024 9:57:00 AM ropivacaine (PF) 5 mg/mL (0.5 %) injection (NAROPIN) - peripheral nerve block 30 mL - 10/20/2024 9:57:00 AM SIGNATURE: Everett Samuel MD PATIENT NAME: Deloris Bae DATE: October 20, 2024 TIME: 10:15 AM CSN: [id number] [facility] 10-14-2024 Telephone encounter Note My name is Deloris Bae. My date of is 55, and I am calling for a refill of hydrocodone. My surgery has been scheduled. This should be the last refill I need. Please to [facility] in [place]. Thank you, have a good day. -Copied from [facility] loaded [facility] 10-14-2024 Miscellaneous Notes My name is Deloris Bae. My date of is 55, and I am calling for a refill of hydrocodone. My surgery has been scheduled. This should be the last refill I need. Please to [facility] in [place]. Thank you, have a good day. -Copied from [facility] documented in this encounter [facility] 10-06-2024 Instructions Monica Luu APRN.DISPLAYER MERCHANDISE - 10/06/2024 8:24 AM EDT PATIENT PREOPERATIVE INSTRUCTIONS Trevor Lancaster DPM has scheduled you for your procedure at this surgery center: [facility]: [phone] --[address] [place] [address]. Please read below carefully for your personalized instructions. Dietary Restrictions: - No solid food after midnight. - You may have 12 ounces of clear liquids (water, clear juices such as apple juice or gatorade, carbonated beverages, clear tea, black coffee, jello) until 2 hours before scheduled arrival at facility. Medications: Unless instructed differently below, stay on all of your medications until your surgery. If you start any new medications after today's visit, please contact your surgeon. Please take these medications the morning of surgery: Bupropion(Wellbutrin), Omeprazole(Prilosec) If you are currently using a [id number] injectable or oral medication for diabetes or weight loss such as Dulaglutide (Trulicity), Exenatide (Byetta, Bydureon), Liraglutide (Victoza, Saxenda), Semaglutide (Ozempic, Wegovy, Rybelsus), or Tirzepatide (Mounjaro), the medicine should be stopped at least 7 days before surgery. These medicines can cause food to remain in your stomach for a very long time and increase the risks from surgery and anesthesia. Not stopping the medication for a long enough time may result in your surgery being rescheduled. If you start any new medications after today's visit, please contact the surgeon's office. Blood Thinning Medications: - Stop NSAIDS (Ibuprofen, Advil, Aleve, Motrin, Celebrex, Mobic, etc.) 7 days before surgery, as directed by your surgeon. - Do NOT stop aspirin or other anticoagulants without consulting with your patient liaison or prescribing physician. - Stop ALL herbal and dietary supplements 7 days before surgery. - You may take Tylenol (Acetaminophen) or any of your pain medications that do not contain aspirin or NSAIDS as needed. - Eliquis to hold two days prior to surgery Important Reminders: - Candy, mints, and tobacco products are NOT permitted the morning of surgery. - Hearing aids, dentures and glasses may be worn the morning of surgery. - NO jewelry, body piercings, makeup, hairpins or contacts are to be worn the day of surgery. If you develop symptoms such as a fever, cold, or flu, or have other changes to your health within TWO DAYS of scheduled surgery or the morning of surgery, please contact the surgery center above. Personal Belongings: -Please have photo ID and insurance cards. -If you do not have a copy of advance directives on file with us, please bring a copy with you on the day of surgery. - Leave ALL valuables and money at home or with family members. For Outpatient Procedures: - YOU MUST HAVE A RESPONSIBLE RAILCAR SWITCHMAN TAKE YOU HOME. A ACQUISITION MARKETING MANAGER OR ATTENDANT HONOR BAR CANNOT BE MADE A RESPONSIBLE RAILCAR SWITCHMAN. - We recommend that a responsible person stays with you overnight to take care of you. - You cannot stay in a hotel alone after outpatient surgery. You will not be permitted to have your surgery, if you do not have someone to take care of you. Arrival Time for Surgery: - The Surgery Center or hospital where you are having surgery will call the afternoon before surgery (or Friday for Friday surgery) with a scheduled arrival time. - If you have not heard by 4 pm, please contact the surgery center above. Please be aware that emergency situations arise, which may delay or change your surgical time. If this happens, we will notify you as soon as possible and regret any inconvenience. If you already have an Advance Directive, please fax a copy to [phone] or email to for it to be added to your chart. If you do not have an Advance Directive, you can find the appropriate form and more information at [email or web address]. We recommend that you complete the Advance Directive form found on the website and bring it with you the day of your surgery. It can be witnessed and scanned into your chart that day. Monica Luu APRN.LORI documented in this encounter [facility] 10-06-2024 History and physical note Images from the original note were not included. [facility] HISTORY AND PHYSICAL EXAMINATION SERVICE DATE: 10/06/2024 SERVICE TIME: 8:11 AM PRIMARY CARE PHYSICIAN: Tamia France MD REASON FOR VISIT: Deloris Bae is a 69 year old female who is scheduled for Left - TRANSFER TENDON EXTREMITY LOWER Left - RECESSION GASTROCNEMIUS Left - OSTECTOMY COMPLETE EXCISION METATARSAL HEAD FIFTH Left - CAPSULOTOMY MIDFOOT WITH TENDON LENGTHENING at the request of Dr. Trevor Lancaster for consultation. My final recommendation will be communicated back to the requesting physician by way of shared medical record or letter. Assessment Patient has the following medical conditions which may affect kelsey-operative course: Former smoker Assessment: 1.5 packs/day, for 28 years. Quit 06/16/2006. History of CVA (cerebrovascular accident) Assessment: (04/2024) for ischemic stroke secondary to cryptogenic. History of gastric bypass Assessment: History of Gastric Bypass in 2007 Body mass index is 24.22 kg/m . Depression Assessment: stable on medication Denies any suicidal ideation I - PHYSICAL EVALUATION AIRWAY Patient intubated: No. Tracheostomy tube not present Mallampati: I. TM distance: >3 FB. Neck ROM: full ROM without neurological symptoms. Mouth opening: adequate. Short neck: no. Thick neck: no Tinoco present: no Lip Bite Test: II Microretrognathia/Micronagthia/Rec essed Chin: No DENTAL Dental findings: teeth intact. Additional comments: Permanent bridge upper . II - ANESTHESIA PLAN Anesthetic plan additional comments: *PACC/TCI - anesthesia choice. Beta Juan Monitoring Plan Post Procedure Analgesic Plan ANESTHESIA FINDINGS: Intubation History: No history of difficult intubation. No abnormal airway history Significant Anesthesia Considerations: none Airway History: No history of difficult airway No abnormal airway history Montaño Activity Status Index: METS: Walk indoors, such as around the house (1.75 METs) Do light work around the house, such as dusting or washing dishes (2.70 METs) Take care of self; that is eating, dressing, bathing, using the toilet (2.75 METs) Walk a block or two on level ground (2.75 METs) Do moderate work around the house, such as vacuuming, sweeping floors, or carrying in groceries (3.50 METs) Climb a flight of stairs or walk up a hill (5.50 METs) DASI Score: 18.95 Patient denies any chest pain or undue shortness of breath with the above physical activity. Clinical Frailty Scale: 3. Well, with treated comorbid disease STOP-Bang Score: Patient over 50 years old Denies snoring loudly Denies feeling tired, fatigued, or sleepy during the daytime Has not been observed to stop breathing or choking/gasping during sleep Denies having high blood pressure BMI less than or equal to 35 kg/m^2 Does not have a large neck Non-male patient STOP-Bang Score: 1 [id number] Score: Age: 65-74 Sex: female CHF history: No Hypertension history: No Stroke/TIA/thromboembolism history: Yes Vascular disease history: No Diabetes history: No [id number] Score: 4 ARISCAT Score: Age: 51-80 Preoperative SpO2: >=96% Respiratory infection in the last month: No Preoperative anemia: Yes Surgical incision: peripheral Duration of surgery: 2-3 hrs Emergency procedure: No ARISCAT Score: 30 Prepared for surgery: This patient is optimally prepared for surgery. Patient was told by Dr. Beaver to stop Eliquis two days Prior to surgery CONSULTS: Patient does not require consults for optimization at this time. The Following Tests/Procedures Have Been Initiated: Labs not indicated per PACC protocol, EKG not indicated per PACC protocol Planned Anesthetic: Per anesthesia choice Subjective CHIEF COMPLAINT: Left foot pain HPI: 69 year old female with left foot pain that has been ongoing for months. Patient is s/p CVA with partial hemiparesis and states she has left foot contracture with difficulty walking and difficulty wearing AFO . Patient states pain is 7/10 REVIEW OF SYSTEMS: PAIN ASSESSMENT: Pain Pain Level: 0 Pain Location: Foot-Left General: No weight loss, malaise or fevers. Neuro: Positive for CVA with left hemiparesis 04/2024 Respiratory: Positive for Tobacco Use 1.5 packs/day, for 28 years. Quit 06/16/2006., Negative for No history of current cough or dyspnea, or pneumonia in the past 6 weeks. No history of respiratory/pulmonary symptoms or problems Cardiovascular: No history of HTN requiring medication, no history of angina, CHF, NC, cardiac surgery or stents. Denies rest pain, gangrene or revascularization/amputation for PVD. No history of cardiovascular symptoms or problems. GI: No history of GI symptoms or problems. No history of esophageal varices, recent ascites, or ETOH greater than 2 drinks per day. : No history of dysuria, frequency or incontinence,, stones or chronic kidney disease, No difficulty urinating, nocturia > 1 time per night or hematuria DULL COAT MILL OPERATOR: Negative for abnormal vaginal bleeding, abnormal vaginal discharge. : Denies, No LMP recorded. Patient has had a hysterectomy. Endocrine: No history of diabetes. Has not taken steroids within the past 30 days. No history of endocrinological symptoms or problems. Hematology: No history of bleeding or clotting disorder. Pt is not taking anti-coagulation or platelet medications. No history of hematological symptoms or problems. Oncology: No history of CA metastasis, chemo within 30 days, or radiotherapy within 90 days. Has not lost 10% of body wt in 6 months. No history of oncological symptoms or problems. Psych: Anxiety, Depression Marijuana use: No Musculoskeletal: See HPI Skin: Negative for lesions, rash and itching. Implanted Devices: No The patient has the following: ACTIVE PROBLEM LIST Enthesopathy of Hip Region OA (OSTEOARTHRITIS) LOCALIZED, PRIMARY( Lower Leg) Tear of Lateral Cartilage Or Meniscus of Knee, Current Severe Vaginal Dysplasia Endometriosis Arthritis Hyperlipidemia Depression Diabetes (Hcc) Pmr (Polymyalgia Rheumatica) ([facility]) Chondrocalcinosis of Left Knee Primary Osteoarthritis Involving Multiple Joints Ddd (Degenerative Disc Disease), Lumbosacral Spinal Stenosis of Lumbosacral Region Former Smoker History of Cva (Cerebrovascular Accident) History of Gastric Bypass Covid Immunization Dates Current Care Gaps Covid-19 Vaccine (8 - Moderna risk ) Due soon on 10/06/2024 04/07/2024 Outside Immunization: Covid-19,mrna, Lnp-s, Pf, 50mcg/0.5ml 12+ 04/07/2023 Imm Admin: COVID-19 vaccine, age 12+ yr ([employer] COMIRNATY) 04/22/2022 Imm Admin: COVID-19 vaccine, age 12+ yr, bivalent (MODERNA) 12/27/2021 Imm Admin: COVID-19 original vaccine, full dose, monovalent (MODERNA) 04/25/2021 Imm Admin: COVID-19 original vaccine, full dose, monovalent (MODERNA) Only the first 5 history entries have been loaded, but more history exists. PAST MEDICAL HISTORY Diagnosis Date Arthritis Depression Diabetes (HCC) Type II Endometriosis Enthesopathy of hip region 12/30/2006 Hyperlipidemia Severe vaginal dysplasia 01/23/2010 Tear of lateral cartilage or meniscus of knee, current 03/17/2007 Vaginal dysplasia PAST SURGICAL HISTORY Procedure Laterality Date APPENDECTOMY 1972 BACK SURGERY HX 2000 CHOLECYSTECTOMY 1982 DESTRUCTION VAGINAL LESIONS SIMPLE 02/23/10 Performed by WENDY SHARMA at [facility] DILATION & CURETTAGE DX&/THER NONOBSTETRIC 1988 x2 GASTRIC BYPASS 2008 KNEE ARTHROSCOPY 2007 LASER VAGINA LESION EXTEN LIG/TRNSXJ FLP TUBE ABDL/VAG APPR UNI/BI PAST SURGICAL HISTORY OF 2008 Finger surgery REDUCTION OF LARGE BREAST 1980 TONSILLECTOMY HX 1972 TOTAL ABDOMINAL HYSTERECT W/WO RMVL TUBE OVARY 1988 and RSO VAGINECTOMY PARTIAL REMOVAL VAGINAL WALL 02/23/10 Performed by WENDY SHARMA at [facility] FAMILY HISTORY Problem Relation Age of Onset Cancer Father Lung cancer Cancer Brother Squamous cell skin cancer Social History Tobacco Use Smoking status: Former Current packs/day: 0.00 Average packs/day: 1.5 packs/day for 28.0 years (42.0 ttl pk-yrs) Types: Cigarettes Start date: 06/16/1978 Quit date: 06/16/2006 Years since quittin.3 Smokeless tobacco: Never Vaping Use Vaping status: Never Used Substance Use Topics Alcohol use: Yes Comment: rare/ when out to dinner will have 1 glass of sangria Drug use: Not Currently Prior to Admission medications as of 10/06/24 0811 Medication Sig Last Dose Taking Cholecalciferol, Vitamin D3, 25 mcg (1,000 unit) cap Take 1,000 Units by mouth once daily. Yes ezetimibe (ZETIA) 10 mg tablet Take 10 mg by mouth once daily. Yes omeprazole (PRILOSEC) 40 mg capsule Take 40 mg by mouth two times a day. Yes HYDROcodone-acetaminophen (NORCO) 5-325 mg per tablet Take 1 tablet by mouth every 6 hours as needed for pain. Yes buPROPion XL (WELLBUTRIN XL) 300 mg 24 hr tablet Take 300 mg by mouth. Yes denosumab (PROLIA) 60 mg/mL Inject 60 mg subcutaneously once every 6 months. Yes apixaban (ELIQUIS) 5 mg tab(s) Take 5 mg by mouth two times a day. Yes ALPRAZolam (XANAX) 0.25 mg tablet Take 0.25 mg by mouth three times daily as needed. Yes ascorbic acid/bioflavonoids (COLLEEN C ORAL) Take by mouth. Yes vit C/E/Zn/coppr/lutein/zeaxan (PRESERVISION AREDS-2 ORAL) Take by mouth. Yes PNV Comb No.59/Iron/FA/DHA (-DHA ORAL) Take by mouth. Yes calcium carbonate/vitamin d3(CALCIUM 600 + D(3) 600 MG (1,500)-200 UNIT TAB) Take one(1) tablet twice daily. Yes CYANOCOBALAMIN (VITAMIN B-12) 1,000 MCG SUBLINGUAL TAB Take one(1) tablet daily. Yes folic acid 1 mg tablet No medication comments found. ALLERGIES No Known Allergies Objective PHYSICAL EXAM: VITALS: BP 138/83 Pulse 66 Temp (Src) 98.1 (Oral) Resp 16 Ht 5' 4 (1.63m) Wt 141 lb 1.5 oz (64.0kg) SpO2 99% BMI 24.21 kg/(m^2). General: Alert and oriented, No acute distress, Healthy appearance Skin: Normal color, no rash, no lesions. HEENT: EOM, pupils equal, round and reactive. Cardiovascular: Normal S1 & S2, no rubs, murmurs or gallops. No JVD. Pulse regular. Lungs: Normal breath sounds, no wheezes or crackles. Abdomen: Soft, non-tender, no rigidity., Positive bowel sounds Neurological: Limb weakness, left UE Limb weakness, left LE, Abnormal gait walks with Cane Pulses: Carotid and radial pulses normal +2. Diagnostic tests reviewed for today's visit: EKG Scan on 07/22/2024: ECG 12 Lead ECHO Order: [id number] Narrative Left Ventricle: There is mild concentric increased wall thickness/hypertrophy. Systolic function is normal with an ejection fraction of 60-65%. Mitral Valve: There is mild regurgitation. There is no evidence of mitral valve stenosis. Aortic Valve: There is no regurgitation or stenosis. Right Ventricle: Systolic function is normal. Tricuspid Valve: There is trace regurgitation. There is no evidence of tricuspid valve stenosis. Pericardium: There is no pericardial effusion. Left Ventricle Left ventricle appears normal in size. There is mild concentric increased wall thickness/hypertrophy. Systolic function is normal with an ejection fraction of 60-65%. No segmental wall motion abnormalities. Normal diastolic function is present. Lateral E' is 9.03 cm/s. Medial E' is 8.70 cm/s. Right Ventricle Right ventricular size appears normal. The right ventricular basal diameter is 36.0 mm. Systolic function is normal. Left Atrium Left atrium is normal in size. Left atrium volume index is normal. The left atrial volume index is 24.1 mL/m2. Right Atrium Right atrium is mildly dilated. The right atrial area is 19.9 cm2. IVC/SVC IVC appears normal. There is normal collapse with deep inspiration. Mitral Valve Mitral valve structure is normal. There is mild regurgitation. There is no evidence of mitral valve stenosis. Tricuspid Valve Tricuspid valve appears to be normal. There is trace regurgitation. There is no evidence of tricuspid valve stenosis. The right ventricular systolic pressure normal. Aortic Valve The aortic valve is trileaflet. The leaflets are mildly calcified. There is no regurgitation or stenosis. Pulmonic Valve Pulmonic valve structure is grossly normal. There is trace regurgitation. There is no evidence of pulmonic valve stenosis. Ascending Aorta The aortic root is normal in size. Pericardium There is no pericardial effusion. Study Details A complete echo was performed using complete 2D, color flow Doppler and spectral Doppler. Wall Scoring Baseline Score Index: 1.00 The left ventricular wall motion is normal. HOLTER MONITOR 72 HOURS MEDICOMP Order: [id number] Narrative [facility] [address] [place], [place] [id number] Holter Monitor Report Signed Patient: Deloris Bae MR#: [id number] : 1955 Acct:[id number] Age/Sex: 68 / F ADM Date: 06/14/23 Loc: Room: Type: [facility] Attending Dr: Cheryl WEAVER Copies to: GERMAN Lagunas MD Ordering Provider: Cheryl Alicea NP Date of Service: 06/14/23 CA/CA holter [...] an isolated PVC noted. Correlation is suggested. Nuclear Stress Test 08/12/2024 Anatomical Region Laterality Modality -- -- Nuclear Medicine Impression Normal Lexiscan Myoview cardiac perfusion stress test. No evidence of ischemia or myocardial infarction by perfusion imaging. Normal left ventricular systolic function, ejection fraction 69%. No previous study available for comparison. Signed by: Lyric Villatoro 08/12/2024 5:27 PM Dictation workstation: [id number] Narrative Interpreted By: TraboulLyric mcclellan and Giannuzzi Michael STUDY: MYOCARDIAL PERFUSION STRESS TEST WITH LEXISCAN Performing facility: [facility], [address], [address], [place] [address] [facility] Provider: Kimmie Beaver MD, [facility] PCP: Dr. Josh France Supervising provider: Lyric Villatoro MD INDICATION: ,R94.31 Abnormal electrocardiogram (ECG) (EKG),I63.9 Cerebral infarction, unspecified,Z86.73 Personal history of transient ischemic attack (TIA), and cerebral infarction without residual deficits,E78.2 Mixed hyperlipidemia,Z68.24 Body mass index (BMI) 24.0-24.9, adult HISTORY: Gender: F; Age: 69 y/o ; Height: HT 162.6 cm cm; Weight: WT 63.594 kg kg. Abnormal EKG; CVA TIA MHLD Quit smoking 18 years ago. COMPARISON: No comparison. ACCESSION NUMBER(S): [id number] ORDERING CLINICIAN: KIMMIE BEAVER TECHNIQUE: ONE DAY protocol. Stress injection: Date:08-12-24, 31.6 mCi of Myoview IV 20 seconds after rapid injection of Lexiscan. Rest injection: Date: 08-12-24, 11.4 mCi of Myoview IV at rest. The patient had a rapid injection of 0.4 mg of Lexiscan IV over 10 seconds. Imaging was performed by gated tomographic technique. Reason for Lexiscan: uses walker/cane STRESS TEST DATA: Resting heart rate was 73 BPM. Resting blood pressure was 128/78 mmHg. Peak blood pressure was 126/76 mmHg. Peak heart rate was 109 BPM. TEST TERMINATED DUE TO: Protocol completed FINDINGS: STRESS TEST RESULTS: Resting electrocardiogram revealed normal sinus rhythm. There were no significant ischemic ECG changes or dysrhythmias. The patient did not have chest pains/symptoms during procedure. There was a normal recovery phase. IMAGING RESULTS: Image quality was good. Rest and stress tomographic images were reviewed and revealed normal perfusion without evidence of ischemia, myocardial infarction, or left ventricular dilatation with stress. Overall left ventricular systolic function appeared to be normal without regional wall motion abnormalities. Ejection fraction was 69%. TID is 0.9 and is normal. There were no evidence of attenuation artifact. Instructions Given to Patient: Instructions located in the after visit summary. Patient given verbal and written preop instructions and voices comprehension and compliance. SIGNATURE: Monica Luu APRN.CNP PATIENT NAME: Deloris Bae DATE: 10/06/2024 TIME: 8:40 AM [facility] 10-06-2024 History and physical note Images from the original note were not included. [facility] HISTORY AND PHYSICAL EXAMINATION SERVICE DATE: 10/06/2024 SERVICE TIME: 8:11 AM PRIMARY CARE PHYSICIAN: Tamia France MD REASON FOR VISIT: Deloris Bae is a 69 year old female who is scheduled for Left - TRANSFER TENDON EXTREMITY LOWER Left - RECESSION GASTROCNEMIUS Left - OSTECTOMY COMPLETE EXCISION METATARSAL HEAD FIFTH Left - CAPSULOTOMY MIDFOOT WITH TENDON LENGTHENING at the request of Dr. Trevor Lancaster for consultation. My final recommendation will be communicated back to the requesting physician by way of shared medical record or letter. Assessment Patient has the following medical conditions which may affect kelsey-operative course: Former smoker Assessment: 1.5 packs/day, for 28 years. Quit 06/16/2006. History of CVA (cerebrovascular accident) Assessment: (04/2024) for ischemic stroke secondary to cryptogenic. History of gastric bypass Assessment: History of Gastric Bypass in 2007 Body mass index is 24.22 kg/m . Depression Assessment: stable on medication Denies any suicidal ideation I - PHYSICAL EVALUATION AIRWAY Patient intubated: No. Tracheostomy tube not present Mallampati: I. TM distance: >3 FB. Neck ROM: full ROM without neurological symptoms. Mouth opening: adequate. Short neck: no. Thick neck: no Tinoco present: no Lip Bite Test: II Microretrognathia/Micronagthia/Rec essed Chin: No DENTAL Dental findings: teeth intact. Additional comments: Permanent bridge upper . II - ANESTHESIA PLAN Anesthetic plan additional comments: *PACC/TCI - anesthesia choice. Beta Juan Monitoring Plan Post Procedure Analgesic Plan ANESTHESIA FINDINGS: Intubation History: No history of difficult intubation. No abnormal airway history Significant Anesthesia Considerations: none Airway History: No history of difficult airway No abnormal airway history Montaño Activity Status Index: METS: Walk indoors, such as around the house (1.75 METs) Do light work around the house, such as dusting or washing dishes (2.70 METs) Take care of self; that is eating, dressing, bathing, using the toilet (2.75 METs) Walk a block or two on level ground (2.75 METs) Do moderate work around the house, such as vacuuming, sweeping floors, or carrying in groceries (3.50 METs) Climb a flight of stairs or walk up a hill (5.50 METs) DASI Score: 18.95 Patient denies any chest pain or undue shortness of breath with the above physical activity. Clinical Frailty Scale: 3. Well, with treated comorbid disease STOP-Bang Score: Patient over 50 years old Denies snoring loudly Denies feeling tired, fatigued, or sleepy during the daytime Has not been observed to stop breathing or choking/gasping during sleep Denies having high blood pressure BMI less than or equal to 35 kg/m^2 Does not have a large neck Non-male patient STOP-Bang Score: 1 [id number] Score: Age: 65-74 Sex: female CHF history: No Hypertension history: No Stroke/TIA/thromboembolism history: Yes Vascular disease history: No Diabetes history: No [id number] Score: 4 ARISCAT Score: Age: 51-80 Preoperative SpO2: >=96% Respiratory infection in the last month: No Preoperative anemia: Yes Surgical incision: peripheral Duration of surgery: 2-3 hrs Emergency procedure: No ARISCAT Score: 30 Prepared for surgery: This patient is optimally prepared for surgery. Patient was told by Dr. Beaver to stop Eliquis two days Prior to surgery CONSULTS: Patient does not require consults for optimization at this time. The Following Tests/Procedures Have Been Initiated: Labs not indicated per PACC protocol, EKG not indicated per PACC protocol Planned Anesthetic: Per anesthesia choice Subjective CHIEF COMPLAINT: Left foot pain HPI: 69 year old female with left foot pain that has been ongoing for months. Patient is s/p CVA with partial hemiparesis and states she has left foot contracture with difficulty walking and difficulty wearing AFO . Patient states pain is 7/10 REVIEW OF SYSTEMS: PAIN ASSESSMENT: Pain Pain Level: 0 Pain Location: Foot-Left General: No weight loss, malaise or fevers. Neuro: Positive for CVA with left hemiparesis 04/2024 Respiratory: Positive for Tobacco Use 1.5 packs/day, for 28 years. Quit 06/16/2006., Negative for No history of current cough or dyspnea, or pneumonia in the past 6 weeks. No history of respiratory/pulmonary symptoms or problems Cardiovascular: No history of HTN requiring medication, no history of angina, CHF, NC, cardiac surgery or stents. Denies rest pain, gangrene or revascularization/amputation for PVD. No history of cardiovascular symptoms or problems. GI: No history of GI symptoms or problems. No history of esophageal varices, recent ascites, or ETOH greater than 2 drinks per day. : No history of dysuria, frequency or incontinence,, stones or chronic kidney disease, No difficulty urinating, nocturia > 1 time per night or hematuria [employer]: Negative for abnormal vaginal bleeding, abnormal vaginal discharge. : Denies, No LMP recorded. Patient has had a hysterectomy. Endocrine: No history of diabetes. Has not taken steroids within the past 30 days. No history of endocrinological symptoms or problems. Hematology: No history of bleeding or clotting disorder. Pt is not taking anti-coagulation or platelet medications. No history of hematological symptoms or problems. Oncology: No history of CA metastasis, chemo within 30 days, or radiotherapy within 90 days. Has not lost 10% of body wt in 6 months. No history of oncological symptoms or problems. Psych: Anxiety, Depression Marijuana use: No Musculoskeletal: See HPI Skin: Negative for lesions, rash and itching. Implanted Devices: No The patient has the following: ACTIVE PROBLEM LIST Enthesopathy of Hip Region OA (OSTEOARTHRITIS) LOCALIZED, PRIMARY( Lower Leg) Tear of Lateral Cartilage Or Meniscus of Knee, Current Severe Vaginal Dysplasia Endometriosis Arthritis Hyperlipidemia Depression Diabetes (Hcc) Pmr (Polymyalgia Rheumatica) (Hcc) Chondrocalcinosis of Left Knee Primary Osteoarthritis Involving Multiple Joints Ddd (Degenerative Disc Disease), Lumbosacral Spinal Stenosis of Lumbosacral Region Former Smoker History of Cva (Cerebrovascular Accident) History of Gastric Bypass Covid Immunization Dates Current Care Gaps Covid-19 Vaccine (8 - Moderna risk season) Due soon on 10/06/2024 04/07/2024 Outside Immunization: Covid-19,mrna, Lnp-s, Pf, 50mcg/0.5ml 12+ 04/07/2023 Imm Admin: COVID-19 vaccine, age 12+ yr (PFIZER-BIONTECH COMIRNATY) 04/22/2022 Imm Admin: COVID-19 vaccine, age 12+ yr, bivalent (MODERNA) 12/27/2021 Imm Admin: COVID-19 original vaccine, full dose, monovalent (MODERNA) 04/25/2021 Imm Admin: COVID-19 original vaccine, full dose, monovalent (MODERNA) Only the first 5 history entries have been loaded, but more history exists. PAST MEDICAL HISTORY Diagnosis Date Arthritis Depression Diabetes (HCC) Type II Endometriosis Enthesopathy of hip region 12/30/2006 Hyperlipidemia Severe vaginal dysplasia 01/23/2010 Tear of lateral cartilage or meniscus of knee, current 03/17/2007 Vaginal dysplasia PAST SURGICAL HISTORY Procedure Laterality Date APPENDECTOMY 1972 BACK SURGERY HX 2001 CHOLECYSTECTOMY 1982 DESTRUCTION VAGINAL LESIONS SIMPLE 02/23/10 Performed by WENDY SHARMA at [facility] DILATION & CURETTAGE DX&/THER NONOBSTETRIC 1988 x2 GASTRIC BYPASS 2008 KNEE ARTHROSCOPY 2006 LASER VAGINA LESION EXTEN LIG/TRNSXJ FLP TUBE ABDL/VAG APPR UNI/BI PAST SURGICAL HISTORY OF 2008 Finger surgery REDUCTION OF LARGE BREAST 1980 TONSILLECTOMY HX 1972 TOTAL ABDOMINAL HYSTERECT W/WO RMVL TUBE OVARY 1988 and RSO VAGINECTOMY PARTIAL REMOVAL VAGINAL WALL 02/23/10 Performed by WENDY SHARMA at [facility] FAMILY HISTORY Problem Relation Age of Onset Cancer Father Lung cancer Cancer Brother Squamous cell skin cancer Social History Tobacco Use Smoking status: Former Current packs/day: 0.00 Average packs/day: 1.5 packs/day for 28.0 years (42.0 ttl pk-yrs) Types: Cigarettes Start date: 06/16/1978 Quit date: 06/16/2006 Years since quittin.3 Smokeless tobacco: Never Vaping Use Vaping status: Never Used Substance Use Topics Alcohol use: Yes Comment: rare/ when out to dinner will have 1 glass of sangria Drug use: Not Currently Prior to Admission medications as of 10/06/24 0811 Medication Sig Last Dose Taking Cholecalciferol, Vitamin D3, 25 mcg (1,000 unit) cap Take 1,000 Units by mouth once daily. Yes ezetimibe (ZETIA) 10 mg tablet Take 10 mg by mouth once daily. Yes omeprazole (PRILOSEC) 40 mg capsule Take 40 mg by mouth two times a day. Yes HYDROcodone-acetaminophen (NORCO) 5-325 mg per tablet Take 1 tablet by mouth every 6 hours as needed for pain. Yes buPROPion XL (WELLBUTRIN XL) 300 mg 24 hr tablet Take 300 mg by mouth. Yes denosumab (PROLIA) 60 mg/mL Inject 60 mg subcutaneously once every 6 months. Yes apixaban (ELIQUIS) 5 mg tab(s) Take 5 mg by mouth two times a day. Yes ALPRAZolam (XANAX) 0.25 mg tablet Take 0.25 mg by mouth three times daily as needed. Yes ascorbic acid/bioflavonoids (COLLEEN C ORAL) Take by mouth. Yes vit C/E/Zn/coppr/lutein/zeaxan (PRESERVISION AREDS-2 ORAL) Take by mouth. Yes PNV Comb No.59/Iron/FA/DHA (-DHA ORAL) Take by mouth. Yes calcium carbonate/vitamin d3(CALCIUM 600 + D(3) 600 MG (1,500)-200 UNIT TAB) Take one(1) tablet twice daily. Yes CYANOCOBALAMIN (VITAMIN B-12) 1,000 MCG SUBLINGUAL TAB Take one(1) tablet daily. Yes folic acid 1 mg tablet No medication comments found. ALLERGIES No Known Allergies Objective PHYSICAL EXAM: VITALS: BP 138/83 Pulse 66 Temp (Src) 98.1 (Oral) Resp 16 Ht 5' 4 (1.63m) Wt 141 lb 1.5 oz (64.0kg) SpO2 99% BMI 24.21 kg/(m^2). General: Alert and oriented, No acute distress, Healthy appearance Skin: Normal color, no rash, no lesions. HEENT: EOM, pupils equal, round and reactive. Cardiovascular: Normal S1 & S2, no rubs, murmurs or gallops. No JVD. Pulse regular. Lungs: Normal breath sounds, no wheezes or crackles. Abdomen: Soft, non-tender, no rigidity., Positive bowel sounds Neurological: Limb weakness, left UE Limb weakness, left LE, Abnormal gait walks with Cane Pulses: Carotid and radial pulses normal +2. Diagnostic tests reviewed for today's visit: EKG Scan on 07/22/2024: ECG 12 Lead ECHO Order: [id number] Narrative Left Ventricle: There is mild concentric increased wall thickness/hypertrophy. Systolic function is normal with an ejection fraction of 60-65%. Mitral Valve: There is mild regurgitation. There is no evidence of mitral valve stenosis. Aortic Valve: There is no regurgitation or stenosis. Right Ventricle: Systolic function is normal. Tricuspid Valve: There is trace regurgitation. There is no evidence of tricuspid valve stenosis. Pericardium: There is no pericardial effusion. Left Ventricle Left ventricle appears normal in size. There is mild concentric increased wall thickness/hypertrophy. Systolic function is normal with an ejection fraction of 60-65%. No segmental wall motion abnormalities. Normal diastolic function is present. Lateral E' is 9.03 cm/s. Medial E' is 8.70 cm/s. Right Ventricle Right ventricular size appears normal. The right ventricular basal diameter is 36.0 mm. Systolic function is normal. Left Atrium Left atrium is normal in size. Left atrium volume index is normal. The left atrial volume index is 24.1 mL/m2. Right Atrium Right atrium is mildly dilated. The right atrial area is 19.9 cm2. IVC/SVC IVC appears normal. There is normal collapse with deep inspiration. Mitral Valve Mitral valve structure is normal. There is mild regurgitation. There is no evidence of mitral valve stenosis. Tricuspid Valve Tricuspid valve appears to be normal. There is trace regurgitation. There is no evidence of tricuspid valve stenosis. The right ventricular systolic pressure normal. Aortic Valve The aortic valve is trileaflet. The leaflets are mildly calcified. There is no regurgitation or stenosis. Pulmonic Valve Pulmonic valve structure is grossly normal. There is trace regurgitation. There is no evidence of pulmonic valve stenosis. Ascending Aorta The aortic root is normal in size. Pericardium There is no pericardial effusion. Study Details A complete echo was performed using complete 2D, color flow Doppler and spectral Doppler. Wall Scoring Baseline Score Index: 1.00 The left ventricular wall motion is normal. HOLTER MONITOR 72 HOURS MEDICOMP Order: [id number] [facility] [address] [place], [place] [id number] Holter Monitor Report Signed Patient: Deloris Bae MR#: [id number] : 1955 Acct:[id number] Age/Sex: 68 / F ADM Date: 06/14/23 Loc: Room: [facility] Attending Dr: Cheryl Alicea CONCRETE POURERAnatC Copies to: GERMAN Lagunas MD Ordering Provider: Cheryl Alicea NP Date of Service: 06/14/23 CA/CA holter [...] an isolated PVC noted. Correlation is suggested. Nuclear Stress Test 08/12/2024 Anatomical Region Laterality Modality -- -- Nuclear Medicine Impression Normal Lexiscan Myoview cardiac perfusion stress test. No evidence of ischemia or myocardial infarction by perfusion imaging. Normal left ventricular systolic function, ejection fraction 69%. No previous study available for comparison. Signed by: Lyric Villatoro 08/12/2024 5:27 PM Dictation workstation: [id number] Narrative Interpreted By: Lyric Villatoro and Giannuzzi Michael STUDY: MYOCARDIAL PERFUSION STRESS TEST WITH LEXISCAN Performing facility: [facility], [address] [place] [address], [address], [address] Provider: Kimmie Beaver MD, [facility] PCP: Dr. Josh France Supervising provider: Lyric Villatoro MD INDICATION: ,R94.31 Abnormal electrocardiogram (ECG) (EKG),I63.9 Cerebral infarction, unspecified,Z86.73 Personal history of transient ischemic attack (TIA), and cerebral infarction without residual deficits,E78.2 Mixed hyperlipidemia,Z68.24 Body mass index (BMI) 24.0-24.9, adult HISTORY: Gender: F; Age: 69 y/o ; Height: HT 162.6 cm cm; Weight: WT 63.594 kg kg. Abnormal EKG; CVA TIA MHLD Quit smoking 18 years ago. COMPARISON: No comparison. ACCESSION NUMBER(S): [id number] ORDERING CLINICIAN: KIMMIE BEAVER TECHNIQUE: ONE DAY protocol. Stress injection: Date:08-12-24, 31.6 mCi of Myoview IV 20 seconds after rapid injection of Lexiscan. Rest injection: Date: 08-12-24, 11.4 mCi of Myoview IV at rest. The patient had a rapid injection of 0.4 mg of Lexiscan IV over 10 seconds. Imaging was performed by gated tomographic technique. Reason for Lexiscan: uses walker/cane STRESS TEST DATA: Resting heart rate was 73 BPM. Resting blood pressure was 128/78 mmHg. Peak blood pressure was 126/76 mmHg. Peak heart rate was 109 BPM. TEST TERMINATED DUE TO: Protocol completed FINDINGS: STRESS TEST RESULTS: Resting electrocardiogram revealed normal sinus rhythm. There were no significant ischemic ECG changes or dysrhythmias. The patient did not have chest pains/symptoms during procedure. There was a normal recovery phase. IMAGING RESULTS: Image quality was good. Rest and stress tomographic images were reviewed and revealed normal perfusion without evidence of ischemia, myocardial infarction, or left ventricular dilatation with stress. Overall left ventricular systolic function appeared to be normal without regional wall motion abnormalities. Ejection fraction was 69%. TID is 0.9 and is normal. There were no evidence of attenuation artifact. Instructions Given to Patient: Instructions located in the after visit summary. Patient given verbal and written preop instructions and voices comprehension and compliance. SIGNATURE: Moniac Luu APRN.LORI PATIENT NAME: Deloris Bae DATE: 10/06/2024 TIME: 8:40 AM documented in this encounter [facility] 09-28-2024 History of Present illness Narrative Associated Order(s): S Inj/Asp: R thumb MCP Post-Procedure Diagnose(s): Pain of right thumb S Inj/Asp: R thumb MCP on 09/28/2024 10:49 AM Indications: diagnostic evaluation Details: 25 G needle, ultrasound-guided Medications: 3 mg betamethasone acetate-betamethasone sodium phosphate 6 (3-3) MG/ML Outcome: tolerated well, no immediate complications Consent was given by the patient. Images from the original note were not included. Deloris Bae is a 69 y.o. female presents with chief complaint of right shoulder pain and stiffness, review MRI. Right trigger thumb, requesting injection. HPI: Deloris is here of which she did recently see Dr. Lancaster at the [facility]. She is having forefoot surgery for some contractures from her stroke with some tendon release. She is on Eliquis and is in the process of getting cleared for that. She had a stroke this past year approximately five to six months ago. She has pain, swelling and stiffness. No fever, chills or constitutional symptoms. Her MRI shows a small full thickness rotator cuff tear, less than 1 cm of the anterolateral supraspinatus. The infraspinatus and subscapularis are intact. She is requesting trigger thumb injection as well. There are no fever, chills or constitutional symptoms. Spouse is present and very supportive. SUBJECTIVE: MEDICATIONS: Current Outpatient Medications Medication Instructions ALPRAZolam (XANAX) 0.25 mg, Oral, 3 times daily PRN apixaban (ELIQUIS) 5 mg, Oral, 2 times daily buPROPion XL (WELLBUTRIN XL) 300 mg, Oral, Every 24 hours Calcium Carbonate-Vit D-Min (CALTRATE 600+D PLUS MINERALS PO) Take by mouth. cholecalciferol (Vitamin D3) 25 MCG (1000 UT) tablet Every 24 hours cyanocobalamin (Vitamin B-12) 500 MCG tablet Every 24 hours cyclobenzaprine (FLEXERIL) 5 mg, Oral, 3 times daily PRN denosumab (PROLIA) 60 mg, Subcutaneous, Every 6 months ezetimibe (ZETIA) 10 mg, Oral, Daily gabapentin (NEURONTIN) 300 mg, Nightly Multiple Vitamins-Minerals (PRESERVISION AREDS 2 PO) Every 24 hours omeprazole (PRILOSEC) 40 mg, 2 times daily before meals ALLERGIES: No Known Allergies SURGICAL HISTORY: Past Surgical History: Procedure Laterality Date APPENDECTOMY 1972 BACK SURGERY 2001 BREAST SURGERY 1980 reduction CARPAL TUNNEL RELEASE CARPAL TUNNEL RELEASE Right 11/22/2022 DR RAMÍREZ CHOLECYSTECTOMY 1982 COLONOSCOPY 2009 COLONOSCOPY 11/30/2018 COLONOSCOPY W/ BIOPSIES EGD 12/24/2023 anastomotic ulcer ESOPHAGOSCOPY / EGD 06/28/2019 FINGER SURGERY 2008 foreign body surgery FINGER SURGERY Left 01/30/2021 [facility] arthroplasty GASTRIC BYPASS 02/2008 HIP ARTHROPLASTY Right 2016 DR. YEN HYSTERECTOMY 1989 JOINT REPLACEMENT 2005 and 2022 hips LUMBAR FUSION 01/2014 3 vertebrae w/ 4 cages NERVE SURGERY ablation, 11/21 & 12/06/2019 OTHER SURGICAL HISTORY 05/16/2017 L4/L5 Nerve Facet Block OTHER SURGICAL HISTORY 08/19/2017 TVT-O OTHER SURGICAL HISTORY 03/2022 RFA L5, S1-S3 REVISION TOTAL HIP ARTHROPLASTY Left 07/17/2022 SPINE SURGERY 01/2014 TONSILLECTOMY 1972 TOTAL ABDOMINAL HYSTERECTOMY 1988 RSO TOTAL HIP ARTHROPLASTY Right 03/2016 TUBAL LIGATION VAGINA SURGERY ablation VAGINECTOMY partial simple vaginectomy & laser FAMILY HISTORY: Family History Problem Relation Name Age of Onset Cancer Mother Minoo Ríos Heart disease Mother Minoo Ríos Hypertension Mother Minoo Ríos Lung cancer Father George Ríos Cancer Father George Ríos Cancer Brother Tamia Ríos Cancer Brother Wolfgang Ríos SOCIAL HISTORY: Social History Tobacco Use Smoking status: Former Current packs/day: 0.00 Average packs/day: 1.5 packs/day for 15.0 years (22.5 ttl pk-yrs) Types: Cigarettes Quit date: 10/20/2006 Years since quittin.9 Smokeless tobacco: Never Vaping Use Vaping status: Never Used Substance Use Topics Alcohol use: Not Currently Alcohol/week: 3.0 - 4.0 standard drinks of alcohol Comment: 6+ drinks monthly. Caffine intake: 1-2 cups per day Drug use: Never Depression: Not at risk (08/05/2024) Received from [employer] PHQ-2 Total Score: 2 REVIEW OF SYMPTOMS: The review of systems, history and current medications list are all reviewed today. OBJECTIVE: Visit Vitals Ht 5' 4 Wt 140 lb BMI 24.03 kg/m Smoking Status Former BSA 1.69 m Physical Exam On physical exam, she is alert and oriented. Vital signs are stable. The shoulder has mild hue of posterior bruising. There is moderate tenderness of the rotator cuff insertional area. A/C joint tenderness is moderate. Cross arm is negative. Biceps exam is intact. Rotator cuff has signs of weakness that is moderate. She is neurovascularly intact distally. She has hypertrophic degenerative changes of both hands. The right thumb has hypertrophic MCP joint. There is no bruising, rash or infection. There is mild swelling of the hand in general. No instability. The right thumb has a moderate amount of stiffness of the A1 lb. There is hoda clicking and catching consistent with trigger thumb. Carpal, cubital and Guyon's is negative. X-rays, permanently saved to the patient's record, are reviewed show moderate degenerative changes of the thumb. There is a questionable stress fracture adjacent to the MCP joint. It appears to be more arthritic change though. X-rays, permanently saved to the patient's record, are reviewed of the shoulder show a moderately hypertrophic A/C joint. Mild glenohumeral arthrosis. There is no acute fracture, dislocation, tumor or infection seen. These are performed this past week through the [facility]. MRI as above. ASSESSMENT AND PLAN: Assessment/Plan Right shoulder impingement syndrome with small fullness rotator cuff tear. Right trigger thumb. The nature of the findings were discussed at length. Both pathology areas were reviewed. She has tried injections to the shoulder with continued pain. We discussed the role of shoulder arthroscopy with rotator cuff repair. The immobilization, time, healing, commitment and expectations were reviewed. She will obviously have to be stable with her forefoot surgery as well as cleared with cardiology and neurology with her history of stroke and blood thinner. With consent from the patient today, limited ultrasound is performed identifying the thumb A1 lb. No cyst, mass or attritional rupture. With limited ultrasound, 0.5 cc of cortisone (1.5 mg of Betamethasone sodium phosphate/1.5 mg of Betamethasone acetate) with 0.5 cc of 1% plain Lidocaine was injected to the right thumb A1 lb interface with ultrasound guidance with needle localization. Image capture is performed. The patient tolerated the injection well. She is aware that she can have up to three injections per year. We discussed the role of surgical A1 lb release if not getting better. She is tentatively scheduled for her left foot surgery with Dr. Lancaster on 10-20-2024. She will see how she responds over the next one to two months with healing at which point she will come back for repeat evaluation and further discussion of both orthopedic issues. She voices verbal understanding. She is discharged in stable condition. Spouse is present. The patient was seen and examined. From the time of check in, nurse triage, vital signs, x-ray, x-ray interpretation, review of systems, comprehensive history and physical exam as well as setting up treatment plan and further management took 35 minutes. Cosigned by Mandi Solomon DO at 09/29/2024 2:00 PM EDT documented in this encounter [facility] 09-28-2024 Telephone encounter Note My name is Deloris Bae, my phone number is [phone]. My date of is 1955, and I am going to be needing a refill on alprazolam 0.[address] France, thank you very much. Have a good day. And that is at [facility] [place]. -Copied from [facility] [facility] 09-28-2024 Miscellaneous Notes My name is Deloris Bae, my phone number is [phone]. My date of is 1955, and I am going to be needing a refill on alprazolam 0.[address] France, thank you very much. Have a good day. And that is at [facility] in [place]. 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 Treatment options discussed at length Risks Benefits Alternatives relative to procedure discussed Surgical Plan: LEFT FOOT Anterior tibial tendon transfer to tarsal cuboid 21904 Mid tarsal joint tenotomy and capsulotomy posterior tibial tendon 18659 Gastrocnemius recession 65136 Partial excision bone fifth metatarsal head LEFT 14210 Popliteal and distal femoral / saphenous nerve regional local anesthetic block General anesthesia Supine 2.5 hour Special equipment needed Arthrex endobutton or equivalent for anterior tibial tendon transfer to tarsal cuboid Tendon passer [facility] Work Phone: 09-24-2024 Miscellaneous Notes ----- Message from Trevor Lancaster DPM sent at 09/24/2024 2:39 PM EDT ----- ASSESSMENT: I69.954 Hemiparesis of left nondominant side as late effect of cerebrovascular disease, unspecified cerebrovascular disease type (HCC) (primary encounter diagnosis) M24.575 Foot contracture, left M62.462 Gastrocnemius equinus of left lower extremity Q66.222 Metatarsus adductus of left foot R26.2 Difficulty walking M21.622 Tailor's bunion of left foot PLAN: Explained to the patient etiology and treatment plan. Treatment options discussed at length Risks Benefits Alternatives relative to procedure discussed Surgical Plan: LEFT FOOT Anterior tibial tendon transfer to tarsal cuboid 50515 Mid tarsal joint tenotomy and capsulotomy posterior tibial tendon 89670 Gastrocnemius recession 66407 Partial excision bone fifth metatarsal head LEFT 76476 Popliteal and distal femoral / saphenous nerve regional local anesthetic block General anesthesia Supine 2.5 hour Special equipment needed Arthrex endobutton or equivalent for anterior tibial tendon transfer to tarsal cuboid Tendon passer documented in this encounter [facility] 09-24-2024 Note HNO ID: [id number] Author: TREVOR LANCASTER DPM Service: ? Author Type: Physician Type: Progress Notes Filed: 09/24/2024 14:39 Note Text: Patient Visit for Deloris Bae 1955 69 year old female SUBJECTIVE: Chief Complaint: Patient presents with: Left Foot - New Pain Scales: Verbal (Numeric Rating or Visual Analog Scale) Pain Level: (6 to 8) Pain Location: Foot-Left Description: Sharp Duration Amount of Time: (UNKNOWN, QUITE AWHILE) Duration Units: Unknown Frequency: Intermittent (MOST OF THE TIME) Intervention/Comfort measure: Splinting Additional HPI: LEFT FOOT contracture with difficulty walking and difficulty wearing AFO (Ankle Foot Orthosis) status post CVA (Cerebral Vascular Accident - Stroke) with partial Hemiparesis PCP: Tamia France MD PAST MEDICAL HISTORY Diagnosis Date Arthritis Depression Diabetes (HCC) Type II Endometriosis Enthesopathy of hip region 12/30/2006 Hyperlipidemia Severe vaginal dysplasia 01/23/2010 Tear of lateral cartilage or meniscus of knee, current 03/17/2007 Vaginal dysplasia Current Outpatient Medications Medication Sig apixaban (ELIQUIS) 5 mg tab(s) Take 5 mg by mouth two times a day. gabapentin (NEURONTIN) 300 mg capsule Take by mouth. ALPRAZolam (XANAX) 0.25 mg tablet Take 0.25 mg by mouth three times daily as needed. folic acid 1 mg tablet methotrexate 2.5 mg tablet predniSONE (DELTASONE) 1 mg tablet traMADol (ULTRAM) 50 mg tablet Take by mouth. buPROPion XL (WELLBUTRIN XL) 300 mg 24 hr tablet Take 300 mg by mouth once daily. ascorbic acid/bioflavonoids (COLLEEN C ORAL) Take by mouth. vit C/E/Zn/coppr/lutein/zeaxan (PRESERVISION AREDS-2 ORAL) Take by mouth. PNV Comb No.59/Iron/FA/DHA (-DHA ORAL) Take by mouth. calcium carbonate/vitamin d3(CALCIUM 600 + D(3) 600 MG (1,500)-200 UNIT TAB) Take one(1) tablet twice daily. CYANOCOBALAMIN (VITAMIN B-12) 1,000 MCG SUBLINGUAL TAB Take one(1) tablet daily. No current facility-administered medications for this visit. ALLERGIES No Known Allergies PAST SURGICAL HISTORY Procedure Laterality Date APPENDECTOMY 1972 BACK SURGERY HX 2001 CHOLECYSTECTOMY 1982 DANDC, DIAG AND/OR THERAPEUTIC 1987 x2 DESTR LES VAGINA SIMPLE ANY METH 02/23/10 Performed by EWNDY SHARMA at [facility] GASTRIC BYPASS 2007 KNEE ARTHROSCOPY 2006 LASER VAGINA LESION EXTEN LIGATE FALLOPIAN TUBE PAST SURGICAL HISTORY OF 2008 Finger surgery REDUCTION OF LARGE BREAST 1980 REMOVE VAGINA WALL, PARTIAL 02/23/10 Performed by WENDY SHARMA at [facility] TONSILLECTOMY HX 1971 TOTAL ABDOM HYSTERECTOMY 1988 and RSO FAMILY HISTORY Problem Relation Age of Onset Cancer Father Lung cancer Cancer Brother Squamous cell skin cancer Social History Tobacco Use Smoking status: Former Current packs/day: 0.00 Average packs/day: 1.5 packs/day for 28.0 years (42.0 ttl pk-yrs) Types: Cigarettes Start date: 06/16/1978 Quit date: 06/16/2006 Years since quittin.2 Smokeless tobacco: Never Substance Use Topics Alcohol use: Yes Tobacco Use: 1.5 packs/day, for 28 years. Quit 06/16/2006. Types: Cigarettes REVIEW OF SYSTEMS: The remainder of the ROS was reviewed with the patient and is negative except as noted. OBJECTIVE: General: Pleasant in no acute distress Lower extremity exam: Vascular exam: Normal vascular exam, palpable pluses with brisk capillary fill Neurological exam: gross epicritic sensation intact LEFT lower extremity loss of motor function peroneals Dermatological exam: Normal exam without rashes or lesions of skin. No evidence of evidence of petechiae, purpura, telangiectasia Musculoskeletal exam: Prominence of bone distal fifth metatarsal LEFT FOOT Diminished plantar adipose thin fat pad Medial midfoot contracture , posterior tibial tendon 5/5 Loss of motor function peroneals Anterior tibial tendon 4+/5 Gastrocnemius equinus LABS: Most recent labs reviewed LABORATORY STUDIES: Recent Labs 02/26/22 1027 WSR 5 CRP <0.3 CCPABG <15 RF <10 X-ray evidence of previous fifth metatarsal head resection Metatarsus adductus ASSESSMENT: I69.954 Hemiparesis of left nondominant side as late effect of cerebrovascular disease, unspecified cerebrovascular disease type (HCC) (primary encounter diagnosis) M24.575 Foot contracture, left M62.462 Gastrocnemius equinus of left lower extremity Q66.222 Metatarsus adductus of left foot R26.2 Difficulty walking M21.622 Tailor's bunion of left foot PLAN: Explained to the patient etiology and treatment plan. Treatment options discussed at length Risks Benefits Alternatives relative to procedure discussed Surgical Plan: LEFT FOOT Anterior tibial tendon transfer to tarsal cuboid 50128 Mid tarsal joint tenotomy and capsulotomy posterior tibial tendon 05511 Gastrocnemius recession 31191 Partial excision bone fifth metatarsal head LEFT 46826 Popliteal (more content not included)... [facility] 09-24-2024 History of Present illness Narrative Patient Visit for Deloris Bae 1955 69 year old female SUBJECTIVE: Chief Complaint: Patient presents with: Left Foot - New Pain Scales: Verbal (Numeric Rating or Visual Analog Scale) Pain Level: (6 to 8) Pain Location: Foot-Left Description: Sharp Duration Amount of Time: (UNKNOWN, QUITE AWHILE) Duration Units: Unknown Frequency: Intermittent (MOST OF THE TIME) Intervention/Comfort measure: Splinting Additional HPI: LEFT FOOT contracture with difficulty walking and difficulty wearing AFO (Ankle Foot Orthosis) status post CVA (Cerebral Vascular Accident - Stroke) with partial Hemiparesis PCP: Tamia France MD PAST MEDICAL HISTORY Diagnosis Date Arthritis Depression Diabetes (HCC) Type II Endometriosis Enthesopathy of hip region 12/30/2006 Hyperlipidemia Severe vaginal dysplasia 01/23/2010 Tear of lateral cartilage or meniscus of knee, current 03/17/2007 Vaginal dysplasia Current Outpatient Medications Medication Sig apixaban (ELIQUIS) 5 mg tab(s) Take 5 mg by mouth two times a day. gabapentin (NEURONTIN) 300 mg capsule Take by mouth. ALPRAZolam (XANAX) 0.25 mg tablet Take 0.25 mg by mouth three times daily as needed. folic acid 1 mg tablet methotrexate 2.5 mg tablet predniSONE (DELTASONE) 1 mg tablet traMADol (ULTRAM) 50 mg tablet Take by mouth. buPROPion XL (WELLBUTRIN XL) 300 mg 24 hr tablet Take 300 mg by mouth once daily. ascorbic acid/bioflavonoids (COLLEEN C ORAL) Take by mouth. vit C/E/Zn/coppr/lutein/zeaxan (PRESERVISION AREDS-2 ORAL) Take by mouth. PNV Comb No.59/Iron/FA/DHA (-DHA ORAL) Take by mouth. calcium carbonate/vitamin d3(CALCIUM 600 + D(3) 600 MG (1,500)-200 UNIT TAB) Take one(1) tablet twice daily. CYANOCOBALAMIN (VITAMIN B-12) 1,000 MCG SUBLINGUAL TAB Take one(1) tablet daily. No current facility-administered medications for this visit. ALLERGIES No Known Allergies PAST SURGICAL HISTORY Procedure Laterality Date APPENDECTOMY 1971 BACK SURGERY HX 2000 CHOLECYSTECTOMY 1981 D&C, DIAG AND/OR THERAPEUTIC 1987 x2 DESTR LES VAGINA SIMPLE ANY METH 02/23/10 Performed by WENDY SHARMA at [facility] GASTRIC BYPASS 2007 KNEE ARTHROSCOPY 2006 LASER VAGINA LESION EXTEN LIGATE FALLOPIAN TUBE PAST SURGICAL HISTORY OF 2007 Finger surgery REDUCTION OF LARGE BREAST 1979 REMOVE VAGINA WALL, PARTIAL 02/23/10 Performed by WENDY SHARMA at [facility] TONSILLECTOMY HX 1971 TOTAL ABDOM HYSTERECTOMY 1988 and RSO FAMILY HISTORY Problem Relation Age of Onset Cancer Father Lung cancer Cancer Brother Squamous cell skin cancer Social History Tobacco Use Smoking status: Former Current packs/day: 0.00 Average packs/day: 1.5 packs/day for 28.0 years (42.0 ttl pk-yrs) Types: Cigarettes Start date: 06/16/1978 Quit date: 06/16/2006 Years since quittin.2 Smokeless tobacco: Never Substance Use Topics Alcohol use: Yes Tobacco Use: 1.5 packs/day, for 28 years. Quit 06/16/2006. Types: Cigarettes REVIEW OF SYSTEMS: The remainder of the ROS was reviewed with the patient and is negative except as noted. OBJECTIVE: General: Pleasant in no acute distress Lower extremity exam: Vascular exam: Normal vascular exam, palpable pluses with brisk capillary fill Neurological exam: gross epicritic sensation intact LEFT lower extremity loss of motor function peroneals Dermatological exam: Normal exam without rashes or lesions of skin. No evidence of evidence of petechiae, purpura, telangiectasia Musculoskeletal exam: Prominence of bone distal fifth metatarsal LEFT FOOT Diminished plantar adipose thin fat pad Medial midfoot contracture , posterior tibial tendon 5/5 Loss of motor function peroneals Anterior tibial tendon 4+/5 Gastrocnemius equinus LABS: Most recent labs reviewed LABORATORY STUDIES: Recent Labs 02/26/22 1027 WSR 5 CRP <0.3 CCPABG <15 RF <10 X-ray evidence of previous fifth metatarsal head resection Metatarsus adductus ASSESSMENT: I69.954 Hemiparesis of left nondominant side as late effect of cerebrovascular disease, unspecified cerebrovascular disease type (HCC) (primary encounter diagnosis) M24.575 Foot contracture, left M62.462 Gastrocnemius equinus of left lower extremity Q66.222 Metatarsus adductus of left foot R26.2 Difficulty walking M21.622 Tailor's bunion of left foot PLAN: Explained to the patient etiology and treatment plan. Treatment options discussed at length Risks Benefits Alternatives relative to procedure discussed Surgical Plan: LEFT FOOT Anterior tibial tendon transfer to tarsal cuboid 05227 Mid tarsal joint tenotomy and capsulotomy posterior tibial tendon 64413 Gastrocnemius recession 97554 Partial excision bone fifth metatarsal head LEFT 16713 Popliteal and distal femoral / saphenous nerve regional local anesthetic block General anesthesia Supine Special equipment needed Arthrex endobutton or equivalent for anterior tibial tendon transfer to tarsal cuboid Tendon passer All questions were answered. Deloris Bae appeared to be well informed. Greater than 50% of the visit was spent face to face counseling and/or coordinating care for the patient. Trevor Lancaster DPM documented in this encounter [facility] 09-24-2024 Note HNO ID: [id number] Author: FERNIE RIOS RT(R) Service: ? Author Type: Technologist Type: Progress Notes Filed: 09/24/2024 10:01 Note Text: Radiology Service Progress Note PATIENT NAME: Deloris Bae DATE OF SERVICE: September 24, 2024 TIME: 10:01 AM PATIENT IDENTITY VERIFICATION COMPLETED USING TWO (2) IDENTIFIERS: Name and Date of confirmed by patient verbally. FALL SCREENING: Has the patient had 2 falls in the last year or 1 fall with injury or currently using an Ambulatory Assistive Device (Walker, Cane, Wheelchair, Crutches, etc.)? Yes, Patient High Risk for Falls What interventions were put in place to prevent falls during this visit? Yellow Falls Risk Wristband Applied, Instructed Patient to Call for Help if Needed, Offered Assistance with Transfers/Clothing, Instructed Patient to Remain Seated (Not on Exam Table) Until Exam, and Increased Observations by Caregivers PATIENT GENDER DATA: Assigned female at . status: : No status: N/A PATIENT RELEVANT IMPLANT DATA REVIEWED: Not Applicable PATIENT PRESENTS WITH AN IMPLANTABLE OR ATTACHED CLERK RATING: No RADIOLOGY DEPARTMENT: General X-ray: Exam(s) Completed: Lower Extremity X-Ray(s): Foot, Left and Wt. Bearing PERIPHERAL IV DATA: Not applicable SIGNED BY: RT Sharmaine(R) September 24, 2024 10:01 AM [facility] 09-24-2024 History of Present illness Narrative Radiology Service Progress Note PATIENT NAME: Delorsi Bae DATE OF SERVICE: September 24, 2024 TIME: 10:01 AM PATIENT IDENTITY VERIFICATION COMPLETED USING TWO (2) IDENTIFIERS: Name and Date of confirmed by patient verbally. FALL SCREENING: Has the patient had 2 falls in the last year or 1 fall with injury or currently using an Ambulatory Assistive Device (Walker, Cane, Wheelchair, Crutches, etc.)? Yes, Patient High Risk for Falls What interventions were put in place to prevent falls during this visit? Yellow Falls Risk Wristband Applied, Instructed Patient to Call for Help if Needed, Offered Assistance with Transfers/Clothing, Instructed Patient to Remain Seated (Not on Exam Table) Until Exam, and Increased Observations by Caregivers PATIENT GENDER DATA: Assigned female at . status: : No status: N/A PATIENT RELEVANT IMPLANT DATA REVIEWED: Not Applicable PATIENT PRESENTS WITH AN IMPLANTABLE OR ATTACHED CLERK RATING: No RADIOLOGY DEPARTMENT: General X-ray: Exam(s) Completed: Lower Extremity X-Ray(s): Foot, Left and Wt. Bearing PERIPHERAL IV DATA: Not applicable SIGNED BY: RT Sharmaine(R) September 24, 2024 10:01 AM documented in this encounter [facility] 09-20-2024 Telephone encounter Note Pt is requesting a refill on Hydrocodone Acetaminophen to [facility] [place] but I do not see it on her list [facility] 09-20-2024 Miscellaneous Notes Pt is requesting a refill on Hydrocodone Acetaminophen to [facility] [place] but I do not see it on her list documented in this encounter [facility] 09-10-2024 History of Present illness Narrative Images from the original note were not included. Deloris Bae is a 69 y.o. female presents with chief complaint of right shoulder pain and stiffness. Follow up right trigger thumb. HPI: Deloris is here with her spouse of which she had her fall. She had CT scan of her head and neck. She had a recent cardiac stress test which was stable per her report. She has had a stroke in years past. No MRI of the shoulder. The injection provided helped partially for one to two days. There are no fever, chills or constitutional symptoms. She still has her trigger thumb but states that is livable. SUBJECTIVE: MEDICATIONS: Current Outpatient Medications Medication Instructions ALPRAZolam (XANAX) 0.25 mg, Oral, 3 times daily PRN apixaban (ELIQUIS) 5 mg, 2 times daily buPROPion XL (WELLBUTRIN XL) 300 mg, Oral, Every 24 hours Calcium Carbonate-Vit D-Min (CALTRATE 600+D PLUS MINERALS PO) Take by mouth. cholecalciferol (Vitamin D3) 25 MCG (1000 UT) tablet Every 24 hours cyanocobalamin (Vitamin B-12) 500 MCG tablet Every 24 hours cyclobenzaprine (FLEXERIL) 5 mg, Oral, 3 times daily PRN denosumab (PROLIA) 60 mg, Subcutaneous, Every 6 months ezetimibe (ZETIA) 10 mg, Oral, Daily gabapentin (NEURONTIN) 300 mg, Nightly Multiple Vitamins-Minerals (PRESERVISION AREDS 2 PO) Every 24 hours omeprazole (PRILOSEC) 40 mg, 2 times daily before meals ALLERGIES: No Known Allergies SURGICAL HISTORY: Past Surgical History: Procedure Laterality Date APPENDECTOMY 1972 BACK SURGERY 2001 BREAST SURGERY 1980 reduction CARPAL TUNNEL RELEASE CARPAL TUNNEL RELEASE Right 11/22/2022 DR RAMÍREZ CHOLECYSTECTOMY 1982 COLONOSCOPY 2009 COLONOSCOPY 11/30/2018 COLONOSCOPY W/ BIOPSIES EGD 12/24/2023 anastomotic ulcer ESOPHAGOSCOPY / EGD 06/28/2019 FINGER SURGERY 2008 foreign body surgery FINGER SURGERY Left 01/30/2021 [facility] arthroplasty GASTRIC BYPASS 02/2008 HIP ARTHROPLASTY Right 2016 DR. YEN HYSTERECTOMY 1989 JOINT REPLACEMENT 2005 and 2022 hips LUMBAR FUSION 01/2014 3 vertebrae w/ 4 cages NERVE SURGERY ablation, 11/21 & 12/06/2019 OTHER SURGICAL HISTORY 05/16/2017 L4/L5 Nerve Facet Block OTHER SURGICAL HISTORY 08/19/2017 TVT-O OTHER SURGICAL HISTORY 03/2022 RFA L5, S1-S3 REVISION TOTAL HIP ARTHROPLASTY Left 07/17/2022 SPINE SURGERY 01/2014 TONSILLECTOMY 1972 TOTAL ABDOMINAL HYSTERECTOMY 1989 RSO TOTAL HIP ARTHROPLASTY Right 03/2016 TUBAL LIGATION VAGINA SURGERY ablation VAGINECTOMY partial simple vaginectomy & laser FAMILY HISTORY: Family History Problem Relation Name Age of Onset Cancer Mother Minoo Ríos Heart disease Mother Minoo Ríos Hypertension Mother Minoo Ríos Lung cancer Father George Ríos Cancer Father George Ríos Cancer Brother Tamia Ríos Cancer Brother Wolfgang Ríos SOCIAL HISTORY: Social History Tobacco Use Smoking status: Former Current packs/day: 0.00 Average packs/day: 1.5 packs/day for 15.0 years (22.5 ttl pk-yrs) Types: Cigarettes Quit date: 10/20/2006 Years since quittin.9 Smokeless tobacco: Never Vaping Use Vaping status: Never Used Substance Use Topics Alcohol use: Not Currently Alcohol/week: 3.0 - 4.0 standard drinks of alcohol Comment: 6+ drinks monthly. Caffine intake: 1-2 cups per day Drug use: Never Depression: Not at risk (08/05/2024) Received from [employer] PHQ-2 Total Score: 2 REVIEW OF SYMPTOMS: The review of systems, history and current medications list are all reviewed today. OBJECTIVE: Visit Vitals Ht 5' 4 Wt 140 lb BMI 24.03 kg/m Smoking Status Former BSA 1.69 m Physical Exam On physical exam, she is alert and oriented. Vital signs are stable. The shoulder has mild hue of posterior bruising. There is moderate tenderness of the rotator cuff insertional area. A/C joint tenderness is moderate. Cross arm is negative. Biceps exam is intact. Rotator cuff has signs of weakness that is moderate. She is neurovascularly intact distally. She has hypertrophic degenerative changes of both hands. The right thumb has hypertrophic MCP joint. There is no bruising, rash or infection. There is mild swelling of the hand in general. No instability. X-rays, permanently saved to the patient's record, are reviewed show moderate degenerative changes of the thumb. There is a questionable stress fracture adjacent to the MCP joint. It appears to be more arthritic change though. X-rays, permanently saved to the patient's record, are reviewed of the shoulder show a moderately hypertrophic A/C joint. Mild glenohumeral arthrosis. There is no acute fracture, dislocation, tumor or infection seen. These are performed this past week through the [facility]. ASSESSMENT AND PLAN: Assessment/Plan Right shoulder rotator cuff tear, impingement syndrome, underlying osteoarthritis. Trigger thumb. Remote history of stroke. The nature of the findings were discussed at length. We discussed her lack of improvement with home exercise program. Ice, Tylenol and analgesia as well as cortisone injection. We discussed the potential role of shoulder arthroscopy with rotator cuff repair, possible consideration of reverse arthroplasty. We offered treatment for her trigger thumb with injection but this was declined. We discussed the penitentiary role of surgical A1 lb release. We will see how she responds with continued care of the thumb. We will set up an MRI of the right shoulder and I will see her back post imaging for discussion and treatment options. She voices verbal understanding. She is discharged in stable condition. The patient was seen and examined. From the time of check in, nurse triage, vital signs, x-ray, x-ray interpretation, review of systems, comprehensive history and physical exam as well as setting up treatment plan and further management took 35 minutes. Cosigned by Mandi Solomon DO at 09/13/2024 2:41 PM EDT documented in this encounter [facility] 08-11-2024 History of Present illness Narrative Images from the original note were not included. Deloris Bae is a 69 y.o. female presents with chief complaint of right arm pain HPI: History of Present Illness The patient is a 69-year-old female who presents today for an ER follow-up after a fall. She experienced a stroke in April, which was followed by a 4-week rehabilitation period and ongoing physical therapy. She has had 2 falls since the stroke. The first fall occurred when she stepped off a curb without her walker, resulting in a tailbone injury. The second fall happened in the bathroom where she tripped on a fatigue mat, causing her to fall backwards and sustain injuries to her arm and head, necessitating the placement of 6 luz marina in the back of her head. These luz marina have since been removed. She reports no headaches, dizziness, or blurred vision. She experiences severe pain in her arms and hands upon waking each morning, with the right side being more affected than the left. She also reports swelling in her hands, which prevents her from wearing rings. Her range of motion is limited, and she experiences pain that radiates up to her shoulder. She has noticed persistent bruising, which she suspects may be related to her Eliquis medication. She reports no numbness or tingling in her fingers. She reports no shortness of breath, chest pain, or cough. She does not get up by herself at night. She has not been taking any pain medication but has previously taken Tylenol and tramadol. She is currently under the care of a airbrush painter, Dr. Enriquez, who prescribed tramadol for her back issues. She last saw him in January 2024. She underwent an ablation procedure on her back and has been doing well since. She is currently on Wellbutrin 300 mg and gabapentin. She is currently undergoing physical therapy and is scheduled for her next session on Friday. MEDICATIONS Current: Eliquis, Wellbutrin, gabapentin I have reviewed and reconciled the history and medication list with the patient today. HISTORIES: PAST MEDICAL HISTORY: Past Medical History: Diagnosis Date Anxiety Arthritis Fibrocystic breast Hypertension (CMS/HCC) Intestinal malabsorption (CMS/HCC) Major depression (CMS/HCC) Multilevel degenerative disc disease Osteoporosis (CMS/HCC) S/P bariatric surgery Status post total hip replacement, left Stroke (CMS/HCC) 04/2024 SURGICAL HISTORY: Past Surgical History: Procedure Laterality Date APPENDECTOMY 1972 BACK SURGERY 2001 BREAST SURGERY 1980 reduction CARPAL TUNNEL RELEASE CARPAL TUNNEL RELEASE Right 11/22/2022 DR RAMÍREZ CHOLECYSTECTOMY 1982 COLONOSCOPY 2009 COLONOSCOPY 11/30/2018 COLONOSCOPY W/ BIOPSIES EGD 12/24/2023 anastomotic ulcer ESOPHAGOSCOPY / EGD 06/28/2019 FINGER SURGERY 2008 foreign body surgery FINGER SURGERY Left 01/30/2021 Tumbh CMC arthroplasty GASTRIC BYPASS 02/2008 HIP ARTHROPLASTY Right 2016 DR. YEN HYSTERECTOMY 1989 JOINT REPLACEMENT 2005 and 2022 hips LUMBAR FUSION 01/2014 3 vertebrae w/ 4 cages NERVE SURGERY ablation, 11/21 & 12/06/2019 OTHER SURGICAL HISTORY 05/16/2017 L4/L5 Nerve Facet Block OTHER SURGICAL HISTORY 08/19/2017 TVT-O OTHER SURGICAL HISTORY 03/2022 RFA L5, S1-S3 REVISION TOTAL HIP ARTHROPLASTY Left 07/17/2022 SPINE SURGERY 01/2014 TONSILLECTOMY 1972 TOTAL ABDOMINAL HYSTERECTOMY 1989 RSO TOTAL HIP ARTHROPLASTY Right 03/2016 TUBAL LIGATION VAGINA SURGERY ablation VAGINECTOMY partial simple vaginectomy & laser SOCIAL HISTORY: Social History Tobacco Use Smoking status: Former Current packs/day: 0.00 Average packs/day: 1.5 packs/day for 15.0 years (22.5 ttl pk-yrs) Types: Cigarettes Quit date: 10/20/2006 Years since quittin.8 Smokeless tobacco: Never Vaping Use Vaping status: Never Used Substance Use Topics Alcohol use: Not Currently Alcohol/week: 3.0 - 4.0 standard drinks of alcohol Comment: 6+ drinks monthly. Caffine intake: 1-2 cups per day Drug use: Never Depression: Not at risk (08/05/2024) Received from [employer] PHQ-2 Total Score: 2 FAMILY HISTORY: Family History Problem Relation Name Age of Onset Cancer Mother Minoo Ríos Heart disease Mother Minoo Ríos Hypertension Mother Minoo Ríos Lung cancer Father George Ríos Cancer Father George Santiagoza Cancer Brother Tamia Ríos Cancer Brother Wolfgang Ríos MEDICATIONS: Current Outpatient Medications Medication Instructions ALPRAZolam (XANAX) 0.25 mg, Oral, 3 times daily PRN apixaban (ELIQUIS) 5 mg, 2 times daily buPROPion XL (WELLBUTRIN XL) 300 mg, Oral, Every 24 hours Calcium Carbonate-Vit D-Min (CALTRATE 600+D PLUS MINERALS PO) Take by mouth. cholecalciferol (Vitamin D3) 25 MCG (1000 UT) tablet Every 24 hours cyanocobalamin (Vitamin B-12) 500 MCG tablet Every 24 hours denosumab (PROLIA) 60 mg, Subcutaneous, Every 6 months ezetimibe (ZETIA) 10 mg, Oral, Daily Multiple Vitamins-Minerals (PRESERVISION AREDS 2 PO) Every 24 hours omeprazole (PRILOSEC) 40 mg, 2 times daily before meals ALLERGIES: No Known Allergies PHYSICAL EXAM: Visit Vitals BP 124/76 Pulse 93 Wt 140 lb SpO2 96% BMI 24.03 kg/m Smoking Status Former BSA 1.69 m BP Readings from Last 3 Encounters: 08/11/24 124/76 07/26/24 140/82 06/23/24 134/72 Wt Readings from Last 3 Encounters: 08/11/24 140 lb 07/26/24 141 lb 8 oz 06/23/24 140 lb Physical Exam Constitutional: General: She is not in acute distress. Appearance: Normal appearance. HENT: Head: Normocephalic. Eyes: Extraocular Movements: Extraocular movements intact. Neck: Vascular: No carotid bruit. Cardiovascular: Rate and Rhythm: Normal rate and regular rhythm. Heart sounds: Normal heart sounds. No murmur heard. Pulmonary: Effort: Pulmonary effort is normal. No respiratory distress. Breath sounds: Normal breath sounds. No wheezing, rhonchi or rales. Musculoskeletal: General: Tenderness present. Normal range of motion. Right shoulder: Deformity and tenderness present. Right upper arm: Tenderness present. Right hand: Swelling present. Cervical back: Normal range of motion. Comments: Tenderness of right shoulder , swelling of right hand, limited ROM of cervical spine, brace on left lower extremity, right clavicle deformity, tenderness of right upper arm Skin: General: Skin is warm and dry. Neurological: Mental Status: She is alert and oriented to person, place, and time. Psychiatric: Mood and Affect: Mood normal. Thought Content: Thought content normal. Judgment: Judgment normal. Results Imaging CT scan of the head and neck were unremarkable per radiologist. X-ray of the hip showed no issues. CT cervical spine showed extensive C4 T1 spondylosis and multilevel spondylosis. Brain CAT scan showed nothing acute. X-ray of the sacrum and coccyx showed no pelvic fractures. ASSESSMENT AND PLAN: Assessment & Plan 1. Fall, subsequent encounter (Primary) - XR shoulder 2+ views right - XR humerus right -She experienced 2 falls, one involving a trip on a fatigue mat resulting in a head injury requiring 6 luz marina, which have since been removed. She reports significant pain in her right arm and hand, especially in the morning, with swelling and limited range of motion. There is no numbness or tingling. Previous x-rays from 2021 showed moderate degenerative changes. An x-ray of the right shoulder, including the clavicle and humerus, will be ordered. A muscle relaxant, Flexeril 5 mg, will be prescribed for use at bedtime. Tramadol will be prescribed, contingent upon approval from Dr. France, as she has a pain management contract. 2. Acute pain of right shoulder - XR shoulder 2+ views right - XR humerus right 3. Pain in right upper arm -xray humerus post fall 4. Localized swelling on right hand -She reports swelling in her right hand, especially in the morning, which limits her ability to wear rings and affects her range of motion. An x-ray of the right hand will be ordered to rule out any fractures or other issues. 5. Neck pain -referral sent to [facility] for neck exercises and shoulder exercises 6. Cervical spondylosis -She has extensive C4-T1 spondylosis and multilevel spondylosis, contributing to neck stiffness and discomfort. A referral for physical therapy focusing on the neck and right shoulder will be made. 7. Limited range of motion (ROM) of shoulder -PT referral for frozen shoulder exercises PROCEDURE Six luz marina were placed in the back of her head following a fall. These luz marina have since been removed. documented in this encounter [facility] 08-05-2024 History of Present illness Narrative Images from the original note were not included. [facility] [address] [facility] [id number] Patient: Deloris Bae Date of : 1955 Encounter Date: 08/05/2024 Patient Care Team: Tamia France MD as PCP - General Canelo Villarreal MD as Referring Physician (Rheumatology) Reason for visit: History of Present Illness: Subjective: Deloris Bae is a right handed 69 y.o. female with past medical history significant for prior who was hospitalized in (04/2024) for ischemic stroke secondary to cryptogenic. Patient is being seen in clinic today for routine follow up. Past medical history is significant for smoking for 25 years 1 pack to 1-1/2 pack cristel discontinued in 2006, history of essential hypertension, hyperlipidemia, prior suspected ICAD related ischemic stroke and previously on aspirin monotherapy. No history of atrial fibrillation, cardiac disease/peripheral arterial disease. No hx of T2DM She presented initially for sudden onset left-sided weakness and it was revealed she had a right M2 occlusion status post TNK. Patient was transferred over to [facility] for CT perfusion and diagnostic cerebral angiogram. On diagnostic cerebral angiogram M2 clot mood more distally to an M4, no thrombectomy. She was discharged without complications. The patient discharged to inpatient rehab on 04/29 with Eliquis monotherapy. Deloris Bae is accompanied in the office by her spouse. Since her discharge, she has made substantial recovery and happy with her results. Past Medical, Family, Surgical, and Social History Update: The following portions of the patient's history were reviewed and updated as appropriate: allergies, current medications, past family history, past medical history, past social history, past surgical history and problem list. Review of Systems Review of Systems Constitutional: Negative for decreased appetite, malaise/fatigue, weight gain and weight loss. HENT: Negative for nosebleeds. Eyes: Negative for blurred vision, double vision, vision loss in left eye, vision loss in right eye and visual disturbance. Cardiovascular: Negative for irregular heartbeat, leg swelling, near-syncope, palpitations and syncope. Respiratory: Negative for shortness of breath and sleep disturbances due to breathing. Hematologic/Lymphatic: Negative for bleeding problem. Does not bruise/bleed easily. Skin: Negative for poor wound healing. Musculoskeletal: Positive for arthritis. Negative for falls, muscle cramps, muscle weakness, myalgias and neck pain. Gastrointestinal: Negative for dysphagia. Neurological: Negative for aphonia, difficulty with concentration, disturbances in coordination, dizziness, focal weakness, headaches, light-headedness, loss of balance, numbness, paresthesias, seizures, sensory change, vertigo and weakness. Psychiatric/Behavioral: Positive for depression. Negative for altered mental status and memory loss. The patient is nervous/anxious. The patient does not have insomnia. Past Medical History: Diagnosis Date Anxiety Polymyalgia rheumatica ([facility]) 2018 Primary osteoarthritis of left hip Stroke ([facility]) Visual impairment Family History Problem Relation Age of Onset Lung cancer Father Cancer Brother Cancer Brother Anesthesia problems Neg Hx Past Surgical History: Procedure Laterality Date CEREBRAL ANGIOGRAM N/A 04/24/2024 Performed by Gonzalo Nicole MD at [facility]ATH [facility]S CHOLECYSTECTOMY GASTRIC BYPASS 2008 HIP ARTHROPLASTY Right 03/22/2016 HYSTERECTOMY LUMBAR LAMINECTOMY RADIO FREQUENCY ABLATION 03/26/2022 Lower back REPLACEMENT TOTAL JOINT HIP ANTERIOR SUPINE INTERMUSCULAR Left 07/17/2022 Performed by Oneil Yen MD at [facility] Current Outpatient Medications Medication Sig Dispense Refill ALPRAZolam (XANAX) 0.25 mg tablet Take 1 tablet (0.25 mg total) by mouth every 8 (eight) hours as needed Indications: anxious. apixaban (ELIQUIS) 5 mg tablet Take 1 tablet (5 mg total) by mouth in the morning and 1 tablet (5 mg total) before bedtime. Do all this for 180 days. 180 tablet 1 buPROPion XL (WELLBUTRIN XL) 300 mg 24 hr tablet Take 1 tablet (300 mg total) by mouth in the morning. Indications: anxiousness associated with depression. CALCIUM CARBONATE/VITAMIN D3 (CALTRATE 600 + D ORAL) Take by mouth. CHOLECALCIFEROL, VITAMIN D3, (VITAMIN D3 ORAL) Take by mouth. CYANOCOBALAMIN, VITAMIN B-12, (VITAMIN B-12 ORAL) Take by mouth. omeprazole (PriLOSEC) 40 mg capsule Take 1 capsule (40 mg total) by mouth in the morning and 1 capsule (40 mg total) before bedtime. gabapentin (NEURONTIN) 300 mg capsule Take 1 capsule (300 mg total) by mouth nightly. No current facility-administered medications for this visit. (All medications reviewed and updated by provider since last office visit or hospitalization) Tobacco History: Social History Tobacco Use Smoking Status Former Types: Cigarettes Smokeless Tobacco Never Tobacco Comments quit 12 years (If patient a smoker, smoking cessation counseling offered) Social History: Social History Substance and Sexual Activity Alcohol Use Not Currently Comment: weekly Allergies: No Known Allergies Objective: Wt 63 kg (139 lb) BMI 23.86 kg/m Last Neuro Imaging: MRI brain wo contrast 04/2024 IMPRESSION: 1. Acute to early subacute cortical ischemia of the high medial right frontal and perirolandic regions. 2. Redemonstration of diminished flow within the intracranial left internal carotid artery. 3. Additional findings as described. CTA head/neck 04/2024 Hypolastic L carotid artery otherwise no significant findings Physical Exam: Neurology Physical Exam NIH Stroke Scale 1a Level of consciousness: 0=alert; keenly responsive 1b. LOC questions: 0=Performs both tasks correctly 1c. LOC commands: 0=Performs both tasks correctly 2. Best Gaze: 0=normal 3. Visual: 0=No visual loss 4. Facial Palsy: 1=Minor paralysis (flattened nasolabial fold, asymmetric on smiling) 5a. Motor left arm: 1=Drift, limb holds 90 (or 45) degrees but drifts down before full 10 seconds: does not hit bed 5b. Motor right arm: 0=No drift, limb holds 90 (or 45) degrees for full 10 seconds 6a. motor left le=Drift, limb holds 90 (or 45) degrees but drifts down before full 10 seconds: does not hit bed 6b Motor right le=No drift, limb holds 90 (or 45) degrees for full 10 seconds 7. Limb Ataxia: 0=Absent 8. Sensory: 0=Normal; no sensory loss 9. Best Language: 0=No aphasia, normal 10. Dysarthria: 0=Normal 11. Extinction and Inattention: 0=No abnormality Total: 3 General Appearance: Alert, active, cooperative, and in no distress Head: Normocephalic, without obvious abnormality, atraumatic Eyes: conjunctivae/corneas clear. PERRL, EOM's intact. ENT: ENT exam normal Neck: supple, symmetrical, trachea midline Lungs: Non-labored Heart: regular rate and rhythm Extremities: extremities normal, atraumatic, no cyanosis or edema Skin: Skin color, texture, turgor normal. No rashes or lesions Neurologic: Grossly normal NIHSS3 MRS: PHQ9: Depression Screening Risk Factor Management: Hypertension target range 130-140/70-80 Lipid range - LDL < 70 and checked every 6 months, fasting Diabetes - HgB A1C <7 Assessment/Plan: Deloris Bae is a 69 y.o. female who presents to clinic for evaluation for x2 cryptogenic ischemic strokes. She has prior smoking history and HTN but otherwise no significant risk factors. She takes Eliquis for prevention and denies any complications. Examination today is remarkable for NIHSS 3 for mild facial palsy, LUE and LLE drift. She uses a walker/cane at all times due to recent falls. MRI brain wo contrast demonstrated L chronic parietal infarct and R A2 ischemic stroke. CTA re-demonstrated L hypoplastic ICA but otherwise no significant ICAD. Impression: Cryptogenic ischemic stroke x2, suspected cardioembolic Patient Active Problem List Diagnosis Primary osteoarthritis of left hip Primary osteoarthritis of left knee Polymyalgia rheumatica (CMS-HCC) Anxiety Status post total hip replacement, left Degenerative disc disease, lumbar 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 Lumbosacral radiculopathy at L3 Cerebrovascular accident (CVA), unspecified mechanism (CMS-HCC) 1) Follow up with cardiology and consider loop recorder. 2) Continue Eliquis 5 mg twice daily. 3) Continue physical and occupational therapy. EXCELLENT WORK!!. 4) Follow up in 4-6 months with our team. In addition I did review the signs/ symptoms of stroke including BE FAST (B) balance issues, (E) acute eye/ vision changes, (F) facial droop, (A) Arm/ leg weakness, (S) speech disturbance and (T) time to call 911 if these symptoms occur. This note was completed using a voice marketing rotation associate system. Every effort was made to ensure accuracy; however, inadvertent computerized marketing rotation associate errors may be present Attending Attestation: I saw the patient. I participated and was physically present during the critical/briscoe portions of the service. I was directly involved in the management and treatment plan of the patient. I reviewed the resident's note. documented in this encounter [employer] 08-05-2024 Instructions Andrea Avilez MD - 08/05/2024 11:00 AM EST 1) Follow up with cardiology and consider loop recorder. 2) Continue Eliquis 5 mg twice daily. 3) Continue physical and occupational therapy. EXCELLENT WORK!!. 4) Follow up in 4-6 months with our team. documented in this encounter [facility] 07-30-2024 History of Present illness Narrative Images from the original note were not included. Deloris Bae is a 69 y.o. female presents with chief complaint of Suture / Staple Removal (She experienced 2 falls, with the most recent one occurring on 07/12/2024, resulting in 6 luz marina in the back of her head) HPI: History of Present Illness Here today for suture removal. I have reviewed and reconciled the history and medication list with the patient today. HISTORIES: PAST MEDICAL HISTORY: Past Medical History: Diagnosis Date Anxiety Arthritis Fibrocystic breast Hypertension (CMS/HCC) Intestinal malabsorption (CMS/HCC) Major depression (CMS/HCC) Multilevel degenerative disc disease Osteoporosis (CMS/HCC) S/P bariatric surgery Status post total hip replacement, left Stroke (CMS/HCC) 04/2024 SURGICAL HISTORY: Past Surgical History: Procedure Laterality Date APPENDECTOMY 1972 BACK SURGERY 2000 BREAST SURGERY 1980 reduction CARPAL TUNNEL RELEASE CARPAL TUNNEL RELEASE Right 11/22/2022 DR RAMÍREZ CHOLECYSTECTOMY 1982 COLONOSCOPY 2009 COLONOSCOPY 11/30/2018 COLONOSCOPY W/ BIOPSIES EGD 12/24/2023 anastomotic ulcer ESOPHAGOSCOPY / EGD 06/28/2019 FINGER SURGERY 2008 foreign body surgery FINGER SURGERY Left 01/30/2021 Tumbh CMC arthroplasty GASTRIC BYPASS 02/2008 HIP ARTHROPLASTY Right 2015 DR. YEN HYSTERECTOMY 1989 JOINT REPLACEMENT 2005 and 2022 hips LUMBAR FUSION 01/2014 3 vertebrae w/ 4 cages NERVE SURGERY ablation, 11/21 & 12/06/2019 OTHER SURGICAL HISTORY 05/16/2017 L4/L5 Nerve Facet Block OTHER SURGICAL HISTORY 08/19/2017 TVT-O OTHER SURGICAL HISTORY 03/2022 RFA L5, S1-S3 REVISION TOTAL HIP ARTHROPLASTY Left 07/17/2022 SPINE SURGERY 01/2014 TONSILLECTOMY 1972 TOTAL ABDOMINAL HYSTERECTOMY 1989 RSO TOTAL HIP ARTHROPLASTY Right 03/2016 TUBAL LIGATION VAGINA SURGERY ablation VAGINECTOMY partial simple vaginectomy & laser SOCIAL HISTORY: Social History Tobacco Use Smoking status: Former Current packs/day: 0.00 Average packs/day: 1.5 packs/day for 15.0 years (22.5 ttl pk-yrs) Types: Cigarettes Quit date: 10/20/2006 Years since quittin.7 Smokeless tobacco: Never Vaping Use Vaping status: Never Used Substance Use Topics Alcohol use: Not Currently Alcohol/week: 3.0 - 4.0 standard drinks of alcohol Comment: 6+ drinks monthly. Caffine intake: 1-2 cups per day Drug use: Never Depression: Not at risk (04/24/2024) Received from [employer] PHQ-2 Total Score: 0 FAMILY HISTORY: Family History Problem Relation Name Age of Onset Cancer Mother Minoo Ríos Heart disease Mother Minoo Ríos Hypertension Mother Minoo Ríos Lung cancer Father George Ríos Cancer Father George Ríos Cancer Brother Tamia Ríos Cancer Brother Wolfgang Ríos MEDICATIONS: Current Outpatient Medications Medication Instructions ALPRAZolam (XANAX) 0.25 mg, Oral, 3 times daily PRN apixaban (ELIQUIS) 5 mg, 2 times daily buPROPion XL (WELLBUTRIN XL) 300 mg, Oral, Every 24 hours Calcium Carbonate-Vit D-Min (CALTRATE 600+D PLUS MINERALS PO) Take by mouth. cholecalciferol (Vitamin D3) 25 MCG (1000 UT) tablet Every 24 hours cyanocobalamin (Vitamin B-12) 500 MCG tablet Every 24 hours denosumab (PROLIA) 60 mg, Subcutaneous, Every 6 months ezetimibe (ZETIA) 10 mg, Oral, Daily Multiple Vitamins-Minerals (PRESERVISION AREDS 2 PO) Every 24 hours omeprazole (PRILOSEC) 40 mg, 2 times daily before meals ALLERGIES: No Known Allergies PHYSICAL EXAM: Visit Vitals Smoking Status Former BP Readings from Last 3 Encounters: 07/26/24 140/82 06/23/24 134/72 04/02/24 148/80 Wt Readings from Last 3 Encounters: 07/26/24 141 lb 8 oz 06/23/24 140 lb 03/11/24 145 lb Physical Exam Skin: General: Skin is warm and dry. Comments: 6 sutures intact posterior head Neurological: Mental Status: She is alert and oriented to person, place, and time. Psychiatric: Mood and Affect: Mood normal. Thought Content: Thought content normal. Results ASSESSMENT AND PLAN: Assessment & Plan 1. Laceration of scalp without foreign body, subsequent encounter 6 sutures removed with staple remover. Pt tolerated well. No signs of infection. Call if problems develop. 2. Visit for suture removal (Primary) Discussed being gentle when washing hair which she did do yesterday. documented in this encounter [facility] 07-26-2024 History of Present illness Narrative Images from the original note were not included. Deloris Bae is a 69 y.o. female presents with chief complaint of 6 Month Follow-up of Chronic Conditions (Review lab drawn 06/23/2024. /S/P acute right MCA stroke, seen for hospital follow-up 06/23/2024/She has had two falls since last seen. She was seen at [facility] ER on 07/12/2024 after falling. Complaints of low back pain. Bruising on left shoulder. [facility] HPI: History of Present Illness The patient presents for a ER follow-up and routine OV. She experienced 2 falls, the first of which resulted in a trip to the emergency room where a CT scan and x-rays were performed, revealing no significant findings other than bruising and soreness. Approximately 2 weeks later, she had another fall that necessitated the placement of 6 luz marina in the back of her head. The luz marina have not yet been removed as it has only been 5 days since their placement. This incident has exacerbated her pre-existing back pain. She continues to receive Prolia injections every 6 months. She is not following with Dr Villarreal and canceled her last appt since she is not on steroids since stroke. She is currently undergoing therapy. She reports no chest pain or shortness of breath. She recently had a consultation with Dr. Beaver and is scheduled for a stress test on 08/12/2024. She has discontinued the use of gabapentin. She has been taking vitamin B12 every other day. MEDICATIONS Current: Prolia Discontinued: Gabapentin I have reviewed and reconciled the history and medication list with the patient today. HISTORIES: PAST MEDICAL HISTORY: Past Medical History: Diagnosis Date Anxiety Arthritis Fibrocystic breast Hypertension (CMS/HCC) Intestinal malabsorption (CMS/HCC) Major depression (CMS/HCC) Multilevel degenerative disc disease Osteoporosis (CMS/HCC) S/P bariatric surgery Status post total hip replacement, left Stroke (CMS/HCC) 04/2024 SURGICAL HISTORY: Past Surgical History: Procedure Laterality Date APPENDECTOMY 1972 BACK SURGERY 2001 BREAST SURGERY 1980 reduction CARPAL TUNNEL RELEASE CARPAL TUNNEL RELEASE Right 11/22/2022 DR RAMÍREZ CHOLECYSTECTOMY 1982 COLONOSCOPY 2009 COLONOSCOPY 11/30/2018 COLONOSCOPY W/ BIOPSIES EGD 12/24/2023 anastomotic ulcer ESOPHAGOSCOPY / EGD 06/28/2019 FINGER SURGERY 2008 foreign body surgery FINGER SURGERY Left 01/30/2021 [place] arthroplasty GASTRIC BYPASS 02/2008 HIP [address]THR[address]Y Right [address]. YEN HYSTERECTOMY 1989 JOINT REPLACEMENT 2005 and 2022 hips LUMBAR FUSION 01/2014 3 vertebrae w/ 4 cages NERVE SURGERY ablation, 11/21 & 12/06/2019 OTHER SURGICAL HISTORY 05/16/2017 L4/L5 Nerve Facet Block OTHER SURGICAL HISTORY 08/19/2017 TVT-O OTHER SURGICAL HISTORY 03/2022 RFA L5, S1-S3 REVISION TOTAL HIP ARTHROPLASTY Left 07/17/2022 SPINE SURGERY 01/2014 TONSILLECTOMY 1972 TOTAL ABDOMINAL HYSTERECTOMY 1989 RSO TOTAL HIP ARTHROPLASTY Right 03/2016 TUBAL LIGATION VAGINA SURGERY ablation VAGINECTOMY partial simple vaginectomy & laser SOCIAL HISTORY: Social History Tobacco Use Smoking status: Former Current packs/day: 0.00 Average packs/day: 1.5 packs/day for 15.0 years (22.5 ttl pk-yrs) Types: Cigarettes Quit date: 10/20/2006 Years since quittin.7 Smokeless tobacco: Never Vaping Use Vaping status: Never Used Substance Use Topics Alcohol use: Not Currently Alcohol/week: 3.0 - 4.0 standard drinks of alcohol Comment: 6+ drinks monthly. Caffine intake: 1-2 cups per day Drug use: Never Depression: Not at risk (04/24/2024) Received from [employer] PHQ-2 Total Score: 0 FAMILY HISTORY: Family History Problem Relation Name Age of Onset Cancer Mother Minoo Ríos Heart disease Mother Minoo Ríos Hypertension Mother Minoo Ríos Lung cancer Father George Ríos Cancer Father George Ríos Cancer Brother Tamia Ríos Cancer Brothsaima Ríos MEDICATIONS: Current Outpatient Medications Medication Instructions ALPRAZolam (XANAX) 0.25 mg, Oral, 3 times daily PRN apixaban (ELIQUIS) 5 mg, 2 times daily buPROPion XL (WELLBUTRIN XL) 300 mg, Oral, Every 24 hours Calcium Carbonate-Vit D-Min (CALTRATE 600+D PLUS MINERALS PO) Take by mouth. cholecalciferol (Vitamin D3) 25 MCG (1000 UT) tablet Every 24 hours cyanocobalamin (Vitamin B-12) 500 MCG tablet Every 24 hours denosumab (PROLIA) 60 mg, Subcutaneous, Every 6 months ezetimibe (ZETIA) 10 mg, Oral, Daily gabapentin (Neurontin) 300 MG capsule 1 capsule, Every 24 hours Multiple Vitamins-Minerals (PRESERVISION AREDS 2 PO) Every 24 hours omeprazole (PRILOSEC) 40 mg, 2 times daily before meals ALLERGIES: No Known Allergies PHYSICAL EXAM: Visit Vitals BP 140/82 (BP Location: Left arm, Patient Position: Sitting) Pulse 81 Ht 5' 4 Wt 141 lb 8 oz SpO2 99% BMI 24.29 kg/m Smoking Status Former BSA 1.7 m BP Readings from Last 3 Encounters: 07/26/24 140/82 06/23/24 134/72 04/02/24 148/80 Wt Readings from Last 3 Encounters: 07/26/24 141 lb 8 oz 06/23/24 140 lb 03/11/24 145 lb Physical Exam HENT: Right Ear: Tympanic membrane and external ear normal. Left Ear: Tympanic membrane and external ear normal. Mouth/Throat: Mouth: Mucous membranes are moist. Neck: Thyroid: No thyroid mass or thyromegaly. Vascular: No carotid bruit. Cardiovascular: Rate and Rhythm: Normal rate and regular rhythm. Heart sounds: No murmur heard. No friction rub. No gallop. Pulmonary: Effort: Pulmonary effort is normal. Breath sounds: Normal breath sounds. Abdominal: General: Bowel sounds are normal. Palpations: Abdomen is soft. Tenderness: There is no abdominal tenderness. Musculoskeletal: Right lower leg: No edema. Left lower leg: No edema. Lymphadenopathy: Cervical: No cervical adenopathy. Skin: General: Skin is warm and dry. Comments: Luz Marina intact to posterior scalp. No signs of infection or drainage. Neurological: Mental Status: She is alert and oriented to person, place, and time. Psychiatric: Thought Content: Thought content normal. Results Laboratory Studies B12 level is 1900. Vitamin D level is 49. B6 level is normal. Cholesterol is 176, LDL is 94, triglycerides are 133 and HDL is 59. Blood glucose level is normal. Kidney function is normal. Sodium level was high at one point. Calcium and liver function are normal. CBC shows no anemia or blood loss. Imaging CT scan showed no new changes. X-ray of the back showed no abnormalities. ASSESSMENT AND PLAN: Assessment & Plan 1. Pure hypercholesterolemia (CMS/HCC) (Primary) Labs were reviewed and discussed today. Questions and concerns were addressed and a copy of the labs was provided. The numbers look good. Continue current medication, eat a healthy diet, and exercise regularly. 2. History of CVA (cerebrovascular accident) Stable. Continue aggressive risk factor reduction. 3. Moderate major depression (CMS/HCC) Doing well. Continue current regimen. 4. Generalized anxiety disorder (CMS/HCC) Doing well. Continue current regimen. 5. Polymyalgia rheumatica (CMS/HCC) She canceled last follow up with Rheumatology since she can no longer take steroids since her last stroke. 6. Primary osteoarthritis involving multiple joints She is doing well. Continue therapy and tylenol if needed. 7. Age-related osteoporosis without current pathological fracture (CMS/HCC) Reviewed last DEXA. She is on Prolia. Doing well. Continue current regimen. 8. History of bariatric surgery Reviewed labs. Her B12 levels are elevated at 1900. She is advised to continue her B12 supplementation regimen, taking it every other day or 3 days a week. - Basic metabolic panel; Future - Basic metabolic panel 9. Medication management - Basic metabolic panel; Future - Basic metabolic panel She experienced 2 falls, with the most recent one occurring on 07/12/2024, resulting in 6 luz marina in the back of her head. The luz marina have not been documented in the ER report. An appointment will be set up for staple removal. A request for an updated ER report will be made to ensure proper documentation. Her vitamin D level is good at 49, and B6 levels are within the normal range. Cholesterol levels are all within normal range with total cholesterol at 176, LDL at 94, triglycerides at 133, and HDL at 59. Blood sugar and kidney function are good. Calcium and liver function are good. CBC shows no anemia or blood loss. Bone density is stable. A stress test is scheduled for 03/12/2025. Dr. France was not in the office at time of visit, but was available via real-time, audio/visual technology to supervise patient care. I am following Dr. France's plan of care for the above issues. documented in this encounter [facility] 07-22-2024 Radiology Diagnostic study note [facility] Main [place] [id number] CT Scan Report Signed Patient: Deloris Bae MR#: [id number] : 1955 Acct:[id number] Age/Sex: 69 / F ADM Date: 5 Loc: ER Room: Type: [facility] ER Attending Dr: Copies to: Lenard Chatterjee APRN~ Ordering Provider: Lenard Chatterjee APRN Date of Service: 07/22/24 CT/CT cervical spine wo con: fall CT Cervical Spine withoutcontrast TECHNIQUE: Axial imaging with 2-D and 3-D reconstruction. The CT exam was performed using one or more the following dose reduction techniques: Automated exposure control, adjustment of the MA and/or Kv according to patient size, or use of the iterative reconstruction technique. COMPARISON: None HISTORY: Fell backwards. Head injury. POST SURGERY CHANGES: None BONY ALIGNMENT: Straightening with mild degenerative listhesis BONY SPINAL CANAL: Patent central bony canal FRACTURE: None BONY LESIONS: None SOFT TISSUES: Unremarkable DEGENERATIVE CHANGES: Considerable multilevel spondylosis and facet degeneration. LUNG APICES: Unremarkable ADDITIONAL FINDINGS: Atherosclerosis. CT/CT cervical spine wo con IMPRESSION: No acute process Impression dictated by: Samir Tucker M.D.07/22/2024 3:33 PM Dictation Location: [place] [address] Transcribed By: [facility] 07/22/24 1533 Dictated By: Samir Tucker DO 07/22/24 1531 Signed By: 07/22/24 1533 [facility] 07-22-2024 Radiology Diagnostic study note [facility] Main [address] [address] [address] Scan Report Signed Patient: Deloris Bae MR#: [id number] : 1955 Acct:[id number] Age/Sex: 69 / F ADM Date: 5 Loc: ER Room: Type: [facility] ER Attending Dr: Copies to: Lenard Chatterjee APRN~ Ordering Provider: Lenard Chatterjee APRN Date of Service: 07/22/24 CT/CT head/brain wo con: fall backward, anticoag Unenhanced head CT TECHNIQUE: Contiguous axial imaging of the head. The CT exam was performed usingone or more the following dose reduction techniques: Automated exposure control,adjustment of the MA and/or Kv according to patient size, or use of the iterative reconstruction technique. COMPARISON: 07/12/2024 HISTORY: Fell backwards. Head injury. Patient on blood thinners. VENTRICLES: Within normal limits ATROPHY: Diffuse atrophy BRAIN PARENCHYMA: Decreased density of the white matter is most consistent withchronic small vessel disease. Redemonstration of remote left posterior infarction. HEMORRHAGE: None HERNIATION: No mass effect or herniation INFARCTION: No recent vascular distribution infarction is seen. EXTRA-AXIAL FLUID COLLECTIONS None MIDBRAIN: Unremarkable CORNELIA: Unremarkable MEDULLA: Unremarkable SINUSES: Unremarkable ORBITS: Grossly unremarkable MASTOIDS: Unremarkable BONY STRUCTURES Intact ADDITIONAL FINDINGS: CT/CT head/brain wo con IMPRESSION: No acute findings. Impression dictated by: Samir Tucker M.D.07/22/2024 3:30 PM Dictation Location: [place] [address] Transcribed By: [facility] 07/22/24 1530 Dictated By: Samir Tucker DO 07/22/24 1526 Signed By: 07/22/24 1530 [facility] 07-22-2024 History of Present illness Narrative Cardiology Consultation- New Consult Reason for referral: Tachycardia HPI: Deloris Bae is a 69 y.o. female who was referred to me by neurology from [place] for evaluation of abnormal Holter monitor from June 02, 2024 which read brief runs of narrow complex tachycardia suggestive of atrial tachycardia or SVT longest run was 16 beats. There was no atrial fibrillation and there were no symptoms and sinus rhythm mechanism dominated. In April 2023 the patient had 1 episode of TIA which resolved and in April 2024 she had a full stroke requiring thrombolysis in [place]. She recovered from the stroke except for left lower extremity weakness for which she uses a brace for ambulation. She has had previous tobacco abuse that ended more than 10 years ago. She is retired and has no diabetes, no COPD and no hypertension. She has no family history of cardiovascular disease or stroke. Her speech is intact her vision is normal. Her ambulation is slightly limited because of the stroke. EKG revealed sinus rhythm with poor R progression in the precordial leads. She has had no previous evaluation for ischemic heart disease. Her echocardiogram April 2024 in [place] revealed normal ejection fraction and no valve disease. Her examination today was unremarkable and review of system was unremarkable. Assessment/recommendations: 1-narrow complex tachycardia up to 16 beats picked up on a Holter monitor May 2024, no atrial fibrillation and no symptoms were noted. This does not require further cardiac investigations at this time but observation. Will assess for underlying ischemic heart disease with Lexiscan Cardiolite stress test. 2-history of stroke treated with thrombolysis at [facility] in April 2024 with mild residual deficit involving left lower extremity. Since that time patient has been on Eliquis. I did not find any records that demonstrated cardiac source of embolization or atrial fibrillation. I will not change the medical therapy for now. If the patient has any history of atrial fibrillation it will be covered with the Eliquis. 3-hyperlipidemia intolerant to statin due to severe myalgias presently on ezetimibe. 4-history of polymyalgia rheumatica, currently quiescent on no medical therapy 5-abnormal EKG with poor R progression in the precordial leads. 6-high risk medication with Eliquis, no active bleeding, CBC will be followed The patient will be updated on the results of the stress test and she will come back to see me in 6 months. Past Medical History: She has no past medical history on file. Surgical History: She has a past surgical history that includes Hysterectomy; Laminectomy; Total hip arthroplasty (Bilateral); Tonsillectomy; Tubal ligation; Colonoscopy; Gastric bypass; and Carpal tunnel release (Right). Family History: Family History Problem Relation Name Age of Onset Heart disease Mother Lung cancer Father Esophageal cancer Brother Liver cancer Brother Social History: Social History Tobacco Use Smoking status: Former Current packs/day: 0.00 Types: Cigarettes Quit date: 2006 Years since quittin.1 Smokeless tobacco: Never Substance Use Topics Alcohol use: Not Currently Allergies: Patient has no known allergies. Current Medications: Current Outpatient Medications: ALPRAZolam (Xanax) 0.25 mg tablet, Take 1 tablet (0.25 mg) by mouth 3 times a day as needed., Disp: , Rfl: apixaban (Eliquis) 5 mg tablet, Take 1 tablet (5 mg) by mouth twice a day., Disp: , Rfl: ascorbate calcium-bioflavonoid (Colleen-C with Bioflavonoids) 1,000-200 mg tablet, Take 1 tablet by mouth early in the morning.., Disp: , Rfl: calcium carbonate/vitamin D3 (CALTRATE WITH VITAMIN D3 ORAL), Take 1 tablet by mouth once daily., Disp: , Rfl: cholecalciferol (Vitamin D3) 50 MCG (2000 UT) tablet, Take 1 tablet (50 mcg) by mouth once daily., Disp: , Rfl: cyanocobalamin (Vitamin B-12) 500 mcg tablet, Take 1 tablet (500 mcg) by mouth every other day., Disp: , Rfl: denosumab (Prolia) 60 mg/mL syringe, Inject 1 mL (60 mg total) under the skin every 6 months., Disp: , Rfl: ezetimibe (Zetia) 10 mg tablet, Take 1 tablet (10 mg) by mouth once daily., Disp: , Rfl: omeprazole (PriLOSEC) [address] capsule, Take 1 capsule (40 mg) by mouth 2 times a day., Disp: , Rfl: vit 91/iron/folic/dha ( + DHA ORAL), Take 1 tablet by mouth early in the morning.., Disp: , Rfl: vit A/vit C/vit E/zinc/copper (PRESERVISION AREDS ORAL), Take 1 tablet by mouth once daily., Disp: , Rfl: Vitals: Vitals: 07/22/24 0938 07/22/24 0942 BP: 120/80 122/80 BP Location: Left arm Right arm Patient Position: Sitting Sitting Pulse: 77 Weight: 63.6 kg (140 lb 3.2 oz) Height: 1.626 m (5' 4 ) EKG done in office today Review of Systems All other systems reviewed and are negative. Objective Physical Exam Constitutional: Appearance: Normal appearance. HENT: Nose: Nose normal. Neck: Vascular: No carotid bruit. Cardiovascular: Rate and Rhythm: Normal rate. Pulses: Normal pulses. Heart sounds: Normal heart sounds. Pulmonary: Effort: Pulmonary effort is normal. Abdominal: General: Bowel sounds are normal. Palpations: Abdomen is soft. Musculoskeletal: General: Normal range of motion. Cervical back: Normal range of motion. Right lower leg: No edema. Left lower leg: No edema. Skin: General: Skin is warm and dry. Neurological: General: No focal deficit present. Mental Status: She is alert. Psychiatric: Mood and Affect: Mood normal. Behavior: Behavior normal. Thought Content: Thought content normal. Judgment: Judgment normal. Assessment and Plan: 1. Abnormal EKG Nuclear Stress Test ECG 12 Lead 2. Cerebrovascular accident (CVA), unspecified mechanism (Multi) Nuclear Stress Test Follow Up In Cardiology ECG 12 Lead 3. History of TIA (transient ischemic attack) Nuclear Stress Test 4. Mixed hyperlipidemia Nuclear Stress Test 5. Polymyalgia rheumatica (Multi) 6. BMI 24.0-24.9, adult Nuclear Stress Test 7. Former smoker Scribe Attestation By signing my name below, I Sun ChristiansenRin WESLEY , Scribe attest that this documentation has been prepared under the direction and in the presence of Kimmie Beaver MD. Provider Attestation - Scribe documentation All medical record entries made by the Scribe were at my direction and personally dictated by me. I have reviewed the chart and agree that the record accurately reflects my personal performance of the history, physical exam, discussion and plan. documented in this encounter [facility] Work Phone: 07-22-2024 Instructions Barak Umana MA - 07/22/2024 9:40 AM EST Please bring all medicines, vitamins, and herbal supplements with you when you come to the office. Prescriptions will not be filled unless you are compliant with your follow up appointments or have a follow up appointment scheduled as per instruction of your physician. Refills should be requested at the time of your visit. documented in this encounter [facility] Work Phone: 07-22-2024 Hospital Discharge instructions Additional Instructions Luz Marina out in 7 to 10 days [facility] Work Phone: 07-12-2024 Radiology Diagnostic study note [facility] Main [place] [address] [place] [address] CT Scan Report Signed Patient: Deloris Bae MR#: [id number] : 1955 Acct:[id number] Age/Sex: 69 / F ADM Date: 5 Loc: ER Room: Type: [facility] ER Attending Dr: Copies to: Gomez Ceron DO TEMP, PROVIDER~ Ordering Provider: Gomez Ceron DO Date of Service: 07/12/24 CT/CT cervical spine wo con: fall ([id number]) CT/CT head/brain wo con: fall Unenhanced head CT TECHNIQUE: Contiguous axial imaging of the head. The CT exam was performed usingone or more the following dose reduction techniques: Automated exposure control,adjustment of the MA and/or Kv according to patient size, or use of the iterative reconstruction technique. COMPARISON: None HISTORY: Head injury. Patient on blood thinners. VENTRICLES: Within normal limits ATROPHY: Diffuse atrophy BRAIN PARENCHYMA: Decreased density of the white matter is most consistent withchronic small vessel disease. Remote left posterior infarction. HEMORRHAGE: None HERNIATION: No mass effect or herniation INFARCTION: No recent vascular distribution infarction is seen. EXTRA-AXIAL FLUID COLLECTIONS None MIDBRAIN: Unremarkable CORNELIA: Unremarkable MEDULLA: Unremarkable SINUSES: Unremarkable ORBITS: Grossly unremarkable MASTOIDS: Unremarkable BONY STRUCTURES Intact ADDITIONAL FINDINGS: CT/CT head/brain wo con IMPRESSION: No acute findings. CT Cervical Spine withoutcontrast TECHNIQUE: Axial imaging with 2-D and 3-D reconstruction. The CT exam was performed using one or more the following dose reduction techniques: Automated exposure control, adjustment of the MA and/or Kv according to patient size, or use of the iterative reconstruction technique. COMPARISON: None HISTORY: As above POST SURGERY CHANGES: None BONY ALIGNMENT: Straightening with mild degenerative listhesis BONY SPINAL CANAL: Patent central bony canal FRACTURE: None BONY LESIONS: None SOFT TISSUES: Unremarkable DEGENERATIVE CHANGES: Extensive C4-T1 spondylosis. Multilevel facet degeneration. LUNG APICES: Unremarkable ADDITIONAL FINDINGS: IMPRESSION: No acute process Impression dictated by: Samir Tucker M.D.07/12/2024 4:39 PM Dictation Location: [place] [address] Transcribed By: [facility] 07/12/24 1639 Dictated By: Samir Tucker DO 07/12/24 1630 Signed By: 07/12/24 1639 [facility] 06-28-2024 Miscellaneous Notes Received EM report from [facility] and uploaded to Media. Please advise. Images from the original note were not included. Results: I think deloris should follow up with a patient liaison. Looks like we started her on eliquis for concern for embolic source. 16 beats of atach. Can you reach out and see who she would like to see? Looks like she is in [facility] Called patient to notify what was noted below; patient states she does have a patient liaison in mind, and his name is Dr. Kimmie Beaver at [facility]. Pended the referral. Please advise Referral signed. Please send referral along with event monitor report in media and discharge summary. Thanks! Faxed the referral with EM result. documented in this encounter [facility] 06-28-2024 Telephone encounter Note Received EM report from [facility] and uploaded to Media. Please advise. [facility] Telephone encounter Note Images from the original note were not included. Results: [facility] [employer] [facility] 06-28-2024 Telephone encounter Note I think deloris should follow up with a patient liaison. Looks like we started her on eliquis for concern for embolic source. 16 beats of atach. Can you reach out and see who she would like to see? Looks like she is in [facility] Work [facility]: 06-28-2024 Telephone encounter Note Called patient to notify what was noted below; patient states she does have a patient liaison in mind, and his name is Dr. Kimmie Beaver at [facility]. Pended the referral. Please advise [facility] 06-28-2024 Telephone encounter Note Referral signed. Please send referral along with event monitor report in media and discharge summary. Thanks! [facility] 06-28-2024 Telephone encounter Note Faxed the referral with EM result. [facility] History of Present illness Narrative Images from the original note were not included. Deloris Bae is a 69 y.o. 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 She is currently attending therapy at [facility]. Neurology appointment in July with Gonzalo Nicole MD) HPI: Acute Neurological Problem The patient's primary symptoms include focal weakness. This is a new problem. The current episode started more than 1 month ago. The neurological problem developed suddenly. The problem has been rapidly improving since onset. There was left-sided, lower extremity and upper extremity focality noted. The treatment provided significant relief. History of Present Illness The patient presents for evaluation of stroke. She is accompanied by her . She experienced an episode of garbled speech while watching television, prompting her to suspect a stroke. She was subsequently transported to [facility] where she was administered a TNK/TPA injection. She was then transferred to [facility] for treatment and then Rehab at [facility]. She has been attending outpatient therapy twice weekly, with plans to increase to three times weekly next week. She reports no headaches, dizziness, or vision problems. Her swallowing function is normal, and she has been able to consume all types of food, including chips. She has lost 5 pounds since discontinuing prednisone, which she attributes to a reduction in bloating and water retention. Her appetite remains good. She has a scheduled appointment with neurology in early July 2023. MEDICATIONS Discontinued: prednisone I have reviewed and reconciled the history and medication list with the patient today. Flowsheet Row Patient Outreach from 06/03/2024 in [facility] with Jessica Hurley LPN Hospital Information ED, Hospital or Half-Way Facility Discharge? Half-Way Facility [[facility]] Patient has been contacted within two business days of discharge Yes Have two attempts been made to contact the patient within two business days of being discharged? Yes Discharge Date 06/02/24 Discharged To: Home Setting Engagement Admission Date 04/29/24 Medications Discharge medications reviewed and reconciled from hospital? Yes Is the patient having any side effects they believe may be caused by any medication additions or changes? No Does the patient have all medications ordered at discharge? Yes Is the patient taking all medications as directed (includes completed medication regime)? Yes Medication Comments SHE WENT BACK TO TAKING THE GABAPENTIN 300 MG AT NIGHT INSTEAD OF THE 100 MG Appointments Does the patient have a primary care provider? Yes Nursing Interventions Verified appointment date/time/provider Does the patient have any upcoming specialty appointments? Yes Self Management Does patient have home health no [SHE WILL BE DOING OUT PT AND OT AT [facility] APPT SET FOR 06/04 FOR OT AND 06/18 FOR PT] Patient Teaching Does the patient have access to their discharge instructions? Yes Nursing Interventions Reviewed instructions with patient What is the patient's perception of their health status since discharge? Improving Patient/Caregiver Education Comments SHE IS WEARING THE LEFT FOOT BRACE SHE WAS FITTED FOR FROM Personally TO HELP WITH HER WHEN SHE IS WALKING SO THAT LEFT FOOT DOES NOT DRAG Wrap Up HISTORIES: PAST MEDICAL HISTORY: Past Medical History: Diagnosis Date Anxiety Arthritis Fibrocystic breast Hypertension (CMS/HCC) Intestinal malabsorption (CMS/HCC) Major depression (CMS/HCC) Multilevel degenerative disc disease Osteoporosis (CMS/HCC) S/P bariatric surgery Status post total hip replacement, left Stroke (CMS/HCC) 04/2024 SURGICAL HISTORY: Past Surgical History: Procedure Laterality Date APPENDECTOMY 1972 BACK SURGERY 2000 BREAST SURGERY 1980 reduction CARPAL TUNNEL RELEASE CARPAL TUNNEL RELEASE Right 11/22/2022 DR RAMÍREZ CHOLECYSTECTOMY 1982 COLONOSCOPY 2009 COLONOSCOPY 11/30/2018 COLONOSCOPY W/ BIOPSIES EGD 12/24/2023 anastomotic ulcer ESOPHAGOSCOPY / EGD 06/28/2019 FINGER SURGERY 2008 foreign body surgery FINGER SURGERY Left 01/30/2021 [facility] arthroplasty GASTRIC BYPASS 02/2008 [address] Right [address]. YEN HYSTERECTOMY 1989 JOINT REPLACEMENT 2005 and 2022 hips LUMBAR FUSION 01/2014 3 vertebrae w/ 4 cages NERVE SURGERY ablation, 11/21 & 12/06/2019 OTHER SURGICAL HISTORY 05/16/2017 L4/L5 Nerve Facet Block OTHER SURGICAL HISTORY 08/19/2017 TVT-O OTHER SURGICAL HISTORY 03/2022 RFA L5, S1-S3 REVISION TOTAL HIP ARTHROPLASTY Left 07/17/2022 SPINE SURGERY 01/2014 TONSILLECTOMY 1972 TOTAL ABDOMINAL HYSTERECTOMY 1988 RSO TOTAL HIP ARTHROPLASTY Right 03/2016 TUBAL LIGATION VAGINA SURGERY ablation VAGINECTOMY partial simple vaginectomy & laser SOCIAL HISTORY: Social History Tobacco Use Smoking status: Former Current packs/day: 0.00 Average packs/day: 1.5 packs/day for 15.0 years (22.5 ttl pk-yrs) Types: Cigarettes Quit date: 10/20/2006 Years since quittin.6 Smokeless tobacco: Never Vaping Use Vaping status: Never Used Substance Use Topics Alcohol use: Not Currently Alcohol/week: 3.0 - 4.0 standard drinks of alcohol Comment: 6+ drinks monthly. Caffine intake: 1-2 cups per day Drug use: Never Depression: Not at risk (04/24/2024) Received from [employer] PHQ-2 Total Score: 0 FAMILY HISTORY: Family History Problem Relation Name Age of Onset Cancer Mother Minoo Ríos Heart disease Mother Minoo Ríos Hypertension Mother Minoo Ríos Lung cancer Father George Ríos Cancer Father George Ríos Cancer Brother Tamia Ríos Cancer Brother Wolfgang Roís MEDICATIONS: Current Outpatient Medications Medication Instructions acetaminophen (TYLENOL) 500 mg, Every 6 hours PRN ALPRAZolam (XANAX) 0.25 mg, Oral, 3 times daily PRN apixaban (ELIQUIS) 5 mg, 2 times daily ascorbic acid (VITAMIN C) 500 mg, Daily ASPIRIN 81 PO 1 tablet, Daily in the morning buPROPion XL (WELLBUTRIN XL) 300 mg, Oral, Every 24 hours Calcium Carbonate-Vit D-Min (CALTRATE 600+D PLUS MINERALS PO) Take by mouth. cholecalciferol (Vitamin D3) 25 MCG (1000 UT) tablet Every 24 hours cyanocobalamin (Vitamin B-12) 500 MCG tablet Every 24 hours denosumab (PROLIA) 60 mg, Subcutaneous, Every 6 months ezetimibe (ZETIA) 10 mg, Oral, Daily gabapentin (Neurontin) 300 MG capsule 1 capsule, Every 24 hours Multiple Vitamins-Minerals (PRESERVISION AREDS 2 PO) Every 24 hours omeprazole (PRILOSEC) 40 mg, 2 times daily before meals ALLERGIES: No Known Allergies PHYSICAL EXAM: Visit Vitals BP 134/72 (BP Location: Right arm, Patient Position: Sitting) Pulse 73 Ht 5' 4 Wt 140 lb SpO2 98% BMI 24.03 kg/m Smoking Status Former BSA 1.69 m BP Readings from Last 3 Encounters: 06/23/24 134/72 04/02/24 148/80 03/11/24 130/80 Wt Readings from Last 3 Encounters: 06/23/24 140 lb 03/11/24 145 lb 08/21/24 142 lb Physical Exam HENT: Right Ear: Tympanic membrane and external ear normal. Left Ear: Tympanic membrane and external ear normal. Mouth/Throat: Mouth: Mucous membranes are moist. Eyes: Extraocular Movements: Extraocular movements intact. Pupils: Pupils are equal, round, and reactive to light. Cardiovascular: Rate and Rhythm: Normal rate and regular rhythm. Heart sounds: No murmur heard. No friction rub. No gallop. Pulmonary: Effort: Pulmonary effort is normal. Breath sounds: Normal breath sounds. Abdominal: General: Bowel sounds are normal. Palpations: Abdomen is soft. Tenderness: There is no abdominal tenderness. Musculoskeletal: Right lower leg: No edema. Left lower leg: No edema. Skin: General: Skin is warm and dry. Neurological: Mental Status: She is alert and oriented to person, place, and time. Motor: Weakness (LUE 3/4 RUE 4/4, LLE 3/4 RLE 4/4) present. Psychiatric: Thought Content: Thought content normal. Results ASSESSMENT AND PLAN: Assessment & Plan 1. Acute right MCA stroke (CMS/HCC) (Primary) She experienced a stroke with a right M2 occlusion, which was successfully treated with medication and recanalization. There was also an occlusion in the M4. She has shown significant improvement, with the ability to walk around the house and perform daily activities. She is currently undergoing outpatient therapy 2 days a week, increasing to 3 days a week after next week. She reports no headaches, dizziness, or vision problems. Swallowing is normal, and she has been taken off swallowing therapy. She will continue with her current therapy regimen. A follow-up appointment with neurology is scheduled for early July 2023. 2. Impaired mobility As above. 3. Major depressive disorder, single episode, moderate (HCC) (CMS/HCC) Stable. Continue current regimen. 4. Dysphagia, unspecified type She denies issues with swallowing. 5. Generalized anxiety disorder (CMS/HCC) Stable. Continue current regimen. 6. Left hemiplegia (CMS/HCC) She is able to grasp hand and lift arm up above head. She reports great improvement in her strength. 7. Neurogenic bladder Stable. Continue to monitor. Long-term use of prednisone. It was noted that prolonged use of prednisone may have contributed to her increased risk of stroke. She has been taken off prednisone and reports feeling good. She has lost 5 pounds, likely due to reduced bloating and water retention after stopping the medication. She is advised to maintain a diet with 30 grams of protein per meal to support her recovery. documented in this encounter [facility] 05-24-2024 Miscellaneous Notes Karyna charge nurse at [facility] [phone] requesting a call back to reschedule patient Rescheduled to 06/10. documented in this encounter [facility] 05-24-2024 Telephone encounter Note Karyna charge nurse at [facility] [phone] requesting a call back to reschedule patient [facility] 05-24-2024 Telephone encounter Note Rescheduled to 06/10. [facility] 05-17-2024 Miscellaneous Notes Images from the original note were not included. Medication refill request Rx: Baclofen 10 mg tablet Sig: One tab three times daily PRN Last fill: 04/29/24 documented in this encounter [facility] 05-17-2024 Telephone encounter Note Images from the original note were not included. Medication refill request Rx: Baclofen 10 mg tablet Sig: One tab three times daily PRN Last fill: 04/29/24 [facility] 04-29-2024 Evaluation note Diagnosis Onset Date Resolution Acute right MCA stroke acute No vember 14th, 2024 5:04pm Anxiety acute April 29, 2024 5:04pm Depression acute April 29, 2024 5:04pm Dysphagia acute April 29, 2024 5:04pm Impaired mobility and activities of daily living acute April 29, 2 024 5:04pm Left hemiplegia acute April 29, 2024 5:04pm Neurogenic bladder resolved Novemb er 2023 5:04pm [facility] Work Phone: [phone] 342-713411-09-2024 Evaluation + Plan noteExtracted from: Title:ED Note Author:Trevor Biswas DO Date:04/24/24 Stroke (I63.9: Cerebral infa rction, unspecified) Orders: tenecteplase, 18 mg = 3.6 mL, Injection, IV Push, Once, Stop date 04/24/24 15:26:00 EST, STAT, Start date 04/24/24 15:26:00 EST, Rapid IV Push over 5 seconds, 04/24/24 15:26:00 EST ABO/Rh ABO/Rh History Check Antibody Screen Bedrest Below the Knee Intermittent Pneumatic Compression Device Blood Bank ID# Cardiac Monitoring CBC w/ Auto Diff Communication Order Communication Order Communication Order Physician to Nursing Communication Order Physician to Nursing Communication Order Physician to Nursing Communication Order Physician to Nursing Communication Order Physician to Nursing Communication Order Physician to Nursing Communication Order Physician to Nursing Comprehensive Metabolic Panel Continuous Pulse Oximetry CT Head or Brain w/o Contrast CTA Head CTA Neck CVA/TIA Inclusion/Exclusion Criteria CVA/TIA Inclusion/Exclusion Criteria Dysphagia Screen ECG 12 Lead Adult eGFR Focused Assessment - Neurological Focused Assessment - Neurological Focused Assessment - Neurological NIH Stroke Scale Notify Provider Vital Signs Obtain consent Oxygen Protocol PT & PTT PTT PTT PTT Rapid Response Form Routine Capillary Glucose POC Saline Lock Insert Stroke Quality Measures Stroke Quality Measures Troponin 0 Hr. UA with Cult Rflx Urinary Catheter Insertion Vital Signs Vital Signs Vital Signs Vital Signs XR Chest Single View Diagnostic Tests Pending * PTT 04/25/24 [facility] 11-04-2024 History of Present illness Narrative* Daniela Hurtado, PT - 04/19/2024 10:30 AM EST Images from the original note were not included. Physical Therapy Physical Therapy Evaluation Visit Patient Name: Deloris Bae Today's Date: 04/19/2024 Reason: bilateral shoulder pain and stiffness (L>R) Visit number: 1 Subjective: Interim History: Patient is 68 yo female who presents with bilateral shoulder pain that began mid February. She expresses difficulty sleeping and states that she has to sleep on her back because sleeping on her bilateral sides is too uncomfortable. She states that the pain came on suddenly however cannot recall a single event that would have caused the pain. She also states that her L shoulder is more painful than her R. The pain is worse in the mornings when she wakes up and then gradually gets better as the day goes on. Patient states that [id number] pain medication has not helped but a heating pack does help alleviate the pain slightly. She does not have a history of shoulder injuries or surgeries. Pain: L shoulder- 8/10 at worst R shoulder- 5/10 at worst Imagin/18 xr bilateral shoulder- Mild degenerative changes of the acromioclavicular joints Prior Level of Function: retired Precautions: polymyalgia rheumatica, hx CVA, osteoporosis Objective: SHOULDER AROM: Flexion- L- 113 degrees R- 133 Abduction- L- 115 degrees R- 169 degrees ER- L- 75 degrees R- 80 degrees IR- L- 90 degrees R- 85 degrees Bilateral hand behind lower back in shoulder IR reproduces pain No pain reproduction hand behind head in shoulder ER PROM: Flexion- L- 120 degrees R- 140 degrees Abduction- L- 120 degrees Strength: Flexion R- 4 (crepitus) L- 4 (crepitus) Abduction R- 4 L- 4 ER R- 4- L- 4- IR R- 4- L- 4- Palpation: R- TTP acromion process L - TTP acromion process Special Test: Speeds (-) Dunne-aby (supraspinatus) (-) Lift off sign (subscap) (-) Neer (supra) (-) Empty can (-) Treatment: Education: HEP education with demonstration, Educated on Eval Findings and POC Manual Therapy: Passive ROM, Joint mobilization, Soft Tissue Mobilization, Myofascial Release, Muscle Energy Technique, Neural Mobilization, Myofascial Cupping, Dry Needling, IASTM, and Scar mobilization Therapeutic Exercise: Strength, Endurance, Flexibility, ROM, HEP, Neural Mobilization, Power, and Core Stability Therapeutic Activity: Exercises to improve dynamic activities, functional tasks, functional mobility to return to prior activity level Gait Training: as needed Aquatic Therapy: as needed Neuromuscular re-education: Balance Training, Muscle Facilitation, Dynamic Stability, Core Stabilization, and Blood Flow Restriction Training (BFRT) Modalities: Heat, Ice, Electrical Stimulation, Ultrasound, Cervical Mechanical Traction, Lumbar Mechanical Traction, Iontophoresis, and Fluidotherapy Today: IE; x13 minutes therex for shoulder ROM; x10 minutes MHP to bilateral shoulder and IFC to L shoulder for pain relief (in sitting), post session Assessment: Outcome Measure: QuickDASH- 40.9% Goal 1: Patient will get </= 10% on QuickDash to demonstrate increased shoulder functioning in 4weeks. Goal 2: Patient will get increase bilateral shoulder flexion and abduction to >/= 170 degrees in4 weeks. Goal 3: Patient will increase shoulder strength to 4+/5 in 4 weeks. Goal 4: Patient will demonstrate independence and compliance with HEP in 4 weeks. Pt will benefit from skilled PT to address the above impairments for 1-2x/week for 4 weeks. I hereby deem this POC medically necessary. Please sign below. Date: documented in [facility] encounterUniversity [facility] [id number] Telephone encounter Note* Telephone Encounter - Wesley Thompson MA - 04/15/2024 1:44 PM EDT Patient called requesting a refill of alprazolam to be sent to [facility] in [place] [id number] Miscellaneous Notes* Telephone Encounter - Wesley Thompson MA - 04/15/2024 1:44 PM EDT Patient called requesting a refill of alprazolam to be sent to [facility] in [place] documented in this encounterUniversity of [facility] [id number] History of Present illness Narrative* Marilou Medina, CONCRETE POURER - 04/02/2024 1:00 PM EDT Images from the original note were not included. Subjective Patient ID: Deloris Bae (: 1955) is a 68 y.o. female who presents for Shoulder Pain. History of Present Illness The patient presents for evaluation of bilateral shoulder pain. She has been experiencing this pain for the past month, which is a new symptom for her. The pain isso severe that she is unable to lie on her sides or lift her arms beyond a certain point. Occasionally, she experiences shooting pain down to her elbow, which prevents her from straightening it. She describes the pain as sharp and notes that it is present even when she is sitting with her arms at her sides. Her sleep is affected as she can only lie on her back. She has a history of Polymyalgia Rheumatica (PMR) and is currently on a daily regimen of three 1 mgprednisone tablets. She is under the care of a credit office manager, whom she sees every 6 to 8 weeks, with the next appointment scheduled for April 2024. She also has an upcoming lab test. Despite these symptoms, she reports no neck pain, numbness, tingling in the hands, or weakness. Shehas not undergone any shoulder surgeries and has not experienced any recent injuries or unusual lifting activities. Due to her back condition, she avoids heavy lifting. She is currently receiving pain management from Dr. Enriquez. Current Outpatient Medications Medication Instructions ALPRAZolam (XANAX) 0.25 mg, Oral, 3 times daily PRN Bioflavonoid Products (COLLEEN C PO) Orally Biotin Maximum Strength 66832 MCG tablet 1 tablet, Every morning buPROPion XL (WELLBUTRIN XL) 300 mg, Oral, Every 24 hours Calcium Carbonate-Vit D-Min (CALTRATE 600+D PLUS MINERALS PO) Take by mouth. cholecalciferol (Vitamin D3) 25 MCG (1000 UT) tablet Every 24 hours [facility] Aspirin Low Dose 81 mg, Oral, Every morning cyanocobalamin (Vitamin B-12) 500 MCG tablet Every 24 hours cyclobenzaprine (FLEXERIL) 10 mg, Oral, 3 times daily denosumab (PROLIA) 60 mg, Subcutaneous, Every 6 months ezetimibe (ZETIA) 10 mg, Oral, Daily gabapentin (Neurontin) 300 MG capsule 1 capsule, Every 24 hours Multiple Vitamins-Minerals (PRESERVISION AREDS 2 PO) Every 24 hours omeprazole (PRILOSEC) 40 mg, 2 times daily before meals predniSONE (Deltasone) 1 MG tablet 2 tablets, Daily predniSONE (Deltasone) 20 MG tablet Take two tablets once a day for 5 days No Known Allergies Patient Active Problem List Diagnosis Age-related osteoporosis without current pathological fracture (CMS/HCC) Generalized anxiety disorder (CMS/HCC) Moderate major depression (CMS/HCC) Multilevel degenerative disc disease Polymyalgia rheumatica (CMS/HCC) History of bariatric surgery Pure hypercholesterolemia (CMS/HCC) Primary osteoarthritis involving multiple joints History of CVA (cerebrovascular accident) Other low back pain Marginal ulcer 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 Musculoskeletal: Bilateral shoulder pain Neurological: Negative for dizziness, weakness, light-headedness, numbness and headaches. Objective Vital signs: BP 148/80 Pulse 78 SpO2 97% Physical Exam Constitutional: Comments: Appears uncomfortable due to pain HENT: Head: Normocephalic. Mouth/Throat: Mouth: Mucous membranes are moist. Eyes: Pupils: Pupils are equal, round, and reactive to light. Musculoskeletal: Right shoulder: Tenderness present. Decreased range of motion. Left shoulder: Tenderness present. Decreased range of motion. Arms: Comments: Bilateral shoulder pain with palpation, decrease ROM due to pain. No weakness noted. FullROM of neck. Skin: General: Skin is warm and dry. Neurological: Mental Status: She is alert and oriented to person, place, and time. Psychiatric: Mood and Affect: Mood normal. Assessment/Plan Assessment & Plan 1. Bilateral shoulder pain. X-rays from 2021 revealed osteophytes in both shoulders without bony erosions. Updated x-rays of both shoulders will be ordered today for comparison with the 2021 results. Flexeril 10 mg, to be takenthree times a day as needed, will be prescribed to help relieve muscle spasms. Additionally, a course of prednisone 20 mg, two tablets once a day for 5 days, will be initiated starting tomorrow morning to address potential inflammation. A consultation with Dr. France will be arranged, and she will becontacted on Friday morning. If there are sudden changes such as loss of strength or weakness over the weekend, she is advised to seek immediate medical attention at the ER. Patient is in a pain contract with Dr. Enriquez. Problem List Items Addressed This Visit Polymyalgia rheumatica (CMS/HCC) Other Visit Diagnoses Acute pain of right shoulder - Primary Relevant Medications predniSONE (Deltasone) 20 MG tablet cyclobenzaprine (Flexeril) 10 MG tablet Acute pain of left shoulder Relevant Medications predniSONE (Deltasone) 20 MG tablet cyclobenzaprine (Flexeril) 10 MG tablet Spasm of muscle of lower back Relevant Medications cyclobenzaprine (Flexeril) 10 MG tablet Health Maintenance Topic Date Due Mammogram 02/19/2023 Influenza Vaccine (1) 02/15/2024 Medicare Annual Wellness (AWV) 01/18/2025 Colorectal Cancer Screening 11/30/2028 Pneumococcal Vaccine: 65+ Years Completed Immunization History Administered Date(s) Administered Influenza, High Dose Seasonal, Preservative Free 03/20/2021 Influenza, Seasonal, Quadrivalent, Adjuvanted 04/07/2023 Influenza, Split (incl. purified surface antigen) 04/12/2016 Influenza, injectable, quadrivalent 04/24/2019 Influenza, injectable, quadrivalent, preservative free 04/10/2020 Influenza, seasonal, intradermal, preservative free 04/16/2014, 04/28/2017 Moderna SARS-CoV-2 Booster Vaccination 04/25/2021 Moderna SARS-CoV-2 Vaccination 08/10/2020, 09/06/2020, 12/27/2021 Pneumococcal Conjugate PCV 20 11/25/2022 Pneumococcal Polysaccharide PPSV23 04/09/2001, 07/02/2010 SARS-COV-2 (COVID-19) vaccine, mRNA, spike protein, LNP, PF, parish-sucrose, 30 mcg/0.3 mL 04/07/2023 SARS-COV-2 (COVID-19) vaccine, mRNA, spike protein, LNP, bivalent, PF 04/22/2022 Zoster, Recombinant 02/14/2023, 04/18/2023 -Patient's chronic conditions have been reviewed in preparation for this appointment. Protocols reviewed and updated. A collaborative plan of care has been created for pt regarding specific health concerns. Any barriers to care have been identified and addressed. Any part of this document that has been added/copied from other documents has been reviewed for accuracy and updated as appropriate at the time of the patient encounter. -Follow up for Next scheduled follow-up. Marilou Medina NP documented in this encounterUniversity of Missouri Children's [id number] History of Present illness Narrative* Eagle Sharif NP - 03/11/2024 2:40 PM EDT Images from the original note were not included. Deloris Bae is a 68 y.o. female presents with chief complaint of Conjunctivitis HPI: Conjunctivitis History of Present Illness The patient presents for evaluation of her eye. She reports experiencing discomfort after wearing contact lenses overnight, even though she did notscratch her eye. She removed the contacts the following morning and switched to wearing glasses. She noticed redness around the white part of her eye, which improved within the first 4 to 5 days but has not completely resolved. The eye is itchy and slightly tender. She has stopped wearing contact lenses and reports no changes in vision or light sensitivity. She had a head cold two weeks ago, which coincided with the onset of her eye symptoms. She has been using artificial tears three times a day, which she finds helpful, and has also tried cool compresses. She reports no discharge or pus. HISTORIES: PAST MEDICAL HISTORY: Past Medical History: Diagnosis Date Anxiety Arthritis Fibrocystic breast Intestinal malabsorption (CMS/HCC) Major depression (CMS/HCC) Multilevel degenerative disc disease Osteoporosis (CMS/HCC) S/P bariatric surgery Status post total hip replacement, left SURGICAL HISTORY: Past Surgical History: Procedure Laterality Date APPENDECTOMY 1972 BACK SURGERY 2000 BREAST SURGERY 1980 reduction CARPAL TUNNEL RELEASE CARPAL TUNNEL RELEASE Right 11/22/2022 DR RAMÍREZ CHOLECYSTECTOMY 1982 COLONOSCOPY 2009 COLONOSCOPY 11/30/2018 COLONOSCOPY W/ BIOPSIES EGD 12/24/2023 anastomotic ulcer ESOPHAGOSCOPY / EGD 06/28/2019 FINGER SURGERY 2008 foreign body surgery FINGER SURGERY Left 01/30/2021 [facility] arthroplasty GASTRIC BYPASS 02/2008 HIP ARTHROPLASTY Right 2016 DR. YEN HYSTERECTOMY 1989 JOINT REPLACEMENT 2005 and 2022 hips LUMBAR FUSION 01/2014 3 vertebrae w/ 4 cages NERVE SURGERY ablation, 11/21 & 12/06/2019 OTHER SURGICAL HISTORY 05/16/2017 L4/L5 Nerve Facet Block OTHER SURGICAL HISTORY 08/19/2017 TVT-O OTHER SURGICAL HISTORY 03/2022 RFA L5, S1-S3 REVISION TOTAL HIP ARTHROPLASTY Left 07/17/2022 SPINE SURGERY 01/2014 TONSILLECTOMY 1972 TOTAL ABDOMINAL HYSTERECTOMY 1989 RSO TOTAL HIP ARTHROPLASTY Right 03/2016 TUBAL LIGATION VAGINA SURGERY ablation VAGINECTOMY partial simple vaginectomy & laser SOCIAL HISTORY: Social History Tobacco Use Smoking status: Former Current packs/day: 0.00 Types: Cigarettes Quit date: 10/20/2006 Years since quittin.4 Smokeless tobacco: Never Vaping Use Vaping status: Never Used Substance Use Topics Alcohol use: Yes Alcohol/week: 3.0 - 4.0 standard drinks of alcohol Types: 3 - 4 Glasses of wine per week Comment: 6+ drinks monthly. Caffine intake: 1-2 cups per day Drug use: Never Depression: Not at risk (01/19/2024) PHQ-2 PHQ-2 Score: 0 FAMILY HISTORY: Family History Problem Relation Name Age of Onset Cancer Mother Minoo Ríos Heart disease Mother Minoo Ríos Hypertension Mother Minoo Ríos Lung cancer Father George Ríos Cancer Brother Tamia Ríos Cancer Brother Wolfgang Ríos MEDICATIONS: Current Outpatient Medications Medication Instructions ALPRAZolam (XANAX) 0.25 mg, Oral, 3 times daily PRN Bioflavonoid Products (COLLEEN C PO) Orally Biotin Maximum Strength 38545 MCG tablet 1 tablet, Oral, Every morning buPROPion XL (WELLBUTRIN XL) 300 mg, Oral, Every 24 hours Calcium Carbonate-Vit D-Min (CALTRATE 600+D PLUS MINERALS PO) Oral cholecalciferol (Vitamin D3) 25 MCG (1000 UT) tablet Every 24 hours [facility] Aspirin Low Dose 81 mg, Oral, Every morning cyanocobalamin (Vitamin B-12) 500 MCG tablet Every 24 hours denosumab (PROLIA) 60 mg, Subcutaneous, Every 6 months ezetimibe (ZETIA) 10 mg, Oral, Daily gabapentin (Neurontin) 300 MG capsule 1 capsule, Every 24 hours Multiple Vitamins-Minerals (PRESERVISION AREDS 2 PO) Every 24 hours omeprazole (PRILOSEC) 40 mg, Oral, 2 times daily before meals predniSONE (Deltasone) 1 MG tablet 2 tablets, Oral, Daily ALLERGIES: No Known Allergies PHYSICAL EXAM: Visit Vitals BP 130/80 Pulse 81 Temp 97.3 F Wt 145 lb SpO2 99% BMI 24.89 kg/m Smoking Status Former BSA 1.72 m BP Readings from Last 3 Encounters: 03/11/24 130/80 02/04/24 130/64 01/19/24 112/64 Wt Readings from Last 3 Encounters: 03/11/24 145 lb 02/04/24 142 lb 01/19/24 146 lb 9.6 oz Physical Exam HENT: Nose: Nose normal. Mouth/Throat: Mouth: Mucous membranes are moist. Eyes: General: Lids are normal. Lids are everted, no foreign bodies appreciated. Vision grossly intact. Gaze aligned appropriately. Right eye: No discharge. Left eye: No discharge. Extraocular Movements: Extraocular movements intact. Conjunctiva/sclera: Right eye: Right conjunctiva is injected. No exudate or hemorrhage. Left eye: Left conjunctiva is not injected. No chemosis, exudate or hemorrhage. Pupils: Pupils are equal, round, and reactive to light. Cardiovascular: Rate and Rhythm: Normal rate and regular rhythm. Heart sounds: Normal heart sounds. Pulmonary: Effort: Pulmonary effort is normal. Breath sounds: Normal breath sounds. Musculoskeletal: Cervical back: Neck supple. Neurological: Mental Status: She is alert. Physical Exam Results ASSESSMENT AND PLAN: Assessment & Plan 1. Viral Conjunctivitis. Her eye examination yielded normal results. The condition is suspected to be viral conjunctivitis, likely due to adenovirus, as she had a head cold about two weeks ago. She was advised to maintain good hand hygiene, particularly when touching her eyes, and to launder any towels or items that may have come into contact with her eyes to prevent spreading the infection. The use of Visine tears and cool compresses was recommended. If there is no improvement in her condition within a week, a referral to an client professional will be considered. She was also advised to monitor for any yellow discharge, increased pain, or worsening appearance, and to seek immediate care if these symptoms occur. documented in this encounterUniversity of Missouri Children's [id number] [facility] noteThe [facility]09[facility] Miscellaneous Notes* Telephone Encounter - Kecia Villatoro - 02/17/2024 9:47 AM EDT Patient called needs an antibiotic for dental cleaning and or procedures on: 02/23/24 [facility] What joint was replaced and when: 07/17/[address] Yen patient needs antibiotic if they have a had a joint replacement within 2 yrs:YES Or patient has had a revision or infection post op or any co morbidities: NO * Telephone Encounter - DION Rivera - 02/17/2024 9:47 AM EDT [facility] Tele[facility] encounter Note* Telephone Encounter - Kecia Villatoro - 02/17/2024 9:47 AM EDT Patient called needs an antibiotic for dental cleaning and or procedures on: 02/23/24 [facility] [address] [facility] What joint was replaced and when: 07/17/[address] Yen patient needs antibiotic if they have a had a joint replacement within 2 yrs:YES Or patient has had a revision or infection post op or any co morbidities: NO [facility]09-03-2024 Telephone encounter Note* Telephone Encounter - DION Rivera - 02/17/2024 9:47 AM EDT Refill sent [facility]08-21-20[facility] History of Present illness Narrative* Tony Sapp MD - 02/04/2024 10:20 AM EDT Images from the original note were not included. CHIEF COMPLAINT REASON FOR VISIT: TIA HPI: Deloris Bae is a 68 y.o. female who presents for a follow up. She states she is doing really well. She denies any headaches or blurriness. She states she is doing her crossword puzzles and she is doing a math leonardo so she can try to strengthen her math skills. She states she used to be able to do math in her head. She states she is sleeping okay. No refills. Denies any new concerns. CURRENT MEDICATIONS: ALLERGIES/DISCONTINUE MEDICATIONS Current Outpatient Medications Medication Instructions ALPRAZolam (XANAX) 0.25 mg, Oral, 3 times daily PRN Bioflavonoid Products (COLLEEN C PO) Orally Biotin Maximum Strength 96321 MCG tablet 1 tablet, Oral, Every morning buPROPion XL (WELLBUTRIN XL) 300 mg, Oral, Every 24 hours Calcium Carbonate-Vit D-Min (CALTRATE 600+D PLUS MINERALS PO) Oral cholecalciferol (Vitamin D3) 25 MCG (1000 UT) tablet Every 24 hours [facility]S Aspirin Low Dose 81 mg, Oral, Every morning cyanocobalamin (Vitamin B-12) 500 MCG tablet Every 24 hours denosumab (PROLIA) 60 mg, Subcutaneous, Every 6 months ezetimibe (ZETIA) 10 mg, Oral, Daily gabapentin (Neurontin) 300 MG capsule 1 capsule, Every 24 hours Multiple Vitamins-Minerals (PRESERVISION AREDS 2 PO) Every 24 hours omeprazole (PRILOSEC) 40 mg, Oral, 2 times daily before meals predniSONE (Deltasone) 1 MG tablet 3 tablets, Oral, Daily No Known Allergies Medications Discontinued During This Encounter Medication Reason lisinopril 10 MG tablet Therapy completed PAST MEDICAL HISTORY: SURGICAL/SOCIAL/FAMILY HISTORY DEPRESSION SCREEN: Past Medical History: Diagnosis Date Anxiety Arthritis Fibrocystic breast Intestinal malabsorption (CMS/HCC) Major depression (CMS/HCC) Multilevel degenerative disc disease Osteoporosis (CMS/HCC) S/P bariatric surgery Status post total hip replacement, left Past Surgical History: Procedure Laterality Date APPENDECTOMY 1971 BACK SURGERY 2000 BREAST SURGERY 1980 reduction CARPAL TUNNEL RELEASE CARPAL TUNNEL RELEASE Right 11/22/2022 DR RAMÍREZ CHOLECYSTECTOMY 1982 COLONOSCOPY 2009 COLONOSCOPY 11/30/2018 COLONOSCOPY W/ BIOPSIES EGD 12/24/2023 anastomotic ulcer ESOPHAGOSCOPY / EGD 06/28/2019 FINGER SURGERY 2008 foreign body surgery FINGER SURGERY Left 01/30/2021 [place] arthroplasty GASTRIC BYPASS 02/2008 HIP ARTHROPLASTY Right 2016 DR. YEN HYSTERECTOMY 1989 JOINT REPLACEMENT 2005 and 2022 hips LUMBAR FUSION 01/2014 3 vertebrae w/ 4 cages NERVE SURGERY ablation, 11/21 & 12/06/2019 OTHER SURGICAL HISTORY 05/16/2017 L4/L5 Nerve Facet Block OTHER SURGICAL HISTORY 08/19/2017 TVT-O OTHER SURGICAL HISTORY 03/2022 RFA L5, S1-S3 REVISION TOTAL HIP ARTHROPLASTY Left 07/17/2022 SPINE SURGERY 01/2014 TONSILLECTOMY 1972 TOTAL ABDOMINAL HYSTERECTOMY 1989 RSO TOTAL HIP ARTHROPLASTY Right 03/2016 TUBAL LIGATION VAGINA SURGERY ablation VAGINECTOMY partial simple vaginectomy & laser Social History Tobacco Use Smoking status: Former Current packs/day: 0.00 Types: Cigarettes Quit date: 10/20/2006 Years since quittin.3 Smokeless tobacco: Never Vaping Use Vaping status: Never Used Substance Use Topics Alcohol use: Yes Alcohol/week: 3.0 - 4.0 standard drinks of alcohol Types: 3 - 4 Glasses of wine per week Comment: 6+ drinks monthly. Caffine intake: 1-2 cups per day Drug use: Never Family History Problem Relation Name Age of Onset Cancer Mother Minoo Ríos Heart disease Mother Minoo Ríos Hypertension Mother Minoo Ríos Lung cancer Father George Ríos Cancer Brother Tamia Ríos Cancer Brother Wolfgang Ríos Depression: Not at risk (01/19/2024) PHQ-2 PHQ-2 Score: 0 REVIEW OF SYMPTOMS: Review of Systems Constitutional: Negative for chills, diaphoresis, fatigue and fever. HENT: Negative for ear pain, tinnitus and trouble swallowing. Eyes: Negative for photophobia and visual disturbance. Respiratory: Negative for cough and shortness of breath. Cardiovascular: Negative for palpitations and leg swelling. Gastrointestinal: Negative for abdominal pain and nausea. Genitourinary: Negative for difficulty urinating and urgency. Musculoskeletal: Negative for arthralgias, back pain, myalgias, neck pain and neck stiffness. Neurological: Negative for tremors, weakness, light-headedness and numbness. Psychiatric/Behavioral: Negative for agitation, confusion and suicidal ideas. OBJECTIVE: 02/04/2024 10:29 AM 01/19/2024 9:13 AM 12/19/2023 9:21 AM Vitals BMI 24.37 kg/m2 25.16 kg/m2 27.46 kg/m2 BSA (m2) 1.71 m2 1.73 m2 1.81 m2 Systolic 130 112 112 Diastolic 64 64 70 Heart Rate 73 75 SpO2 95 % 98 % Temp 98 F Height (in) 5' 4 5' 4 Weight (lb) 142 146.6 160 Visit Report Report Report Report EXAM: Neurological Exam Mental Status Awake, alert and oriented to person, place and time. Oriented to person, place and time. Recent andremote memory are intact. Speech is normal. Language is fluent with no aphasia. Attention and concentration are normal. Cranial Nerves CN II: Visual acuity is normal. Visual echols full to confrontation. CN III, IV, : Extraocular movements intact bilaterally. Normal lids and orbits bilaterally. Pupils equal round and reactive to light bilaterally. CN V: Facial sensation is normal. CN VII: Full and symmetric facial movement. CN VIII: Hearing is normal. CN XII: Tongue midline without atrophy or fasciculations. Motor Normal muscle bulk throughout. Normal muscle tone. Right Left Wrist flexion 5 5 Wrist extension 5 5 Right Left Deltoid 5 5 Biceps 5 5 Triceps 5 5 Wrist flexor 5 5 Wrist extensor 5 5 Glutei 5 5 Iliopsoas 5 5 Quadriceps 5 5 Gastrocnemius 5 5 Anterior tibialis 5 5 Posterior tibialis 5 5 Sensory Light touch is normal in upper and lower extremities. Pinprick is normal in upper and lower extremities. Vibration is normal in upper and lower extremities. Reflexes Right Left Brachioradialis 2+ 2+ Biceps 2+ 2+ Patellar 2+ 2+ Achilles 2+ 2+ Right Plantar: downgoing Left Plantar: downgoing Right pathological reflexes: Monique's absent. Ankle clonus absent. Left pathological reflexes: Monique's absent. Ankle clonus absent. Coordination [id number], rapid alternating movements and [id number] normal bilaterally without dysmetria. Gait Normal casual, toe, heel and tandem gait. Romberg is absent. PROCEDURE: NONE ASSESSMENT AND PLAN: Diagnoses and all orders for this visit: Cerebral infarction due to thrombosis of left middle cerebral artery (CMS/HCC): I counseled the patient on the possible side effects and interactions of medications. Deloris Bae is a 68 year old female who presents with episodes of altered levels of consciousness possibly due to seizure, syncope or cerebral hypoperfusion secondary to intracranial or extracranial stenosis. She also presents with cognitive difficulty possibly due to a neurodegenerative process such as vascular cognitive impairment without signs of vascular dementia. Other considerations would be pseudodementia secondary to depression or an underlying sleep disorder. I will obtain an MRA of the brain and neck to assess for an intracranial or extracranial blood flowabnormality which may be contributing to the patient's symptoms Carotid Duplex screen Follow up 1 year. documented in this [facility]06-24-2024 Evaluation note* Author [facility] Authored December 08, 2023 2:09 pm 68-year-old female with hist ory of gastric bypass and history of anastomotic ulcer came today for follow-up. Patient gastric bypass in 2007, she had anastomotic ulcer in 2019 which was treated with PPI. She has been having epigastric pain and dysphagia for the last 4 to 5 months. She started omeprazole 40 mg daily 2 months ago which caused improvement without complete resolution of her symptoms -Will arrange for EGD to determine the need to increase omeprazole [facility] Work Phone: [phone]) 546-544904-23-2024 Procedure noteThe [facility]02-11-2024 History of Present illness Narrative* George Hogue, - 07/27/2023 11:50 AM EST HPI: Historian of HPI: patient Deloris Bae is a 68 y.o. female who [...] Protein: Negative PH: 6.0 Blood: 3+ Specific [place]: 1.015 Ketone: Negative Glucose: Negative Neg Neg [...] by mouth in the morning and 1 capsule(500 mg) before bedtime. 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 Edited and approved by Dr. Trip Enriquez MD. [employer] Other 10-03-2023 [facility] noteThe [facility]09-[facility]23 Evaluation note* Encounter Date Diagnosis Assessment [...] longer covered under insurance and would be [id number]. She wishes to proceed and self pay for this procedure. Anatomy of spine discussed in detail with patient in regard to patients condition. Feb, Other chronic pain (ICD-10 - G89.29) Feb, Other Above note writ ten by Maurice Cook LPN, Marine Consultant. Edited and approved by Dr. Trip Enriquez MD. [employer] Other 11-09-2022 Evaluation note* Encounter Date Diagnosis [...] educated regarding the risks and benefits of penitentiary opioid use. She understands the associated risks with this medication and agrees that it provides reasonable benefit in regard to her pain control and level of function. This medication was refilled today. Anatomy of spine discussed in detail with patient in regard to patients condition. Apr, Other chronic pain (ICD-10 - G89.29) Apr, Other Above note writ ten by Maurice Cook LPN, Marine Consultant. Edited and approved by Dr. Trip Enriquez MD. [employer] Other 11-09-2022 Evaluation note* Encounter Date Diagnosis Assessment Notes Treatment Notes Treatment Clinical Notes Apr, Other low back pain (ICD-10 - M54.59) Apr, Lumbosacral spondylosis without myelopathy (ICD-10 - M47.817) [employer] Other 08-25-2022 Evaluation note* Encounter Date Diagnosis Assessment Notes [...] educated regarding the risks and benefits of medical terminologist opioid use. She understands the associated risks with this medication and agrees that it provides reasonable benefit in regard to her pain control and level of function. This medication was refilled today. Anatomy of spine discussed in detail with patient in regard to patients condition. Jan, Other chronic pain (ICD-10 - G89.29) Jan, Other Above note writ ten by Maurice Cook LPN, Marine Consultant. Edited and approved by Dr. Trip Enriquez MD. [facility] [employer] Other 05-24-2022 Evaluation note* Encounter Date Diagnosis [...] educated regarding the risks and benefits of penitentiary opioid use. She understands the associated risks [...] note writ ten by Maurice Cook LPN, Marine Consultant. Edited and approved by Dr. Trip Enriquez MD. [employer] Other 04-20-2022 Evaluation note* Encounter Date Diagnosis [...] educated regarding the risks and benefits of medical terminologist opioid use. She understands the associated risks [...] note writ ten by Maurice Cook LPN, Marine Consultant. Edited and approved by Dr. Trip Enriquez MD. [employer] Other 02-07-2022 NoteHISTORY: Bone density screening. COMPARISON: [...] FOLLOW-UP. Report reported and signed by Estela Vicente on 07/23/2021 1131[facility] Evaluation note* Encounter Date Diagnosis Assessment Notes [...] educated regarding the risks and benefits of penitentiary opioid use. She understands the associated risks [...] note writ ten by Wesley Espinal MA, Marine Consultant. Edited and approved by Dr. Trip Enriquez MD. [facility] [employer] Other 01-27-2011 History of Past illness Narrative* Problem Noted Date Diagnosed Date Resolved Date Vaginal dysplasia 07/12/2010 documented as of this encounter (statuses as of 01/24/2023) [facility]No assessment information availableDayton Children'S Hospital Work Phone: evaluation noteNo InformationNortWayne [facility] Hospital [employer] Other Evaluation noteNortWayne [facility] Hospital [employer] Other Evaluation note* Diagnosis PMR (polymyalgia rheumatica) (HCC) Polymyalgia rheumatica Pain of both shoulder joints Bilateral hand pain Pain in limb [facility] Diagnosis Acute cystitis with hematuria- Primary Dysuria documented in this encounter [facility]* Diagnosis Onset Date Resolution Status Degenerative joint disease of sacroiliac joint acute Other chronic pain acute Other low back pain acute [facility] Work Phone: Evaluation note* Diagnosis Onset Date Resolution Status Degenerative joint disease of sacroiliac joint acute Other chronic pain acute Other low back pain acute Globus sensation acute [facility] Work Phone: evaluation note* Diagnosis Onset Date Resolution Status Degenerative joint disease of sacroiliac joint acute Other chronic pain acute Other low back pain acute Degenerative joint disease of sacroiliac joint acute Other chronic pain acute Other low back pain acute Degenerative joint disease of sacroiliac joint acute Other chronic pain acute Other low back pain acute [facility] Work Phone: Evaluation note* Diagnosis Acute pain of right shoulder- Primary Acute pain of left shoulder Spasm of muscle of lower back Polymyalgia rheumatica (CMS/HCC) Polymyalgia rheumatica documented in this encounter [facility] HealthcareEvaluation note* Diagnosis Generalized anxiety disorder (CMS/HCC) Generalized anxiety disorder documented in this encounter [facility]* Diagnosis Acute pain of left shoulder- Primary Acute pain of right shoulder documented in this encounter [facility]* Diagnosis Cerebral infarction due to thrombosis of left middle cerebral artery (CMS/HCC) documented in this encounter [facility]* Diagnosis Generalized anxiety disorder (CMS/HCC) Generalized anxiety disorder documented in this encounter [facility] HealthcareEvaluation note* Diagnosis Viral conjunctivitis- Primary documented in this encounter [facility] note* Diagnosis Acute right MCA stroke (CMS/HCC)- Primary Unspecified cerebral artery occlusion with cerebral infarction Impaired mobility Other ill-defined conditions Major depressive disorder, single episode, moderate (HCC) (CMS/HCC) Major depressive disorder, single episode, moderate Dysphagia, unspecified type Generalized anxiety disorder (CMS/HCC) Generalized anxiety disorder Left hemiplegia (CMS/HCC) Unspecified hemiplegia affecting unspecified side Neurogenic bladder Neurogenic bladder, NOS documented in this encounter [facility]* Diagnosis Cerebrovascular accident (CVA), unspecified mechanism (CMS-HCC) TIA (transient ischemic attack) Unspecified transient cerebral ischemia [facility]* Diagnosis Cerebrovascular accident (CVA), unspecified mechanism (CMS-HCC)- Primary Abnormal patient-activated cardiac event monitor documented [facility] encounter [facility]* Diagnosis High risk medication use- Primary Abnormal EKG Nonspecific abnormal electrocardiogram (ECG) (EKG) Cerebrovascular accident (CVA), unspecified mechanism (Multi) History of TIA (transient ischemic attack) Mixed hyperlipidemia Polymyalgia rheumatica (Multi) Polymyalgia rheumatica BMI 24.0-24.9, adult Former smoker Personal history of tobacco use, presenting hazards to health documented in this encounter [facility] Work Phone: Evaluation note* Diagnosis Generalized anxiety disorder (CMS/HCC) Generalized anxiety disorder documented in this encounter [facility]* Diagnosis Pure hypercholesterolemia (CMS/HCC)- Primary Pure hypercholesterolemia History of CVA (cerebrovascular accident) Transient ischemic attack (TIA), and cerebral infarction without residual deficits Moderate major depression (CMS/HCC) Major depressive disorder, single episode, moderate Generalized anxiety disorder (CMS/HCC) Generalized anxiety disorder Polymyalgia rheumatica (CMS/HCC) Polymyalgia rheumatica Primary osteoarthritis involving multiple joints Age-related osteoporosis without current pathological fracture (CMS/HCC) History of bariatric surgery Bariatric surgery status Medication management documented in this encounter [facility]Evaluation [facility]* Diagnosis Visit for suture removal- Primary Laceration of scalp without foreign body, subsequent encounter documented in this encounter [facility]* Diagnosis Aftercare following right hip joint replacement surgery- Primary documented [facility]* Diagnosis TIA (transient ischemic attack)- Primary Unspecified transient cerebral ischemia [facility] Diagnosis Cerebrovascular accident (CVA), unspecified mechanism (CMS-HCC)- Primary [facility] Fall, subsequent encounter- Primary Acute pain of right shoulder Pain in right upper arm Localized swelling on right hand Neck pain Cervicalgia Cervical spondylosis Cervical spondylosis without myelopathy Limited range of motion (ROM) of shoulder documented in this encounter [facility]* Diagnosis Abnormal EKG Nonspecific abnormal electrocardiogram (ECG) (EKG) Cerebrovascular accident (CVA), unspecified mechanism (Multi) History of TIA (transient ischemic attack) Mixed hyperlipidemia BMI 24.0-24.9, adult documented in this encounter [facility] Work Phone: Evaluation note* Diagnosis Pain of right thumb- Primary Localized osteoarthritis of right shoulder [facility] Primary osteoarthritis involving multiple joints- Primary documented in this encounter [facility]* Diagnosis Hemiparesis of left nondominant side as late effect of cerebrovascular disease, unspecified cerebrovascular disease type (HCC)- Primary Foot contracture, left Gastrocnemius 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 Difficulty walking Difficulty in walking Tailor's bunion of left foot [facility] Pain Generalized pain [facility] Diagnosis Hemiparesis of left nondominant side as late effect of cerebrovascular disease, unspecified cerebrovascular disease type (HCC)- Primary Foot contracture, left Gastrocnemius 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 Difficulty walking Difficulty in walking Tailor's bunion of left foot [facility] Diagnosis Generalized anxiety disorder (CMS/HCC) Generalized anxiety disorder documented in this encounter [facility]* Diagnosis Pain of right thumb- Primary Localized osteoarthritis of right shoulder documented in this encounter [facility]* Diagnosis Pre-op evaluation- Primary Preoperative examination, unspecified Former smoker Personal history of tobacco use, presenting hazards to health History of CVA (cerebrovascular accident) Transient ischemic attack (TIA), and cerebral infarction without residual deficits History of gastric bypass Bariatric surgery status Depression, unspecified depression type Hemiparesis of left nondominant side as late effect of cerebrovascular disease, unspecified cerebrovascular disease type (HCC) Foot contracture, left Gastrocnemius 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 Difficulty walking Difficulty in walking Tailor's bunion of left foot * Assessment & Plan Note - Monica Luu APRN.CNP - 10/05/2024 11:28 AM EDTAssociated Problem(s): Depression Assessment: stable on medication Denies any suicidal ideation * Assessment & Plan Note - Monica Luu APRN.CNP - 10/05/2024 11:28 AM EDTAssociated Problem(s): History of gastric bypass Assessment: History of Gastric Bypass in 2007 Body mass index is 24.22 kg/m . * Assessment & Plan Note - Monica Luu APRN.CNP - 10/05/2024 11:21 AM EDTAssociated Problem(s): History of CVA (cerebrovascular accident) Assessment: (04/2024) for ischemic stroke secondary to cryptogenic. * Assessment & Plan Note - Monica Luu APRN.CNP - 10/05/2024 11:06 AM EDTAssociated Problem(s): Former smoker Assessment: 1.5 packs/day, for 28 years. Quit 06/16/2006. [facility] Diagnosis Primary osteoarthritis involving multiple joints documented in this encounter [facility]* Diagnosis Pre-op evaluation- Primary Preoperative examination, unspecified Former smoker Personal history of tobacco use, presenting hazards to health History of CVA (cerebrovascular accident) Transient ischemic attack (TIA), and cerebral infarction without residual deficits History of gastric bypass Bariatric surgery status Depression, unspecified depression type Post-operative state- Primary Other postprocedural status documented [facility]* Diagnosis Pre-op evaluation- Primary Preoperative examination, unspecified Former smoker Personal history of tobacco use, presenting hazards to health History of CVA (cerebrovascular accident) Transient ischemic attack (TIA), and cerebral infarction without residual deficits History of gastric bypass Bariatric surgery status Depression, unspecified depression type Post-operative state- Primary Other postprocedural status [facility]* Diagnosis Generalized anxiety disorder ([facility] Generalized anxiety disorder [facility] Diagnosis Pre-op evaluation- Primary Preoperative examination, unspecified Former smoker Personal history of tobacco use, presenting hazards to health History of CVA (cerebrovascular accident) Transient ischemic attack (TIA), and cerebral infarction without residual deficits History of gastric bypass Bariatric surgery status Depression, unspecified depression type Post-operative state- Primary Other postprocedural status [facility] Diagnosis Pre-op evaluation- Primary Preoperative examination, unspecified Former smoker Personal history of tobacco use, presenting hazards to health History of CVA (cerebrovascular accident) Transient ischemic attack (TIA), and cerebral infarction without residual deficits History of gastric bypass Bariatric surgery status Depression, unspecified depression type Post-operative state- Primary Other postprocedural status [facility] Diagnosis Pre-op evaluation- Primary Preoperative examination, unspecified Former smoker Personal history of tobacco use, presenting hazards to health History of CVA (cerebrovascular accident) Transient ischemic attack (TIA), and cerebral infarction without residual deficits History of gastric bypass Bariatric surgery status Depression, unspecified depression type Post-operative state- Primary Other postprocedural status documented in this [facility]* Diagnosis Pre-op evaluation- Primary Preoperative examination, unspecified Former smoker Personal history of tobacco use, presenting hazards to health History of CVA (cerebrovascular accident) Transient ischemic attack (TIA), and cerebral infarction without residual deficits History of gastric bypass Bariatric surgery status Depression, unspecified depression type Post-operative state- Primary Other postprocedural status documented in this [facility]* Diagnosis Pre-op evaluation- Primary Preoperative examination, unspecified Former smoker Personal history of tobacco use, presenting hazards to health History of CVA (cerebrovascular accident) Transient ischemic attack (TIA), and cerebral infarction without residual deficits History of gastric bypass Bariatric surgery status Depression, unspecified depression type Post-operative state Other postprocedural status documented in this [facility]* Diagnosis Cervicalgia- Primary Primary osteoarthritis involving multiple joints documented in this encounter [facility]* Diagnosis Generalized anxiety disorder Generalized anxiety disorder documented in this encounter [facility]* Diagnosis 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- Primary Aftercare following right hip joint replacement surgery [facility] Diagnosis Pre-op evaluation- Primary Preoperative examination, unspecified Former smoker Personal history of tobacco use, presenting hazards to health History of CVA (cerebrovascular accident) Transient ischemic attack (TIA), and cerebral infarction without residual deficits History of gastric bypass Bariatric surgery status Depression, unspecified depression type History of CVA (cerebrovascular accident)- Primary Transient ischemic attack (TIA), and cerebral infarction without residual deficits Left foot drop Other acquired deformity of ankle and foot Foot contracture, left Hemiparesis of left nondominant side, unspecified hemiparesis etiology (HCC) Difficulty walking Difficulty in walking documented in this encounter [facility] note* Diagnosis Moderate major depression (HCC)- Primary Major depressive disorder, single episode, moderate History of CVA (cerebrovascular accident) Transient ischemic attack (TIA), and cerebral infarction without residual deficits [facility] N[facility] - Reported* Type Description Date [...] wrist surgery 01/2021 Hospitalization History see above [facility] Other History general Narrative - ReportedNorth ensembli Other Hospital course Narrative No data available for this section [facility] Hospital Discharge instructions Additional Instructions DISCHARGE INSTRUCTIONS FOR UPPER ENDOSCOPY WHAT TO EXPECT: - You may feel full, gassy or cramping after your procedure. In some cases, this may be from a few hours to a day. Walking may help relieve the discomfort. - Your throat may feel sore today from the scope that the doctor passed through your throat to visualize your stomach. Take a throat lozenge or suck on ice to ease the discomfort. - You may notice some streaks of blood in your sputum if the doctor has taken a biopsy. - You should begin to recover from anesthesia within 1 hour of the procedure, however may feel groggy for the next 24 hours. DO's AND DON'Ts: - Call your doctor right away if you have a hard abdomen, severe pain, vomiting or if you cough up large amounts of blood. - Call your doctor if you develop any rashes, hives or difficulty breathing. - If you take 81 mg aspirin for your heart it is safe to resume this medication. - If you take other blood thinner medications your doctor will instruct you when these can safely be resumed. - Do NOT drive for 24 hours. - Do NOT operate machinery such as power tools, lawn mowers, snow blowers, sewing machines, etc. for 24 hours. - Avoid alcoholic beverages and drugs for allergies, nerves, or sleep. - Do NOT stay alone. Do NOT leave your child unattended. - Do NOT make important personal or business decisions or sign any legal documents. - Eat solid foods and drink liquids in smaller amounts than usual until normal appetite returns. If you should experience an upset stomach, liquids high in sugar content (soda, Satya-Aid, non-acid juices) are recommended. - Do NOT smoke. - Do take it easy today. You need not stay in bed, but avoid strenuous activities such as jogging or working out. FOLLOW UP & RECOMMENDATIONS: -Increase omeprazole to 40 mg twice daily, will recommend the patient to take open capsules -Notify the doctor if you have any problems. -Office number [phone]. [facility] Work Phone: Hospital Discharge instructions No data available for this section [facility] Hospital Discharge instructions Additional Instructions You were seen today after a fall. Your CT scans of your head and your neck showed no new changes. You had x-rays of your lumbar spine and sacrum and your hardware is intact. No fractures or dislocations. As we discussed if you have any new headache, vision changes, numbness or weakness in your extremities or any other concerns please return to the emergency department immediately. Otherwise please follow-up with your primary care in the next 2 to 3 days for reevaluation. As we discussed you are increased risk for head bleeding given you are on Eliquis and this can be delayed in presentation. Please call 911 if you have any changes in your mentation. [facility] Work Phone: InstructionsNot on filedocumented in this encounter [facility] filedocumented in this encounter [facility] filedocumented in this encounter [facility] filedocumented in this encounter [facility] filedocumented in this encounter [facility] filedocumented in this encounter [facility] No data available for this section [facility] Reason for referral (narrative)* Diagnostic Procedure Only (Routine) - Closed Specialty Diagnoses / Procedures Referred By Jessica t Referred To Contact XR IMAGING Diagnoses Bilateral hand pain Procedures XR HAND GENERAL 3V PA/LAT/OBL BILATERAL RADEX HAND MINIMUM 3 VIEWS Josué Pham MD [address] [place] [address] Xr Imaging Referral ID Status Reason Start Date Expiration Date V isits Requested Visits Authorized [id number] Closed Auto-Generate d Referral 02/26/2022 03/28/2023 1 1 * Diagnostic Procedure Only (Routine) - Closed Specialty Diagnoses / Procedures Referred By Contac t Referred To Contact XR IMAGING Diagnoses PMR (polymyalgia rheumatica) (HCC) Pain of both shoulder joints Procedures XR SHOULDER [id number] AP/TRUE AP RIGHT RADEX SHOULDER COMPLETE MINIMUM 2 VIEWS Josué Pham MD [address] [place] [address] Xr Imaging Referral ID Status Reason Start Date Expiration Date V isits Requested Visits Authorized [id number] Closed Auto-Generate d Referral 02/26/2022 03/28/2023 1 1 * Diagnostic Procedure Only (Routine) - Closed Specialty Diagnoses / Procedures Referred By Contac t Referred To Contact XR IMAGING Diagnoses PMR (polymyalgia rheumatica) (HCC) Pain of both shoulder joints Procedures XR SHOULDER LIMITED 2V AP/TRUE AP LEFT RADEX SHOULDER COMPLETE MINIMUM 2 VIEWS Josué Pham MD [address] [place] [address] Xr Imaging Referral ID Status Reason Start Date Expiration Date V isits Requested Visits Authorized [id number] Closed Auto-Generate d Referral 02/26/2022 03/28/2023 1 1 [facility] for visit Narrative* Diagnostic Procedure Only (Routine) - Closed Specialty Diagnoses / Procedures Referred By Contac t Referred To Contact XR IMAGING Diagnoses Bilateral hand pain Procedures XR HAND GENERAL 3V PA/LAT/OBL BILATERAL RADEX HAND MINIMUM 3 VIEWS Josué Pham MD [address] [place] [address] Xr Imaging Referral ID Status Reason Start Date Expiration Date V isits Requested Visits Authorized [id number] Closed Auto-Generate d Referral 02/26/2022 03/28/2023 1 1 [facility] for visit Narrative* Rehabilitation - Outpatient (Routine) - Pending Review Specialty Diagnoses / Procedures Referred By Contac t Referred To Contact Physical Therapy Diagnoses Acute pain of right shoulder Acute pain of left shoulder Spasm of muscle of lower back Procedures AR OFFICE/OUTPATIENT NEW HIGH MDM 60 MINUTES Tamia France MD [address] [place] [address] Phone: tel: fax: Daniela Hurtado PT Referral ID Status Reason Start Date Expiration Date Visits Requested Visits Authorized [id number] Pending Review Specialty Services Required 4 10/03/2024 1 1 [facility]* Cardiac Stress Testing (Routine) - Authorized Specialty Diagnoses / Procedures Referred By Contac t Referred To Contact Radiology Diagnoses Abnormal EKG Cerebrovascular accident (CVA), unspecified mechanism (Multi) History of TIA (transient ischemic attack) Mixed hyperlipidemia BMI 24.0-24.9, adult Procedures Nuclear Stress Test CHG MYOCARDIAL SPECT MULTIPLE STUDIES Kimmie Beaver MD [address] [facility] [address] [place] [address] Phone: tel: fax: Referral ID Status Reason Start Date Expiration Date V isits Requested Visits Authorized [id number] Authorized 07/22/2024 07/22/2025 5 5 [facility] Work Phone: [facility] for visit Narrative* Cardiac Stress Testing (Routine) - Authorized Specialty Diagnoses / Procedures Referred By Contac t Referred To Contact Radiology Diagnoses Abnormal EKG Cerebrovascular accident (CVA), unspecified mechanism (Multi) History of TIA (transient ischemic attack) Mixed hyperlipidemia BMI 24.0-24.9, adult Procedures Nuclear Stress Test CHG MYOCARDIAL SPECT MULTIPLE STUDIES Kimmie Beaver MD [address] [facility] [address] [place] [address] Phone: tel: fax: Referral ID Status Reason Start Date Expiration Date V isits Requested Visits Authorized [id number] Authorized 07/22/2024 07/22/2025 5 5 [facility] Work Phone: Reaklt for visit Narrative* Diagnostic Procedure Only (Routine) - Closed Specialty Diagnoses / Procedures Referred By Contac t Referred To Contact XR IMAGING Diagnoses Pain Procedures XR FOOT GENERAL 3V AP/LAT/OBL LEFT RADEX FOOT COMPLETE MINIMUM 3 VIEWS Trevor Lancaster DPM [address] [place] [address] Phone: tel: fax: [place] [id number] Referral ID Status Reason Start Date Expiration Date V isits Requested Visits Authorized [id number] Closed Auto-Generate d Referral 08/24/2024 09/23/2025 1 1 [facility]* Diagnostic Procedure Only (Routine) - Closed Specialty Diagnoses / Procedures Referred By Contac t Referred To Contact XR IMAGING Diagnoses Post-operative state Procedures XR FOOT GENERAL 3V AP/LAT/OBL RIGHT RADEX FOOT COMPLETE MINIMUM 3 VIEWS Trevor Lancaster DPM [address] [place] [address] Phone: tel: fax: [place] [id number] Referral ID Status Reason Start Date Expiration Date V isits Requested Visits Authorized [id number] Closed Auto-Generate d Referral 11/25/2024 12/25/2025 1 1 [facility] Summary Purpose Family History No Family History [...] Onset Recorded Date/T rikki father Malignant neoplasm of lung Unknown Unknown mother Unknown Myelodysplastic syndrome Unknown brother Unknown Malignant neoplasm of liver Unknown Malignant neoplasm of esophagus Unknown family member Unknown Advance Directives No Advanced Directives Records Found Advance Directive Response Recorded Date/ Time Advance Directives Yes April 2:42pm Advance Directive Response Recorded Date/ Time Advance Directives Yes April 1:42pm Date Activated Date Inactivated Comments 07/15/2022 2:13 PM 07/17/2022 6:42 PM Date Activated Date Inactivated Comments 07/15/2022 2:13 PM 07/17/2022 6:42 PM Chief Complaint and Reason for Visit Chief [...] pain Other low back pain Chief Complaint M81.0. RECHECK BACK PAIN LUMBAR PAIN LUMBAR PAIN med refills, Dr Carvajal pt Reason for Visit Degenerative joint d isease of sacroiliac joint Other chronic pain Other low back pain Globus sensation Chief Complaint LUMBAR PAIN LUMBAR PAIN med refills, Dr Carvajal pt globus sensation Reason for Visit Dyspepsia Dysphagia Chief Complaint LUMBAR PAIN LUMBAR PAIN med refills, Dr Carvajal pt globus sensation globus sensation 3 MONTHS F/U RIGHT SI RFA Reason for Visit Dyspepsia Dysphagia Degenerative joint disease of sacroiliac joint Other chronic pain Other low back pain Chief Complaint med refills, Dr Mark case pt globus sensation globus sensation 3 MONTHS F/U RIGHT SI RFA BACK PAIN Reason for Visit Dyspepsia Dysphagia Degenerative joint disease of sacroiliac joint Other chronic pain Other low back pain Degenerative joint disease of sacroiliac joint Other chronic pain Other low back pain Chief Complaint med refills, Dr Mark case pt globus sensation globus sensation 3 MONTHS F/U RIGHT SI RFA BACK PAIN Back Pain Back Pain Reason for Visit Dyspepsia Dysphagia Degenerative joint disease of sacroiliac joint Other chronic pain Other low back pain Degenerative joint disease of sacroiliac joint Other chronic pain Other low back pain Chief Complaint globus sensation globus sensation 3 MONTHS F/U RIGHT SI RFA BACK PAIN Back Pain Back Pain F/U AFTER LEFT SI RFA Reason for Visit Degenerative joint d isease of sacroiliac joint Other chronic pain Other low back pain Degenerative joint disease of sacroiliac joint Other chronic pain Other low back pain Degenerative joint disease of sacroiliac joint Other chronic pain Other low back pain Chief Complaint Admit Date M81.0. April 09, 2024 1 1:30am Right MCA CVA April 29, 2024 5:04pm Right MCA CVA April 30, 2024 9:06am Right MCA CVA May 07, 2024 12:03pm Right MCA CVA 2024 1:02pm Right MCA CVA May 21, 2024 1 2:25pm Right MCA CVA May 30, 2024 4:43pm [facility] June 02, 2024 12:00pm MK stroke June 22, 2024 1: 00pm Reason for Visit Admit Date Acute right MCA stroke April 29 5:04pm Anxiety April 29, 2024 5:04pm Depression April 29, 2024 5:04pm Dysphagia April 29, 2024 5:04pm Impaired mobility and activities of cristel y living April 29, 2024 5:04pm Left hemiplegia April 29, 2024 5:04pm Neurogenic bladder April 29, 2024 5:04pm Chief Complaint Admit Date Right MCA CVA April 29, 2024 5:04pm Right MCA CVA April 30, 2024 9:06am Right MCA CVA May 07, 2024 12:03pm Right MCA CVA 2024 1:02pm Right MCA CVA May 21, 2024 1 2:25pm Right MCA CVA May 30, 2024 4:43pm [facility] June 02, 2024 12:00pm MK stroke July 12, 2024 1 0:30am fall, hit head July 12, 2024 3 :25pm Chief Complaint Admit Date Right MCA CVA April 29, 2024 5:04pm Right MCA CVA April 30, 2024 9:06am Right MCA CVA May 07, 2024 12:03pm Right MCA CVA 2024 1:02pm Right MCA CVA May 21, 2024 1 2:25pm Right MCA CVA May 30, 2024 4:43pm [facility] June 02, 2024 12:00pm fall, hit head July 12, 2024 3 :25pm MK only 2/10 stroke July 21, 2024 1 :00pm head lac, fell 07-22-24 July 22, 2024 2:53pm Additional Source Comments INFORMATION SOURCE (unrecogn ized section and content) DATE CREATED AUTHOR 08/10/2021 [facility] DATE CREATED AUTHOR AUTHOR'S ORGANIZ ATION 10/18/2022 [facility] DATE CREATED AUTHOR AUTHOR'S ORGANIZ ATION 04/26/2024 [facility] DATE CREATED AUTHOR AUTHOR'S ORGANIZ ATION 05/02/2024 [facility] DATE CREATED AUTHOR AUTHOR'S ORGANIZ ATION 05/09/2024 [facility] DATE CREATED AUTHOR AUTHOR'S ORGANIZ ATION 08/07/2024 [facility] DATE CREATED AUTHOR AUTHOR'S ORGANIZ ATION 08/19/2024 [facility] DATE CREATED AUTHOR AUTHOR'S ORGANIZ ATION 10/03/2024 [facility] DATE CREATED AUTHOR AUTHOR'S ORGANIZ ATION 01/13/2025 [facility] DATE CREATED AUTHOR AUTHOR'S ORGANIZ ATION 01/14/2025 [facility] DATE CREATED AUTHOR AUTHOR'S ORGANIZ ATION 01/16/2025 [facility] DATE CREATED AUTHOR AUTHOR'S ORGANIZ ATION 01/29/2025 [facility] REASON FOR VISIT (unrecogniz ed section and content) Reason Comments Shoulder Pain Reason Onset Date Comments Med Refill 04/15/2024 Reason Onset Date Comments Med Refill 02/17/2024 Reason Comments Conjunctivitis Reason Comments Hospital Follow-up Dx: Right DINA occlus ion, 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 She is currently attending therapy at [facility]. Neurology appointment in July with Gonzalo iNcole MD Reason Comments New Patient Visit Referral-abnormal mo nitor Specialty Diagnoses / Procedures Referred By Jessica t Referred To Contact Diagnoses Abnormal EKG Cerebrovascular accident (CVA), unspecified mechanism (Multi) Procedures ECG 12 Lead Kimmie Beaver MD [address] [address], [address] [address] Phone: tel: fax: Referral ID Status Reason Start Date Expiration Date V isits Requested Visits Authorized [id number] Authorized 07/22/2024 07/22/2025 1 1 Reason Onset Date Comments Med Refill 07/22/2024 Reason Comments 6 Month Follow-up of Chronic Conditions Review lab drawn 06/23/2024. S/P acute right MCA stroke, seen for hospital follow-up 06/23/2024She has had two falls since last seen. She was seen at [facility] on 07/12/2024 after falling. Complaints of low back pain. Bruising on left shoulder. [facility] Reason Comments Suture / Staple Removal She experienced 2 falls, with the most recent one occurring on 07/12/2024, resulting in 6 luz marina in the back of her head Reason Onset Date Comments Patient Education 02/17/2024 Reason Onset Date Comments Med Refill 05/17/2024 Reason Onset Date Comments reschedule appt 05/24/2024 Reason Comments right arm pain Reason Comments Pain Reason Onset Date Comments Med Refill 09/20/2024 Reason Comments Radiology XR Reason Comments New Reason Comments Surgical Followup Reason Onset Date Comments Med Refill 09/28/2024 Reason Comments Pain Reason Comments Pre-Op Visit Reason Onset Date Comments Med Refill 10/14/2024 Reason Comments Established Patient Post Op Reason Comments Patient Update - Pain Reason Onset Date Comments Med Refill 11/02/2024 Reason Onset Date Comments Refill Request 11/11/2024 Reason Comments Neck Pain Pain began 2-3 weeks ago and is worsening. Pain and difficulty with turning head and looking up. Applying heat worsens pain. Ice is ineffective. Reason Comments Refill Request Reason Onset Date Comments Med Refill 01/06/2025 Reason Comments Depression Care Teams (unrecognized sec tion and content) Team Status: Active Member Role Status Dates Tamia France MD Primary Care Provider Active Team Status: Inactive Member Role Status Dates Tamia France MD Primary Care Provider Active St art: April 29, 2024 End: June 02, 2024 Trace Laughlin MD Admit Provider, Felicia cervantes Provider Active Start: April 29, 2024 End: June 02, 2024 Sakshi Marley RN Other Provider Active Star t: April 29, 2024 End: June 02, 2024 Shama Chan RN Other Provider Active Start : April 29, 2024 End: June 02, 2024 Paola Shirley RN Other Provider Active Star t: April 29, 2024 End: June 02, 2024 Makayla Bermudez RN Other Provider Active Start: N ov2023 End: June 02, 2024 Barbara Montemayor RN Other Provider Active Start: No vember 2023 End: June 02, 2024 Isabel Chairez MD Other Provider Active Start: April 29, 2024 End: June 02, 2024 Luciana Hughes DO Other Provider Active Start : April 29, 2024 End: June 02, 2024 Yusef Pereira MD Other Provider Active Start : April 29, 2024 End: June 02, 2024 Manish Soliman DO Other Provider Active Start: April 29, 2024 End: June 02, 2024 Kumar Roth MD Other Provider Active Start: April 29, 2024 End: June 02, 2024 Krystal Andres MD Other Provider Active Start : April 29, 2024 End: June 02, 2024 Mandi Kim DO Other Provider Active St art: April 29, 2024 End: June 02, 2024 Jonathan Bravo MD Other Provider Active Start: N 2023 End: June 02, 2024 Parvin Santo APRN Other Provider Active Start: April 29, 2024 End: June 02, 2024 Rony Diaz MD Other Provider Active Start: April 29, 2024 End: June 02, 2024 Charlie Wihtfield MD Other Provider Active Start: N 2023 End: June 02, 2024 Boyd Bhat MD Other Provider Active Start: April 29, 2024 End: June 02, 2024 Kym Correia MD Other Provider Active Start: April 29, 2024 End: June 02, 2024 Mandi Louise DO Other Provider Active Start: April 29, 2024 End: June 02, 2024 Nay Maloney MD Other Provider Active Start: No vember 2023 End: June 02, 2024 Naun Vazquez MD Other Provider Active Start: Apr End: June 02, 2024 MEG Doe Other Provider Active St art: April 29, 2024 End: June 02, 2024 Jens Szymanski APRN Other Provider Active Star t: April 29, 2024 End: June 02, 2024 Kyler Hess MD Other Provider Active Start: April 29, 2024 End: June 02, 2024 Godwin Ayoub MD Other Provider Active Start: No vember 2023 End: June 02, 2024 Johnson Lucio MD Other Provider Active Start: Apr End: June 02, 2024 Cassy Koch MD Other Provider Active Star t: April 29, 2024 End: June 02, 2024 Neto Tomlinson MD Other Provider Active Start: N ovember 2023 End: June 02, 2024 Harriett Troncoso DO Other Provider Active Start: No vember 2023 End: June 02, 2024 Ever Brewer DO Other Provider Active Start : April 29, 2024 End: June 02, 2024 Juani Whalen APRN Other Provider Active Start: April 29, 2024 End: June 02, 2024 Fawad Benavidez DO Other Provider Active Start: April 29, 2024 End: June 02, 2024 Mechelle Obrien MD Other Provider Active Sta rt: April 29, 2024 End: June 02, 2024 Fanny Espinal APRN Other Provider Active Start : April 29, 2024 End: June 02, 2024 Raiza Bauer APRN Other Provider Active St art: April 29, 2024 End: June 02, 2024 Bartolo Ford MD Other Provider Active Start: N ovember 2023 End: June 02, 2024 Carlos Champion MD Other Provider Active S tart: April 29, 2024 End: June 02, 2024 Sarwat Hernandez DO Other Provider Active Star t: April 29, 2024 End: June 02, 2024 Phan Massey , Other Provider Active Start: April 29, 2024 End: June 02, 2024 Dayo Lucio MD Other Provider Active Start: April 29, 2024 End: June 02, 2024 Jhonathan Ramírez MD Other Provider Active Start: April End: June 02, 2024 Мария Moralez APRN Other Provider Active Star t: April 29, 2024 End: June 02, 2024 Bernice Shah MD Other Provider Active Start: N 2023 End: June 02, 2024 Garry Meza MD Other Provider Active Start: No 2023 End: June 02, 2024 Federica Enamorado RN Other Provider Active Start: N 2023 End: June 02, 2024 Team Status: Active Member Role Status Dates Tamia France MD Primary Care Provider Active St art: April 30, 2024 Trace Laughlin MD Admit Provider, Atte nding Provider, Other Provider Active Start: April 30, 2024 Sakshi Marley , [place] Other Provider Active Star t: April 30, 2024 Shama Chan , [place] Other Provider Active Start : April 30, 2024 Paola Shirley , [place] Other Provider Active Star t: April 30, 2024 Makayla Bermudez , [place] Other Provider Active Start: N 2023 Barbara Montemayor , [place] Other Provider Active Start: No 2023 Isabel Chairez MD Other Provider Active Start: April 30, 2024 Luciana Hughes DO Other Provider Active Start : April 30, 2024 Yusef Pereira MD Other Provider Active Start : April 30, 2024 Manish Soliman DO Other Provider Active Start: April 30, 2024 Kumar Roth MD Other Provider Active Start: April 30, 2024 Krystal Andres MD Other Provider Active Start : April 30, 2024 Mandi Kim DO Other Provider Active St art: April 30, 2024 Jonathan Bravo MD Other Provider Active Start: N 2023 Parvin Santo APRN Other Provider Active Start: April 30, 2024 Rony Diaz MD Other Provider Active Start: April 30, 2024 Charlie Whitfield MD Other Provider Active Start: N 2023 Boyd Bhat MD Other Provider Active Start: April 30, 2024 Kym Correia MD Other Provider Active Start: April 30, 2024 Mandi Louise DO Other Provider Active Start: April 30, 2024 Nay Maloney MD Other Provider Active Start: No 2023 Naun Vazquez MD Other Provider Active Start: Apr Rosa Stark , CONCRETE POURER-C Other Provider Active St art: April 30, 2024 Jens Szymanski APRN Other Provider Active Star t: April 30, 2024 Kyler Hess MD Other Provider Active Start: April 30, 2024 Godwin Ayoub MD Other Provider Active Start: No 2023 Johnson Lucio MD Other Provider Active Start: Apr Cassy Koch MD Other Provider Active Star t: April 30, 2024 Neto Tomlinson MD Other Provider Active Start: N 2023 Harriett Troncoso DO Other Provider Active Start: No 2023 Ever Brewer DO Other Provider Active Start : April 30, 2024 Juani Whalen APRN Other Provider Active Start: April 30, 2024 Fawad Benavidez DO Other Provider Active Start: April 30, 2024 Mechelle Obrien MD Other Provider Active Sta rt: April 30, 2024 Fanny Espinal APRN Other Provider Active Start : April 30, 2024 Raiza Bauer APRN Other Provider Active St art: April 30, 2024 Bartolo Ford MD Other Provider Active Start: N 2023 Carlos Champion MD Other Provider Active S tart: April 30, 2024 Sarwat Hernandez , Other Provider Active Star t: April 30, 2024 Phan Massey , Other Provider Active Start: April 30, 2024 Dayo Lucio MD Other Provider Active Start: April 30, 2024 Jhonathan Ramírez MD Other Provider Active Start: April Мария Moralez APRN Other Provider Active Star t: April 30, 2024 Bernice Shah MD Other Provider Active Start: N ov2023 Garry Meza MD Other Provider Active Start: No vember 2023 Federica Enamorado RN Other Provider Active Start: N 2023 Team Status: Active Member Role Status Dates Tamia France MD Primary Care Provider Active St art: May 07, 2024 Trace Laughlin MD Admit Provider, Atte nding Provider, Other Provider Active Start: May 07, 2024 Sakshi Marley RN Other Provider Active Star t: May 07, 2024 Shama Chan RN Other Provider Active Start : May 07, 2024 Paola Shirley , [place] Other Provider Active Star t: May 07, 2024 Makayla Bermudez RN Other Provider Active Start: N 2023 Barbara Montemayor RN Other Provider Active Start: No [id number] Isabel Chairez MD Other Provider Active Start: May 07, 2024 Luciana Hughes DO Other Provider Active Start : May 07, 2024 Yusef Pereira MD Other Provider Active Start : May 07, 2024 Manish Soliman DO Other Provider Active Start: May 07, 2024 Kumar Roth MD Other Provider Active Start: May 07, 2024 Krystal Andres MD Other Provider Active Start : May 07, 2024 Mandi Kim DO Other Provider Active St art: May 07, 2024 Jonathan Bravo MD Other Provider Active Start: N 2023 Parvin Santo APRN Other Provider Active Start: May 07, 2024 Rony Diaz MD Other Provider Active Start: May 07, 2024 Charlie Whitfield MD Other Provider Active Start: N ov2023 Boyd Bhat MD Other Provider Active Start: May 07, 2024 Kym Correia MD Other Provider Active Start: May 07, 2024 Mandi Louise , Other Provider Active Start: May 07, 2024 Nay Maloney MD Other Provider Active Start: No [id number] Naun Vazquez MD Other Provider Active Start: Apr Rosa Stark , CONCRETE POURER-C Other Provider Active St art: May 07, 2024 Jens Szymanski APRN Other Provider Active Star t: May 07, 2024 Kyler Hess MD Other Provider Active Start: May 07, 2024 Godwin Ayoub MD Other Provider Active Start: No vember 2023 Johnson Lucio MD Other Provider Active Start: Apr Cassy Koch MD Other Provider Active Star t: May 07, 2024 Neto Tomlinson MD Other Provider Active Start: N 2023 Harriett Troncoso , Other Provider Active Start: No 2023 Ever Brewer , Other Provider Active Start : May 07, 2024 Juani Whalen APRN Other Provider Active Start: May 07, 2024 Fawad Benavidez DO Other Provider Active Start: May 07, 2024 Mechelle Obrien MD Other Provider Active Sta rt: May 07, 2024 Fanny Espinal APRN Other Provider Active Start : May 07, 2024 Raiza Bauer APRN Other Provider Active St art: May 07, 2024 Bartolo Ford MD Other Provider Active Start: N ov2023 Carlos Champion MD Other Provider Active S tart: May 07, 2024 Sarwat Hernandez , Other Provider Active Star t: May 07, 2024 Phan Massey DO Other Provider Active Start: May 07, 2024 Dayo Lucio MD Other Provider Active Start: May 07, 2024 Jhonathan Ramírez MD Other Provider Active Start: April Мария Moralez APRN Other Provider Active Star t: May 07, 2024 Bernice Shah MD Other Provider Active Start: N ovember 2023 Garry Meza MD Other Provider Active Start: No vember 4 Federica Enamorado , [place] Other Provider Active Start: N 2023 Team Status: Active Member Role Status Dates Tamia France MD Primary Care Provider Active St art: 2024 Trace Laughlin MD Admit Provider, Atte nding Provider, Other Provider Active Start: 2024 Sakshi Marley , [place] Other Provider Active Star t: 2024 Shama Chan , [place] Other Provider Active Start : 2024 Paola Shirley RN Other Provider Active Star t: 2024 Makayla Bermudez , [place] Other Provider Active Start: N 2023 Barbara Montemayor RN Other Provider Active Start: No 2023 Isabel Chairez MD Other Provider Active Start: 2024 Luciana Hughes DO Other Provider Active Start : 2024 Yusef Pereira MD Other Provider Active Start : 2024 Manish Soliman DO Other Provider Active Start: 2024 Kumar Roth MD Other Provider Active Start: 2024 Krystal Andres MD Other Provider Active Start : 2024 Mandi Kim DO Other Provider Active St art: 2024 Jonathan Bravo MD Other Provider Active Start: N 2023 Parvin Santo APRN Other Provider Active Start: 2024 Rony Diaz MD Other Provider Active Start: 2024 Charlie Whitfield MD Other Provider Active Start: N 2023 Boyd Bhat MD Other Provider Active Start: 2024 Kym Correia MD Other Provider Active Start: 2024 Mandi Louise DO Other Provider Active Start: 2024 Nay Maloney MD Other Provider Active Start: No 2023 Naun Vazquez MD Other Provider Active Start: Apr Rosa Stark NP-C Other Provider Active St art: 2024 Adjondi M Born , DRAFTING SUPERVISOR Other Provider Active Star t: 2024 Kyler Hess MD Other Provider Active Start: 2024 Godwin Ayoub MD Other Provider Active Start: No 2023 Johnson Lucio MD Other Provider Active Start: Apr Cassy Koch MD Other Provider Active Star t: 2024 Neto Tomlinson MD Other Provider Active Start: N 2023 Harriett Troncoso , DO Other Provider Active Start: No 2023 Ever Brewer , DO Other Provider Active Start : 2024 Juani Whalen APRN Other Provider Active Start: 2024 Fawad Benavidez , Other Provider Active Start: 2024 Mechelle Obrien MD Other Provider Active Sta rt: 2024 Fanny Espinal APRN Other Provider Active Start : 2024 Raiza Bauer APRN Other Provider Active St art: 2024 Bartolo Ford MD Other Provider Active Start: N 2023 Carlos Champion MD Other Provider Active S tart: 2024 Sarwat Hernandez , Other Provider Active Star t: 2024 Phan Massey DO Other Provider Active Start: 2024 Dayo Lucio MD Other Provider Active Start: 2024 Jhonathan Ramírez MD Other Provider Active Start: April Мария Moralez APRN Other Provider Active Star t: 2024 Bernice Shah MD Other Provider Active Start: N 2023 Garry Meza MD Other Provider Active Start: No 2023 Federica Enamorado RN Other Provider Active Start: N 2023 Team Status: Active Member Role Status Dates Tamia France MD Primary Care Provider Active St art: May 21, 2024 Trace Laughlin MD Admit Provider, Othe r Provider Active Start: May 21, 2024 Sakshi Marley RN Other Provider Active Star t: May 21, 2024 Shama Chan RN Other Provider Active Start : May 21, 2024 Paola Shirley , [place] Other Provider Active Star t: May 21, 2024 Makayla Bermudez RN Other Provider Active Start: ec2023 Brabara Montemayor RN Other Provider Active Start: 2023 Isabel Chairez MD Other Provider Active Start: May 21, 2024 Luciana Hughes , Other Provider Active Start : May 21, 2024 Yusef Pereira MD Other Provider Active Start : May 21, 2024 Manish Soliman , Other Provider Active Start: May 21, 2024 Kumar Roth MD Other Provider Active Start: May 21, 2024 Krystal Andres MD Other Provider Active Start : May 21, 2024 Mandi Kim DO Other Provider Active St art: May 21, 2024 Jonathan Bravo MD Other Provider Active Start: 2023 Parvin Santo APRN Other Provider Active Start: May 21, 2024 Rony Diaz MD Other Provider Active Start: May 21, 2024 Charlie Whitfield MD Other Provider Active Start: 2023 Boyd Bhat MD Other Provider Active Start: May 21, 2024 Kym Correia MD Other Provider Active Start: May 21, 2024 Mandi Louise DO Other Provider Active Start: May 21, 2024 Nay Maloney MD Other Provider Active Start: 2023 Naun Vazquez MD Other Provider Active Start: May Rosa Stark NP-C Other Provider Active St art: May 21, 2024 Jens Szymanski APRN Other Provider Active Star t: May 21, 2024 Kyler Hess MD Other Provider Active Start: May 21, 2024 Godwin Ayoub MD Other Provider Active Start: 2023 Johnson Lucio MD Other Provider Active Start: May Cassy Koch MD Other Provider Active Star t: May 21, 2024 Neto Tomlinson MD Other Provider Active Start: 2023 Harriett Aba , DO Other Provider Active Start: 2023 Ever Brewer , DO Other Provider Active Start : May 21, 2024 Juani Whalen APRN Other Provider Active Start: May 21, 2024 Fawad Benavidez , DO Other Provider Active Start: May 21, 2024 Mechelle Obrien MD Other Provider Active Sta rt: May 21, 2024 Fanny Espinal DRAFTING SUPERVISOR Other Provider Active Start : May 21, 2024 Raiza Bauer , DRAFTING SUPERVISOR Other Provider Active St art: May 21, 2024 Bartolo Ford MD Other Provider Active Start: [id number] Carlos Champion MD Other Provider Active S tart: May 21, 2024 Sarwat Hernandez , DO Other Provider Active Star t: May 21, 2024 Phan Massey , Other Provider Active Start: May 21, 2024 Dayo Lucio MD Other Provider Active Start: May 21, 2024 Jhonathan Ramírez MD Other Provider Active Start: May 21, 2024 Мария Moralez APRN Other Provider Active Star t: May 21, 2024 Bernice Shah MD Other Provider Active Start: 2023 Garry Meza MD Other Provider Active Start: 2023 Federica Enamorado RN Other Provider Active Start: 2023 Amelie Childress APRN Attending Provider Active Start: May 21, 2024 Team Status: Active Member Role Status Dates Tamia France MD Primary Care Provider Active St art: May 30, 2024 Trace Laughlin MD Admit Provider, Othe r Provider Active Start: May 30, 2024 Sakshi Marley , [place] Other Provider Active Star t: May 30, 2024 Shama Chan , [place] Other Provider Active Start : May 30, 2024 Paola Shirley , [place] Other Provider Active Star t: May 30, 2024 Makayla Bermudez , [place] Other Provider Active Start: ec2023 Barbara Montemayor RN Other Provider Active Start: 2023 Isabel Chairez MD Other Provider Active Start: May 30, 2024 Luciana Hughes , Other Provider Active Start : May 30, 2024 Yusef Pereira MD Other Provider Active Start : May 30, 2024 Manish Soliman , Other Provider Active Start: May 30, 2024 Kumar Roth MD Other Provider Active Start: May 30, 2024 Krystal Andres MD Other Provider Active Start : May 30, 2024 Mandi Kim DO Other Provider Active St art: May 30, 2024 Jonathan Bravo MD Other Provider Active Start: 2023 Parvin Santo APRN Other Provider Active Start: May 30, 2024 Rony Diaz MD Other Provider Active Start: May 30, 2024 Charlie Whitfield MD Other Provider Active Start: 2023 Boyd Bhat MD Other Provider Active Start: May 30, 2024 Kym Correia MD Other Provider Active Start: May 30, 2024 Mandi Louise DO Other Provider Active Start: May 30, 2024 Nay Maloney MD Other Provider Active Start: 2023 Naun Vazquez MD Other Provider Active Start: May Rosa Stark , CONCRETE POURER-C Other Provider Active St art: May 30, 2024 Jens Szymanski APRN Other Provider Active Star t: May 30, 2024 Kyler Hess MD Other Provider Active Start: May 30, 2024 Godwin Ayoub MD Other Provider Active Start: 2023 Johnson Lucio MD Other Provider Active Start: May aCssy Koch MD Other Provider Active Star t: May 30, 2024 Neto Tomlinson MD Other Provider Active Start: 2023 Harriett Troncoso DO Other Provider Active Start: 2023 Ever Brewer DO Other Provider Active Start : May 30, 2024 Juani Whalen APRN Other Provider Active Start: May 30, 2024 Fawad Benavidez DO Other Provider Active Start: May 30, 2024 Mechelle Obrien MD Other Provider Active Sta rt: May 30, 2024 Fanny Espinal APRN Other Provider Active Start : May 30, 2024 Raiza Bauer APRN Other Provider Active St art: May 30, 2024 Bartolo Ford MD Other Provider Active Start: D ec2023 Carlos Champion MD Other Provider Active S tart: May 30, 2024 Sarwat Hernandez , Other Provider Active Star t: May 30, 2024 Phan Massey DO Other Provider Active Start: May 30, 2024 Dayo Lucio MD Other Provider Active Start: May 30, 2024 Jhonathan Ramírez MD Other Provider Active Start: May Мария Moralez APRN Other Provider Active Star t: May 30, 2024 Bernice Shah MD Other Provider Active Start: 2023 Garry Meza MD Other Provider Active Start: cember 2023 Federica Enamorado RN Other Provider Active Start: 2023 Cornelius Hollis MD Attending Provider Active Start: May 30, 2024 Team Status: Inactive Member Role Status Lola France MD Primary Care Provider Active St art: June 02, 2024 End: June 02, 2024 Gonzalo Nicole MD Attending Provider Active Start: June 02, 2024 End: June 02, 2024 Team Status: Active Member Role Status Lola France MD Primary Care Provider Active St art: July 12, 2024 Trace Laughlin MD Attending Provider Active Star t: July 12, 2024 Team Status: Inactive Member Role Status Lola France MD Primary Care Provider Active St art: July 12, 2024 End: July 12, 2024 Nancy Galvez , Emergency Provider Active Start: July 12, 2024 End: July 12, 2024 Team Status: Active Member Role Status Lola France MD Primary Care Provide r, Attending Provider, Referring Provider Active Start: April 09, 2024 Team Status: Active Member Role Status Lola France MD Primary Care Provider Active St art: June 22, 2024 Trace Laughlin MD Attending Provider Active Star t: June 22, 2024 Team Status: Inactive Member Role Status Lola France MD Primary Care Provider Active St art: October 07, 2023 End: October 07, 2023 Trip Enriquez MD Attending Provider Active Sta rt: October 07, 2023 End: October 07, 2023 Team Status: Active Member Role Status Lola France MD Primary Care Provider Active St art: October 07, 2023 Trip Enriquez MD Attending Provider, Other Provider Active Start: October 07, 2023 Team Status: Inactive Member Role Status Lola France MD Primary Care Provider Active St art: December 08, 2023 End: December 08, 2023 Moody Barbosa MD Attending Provider Active Start: December 08, 2023 End: December 08, 2023 Team Status: Inactive Member Role Status Lola France MD Primary Care Provider Active St art: December 24, 2023 End: December 24, 2023 Moody Barbosa MD Attending Provider Active Start: December 24, 2023 End: December 24, 2023 Team Status: Active Member Role Status Lola France MD Primary Care Provide r, Attending Provider, Referring Provider Active Start: September 10, 2023 Team Status: Inactive Member Role Status Lola France MD Primary Care Provider Active St art: September 11, 2023 End: September 11, 2023 Trip Enriquez MD Attending Provider Active Sta rt: September 11, 2023 End: September 11, 2023 Team Status: Inactive Member Role Status Lola France MD Primary Care Provider Active Referral Self Attending Provider Active Team Status: Active Member Role Status Lola France MD Primary Care Provider, Attending Prov ider Active Team Status: Inactive Member Role Status Lola France MD Primary Care Provider, Attending Prov ider Active Team Status: Inactive Member Role Status Lola France MD Primary Care Provider Active Trip Enriquez MD Attending Provider Active Third Rigger Relationship Specialty Start Date End Date Tamia France MD [address] [place] [address] PCP - General 11/11/01 Team Status: Inactive Member Role Status Lola France MD Primary Care Provider Active MEG Lagunas Attending Provider Active Third Rigger Relationship Specialty Start Date End Date Tamia France MD [address] [place] [address] PCP - General Internal Medicine 11/07/22 Jr. Kalen Ramírez, [address] [place] [address] Consulting Physician Orthopaedic Surgery 11/25/22 Kaila Zaman, [address] [place] [address] Consulting Physician Obstetrics and Gynecology 11/25/22 Third Rigger Relationship Specialty Start Date End Date Tamia France MD [address] [place] [address] PCP - General Internal Medicine 11/07/22 Jr. Kalen Ramírez, [address] [place] [address] Consulting Physician Orthopaedic Surgery 11/25/22 Kaila Zaman, [address] [place] [address] Consulting Physician Obstetrics and Gynecology 11/25/22 Team Status: Inactive Member Role Status Dates Tamia France MD Primary Care Provider Active St art: June 14, 2023 End: June 14, 2023 MEG Lagunas Attending Provider Active S tart: June 14, 2023 End: June 14, 2023 Team Status: Inactive Member Role Status Dates Tamia France MD Primary Care Provider Active St art: September 07, 2023 End: September 07, 2023 Gomez Ceron DO Emergency Provider Active Start: September 07, 2023 End: September 07, 2023 Team Status: Active Member Role Status Dates Tamia France MD Primary Care Provider Active St art: December 24, 2023 Moody Barbosa MD Attending Provider, Other Provider Act igor Start: December 24, 2023 Team Status: Inactive Member Role Status Lola France MD Primary Care Provider Active St art: January 05, 2024 End: January 05, 2024 Trip Enriquez MD Attending Provider Active Sta rt: January 05, 2024 End: January 05, 2024 Team Status: Inactive Member Role Status Lola France MD Primary Care Provider Active St art: February 02, 2024 End: February 02, 2024 Trip Enriquez MD Attending Provider Active Sta rt: February 02, 2024 End: February 02, 2024 Team Status: Inactive Member Role Status Lola France MD Primary Care Provider Active St art: February 24, 2024 End: February 24, 2024 Trip Enriquez MD Attending Provider Active Sta rt: February 24, 2024 End: February 24, 2024 Team Status: Active Member Role Status Lola France MD Primary Care Provider Active St art: February 24, 2024 Trip Enriquez MD Attending Provider, Other Provider Active Start: February 24, 2024 Team Status: Inactive Member Role Status Lola France MD Primary Care Provider Active St art: March 10, 2024 End: March 10, 2024 Trip Enriquez MD Attending Provider Active Sta rt: March 10, 2024 End: March 10, 2024 Third Rigger Relationship Specialty Start Date End Tamia France MD [address] [facility] 230 [place] [address] PCP - General Internal Medicine 11/07/22 Jr. Kalen Ramírez, [facility] 150 [place] [address] Consulting Physician Orthopaedic Surgery 11/25/22 Kaila Zaman DO [address] [facility] 210 [place] [address] Consulting Physician Obstetrics and Gynecology 11/25/22 Moody Barbosa MD 703 [facility] 352 [place] [address] Referring Physician Gastroenterology 01/05/24 Tony Sapp MD [address] [place] [address] Referring Physician Neurology 01/19/24 Canelo Villarreal MD [address] Professional building 1 [place] [phone] Referring Physician Rheumatology 01/19/24 Maikel Castillo Optometry 01/19/24 Third Rigger Relationship Specialty Start Date End Date Tamia France MD [address] [place] [id number] PCP - General Internal Medicine 11/07/22 Jr. Kalen Ramírez DO [address] [place] [address] 150 [place] [address] Consulting Physician Orthopaedic Surgery 11/25/22 Kaila aZman DO [address] [place] [address] Consulting Physician Obstetrics and Gynecology 11/25/22 Moody Barbosa MD [address] [place] [address] 352 [place] [address] Referring Physician Gastroenterology 01/05/24 Tony Sapp MD [address] [place] [address] Referring Physician Neurology 01/19/24 Canelo Villarreal MD [address] Professional building 1 [place] [address] Referring Physician Rheumatology 01/19/24 Maikel Castillo Optometry 01/19/24 Third Rigger Relationship Specialty Start Date End Date Tamia France MD [address] [place] [address] PCP - General Internal Medicine 11/07/22 Jr. Kalen Ramírez, [address] [place] [address] Consulting Physician Orthopaedic Surgery 11/25/22 Kaila Zaman DO [address] [place] [address] Consulting Physician Obstetrics and Gynecology 11/25/22 Moody Barbosa MD [address] [place] [address] 352 [place] [address] Referring Physician Gastroenterology 01/05/24 Tony Sapp MD [address] [place] [address] Referring Physician Neurology 01/19/24 Canelo Villarreal MD [address] Professional building 1 [place] [address] Referring Physician Rheumatology 01/19/24 Maikel Castillo Optometry 01/19/24 Third Rigger Relationship Specialty Start Date End Date Tamia France MD [address] [place] [address] PCP - General Internal Medicine 11/07/22 Jr. Kalen Ramírez, [address] [place] [address] Consulting Physician Orthopaedic Surgery 11/25/22 Kaila Zaman DO [address] [place] [address] Consulting Physician Obstetrics and Gynecology 11/25/22 Moody Barbosa MD 703 [facility] 352 [place] [address] Referring Physician Gastroenterology 01/05/24 Tony Sapp MD [address] [place] [address] Referring Physician Neurology 01/19/24 Canelo Villarreal MD [address] Professional building 1 [place] [address] Referring Physician Rheumatology 01/19/24 Maikel Castillo Optometry 01/19/24 Third Rigger Relationship Specialty Start Date End Date Tamia France MD [address] [place] [address] PCP - General Internal Medicine 11/07/22 Jr. Kalen Ramírez DO 112 [facility] 150 [place] [address] Consulting Physician Orthopaedic Surgery 11/25/22 Kaila Zaman DO [address] [place] [address] Consulting Physician Obstetrics and Gynecology 11/25/22 Moody Barbosa MD 703 [facility] 352 [place] [address] Referring Physician Gastroenterology 01/05/24 Tony Sapp MD [address] [place] [address] Referring Physician Neurology 01/19/24 Canelo Villarreal MD [address] Professional building 1 [place] [address] Referring Physician Rheumatology 01/19/24 Maikel Castillo Optometry 01/19/24 Third Rigger Relationship Specialty Start Date End Date Tamia France MD [address] [place] [address] PCP - General Internal Medicine 11/07/22 Jr. Kalen Ramírez DO [address] [place] [address] 150 [place] [address] Consulting Physician Orthopaedic Surgery 11/25/22 Kaila Zaman DO [address] [place] [address] Consulting Physician Obstetrics and Gynecology 11/25/22 Moody Barbosa MD 703 [facility] 352 [place] [address] Referring Physician Gastroenterology 01/05/24 Tony Sapp MD [address] [place] [address] Referring Physician Neurology 01/19/24 Canelo Villarreal MD [address] Professional building 1 [place] [address] Referring Physician Rheumatology 01/19/24 Maikel Castillo Optometry 01/19/24 Third Rigger Relationship Specialty Start Date End Date Tamia France MD [address] [place] [address] PCP - General Internal Medicine 11/07/22 Jr. Kalen Ramírez DO 112 [facility] 150 [place] [address] Consulting Physician Orthopaedic Surgery 11/25/22 Kaila Zaman DO [address] [place] [address] Consulting Physician Obstetrics and Gynecology 11/25/22 Moody Barbosa MD 703 [facility] 352 [place] [address] Referring Physician Gastroenterology 01/05/24 Tony Sapp MD [address] [place] [address] Referring Physician Neurology 01/19/24 Canelo Villarreal MD [address] Professional building 1 [place] [address] Referring Physician Rheumatology 01/19/24 Maikel Castillo Optometry 01/19/24 Third Rigger Relationship Specialty Start Date End Date Tamia France MD [address] [place] [address] PCP - General Internal Medicine 11/07/22 Jr. Kalen Ramírez, DO [address] [place] [address] Consulting Physician Orthopaedic Surgery 11/25/22 Kaila Zaman DO [address] [place] [address] Consulting Physician Obstetrics and Gynecology 11/25/22 Moody Barbosa MD 703 [facility] 352 [place] [address] Referring Physician Gastroenterology 01/05/24 Tony Sapp MD [address] [place] [address] Referring Physician Neurology 01/19/24 Canelo Villarreal MD [address] Professional building 1 [place] [address] Referring Physician Rheumatology 01/19/24 Maikel Castillo Optometry 01/19/24 Third Rigger Relationship Specialty Start Date End Date Tamia France MD [address] [place] [address] PCP - General Internal Medicine 11/07/22 Jr. Kalen Ramírez, DO [address] [place] [address] Consulting Physician Orthopaedic Surgery 11/25/22 Kaila Zaman DO [address] [place] [address] Consulting Physician Obstetrics and Gynecology 11/25/22 Moody Barbosa MD 703 [facility] 352 [place] [address] Referring Physician Gastroenterology 01/05/24 Tony Sapp MD [address] [facility] [address] [place] [address] Referring Physician Neurology 01/19/24 Canelo Villarreal MD [address] [facility] [address] Professional building 1 [place] [address] Referring Physician Rheumatology 01/19/24 Maikel Castillo Optometry 01/19/24 Third Rigger Relationship Specialty Start Date End Date Tamia France MD [address] [place] [address], [address] [place] [address] PCP - General 05/07/16 Third Rigger Relationship Specialty Start Date End Date Tamia France MD [address] [place] [address], [address] [place] [address] PCP - General 05/07/16 Third Rigger Relationship Specialty Start Date End Date Tamia France MD [facility] [address] [facility] [address] [place] [address] PCP - General Internal Medicine 07/22/24 Team Status: Active Member Role Status Dates Tamia France MD Primary Care Provider Active St art: July 21, 2024 Trace Laughlin MD Attending Provider Active Star t: July 21, 2024 Team Status: Inactive Member Role Status Dates Tamia France MD Primary Care Provider Active St art: July 22, 2024 End: July 22, 2024 Lenard Chatterjee APRN Emergency Provider Active Start: July 22, 2024 End: July 22, 2024 Third Rigger Relationship Specialty Start Date End Date Tamia France MD [address] [place] [id number] PCP - General Internal Medicine 11/07/22 Jr. Kalen Ramírez, DO [address] [place] [address] Consulting Physician Orthopaedic Surgery 11/25/22 Kaila Zaman DO [address] [place] [address] Consulting Physician Obstetrics and Gynecology 11/25/22 Moody Barbosa MD 703 [facility] 352 [place] [address] Referring Physician Gastroenterology 01/05/24 Tony Sapp MD [address] [place] [address] Referring Physician Neurology 01/19/24 Canelo Villarreal MD [address] Professional building 1 [place] [address] Referring Physician Rheumatology 01/19/24 Maikel Castillo Optometry 01/19/24 Third Rigger Relationship Specialty Start Date End Date Tamia France MD [address] [place] [id number] PCP - General Internal Medicine 11/07/22 Jr. Kalen Ramírez, DO [address] [place] [address] Consulting Physician Orthopaedic Surgery 11/25/22 Kaila Zaman DO [address] [place] [address] Consulting Physician Obstetrics and Gynecology 11/25/22 Moody Barbosa MD 703 [facility] [address] [place] [address] Referring Physician Gastroenterology 01/05/24 Tony Sapp MD [address] [place] [address] Referring Physician Neurology 01/19/24 Canelo Villarreal MD [address] Professional building 1 [place] [address] Referring Physician Rheumatology 01/19/24 Maikel Castillo Optometry 01/19/24 Third Rigger Relationship Specialty Start Date End Date Tamia France MD [address] [facility] [address] [place] [address] PCP - General 05/07/16 Third Rigger Relationship Specialty Start Date End Date Tamia France MD [address] [facility] [place] [address] PCP - General 05/07/16 Third Rigger Relationship Specialty Start Date End Date Tamia France MD [address] [facility] [address], [address] [place] [address] PCP - General 05/07/16 Third Rigger Relationship Specialty Start Date End Date Tamia France MD [address] [place] [address] PCP - General Internal Medicine 11/07/22 Jr. Kalen Ramírez, DO [address] [place] [address] Consulting Physician Orthopaedic Surgery 11/25/22 Kaila Zaman, DO [address] [place] [address] Consulting Physician Obstetrics and Gynecology 11/25/22 Moody Barbosa MD 703 [facility] 352 [place] [address] Referring Physician Gastroenterology 01/05/24 Tony Sapp MD [address] [place] [address] Referring Physician Neurology 01/19/24 Canelo Villarreal MD [address] Professional building 1 [place] [address] Referring Physician Rheumatology 01/19/24 Maikel Castillo Optometry 01/19/24 Third Rigger Relationship Specialty Start Date End Date Tamia France MD [address] [place] [address] PCP - General Internal Medicine 11/07/22 Jr. Kalen Ramírez, DO [address] [place] [address] Consulting Physician Orthopaedic Surgery 11/25/22 Kaila Zaman DO [address] [place] [address] Consulting Physician Obstetrics and Gynecology 11/25/22 Moody Barbosa MD 703 [facility] 352 [place] [address] Referring Physician Gastroenterology 01/05/24 Tony Sapp MD [address] [place] [address] Referring Physician Neurology 01/19/24 Canelo Villarreal MD [address] Professional building 1 [place] [address] Referring Physician Rheumatology 01/19/24 Maikel Castillo Optometry 01/19/24 Third Rigger Relationship Specialty Start Date End Date Tamia France MD [address] [place] [address] PCP - General Internal Medicine 07/22/24 Third Rigger Relationship Specialty Start Date End Date Tamia France MD [address] [place] [address] PCP - General Internal Medicine 07/22/24 Third Rigger Relationship Specialty Start Date End Date Tamia France MD [address] [place] [address] PCP - General Internal Medicine 07/22/24 Third Rigger Relationship Specialty Start Date End Date Tamia France MD [address] [place] [address] PCP - General Internal Medicine 11/07/22 Jr. Kalen Ramírez DO 112 [facility] 150 [place] [address] Consulting Physician Orthopaedic Surgery 11/25/22 Kaila Zaman DO [address] [place] [address] Consulting Physician Obstetrics and Gynecology 11/25/22 Moody Barbosa MD 703 [facility] 352 [place] [address] Referring Physician Gastroenterology 01/05/24 Tony Sapp MD [address] [place] [address] Referring Physician Neurology 01/19/24 Canelo Villarreal MD [address] Professional building 1 [place] [address] Referring Physician Rheumatology 01/19/24 Maikel Castillo Optometry 01/19/24 Third Rigger Relationship Specialty Start Date End Date Tamia France MD [address] [place] [address] PCP - General Internal Medicine 11/07/22 Jr. Kalen Ramírez DO [address] [facility] 150 [place] [address] Consulting Physician Orthopaedic Surgery 11/25/22 Kaila Zaman DO [address] [place] [address] Consulting Physician Obstetrics and Gynecology 11/25/22 Moody Barbosa MD 703 [facility] [address] [place] [address] Referring Physician Gastroenterology 01/05/24 Tony Sapp MD [address] [place] [id number] Referring Physician Neurology 01/19/24 Canelo Villarreal MD [address] 1 [place] [id number] Referring Physician Rheumatology 01/19/24 Maikel Castillo Optometry 01/19/24 Third Rigger Relationship Specialty Start Date End Date Tamia France MD [address] [place] [address] PCP - General 11/11/01 Third Rigger Relationship Specialty Start Date End Date Tamia France MD [address] [place] [address] PCP - General 11/11/01 Third Rigger Relationship Specialty Start Date End Date Tamia France MD [address] [place] [id number] PCP - General 11/11/01 Third Rigger Relationship Specialty Start Date End Date Tamia France MD [address] [place] [address] PCP - General 11/11/01 Third Rigger Relationship Specialty Start Date End Date Tamia France MD [address] [place] [address] PCP - General 11/11/01 Third Rigger Relationship Specialty Start Date End Date Tamia France MD [address] [place] [id number] PCP - General Internal Medicine 11/07/22 Jr. Kalen Ramírez, DO [address] [place] [address] Consulting Physician Orthopaedic Surgery 11/25/22 Kaila Zaman DO [address] [place] [address] Consulting Physician Obstetrics and Gynecology 11/25/22 Moody Barbosa MD [address] [place] [address] Referring Physician Gastroenterology 01/05/24 Tony Sapp MD [address] [place] [address] Referring Physician Neurology 01/19/24 Canelo Villarreal MD [address] Professional [address] 1 [place] [address] Referring Physician Rheumatology 01/19/24 Maikel Castillo Optometry 01/19/24 Third Rigger Relationship Specialty Start Date End Date Tamia France MD [address] [place] [address] PCP - General Internal Medicine 11/07/22 Jr. Kalen Ramírez, DO [address] [place] [address] Consulting Physician Orthopaedic Surgery 11/25/22 Kaila Zaman DO [address] [place] [address] Consulting Physician Obstetrics and Gynecology 11/25/22 Moody Barbosa MD [address] [place] [address] Referring Physician Gastroenterology 01/05/24 Tony Sapp MD [address] [place] [address] Referring Physician Neurology 01/19/24 Canelo Villarreal MD [address] Professional [address] 1 [place] [address] Referring Physician Rheumatology 01/19/24 Maikel Castillo Optometry 01/19/24 Third Rigger Relationship Specialty Start Date End Date Tamia France MD [address] [place] [address] PCP - General Internal Medicine 11/07/22 Jr. Kalen Ramírez, DO [address] [place] [address] 150 [place] [address] Consulting Physician Orthopaedic Surgery 11/25/22 Kaila Zaman DO [address] [place] [address] Consulting Physician Obstetrics and Gynecology 11/25/22 Moody Barbosa MD [address] [place] [address] Referring Physician Gastroenterology 01/05/24 Tony Sapp MD [address] [place] [id number] Referring Physician Neurology 01/19/24 Canelo Villarreal MD [address] 1 [place] [phone] Referring Physician Rheumatology 01/19/24 Miakel Castillo Optometry 01/19/24 Third Rigger Relationship Specialty Start Date End Date Tamia France MD [address] [place] [address] PCP - General 11/11/01 Third Rigger Relationship Specialty Start Date End Date Tamia France MD [address] [place] [address] PCP - General Internal Medicine 11/07/22 Jr. Kalen Ramírez DO [address] [place] [address] 150 [place] [address] Consulting Physician Orthopaedic Surgery 11/25/22 Kaila Zaman DO [address] [place] [address] Consulting Physician Obstetrics and Gynecology 11/25/22 Moody Barbosa MD [address] [place] [address] Referring Physician Gastroenterology 01/05/24 Tony Sapp MD [address] [place] [address] Referring Physician Neurology 01/19/24 Canelo Villarreal MD [address] [place] [address] Referring Physician Rheumatology 01/19/24 Maikel Castillo Optometry 01/19/24 Third Rigger Relationship Specialty Start Date End Date Tamia France MD [address] [place] [address] PCP - General Internal Medicine 11/07/22 Jr. Kalen Ramírez DO [address] [place] [address] [address] [place] [address] Consulting Physician Orthopaedic Surgery 11/25/22 Kaila Zaman DO [address] [place] [address] Consulting Physician Obstetrics and Gynecology 11/25/22 Moody Barbosa MD [address] [place] [address] Referring Physician Gastroenterology 01/05/24 Tony Sapp MD [address] [place] [address] Referring Physician Neurology 01/19/24 Canelo Villarreal MD [address] Professional [address] 1 [place] [address] Referring Physician Rheumatology 01/19/24 Maikel Castillo Optometry 01/19/24 Third Rigger Relationship Specialty Start Date End Date Tamia France MD [address] [place] [address] PCP - General 11/11/01 Third Rigger Relationship Specialty Start Date End Date Tamia France MD [address] [place] [id number] PCP - General 11/11/01 Third Rigger Relationship Specialty Start Date End Date Tamia France MD [address] [place] [id number] PCP - General 11/11/01 Third Rigger Relationship Specialty Start Date End Date Tamia France MD [address] [place] [address] PCP - General Internal Medicine 11/07/22 Jr. Kalen Ramírez DO [address] [place] [address] 150 [place] [address] Consulting Physician Orthopaedic Surgery 11/25/22 Kaila Zaman DO [address] [place] [address] Consulting Physician Obstetrics and Gynecology 11/25/22 Moody Barbosa MD [address] [place] [address] Referring Physician Gastroenterology 01/05/24 Tony Sapp MD [address] [place] [address] Referring Physician Neurology 01/19/24 Canelo Villarreal MD [address] [place] [address] Referring Physician Rheumatology 01/19/24 Maikel Castillo Optometry 01/19/24 Third Rigger Relationship Specialty Start Date End Date Tamia France MD [address] [place] [address] PCP - General 11/11/01 Third Rigger Relationship Specialty Start Date End Date Tamia France MD [address] [place] [address] PCP - General 11/11/01 Third Rigger Relationship Specialty Start Date End Date Tamia France MD [address] [place] [address] PCP - General 11/11/01 Third Rigger Relationship Specialty Start Date End Date Tamia France MD [address] [place] [address] PCP - General 11/11/01 Third Rigger Relationship Specialty Start Date End Date Tamia France MD [address] [place] [address] PCP - General 11/11/01 Third Rigger Relationship Specialty Start Date End Date Tamia France MD [address] [place] [address] PCP - General 11/11/01 Third Rigger Relationship Specialty Start Date End Date Tamia France MD [address] [place] [address] PCP - General Internal Medicine 11/07/22 Jr. Kalen Ramírez DO [address] [place] [address] Consulting Physician Orthopaedic Surgery 11/25/22 Kaila Zaman DO [address] [place] [id number] Consulting Physician Obstetrics and Gynecology 11/25/22 Moody Barbosa MD [address] [place] [address] Referring Physician Gastroenterology 01/05/24 Tony Sapp MD [address] [place] [address] Referring Physician Neurology 01/19/24 Canelo Villarreal MD [address] [place] [address] Referring Physician Rheumatology 01/19/24 Maikel Castillo Optometry 01/19/24 Third Rigger Relationship Specialty Start Date End Date Tamia France MD [address] [place] [address] PCP - General 11/11/01 Third Rigger Relationship Specialty Start Date End Date Tamia France MD [address] [place] [address] PCP - General Internal Medicine 11/07/22 Jr. Kalen Ramírez, [address] [place] [address] Consulting Physician Orthopaedic Surgery 11/25/22 Kaila Zaman DO [address] [place] [address] Consulting Physician Obstetrics and Gynecology 11/25/22 Moody Barbosa MD [address] [facility] [address] [place] [address] Referring Physician Gastroenterology 01/05/24 Tony Sapp MD [address] [place] [address] Referring Physician Neurology 01/19/24 Canelo Villarreal MD [address] [facility] Professional building 1 [place] [address] Referring Physician Rheumatology 01/19/24 Maikel Castillo Optometry 01/19/24 Third Rigger Relationship Specialty Start Date End Date Tamia France MD [address] [facility], [address] [place] [address] PCP - General 05/07/16 Third Rigger Relationship Specialty Start Date End Date Tamia France MD [address] [facility] [address] [place] [address] PCP - General 11/11/01 Third Rigger Relationship Specialty Start Date End Date Tamia France MD [address] [facility] [address] [address] [place] [address] PCP - General Internal Medicine 11/07/22 Jr. Kalen Ramírez DO [address] [place] [address] 150 [place] [address] Consulting Physician Orthopaedic Surgery 11/25/22 Kaila Zaman DO [address] [place] [address] Consulting Physician Obstetrics and Gynecology 11/25/22 Moody Barbosa MD [address] [place] [address] Referring Physician Gastroenterology 01/05/24 Tony Sapp MD [address] [place] [address] Referring Physician Neurology 01/19/24 Canelo Villarreal MD [address] Professional [address] [place] [address] Referring Physician Rheumatology 01/19/24 Maikel Castillo Optometry 01/19/24 Goals (unrecognized section and content) Goals may be documented in a n alternate section Source Comments (unrecognize d section and content) In the event this informatio n is protected by the Federal Confidentiality of Alcohol and Drug Abuse Patient Records regulations: The Federal rules restrict any use of the information to criminally investigate or prosecute any alcohol or drug abuse patient.[facility] the event this information is protected by the Federal Confidentiality of Alcohol and Drug Abuse Patient Records regulations: The Federal rules restrict any use of the information to criminally investigate or prosecute any alcohol or drug abuse patient.[facility] CenterIn the event this information is protected by the Federal Confidentiality of Alcohol and Drug Abuse Patient Records regulations: The Federal rules restrict any use of the information to criminally investigate or prosecute any alcohol or drug abuse patient.[facility] Center[facility] the event this information is protected by the Federal Confidentiality of Alcohol and Drug Abuse Patient Records regulations: The Federal rules restrict any use of the information to criminally investigate or prosecute any alcohol or drug abuse patient.[facility] Center[facility] the event this information is protected by the Federal Confidentiality of Alcohol and Drug Abuse Patient Records regulations: The Federal rules restrict any use of the information to criminally investigate or prosecute any alcohol or drug abuse patient.[facility] Center[facility] the event this information is protected by the Federal Confidentiality of Alcohol and Drug Abuse Patient Records regulations: The Federal rules restrict any use of the information to criminally investigate or prosecute any alcohol or drug abuse patient.[facility] CenterIn the event this information is protected by the Federal Confidentiality of Alcohol and Drug Abuse Patient Records regulations: The Federal rules restrict any use of the information to criminally investigate or prosecute any alcohol or drug abuse patient.[facility] CenterIn the event this information is protected by the Federal Confidentiality of Alcohol and Drug Abuse Patient Records regulations: The Federal rules restrict any use of the information to criminally investigate or prosecute any alcohol or drug abuse patient.[facility] CenterIn the event this information is protected by the Federal Confidentiality of Alcohol and Drug Abuse Patient Records regulations: The Federal rules restrict any use of the information to criminally investigate or prosecute any alcohol or drug abuse patient.[facility] CenterIn the event this information is protected by the Federal Confidentiality of Alcohol and Drug Abuse Patient Records regulations: The Federal rules restrict any use of the information to criminally investigate or prosecute any alcohol or drug abuse patient.[facility] CenterIn the event this information is protected by the Federal Confidentiality of Alcohol and Drug Abuse Patient Records regulations: The Federal rules restrict any use of the information to criminally investigate or prosecute any alcohol or drug abuse patient.[facility] CenterIn the event this information is protected by the Federal Confidentiality of Alcohol and Drug Abuse Patient Records regulations: The Federal rules restrict any use of the information to criminally investigate or prosecute any alcohol or drug abuse patient.[facility] CenterIn the event this information is protected by the Federal Confidentiality of Alcohol and Drug Abuse Patient Records regulations: The Federal rules restrict any use of the information to criminally investigate or prosecute any alcohol or drug abuse patient.[facility] CenterIn the event this information is protected by the Federal Confidentiality of Alcohol and Drug Abuse Patient Records regulations: The Federal rules restrict any use of the information to criminally investigate or prosecute any alcohol or drug abuse patient.[facility] CenterIn the event this information is protected by the Federal Confidentiality of Alcohol and Drug Abuse Patient Records regulations: The Federal rules restrict any use of the information to criminally investigate or prosecute any alcohol or drug abuse patient.[facility] CenterIn the event this information is protected by the Federal Confidentiality of Alcohol and Drug Abuse Patient Records regulations: The Federal rules restrict any use of the information to criminally investigate or prosecute any alcohol or drug abuse patient.[facility] CenterIn the event this information is protected by the Federal Confidentiality of Alcohol and Drug Abuse Patient Records regulations: The Federal rules restrict any use of the information to criminally investigate or prosecute any alcohol or drug abuse patient.[facility] CenterIn the event this information is protected by the Federal Confidentiality of Alcohol and Drug Abuse Patient Records regulations: The Federal rules restrict any use of the information to criminally investigate or prosecute any alcohol or drug abuse patient.[facility] the event this information is protected by the Federal Confidentiality of Alcohol and Drug Abuse Patient Records regulations: The Federal rules restrict any use of the information to criminally investigate or prosecute any alcohol or drug abuse patient.[facility] CenterIn the event this information is protected by the Federal Confidentiality of Alcohol and Drug Abuse Patient Records regulations: The Federal rules restrict any use of the information to criminally investigate or prosecute any alcohol or drug abuse patient.[facility] CenterIn the event this information is protected by the Federal Confidentiality of Alcohol and Drug Abuse Patient Records regulations: The Federal rules restrict any use of the information to criminally investigate or prosecute any alcohol or drug abuse patient.[facility] the event this information is protected by the Federal Confidentiality of Alcohol and Drug Abuse Patient Records regulations: The Federal rules restrict any use of the information to criminally investigate or prosecute any alcohol or drug abuse patient.[facility] CenterIn the event this information is protected by the Federal Confidentiality of Alcohol and Drug Abuse Patient Records regulations: The Federal rules restrict any use of the information to criminally investigate or prosecute any alcohol or drug abuse patient.[facility] FOR RECORDS PERTAINING TO PATIENTS WHO ARE [...] BE BASED ON THE PRIMARY CLINICAL RECORDS. [facility]. provides no warranty or guarantee of the accuracy or completeness of information in this document.
--- OUTSIDE RECORDS SUMMARY | 2025-01-29 08:37 | XMS_ITS | Encounter Summary ---
Author Organization [facility] Address [address] [place] [address] Phone Care Team Providers Care Pediatric Cns Name Role Phone Maurice Lee MD Primary Care Provider [phone] Encounter Details Date Type Department Care Team (Late st Contact Info) Description 07/12/[address] [facility] [address] [place] [phone] Scanning, Generic Provider Social History Tobacco Use [...] Description 03/23/2025 10:00 AM EDT Office Visit [facility] [address] [facility] [address] [place] [phone] Kimmie Gaines MD [address] [facility] [address] [place] [address] documented as of this encounter Visit Diagnoses Not on filedocumented in this encounter Care Teams Pediatric Cns Relationship Specialty Start Date End Date Maurice Lee MD [address] [place] [address] PCP - General Internal Medicine 07/22/24 documented as of this encounter
--- OUTSIDE RECORDS SUMMARY | 2025-01-29 08:37 | XMS_ITS | Encounter Summary ---
Author Organization [facility] Address [address] [place] [address] Phone Care Team Providers Care Cryptological Technician Name Role Phone Maurice Lee MD Primary Care Provider [phone] Encounter Details Date Type Department Care Team (Late Contact Info) Description 06/02/2024 Orders Only [facility] [address] [place] [phone] Scanning, Generic Provider Social History Tobacco Use [...] Description 03/23/2025 10:00 AM EDT Office Visit [facility] [address] [facility] [address] [place] [phone] Kimmie Gaines MD [address] [facility] [address] [place] [address] documented as of this encounter Procedures Procedure Name Priority Date/Time Associated Diagnosis Comments HOLTER AND CARDIAC EVENT MONITOR - ONBASE SCAN 06/02/2024 documented in this encounter Results * Holter and Cardiac Event Monitor - Onbase Scan (06/02/2024) Narrative 06/02/2024 Ordered by an unspecified provider. us Generic Provider Scanning [facility] OCEDURES Final Result documented in this encounter Visit Diagnoses Not on filedocumented in this encounter Care Teams Cryptological Technician Relationship Specialty Start Date End Date Maurice Lee MD [address] [facility] [address] [place] [address] PCP - General Internal Medicine 07/22/24 documented as of this encounter
--- OUTSIDE RECORDS SUMMARY | 2025-01-29 08:37 | XMS_ITS | Clinical Summary ---
Author Organization [facility] Address [address] [place] [address] Phone Care Team Providers Care Electronics Research Engineer Name Role Phone Maurice Lee MD Primary Care Provider [phone] Allergies No known active allergies Medications calcium carbonate/vitam in D3 (CALTRATE WITH VITAMIN D3 ORAL) Take 1 tablet by mouth once daily. Active ascorbate calcium-bioflav onoid (Colleen-C with Bioflavonoids) 1,000-200 mg tablet Take 1 tablet by mouth early in the morning.. Active vit A/vit C/vit E/zinc/copper (PRESERVISION AREDS ORAL) Take 1 tablet by mouth once daily. Active vit 91/iron/folic/d gutierrez ( + DHA ORAL) Take 1 tablet by mouth early in the morning.. Active cholecalciferol (Vitamin D3) 50 MCG (2000 UT) tablet Take 1 tablet (50 mcg) by mouth once daily. Active cyanocobalamin (Vitamin B-12) 500 mcg tablet Take 1 tablet (500 mcg) by mouth every other day. Active ALPRAZolam (Xanax) 0.25 mg tablet Take 1 tablet (0.25 mg) by mouth 3 times a day as needed. 04/16/2024 Active denosumab (Prolia) 60 mg/mL syringe Inject 1 mL (60 mg total) under the skin every 6 months. Active ezetimibe (Zetia) 10 mg tablet Take 1 tablet (10 mg) by mouth once daily. 06/03/2024 Active omeprazole (PriLOSEC) [address] capsule Take 1 capsule (40 mg) by mouth 2 times a day. Active apixaban (Eliquis) 5 mg tablet Take 1 tablet (5 mg) by mouth twice a day. 04/30/2024 Active Active Problems Problem Noted Date Diagnosed Date BMI 24.0-24.9, adult 07/22/2024 Former smoker 07/22/2024 Paroxysmal SVT (supraventricular tachycardia) Abnormal EKG 07/22/2024 History of TIA (transient ischemic attack) 07/22 Stroke (Multi) 07/22/2024 Mixed hyperlipidemia 07/22/2024 Polymyalgia rheumatica (Multi) 07/22/2024 Family History Medical History Relation Name Comments Esophageal cancer Brother Liver cancer Brother Lung cancer Father Heart disease Mother Relation Name Status Comments Brother Father Mother Social History Tobacco Use Types Packs/Day Years Used Date Smoking Tobacco: Former Cigarettes Q uit: 2006 Smokeless Tobacco: Never Tobacco Cessation:Counseling Given: Not Answered Alcohol Use Standard Drinks/Week Comments Not Currently 0 (1 standard drink = 0.6 oz pur e alcohol) Comments Unknown Sex and Gender Information Value Date Recorded Sex Assigned at Not on file Legal Sex Female 10:31 AM EST Gender Identity Not on file Sexual Orientation Not on file Last Filed Vital Signs Vital Sign Reading Time Taken Comments Blood Pressure 128/78 08/12/2024 1:58 PM EST Pulse 73 08/12/2024 1:58 PM EST Temperature - - Respiratory Rate - - Oxygen Saturation - - Inhaled Oxygen Concentration - - Weight 63.6 kg (140 lb 3.2 oz) 07/22/2024 9:38 A M EST Height 162.6 cm (5' 4 ) 07/22/2024 9:38 AM EST Body Mass Index 24.07 07/22/2024 9:38 AM EST Plan of Treatment Upcoming Encounters Date Type Department Care Team (Late st Contact Info) Description 03/23/2025 10:00 AM EDT Office Visit [facility] [address] [facility] [address] [place] [address] Kimmie Gaines MD [address] [place] [address] Health Maintenance Due Date Last Done Comments CT Colonography 1955 FIT-DNA (Cologuard) 1955 FIT 1955 Medicare Annual Wellness Visit (AWV) 1955 Sigmoidoscopy 1955 MMR Vaccines (1 of 1 - Standard series) 1956 Diabetes Screening 1973 Hepatitis C Screening 1973 DTaP/Tdap/Td Vaccines (1 - Tdap) 1977 Mammogram 02/19/2023 02/19/2022, 10/18/2020 COVID-19 Vaccine ( season) 2024 04/07/2024, 04/07/2023, 04/22/2022, Additional history exists Influenza Vaccine (#1) 2025 , 04/07/2023, 04/01/2022, Additional history exists Bone Density Scan 02/04/2026 02/05/2024, 07/23/2021 Colonoscopy 11/30/2028 11/30/2018, 04/07/2009 Colorectal Cancer Screening 11/30/2028 Lipid Panel 06/23/2029 06/23/2024 Pneumococcal Vaccine Completed 11/25/2022, 07/02/2010, 04/09/2001 Zoster Vaccines Completed 04/18/2023, 02/14/2023 RSV High Risk: (Elderly (60+) or Population) Completed 04/07/2024 HIB Vaccines Aged Out No longer eligi ble based on patient's age to complete this topic HPV Vaccines Aged Out No longer eligi ble based on patient's age to complete this topic Hepatitis A Vaccines Aged Out No long er eligible based on patient's age to complete this topic Hepatitis B Vaccines Aged Out No long er eligible based on patient's age to complete this topic IPV Vaccines Aged Out No longer eligi ble based on patient's age to complete this topic Meningococcal Vaccine Aged Out No smith bijan eligible based on patient's age to complete this topic Rotavirus Vaccines Aged Out No longer eligible based on patient's age to complete this topic Insurance Member Subscriber Plan / Payer (Ef fective 2023-Present) Name:Danyell Bae Relation to Subscriber:Self Name:Danyell Bae Payer ID:[id number] (NAIC) Type:Not on file Address: [facility] [address] [place], [place] [id number] [address] MEDICARE DUAL COMPLETE Member Subscriber Plan / Payer ( fective 2023-) Name:Danyell Bae Relation to Subscriber:Self Name:Danyell Bae Payer ID:[id number] (NAIC) Type:Not on file Address: [place] [id number] [facility] MEDICARE Care Teams Electronics Research Engineer Relationship Specialty Start Date End Date Maurice Lee MD [address] [address] PCP - General Internal Medicine 07/22/24
--- OUTSIDE RECORDS SUMMARY | 2025-01-29 08:37 | XMS_ITS | Encounter Summary ---
Author Organization [facility] Address [address] [place] [address] Phone Care Team Providers Care Worship Leader Name Role Phone Maurice Lee MD Primary Care Provider [phone] Encounter Details Date Type Department Care Team (Late Contact Info) Description 06/02/2024 Orders Only [facility] [address] [place] [phone] Scanning, Generic Provider Social History Tobacco Use [...] Description 03/23/2025 10:00 AM EDT Office Visit [facility] [address] [facility] [address] [place] [phone] Kimmie Gaines MD [address] [facility] [address] [place] [address] documented as of this encounter Procedures Procedure Name Priority Date/Time Associated Diagnosis Comments HOLTER AND CARDIAC EVENT MONITOR - ONBASE SCAN 06/02/2024 documented in this encounter Results * Holter and Cardiac Event Monitor - Onbase Scan (06/02/2024) Narrative 06/02/2024 Ordered by an unspecified provider. us Generic Provider Scanning [facility] Final Result documented in this encounter Visit Diagnoses Not on filedocumented in this encounter Care Teams Worship Leader Relationship Specialty Start Date End Date Maurice Lee MD [address] [facility] [address] [place] [address] PCP - General Internal Medicine 07/22/24 documented as of this encounter
--- OUTSIDE RECORDS SUMMARY | 2025-01-29 08:37 | XMS_ITS | Clinical Summary ---
Author Organization [facility] Address [address] [facility], [address] [place] [address] Care Team Providers Care Principal Biostatistician Name Role Phone Maurice Lee MD Primary Care Provider [phone] Allergies No known active allergies Medications buPROPion (WELLBUTRIN XL) 300 MG extended release tablet Take 300 mg by mouth every morning Active Bioflavonoid Products (TOMMY C PO) Take by mouth Active predniSONE (DELTASONE) 20 MG tablet Take 20 mg by mouth daily Active methotrexate (RHEUMATREX) 2.5 MG chemo tablet Take by mouth once a week Active traMADol (ULTRAM) 50 MG tablet Take 50 mg by mouth daily. Active Active Problems No known active problems Family History Medical History Relation Name Comments Cancer Father Arthritis Mother Heart Disease Mother High Blood Pressure Mother Relation Name Status Comments Father Mother Social History Tobacco Use Types Packs/Day Years Used Date Smoking Tobacco: Former Smokeless Tobacco: Never Comments Unknown Sex and Gender Information Value Date Recorded Sex Assigned at Not on file Legal Sex Female 9:41 AM EDT Gender Identity Not on file Sexual Orientation Not on file Last Filed Vital Signs Vital Sign Reading Time Taken Comments Blood Pressure - - Pulse - - Temperature 36.3 C (97.3 F) 03/03/2020 10:39 AM EDT Respiratory Rate - - Oxygen Saturation - - Inhaled Oxygen Concentration - - Weight 72.6 kg (160 lb) 03/03/2020 10:39 AM EDT Height 162.6 cm (5' 4 ) 03/03/2020 10:39 AM EDT Body Mass Index 27.46 03/03/2020 10:39 AM EDT Plan of Treatment Not on file Insurance [facility] Care Teams Principal Biostatistician Relationship Specialty Start Date End Date Maurice Lee MD PCP - General 03/03/20
[2025-01-29 09:19] LABS: Anion Gap 12.3; Blood Urea Nitrogen 12.0 mg/dL (7.0-18.0); Calcium 8.8 mg/dL (8.5-10.1); Carbon Dioxide 27.7 mmol/L (21.0-32.0); Chloride 105 mmol/L (98-107); Estimated GFR (African America >60 (>=60 mL/min/1.73m^2); Estimated GFR (Non-African Ame >60 (>=60 mL/min/1.73m^2); Glucose 103 mg/dL (74-106); Potassium 4.0 mmol/L (3.5-5.1); Sodium 141 mmol/L (136-145)
== END 2025-01-29 08:31 | disposition home or self-care (01) ==
PROVIDERS: PCP Internal Medicine; Visit Provider Nurse Practitioner Family
DX: Z79.899 Other long term (current) drug therapy (principal); Z98.84 Bariatric surgery status
CPT/HCPCS: 36415; 80048